=== PATIENT | female | born 1965 | race Caucasian/White ===

== ENCOUNTER 2016-08-24 12:12 | Inpatient (IN) | payer MEDICARE, OTHER ==
[2016-08-24] MEDS ORDERED: methylPREDNISolone SOD SUCCI 125 MG/2 ML VIAL IV STA (12:32)
[2016-08-24] MEDS ORDERED: LEVOFLOXACIN 750MG-D5W PMX 750 MG in DEXTROSE/WATER 1 150ML.BAG IVPB STA (12:32)
[2016-08-24] MEDS ORDERED: ASPIRIN 81 MG CHEW PO STA (12:34)
--- NOTE | 2016-08-24 12:43 | ED ---
SOB HPI - General Chief Complaint: Shortness of Breath Stated Complaint: SOILA Time Seen by Provider: 08/24/16 12:25 Source: patient Mode of arrival: wheelchair Limitations: no limitations - History of Present Illness Initial Comments: This 51-year-old white female presents with complaint of shortness of breath. She barely has chronic COPD and congestive heart failure. She is on oxygen 24 hours per day. Her physician apparently wanted her to have a trial of not being on oxygen to further assess for eligibility of continued oxygen through insurance. She stopped her oxygen last night. She states that she lasted approximately one and a half hours. Her pulse ox well on the 4 L was initially 96% and dropped down to 54% before she could no longer tolerate not being on the oxygen. She states that she's had increased shortness of breath ever since that time. She did take her breathing treatments this morning with minimal relief. She denies any fevers or chills. She has had a slight cough with yellowish production. She said some mild rhinorrhea. She describes a minimal dull uppers sternal chest pain. She states that she feels congested in her chest. No other complaints or modifying factors. - Related Data Home Medications Medication Instructions Recorded Confirmed Famotidine [Pepcid] 20 mg PO DAILY 08/19/14 08/24/16 Loratadine 10 mg PO DAILY PRN 08/19/14 08/24/16 Ferrous Sulfate [Iron (65 MG 325 mg PO DAILY 08/20/14 08/24/16 Elemental)] Nitroglycerin Sl Tabs [Nitrostat] 0.4 mg SUBLINGUAL Q5M PRN 08/20/14 08/24/16 metFORMIN HCL 1,000 mg PO AC-BID 08/20/14 08/24/16 Albuterol Nebulized [Ventolin 3 ml INHALATION RT-TID 03/13/15 08/24/16 Nebulized] Lisinopril [Zestril] 5 mg PO DAILY 03/13/15 08/24/16 Gabapentin [Neurontin] 300 mg PO BID 03/15/16 08/24/16 Simvastatin [Zocor] 40 mg PO HS 03/15/16 08/24/16 Febuxostat [Uloric] 80 mg PO DAILY 05/04/16 08/24/16 Umeclidinium Brm/Vilanterol Tr 1 puff INHALATION RT-DAILY 05/04/16 08/24/16 [Anoro Ellipta 62.5-25 Mcg INH] Furosemide [Lasix] 80 mg PO BID@0900,1600 06/08/16 08/24/16 Insulin Glargine [Lantus] 120 unit SQ DAILY@0900 06/08/16 08/24/16 Pregabalin [Lyrica] 100 mg PO BID 06/08/16 08/24/16 Metoprolol Tartrate [Lopressor] 12.5 mg PO DAILY 07/18/16 08/24/16 Montelukast [Singulair] 10 mg PO HS 07/18/16 08/24/16 Albuterol Inhaler [Ventolin Hfa 1 - 2 puff INHALATION RT-Q6H PRN 08/24/16 Inhaler] Previous Rx's Medication Instructions Recorded Ipratropium-Albuterol Nebulize 3 ml INHALATION RT-Q4H PRN #0 05/06/16 [Duoneb 0.5 mg-3 mg/3 ml Soln] ampul.neb traMADol HCl [Ultram] 50 mg PO QID PRN #0 tab 05/06/16 INSULIN LISPRO (humaLOG) [humaLOG 10 unit SQ AC-TID #1 vial 05/25/16 (formulary)] Potassium Chloride ER [K-Dur 20] 20 meq PO BID tab.er.prt 05/25/16 Allergies Allergy/AdvReac Type Severity Reaction Status Date / Time No Known Allergies Allergy Verified 08/24/16 13:12 Review of Systems ROS Statement: Those systems with pertinent positive or pertinent negative responses have been documented in the HPI. ROS Other: All systems not noted in ROS Statement are negative. Past Medical History Past Medical History: Asthma, Chest Pain / Angina, Heart Failure, COPD, Diabetes Mellitus, Hyperlipidemia, Hypertension, Neurologic Disorder, Osteoarthritis (OA), Pneumonia, Respiratory Disorder, Sleep Apnea/CPAP/BIPAP, Syncope, Thyroid Disorder Additional Past Medical History / Comment(s): GOUT, NEUROPATHY-FEET, sleep apnea but won't wear cpap, has home 02 4 liters n/c atc, past resp failure, History of Any Multi-Drug Resistant Organisms: None Reported Past Surgical History: Section Additional Past Surgical History / Comment(s): LT CARPAL TUNNEL Past Anesthesia/Blood Transfusion Reactions: No Reported Reaction Additional Past Anesthesia/Blood Transfusion Reaction / Comment(s): CLAUSTERPHOBIA Past Psychological History: No Psychological Hx Reported Additional Psychological History / Comment(s): PT LIVES AT HOME WITH A FRIEND, CURRENTLY RECIEVING HOME CARE SERVICES THRU [facility] NURSE AND PT WEEKLY. Smoking Status: Former smoker Past Alcohol Use History: None Reported Additional Past Alcohol Use History / Comment(s): STARTED SMOKING 1975-STOPPED 2007 Past Drug Use History: None Reported - Past Family History Father Family Medical History: COPD, Diabetes Mellitus Mother History Unknown: Yes Family Medical History: No Reported History Additional Family Medical History / Comment(s): AT AGE 43 FROM SUICIDE General Exam - General Exam Comments Initial Comments: GENERAL: The patient is well nourished and well hydrated. VITAL SIGNS: Heart rate, blood pressure, respiratory rate reviewed as recorded in nurse's notes. EYES: Pupils are round and reactive. Extraocular movements are intact. No conjunctival / lid redness or swelling. ENT: No external evidence of injury, swelling, or ecchymosis. Airway is patent. Throat is clear. NECK: Nontender. No swelling or evidence of injury. No subcutaneous emphysema. Trachea is midline. No thyroid mass. HEART: Regular rate and rhythm. Good peripheral pulses. LUNGS/CHEST: Decreased respirations noted bilaterally. No ecchymosis, subcutaneous emphysema, or tenderness. ABDOMEN: Abdomen soft without tenderness. No palpable masses or organomegaly. No peritoneal signs. No abdominal wall swelling or ecchymosis. Morbidly obese. EXTREMITIES: No extremity tenderness. Normal muscle tone and function. No thoracolumbar tenderness. NEUROLOGIC: Sensation is grossly intact. Cranial nerve exam reveals face is symmetrical, tongue is midline, speech is clear. SKIN: No abrasions or ecchymosis is noted. No induration or masses noted. PSYCHIATRIC: Alert and oriented. Appropriate behavior and judgment. Limitations: no limitations Course Vital Signs 08/24/16 08/24/16 08/24/16 12:17 13:34 13:46 Temperature 99.3 F Pulse Rate 99 74 76 Respiratory 24 Rate Blood Pressure 120/67 O2 Sat by Pulse 84 L Oximetry 08/24/16 14:08 Temperature Pulse Rate 88 Respiratory 22 Rate Blood Pressure 97/51 O2 Sat by Pulse 91 L Oximetry Medical Decision Making - Medical Decision Making The patient was seen and examined. All diagnostics were reviewed. The patient is placed on a registered nurse cardiac and no ectopy is identified. The EKG was done and shows a normal sinus rhythm at a rate of 87. There is some mild artifact noted. There is no acute ST-T wave changes identified. The VT interval is 208 , castration is 78, and the QTc interval is 438. This is consistent with previous EKG dated 07/18/2016. Old records were reviewed. Patient had a chest x-ray which did not show any acute process per radiology. The laboratories reviewed shows elevation of the CO2 at 44 consistent with her severe COPD. Her glucose is elevated at 192 and chloride is down at 93. Is felt that she likely does have an exacerbation of her COPD. The possibility of a bronchitis is certainly possible as well. Is felt as though she would require admission to the hospital she does have acute respiratory failure. The case will be discussed with internal medicine their future and patient admitted to the telemetry unit for further treatment. - Lab Data Result diagrams: 08/24/16 12:55 08/24/16 12:55 Lab Results 08/24/16 08/24/16 08/24/16 Range/Units 12:55 12:55 12:55 WBC 5.8 (3.8-10.6) k/uL RBC 4.43 (3.80-5.40) m/uL Hgb 12.9 (11.4-16.0) gm/dL Hct 42.1 (34.0-46.0) % MCV 95.0 (80.0-100.0) fL MCH 29.2 (25.0-35.0) pg MCHC 30.7 L (31.0-37.0) g/dL RDW 13.5 (11.5-15.5) % Plt Count 359 (150-450) k/uL Neutrophils % 73 % Lymphocytes % 16 % Monocytes % 8 % Eosinophils % 2 % Basophils % 1 % Neutrophils # 4.2 (1.3-7.7) k/uL Lymphocytes # 0.9 L (1.0-4.8) k/uL Monocytes # 0.5 (0-1.0) k/uL Eosinophils # 0.1 (0-0.7) k/uL Basophils # 0.0 (0-0.2) k/uL Hypochromasia Slight PT (9.0-12.0) sec INR (<1.1) APTT (22.0-30.0) sec Sodium 147 H (137-145) mmol/L Potassium 4.6 (3.5-5.1) mmol/L Chloride 93 L (98-107) mmol/L Carbon Dioxide 44 H* (22-30) mmol/L Anion Gap 10 mmol/L BUN 24 H (7-17) mg/dL Creatinine 0.93 (0.52-1.04) mg/dL Est GFR (MDRD) Af Amer >60 (>60 ml/min/1.73 sqM) Est GFR (MDRD) Non-Af >60 (>60 ml/min/1.73 sqM) Glucose 192 H (74-99) mg/dL Calcium 9.6 (8.4-10.2) mg/dL Total Bilirubin 0.4 (0.2-1.3) mg/dL AST 22 (14-36) U/L ALT 50 (9-52) U/L Alkaline Phosphatase 90 (38-126) U/L Total Creatine Kinase 28 L (30-135) U/L CK-MB (CK-2) 0.4 (0.0-2.4) ng/mL CK-MB (CK-2) Rel Index 1.4 Troponin I <0.012 (0.000-0.034) ng/mL NT-Pro-B Natriuret Pep pg/mL Total Protein 7.0 (6.3-8.2) g/dL Albumin 3.9 (3.5-5.0) g/dL 08/24/16 08/24/16 Range/Units 12:55 12:55 WBC (3.8-10.6) k/uL RBC (3.80-5.40) m/uL Hgb (11.4-16.0) gm/dL Hct (34.0-46.0) % MCV (80.0-100.0) fL MCH (25.0-35.0) pg MCHC (31.0-37.0) g/dL RDW (11.5-15.5) % Plt Count (150-450) k/uL Neutrophils % % Lymphocytes % % Monocytes % % Eosinophils % % Basophils % % Neutrophils # (1.3-7.7) k/uL Lymphocytes # (1.0-4.8) k/uL Monocytes # (0-1.0) k/uL Eosinophils # (0-0.7) k/uL Basophils # (0-0.2) k/uL Hypochromasia PT 10.3 (9.0-12.0) sec INR 1.0 (<1.1) APTT 23.1 (22.0-30.0) sec Sodium (137-145) mmol/L Potassium (3.5-5.1) mmol/L Chloride (98-107) mmol/L Carbon Dioxide (22-30) mmol/L Anion Gap mmol/L BUN (7-17) mg/dL Creatinine (0.52-1.04) mg/dL Est GFR (MDRD) Af Amer (>60 ml/min/1.73 sqM) Est GFR (MDRD) Non-Af (>60 ml/min/1.73 sqM) Glucose (74-99) mg/dL Calcium (8.4-10.2) mg/dL Total Bilirubin (0.2-1.3) mg/dL AST (14-36) U/L ALT (9-52) U/L Alkaline Phosphatase (38-126) U/L Total Creatine Kinase (30-135) U/L CK-MB (CK-2) (0.0-2.4) ng/mL CK-MB (CK-2) Rel Index Troponin I (0.000-0.034) ng/mL NT-Pro-B Natriuret Pep 32 pg/mL Total Protein (6.3-8.2) g/dL Albumin (3.5-5.0) g/dL Disposition Clinical Impression: Morbid obesity, Bronchitis, Diabetes, Acute respiratory failure with hypoxia, COPD exacerbation, Chest pain Disposition: ADMITTED IP TO THIS [facility] Condition: Fair Time of Disposition: 14:59 Decision Date: 08/24/16 Decision Time: 14:59
[2016-08-24] MEDS: IPRATROPIUM-ALBUTEROL 3 ML NEB INHALATION STA ×2 (13:32→13:33)
[2016-08-24 13:34] LABS: Basophils % (A) 1 %; CH 29.9; CHCM 31.6; Eosinophils # (A) 0.1 k/uL (0-0.7); Eosinophils % (A) 2 %; HCT 42.1 % (34.0-46.0); HDW 2.91; HGB 12.9 gm/dL (11.4-16.0); Hypochromasia Slight; Luc # (Auto) 0.09; Luc % (Auto) 2; Lymphocytes # (A) 0.9 k/uL (1.0-4.8); Lymphocytes % (A) 16 %; MCH 29.2 pg (25.0-35.0); MCHC 30.7 g/dL (31.0-37.0); Monocytes # (A) 0.5 k/uL (0-1.0); Monocytes % (A) 8 %; Neutrophils # (A) 4.2 k/uL (1.3-7.7); Neutrophils % (A) 73 %; RBC 4.43 m/uL (3.80-5.40); RDW 13.5 % (11.5-15.5); WBC 5.8 k/uL (3.8-10.6); WBC (Perox) 6.09
[2016-08-24 13:44] LABS: Partial Thromboplastin Time 23.1 sec (22.0-30.0); Prothrombin Time 10.3 sec (9.0-12.0)
[2016-08-24 13:58] LABS: Creatine Kinase 28 U/L (30-135)
[2016-08-24 13:59] LABS: ALT 50 U/L (9-52); AST 22 U/L (14-36); Alkaline Phosphatase 90 U/L (38-126); Blood Urea Nitrogen 24 mg/dL (7-17); Calcium 9.6 mg/dL (8.4-10.2); Chloride 93 mmol/L (98-107); Glucose 192 mg/dL (74-99); Non-African American GFR(MDRD) >60 (>60 ml/min/1.73 sqM); Potassium 4.6 mmol/L (3.5-5.1); Sodium 147 mmol/L (137-145); Total Bilirubin 0.4 mg/dL (0.2-1.3)
--- NOTE | 2016-08-24 14:04 | XR ---
EXAMINATION TYPE: XR chest 2V DATE OF EXAM: 08/24/2016 1:58 PM COMPARISON: Prior chest x-ray July 18, 2016. Prior CT chest August 10, 2016 HISTORY: History of COPD and CHF presents with shortness of breath TECHNIQUE: Frontal and lateral views of the chest are obtained. FINDINGS: Left mid lung linear scarring is redemonstrated. There is no suspicious new focal air spac e opacity, pleural effusion, or pneumothorax seen. The cardiac silhouette size is enlarged. The os seous structures are intact. IMPRESSION: Cardiomegaly with left mid lung scarring. No acute pulmonary process is identified. No s ignificant change from prior studies is seen.
[2016-08-24 14:06] LABS: Anion Gap 10 mmol/L
[2016-08-24 14:08] LABS: Carbon Dioxide 44 mmol/L (22-30)
[2016-08-24 14:11] LABS: Creatine Kinase MB 0.4 ng/mL (0.0-2.4); Troponin I <0.012 ng/mL (0.000-0.034)
[2016-08-24] MEDS ORDERED: NITROGLYCERIN SL TABS 0.4 MG TAB SUBLINGUAL PRN (15:02)
[2016-08-24] MEDS ORDERED: IPRATROPIUM-ALBUTEROL 3 ML NEB INHALATION PRN (15:02)
[2016-08-24] MEDS ORDERED: LORATADINE 10 MG TAB PO PRN (15:02)
[2016-08-24 17:50] LABS: Glucose,Whole Blood 270 mg/dL (75-99)
[2016-08-24] MEDS ORDERED: methylPREDNISolone SOD SUCCI 125 MG/2 ML VIAL IV SCH (18:00)
[2016-08-24] MEDS: INSULIN LISPRO (humaLOG) 300 UNIT/3 ML VIAL SQ SCH (18:08)
[2016-08-24] MEDS: FUROSEMIDE 80 MG TAB PO SCH (18:11)
[2016-08-24] MEDS: metFORMIN 500 MG TAB PO SCH (18:11)
--- NOTE | 2016-08-24 18:54 | HP ---
DATE OF ADMISSION: Patient is a 51-year-old female with a significant past medical history of morbid obesity, obstructive sleep apnea, restrictive lung disease, COPD, severe pulmonary hypertension. She came in with complaints of shortness of breath and ( ). Patient was told by her physician to cut stop the oxygen and see how she does, and patient stopped the oxygen; an hour later patient became more short of breath, found to have hypoxemia with saturations going ( ) 55%, because of which patient came to ER. Patient usually uses 4 L of oxygen. Patient is requiring 6 L at this point of time. Patient denied any nausea, vomiting. Patient was having some dry cough. Patient denied any sputum production. Patient denied any fever or chills. Chest x-ray did not show any significant pneumonic process. Patient denied any orthopnea or PND. Patient did not have any evidence of congestive heart failure but has right-sided heart failure and pedal edema, for which she takes Lasix. Patient was started on systemic steroids ( ) steroids may be minimally helpful because of mostly her restrictive lung disease ( ) Home medications include: 1. Famotidine. 2. Loratadine. 3. Ferrous sulfate. 4. Nitroglycerin. 5. Metformin. 6. Albuterol. 7. Lisinopril. 8. Gabapentin. 9. Simvastatin. 10. Uloric. 11. Lasix. 12. Lantus. 13. Pregabalin. 14. Metoprolol. 15. Montelukast (Singulair). 16. Insulin. 17. Potassium supplementation. ALLERGIES: NO KNOWN DRUG ALLERGIES. REVIEW OF SYSTEMS: CONSTITUTIONAL: No fever, no malaise, no fatigue. HEENT: No recent visual problems or hearing problems. Denied any sore throat. CARDIOVASCULAR: No chest pain, orthopnea, PND, no palpitations, no syncope. PULMONARY: As described in HPI. GASTROINTESTINAL: No diarrhea, no nausea, no vomiting, no abdominal pain. Normoactive bowel sounds. NEUROLOGICAL: No headaches, no weakness, no numbness. HEMATOLOGICAL: Denies any bleeding or petechiae. GENITOURINARY: Denies any burning micturition, frequency, or urgency. MUSCULOSKELETAL/RHEUMATOLOGICAL: Denies any joint pain, swelling, or any muscle pain. ENDOCRINE: Denies any polyuria or polydipsia. The rest of the 14 point review of systems is negative. Past medical history is significant for: 1. COPD. 2. Diabetes mellitus. 3. Hyperlipidemia. 4. Hypertension. 5. Osteoarthritis. 6. Sleep apnea; uses CPAP machine at home. 7. Hypothyroidism. 8. Carpal tunnel syndrome. 9. Claustrophobia. Social smoker; quit smoking in 2007. Denied any alcohol abuse or any drug abuse. FAMILY HISTORY: Father had COPD and diabetes mellitus. Mother had no significant reported history; at age 43 from suicide. PHYSICAL EXAMINATION: VITAL SIGNS: Temperature 99.3, pulse of 99. Pulse ox with 4 L was around 74%. Respiratory rate of 22. Saturating at 91% on 6 L of oxygen by nasal cannula. Patient's blood pressure is 97/51. GENERAL: Morbidly obese female. Alert and oriented x3. HEENT: Pupils are round and equally reacting to light. EOMI. No scleral icterus. No conjunctival pallor. Normocephalic, atraumatic. No pharyngeal erythema. No thyromegaly. CARDIOVASCULAR: S1 and S2 present. No murmurs, rubs, or gallops. PULMONARY: Decreased air entry to bilateral lung garibay. Minimal bilateral expiratory wheezing was appreciated. ABDOMEN: Soft, nontender, nondistended, normoactive bowel sounds. No palpable organomegaly. MUSCULOSKELETAL: No joint swelling or deformity. EXTREMITIES: Patient does have pedal edema. NEUROLOGICAL: Gross neurological examination did not reveal any focal deficits. SKIN: No rashes. LABORATORY DATA: CBC, CMP are abnormal for elevated bicarbonate of 44 secondary to chronic CO2 retention as well as probability of some contraction alkalosis. CBC did not show any leukocytosis. Chest x-ray as mentioned above ( ) within normal limits as well. ASSESSMENT AND PLAN: 1. Acute on chronic obstructive pulmonary disease exacerbation with the possibility of tracheobronchitis. Patient is on levofloxacin; I will just leave it alone for today; may not benefit much from the antibiotics. Patient has multiple pulmonary comorbidities which are affecting her respiratory status. Patient easily can get exacerbation from COPD because of the other multiple pulmonary comorbidities, including significant restrictive lung disease from morbid obesity, sleep apnea and pulmonary hypertension. Patient is on systemic steroids, inhalational treatment. Will continue with that. Her crusher and blender operator, Dr. Maciej Avila, was consulted. 2. Morbid obesity and sleep apnea syndrome. Counseling was provided. 3. Severe pulmonary hypertension. 4. Pedal edema secondary to right-sided heart failure. Continue with Lasix. Her kidney function is essentially within normal limits. 5. Elevated bicarbonate secondary to chronic carbon dioxide retention. 6. Diabetes mellitus. 7. Hyperlipidemia. 8. Hypertension. 9. Osteoarthritis. For above-mentioned chronic medical problems, will go ahead and continue her home medications. Will titrate insulin as needed. Because of the systemic steroids, patient will have elevated blood sugars, for which we will titrate the insulin as needed here. Patient primary care physician is Dr. Herrera Dimas.
[2016-08-24 20:08] LABS: Creatine Kinase 28 U/L (30-135)
[2016-08-24] MEDS: IPRATROPIUM-ALBUTEROL 3 ML NEB INHALATION PRN (20:10)
[2016-08-24] MEDS: BUDESONIDE 0.5 MG/2 ML NEBU INHALATION SCH (20:10)
[2016-08-24 20:13] LABS: Glucose,Whole Blood 343 mg/dL (75-99)
[2016-08-24 20:21] LABS: Creatine Kinase MB 0.3 ng/mL (0.0-2.4); Troponin I <0.012 ng/mL (0.000-0.034)
[2016-08-24] MEDS: PREGABALIN 100 MG CAP PO SCH (20:58)
[2016-08-24] MEDS: GABAPENTIN 300 MG CAP PO SCH (20:58)
[2016-08-24] MEDS: MONTELUKAST 10 MG TAB PO SCH (20:58)
[2016-08-24] MEDS: ATORVASTATIN 20 MG TAB PO SCH (20:58)
[2016-08-24] MEDS: POTASSIUM CHLORIDE ER 20 MEQ TAB.ER PO SCH (20:58)
[2016-08-24] MEDS: traMADol 50 MG TAB PO PRN (23:27)
[2016-08-24] MEDS: methylPREDNISolone SOD SUCCI 40 MG/ML 1 ML VIAL IV SCH (23:33)
[2016-08-25 02:14] LABS: Creatine Kinase 31 U/L (30-135)
[2016-08-25 02:27] LABS: Creatine Kinase MB 0.4 ng/mL (0.0-2.4); Troponin I <0.012 ng/mL (0.000-0.034)
[2016-08-25 05:38] LABS: Glucose,Whole Blood 356 mg/dL (75-99)
[2016-08-25 06:10] LABS: CH 29.5; HCT 38.9 % (34.0-46.0); HDW 2.82; Hypochromasia Slight; MCH 29.4 pg (25.0-35.0); MCHC 30.8 g/dL (31.0-37.0); MCV 95.4 fL (80.0-100.0); Mean Platelet Volume 7.2; RBC 4.08 m/uL (3.80-5.40); RDW 13.1 % (11.5-15.5); WBC 5.5 k/uL (3.8-10.6)
[2016-08-25 06:24] LABS: Anion Gap 15 mmol/L; Blood Urea Nitrogen 33 mg/dL (7-17); Calcium 9.7 mg/dL (8.4-10.2); Carbon Dioxide 37 mmol/L (22-30); Chloride 91 mmol/L (98-107); Cholesterol 168 mg/dL (<200); Glucose 383 mg/dL (74-99); HDL Cholesterol 37 mg/dL (40-60); Non-African American GFR(MDRD) >60 (>60 ml/min/1.73 sqM); Potassium 5.1 mmol/L (3.5-5.1); Sodium 143 mmol/L (137-145); Triglycerides 85 mg/dL (<150)
[2016-08-25] MEDS: metFORMIN 500 MG TAB PO SCH ×2 (07:19→17:55)
[2016-08-25] MEDS: INSULIN LISPRO (humaLOG) 300 UNIT/3 ML VIAL SQ SCH ×8 (07:20→19:51)
[2016-08-25] MEDS ORDERED: IPRATROPIUM-ALBUTEROL 3 ML NEB INHALATION SCH (08:00)
[2016-08-25] MEDS: BUDESONIDE 0.5 MG/2 ML NEBU INHALATION SCH ×2 (08:17→19:44)
[2016-08-25] MEDS: IPRATROPIUM-ALBUTEROL 3 ML NEB INHALATION PRN ×4 (08:17→19:44)
[2016-08-25] MEDS ORDERED: LEVOFLOXACIN 750MG-D5W PMX 750 MG in DEXTROSE/WATER 1 150ML.BAG IVPB SCH (09:00)
[2016-08-25] MEDS ORDERED: LISINOPRIL 5 MG TAB PO SCH (09:00)
--- NOTE | 2016-08-25 09:09 | CDI ---
In responding to this query, please exercise your independent professional judgment. The [facility] Coding Staff and Clinical Documentation Specialists appreciate your assistance in clarifying documentation, maintaining compliance with coding guidelines, accurately documenting patients condition and capturing severity of illness. The fact that a question is asked does not imply that any particular answer is desired or expected. Communication forms are a method of clarifying documentation and are not made part of the Legal Health Record. Thank you in advance for your clarification. Last Revision, October 2015 Cam Cho [address] [facility] [place] [address] Documentation Clarification Form Date: 08/25/2016 8:39:00 AM From: Bhumika Colon Admit Date: 08/24/2016 2:59:00 PM Patient Name: Vish Sam Visit Number: [id number] Dr. Colt Rudd History/Risk Factors: COPD CHF Morbid Obesity Diabetes Mellitus Exsmoker Home oxygen Clinical Indicators: Vital signs: RR 24, O2 sats 84% on 4L nasal cannula Found to have hypoxemia with sats down to 55% at home per H&P and ED report Treatment: Breathing tx IV Levaquin IV steroids O2 nasal cannula 4-6L In your professional opinion, can you please clarify if these findings signify one of the following conditions? Acuity: o Acute o Chronic o Acute on Chronic Respiratory Status: o Respiratory failure with hypercapnia o Respiratory failure with hypoxia o Other Diagnosis, please specify o Unable to determine Please document in your progress notes and discharge summary in order to capture severity of illness and risk of mortality. Include clinical findings that support your diagnosis. FYI: Press F11 to launch patient chart. Place X here if this finding has no clinical significance, is not applicable or if you are not able to provide any additional documentation. TOSIN
[2016-08-25] MEDS: methylPREDNISolone SOD SUCCI 40 MG/ML 1 ML VIAL IV SCH ×3 (09:22→22:48)
[2016-08-25] MEDS: ENOXAPARIN 40 MG/0.4 ML SYRINGE SQ SCH (09:23)
[2016-08-25] MEDS: GABAPENTIN 300 MG CAP PO SCH ×2 (09:23→17:58)
[2016-08-25] MEDS: ASPIRIN 325 MG TAB PO SCH (09:23)
[2016-08-25] MEDS: FAMOTIDINE 20 MG TAB PO SCH (09:24)
[2016-08-25] MEDS: FUROSEMIDE 80 MG TAB PO SCH ×2 (09:24→15:44)
[2016-08-25] MEDS: METOPROLOL TARTRATE 12.5 MG TAB PO SCH (09:24)
[2016-08-25] MEDS: ALLOPURINOL 100 MG TAB PO SCH ×2 (09:24→17:57)
[2016-08-25] MEDS: POTASSIUM CHLORIDE ER 20 MEQ TAB.ER PO SCH ×2 (09:25→17:58)
[2016-08-25] MEDS: FERROUS SULFATE 325 MG TAB PO SCH (09:25)
[2016-08-25] MEDS: PREGABALIN 100 MG CAP PO SCH ×3 (09:26→20:39)
[2016-08-25] MEDS: INSULIN GLARGINE 100 UNIT/ML 10 ML VIAL SQ SCH (09:27)
[2016-08-25] MEDS: traMADol 50 MG TAB PO PRN ×3 (09:40→22:48)
[2016-08-25 11:05] LABS: Hemoglobin A1C 8.4 % (4.2-6.1)
[2016-08-25 11:33] LABS: Glucose,Whole Blood 332 mg/dL (75-99)
--- NOTE | 2016-08-25 12:08 | P.PN ---
Subjective Principal diagnosis: Hypoxemia Patient seen and examined. Patient states her breathing is much better. She states she will never go without her oxygen again. She states she otherwise feels fine. Her breathing is at baseline. Objective - Vital Signs Vital signs: Vital Signs Temp 97.3 F L 08/25/16 03:41 Pulse 78 08/25/16 11:54 Resp 20 08/25/16 03:41 BP 123/58 08/25/16 03:41 Pulse Ox 91 L 08/25/16 03:41 Intake & Output 08/24/16 08/25/16 08/25/16 18:59 06:59 18:59 Intake Total 220 180 Output Total 2700 Balance 220 -2700 180 Weight 168.6 kg Intake: Oral 220 180 Output: Urine 2700 - Exam Gen.: Patient is alert and oriented 3, no acute distress, morbidly obese cardiovascular: Regular rate and rhythm, S1/S2 Lungs: Diminished breath sounds bilaterally otherwise clear Abdomen: Soft nontender nondistended positive bowel sounds Extremities: 2+ pitting edema - Labs CBC & Chem 7: 08/25/16 05:39 08/25/16 05:39 Labs: Abnormal Lab Results - Last 24 Hours (Table) 08/24/16 08/24/16 08/24/16 Range/Units 17:48 19:25 20:11 MCHC (31.0-37.0) g/dL Chloride (98-107) mmol/L Carbon Dioxide (22-30) mmol/L BUN (7-17) mg/dL Glucose (74-99) mg/dL POC Glucose (mg/dL) 270 H 343 H (75-99) mg/dL Hemoglobin A1c (4.2-6.1) % Total Creatine Kinase 28 L (30-135) U/L LDL Cholesterol, Calc (0-99) mg/dL HDL Cholesterol (40-60) mg/dL 08/25/16 08/25/16 08/25/16 Range/Units 05:33 05:39 05:39 MCHC 30.8 L (31.0-37.0) g/dL Chloride 91 L (98-107) mmol/L Carbon Dioxide 37 H (22-30) mmol/L BUN 33 H (7-17) mg/dL Glucose 383 H (74-99) mg/dL POC Glucose (mg/dL) 356 H (75-99) mg/dL Hemoglobin A1c (4.2-6.1) % Total Creatine Kinase (30-135) U/L LDL Cholesterol, Calc 114 H (0-99) mg/dL HDL Cholesterol 37 L (40-60) mg/dL 08/25/16 08/25/16 Range/Units 05:39 11:32 MCHC (31.0-37.0) g/dL Chloride (98-107) mmol/L Carbon Dioxide (22-30) mmol/L BUN (7-17) mg/dL Glucose (74-99) mg/dL POC Glucose (mg/dL) 332 H (75-99) mg/dL Hemoglobin A1c 8.4 H (4.2-6.1) % Total Creatine Kinase (30-135) U/L LDL Cholesterol, Calc (0-99) mg/dL HDL Cholesterol (40-60) mg/dL Assessment and Plan Plan: Acute on chronic hypoxic respiratory failure Acute exacerbation of COPD and asthma Hypercarbia Pulmonary hypertension with cor pulmonale Morbidly obesity, highly suspect obstructive sleep apnea/obesity hypoventilation syndrome Lung nodule which is PET positive consistent with cancer, patient undergoing radiation therapy diabetes mellitus type 2 uncontrolled Dyslipidemia Hypertension hypothyroidism Medical noncompliance O2 saturation greater than or equal to 88% Bronchodilators and Pulmicort Diuresis Singulair Recommend outpatient PSG Blood sugar control Steroid taper Incentive spirometry and pulmonary hygiene Pulmonary rehab was discussed on an outpatient basis patient has declined Okay to DC from pulmonary standpoint
[2016-08-25 17:04] LABS: Glucose,Whole Blood 335 mg/dL (75-99)
[2016-08-25] MEDS: MONTELUKAST 10 MG TAB PO SCH (17:58)
[2016-08-25] MEDS: ATORVASTATIN 20 MG TAB PO SCH (19:02)
[2016-08-25 19:24] LABS: Glucose,Whole Blood 324 mg/dL (75-99)
[2016-08-26] MEDS: traMADol 50 MG TAB PO PRN ×2 (04:35→22:56)
[2016-08-26 06:04] LABS: Glucose,Whole Blood 328 mg/dL (75-99)
[2016-08-26] MEDS: INSULIN LISPRO (humaLOG) 300 UNIT/3 ML VIAL SQ SCH ×7 (07:27→20:55)
[2016-08-26] MEDS: metFORMIN 500 MG TAB PO SCH ×2 (07:27→16:53)
[2016-08-26] MEDS: ENOXAPARIN 40 MG/0.4 ML SYRINGE SQ SCH (08:19)
[2016-08-26] MEDS: ALLOPURINOL 100 MG TAB PO SCH ×2 (08:20→20:30)
[2016-08-26] MEDS: METOPROLOL TARTRATE 12.5 MG TAB PO SCH (08:20)
[2016-08-26] MEDS: FUROSEMIDE 80 MG TAB PO SCH ×2 (08:20→16:53)
[2016-08-26] MEDS: PREGABALIN 100 MG CAP PO SCH ×2 (08:20→20:29)
[2016-08-26] MEDS: LEVOFLOXACIN 750 MG TAB PO SCH (08:20)
[2016-08-26] MEDS: POTASSIUM CHLORIDE ER 20 MEQ TAB.ER PO SCH ×2 (08:20→20:30)
[2016-08-26] MEDS: methylPREDNISolone SOD SUCCI 40 MG/ML 1 ML VIAL IV SCH (08:21)
[2016-08-26] MEDS: FAMOTIDINE 20 MG TAB PO SCH (08:21)
[2016-08-26] MEDS: GABAPENTIN 300 MG CAP PO SCH ×2 (08:21→20:29)
[2016-08-26] MEDS: ASPIRIN 325 MG TAB PO SCH (08:21)
[2016-08-26] MEDS: FERROUS SULFATE 325 MG TAB PO SCH (08:21)
[2016-08-26] MEDS: INSULIN GLARGINE 100 UNIT/ML 10 ML VIAL SQ SCH (08:29)
[2016-08-26] MEDS: BUDESONIDE 0.5 MG/2 ML NEBU INHALATION SCH ×2 (08:38→20:57)
[2016-08-26] MEDS: IPRATROPIUM-ALBUTEROL 3 ML NEB INHALATION PRN ×4 (08:38→20:57)
[2016-08-26 11:24] LABS: Glucose,Whole Blood 314 mg/dL (75-99)
[2016-08-26] MEDS ORDERED: BUTA/APAP/CAF/COD 50-325-40-30 CAP PO PRN (11:32)
[2016-08-26] MEDS: BENZOCAINE/MENTHOL LOZENG 1 EACH LOZENGE MUCOUS MEM PRN ×2 (11:56→20:33)
--- NOTE | 2016-08-26 14:42 | PN ---
Patient is admitted with acute hypercapnic respiratory failure. Patient has COPD as well as obstructive lung disease and patient has chronic hypercapnic respiratory failure as well and patient is otherwise clinically doing well with significant improvement but will keep her one more day, will switch her to oral Lasix and taper down oxygen to her home oxygen that is 4 L, patient is presently at 5 L. REVIEW OF SYSTEMS: RESPIRATORY: Improved shortness of breath, but she states she is not at her baseline yet. CARDIOVASCULAR: No chest pain, no orthopnea, no PND, no palpitations. GASTROINTESTINAL: No diarrhea, nausea or vomiting. No abdominal pain. Normoactive bowel sounds. NEUROLOGIC: No headaches, no weakness, no numbness. Medications were reviewed. PHYSICAL EXAMINATION: Temperature 97.6, pulse of 80, respiratory rate of 18, blood pressure 103/58, saturating at 93% on 5 L of O2 by nasal cannula. GENERAL EXAMINATION: Morbidly obese female, alert and oriented x3. LUNG EXAMINATION: Minimally decreased air entry into bilateral lung garibay. No wheezing was appreciated. No crackles are appreciated. HEENT: Pupils are round and equally reacting to light. EOMI. No scleral icterus. No conjunctival pallor. Normocephalic, atraumatic. No pharyngeal erythema. No thyromegaly. CARDIOVASCULAR: S1 and S2 present. No murmurs, rubs, or gallops. ABDOMEN: Soft, nontender, nondistended, normoactive bowel sounds. No palpable organomegaly. MUSCULOSKELETAL: No joint swelling or deformity. EXTREMITIES: No cyanosis, clubbing, or pedal edema. NEUROLOGICAL: Gross neurological examination did not reveal any focal deficits. SKIN: No rashes. ASSESSMENT AND PLAN: 1. Acute on chronic hypercapnic respiratory failure, secondary to chronic obstructive pulmonary disease exacerbation. 2. Restrictive lung disease. 3. Morbid obesity, sleep apnea. 4. Severe pulmonary hypertension. 5. Pedal edema secondary to right-sided heart failure. 6. Chronic CO2 retention resulting in metabolic alkalosis. 7. Diabetes mellitus. 8. Hyperlipidemia. 9. Hypertension. 10. Osteoarthritis. Continue with systemic steroids, switch over to oral, will taper off oxygen for the possibility of discharge tomorrow. Will titrate insulin for elevated blood sugars, secondary to systemic steroids and patient apparently has lung nodules consistent with carcinoma or cancerous lesions for which patient received treatment and patient received radiation therapy as well. It appears that those are being followed by Pulmonology as an outpatient.
--- NOTE | 2016-08-26 14:48 | PN ---
DATE OF SERVICE: 08/25/2016 Patient is admitted with acute hypoxic respiratory failure secondary to COPD exacerbation and patient does have multiple other pulmonary comorbidities including restrictive lung disease, morbid obesity, sleep apnea. REVIEW OF SYSTEMS: CARDIOVASCULAR: No chest pain, no orthopnea, no PND, no palpitations. PULMONARY: Denied any shortness of breath. No cough or hemoptysis. GASTROINTESTINAL: No diarrhea, nausea or vomiting. No abdominal pain. Normoactive bowel sounds. NEUROLOGIC: No headaches, no weakness, no numbness. Medications are reviewed. On physical examination, vital signs, temperature is 97.8, pulse of 78, respiratory rate of 16, blood pressure is 126/66, saturating at 98% on 5 L of O2 scan. GENERAL EXAMINATION: Morbidly obese. Alert and oriented x3. LUNG EXAMINATION: Significantly decreased air entry into bilateral lung garibay. No wheezing was appreciated. No crackles were appreciated. The patient does have bilateral pedal edema. Patient does have elevated JVD secondary to right-sided heart failure and pulmonary hypertension. HEENT: Pupils are round and equally reacting to light. EOMI. No scleral icterus. No conjunctival pallor. Normocephalic, atraumatic. No pharyngeal erythema. No thyromegaly. CARDIOVASCULAR: S1 and S2 present. No murmurs, rubs, or gallops. ABDOMEN: Soft, nontender, nondistended, normoactive bowel sounds. No palpable organomegaly. MUSCULOSKELETAL: No joint swelling or deformity. EXTREMITIES: No cyanosis, clubbing, or pedal edema. NEUROLOGICAL: Gross neurological examination did not reveal any focal deficits. SKIN: No rashes. Laboratory data was reviewed. ASSESSMENT AND PLAN: 1. Acute on chronic hypercapnic respiratory failure secondary to exacerbation, with contribution from restrictive lung disease and sleep apnea. 2. Morbid obesity. 3. Pedal edema secondary to right-sided heart failure and severe pulmonary hypertension. 4. Diabetes mellitus. 5. Hyperlipidemia. 6. Hypertension. 7. Osteoarthritis. Continue steroids and inhalational treatments. Continue to monitor I's and O's, elevated blood sugars are due to systemic steroids.
--- NOTE | 2016-08-26 14:52 | P.PN ---
Subjective Principal diagnosis: Hypoxia Patient seen and examined. Patient states that she was feeling fine yesterday however today she woke up with a cough and shortness of breath. She denies fevers and chills. Objective - Vital Signs Vital signs: Vital Signs Temp 97.6 F 08/26/16 08:00 Pulse 80 08/26/16 12:09 Resp 18 08/26/16 11:16 BP 103/58 08/26/16 11:16 Pulse Ox 93 L 08/26/16 11:16 Intake & Output 08/25/16 08/26/16 08/26/16 18:59 06:59 18:59 Intake Total 1602 2030 480 Balance 1602 2030 480 Weight 168.6 kg Intake: IV 30 0.9 NS 30 Intake, IV Titration 100 Amount Levofloxacin 750Mg-D5w 100 Pmx 750 mg In Dextrose/ Water 1 150ml.bag @ 100 mls/hr IVPB DAILY SARAH Rx# :[id number] Oral 1502 2000 480 Other: # Voids 3 1 2 # Bowel Movements 1 0 - Exam Gen.: Patient is alert and oriented 3, no acute distress, morbidly obese cardiovascular: Regular rate and rhythm, S1/S2 Lungs: Diminished breath sounds bilaterally otherwise clear Abdomen: Soft nontender nondistended positive bowel sounds Extremities: 2+ pitting edema - Labs CBC & Chem 7: 08/25/16 05:39 08/25/16 05:39 Labs: Abnormal Lab Results - Last 24 Hours (Table) 08/25/16 08/25/16 08/26/16 Range/Units 17:02 19:23 06:02 POC Glucose (mg/dL) 335 H 324 H 328 H (75-99) mg/dL 08/26/16 Range/Units 11:11 POC Glucose (mg/dL) 314 H (75-99) mg/dL Assessment and Plan Plan: Acute on chronic hypoxic respiratory failure Acute exacerbation of COPD and asthma Hypercarbia Tracheobronchitis Pulmonary hypertension with cor pulmonale Morbidly obesity, highly suspect obstructive sleep apnea/obesity hypoventilation syndrome Lung nodule which is PET positive consistent with cancer, patient undergoing radiation therapy diabetes mellitus type 2 uncontrolled Dyslipidemia Hypertension hypothyroidism Medical noncompliance O2 saturation greater than or equal to 88% Bronchodilators and Pulmicort Diuresis Singulair Antibiotics: Levaquin Recommend outpatient PSG Blood sugar control Steroid taper Incentive spirometry and pulmonary hygiene Pulmonary rehab was discussed on an outpatient basis patient has declined Okay to DC from pulmonary standpoint Patient has oxygen at home, continue upon discharge
[2016-08-26 17:07] LABS: Glucose,Whole Blood 263 mg/dL (75-99)
[2016-08-26] MEDS: MONTELUKAST 10 MG TAB PO SCH (20:29)
[2016-08-26] MEDS: ATORVASTATIN 20 MG TAB PO SCH (20:30)
[2016-08-26 20:36] LABS: Glucose,Whole Blood 150 mg/dL (75-99)
[2016-08-27 06:09] LABS: Glucose,Whole Blood 115 mg/dL (75-99)
[2016-08-27] MEDS: INSULIN LISPRO (humaLOG) 300 UNIT/3 ML VIAL SQ SCH ×6 (06:14→16:59)
[2016-08-27] MEDS: metFORMIN 500 MG TAB PO SCH (07:08)
[2016-08-27] MEDS: INSULIN GLARGINE 100 UNIT/ML 10 ML VIAL SQ SCH (07:46)
[2016-08-27] MEDS: LEVOFLOXACIN 750 MG TAB PO SCH (07:47)
[2016-08-27] MEDS: GABAPENTIN 300 MG CAP PO SCH (07:47)
[2016-08-27] MEDS: ASPIRIN 325 MG TAB PO SCH (07:47)
[2016-08-27] MEDS: FAMOTIDINE 20 MG TAB PO SCH (07:47)
[2016-08-27] MEDS: ALLOPURINOL 100 MG TAB PO SCH (07:48)
[2016-08-27] MEDS: FUROSEMIDE 80 MG TAB PO SCH ×2 (07:48→16:59)
[2016-08-27] MEDS: METOPROLOL TARTRATE 12.5 MG TAB PO SCH (07:48)
[2016-08-27] MEDS: POTASSIUM CHLORIDE ER 20 MEQ TAB.ER PO SCH (07:48)
[2016-08-27] MEDS: FERROUS SULFATE 325 MG TAB PO SCH (07:49)
[2016-08-27] MEDS: PREGABALIN 100 MG CAP PO SCH (07:49)
[2016-08-27] MEDS: ENOXAPARIN 40 MG/0.4 ML SYRINGE SQ SCH (08:05)
[2016-08-27] MEDS: BUDESONIDE 0.5 MG/2 ML NEBU INHALATION SCH (08:26)
[2016-08-27] MEDS: IPRATROPIUM-ALBUTEROL 3 ML NEB INHALATION PRN ×2 (08:26→11:31)
[2016-08-27] MEDS ORDERED: predniSONE 20 MG TAB PO SCH (09:00)
[2016-08-27 11:21] VITALS: RESP 20
--- NOTE | 2016-08-27 11:40 | P.PN ---
Subjective Principal diagnosis: Hypoxemia Patient seen and examined. Patient states her cough is a little bit better today. She states she is frustrated with her recurrent hospitalizations. She states she does not like wearing CPAP or BiPAP because she moves around a lot in her sleep at night. Patient is encouraged to follow up with PSG and if needed BiPAP/CPAP titration as this will help her breathing and recurrent hospitalizations. Objective - Vital Signs Vital signs: Vital Signs Temp 96.9 F L 08/27/16 08:00 Pulse 88 08/27/16 11:33 Resp 20 08/27/16 11:19 BP 121/64 08/27/16 11:19 Pulse Ox 91 L 08/27/16 11:19 Intake & Output 08/26/16 08/27/16 08/27/16 18:59 06:59 18:59 Intake Total 600 1600 240 Balance 600 1600 240 Weight 168.1 kg Intake: Oral 600 1600 240 Other: # Voids 1 3 1 # Bowel Movements 0 0 - Exam Gen.: Patient is alert and oriented 3, no acute distress, morbidly obese cardiovascular: Regular rate and rhythm, S1/S2 Lungs: Diminished breath sounds bilaterally otherwise clear Abdomen: Soft nontender nondistended positive bowel sounds Extremities: 2+ pitting edema - Labs CBC & Chem 7: 08/25/16 05:39 08/25/16 05:39 Labs: Abnormal Lab Results - Last 24 Hours (Table) 08/26/16 08/26/16 08/27/16 Range/Units 16:52 20:35 06:08 POC Glucose (mg/dL) 263 H 150 H 115 H (75-99) mg/dL Assessment and Plan Plan: Acute on chronic hypoxic respiratory failure Acute exacerbation of COPD and asthma Hypercarbia Tracheobronchitis Pulmonary hypertension with cor pulmonale Morbidly obesity, highly suspect obstructive sleep apnea/obesity hypoventilation syndrome Lung nodule which is PET positive consistent with cancer, patient undergoing radiation therapy diabetes mellitus type 2 uncontrolled Dyslipidemia Hypertension hypothyroidism Medical noncompliance O2 saturation greater than or equal to 88% Bronchodilators and Pulmicort Diuresis Singulair Antibiotics: Levaquin Recommend outpatient PSG Blood sugar control Steroid taper Incentive spirometry and pulmonary hygiene Pulmonary rehab was discussed on an outpatient basis patient has declined Okay to DC from pulmonary standpoint Patient has oxygen at home, continue upon discharge Outpatient PSG
[2016-08-27 11:43] LABS: Glucose,Whole Blood 171 mg/dL (75-99)
[2016-08-27 15:27] VITALS: BP 118/65; PULSE 82; TEMP 97
[2016-08-27 16:56] LABS: Glucose,Whole Blood 184 mg/dL (75-99)
--- NOTE | 2016-08-27 20:51 | DS ---
DATE OF ADMISSION: 08/24/2016 DATE OF DISCHARGE: 08/27/2016 Patient was admitted with acute hypoxic respiratory failure secondary to COPD exacerbation. Patient has multiple other comorbidities, including restrictive lung disease, morbid obesity and sleep apnea. Medications were reviewed. PHYSICAL EXAMINATION: VITAL SIGNS: Temperature 96.9, pulse of 88, respiratory rate of 20. Blood pressure is 121/64. Saturating at 91% on 4 L of oxygen by nasal cannula. Patient does use 4 L at home. GENERAL: Morbidly obese. Alert and oriented x3. Patient's respiratory status is at her baseline. HEENT: Pupils are round and equally reacting to light. EOMI. No scleral icterus. No conjunctival pallor. Normocephalic, atraumatic. No pharyngeal erythema. No thyromegaly. CARDIOVASCULAR: S1 and S2 present. No murmurs, rubs, or gallops. PULMONARY: Chest is clear to auscultation, no wheezing or crackles. ABDOMEN: Soft, nontender, nondistended, normoactive bowel sounds. No palpable organomegaly. MUSCULOSKELETAL: No joint swelling or deformity. EXTREMITIES: No cyanosis, clubbing, or pedal edema. NEUROLOGICAL: Gross neurological examination did not reveal any focal deficits. SKIN: No rashes. LABORATORY DATA: None available from today. ASSESSMENT AND PLAN: 1. Acute on chronic hypercapnic respiratory failure secondary to minimal chronic obstructive pulmonary disease exacerbation with contribution from restrictive lung disease, sleep apnea, morbid obesity. 2. Pedal edema secondary to right-sided heart failure and severe pulmonary hypertension. 3. Diabetes mellitus. 4. Hyperlipidemia. 5. Hypertension. 6. Osteoarthritis. Patient's respiratory status is at her baseline. I do not believe patient will benefit from antibiotics. Patient will be discharged home. Patient will follow up with Dr. Herrera Dimas on August 31, 2016. Patient will follow up with Dr. Maciej Avila on September 01 at 11:30. Please refer to my depart summary for further details of discharge medications. Activity as tolerated. Cardiac and diabetic 1800-calorie diet. Spent greater than 35 minutes in total discharge process.
== END 2016-08-27 17:58 | disposition home health service (06) | DRG 190 ==
LOC: EC 12:12 → 6SEL 14:59
PROVIDERS: ADMIT Internal Medicine; ATTEND Internal Medicine
DX: J44.1 Chronic obstructive pulmonary disease with (acute) exacerbation (principal); J96.21 Acute and chronic respiratory failure with hypoxia; E87.3 Alkalosis; I27.2 Other secondary pulmonary hypertension; Z68.43 Body mass index [BMI] 50.0-59.9, adult; I11.0 Hypertensive heart disease with heart failure; I50.9 Heart failure, unspecified; E11.65 Type 2 diabetes mellitus with hyperglycemia; E87.70 Fluid overload, unspecified; E66.01 Morbid (severe) obesity due to excess calories; J98.4 Other disorders of lung; C80.1 Malignant (primary) neoplasm, unspecified; E03.9 Hypothyroidism, unspecified; E78.5 Hyperlipidemia, unspecified; G47.33 Obstructive sleep apnea (adult) (pediatric); J45.909 Unspecified asthma, uncomplicated; M10.9 Gout, unspecified; F40.240 Claustrophobia; T38.0X5A Adverse effect of glucocorticoids and synthetic analogues, initial encounter; M19.90 Unspecified osteoarthritis, unspecified site; Z91.19 Patient's noncompliance with other medical treatment and regimen; Z71.3 Dietary counseling and surveillance; Z87.891 Personal history of nicotine dependence; Z82.5 Family history of asthma and other chronic lower respiratory diseases
CPT/HCPCS: 36415; 71020; 80048; 80053; 80061; 82550; 82553; 83036; 83880; 84484; 85025; 85027; 85610; 85730; 87040; 93005; 94640; 96361; 96374; 99285

== ENCOUNTER 2016-09-22 18:58 | Inpatient (IN) | payer MEDICARE, OTHER ==
[2016-09-22] MEDS ORDERED: NITROGLYCERIN OINT 1 INCH/GM PACKET TOPICAL STA (19:36)
[2016-09-22] MEDS ORDERED: IPRATROPIUM-ALBUTEROL 3 ML NEB INHALATION STA (19:36)
[2016-09-22] MEDS ORDERED: methylPREDNISolone SOD SUCCI 125 MG/2 ML VIAL IV STA (19:36)
[2016-09-22] MEDS ORDERED: FUROSEMIDE 10 MG/ML 4 ML VIAL IV STA (19:36)
[2016-09-22] MEDS ORDERED: ASPIRIN 81 MG CHEW PO STA (19:37)
[2016-09-22 19:49] LABS: Basophils % (A) 0 %; CH 29.8; CHCM 32.2; Eosinophils # (A) 0.1 k/uL (0-0.7); Eosinophils % (A) 2 %; HCT 40.4 % (34.0-46.0); HDW 2.58; HGB 12.6 gm/dL (11.4-16.0); Luc # (Auto) 0.09; Luc % (Auto) 1; Lymphocytes # (A) 0.8 k/uL (1.0-4.8); Lymphocytes % (A) 13 %; MCH 28.9 pg (25.0-35.0); MCHC 31.2 g/dL (31.0-37.0); MCV 92.7 fL (80.0-100.0); Mean Platelet Volume 8.1; Monocytes # (A) 0.4 k/uL (0-1.0); Monocytes % (A) 7 %; Neutrophils # (A) 4.8 k/uL (1.3-7.7); Neutrophils % (A) 77 %; RBC 4.36 m/uL (3.80-5.40); WBC 6.2 k/uL (3.8-10.6); WBC (Perox) 6.43
--- NOTE | 2016-09-22 19:52 | ED ---
General Adult HPI - General Chief complaint: Upper Respiratory Infection Stated complaint: congestion/SOB/heart concerns Time Seen by Provider: 09/22/16 19:30 Source: patient Mode of arrival: wheelchair Limitations: no limitations - History of Present Illness Initial comments: This 51-year-old white female presents complaining of some chest congestion and shortness of breath. She states that the shortness breath is worse with any exertion whatsoever. It is been present for the last 2 days. She does complain of a left-sided intermittent chest pain which seems worse with exertion and worse with lying. She apparently has gained 12 pounds recently. She has long history of congestive heart failure as well as COPD. She has had a cough without any production. She denies any known fever but has felt hot and cold flashes at times. She was last hospitalized in [place] approximately 3 weeks ago. No other complaints or modifying factors. - Related Data Home Medications Medication Instructions Recorded Confirmed Famotidine [Pepcid] 20 mg PO DAILY 08/19/14 09/22/16 Loratadine 10 mg PO DAILY PRN 08/19/14 09/22/16 Ferrous Sulfate [Iron (65 MG 325 mg PO DAILY 08/20/14 09/22/16 Elemental)] Nitroglycerin Sl Tabs [Nitrostat] 0.4 mg SUBLINGUAL Q5M PRN 08/20/14 09/22/16 metFORMIN HCL 1,000 mg PO AC-BID 08/20/14 09/22/16 Albuterol Nebulized [Ventolin 3 ml INHALATION RT-TID 03/13/15 09/22/16 Nebulized] Lisinopril [Zestril] 5 mg PO DAILY 03/13/15 09/22/16 Gabapentin [Neurontin] 300 mg PO BID 03/15/16 09/22/16 Simvastatin [Zocor] 40 mg PO HS 03/15/16 09/22/16 Febuxostat [Uloric] 80 mg PO DAILY 05/04/16 09/22/16 Umeclidinium Brm/Vilanterol Tr 1 puff INHALATION RT-DAILY 05/04/16 09/22/16 [Anoro Ellipta 62.5-25 Mcg INH] Furosemide [Lasix] 80 mg PO BID@0900,1600 06/08/16 09/22/16 Insulin Glargine [Lantus] 120 unit SQ DAILY@0900 06/08/16 09/22/16 Pregabalin [Lyrica] 100 mg PO BID 06/08/16 09/22/16 Metoprolol Tartrate [Lopressor] 12.5 mg PO DAILY 07/18/16 09/22/16 Montelukast [Singulair] 10 mg PO HS 07/18/16 09/22/16 Albuterol Inhaler [Ventolin Hfa 1 - 2 puff INHALATION RT-Q6H PRN 08/24/16 Inhaler] predniSONE 1 dose PO DIRECTED 09/22/16 09/22/16 Previous Rx's Medication Instructions Recorded Ipratropium-Albuterol Nebulize 3 ml INHALATION RT-Q4H PRN #0 05/06/16 [Duoneb 0.5 mg-3 mg/3 ml Soln] ampul.neb traMADol HCl [Ultram] 50 mg PO QID PRN #0 tab 05/06/16 INSULIN LISPRO (humaLOG) [humaLOG 10 unit SQ AC-TID #1 vial 05/25/16 (formulary)] Potassium Chloride ER [K-Dur 20] 20 meq PO BID tab.er.prt 05/25/16 Buta/APAP/Caf/Cod 18-331-44-30 1 - 2 cap PO Q4H PRN #30 capsule 08/27/16 [Fioricet w/Cod 12-930-72-30MG] Allergies Allergy/AdvReac Type Severity Reaction Status Date / Time No Known Allergies Allergy Verified 09/22/16 20:23 Review of Systems ROS Statement: Those systems with pertinent positive or pertinent negative responses have been documented in the HPI. ROS Other: All systems not noted in ROS Statement are negative. Past Medical History Past Medical History: Asthma, Chest Pain / Angina, Heart Failure, COPD, Diabetes Mellitus, Hyperlipidemia, Hypertension, Neurologic Disorder, Osteoarthritis (OA), Pneumonia, Respiratory Disorder, Sleep Apnea/CPAP/BIPAP, Syncope, Thyroid Disorder Additional Past Medical History / Comment(s): GOUT, NEUROPATHY-FEET, sleep apnea but won't wear cpap, has home 02 4 liters n/c atc, past resp failure, hypothyroid,,lt lower lobe nodule-radiation therapy(,unsuccesful bx) History of Any Multi-Drug Resistant Organisms: None Reported Past Surgical History: Section Additional Past Surgical History / Comment(s): LT CARPAL TUNNEL, 3 unsuccessful attempts at lt lobe bx Past Anesthesia/Blood Transfusion Reactions: No Reported Reaction Additional Past Anesthesia/Blood Transfusion Reaction / Comment(s): CLAUSTERPHOBIA Past Psychological History: No Psychological Hx Reported Additional Psychological History / Comment(s): PT LIVES AT HOME WITH A FRIEND, CURRENTLY RECIEVING HOME CARE SERVICES THRU [facility]SE AND PT WEEKLY. Smoking Status: Former smoker Past Alcohol Use History: None Reported Additional Past Alcohol Use History / Comment(s): STARTED SMOKING 1975-STOPPED 2007 Past Drug Use History: None Reported - Past Family History Father Family Medical History: COPD, Diabetes Mellitus Mother History Unknown: Yes Family Medical History: No Reported History Additional Family Medical History / Comment(s): AT AGE 43 FROM SUICIDE General Exam - General Exam Comments Initial Comments: GENERAL: The patient is well nourished and well hydrated. VITAL SIGNS: Heart rate, blood pressure, respiratory rate reviewed as recorded in nurse's notes. EYES: Pupils are round and reactive. Extraocular movements are intact. No conjunctival / lid redness or swelling. ENT: No external evidence of injury, swelling, or ecchymosis. Airway is patent. Throat is clear. NECK: Nontender. No swelling or evidence of injury. No subcutaneous emphysema. Trachea is midline. No thyroid mass. HEART: Regular rate and rhythm. Good peripheral pulses. LUNGS/CHEST: Rhonchi noted bilaterally. No ecchymosis, subcutaneous emphysema, or tenderness. ABDOMEN: Abdomen soft without tenderness. No palpable masses or organomegaly. No peritoneal signs. No abdominal wall swelling or ecchymosis. EXTREMITIES: No extremity tenderness. Normal muscle tone and function. No thoracolumbar tenderness. NEUROLOGIC: Sensation is grossly intact. Cranial nerve exam reveals face is symmetrical, tongue is midline, speech is clear. SKIN: No abrasions or ecchymosis is noted. No induration or masses noted. PSYCHIATRIC: Alert and oriented. Appropriate behavior and judgment. Limitations: no limitations Course Vital Signs 09/22/16 09/22/16 09/22/16 19:04 19:20 19:30 Temperature 98.7 F Pulse Rate 97 100 Respiratory 20 224 H 24 Rate Blood Pressure 120/71 154/75 O2 Sat by Pulse 89 L 96 Oximetry 02/03/3109/22/16 09/22/16 20:02 20:05 20:14 Temperature Pulse Rate 90 99 99 Respiratory 20 Rate Blood Pressure 102/65 O2 Sat by Pulse 95 Oximetry Medical Decision Making - Medical Decision Making The patient was seen and examined. All diagnostics were reviewed. The EKG shows a normal sinus rhythm at a rate of 92. There is no acute ST T-wave changes identified. The WA interval is 162, the QRS duration is 78, and the QTc interval is 430. An IV is started and she receives aspirin, Nitropaste, and Lasix intravenously. She receives a DuoNeb breathing treatment as well as Solu-Medrol. She is still hypoxic on recheck. It is felt that she likely has an exacerbation of COPD. She also is having a degree of chest pain. It is felt that she would require admission to the hospital. Case will be discussed with internal medicine in the near future and she will be admitted to the telemetry unit. - Lab Data Result diagrams: 09/22/16 19:20 09/22/16 19:20 Lab Results 09/22/16 09/22/16 09/22/16 Range/Units 19:20 19:20 19:20 WBC 6.2 (3.8-10.6) k/uL RBC 4.36 (3.80-5.40) m/uL Hgb 12.6 (11.4-16.0) gm/dL Hct 40.4 (34.0-46.0) % MCV 92.7 (80.0-100.0) fL MCH 28.9 (25.0-35.0) pg MCHC 31.2 (31.0-37.0) g/dL RDW 13.0 (11.5-15.5) % Plt Count 231 (150-450) k/uL Neutrophils % 77 % Lymphocytes % 13 % Monocytes % 7 % Eosinophils % 2 % Basophils % 0 % Neutrophils # 4.8 (1.3-7.7) k/uL Lymphocytes # 0.8 L (1.0-4.8) k/uL Monocytes # 0.4 (0-1.0) k/uL Eosinophils # 0.1 (0-0.7) k/uL Basophils # 0.0 (0-0.2) k/uL PT (9.0-12.0) sec INR (<1.1) APTT (22.0-30.0) sec Sodium 142 (137-145) mmol/L Potassium 3.8 (3.5-5.1) mmol/L Chloride 93 L (98-107) mmol/L Carbon Dioxide 38 H (22-30) mmol/L Anion Gap 11 mmol/L BUN 24 H (7-17) mg/dL Creatinine 0.79 (0.52-1.04) mg/dL Est GFR (MDRD) Af Amer >60 (>60 ml/min/1.73 sqM) Est GFR (MDRD) Non-Af >60 (>60 ml/min/1.73 sqM) Glucose 309 H (74-99) mg/dL Calcium 9.2 (8.4-10.2) mg/dL Total Bilirubin 0.4 (0.2-1.3) mg/dL AST 17 (14-36) U/L ALT 44 (9-52) U/L Alkaline Phosphatase 77 (38-126) U/L Total Creatine Kinase 56 (30-135) U/L CK-MB (CK-2) 0.7 (0.0-2.4) ng/mL CK-MB (CK-2) Rel Index 1.3 Troponin I <0.012 (0.000-0.034) ng/mL NT-Pro-B Natriuret Pep pg/mL Total Protein 6.3 (6.3-8.2) g/dL Albumin 3.7 (3.5-5.0) g/dL 09/22/16 09/22/16 Range/Units 19:20 19:20 WBC (3.8-10.6) k/uL RBC (3.80-5.40) m/uL Hgb (11.4-16.0) gm/dL Hct (34.0-46.0) % MCV (80.0-100.0) fL MCH (25.0-35.0) pg MCHC (31.0-37.0) g/dL RDW (11.5-15.5) % Plt Count (150-450) k/uL Neutrophils % % Lymphocytes % % Monocytes % % Eosinophils % % Basophils % % Neutrophils # (1.3-7.7) k/uL Lymphocytes # (1.0-4.8) k/uL Monocytes # (0-1.0) k/uL Eosinophils # (0-0.7) k/uL Basophils # (0-0.2) k/uL PT 9.5 (9.0-12.0) sec INR 0.9 (<1.1) APTT 21.0 L (22.0-30.0) sec Sodium (137-145) mmol/L Potassium (3.5-5.1) mmol/L Chloride (98-107) mmol/L Carbon Dioxide (22-30) mmol/L Anion Gap mmol/L BUN (7-17) mg/dL Creatinine (0.52-1.04) mg/dL Est GFR (MDRD) Af Amer (>60 ml/min/1.73 sqM) Est GFR (MDRD) Non-Af (>60 ml/min/1.73 sqM) Glucose (74-99) mg/dL Calcium (8.4-10.2) mg/dL Total Bilirubin (0.2-1.3) mg/dL AST (14-36) U/L ALT (9-52) U/L Alkaline Phosphatase (38-126) U/L Total Creatine Kinase (30-135) U/L CK-MB (CK-2) (0.0-2.4) ng/mL CK-MB (CK-2) Rel Index Troponin I (0.000-0.034) ng/mL NT-Pro-B Natriuret Pep 57 pg/mL Total Protein (6.3-8.2) g/dL Albumin (3.5-5.0) g/dL Disposition Clinical Impression: Chest pain, Acute exacerbation of chronic obstructive airways disease, Diabetes , Morbid obesity, Hypoxia, High risk for readmission, Hypochloremia, Dyspnea, Atelectasis Disposition: ADMITTED IP TO THIS HOSP Condition: Fair Referrals: Herrera Dimas DO [Primary Care Provider] - 1-2 days Time of Disposition: 21:15 Decision Date: 09/22/16 Decision Time: 21:15
--- NOTE | 2016-09-22 20:00 | XR ---
EXAMINATION TYPE: XR chest 2V DATE OF EXAM: 09/22/2016 7:55 PM COMPARISON: 08/24/2016 HISTORY: Congestion TECHNIQUE: Frontal and lateral views of the chest are obtained. FINDINGS: There is some patchy linear density at the lung bases consistent with subsegmental atelect asis. There is no heart failure. Heart size is normal. There are no hilar masses. There is no pleural effusion. IMPRESSION: Mild subsegmental atelectasis at the lung bases is the same or increased compared to las t exam. No heart failure.
[2016-09-22 20:01] LABS: ALT 44 U/L (9-52); AST 17 U/L (14-36); Alkaline Phosphatase 77 U/L (38-126); Anion Gap 11 mmol/L; Blood Urea Nitrogen 24 mg/dL (7-17); Calcium 9.2 mg/dL (8.4-10.2); Carbon Dioxide 38 mmol/L (22-30); Chloride 93 mmol/L (98-107); Glucose 309 mg/dL (74-99); Non-African American GFR(MDRD) >60 (>60 ml/min/1.73 sqM); Potassium 3.8 mmol/L (3.5-5.1); Sodium 142 mmol/L (137-145); Total Bilirubin 0.4 mg/dL (0.2-1.3); Total Protein 6.3 g/dL (6.3-8.2)
[2016-09-22 20:25] LABS: INR 0.9 (<1.1); Prothrombin Time 9.5 sec (9.0-12.0)
[2016-09-22 20:40] LABS: Creatine Kinase 56 U/L (30-135)
[2016-09-22 20:52] LABS: Creatine Kinase MB 0.7 ng/mL (0.0-2.4); Troponin I <0.012 ng/mL (0.000-0.034)
[2016-09-22] MEDS ORDERED: IPRATROPIUM-ALBUTEROL 3 ML NEB INHALATION PRN (21:16)
[2016-09-22] MEDS ORDERED: NITROGLYCERIN SL TABS 0.4 MG TAB SUBLINGUAL PRN (21:25)
[2016-09-22] MEDS ORDERED: LORATADINE 10 MG TAB PO PRN (21:27)
[2016-09-22 23:09] LABS: Glucose,Whole Blood 252 mg/dL (75-99)
[2016-09-22] MEDS: ENOXAPARIN 40 MG/0.4 ML SYRINGE SQ SCH (23:16)
[2016-09-22] MEDS: methylPREDNISolone SOD SUCCI 125 MG/2 ML VIAL IV SCH (23:17)
[2016-09-22] MEDS: DOXYCYCLINE 50 MG CAP PO SCH (23:17)
[2016-09-23] MEDS: traMADol 50 MG TAB PO PRN ×3 (00:35→22:49)
[2016-09-23 01:41] LABS: Creatine Kinase 66 U/L (30-135)
[2016-09-23 01:54] LABS: Troponin I <0.012 ng/mL (0.000-0.034)
[2016-09-23 02:00] LABS: Creatine Kinase MB 0.7 ng/mL (0.0-2.4)
[2016-09-23 06:48] LABS: Glucose,Whole Blood 392 mg/dL (75-99)
[2016-09-23] MEDS: INSULIN LISPRO (humaLOG) 300 UNIT/3 ML VIAL SQ SCH ×4 (06:48→21:58)
[2016-09-23] MEDS: metFORMIN 500 MG TAB PO SCH ×2 (06:48→17:16)
[2016-09-23 07:32] LABS: Cholesterol 200 mg/dL (<200); HDL Cholesterol 60 mg/dL (40-60); Triglycerides 178 mg/dL (<150)
[2016-09-23 07:38] LABS: Creatine Kinase 56 U/L (30-135)
[2016-09-23 07:50] LABS: Hemoglobin A1C 9.6 % (4.2-6.1)
[2016-09-23 07:52] LABS: Creatine Kinase MB 0.7 ng/mL (0.0-2.4); Troponin I <0.012 ng/mL (0.000-0.034)
[2016-09-23] MEDS: IPRATROPIUM-ALBUTEROL 3 ML NEB INHALATION SCH ×3 (08:52→20:28)
[2016-09-23] MEDS: BUDESONIDE 0.5 MG/2 ML NEBU INHALATION SCH ×2 (08:52→20:28)
--- NOTE | 2016-09-23 09:33 | CONS ---
DATE OF CONSULTATION: Vish is a 51-year-old lady with severe COPD, who comes to hospital primarily with symptoms of COPD exacerbation. She comes in complaining of chest congestion, shortness of breath. She has mild to moderate shortness of breath that is at rest, gets worse with activity. She also has cough and productive sputum. She complains of intermittent episodes of left-sided chest discomfort that gets worse with movements and deep breathing and cough. She has known history of COPD, [id number] diabetes, hypertension, and dyslipidemia. Patient states that she has been admitted to hospital in the past and was evaluated by Cardiology and was told that she does not have any cardiac problems. She was actually in the hospital back in July, then her LV function was normal. She had CT again back in July that was negative. Her EKGs have always showed early repolarization changes giving the impression of inferior wall CA, but EKG looks the same all along. She has had 3 sets of cardiac enzymes on this admission that are unremarkable. Past medical history is significant for COPD, diabetes, hypertension, dyslipidemia. ALLERGIES: No known drug allergies. Medications include prednisone, Pepcid, albuterol, simvastatin, Lyrica, potassium, Singulair, Lopressor, Zestril, DuoNeb, insulin, Neurontin, metformin, iron. Family history is negative for premature coronary artery disease. SOCIAL HISTORY: Negative for current smoking, EtOH abuse, or drug abuse. REVIEW OF SYSTEMS: HEENT is unremarkable. CARDIAC: As described above. RESPIRATORY: As described above. GI: Negative. GENITOURINARY: Negative. ALLERGY/IMMUNOLOGY: Negative. SKIN: Negative. MUSCULOSKELETAL: Significant for arthritis. PSYCHOSOCIAL: Negative. ENDOCRINE: Negative. DERM: Negative. CONSTITUTIONAL: Negative. The rest of the system review is not relevant. On exam, patient is comfortable at rest. Afebrile. Vital signs are stable. Chest exam reveals diminished air entry with bilateral rhonchi. Heart exam reveals first and second heart sounds. No gallop. No murmur. Abdomen IS soft, nontender. Exam of the extremities reveals 1+ edema. Peripheral pulses are felt. Labs show a hemoglobin of 12.6, platelet count is 230, 3 sets of cardiac enzymes are negative. Creatinine is 0.7. EKG is abnormal as described above and very similar to have a prior EKGs. Echocardiogram was done at last admission just less 2 months ago that was unremarkable. ASSESSMENT: 1. Chest pain, atypical, noncardiac, probably musculoskeletal. 2. Chronic obstructive pulmonary disease exacerbation. 3. Hypertension. 4. Insulin-requiring diabetes. 5. Morbid obesity. PLAN: Will let the patient continue with her current medical therapy for COPD exacerbation. When her lungs are stable, we may consider doing a stress test on her. This can be done as outpatient. She needs aggressive risk factor modification and particular to lose weight, watch her diet and exercise regularly.
[2016-09-23] MEDS: ENOXAPARIN 40 MG/0.4 ML SYRINGE SQ SCH (09:57)
[2016-09-23] MEDS: methylPREDNISolone SOD SUCCI 125 MG/2 ML VIAL IV SCH (09:57)
[2016-09-23] MEDS: FUROSEMIDE 40 MG TAB PO SCH (09:58)
[2016-09-23] MEDS: PREGABALIN 100 MG CAP PO SCH ×2 (09:58→22:50)
[2016-09-23] MEDS: DOXYCYCLINE 50 MG CAP PO SCH ×2 (09:58→21:22)
[2016-09-23] MEDS: POTASSIUM CHLORIDE ER 20 MEQ TAB.ER PO SCH ×2 (09:58→21:58)
[2016-09-23] MEDS: GABAPENTIN 300 MG CAP PO SCH ×2 (09:59→21:22)
[2016-09-23] MEDS: INSULIN GLARGINE 100 UNIT/ML 10 ML VIAL SQ SCH (10:13)
[2016-09-23] MEDS: ASPIRIN 325 MG TAB PO SCH (10:43)
[2016-09-23] MEDS: METOPROLOL TARTRATE 12.5 MG TAB PO SCH (10:43)
[2016-09-23] MEDS: FAMOTIDINE 20 MG TAB PO SCH (10:43)
[2016-09-23] MEDS: ALLOPURINOL 100 MG TAB PO SCH (10:44)
[2016-09-23] MEDS: FERROUS SULFATE 325 MG TAB PO SCH (10:44)
[2016-09-23] MEDS: LISINOPRIL 5 MG TAB PO SCH (10:44)
[2016-09-23 11:55] LABS: Glucose,Whole Blood 396 mg/dL (75-99)
[2016-09-23 11:55] LABS: Glucose,Whole Blood 427 mg/dL (75-99)
[2016-09-23 11:55] LABS: Glucose,Whole Blood 379 mg/dL (75-99)
[2016-09-23 11:58] VITALS: BMI 52.7
--- NOTE | 2016-09-23 14:36 | P.CNPUL ---
History of Present Illness Consult date: 09/23/16 Reason for consult: dyspnea, cough, chest pain Chief complaint: Chest pain and shortness of breath History of present illness: This is a 51-year-old female who is well known to our practice. She states that she came to emergency department for shortness of breath and chest pain. She states that normally she doesn't really have chest pain and this was new for her. She is complaining of cough productive of white phlegm. She denies fevers and chills. She has not followed up to get her outpatient sleep study. She states she is concerned that it is the home that she is living and that is causing her breathing issues. She states she was in a home with a friend and the friend smokes and has dogs. Review of Systems All systems: negative Past Medical History Past Medical History: Asthma, Chest Pain / Angina, Heart Failure, COPD, Diabetes Mellitus, Hyperlipidemia, Hypertension, Neurologic Disorder, Osteoarthritis (OA), Pneumonia, Respiratory Disorder, Sleep Apnea/CPAP/BIPAP, Syncope, Thyroid Disorder Additional Past Medical History / Comment(s): GOUT, NEUROPATHY-FEET, sleep apnea but won't wear cpap, has home 02 4 liters n/c atc, past resp failure, hypothyroid,,lt lower lobe nodule-radiation therapy(,unsuccesful bx) History of Any Multi-Drug Resistant Organisms: None Reported Past Surgical History: Section Additional Past Surgical History / Comment(s): LT CARPAL TUNNEL, 3 unsuccessful attempts at lt lobe bx Past Anesthesia/Blood Transfusion Reactions: No Reported Reaction Additional Past Anesthesia/Blood Transfusion Reaction / Comment(s): CLAUSTERPHOBIA Past Psychological History: No Psychological Hx Reported Additional Psychological History / Comment(s): PT LIVES AT HOME WITH A FRIEND, CURRENTLY RECIEVING HOME CARE SERVICES THRU [facility] NURSE AND PT WEEKLY. Smoking Status: Former smoker Past Alcohol Use History: None Reported Additional Past Alcohol Use History / Comment(s): STARTED SMOKING 1975-STOPPED 2007 Past Drug Use History: None Reported - Past Family History Father Family Medical History: COPD, Diabetes Mellitus Mother History Unknown: Yes Family Medical History: No Reported History Additional Family Medical History / Comment(s): AT AGE 43 FROM SUICIDE Medications and Allergies Home Medications Medication Instructions Recorded Confirmed Type Famotidine [Pepcid] 20 mg PO DAILY 08/19/14 09/22/16 History Loratadine 10 mg PO DAILY PRN 08/19/14 09/22/16 History Ferrous Sulfate [Iron (65 MG 325 mg PO DAILY 08/20/14 09/22/16 History Elemental)] Nitroglycerin Sl Tabs [Nitrostat] 0.4 mg SUBLINGUAL Q5M PRN 08/20/14 09/22/16 History metFORMIN HCL 1,000 mg PO AC-BID 08/20/14 09/22/16 History Albuterol Nebulized [Ventolin 3 ml INHALATION RT-TID 03/13/15 09/22/16 History Nebulized] Lisinopril [Zestril] 5 mg PO DAILY 03/13/15 09/22/16 History Gabapentin [Neurontin] 300 mg PO BID 03/15/16 09/22/16 History Simvastatin [Zocor] 40 mg PO HS 03/15/16 09/22/16 History Febuxostat [Uloric] 80 mg PO DAILY 05/04/16 09/22/16 History Umeclidinium Brm/Vilanterol Tr 1 puff INHALATION RT-DAILY 05/04/16 09/22/16 History [Anoro Ellipta 62.5-25 Mcg INH] Furosemide [Lasix] 80 mg PO BID@0900,1600 06/08/16 09/22/16 History Insulin Glargine [Lantus] 120 unit SQ DAILY@0900 06/08/16 09/22/16 History Pregabalin [Lyrica] 100 mg PO BID 06/08/16 09/22/16 History Metoprolol Tartrate [Lopressor] 12.5 mg PO DAILY 07/18/16 09/22/16 History Montelukast [Singulair] 10 mg PO HS 07/18/16 09/22/16 History Albuterol Inhaler [Ventolin Hfa 1 - 2 puff INHALATION RT-Q6H PRN 08/24/16 History Inhaler] predniSONE See Taper PO DAILY 09/22/16 09/23/16 History Allergies Allergy/AdvReac Type Severity Reaction Status Date / Time No Known Allergies Allergy Verified 09/22/16 20:23 Physical Exam Osteopathic Statement: *. No significant issues noted on an osteopathic structural exam other than those noted in the History and Physical/Consult. Vitals: Vital Signs Temp Pulse Pulse Resp BP BP Pulse Ox 09/23/16 13:54 102 H 09/23/16 13:43 104 H 09/23/16 11:06 97.3 F L 100 18 123/67 92 L 09/23/16 09:14 108 H 09/23/16 08:54 102 H 09/23/16 07:45 97.7 F 95 18 125/67 92 L 09/23/16 04:00 97.0 F L 95 18 125/68 92 L 09/23/16 00:00 97.3 F L 88 18 107/57 92 L 09/22/16 23:22 97.3 F L 88 18 107/57 92 L 09/22/16 22:36 98.1 F 91 20 103/59 91 L 09/22/16 21:51 80 20 103/55 92 L Intake and Output 09/22/16 09/23/16 09/23/16 22:59 06:59 14:59 Intake Total 10 40 Balance 10 40 Intake: IV 10 0.9 10 Oral 40 Other: # Voids 1 1 Weight 162.1 kg 162.1 kg Patient Weight 09/24/16 06:59 Weight 162.1 kg General: Alert and oriented 3, no acute distress, morbidly obese Cardiovascular: Regular rate and rhythm, S1/S2 Lungs: Diminished breath sounds bilaterally Abdomen: Soft nontender nondistended positive bowel sounds Extremities: 2+ pitting edema Results - Laboratory Findings CBC and BMP: 09/22/16 19:20 09/22/16 19:20 PT/INR, D-dimer PT 9.5 sec (9.0-12.0) 09/22/16 19:20 INR 0.9 (<1.1) 09/22/16 19:20 Abnormal lab findings: Abnormal Labs 09/22/16 09/23/16 09/23/16 23:07 06:45 06:54 POC Glucose (mg/dL) 252 H 392 H Triglycerides 178 H Cholesterol 200 H LDL Cholesterol, Calc 104 H 09/23/16 09/23/16 09/23/16 11:40 11:42 11:43 POC Glucose (mg/dL) 427 H 396 H 379 H Triglycerides Cholesterol LDL Cholesterol, Calc - Diagnostic Findings Chest x-ray: report reviewed, image reviewed Assessment and Plan Plan: Acute on chronic hypoxic respiratory failure Acute exacerbation of COPD and asthma Hypercarbia Tracheobronchitis Pulmonary hypertension with cor pulmonale Morbid obesity, highly suspect obstructive sleep apnea/obesity hypoventilation syndrome Mild to moderate pulmonary hypertension, RVSP 42 mmHg Lung nodule which is PET positive consistent with cancer, patient undergoing radiation therapy next line diabetes mellitus type 2 uncontrolled next line dyslipidemia Hypertension Hypothyroidism Medical noncompliance O2 to maintain saturation greater than equal to 88% Bronchodilators and Pulmicort Diuresis Singulair Check IgE/RAST/HP panel Sputum culture Antibiotics: Doxycycline Patient is highly encouraged to proceed with outpatient PSG and subsequent titration study Blood sugar control Steroid taper Incentive spirometry and pulmonary hygiene Recommend pulmonary rehab however the patient has declined in the past GI and DVT prophylaxis: Pepcid, Lovenox
--- NOTE | 2016-09-23 16:20 | HP ---
DATE OF ADMISSION: Patient is a 51-year-old who is known to me from her previous hospitalizations. Patient this time comes in with complaints of shortness of breath, congestion and cough with yellowish sputum production. Patient was also complaining of chest pain which appears to be musculoskeletal in nature without any diaphoresis, without any radiation of the pain, and patient's chest pain is mostly reproducible in nature. Patient was evaluated by Cardiology, and they believe it is musculoskeletal pain. Patient has extensive pulmonary history; uses 4 liters of oxygen at home. Patient is at present on 4 liters as well. Patient was started on systemic steroids, inhalational treatments. Patient was started on levofloxacin; I changed it to doxycycline, as I do not see any evidence of pneumonia at this point of time. Pulmonary was consulted. REVIEW OF SYSTEMS: CONSTITUTIONAL: No fever, no malaise, no fatigue. HEENT: No recent visual problems or hearing problems. Denied any sore throat. CARDIOVASCULAR: As described in HPI. PULMONARY: As described in HPI. GASTROINTESTINAL: No diarrhea, no nausea, no vomiting, no abdominal pain. Normoactive bowel sounds. NEUROLOGICAL: No headaches, no weakness, no numbness. HEMATOLOGICAL: Denies any bleeding or petechiae. GENITOURINARY: Denies any burning micturition, frequency, or urgency. MUSCULOSKELETAL/RHEUMATOLOGICAL: Denies any joint pain, swelling, or any muscle pain. ENDOCRINE: Denies any polyuria or polydipsia. The rest of the 14 point review of systems is negative. Home medications include: 1. Famotidine. 2. Loratadine. 3. Ferrous sulfate. 4. Nitroglycerin. 5. Metformin. 6. Albuterol. 7. Lisinopril. 8. Gabapentin. 9. Simvastatin. 10. Uloric. 11. Anoro Ellipta. 12. Lasix 80 mg p.o. b.i.d. 13. Glargine; Lantus 20 units subcutaneously daily. 14. Lyrica. 15. Metoprolol. 16. Montelukast. 17. Albuterol inhaler. 18. Prednisone. 19. Potassium supplementation. 20. Ipratropium albuterol. 21. Tramadol. ALLERGIES: NO KNOWN DRUG ALLERGIES. Past medical history is significant for: 1. Asthma. 2. COPD. 3. Congestive heart failure; chronic diastolic dysfunction. 4. Diabetes mellitus. 5. Restrictive lung disease. 6. Obstructive sleep apnea. 7. Moderate pulmonary hypertension. 8. Carpal tunnel syndrome. 9. Osteoarthritis. 10. Hypertension. 11. Claustrophobia. FAMILY HISTORY: Father had COPD. Mother has no significant reported history. SOCIAL HISTORY: Quit smoking in 2007. Denied any alcohol abuse or any drug abuse. PHYSICAL EXAMINATION: VITAL SIGNS: Temperature 97.3, pulse of 102, respiratory rate of 18. Blood pressure is 123/67. Saturating at 92% on 4 L of oxygen by nasal cannula. GENERAL: Morbidly obese female. Alert and oriented x3. HEENT: Patient appears to have nasal congestion. CARDIOVASCULAR: S1 and S2 present. No murmurs, rubs, or gallops. PULMONARY: I can barely hear any air entry into bilateral lung garibay. No wheezing was appreciated. No crackles were appreciated. ABDOMEN: Soft, nontender, nondistended, normoactive bowel sounds. No palpable organomegaly. MUSCULOSKELETAL: No joint swelling or deformity. EXTREMITIES: No cyanosis, clubbing, or pedal edema. NEUROLOGICAL: Gross neurological examination did not reveal any focal deficits. SKIN: No rashes. LABORATORY DATA: CBC, CMP are abnormal for elevated glucose of 309, hemoglobin A1c of 9.6. LDL is 109. ASSESSMENT AND PLAN: 1. Acute on chronic hypercapnic respiratory failure. Patient will be started on systemic steroids and inhalational treatments again. Patient is on doxycycline for tracheobronchitis. 2. Moderate pulmonary hypertension. 3. Right-sided heart failure. 4. Morbid obesity. 5. Sleep apnea. 6. Pedal edema secondary mostly to right-sided heart failure. I am not sure whether patient actually has diastolic dysfunction ( ). 7. Elevated bicarbonate due to carbon dioxide retention. 8. Diabetes mellitus. 9. Hyperlipidemia. 10. Hypertension. 11. Osteoarthritis. 12. Elevated blood sugars due to systemic steroids. 13. Obesity hypoventilation syndrome. PLAN: Continue with systemic treatments, inhalational treatments. Use sliding scale for insulin.
[2016-09-23 16:47] LABS: Glucose,Whole Blood 290 mg/dL (75-99)
[2016-09-23] MEDS: FUROSEMIDE 80 MG TAB PO SCH (16:50)
[2016-09-23] MEDS: BENZOCAINE/MENTHOL LOZENG 1 EACH LOZENGE MUCOUS MEM PRN (21:20)
[2016-09-23] MEDS: methylPREDNISolone SOD SUCCI 40 MG/ML 1 ML VIAL IV SCH (21:21)
[2016-09-23] MEDS: MONTELUKAST 10 MG TAB PO SCH (21:22)
[2016-09-23] MEDS: ATORVASTATIN 20 MG TAB PO SCH (21:22)
[2016-09-23 21:46] LABS: Glucose,Whole Blood 251 mg/dL (75-99)
[2016-09-24] MEDS: methylPREDNISolone SOD SUCCI 125 MG/2 ML VIAL IV SCH (00:12)
[2016-09-24] MEDS: FUROSEMIDE 40 MG TAB PO SCH (00:12)
[2016-09-24] MEDS: IPRATROPIUM-ALBUTEROL 3 ML NEB INHALATION SCH ×5 (05:11→20:49)
[2016-09-24 07:17] LABS: CH 29.6; CHCM 31.2; HCT 38.1 % (34.0-46.0); HDW 2.44; HGB 11.9 gm/dL (11.4-16.0); Hypochromasia Slight; MCH 29.8 pg (25.0-35.0); MCHC 31.3 g/dL (31.0-37.0); MCV 95.1 fL (80.0-100.0); Mean Platelet Volume 7.3; RBC 4.01 m/uL (3.80-5.40); RDW 12.8 % (11.5-15.5); WBC 6.4 k/uL (3.8-10.6)
[2016-09-24 07:19] LABS: Glucose,Whole Blood 339 mg/dL (75-99)
[2016-09-24 07:30] LABS: Anion Gap 9 mmol/L; Blood Urea Nitrogen 27 mg/dL (7-17); Calcium 9.2 mg/dL (8.4-10.2); Carbon Dioxide 36 mmol/L (22-30); Chloride 93 mmol/L (98-107); Glucose 364 mg/dL (74-99); Non-African American GFR(MDRD) >60 (>60 ml/min/1.73 sqM); Potassium 4.8 mmol/L (3.5-5.1); Sodium 138 mmol/L (137-145)
[2016-09-24] MEDS: BUDESONIDE 0.5 MG/2 ML NEBU INHALATION SCH ×2 (08:33→20:45)
[2016-09-24] MEDS: ASPIRIN 325 MG TAB PO SCH (09:09)
[2016-09-24] MEDS: METOPROLOL TARTRATE 12.5 MG TAB PO SCH (09:09)
[2016-09-24] MEDS: FAMOTIDINE 20 MG TAB PO SCH (09:09)
[2016-09-24] MEDS: FUROSEMIDE 80 MG TAB PO SCH ×2 (09:09→17:00)
[2016-09-24] MEDS: DOXYCYCLINE 50 MG CAP PO SCH ×2 (09:09→19:46)
[2016-09-24] MEDS: metFORMIN 500 MG TAB PO SCH ×2 (09:09→17:00)
[2016-09-24] MEDS: methylPREDNISolone SOD SUCCI 40 MG/ML 1 ML VIAL IV SCH ×2 (09:09→19:46)
[2016-09-24] MEDS: FERROUS SULFATE 325 MG TAB PO SCH (09:09)
[2016-09-24] MEDS: ALLOPURINOL 100 MG TAB PO SCH (09:09)
[2016-09-24] MEDS: GABAPENTIN 300 MG CAP PO SCH ×2 (09:10→19:46)
[2016-09-24] MEDS: POTASSIUM CHLORIDE ER 20 MEQ TAB.ER PO SCH ×2 (09:10→19:46)
[2016-09-24] MEDS: ENOXAPARIN 40 MG/0.4 ML SYRINGE SQ SCH (09:10)
[2016-09-24] MEDS: INSULIN LISPRO (humaLOG) 300 UNIT/3 ML VIAL SQ SCH ×5 (09:10→19:47)
[2016-09-24] MEDS: PREGABALIN 100 MG CAP PO SCH ×2 (09:10→19:46)
[2016-09-24] MEDS: LISINOPRIL 5 MG TAB PO SCH (09:11)
[2016-09-24] MEDS: INSULIN GLARGINE 100 UNIT/ML 10 ML VIAL SQ SCH (09:25)
[2016-09-24] MEDS: BUTA/APAP/CAF/COD 50-325-40-30 CAP PO PRN (09:31)
[2016-09-24 10:36] LABS: Alternaria alternata IgE <0.35 kU/L (<0.35); Cat Epith & Dander IgE <0.35 kU/L (<0.35); Cat Epith & Dander IgE Class CLASS 0; Common Ragweed IgE Class CLASS 0; Dermato. farinae IgE <0.35 kU/L (<0.35); Dermato. farinae IgE Class CLASS 0; English Plantain IgE Class CLASS 0; Meadow Grs (KY blue) IgE <0.35 kU/L (<0.35); Meadow Grs (KY blue) IgE Class CLASS 0; Oak IgE <0.35 kU/L (<0.35)
[2016-09-24 12:27] LABS: Glucose,Whole Blood 322 mg/dL (75-99)
--- NOTE | 2016-09-24 14:53 | P.PN ---
Subjective Principal diagnosis: AE Asthma/COPD Patient seen and examined. Patient states her breathing is slightly better today. She is still short of breath and coughing. Objective - Vital Signs Vital signs: Vital Signs Temp 97.7 F 09/24/16 07:00 Pulse 92 09/24/16 14:02 Resp 15 09/24/16 07:00 BP 136/73 09/24/16 07:00 Pulse Ox 95 09/24/16 07:00 Intake & Output 09/23/16 09/24/16 09/24/16 18:59 06:59 18:59 Intake Total 540 Balance 540 Weight 162.1 kg 162.5 kg Intake: Oral 540 Other: Voiding Method Toilet Toilet # Voids 1 1 - Exam General: Alert and oriented 3, no acute distress, morbidly obese Cardiovascular: Regular rate and rhythm, S1/S2 Lungs: Diminished breath sounds bilaterally Abdomen: Soft nontender nondistended positive bowel sounds Extremities: 2+ pitting edema - Labs CBC & Chem 7: 09/24/16 06:42 09/24/16 06:42 Labs: Abnormal Lab Results - Last 24 Hours (Table) 09/23/16 09/23/16 09/24/16 Range/Units 16:46 21:44 06:42 Chloride 93 L (98-107) mmol/L Carbon Dioxide 36 H (22-30) mmol/L BUN 27 H (7-17) mg/dL Glucose 364 H (74-99) mg/dL POC Glucose (mg/dL) 290 H 251 H (75-99) mg/dL 09/24/16 09/24/16 Range/Units 07:15 12:11 Chloride (98-107) mmol/L Carbon Dioxide (22-30) mmol/L BUN (7-17) mg/dL Glucose (74-99) mg/dL POC Glucose (mg/dL) 339 H 322 H (75-99) mg/dL Assessment and Plan Plan: Acute on chronic hypoxic respiratory failure Acute exacerbation of COPD and asthma Hypercarbia Tracheobronchitis Pulmonary hypertension with cor pulmonale Morbid obesity, highly suspect obstructive sleep apnea/obesity hypoventilation syndrome Mild to moderate pulmonary hypertension, RVSP 42 mmHg Lung nodule which is PET positive consistent with cancer, patient undergoing radiation therapy next line diabetes mellitus type 2 uncontrolled next line dyslipidemia Hypertension Hypothyroidism Medical noncompliance O2 to maintain saturation greater than equal to 88% Bronchodilators and Pulmicort Diuresis Singulair Check IgE/RAST/HP panel Sputum culture Antibiotics: Doxycycline Patient is highly encouraged to proceed with outpatient PSG and subsequent titration study Blood sugar control Steroid taper Incentive spirometry and pulmonary hygiene Recommend pulmonary rehab however the patient has declined in the past GI and DVT prophylaxis: Pepcid, Lovenox
[2016-09-24 18:05] LABS: Glucose,Whole Blood 348 mg/dL (75-99)
--- NOTE | 2016-09-24 19:23 | PN ---
Patient is a 51-year-old with multiple previous hospitalizations came in with complaints of shortness of breath, being treated for COPD at this point of time. Patient's respiratory status did improve. REVIEW OF SYSTEMS: CARDIOVASCULAR: No chest pain, no orthopnea, no PND, no palpitations. PULMONARY: As mentioned above. GASTROINTESTINAL: No diarrhea, nausea or vomiting. No abdominal pain. Normoactive bowel sounds. NEUROLOGIC: No headaches, no weakness, no numbness. Medications were reviewed. PHYSICAL EXAMINATION: VITAL SIGNS: Temperature 98, pulse 92, respiratory rate of 16, blood pressure is 114/71, saturating at 93% on 4-L of O2 nasal cannula. Patient does use 4 liters at home. PHYSICAL EXAMINATION: GENERAL: The patient is alert and oriented x3, not in any acute distress. Well developed, well nourished. HEENT: Pupils are round and equally reacting to light. EOMI. No scleral icterus. No conjunctival pallor. Normocephalic, atraumatic. No pharyngeal erythema. No thyromegaly. CARDIOVASCULAR: S1 and S2 present. No murmurs, rubs, or gallops. PULMONARY: Minimally improved air entry into bilateral lung garibay. No wheezing was appreciated. No crackles are appreciated. ABDOMEN: Soft, nontender, nondistended, normoactive bowel sounds. No palpable organomegaly. MUSCULOSKELETAL: No joint swelling or deformity. EXTREMITIES: No cyanosis, clubbing, or pedal edema. NEUROLOGICAL: Gross neurological examination did not reveal any focal deficits. SKIN: No rashes. LABORATORY DATA: No significant abnormality on CBC and basic metabolic profile. ASSESSMENT AND PLAN: 1. Acute on chronic hypercapnic respiratory failure secondary to chronic obstructive pulmonary disease exacerbation as well as restrictive lung disease. 2. Obstructive sleep apnea. 3. Tracheobronchitis. 4. Moderate pulmonary hypertension. 5. Right-sided heart failure. 6. Chronic venostasis. 7. Morbid obesity. 8. Obesity hypoventilation syndrome. 9. Type 2 diabetes mellitus. 10. Hyperlipidemia. 11. Hypertension. 12. Osteoarthritis. 13. Elevated blood sugars due to systemic steroids. I started her on premeal insulin at 18 units. PLAN: Continue with systemic steroids and inhalational treatments. Up-titrating insulin, change insulin regimen as mentioned above. Continue with diuretic therapy. Continue with respiratory support. Continue to follow.
[2016-09-24] MEDS: ATORVASTATIN 20 MG TAB PO SCH (19:46)
[2016-09-24] MEDS: MONTELUKAST 10 MG TAB PO SCH (19:46)
[2016-09-24 20:06] LABS: Glucose,Whole Blood 324 mg/dL (75-99)
[2016-09-24] MEDS: traMADol 50 MG TAB PO PRN (21:53)
[2016-09-25] MEDS: BENZOCAINE/MENTHOL LOZENG 1 EACH LOZENGE MUCOUS MEM PRN (00:10)
[2016-09-25 07:28] LABS: Glucose,Whole Blood 295 mg/dL (75-99)
[2016-09-25] MEDS: IPRATROPIUM-ALBUTEROL 3 ML NEB INHALATION SCH ×4 (07:50→22:02)
[2016-09-25] MEDS: BUDESONIDE 0.5 MG/2 ML NEBU INHALATION SCH ×2 (07:50→22:02)
[2016-09-25] MEDS: INSULIN LISPRO (humaLOG) 300 UNIT/3 ML VIAL SQ SCH ×7 (08:52→21:14)
[2016-09-25] MEDS: metFORMIN 500 MG TAB PO SCH ×2 (08:56→17:44)
[2016-09-25] MEDS: traMADol 50 MG TAB PO PRN ×2 (08:58→21:44)
[2016-09-25] MEDS: ALLOPURINOL 100 MG TAB PO SCH (10:13)
[2016-09-25] MEDS: DOXYCYCLINE 50 MG CAP PO SCH ×2 (10:15→21:17)
[2016-09-25] MEDS: ENOXAPARIN 40 MG/0.4 ML SYRINGE SQ SCH (10:15)
[2016-09-25] MEDS: FAMOTIDINE 20 MG TAB PO SCH (10:15)
[2016-09-25] MEDS: ASPIRIN 325 MG TAB PO SCH (10:15)
[2016-09-25] MEDS: FERROUS SULFATE 325 MG TAB PO SCH (10:16)
[2016-09-25] MEDS: FUROSEMIDE 80 MG TAB PO SCH ×2 (10:16→15:29)
[2016-09-25] MEDS: GABAPENTIN 300 MG CAP PO SCH ×2 (10:17→21:17)
[2016-09-25] MEDS: methylPREDNISolone SOD SUCCI 40 MG/ML 1 ML VIAL IV SCH (10:17)
[2016-09-25] MEDS: LISINOPRIL 5 MG TAB PO SCH (10:17)
[2016-09-25] MEDS: POTASSIUM CHLORIDE ER 20 MEQ TAB.ER PO SCH ×2 (10:18→21:17)
[2016-09-25] MEDS: METOPROLOL TARTRATE 12.5 MG TAB PO SCH (10:18)
[2016-09-25] MEDS: PREGABALIN 100 MG CAP PO SCH ×2 (10:18→21:16)
[2016-09-25] MEDS: INSULIN GLARGINE 100 UNIT/ML 10 ML VIAL SQ SCH (10:40)
[2016-09-25 12:05] LABS: Glucose,Whole Blood 247 mg/dL (75-99)
--- NOTE | 2016-09-25 13:07 | P.PN ---
Subjective Principal diagnosis: Acute exacerbation of COPD Patient seen and examined. Patient states she is still not feeling well. She gets short of breath with exertion. She is complaining of cough. She denies fevers and chills. Objective - Vital Signs Vital signs: Vital Signs Temp 98.3 F 09/25/16 07:00 Pulse 104 H 09/25/16 12:16 Resp 18 09/25/16 07:00 BP 117/67 09/25/16 07:00 Pulse Ox 95 09/25/16 07:00 Intake & Output 09/24/16 09/25/16 09/25/16 18:59 06:59 18:59 Intake Total 600 1100 Balance 600 1100 Weight 163 kg Intake: Oral 600 1100 Other: Voiding Method Toilet Toilet # Voids 1 2 - Exam General: Alert and oriented 3, no acute distress, morbidly obese Cardiovascular: Regular rate and rhythm, S1/S2 Lungs: Diminished breath sounds bilaterally Abdomen: Soft nontender nondistended positive bowel sounds Extremities: 2+ pitting edema - Labs CBC & Chem 7: 09/24/16 06:42 09/24/16 06:42 Labs: Abnormal Lab Results - Last 24 Hours (Table) 09/24/16 09/24/16 09/25/16 Range/Units 17:56 19:44 06:57 POC Glucose (mg/dL) 348 H 324 H 295 H (75-99) mg/dL 09/25/16 Range/Units 12:03 POC Glucose (mg/dL) 247 H (75-99) mg/dL Microbiology - Last 24 Hours (Table) 09/24/16 20:45 Gram Stain - Preliminary Sputum Sputum Culture - Preliminary Assessment and Plan Plan: Acute on chronic hypoxic respiratory failure Acute exacerbation of COPD and asthma Hypercarbia Tracheobronchitis Pulmonary hypertension with cor pulmonale Morbid obesity, highly suspect obstructive sleep apnea/obesity hypoventilation syndrome Mild to moderate pulmonary hypertension, RVSP 42 mmHg Lung nodule which is PET positive consistent with cancer, patient undergoing radiation therapy next line diabetes mellitus type 2 uncontrolled next line dyslipidemia Hypertension Hypothyroidism Medical noncompliance O2 to maintain saturation greater than equal to 88% Bronchodilators and Pulmicort Will add Perforomist Diuresis Singulair Check IgE/RAST/HP panel Sputum culture Antibiotics: Doxycycline Patient is highly encouraged to proceed with outpatient PSG and subsequent titration study Blood sugar control Repeat chest x-ray today Steroid taper Incentive spirometry and pulmonary hygiene Recommend pulmonary rehab however the patient has declined in the past GI and DVT prophylaxis: Pepcid, Lovenox
--- NOTE | 2016-09-25 15:48 | XR ---
EXAMINATION TYPE: XR chest 2V DATE OF EXAM: 09/25/2016 3:41 PM COMPARISON: 09/22/2016 HISTORY: COPD and short of breath TECHNIQUE: Frontal and lateral views of the chest are obtained. FINDINGS: There is coarsening of interstitial markings in the mid and lower lung garibay. Heart size is normal. There are chest leads. There are no hilar masses. There is a poor inspiration. There is no gross heart failure. IMPRESSION: Coarse interstitial infiltrates in the lower lung garibay consistent with combined pulmon rafy fibrosis and atelectasis that is worse than last exam 3 days ago. No gross heart failure.
[2016-09-25 17:07] LABS: Glucose,Whole Blood 278 mg/dL (75-99)
[2016-09-25] MEDS: KETOTIFEN 0.025% OPHTH DROPS 5 ML BTL BOTH EYES SCH (17:45)
--- NOTE | 2016-09-25 20:50 | PN ---
The patient was admitted with shortness of breath and patient does have chronic obstructive pulmonary disease exacerbation. REVIEW OF SYSTEMS: CARDIOVASCULAR: No chest pain, no orthopnea, no PND, no palpitations. PULMONARY: As mentioned above. GASTROINTESTINAL: No diarrhea, nausea or vomiting. No abdominal pain. Normoactive bowel sounds. NEUROLOGIC: No headaches, no weakness, no numbness. Medications were reviewed. PHYSICAL EXAMINATION: VITAL SIGNS: Temperature 97.9, pulse 104, respiratory rate of 16, blood pressure is 101/52, saturating at 93% on 4-L of O2 nasal cannula. Patient does use 4 liters at home. PHYSICAL EXAMINATION: GENERAL: The patient is alert and oriented x3, not in any acute distress. Well developed, well nourished. HEENT: Pupils are round and equally reacting to light. EOMI. No scleral icterus. No conjunctival pallor. Normocephalic, atraumatic. No pharyngeal erythema. No thyromegaly. CARDIOVASCULAR: S1 and S2 present. No murmurs, rubs, or gallops. PULMONARY: Minimally improved air entry into bilateral lung garibay. No wheezing was appreciated. No crackles are appreciated. ABDOMEN: Soft, nontender, nondistended, normoactive bowel sounds. No palpable organomegaly. MUSCULOSKELETAL: No joint swelling or deformity. EXTREMITIES: No cyanosis, clubbing, or pedal edema. NEUROLOGICAL: Gross neurological examination did not reveal any focal deficits. SKIN: No rashes. LABORATORY DATA: Not available. ASSESSMENT AND PLAN: 1. Acute on chronic hypercapnic respiratory failure secondary to chronic obstructive pulmonary disease exacerbation as well as restrictive lung disease. 2. Obstructive sleep apnea. 3. Tracheobronchitis. 4. Moderate pulmonary hypertension. 5. Right-sided heart failure. 6. Chronic venostasis. 7. Morbid obesity. 8. Obesity hypoventilation syndrome. 9. Type 2 diabetes mellitus. 10. Hyperlipidemia. 11. Hypertension. 12. Osteoarthritis. 13. Elevated blood sugars due to systemic steroids. I started her on premeal insulin at 18 units. PLAN: Continue with systemic steroids and inhalational treatments. Up-titrating insulin, change insulin regimen as mentioned above. Continue with diuretic therapy. Continue with respiratory support. Continue to follow.
[2016-09-25 21:14] LABS: Glucose,Whole Blood 299 mg/dL (75-99)
[2016-09-25] MEDS: ATORVASTATIN 20 MG TAB PO SCH (21:16)
[2016-09-25] MEDS: TETRAHYDROZOLINE 0.05% OPHTH DROPS 15 ML BTL BOTH EYES SCH ×2 (21:16→21:18)
[2016-09-25] MEDS: MONTELUKAST 10 MG TAB PO SCH (21:17)
[2016-09-25] MEDS: FORMOTEROL FUMARATE 20 MCG/2 ML NEBU INHALATION SCH (22:02)
[2016-09-26 07:10] LABS: Glucose,Whole Blood 113 mg/dL (75-99)
[2016-09-26] MEDS: INSULIN LISPRO (humaLOG) 300 UNIT/3 ML VIAL SQ SCH ×7 (07:15→20:57)
[2016-09-26] MEDS: BUTA/APAP/CAF/COD 50-325-40-30 CAP PO PRN (07:19)
[2016-09-26] MEDS: ALLOPURINOL 100 MG TAB PO SCH (07:29)
[2016-09-26] MEDS: ASPIRIN 325 MG TAB PO SCH (07:30)
[2016-09-26] MEDS: metFORMIN 500 MG TAB PO SCH ×2 (07:30→17:28)
[2016-09-26] MEDS: DOXYCYCLINE 50 MG CAP PO SCH ×2 (07:30→21:01)
[2016-09-26] MEDS: ENOXAPARIN 40 MG/0.4 ML SYRINGE SQ SCH (07:31)
[2016-09-26] MEDS: TETRAHYDROZOLINE 0.05% OPHTH DROPS 15 ML BTL BOTH EYES SCH ×4 (07:32→21:00)
[2016-09-26] MEDS: PREGABALIN 100 MG CAP PO SCH ×2 (07:32→21:01)
[2016-09-26] MEDS: FUROSEMIDE 80 MG TAB PO SCH ×2 (07:33→15:09)
[2016-09-26] MEDS: FERROUS SULFATE 325 MG TAB PO SCH (07:33)
[2016-09-26] MEDS: GABAPENTIN 300 MG CAP PO SCH ×2 (07:33→21:01)
[2016-09-26] MEDS: POTASSIUM CHLORIDE ER 20 MEQ TAB.ER PO SCH ×2 (07:33→21:01)
[2016-09-26] MEDS: predniSONE 20 MG TAB PO SCH (07:34)
[2016-09-26] MEDS: LISINOPRIL 5 MG TAB PO SCH (07:34)
[2016-09-26] MEDS: METOPROLOL TARTRATE 12.5 MG TAB PO SCH (07:34)
[2016-09-26] MEDS: FAMOTIDINE 20 MG TAB PO SCH (07:40)
[2016-09-26] MEDS: KETOTIFEN 0.025% OPHTH DROPS 5 ML BTL BOTH EYES SCH ×2 (07:40→21:00)
[2016-09-26] MEDS: INSULIN GLARGINE 100 UNIT/ML 10 ML VIAL SQ SCH (07:41)
[2016-09-26] MEDS: BUDESONIDE 0.5 MG/2 ML NEBU INHALATION SCH ×2 (08:10→19:31)
[2016-09-26] MEDS: IPRATROPIUM-ALBUTEROL 3 ML NEB INHALATION SCH ×4 (08:10→19:31)
[2016-09-26] MEDS: FORMOTEROL FUMARATE 20 MCG/2 ML NEBU INHALATION SCH ×2 (08:10→19:31)
--- NOTE | 2016-09-26 11:58 | P.PN ---
Subjective Principal diagnosis: Acute exacerbation of COPD Patient seen and examined. Patient is planning to take shower today. Patient states her breathing is about the same. She does not feel like she is getting any better. She has had no fevers or chills. Objective - Vital Signs Vital signs: Vital Signs Temp 97 F L 09/26/16 07:00 Pulse 84 09/26/16 08:33 Resp 14 09/26/16 07:55 BP 119/65 09/26/16 07:00 Pulse Ox 93 L 09/26/16 07:00 Intake & Output 09/25/16 09/26/16 09/26/16 18:59 06:59 18:59 Intake Total 480 360 Balance 480 360 Weight 163 kg Intake: Oral 480 360 Other: Voiding Method Toilet Toilet # Voids 3 - Exam General: Alert and oriented 3, no acute distress, morbidly obese Cardiovascular: Regular rate and rhythm, S1/S2 Lungs: Diminished breath sounds bilaterally Abdomen: Soft nontender nondistended positive bowel sounds Extremities: 2+ pitting edema - Labs CBC & Chem 7: 09/24/16 06:42 09/24/16 06:42 Labs: Abnormal Lab Results - Last 24 Hours (Table) 09/25/16 09/25/16 09/25/16 Range/Units 12:03 17:01 21:12 POC Glucose (mg/dL) 247 H 278 H 299 H (75-99) mg/dL 09/26/16 Range/Units 07:06 POC Glucose (mg/dL) 113 H (75-99) mg/dL Microbiology - Last 24 Hours (Table) 09/24/16 20:45 Gram Stain - Preliminary Sputum Sputum Culture - Preliminary Assessment and Plan Plan: Acute on chronic hypoxic respiratory failure Acute exacerbation of COPD and asthma Hypercarbia Tracheobronchitis Pulmonary hypertension with cor pulmonale Morbid obesity, highly suspect obstructive sleep apnea/obesity hypoventilation syndrome Mild to moderate pulmonary hypertension, RVSP 42 mmHg Lung nodule which is PET positive consistent with cancer, patient undergoing radiation therapy next line diabetes mellitus type 2 uncontrolled next line dyslipidemia Hypertension Hypothyroidism Medical noncompliance O2 to maintain saturation greater than equal to 88% Bronchodilators and Pulmicort Continue Perforomist Diuresis Singulair Antibiotics: Doxycycline Patient is highly encouraged to proceed with outpatient PSG and subsequent titration study Blood sugar control Repeat chest x-ray today Steroid taper Incentive spirometry and pulmonary hygiene Recommend pulmonary rehab however the patient has declined in the past GI and DVT prophylaxis: Pepcid, Lovenox Continue PT and OT
[2016-09-26 12:17] LABS: Glucose,Whole Blood 166 mg/dL (75-99)
[2016-09-26 17:24] LABS: Glucose,Whole Blood 317 mg/dL (75-99)
--- NOTE | 2016-09-26 18:40 | PN ---
The patient was admitted with shortness of breath and patient does have chronic obstructive pulmonary disease exacerbation. REVIEW OF SYSTEMS: CARDIOVASCULAR: No chest pain, no orthopnea, no PND, no palpitations. PULMONARY: As mentioned above. GASTROINTESTINAL: No diarrhea, nausea or vomiting. No abdominal pain. Normoactive bowel sounds. NEUROLOGIC: No headaches, no weakness, no numbness. Medications were reviewed. PHYSICAL EXAMINATION: VITAL SIGNS: Temperature 98.4, pulse of 80, respiratory rate of 16, blood pressure is 101/66, saturating at 93% on room air. GENERAL: The patient is alert and oriented x3, not in any acute distress. Well developed, well nourished. HEENT: Pupils are round and equally reacting to light. EOMI. No scleral icterus. No conjunctival pallor. Normocephalic, atraumatic. No pharyngeal erythema. No thyromegaly. CARDIOVASCULAR: S1 and S2 present. No murmurs, rubs, or gallops. PULMONARY: Minimally improved air entry into bilateral lung garibay. No wheezing was appreciated. No crackles are appreciated. ABDOMEN: Soft, nontender, nondistended, normoactive bowel sounds. No palpable organomegaly. MUSCULOSKELETAL: No joint swelling or deformity. EXTREMITIES: No cyanosis, clubbing, or pedal edema. NEUROLOGICAL: Gross neurological examination did not reveal any focal deficits. SKIN: No rashes. LABORATORY DATA: None available. ASSESSMENT AND PLAN: 1. Acute on chronic hypercapnic respiratory failure secondary to chronic obstructive pulmonary disease exacerbation as well as restrictive lung disease. 2. Obstructive sleep apnea. 3. Tracheobronchitis. 4. Moderate pulmonary hypertension. 5. Right-sided heart failure. 6. Chronic venostasis. 7. Morbid obesity. 8. Obesity hypoventilation syndrome. 9. Type 2 diabetes mellitus. 10. Hyperlipidemia. 11. Hypertension. 12. Osteoarthritis. 13. Elevated blood sugars due to systemic steroids. I started her on premeal insulin at 18 units. PLAN: Continue with systemic steroids and inhalational treatments. Up-titrating insulin, change insulin regimen as mentioned above. Continue with diuretic therapy. Continue with respiratory support. Continue to follow. Patient probably will be discharged tomorrow.
[2016-09-26 20:16] LABS: Glucose,Whole Blood 360 mg/dL (75-99)
[2016-09-26] MEDS: ATORVASTATIN 20 MG TAB PO SCH (21:00)
[2016-09-26] MEDS: MONTELUKAST 10 MG TAB PO SCH (21:01)
[2016-09-26] MEDS: traMADol 50 MG TAB PO PRN (22:49)
[2016-09-27 07:06] LABS: Glucose,Whole Blood 109 mg/dL (75-99)
[2016-09-27 07:24] LABS: Glucose,Whole Blood 105 mg/dL (75-99)
[2016-09-27] MEDS: IPRATROPIUM-ALBUTEROL 3 ML NEB INHALATION SCH ×3 (07:39→15:17)
[2016-09-27] MEDS: BUDESONIDE 0.5 MG/2 ML NEBU INHALATION SCH (07:39)
[2016-09-27] MEDS: FORMOTEROL FUMARATE 20 MCG/2 ML NEBU INHALATION SCH (07:39)
[2016-09-27 07:51] LABS: CHCM 32.7; HCT 38.7 % (34.0-46.0); HDW 2.46; HGB 12.7 gm/dL (11.4-16.0); MCH 30.3 pg (25.0-35.0); MCHC 32.9 g/dL (31.0-37.0); MCV 92.2 fL (80.0-100.0); Mean Platelet Volume 8.2; RDW 13.4 % (11.5-15.5); WBC 7.5 k/uL (3.8-10.6)
[2016-09-27 08:22] LABS: Anion Gap 12 mmol/L; Blood Urea Nitrogen 35 mg/dL (7-17); Calcium 9.7 mg/dL (8.4-10.2); Carbon Dioxide 34 mmol/L (22-30); Chloride 96 mmol/L (98-107); Glucose 110 mg/dL (74-99); Non-African American GFR(MDRD) >60 (>60 ml/min/1.73 sqM); Potassium 4.3 mmol/L (3.5-5.1); Sodium 142 mmol/L (137-145)
[2016-09-27] MEDS: INSULIN GLARGINE 100 UNIT/ML 10 ML VIAL SQ SCH (08:27)
[2016-09-27] MEDS: INSULIN LISPRO (humaLOG) 300 UNIT/3 ML VIAL SQ SCH ×4 (08:28→12:45)
[2016-09-27] MEDS: ALLOPURINOL 100 MG TAB PO SCH (08:29)
[2016-09-27] MEDS: GABAPENTIN 300 MG CAP PO SCH (08:29)
[2016-09-27] MEDS: FAMOTIDINE 20 MG TAB PO SCH (08:29)
[2016-09-27] MEDS: PREGABALIN 100 MG CAP PO SCH (08:30)
[2016-09-27] MEDS: FUROSEMIDE 80 MG TAB PO SCH (08:30)
[2016-09-27] MEDS: DOXYCYCLINE 50 MG CAP PO SCH (08:30)
[2016-09-27] MEDS: metFORMIN 500 MG TAB PO SCH (08:30)
[2016-09-27] MEDS: METOPROLOL TARTRATE 12.5 MG TAB PO SCH (08:30)
[2016-09-27] MEDS: predniSONE 20 MG TAB PO SCH (08:30)
[2016-09-27] MEDS: LISINOPRIL 5 MG TAB PO SCH (08:30)
[2016-09-27] MEDS: TETRAHYDROZOLINE 0.05% OPHTH DROPS 15 ML BTL BOTH EYES SCH ×2 (08:31→12:28)
[2016-09-27] MEDS: FERROUS SULFATE 325 MG TAB PO SCH (08:31)
[2016-09-27] MEDS: ASPIRIN 325 MG TAB PO SCH (08:31)
[2016-09-27] MEDS: ENOXAPARIN 40 MG/0.4 ML SYRINGE SQ SCH (08:31)
[2016-09-27] MEDS: POTASSIUM CHLORIDE ER 20 MEQ TAB.ER PO SCH (08:31)
[2016-09-27] MEDS: BUTA/APAP/CAF/COD 50-325-40-30 CAP PO PRN (08:32)
[2016-09-27] MEDS: KETOTIFEN 0.025% OPHTH DROPS 5 ML BTL BOTH EYES SCH (08:32)
[2016-09-27 09:15] VITALS: BP 112/65; RESP 15; TEMP 98
[2016-09-27 11:47] LABS: Glucose,Whole Blood 153 mg/dL (75-99)
--- NOTE | 2016-09-27 12:27 | P.PN ---
Subjective Principal diagnosis: AECOPD Patient seen and examined. She states her breathing is a little better today. She is still coughing. NO fevers or chills. She feels a little light headed today, her BS this morning was 109. She states she is eating well and her appetite is good. Objective - Vital Signs Vital signs: Vital Signs Temp 98.0 F 09/27/16 07:00 Pulse 88 09/27/16 12:11 Resp 15 09/27/16 07:00 BP 112/65 09/27/16 07:00 Pulse Ox 94 L 09/27/16 07:00 Intake & Output 09/26/16 09/27/16 09/27/16 18:59 06:59 18:59 Intake Total 1000 590 240 Balance 1000 590 240 Weight 163 kg Intake: Oral 1000 590 240 Other: Voiding Method Toilet Toilet Toilet # Voids 2 1 - Exam General: Alert and oriented 3, no acute distress, morbidly obese Cardiovascular: Regular rate and rhythm, S1/S2 Lungs: Diminished breath sounds bilaterally Abdomen: Soft nontender nondistended positive bowel sounds Extremities: 2+ pitting edema - Labs CBC & Chem 7: 09/27/16 06:40 09/27/16 06:40 Labs: Abnormal Lab Results - Last 24 Hours (Table) 09/26/16 09/26/16 09/27/16 Range/Units 17:15 20:16 06:40 Chloride 96 L (98-107) mmol/L Carbon Dioxide 34 H (22-30) mmol/L BUN 35 H (7-17) mg/dL Glucose 110 H (74-99) mg/dL POC Glucose (mg/dL) 317 H 360 H (75-99) mg/dL 09/27/16 09/27/16 09/27/16 Range/Units 07:04 07:22 11:45 Chloride (98-107) mmol/L Carbon Dioxide (22-30) mmol/L BUN (7-17) mg/dL Glucose (74-99) mg/dL POC Glucose (mg/dL) 109 H 105 H 153 H (75-99) mg/dL Assessment and Plan Plan: Acute on chronic hypoxic respiratory failure Acute exacerbation of COPD and asthma Hypercarbia Tracheobronchitis Pulmonary hypertension with cor pulmonale Morbid obesity, highly suspect obstructive sleep apnea/obesity hypoventilation syndrome Mild to moderate pulmonary hypertension, RVSP 42 mmHg Lung nodule which is PET positive consistent with cancer, patient undergoing radiation therapy next line diabetes mellitus type 2 uncontrolled next line dyslipidemia Hypertension Hypothyroidism Medical noncompliance O2 to maintain saturation greater than equal to 88% Bronchodilators and Pulmicort Continue Perforomist Diuresis Singulair Antibiotics: Doxycycline Patient is highly encouraged to proceed with outpatient PSG and subsequent titration study Blood sugar control Steroid taper Incentive spirometry and pulmonary hygiene Recommend pulmonary rehab however the patient has declined in the past GI and DVT prophylaxis: Pepcid, Lovenox Continue PT and OT OK to DC from pulmonary standpoint
[2016-09-27 15:19] VITALS: PULSE 92
--- NOTE | 2016-09-27 17:32 | P.DS ---
Providers Date of admission: 09/22/16 20:55 Expected date of discharge: 09/27/16 Attending physician: MD Dr. Blaire Seaman Consults: 09/22/16 21:16 Consult Physician Routine Consulting Provider: Danielito Arellano Consult Reason/Comments: cp Do you want consulting provider notified?: Yes Consult Physician Routine Consulting Provider: Zeyad Avila Consult Reason/Comments: sob, copd Do you want consulting provider notified?: Yes Dr. Staton, Pulmonary Dr. Flor, Cardiology Primary care physician: [facility] Course: Final Diagnoses: 1. Acute on chronic hypercapnic, hypoxic respiratory failure secondary to acute COPD exacerbation, restrictive lung disease. 2 obstructive sleep apnea 3. tracheobronchitis 4. Moderate pulmonary hypertension . 5. Chronic right-sided heart failure 6. Chronic venostasis 7. Morbid obesity, BMI 53.1 8. Obesity hypoventilation syndrome 9. Diabetes mellitus type 2 10. Hyperlipidemia 11. Hypertension 12. Osteoarthritis 13. Hyperglycemia, steroid-induced. 14. History of nicotine abuse . 15. Lung nodule, Undergoing radiation therapy Hospital course: This a 51-year-old female admitted with shortness of breath, acute on chronic hypercapnic, hypoxic respiratory failure secondary to acute COPD exacerbation. Maintained on nebulized bronchodilators, systemic IV steroids, antibiotics with significant clinical improvement. Patient is now maintaining O2 sats of 94% on 4 L nasal cannula which is patient's baseline. Evaluated by cardiology, classifying chest pain atypical, muscle skeletal; troponin series negative, EKG unchanged from previous. Further outpatient cardiology follow-up pending improvement in pulmonary status, recommended. Evaluated and cleared by pulmonary for discharge. Patient is being discharged home in a stable condition with guarded prognosis. The impression and plan of care has been dictated as directed. : I performed a H&P examination of this patient and discussed the same with the dictator. I agree with the dictator's note. Any additional findings/opinions/ etc. will be noted. Patient Condition at Discharge: Stable Plan - Discharge Summary New Discharge Prescriptions: Doxycycline [Vibramycin] 100 mg PO BID #10 cap predniSONE 10 mg PO DIRECTED #30 tab Discharge Medication List Famotidine [Pepcid] 20 mg PO DAILY 08/19/14 [History] Loratadine 10 mg PO DAILY PRN 08/19/14 [History] Ferrous Sulfate [Iron (65 MG Elemental)] 325 mg PO DAILY 08/20/14 [History] Nitroglycerin Sl Tabs [Nitrostat] 0.4 mg SUBLINGUAL Q5M PRN 08/20/14 [History] metFORMIN HCL 1,000 mg PO AC-BID 08/20/14 [History] Albuterol Nebulized [Ventolin Nebulized] 3 ml INHALATION RT-TID 03/13/15 [ History] Lisinopril [Zestril] 5 mg PO DAILY 03/13/15 [History] Gabapentin [Neurontin] 300 mg PO BID 03/15/16 [History] Simvastatin [Zocor] 40 mg PO HS 03/15/16 [History] Febuxostat [Uloric] 80 mg PO DAILY 05/04/16 [History] Umeclidinium Brm/Vilanterol Tr [Anoro Ellipta 62.5-25 Mcg INH] 1 puff INHALATION RT-DAILY 05/04/16 [History] Ipratropium-Albuterol Nebulize [Duoneb 0.5 mg-3 mg/3 ml Soln] 3 ml INHALATION RT -Q4H PRN #0 ampul.neb 05/06/16 [Rx] traMADol HCl [Ultram] 50 mg PO QID PRN #0 tab 05/06/16 [Rx] INSULIN LISPRO (humaLOG) [humaLOG (formulary)] 10 unit SQ AC-TID #1 vial [Rx] Potassium Chloride ER [K-Dur 20] 20 meq PO BID tab.er.prt 05/25/16 [Rx] Furosemide [Lasix] 80 mg PO BID@0900,1600 06/08/16 [History] Insulin Glargine [Lantus] 120 unit SQ DAILY@0900 06/08/16 [History] Pregabalin [Lyrica] 100 mg PO BID 06/08/16 [History] Metoprolol Tartrate [Lopressor] 12.5 mg PO DAILY 07/18/16 [History] Montelukast [Singulair] 10 mg PO HS 07/18/16 [History] Albuterol Inhaler [Ventolin Hfa Inhaler] 1 - 2 puff INHALATION RT-Q6H PRN [History] Buta/APAP/Caf/Cod 77-770-55-30 [Fioricet w/Cod 99-092-01-30MG] 1 - 2 cap PO Q4H PRN #30 capsule 08/27/16 [Rx] Doxycycline [Vibramycin] 100 mg PO BID #10 cap 09/27/16 [Rx] Ketotifen 0.025% Ophth Soln [Zaditor] 1 drops BOTH EYES BID ml 09/27/16 [Rx] Tetrahydrozoline 0.05% Ophth [Visine Eye Drops] 1 drops BOTH EYES QID ml [Rx] predniSONE 10 mg PO DIRECTED #30 tab 09/27/16 [Rx] Follow up Appointment(s)/Referral(s): Marcus Owen MD [STAFF PHYSICIAN] - 1 Week Mary Staton DO [Doctor of Osteopathic Medicine] - 2 Weeks [facility], [NON-STAFF] - 1 Week Herrera Dimas DO [Primary Care Provider] - 3 Days Ambulatory/Diagnostic Orders: Complete Blood Count w/diff [LAB.AMB] Time Frame: 3 Days, Location: Determined By Patient Activity/Diet/Wound Care/Special Instructions: Diet: Consistent carb Activity: Limited to follow up. Accu-Cheks before meals and at bedtime
[2016-10-01 11:48] LABS: Mis test requested (Blood) Hypersen.Pneum.Eval
== END 2016-09-27 18:02 | disposition home health service (06) | DRG 190 ==
LOC: EC 18:58 → 6SEL 20:55 → 3SUR 09-24 00:13
PROVIDERS: ADMIT Internal Medicine; ATTEND Internal Medicine
DX: J44.0 Chronic obstructive pulmonary disease with (acute) lower respiratory infection (principal); J96.22 Acute and chronic respiratory failure with hypercapnia; J96.21 Acute and chronic respiratory failure with hypoxia; I27.2 Other secondary pulmonary hypertension; E87.2 Acidosis; E66.2 Morbid (severe) obesity with alveolar hypoventilation; Z68.43 Body mass index [BMI] 50.0-59.9, adult; I11.0 Hypertensive heart disease with heart failure; I50.9 Heart failure, unspecified; E11.40 Type 2 diabetes mellitus with diabetic neuropathy, unspecified; C34.90 Malignant neoplasm of unspecified part of unspecified bronchus or lung; J98.4 Other disorders of lung; J44.1 Chronic obstructive pulmonary disease with (acute) exacerbation; E11.65 Type 2 diabetes mellitus with hyperglycemia; J20.9 Acute bronchitis, unspecified; J45.909 Unspecified asthma, uncomplicated; E78.5 Hyperlipidemia, unspecified; E03.9 Hypothyroidism, unspecified; M19.90 Unspecified osteoarthritis, unspecified site; T38.0X5A Adverse effect of glucocorticoids and synthetic analogues, initial encounter; M10.9 Gout, unspecified; G47.33 Obstructive sleep apnea (adult) (pediatric); M79.1 Myalgia; Z99.81 Dependence on supplemental oxygen; Z87.891 Personal history of nicotine dependence; Z79.84 Long term (current) use of oral hypoglycemic drugs; Z79.4 Long term (current) use of insulin; Z79.52 Long term (current) use of systemic steroids; Z79.899 Other long term (current) drug therapy; Z82.5 Family history of asthma and other chronic lower respiratory diseases; Z83.3 Family history of diabetes mellitus; Z91.19 Patient's noncompliance with other medical treatment and regimen
CPT/HCPCS: 36415; 71020; 80048; 80053; 80061; 82550; 82553; 82785; 83036; 83880; 84484; 85025; 85027; 85610; 85730; 86001; 86003; 86606; 86609; 87070; 87205; 93005; 94640; 96374; 96375; 99284

== ENCOUNTER 2016-10-04 14:17 | Inpatient (IN) | payer MEDICARE, OTHER ==
[2016-10-04] MEDS ORDERED: methylPREDNISolone SOD SUCCI 125 MG/2 ML VIAL IV STA (14:37)
[2016-10-04] MEDS ORDERED: IPRATROPIUM 0.5 MG/2.5 ML NEBU INHALATION STA (14:37)
[2016-10-04] MEDS ORDERED: SODIUM CHLORIDE 0.9% 1,000 ML IV STA ×2 (14:37)
[2016-10-04] MEDS ORDERED: KETOROLAC 30 MG/ML 1 ML VIAL IVP STA (14:37)
[2016-10-04] MEDS ORDERED: ALBUTEROL NEBULIZED 2.5 MG/3 ML INHALATION STA (14:37)
[2016-10-04] MEDS ORDERED: ACETAMINOPHEN IV (For NPO) 1,000 MG in EMPTY BAG 1 BAG IVPB STA (14:37)
--- NOTE | 2016-10-04 14:38 | ED ---
General Adult HPI - General Chief complaint: Shortness of Breath Stated complaint: SOB/Congestion/Cough/Blurred vision Time Seen by Provider: 10/04/16 14:36 Source: patient, RN notes reviewed, old records reviewed Mode of arrival: wheelchair Limitations: physical limitation - History of Present Illness Initial comments: This is a 51-year-old female ER for evaluation of severe shortness of breath and cough or congestion. Patient is Given medical history of COPD with multiple hospital admissions, recent hospital discharge. Patient states she does not smoke her roommate does smoke but every time and the change in weather and related messing up her breathing. No chest pain no fevers does have increased cough or congestion. She is doing breathing treatments at home without improvement - Related Data Home Medications Medication Instructions Recorded Confirmed Famotidine [Pepcid] 20 mg PO DAILY 08/19/14 10/04/16 Loratadine 10 mg PO DAILY PRN 08/19/14 10/04/16 Ferrous Sulfate [Iron (65 MG 325 mg PO DAILY 08/20/14 10/04/16 Elemental)] Nitroglycerin Sl Tabs [Nitrostat] 0.4 mg SUBLINGUAL Q5M PRN 08/20/14 10/04/16 metFORMIN HCL 1,000 mg PO AC-BID 08/20/14 10/04/16 Albuterol Nebulized [Ventolin 3 ml INHALATION RT-TID 03/13/15 10/04/16 Nebulized] Lisinopril [Zestril] 5 mg PO DAILY 03/13/15 10/04/16 Gabapentin [Neurontin] 300 mg PO BID 03/15/16 10/04/16 Simvastatin [Zocor] 40 mg PO HS 03/15/16 10/04/16 Febuxostat [Uloric] 80 mg PO DAILY 05/04/16 10/04/16 Umeclidinium Brm/Vilanterol Tr 1 puff INHALATION RT-DAILY 05/04/16 10/04/16 [Anoro Ellipta 62.5-25 Mcg INH] Furosemide [Lasix] 80 mg PO BID@0900,1600 06/08/16 10/04/16 Insulin Glargine [Lantus] 120 unit SQ DAILY@0900 06/08/16 10/04/16 Pregabalin [Lyrica] 100 mg PO BID 06/08/16 10/04/16 Metoprolol Tartrate [Lopressor] 12.5 mg PO DAILY 07/18/16 10/04/16 Montelukast [Singulair] 10 mg PO HS 07/18/16 10/04/16 Albuterol Inhaler [Ventolin Hfa 1 - 2 puff INHALATION RT-Q6H PRN 08/24/16 Inhaler] Previous Rx's Medication Instructions Recorded Ipratropium-Albuterol Nebulize 3 ml INHALATION RT-Q4H PRN #0 05/06/16 [Duoneb 0.5 mg-3 mg/3 ml Soln] ampul.neb traMADol HCl [Ultram] 50 mg PO QID PRN #0 tab 05/06/16 INSULIN LISPRO (humaLOG) [humaLOG 10 unit SQ AC-TID #1 vial 05/25/16 (formulary)] Potassium Chloride ER [K-Dur 20] 20 meq PO BID tab.er.prt 05/25/16 Buta/APAP/Caf/Cod 17-808-97-30 1 - 2 cap PO Q4H PRN #30 capsule 08/27/16 [Fioricet w/Cod 11-427-24-30MG] Ketotifen 0.025% Ophth Soln 1 drops BOTH EYES BID ml 09/27/16 [Zaditor] Tetrahydrozoline 0.05% Ophth 1 drops BOTH EYES QID ml 09/27/16 [Visine Eye Drops] predniSONE 10 mg PO DIRECTED #30 tab 09/27/16 Allergies Allergy/AdvReac Type Severity Reaction Status Date / Time No Known Allergies Allergy Verified 10/04/16 14:49 Review of Systems ROS Statement: Those systems with pertinent positive or pertinent negative responses have been documented in the HPI. ROS Other: All systems not noted in ROS Statement are negative. Past Medical History Past Medical History: Asthma, Chest Pain / Angina, Heart Failure, COPD, Diabetes Mellitus, Hyperlipidemia, Hypertension, Neurologic Disorder, Osteoarthritis (OA), Pneumonia, Respiratory Disorder, Sleep Apnea/CPAP/BIPAP, Syncope, Thyroid Disorder Additional Past Medical History / Comment(s): GOUT, NEUROPATHY-FEET, sleep apnea but won't wear cpap, has home 02 4 liters n/c atc, past resp failure, hypothyroid,,lt lower lobe nodule-radiation therapy(,unsuccesful bx) History of Any Multi-Drug Resistant Organisms: None Reported Past Surgical History: Section Additional Past Surgical History / Comment(s): LT CARPAL TUNNEL, 3 unsuccessful attempts at lt lobe bx Past Anesthesia/Blood Transfusion Reactions: No Reported Reaction Additional Past Anesthesia/Blood Transfusion Reaction / Comment(s): CLAUSTERPHOBIA Past Psychological History: No Psychological Hx Reported Additional Psychological History / Comment(s): PT LIVES AT HOME WITH A FRIEND, CURRENTLY RECIEVING HOME CARE SERVICES THRU [facility] NURSE AND PT WEEKLY. Smoking Status: Former smoker Past Alcohol Use History: None Reported Additional Past Alcohol Use History / Comment(s): STARTED SMOKING 1975-STOPPED 2007 Past Drug Use History: None Reported - Past Family History Father Family Medical History: COPD, Diabetes Mellitus Mother History Unknown: Yes Family Medical History: No Reported History Additional Family Medical History / Comment(s): AT AGE 43 FROM SUICIDE General Exam Limitations: physical limitation General appearance: alert, in distress, obese Head exam: Present: atraumatic, normocephalic, normal inspection Eye exam: Present: normal appearance, PERRL, EOMI. Absent: scleral icterus, conjunctival injection, periorbital swelling ENT exam: Present: normal exam, mucous membranes moist Neck exam: Present: normal inspection. Absent: tenderness, meningismus, lymphadenopathy Respiratory exam: Present: respiratory distress, wheezes, decreased breath sounds, prolonged expiratory. Absent: rales, rhonchi, stridor Cardiovascular Exam: Present: normal rhythm, tachycardia, normal heart sounds. Absent: systolic murmur, diastolic murmur, rubs, gallop, clicks GI/Abdominal exam: Present: soft, normal bowel sounds. Absent: distended, tenderness, guarding, rebound, rigid Extremities exam: Present: normal inspection, full ROM, normal capillary refill. Absent: tenderness, pedal edema, joint swelling, calf tenderness Back exam: Present: normal inspection Neurological exam: Present: alert, oriented X3, CN II-XII intact Psychiatric exam: Present: normal affect, normal mood Skin exam: Present: warm, dry, intact, normal color. Absent: rash Course Vital Signs 10/04/16 10/04/16 10/04/16 14:27 14:48 15:17 Temperature 99.9 F H Pulse Rate 104 H 93 Respiratory 20 24 Rate Blood Pressure 122/70 O2 Sat by Pulse 90 L Oximetry 10/04/16 10/04/16 10/04/16 15:18 15:30 15:48 Temperature 99.5 F Pulse Rate 91 91 100 Respiratory 22 Rate Blood Pressure 102/55 O2 Sat by Pulse 100 Oximetry 10/04/16 16:13 Temperature Pulse Rate 120 H Respiratory Rate Blood Pressure O2 Sat by Pulse Oximetry - Reevaluation(s) Reevaluation #1: 10/04/16 16:20 Patient with no improvement or prolonged breathing treatment, feels like she needs to stay in the hospital Reevaluation #2: 10/04/16 16:21 Patient denies smoking Medical Decision Making - Medical Decision Making Female ER Shorts with Cough Congestion Increasing, Recent Hospital Admission and Discharge. No Pneumonia on X-Ray Patient Will Be Admitted for Continued Steroids and Breathing Treatments for Severe COPD. - Lab Data Result diagrams: 10/04/16 14:47 10/04/16 14:47 Lab Results 10/04/16 10/04/16 10/04/16 Range/Units 14:47 14:47 14:47 WBC 9.7 (3.8-10.6) k/uL RBC 4.19 (3.80-5.40) m/uL Hgb 12.6 (11.4-16.0) gm/dL Hct 39.4 (34.0-46.0) % MCV 94.0 (80.0-100.0) fL MCH 30.0 (25.0-35.0) pg MCHC 31.9 (31.0-37.0) g/dL RDW 13.1 (11.5-15.5) % Plt Count 213 (150-450) k/uL Neutrophils % 92 % Lymphocytes % 3 % Monocytes % 4 % Eosinophils % 0 % Basophils % 0 % Neutrophils # 8.9 H (1.3-7.7) k/uL Lymphocytes # 0.3 L (1.0-4.8) k/uL Monocytes # 0.4 (0-1.0) k/uL Eosinophils # 0.0 (0-0.7) k/uL Basophils # 0.0 (0-0.2) k/uL PT (9.0-12.0) sec INR (<1.1) APTT (22.0-30.0) sec D-Dimer (<0.60) mg/L FEU Sodium 140 (137-145) mmol/L Potassium 4.8 (3.5-5.1) mmol/L Chloride 97 L (98-107) mmol/L Carbon Dioxide 34 H (22-30) mmol/L Anion Gap 9 mmol/L BUN 24 H (7-17) mg/dL Creatinine 0.71 (0.52-1.04) mg/dL Est GFR (MDRD) Af Amer >60 (>60 ml/min/1.73 sqM) Est GFR (MDRD) Non-Af >60 (>60 ml/min/1.73 sqM) Glucose 271 H (74-99) mg/dL Calcium 9.1 (8.4-10.2) mg/dL Magnesium 1.5 L (1.6-2.3) mg/dL Total Bilirubin 0.4 (0.2-1.3) mg/dL AST 16 (14-36) U/L ALT 42 (9-52) U/L Alkaline Phosphatase 70 (38-126) U/L Total Creatine Kinase 34 (30-135) U/L CK-MB (CK-2) 0.8 (0.0-2.4) ng/mL CK-MB (CK-2) Rel Index 2.4 Troponin I <0.012 (0.000-0.034) ng/mL NT-Pro-B Natriuret Pep pg/mL Total Protein 6.3 (6.3-8.2) g/dL Albumin 3.7 (3.5-5.0) g/dL 10/04/16 10/04/16 Range/Units 14:47 14:47 WBC (3.8-10.6) k/uL RBC (3.80-5.40) m/uL Hgb (11.4-16.0) gm/dL Hct (34.0-46.0) % MCV (80.0-100.0) fL MCH (25.0-35.0) pg MCHC (31.0-37.0) g/dL RDW (11.5-15.5) % Plt Count (150-450) k/uL Neutrophils % % Lymphocytes % % Monocytes % % Eosinophils % % Basophils % % Neutrophils # (1.3-7.7) k/uL Lymphocytes # (1.0-4.8) k/uL Monocytes # (0-1.0) k/uL Eosinophils # (0-0.7) k/uL Basophils # (0-0.2) k/uL PT 10.0 (9.0-12.0) sec INR 1.0 (<1.1) APTT 21.6 L (22.0-30.0) sec D-Dimer 0.26 (<0.60) mg/L FEU Sodium (137-145) mmol/L Potassium (3.5-5.1) mmol/L Chloride (98-107) mmol/L Carbon Dioxide (22-30) mmol/L Anion Gap mmol/L BUN (7-17) mg/dL Creatinine (0.52-1.04) mg/dL Est GFR (MDRD) Af Amer (>60 ml/min/1.73 sqM) Est GFR (MDRD) Non-Af (>60 ml/min/1.73 sqM) Glucose (74-99) mg/dL Calcium (8.4-10.2) mg/dL Magnesium (1.6-2.3) mg/dL Total Bilirubin (0.2-1.3) mg/dL AST (14-36) U/L ALT (9-52) U/L Alkaline Phosphatase (38-126) U/L Total Creatine Kinase (30-135) U/L CK-MB (CK-2) (0.0-2.4) ng/mL CK-MB (CK-2) Rel Index Troponin I (0.000-0.034) ng/mL NT-Pro-B Natriuret Pep 114 pg/mL Total Protein (6.3-8.2) g/dL Albumin (3.5-5.0) g/dL - Radiology Data Radiology results: report reviewed (Chest x-ray negative for acute disease), image reviewed Disposition Clinical Impression: Acute respiratory failure with hypoxia, COPD exacerbation, Obstructive sleep apnea, Acute exacerbation of chronic obstructive airways disease, Hypomagnesemia Disposition: ADMITTED IP TO THIS [facility] Condition: Fair Referrals: Herrera Dimas DO [Primary Care Provider] - 1-2 days
[2016-10-04] MEDS ORDERED: AZITHROMYCIN 500 MG in SODIUM CHLORIDE 0.9% 250 ML IVPB STA (14:39)
--- NOTE | 2016-10-04 15:05 | XR ---
EXAMINATION TYPE: XR chest 1V portable DATE OF EXAM: 10/04/2016 3:01 PM Comparison: 09/25/2016 Clinical History: 51-year-old female with shortness of breath Findings: Exam limited by large body habitus and portable technique. Heart appears upper limits of normal in si ze. Difficult to exclude increased interstitial densities. Lung bases are underpenetrated and not opt imally assessed. Impression: Suboptimal exam. Correlate to exclude mild CHF. Consider repeating dedicated PA and lateral views whe n the patient is able.
[2016-10-04 15:12] LABS: Basophils % (A) 0 %; CH 29.6; CHCM 31.6; Eosinophils % (A) 0 %; HCT 39.4 % (34.0-46.0); HDW 2.44; HGB 12.6 gm/dL (11.4-16.0); Luc % (Auto) 1; Lymphocytes # (A) 0.3 k/uL (1.0-4.8); Lymphocytes % (A) 3 %; MCHC 31.9 g/dL (31.0-37.0); Mean Platelet Volume 7.6; Monocytes # (A) 0.4 k/uL (0-1.0); Monocytes % (A) 4 %; Neutrophils # (A) 8.9 k/uL (1.3-7.7); Neutrophils % (A) 92 %; RBC 4.19 m/uL (3.80-5.40); RDW 13.1 % (11.5-15.5); WBC 9.7 k/uL (3.8-10.6); WBC (Perox) 9.78
[2016-10-04 15:25] LABS: Glucose 271 mg/dL (74-99); Total Protein 6.3 g/dL (6.3-8.2)
[2016-10-04 15:26] LABS: ALT 42 U/L (9-52); AST 16 U/L (14-36); Alkaline Phosphatase 70 U/L (38-126); Anion Gap 9 mmol/L; Blood Urea Nitrogen 24 mg/dL (7-17); Calcium 9.1 mg/dL (8.4-10.2); Carbon Dioxide 34 mmol/L (22-30); Chloride 97 mmol/L (98-107); Magnesium 1.5 mg/dL (1.6-2.3); Non-African American GFR(MDRD) >60 (>60 ml/min/1.73 sqM); Potassium 4.8 mmol/L (3.5-5.1); Sodium 140 mmol/L (137-145); Total Bilirubin 0.4 mg/dL (0.2-1.3)
[2016-10-04] MEDS ORDERED: MAGNESIUM OXIDE 400 MG TAB PO STA (15:30)
[2016-10-04 15:37] LABS: Creatine Kinase 34 U/L (30-135)
[2016-10-04 15:51] LABS: Creatine Kinase MB 0.8 ng/mL (0.0-2.4); Troponin I <0.012 ng/mL (0.000-0.034)
[2016-10-04 15:54] LABS: Partial Thromboplastin Time 21.6 sec (22.0-30.0)
[2016-10-04] MEDS ORDERED: SODIUM CHLORIDE 0.9% 1,000 ML IV SCH (16:30)
[2016-10-04] MEDS: methylPREDNISolone SOD SUCCI 125 MG/2 ML VIAL IV SCH ×2 (18:18→23:37)
[2016-10-04] MEDS ORDERED: LORATADINE 10 MG TAB PO PRN (19:05)
[2016-10-04] MEDS ORDERED: IPRATROPIUM-ALBUTEROL 3 ML NEB INHALATION PRN (19:05)
[2016-10-04] MEDS ORDERED: NITROGLYCERIN SL TABS 0.4 MG TAB SUBLINGUAL PRN (19:05)
[2016-10-04] MEDS ORDERED: HYDROmorphone 1 MG/ML 1 ML SYRINGE IVP PRN (19:09)
[2016-10-04 19:54] LABS: Appearance,Urine Clear (Clear); Bilirubin,Urine Negative (Negative); Glucose,Urine (UA) 4+ (Negative); Ketones,Urine Negative (Negative); Leukocyte Esterase,Urine Negative (Negative); Nitrite,Urine Negative (Negative); Protein,Urine Negative (Negative); Specific Gravity,Urine 1.005 (1.001-1.035); UA Billing (MACRO vs. MICRO) CHEM; Urobilinogen,Urine <2.0 mg/dL (<2.0)
[2016-10-04 20:46] LABS: Glucose,Whole Blood 408 mg/dL (75-99)
[2016-10-04] MEDS: BUDESONIDE 1 MG/2 ML NEBU INHALATION SCH (20:49)
[2016-10-04] MEDS: IPRATROPIUM-ALBUTEROL 3 ML NEB INHALATION SCH (20:50)
[2016-10-04] MEDS: FORMOTEROL FUMARATE 20 MCG/2 ML NEBU INHALATION SCH (20:57)
[2016-10-04] MEDS: KETOTIFEN 0.025% OPHTH DROPS 5 ML BTL BOTH EYES SCH (21:52)
[2016-10-04] MEDS: TETRAHYDROZOLINE 0.05% OPHTH DROPS 15 ML BTL BOTH EYES SCH (21:53)
[2016-10-04] MEDS: MONTELUKAST 10 MG TAB PO SCH (21:54)
[2016-10-04] MEDS: ATORVASTATIN 20 MG TAB PO SCH (21:54)
[2016-10-04] MEDS: POTASSIUM CHLORIDE ER 20 MEQ TAB.ER PO SCH (21:54)
[2016-10-04] MEDS: PREGABALIN 100 MG CAP PO SCH (21:54)
[2016-10-04] MEDS: MELATONIN 3 MG TABLET PO SCH (21:54)
[2016-10-04] MEDS: GABAPENTIN 300 MG CAP PO SCH (21:54)
[2016-10-04] MEDS: FUROSEMIDE 10 MG/ML 10 ML VIAL IV SCH (21:55)
[2016-10-04] MEDS: INSULIN REGULAR 100 UNIT in SODIUM CHLORIDE 0.9% 100 ML IV SCH (22:14)
[2016-10-04 22:29] LABS: Glucose,Whole Blood 394 mg/dL (75-99)
[2016-10-04 23:10] LABS: Glucose,Whole Blood 437 mg/dL (75-99)
[2016-10-04 23:15] LABS: Glucose,Whole Blood 416 mg/dL (75-99)
[2016-10-04] MEDS: HEPARIN SODIUM,PORCINE 5,000 UNIT/ML 1 ML VIAL SQ SCH (23:37)
[2016-10-04 23:45] LABS: Glucose,Whole Blood 429 mg/dL (75-99)
[2016-10-05 00:05] LABS: Hemoglobin A1C 10.1 % (4.2-6.1)
[2016-10-05 00:07] LABS: Glucose,Whole Blood 440 mg/dL (75-99)
[2016-10-05] MEDS: INSULIN REGULAR 100 UNIT in SODIUM CHLORIDE 0.9% 100 ML IV SCH ×3 (00:31→16:24)
[2016-10-05 00:37] LABS: Glucose,Whole Blood 445 mg/dL (75-99)
[2016-10-05 01:14] LABS: Glucose,Whole Blood 420 mg/dL (75-99)
[2016-10-05 01:44] LABS: Glucose,Whole Blood 379 mg/dL (75-99)
[2016-10-05 02:21] LABS: Glucose,Whole Blood 343 mg/dL (75-99)
[2016-10-05 02:50] LABS: Glucose,Whole Blood 339 mg/dL (75-99)
[2016-10-05 03:17] LABS: Glucose,Whole Blood 296 mg/dL (75-99)
[2016-10-05 03:50] LABS: Glucose,Whole Blood 279 mg/dL (75-99)
[2016-10-05 04:20] LABS: Glucose,Whole Blood 309 mg/dL (75-99)
[2016-10-05 04:42] LABS: Glucose,Whole Blood 236 mg/dL (75-99)
[2016-10-05] MEDS: methylPREDNISolone SOD SUCCI 125 MG/2 ML VIAL IV SCH ×4 (05:21→23:05)
[2016-10-05 06:50] LABS: Glucose,Whole Blood 183 mg/dL (75-99)
[2016-10-05] MEDS: IPRATROPIUM-ALBUTEROL 3 ML NEB INHALATION SCH ×4 (07:08→21:07)
[2016-10-05] MEDS: BUDESONIDE 1 MG/2 ML NEBU INHALATION SCH ×2 (07:08→21:07)
[2016-10-05] MEDS: FORMOTEROL FUMARATE 20 MCG/2 ML NEBU INHALATION SCH ×2 (07:08→21:07)
[2016-10-05 08:06] LABS: Glucose,Whole Blood 236 mg/dL (75-99)
[2016-10-05] MEDS: INSULIN LISPRO (humaLOG) 300 UNIT/3 ML VIAL SQ SCH ×3 (08:12→18:02)
[2016-10-05] MEDS: INSULIN GLARGINE 100 UNIT/ML 10 ML VIAL SQ SCH (08:12)
[2016-10-05] MEDS: metFORMIN 500 MG TAB PO SCH ×2 (08:12→16:23)
[2016-10-05] MEDS: POTASSIUM CHLORIDE ER 20 MEQ TAB.ER PO SCH ×2 (08:14→20:11)
[2016-10-05] MEDS: KETOTIFEN 0.025% OPHTH DROPS 5 ML BTL BOTH EYES SCH ×2 (08:14→20:11)
[2016-10-05] MEDS: GABAPENTIN 300 MG CAP PO SCH ×2 (08:14→20:11)
[2016-10-05] MEDS: FUROSEMIDE 10 MG/ML 10 ML VIAL IV SCH ×2 (08:14→21:17)
[2016-10-05] MEDS: LISINOPRIL 5 MG TAB PO SCH (08:14)
[2016-10-05] MEDS: METOPROLOL TARTRATE 12.5 MG TAB PO SCH (08:14)
[2016-10-05] MEDS: HEPARIN SODIUM,PORCINE 5,000 UNIT/ML 1 ML VIAL SQ SCH ×3 (08:14→23:05)
[2016-10-05] MEDS: ALLOPURINOL 100 MG TAB PO SCH (08:14)
[2016-10-05] MEDS: FAMOTIDINE 20 MG TAB PO SCH (08:14)
[2016-10-05] MEDS: FERROUS SULFATE 325 MG TAB PO SCH (08:14)
[2016-10-05] MEDS: PREGABALIN 100 MG CAP PO SCH ×2 (08:15→20:11)
[2016-10-05] MEDS: TETRAHYDROZOLINE 0.05% OPHTH DROPS 15 ML BTL BOTH EYES SCH ×4 (08:15→20:14)
--- NOTE | 2016-10-05 08:36 | HP ---
DATE OF ADMISSION: 10/04/2016 DATE OF SERVICE: 10/04/2016 CHIEF COMPLAINT: Shortness of breath and cough. HISTORY OF PRESENT ILLNESS: This is a 51-year-old woman with a past medical history of history of COPD, history of asthma, CHF, history of diabetes, hypertension, hyperlipidemia, history of degenerative joint disease, history of gout, history of neuropathy, history of sleep apnea being followed by Dr. Dimas and Dr. Abby Avila in the outpatient setting was recently admitted with COPD acute exacerbation. The patient was treated with bronchodilators and steroids. The patient improved significantly. Patient went home. Subsequently, patient had increasing shortness of breath and cough and sputum for the last several days and pat went to Dr. Abby Avila's office and direct to [facility] ER for admission and the patient admitted for further evaluation and treatment. Chest x-ray was done, which showed mild possibly to mild congestive heart failure. There is no history of fever, rigors. No history of headache, loss of consciousness or seizures at this time. PAST MEDICAL HISTORY: History of asthma, chronic obstructive pulmonary disease, history of congestive heart failure, history of diabetes, hypertension, history of neuralgia, history of degenerative joint disease, history of pneumonia, history of gout, history of sleep apnea. Medications prior to admission include: 1. Ultram 50 mg q.i.d. p.r.n. 2. Zocor 40 mg q.h.s. 3. Nitrostat 0.4 sublingual p.r.n. 4. Singulair 10 mg q.h.s. 5. Loratadine 10 mg daily p.r.n. 6. DuoNeb q.i.d. and p.r.n. 7. Fioricet with codeine 1 to 2 capsules q.4 p.r.n. 8. Ventolin HFA 1 to 2 puffs q.6 p.r.n. 9. Prednisone 10 mg p.r.n. 10. Metformin 1000 mg b.i.d. 11. Anoro Ellipta 62.5/25 1 puff daily. 12. Visine eyedrops q.i.d. 13. Lyrica 100 mg b.i.d. 14. K-Dur 10 mEq p.o. b.i.d. 15. Lopressor 12.5 mg. 16. Zestril 5 mg p.o. daily. 17. Zaditor 1 drop both eyes b.i.d. 18. Lantus 120 subcu daily. 19. Humalog 10 units subcu a.c. t.i.d. 20. Neurontin 300 mg p.o. b.i.d. 21. Lasix 80 mg p.o. b.i.d. 22. Iron 325 mg daily. 23. Uloric 80 mg p.o. daily. 24. Pepcid 20 mg daily. 25. Ventolin HFA t.i.d. ALLERGIES: None. FAMILY HISTORY: History of COPD, diabetes mellitus in the family. SOCIAL HISTORY: Previous history of smoking. No history of alcohol intake. REVIEW OF SYSTEMS: ENT: Diminished vision, diminished hearing. CARDIOVASCULAR: As mentioned earlier. RESPIRATORY: As mentioned earlier. GI: No nausea. : No dysuria. NERVOUS SYSTEM: As mentioned earlier. ALLERGY/IMMUNOLOGY: No asthma or hayfever. MUSCULOSKELETAL: As mentioned earlier. HEMATOLOGY: No history of anemia. ENDOCRINE: As mentioned earlier. CONSTITUTIONAL: As mentioned earlier. DERMATOLOGY: Negative. RHEUMATOLOGY: Negative. PSYCHIATRY: As mentioned earlier. PHYSICAL EXAMINATION: Patient is alert and oriented x3. Pulse is 116 irregular, blood pressure 130/81, respirations 20, temperature 97 degrees, pulse ox 91% on 4 L. HEENT: Conjunctivae normal. Oral mucosa moist. NECK: No jugular venous distention. No carotid bruit. No lymph node enlargement. CARDIOVASCULAR: S1 and S2, muffled. No S3, no S4. RESPIRATORY: Breath sounds diminished at the bases. Bilateral scattered rhonchi and crackles. ABDOMEN: Soft, obese, nontender. No mass palpable. LEGS: Bilateral leg edema. NERVOUS SYSTEM: Higher function as mentioned. Moves all four limbs. No focal motor deficits. LYMPHATIC: No lymphadenopathy in the neck, axillae or groin. SKIN: No ulcer, rash or bleeding. LABS: CBC within normal limits. Otherwise, NT-proBNP is only 114. Magnesium 1.5. ASSESSMENT: 1. Shortness of breath, possibly multifactorial with chronic obstructive pulmonary disease acute exacerbation with acute hypoxic hypercarbic respiratory failure. 2. Rule out congestive heart failure acute exacerbation. 3. History of asthma, chronic obstructive pulmonary disease. 4. History of chest pain. 5. Diabetes mellitus type 2. 6. Super morbid obesity with BMI 54.9. 7. Hypertension. 8. Hyperlipidemia. 9. History of degenerative joint disease. 10. History of pneumonia. 11. History of sleep apnea. 12. History of syncope. 13. History of gout. 14. History of peripheral neuropathy. 15. History of chronic hypoxic respiratory failure with home oxygen 2 to 4 liters. 16. History of claustrophobia. 17. Remote history nicotine dependence. 18. History of lung nodule. 19. FULL CODE. RECOMMENDATIONS AND DISCUSSION: In this 51-year-old woman who presented with multiple complex medical issues, we will monitor the patient closely. Continue the current medications. Continue symptomatic treatment. Otherwise at this time I would recommend optimize bronchodilator treatment. Cardiology and Pulmonology evaluations. A 2-D echo was done in July, which showed ejection fraction of 50 to 60% indicating chronic diastolic dysfunction. Will continue to monitor. Further recommendations to follow. Copy of dictation forwarded to Dr. Dimas who is the primary physician. TOSIN
[2016-10-05 09:01] LABS: Basophils % (A) 0 %; CH 29.6; CHCM 31.1; Eosinophils % (A) 0 %; HCT 40.3 % (34.0-46.0); HDW 2.38; HGB 12.6 gm/dL (11.4-16.0); Hypochromasia Slight; Luc # (Auto) 0.03; Luc % (Auto) 0; Lymphocytes # (A) 0.2 k/uL (1.0-4.8); Lymphocytes % (A) 3 %; MCH 29.9 pg (25.0-35.0); MCHC 31.3 g/dL (31.0-37.0); MCV 95.6 fL (80.0-100.0); Mean Platelet Volume 7.5; Monocytes # (A) 0.2 k/uL (0-1.0); Monocytes % (A) 2 %; Neutrophils # (A) 8.4 k/uL (1.3-7.7); Neutrophils % (A) 95 %; RBC 4.21 m/uL (3.80-5.40); WBC 8.9 k/uL (3.8-10.6); WBC (Perox) 9.52
[2016-10-05 09:41] LABS: Anion Gap 9 mmol/L; Blood Urea Nitrogen 27 mg/dL (7-17); Calcium 9.5 mg/dL (8.4-10.2); Carbon Dioxide 36 mmol/L (22-30); Chloride 98 mmol/L (98-107); Glucose 270 mg/dL (74-99); Magnesium 1.9 mg/dL (1.6-2.3); Non-African American GFR(MDRD) >60 (>60 ml/min/1.73 sqM); Potassium 4.6 mmol/L (3.5-5.1); Sodium 143 mmol/L (137-145)
[2016-10-05] MEDS: HYDROcodone/APAP 5-325MG 1 EACH TAB PO PRN (10:30)
[2016-10-05 10:34] LABS: Glucose,Whole Blood 264 mg/dL (75-99)
[2016-10-05 12:23] LABS: Glucose,Whole Blood 166 mg/dL (75-99)
[2016-10-05 14:23] LABS: Glucose,Whole Blood 215 mg/dL (75-99)
[2016-10-05 16:22] LABS: Glucose,Whole Blood 172 mg/dL (75-99)
--- NOTE | 2016-10-05 17:15 | P.CNPUL ---
History of Present Illness Consult date: 10/05/16 Reason for consult: dyspnea Chief complaint: Shortness of breath History of present illness: This is a 51-year-old female who presented to the emergency department complaining of shortness of breath, cough, congestion. She states this has been only going on for a day or 2. She saw Dr. Briseno's office and was told to come in the emergency room however she didn't come right away she went home and went to bed. The patient states that she woke up feeling short of breath and decided come to the ER. The patient is complaining about her fluid restriction and states that she can't understand why she has a fluid restricted. The patient does take Lasix twice a day at home. However it appears she is noncompliant with her fluid restriction. She states her lower extremity edema is about the same as before. She does have worsening shortness of breath when she lays flat. She has not yet followed up in the pulmonary office. Review of Systems All systems: negative Past Medical History Past Medical History: Asthma, Chest Pain / Angina, Heart Failure, COPD, Diabetes Mellitus, Hyperlipidemia, Hypertension, Neurologic Disorder, Osteoarthritis (OA), Pneumonia, Respiratory Disorder, Sleep Apnea/CPAP/BIPAP, Syncope, Thyroid Disorder Additional Past Medical History / Comment(s): GOUT, NEUROPATHY-FEET, sleep apnea but won't wear cpap, has home 02 4 liters n/c atc, past resp failure, hypothyroid,,lt lower lobe nodule-radiation therapy(,unsuccesful bx) History of Any Multi-Drug Resistant Organisms: None Reported Past Surgical History: Section Additional Past Surgical History / Comment(s): LT CARPAL TUNNEL, 3 unsuccessful attempts at lt lobe bx Past Anesthesia/Blood Transfusion Reactions: No Reported Reaction Additional Past Anesthesia/Blood Transfusion Reaction / Comment(s): CLAUSTERPHOBIA Past Psychological History: No Psychological Hx Reported Additional Psychological History / Comment(s): PT LIVES AT HOME WITH A FRIEND, CURRENTLY RECIEVING HOME CARE SERVICES THRU [facility] Smoking Status: Former smoker Past Alcohol Use History: None Reported Additional Past Alcohol Use History / Comment(s): STARTED SMOKING 1975-STOPPED 2007 Past Drug Use History: None Reported - Past Family History Father Family Medical History: COPD, Diabetes Mellitus Mother History Unknown: Yes Family Medical History: No Reported History Additional Family Medical History / Comment(s): AT AGE 43 FROM SUICIDE Medications and Allergies Home Medications Medication Instructions Recorded Confirmed Type Famotidine [Pepcid] 20 mg PO DAILY 08/19/14 10/04/16 History Loratadine 10 mg PO DAILY PRN 08/19/14 10/04/16 History Ferrous Sulfate [Iron (65 MG 325 mg PO DAILY 08/20/14 10/04/16 History Elemental)] Nitroglycerin Sl Tabs [Nitrostat] 0.4 mg SUBLINGUAL Q5M PRN 08/20/14 10/04/16 History metFORMIN HCL 1,000 mg PO AC-BID 08/20/14 10/04/16 History Albuterol Nebulized [Ventolin 3 ml INHALATION RT-TID 03/13/15 10/04/16 History Nebulized] Lisinopril [Zestril] 5 mg PO DAILY 03/13/15 10/04/16 History Gabapentin [Neurontin] 300 mg PO BID 03/15/16 10/04/16 History Simvastatin [Zocor] 40 mg PO HS 03/15/16 10/04/16 History Febuxostat [Uloric] 80 mg PO DAILY 05/04/16 10/04/16 History Umeclidinium Brm/Vilanterol Tr 1 puff INHALATION RT-DAILY 05/04/16 10/04/16 History [Anoro Ellipta 62.5-25 Mcg INH] Furosemide [Lasix] 80 mg PO BID@0900,1600 06/08/16 10/04/16 History Insulin Glargine [Lantus] 120 unit SQ DAILY@0900 06/08/16 10/04/16 History Pregabalin [Lyrica] 100 mg PO BID 06/08/16 10/04/16 History Metoprolol Tartrate [Lopressor] 12.5 mg PO DAILY 07/18/16 10/04/16 History Montelukast [Singulair] 10 mg PO HS 07/18/16 10/04/16 History Albuterol Inhaler [Ventolin Hfa 1 - 2 puff INHALATION RT-Q6H PRN 08/24/16 History Inhaler] Allergies Allergy/AdvReac Type Severity Reaction Status Date / Time No Known Allergies Allergy Verified 10/04/16 14:49 Physical Exam Osteopathic Statement: *. No significant issues noted on an osteopathic structural exam other than those noted in the History and Physical/Consult. Vitals: Vital Signs Temp Pulse Pulse Resp BP BP Pulse Ox 10/05/16 16:44 92 10/05/16 16:32 92 10/05/16 11:15 92 10/05/16 11:04 92 10/05/16 07:38 96 10/05/16 07:22 100 10/05/16 07:19 100 10/05/16 07:08 100 10/05/16 07:00 97.9 F 95 16 114/68 99 10/05/16 00:00 116 H 10/04/16 21:07 104 H 10/04/16 21:00 108 H 10/04/16 20:59 108 H 10/04/16 20:50 108 H 10/04/16 17:50 97.0 F L 116 H 20 133/81 91 L Intake and Output 10/05/16 10/05/16 10/05/16 06:59 14:59 22:59 Intake Total 171.668 69.199 17.134 Balance 171.668 69.199 17.134 Intake: Intake, IV Titration 171.668 69.199 17.134 Amount Insulin Regular 100 unit 171.668 69.199 17.134 In Sodium Chloride 0.9% 100 ml @ Titrate IV .Q0M [facility] Rx#:[id number] Oral 0 Other: Voiding Method Toilet Toilet Toilet # Voids 1 2 Weight 174 kg 174 kg Patient Weight 10/06/16 06:59 Weight 174 kg Gen.: Patient is alert and oriented 3, no acute distress, morbidly obese Cardiovascular: Regular rate and rhythm, S1/S2 Lungs: Diminished breath sounds bilaterally with scattered crackles Abdomen: Soft nontender nondistended positive bowel sounds Extremities: 2-3+ pitting edema Results - Laboratory Findings CBC and BMP: 10/05/16 08:33 10/05/16 08:33 PT/INR, D-dimer PT 10.0 sec (9.0-12.0) 10/04/16 14:47 INR 1.0 (<1.1) 10/04/16 14:47 D-Dimer 0.26 mg/L FEU (<0.60) 10/04/16 14:47 Abnormal lab findings: Abnormal Labs 10/04/16 10/04/16 10/04/16 19:00 20:35 22:19 Neutrophils # Lymphocytes # Carbon Dioxide BUN Glucose POC Glucose (mg/dL) 408 H 394 H Urine Glucose (UA) 4+ H 10/04/16 10/04/16 10/04/16 23:00 23:13 23:36 Neutrophils # Lymphocytes # Carbon Dioxide BUN Glucose POC Glucose (mg/dL) 437 H 416 H 429 H Urine Glucose (UA) 10/04/16 10/05/16 10/05/16 23:57 00:27 01:04 Neutrophils # Lymphocytes # Carbon Dioxide BUN Glucose POC Glucose (mg/dL) 440 H 445 H 420 H Urine Glucose (UA) 10/05/16 10/05/16 10/05/16 01:35 02:03 02:41 Neutrophils # Lymphocytes # Carbon Dioxide BUN Glucose POC Glucose (mg/dL) 379 H 343 H 339 H Urine Glucose (UA) 10/05/16 10/05/16 10/05/16 03:08 03:41 04:11 Neutrophils # Lymphocytes # Carbon Dioxide BUN Glucose POC Glucose (mg/dL) 296 H 279 H 309 H Urine Glucose (UA) 10/05/16 10/05/16 10/05/16 04:39 06:41 08:02 Neutrophils # Lymphocytes # Carbon Dioxide BUN Glucose POC Glucose (mg/dL) 236 H 183 H 236 H Urine Glucose (UA) 10/05/16 10/05/16 10/05/16 08:33 08:33 10:31 Neutrophils # 8.4 H Lymphocytes # 0.2 L Carbon Dioxide 36 H BUN 27 H Glucose 270 H POC Glucose (mg/dL) 264 H Urine Glucose (UA) 10/05/16 10/05/16 10/05/16 12:05 14:00 16:04 Neutrophils # Lymphocytes # Carbon Dioxide BUN Glucose POC Glucose (mg/dL) 166 H 215 H 172 H Urine Glucose (UA) - Diagnostic Findings Chest x-ray: report reviewed, image reviewed Assessment and Plan Plan: Acute on chronic hypoxic respiratory failure Acute exacerbation of COPD and asthma, severe persistent Hypercarbia and neck signed tracheobronchitis Pulmonary vascular congestion Pulmonary hypertension with cor pulmonale Morbid obesity highly suspect obstructive sleep apnea/obesity hypoventilation syndrome Mild to moderate pulmonary hypertension with an RVSP of 42 mmHg Lung nodule which is PET positive consistent with cancer, patient undergoing radiation therapy Diabetes mellitus type 2 uncontrolled Dyslipidemia Hypertension Hypothyroidism Medical noncompliance Noncompliance with home fluid restriction O2 to maintain saturation greater than or equal to 88% Bronchodilators and Pulmicort Diuresis Singulair I's and O's and daily weights Fluid restriction, patient is encouraged to be compliant Blood sugar control Steroid taper Outpatient discussion regarding pulmonary rehabilitation GI and DVT prophylaxis Patient is encouraged to proceed with outpatient PSG and subsequent titration study, her recurrent heart failure is directly related to her underlying uncontrolled sleep apnea Patient has missed multiple office appointments. Her next appointment was scheduled for 10/06/16. This will be rescheduled prior to discharge.
[2016-10-05 18:05] LABS: Glucose,Whole Blood 173 mg/dL (75-99)
--- NOTE | 2016-10-05 18:51 | PN ---
DATE OF SERVICE: 10/05/2016 This 51-year-old woman was admitted with shortness of breath and possible chronic obstructive pulmonary disease, and as well as congestive heart failure acute exacerbation has been closely monitored at this time. The patient had a 2-D echocardiogram last year which showed ejection fraction about 50 to 60%. The patient has been closely monitored. No chest pain, no palpitations. No fever. On exam, alert and oriented x3. Pulse is 100, blood pressure is 114/56, respirations 16, temperature 97.9, pulse ox 99% on 4 liters. HEENT: Conjunctivae normal. NECK: No jugular venous distention. CARDIOVASCULAR: S1 and S2, muffled. RESPIRATORY: Breath sounds diminished at the bases. A few scattered rhonchi and crackles. ABDOMEN: Soft, obese, nontender. LEGS: Bilateral leg edema. NERVOUS SYSTEM: No focal deficits. LABS: Accu-Cheks 270, 264, 160. CBC within normal limits. The BNP is 114. ASSESSMENT: 1. Shortness of breath multifactorial with chronic obstructive pulmonary disease acute exacerbation with acute purulent tracheobronchitis, as well as congestive heart failure acute exacerbation with acute on chronic diastolic dysfunction with ejection fraction 50 to 60% with acute hypoxic hypercarbic respiratory failure. 2. History of asthma, chronic obstructive pulmonary disease. 3. History of chest pain, musculoskeletal. 4. History of diabetes type 2. 5. Super morbid obesity with body mass index of 54.9. 6. Hypertension. 7. Hyperlipidemia. 8. History of degenerative joint disease. 9. History of pneumonia. 10. History of sleep apnea. 11. History of syncope. 12. History of gout. 13. History of peripheral neuropathy. 14. History of chronic hypoxic respiratory failure, on home oxygen 2 liters nasal cannula. 15. History of claustrophobia. 16. Remote history of nicotine dependence. 17. History of lung nodules. 18. FULL CODE. RECOMMENDATIONS AND DISCUSSION: I recommend to continue the current medications, continue monitoring and symptomatic treatment. Otherwise at this time I recommend to continue the bronchodilators, diuretics, fluid restriction, IV steroids. Closely follow with Pulmonary. Guarded prognosis. Further recommendations to follow.
[2016-10-05 20:04] LABS: Glucose,Whole Blood 238 mg/dL (75-99)
[2016-10-05] MEDS: MONTELUKAST 10 MG TAB PO SCH (20:11)
[2016-10-05] MEDS: MELATONIN 3 MG TABLET PO SCH (20:11)
[2016-10-05] MEDS: ATORVASTATIN 20 MG TAB PO SCH (20:11)
[2016-10-05] MEDS: guaiFENesin SYRUP 100MG/5ML 200 MG/10 ML CUP PO PRN (20:11)
[2016-10-05 22:11] LABS: Glucose,Whole Blood 163 mg/dL (75-99)
[2016-10-06 00:06] LABS: Glucose,Whole Blood 136 mg/dL (75-99)
[2016-10-06] MEDS: HYDROcodone/APAP 5-325MG 1 EACH TAB PO PRN (02:16)
[2016-10-06 02:20] LABS: Glucose,Whole Blood 166 mg/dL (75-99)
[2016-10-06 04:04] LABS: Glucose,Whole Blood 214 mg/dL (75-99)
[2016-10-06] MEDS: methylPREDNISolone SOD SUCCI 125 MG/2 ML VIAL IV SCH (05:06)
[2016-10-06] MEDS: INSULIN REGULAR 100 UNIT in SODIUM CHLORIDE 0.9% 100 ML IV SCH ×2 (05:22→23:31)
[2016-10-06 05:56] LABS: Glucose,Whole Blood 194 mg/dL (75-99)
[2016-10-06] MEDS: BUDESONIDE 1 MG/2 ML NEBU INHALATION SCH ×2 (07:06→20:50)
[2016-10-06] MEDS: FORMOTEROL FUMARATE 20 MCG/2 ML NEBU INHALATION SCH ×2 (07:06→20:50)
[2016-10-06] MEDS: IPRATROPIUM-ALBUTEROL 3 ML NEB INHALATION SCH ×4 (07:06→20:49)
[2016-10-06 08:01] LABS: Glucose,Whole Blood 181 mg/dL (75-99)
[2016-10-06 08:14] LABS: Basophils % (A) 0 %; CH 30.1; Eosinophils % (A) 0 %; HCT 42.1 % (34.0-46.0); HDW 2.27; HGB 13.1 gm/dL (11.4-16.0); Luc # (Auto) 0.06; Luc % (Auto) 1; Lymphocytes # (A) 0.5 k/uL (1.0-4.8); Lymphocytes % (A) 5 %; MCH 30.4 pg (25.0-35.0); MCHC 31.2 g/dL (31.0-37.0); MCV 97.4 fL (80.0-100.0); Mean Platelet Volume 8.4; Monocytes # (A) 0.3 k/uL (0-1.0); Monocytes % (A) 3 %; Neutrophils # (A) 9.2 k/uL (1.3-7.7); Neutrophils % (A) 92 %; RBC 4.32 m/uL (3.80-5.40); RDW 13.3 % (11.5-15.5); WBC (Perox) 10.42
[2016-10-06] MEDS: INSULIN LISPRO (humaLOG) 300 UNIT/3 ML VIAL SQ SCH ×3 (08:18→17:39)
[2016-10-06] MEDS: FUROSEMIDE 10 MG/ML 10 ML VIAL IV SCH ×2 (08:19→20:00)
[2016-10-06] MEDS: ALLOPURINOL 100 MG TAB PO SCH (08:20)
[2016-10-06] MEDS: PREGABALIN 100 MG CAP PO SCH ×2 (08:20→20:01)
[2016-10-06] MEDS: FERROUS SULFATE 325 MG TAB PO SCH (08:20)
[2016-10-06] MEDS: metFORMIN 500 MG TAB PO SCH ×2 (08:20→17:39)
[2016-10-06] MEDS: LISINOPRIL 5 MG TAB PO SCH (08:20)
[2016-10-06] MEDS: METOPROLOL TARTRATE 12.5 MG TAB PO SCH (08:20)
[2016-10-06] MEDS: POTASSIUM CHLORIDE ER 20 MEQ TAB.ER PO SCH ×2 (08:20→20:01)
[2016-10-06] MEDS: GABAPENTIN 300 MG CAP PO SCH ×2 (08:20→20:01)
[2016-10-06] MEDS: FAMOTIDINE 20 MG TAB PO SCH (08:20)
[2016-10-06] MEDS: HEPARIN SODIUM,PORCINE 5,000 UNIT/ML 1 ML VIAL SQ SCH ×2 (08:21→17:39)
[2016-10-06] MEDS: KETOTIFEN 0.025% OPHTH DROPS 5 ML BTL BOTH EYES SCH ×2 (08:22→20:01)
[2016-10-06] MEDS: TETRAHYDROZOLINE 0.05% OPHTH DROPS 15 ML BTL BOTH EYES SCH ×4 (08:25→20:01)
[2016-10-06 08:28] LABS: Anion Gap 7 mmol/L; Blood Urea Nitrogen 31 mg/dL (7-17); Calcium 9.6 mg/dL (8.4-10.2); Carbon Dioxide 38 mmol/L (22-30); Chloride 99 mmol/L (98-107); Glucose 202 mg/dL (74-99); Non-African American GFR(MDRD) >60 (>60 ml/min/1.73 sqM); Potassium 4.7 mmol/L (3.5-5.1); Sodium 144 mmol/L (137-145)
[2016-10-06 10:07] LABS: Glucose,Whole Blood 269 mg/dL (75-99)
--- NOTE | 2016-10-06 10:50 | P.PN ---
Subjective Principal diagnosis: Shortness of breath Patient seen and examined. Patient states that her breathing is still difficult. She is still short of breath especially with exertion. She states that the Lasix drip is making her urinate frequently. Her lower extremity swelling is improved slightly. Objective - Vital Signs Vital signs: Vital Signs Temp 97.0 F L 10/06/16 07:00 Pulse 92 10/06/16 07:29 Resp 22 10/06/16 07:00 BP 140/57 10/06/16 07:00 Pulse Ox 93 L 10/06/16 07:00 Intake & Output 10/05/16 10/06/16 10/06/16 18:59 06:59 18:59 Intake Total 94.500 71.518 16.567 Balance 94.500 71.518 16.567 Weight 170 kg 172 kg Intake: Intake, IV Titration 94.500 71.518 16.567 Amount Insulin Regular 100 unit 94.500 71.518 16.567 In Sodium Chloride 0.9% 100 ml @ Titrate IV .Q0M [facility] Rx#:[id number] Other: Voiding Method Toilet Toilet # Voids 2 - Exam Gen.: Patient is alert and oriented 3, no acute distress, morbidly obese Cardiovascular: Regular rate and rhythm, S1/S2 Lungs: Diminished breath sounds bilaterally with scattered crackles Abdomen: Soft nontender nondistended positive bowel sounds Extremities: 2-3+ pitting edema - Labs CBC & Chem 7: 10/06/16 07:47 10/06/16 07:47 Labs: Abnormal Lab Results - Last 24 Hours (Table) 10/05/16 10/05/16 10/05/16 Range/Units 12:05 14:00 16:04 Neutrophils # (1.3-7.7) k/uL Lymphocytes # (1.0-4.8) k/uL Carbon Dioxide (22-30) mmol/L BUN (7-17) mg/dL Glucose (74-99) mg/dL POC Glucose (mg/dL) 166 H 215 H 172 H (75-99) mg/dL 10/05/16 10/05/16 10/05/16 Range/Units 18:02 20:00 22:09 Neutrophils # (1.3-7.7) k/uL Lymphocytes # (1.0-4.8) k/uL Carbon Dioxide (22-30) mmol/L BUN (7-17) mg/dL Glucose (74-99) mg/dL POC Glucose (mg/dL) 173 H 238 H 163 H (75-99) mg/dL 10/06/16 10/06/16 10/06/16 Range/Units 00:04 02:17 04:03 Neutrophils # (1.3-7.7) k/uL Lymphocytes # (1.0-4.8) k/uL Carbon Dioxide (22-30) mmol/L BUN (7-17) mg/dL Glucose (74-99) mg/dL POC Glucose (mg/dL) 136 H 166 H 214 H (75-99) mg/dL 10/06/16 10/06/16 10/06/16 Range/Units 05:55 07:47 07:47 Neutrophils # 9.2 H (1.3-7.7) k/uL Lymphocytes # 0.5 L (1.0-4.8) k/uL Carbon Dioxide 38 H (22-30) mmol/L BUN 31 H (7-17) mg/dL Glucose 202 H (74-99) mg/dL POC Glucose (mg/dL) 194 H (75-99) mg/dL 10/06/16 10/06/16 Range/Units 07:56 10:05 Neutrophils # (1.3-7.7) k/uL Lymphocytes # (1.0-4.8) k/uL Carbon Dioxide (22-30) mmol/L BUN (7-17) mg/dL Glucose (74-99) mg/dL POC Glucose (mg/dL) 181 H 269 H (75-99) mg/dL Microbiology - Last 24 Hours (Table) 10/05/16 07:45 Gram Stain - Preliminary Sputum Assessment and Plan Plan: Acute on chronic hypoxic respiratory failure Acute exacerbation of COPD and asthma, severe persistent Hypercarbia and neck signed tracheobronchitis Pulmonary vascular congestion Pulmonary hypertension with cor pulmonale Morbid obesity highly suspect obstructive sleep apnea/obesity hypoventilation syndrome Mild to moderate pulmonary hypertension with an RVSP of 42 mmHg Lung nodule which is PET positive consistent with cancer, patient undergoing radiation therapy Diabetes mellitus type 2 uncontrolled Dyslipidemia Hypertension Hypothyroidism Medical noncompliance Noncompliance with home fluid restriction O2 to maintain saturation greater than or equal to 88% Bronchodilators and Pulmicort Diuresis Singulair I's and O's and daily weights Fluid restriction, patient is encouraged to be compliant Blood sugar control Steroid taper Outpatient discussion regarding pulmonary rehabilitation GI and DVT prophylaxis Patient is encouraged to proceed with outpatient PSG and subsequent titration study, her recurrent heart failure is directly related to her underlying uncontrolled sleep apnea Patient has missed multiple office appointments. Her next appointment was scheduled for 10/06/16. This will be rescheduled prior to discharge. Will order repeat CT chest today
--- NOTE | 2016-10-06 11:58 | CT ---
EXAMINATION TYPE: CT chest wo con DATE OF EXAM: 10/06/2016 11:28 AM COMPARISON: Previous study dated 08/10/2016. TECHNIQUE: Helical acquisition through the chest and upper abdomen was obtained without intravenous c ontrast. The data was reformatted in axial, coronal and sagittal projections. HISTORY: SOB. CHF. History of lung cancer. CT DLP: 2324.40 mGycm Automated exposure control for dose reduction was used. FINDINGS: There is minimal scarring in the right middle lobe. There is a stable, 3.7 mm nodule within the right middle lobe, best seen on image 36. There is atelectatic change present at the right lung base. Ther e is some atelectatic change present in the left lingula as well as in the dependent portions of the left lung base. There is no significant axillary adenopathy. There is shotty adenopathy within the mediastinum. There is no pleural fluid. There is a small amount of fluid or thickening in the anterior pericardium measuring 6.2 mm. There is evidence of old granulomatous disease in the liver and spleen. Visualized upper abdominal st ructures are otherwise unremarkable. No osseous lesion is seen. IMPRESSION: 1. SOLITARY PULMONARY NODULE WITHIN THE RIGHT MIDDLE LOBE DESCRIBED. THIS IS STABLE AND MAY REPRES ENT AN UNCALCIFIED GRANULOMA IN LIGHT OF THE CHANGES IN THE LIVER AND SPLEEN. 2. ATELECTATIC CHANGES DESCRIBED. 3. NONSPECIFIC MEDIASTINAL ADENOPATHY. 4. FLUID VERSUS THICKENING IN THE ANTERIOR PERICARDIUM.
[2016-10-06 12:08] LABS: Glucose,Whole Blood 213 mg/dL (75-99)
[2016-10-06] MEDS: INSULIN GLARGINE 100 UNIT/ML 10 ML VIAL SQ SCH (14:10)
[2016-10-06 14:14] LABS: Glucose,Whole Blood 146 mg/dL (75-99)
--- NOTE | 2016-10-06 14:29 | CONS ---
DATE OF CONSULTATION: Mrs. Sam is a 51-year-old female who is seen for cardiac evaluation. This patient came with the complaint of exertional shortness of breath and cough and congestion. This has been happening for the last couple of days. Patient has a history of COPD. She has a history of exertional shortness of breath and she has a chronic leg edema. Patient denies any definite prior history of myocardial infarction. She has a history of hypertension, hyperlipidemia. Past medical history includes history of hypertension, diabetes, history of respiratory disorder, and history suggestive of sleep apnea as well as thyroid disorder. Patient's home medications included Pepcid 20 mg daily, ferrous sulfate once a day, metformin 1000 mg b.i.d., albuterol, lisinopril 5 mg daily, Zocor once a day, Lasix 80 mg b.i.d., Singulair and Lopressor 12.5 mg daily. Physical examination at present reveals a 51-year-old female who is a morbidly obese, does not appear to be in any acute distress at present. Patient is afebrile. Heart rate is 105 per minute. Blood pressure is 140/57 mmHg. HEENT examination is negative. Neck is supple. Jugular venous pressure is not elevated. Both the carotid pulses are felt. There is no bruit. Chest is symmetrical. HEART: The PMI is not felt. First and second heart sounds are normal. Lung examination reveals a few scattered wheezes. Abdomen is soft. EXTREMITIES: There is a trace pedal edema. Chest x-ray does not show any questionable pulmonary venous congestion. This patient's proBNP level is only 114. Electrolytes are normal, creatinine is 0.76. Patient had an echocardiogram done in July which revealed normal left ventricular systolic function. Pulmonary artery systolic pressure is 40 mmHg which is only borderline elevated. There was no evidence of any significant left atrial enlargement to suggest chronic diastolic dysfunction. FINAL IMPRESSION: 1. This patient's symptoms of shortness of breath, most likely appear to be acute exacerbation of underlying COPD and sleep apnea. Patient's pedal edema probably secondary to venous insufficiency. 2. Patient's BNP level is 114 and it is not suggestive of any left ventricular failure or significant right-sided heart failure. Patient's echocardiogram done in July revealed normal left ventricular systolic function. There was no evidence of any significant left atrial enlargement to suggest chronic diastolic dysfunction. I would recommend to continue the patient on current medications.
[2016-10-06 16:34] LABS: Glucose,Whole Blood 182 mg/dL (75-99)
[2016-10-06] MEDS: methylPREDNISolone SOD SUCCI 40 MG/ML 1 ML VIAL IV SCH (17:38)
[2016-10-06 18:19] LABS: Glucose,Whole Blood 184 mg/dL (75-99)
[2016-10-06] MEDS: BUTA/APAP/CAF/COD 50-325-40-30 CAP PO PRN (19:56)
[2016-10-06] MEDS: ATORVASTATIN 20 MG TAB PO SCH (20:00)
[2016-10-06] MEDS: MONTELUKAST 10 MG TAB PO SCH (20:01)
[2016-10-06] MEDS: MELATONIN 3 MG TABLET PO SCH (20:01)
[2016-10-06 21:00] LABS: Glucose,Whole Blood 102 mg/dL (75-99)
[2016-10-06 21:41] LABS: Glucose,Whole Blood 124 mg/dL (75-99)
--- NOTE | 2016-10-06 21:46 | PN ---
DATE OF SERVICE: 10/06/2016 This 51-year-old woman who was admitted with shortness of breath, multifactorial is being closely monitored at this time. The CT was done today which showed . The patient also seen by cardiology as well and has no evidence of CHF per cardiology. No fever. Occasional cough is reported. On exam alert and oriented x3. Pulse is 105, blood pressure 140/52. Respiratory rate 22, temperature 97 degrees, pulse ox 93% on 4 L. HEENT: Conjunctivae normal. NECK: No jugular venous distention. CARDIOVASCULAR: S1, S2 muffled. RESPIRATORY: Breath sounds diminished at the bases, a few scattered rhonchi and crackles. ABDOMEN: Soft. Nontender. LEGS: No edema. No swelling. No focal deficits. Labs are CBC within normal limits. Accu-Cheks are noted. ASSESSMENT: 1. Shortness of breath, possible chronic obstructive pulmonary disease, acute exacerbation, with acute purulent tracheobronchitis with acute hypoxic hypercarbic respiratory failure. 2. No evidence of congestive heart failure per cardiology. 3. History of asthma, chronic obstructive pulmonary disease. 4. History of chest pain, musculoskeletal. 5. History of diabetes type 2. 6. Super morbid obesity with body mass index of 54.9. 7. Hypertension. 8. Hyperlipidemia. 9. History of degenerative joint disease. 10. History of pneumonia. 11. History of sleep apnea. 12. History of syncope. 13. History of gout. 14. History of peripheral neuropathy. 15. History of chronic hypoxic respiratory failure, on home oxygen 2 liters nasal cannula. 16. History of claustrophobia. 17. Remote history nicotine dependence. 18. History of lung nodules. 19. FULL CODE. RECOMMENDATIONS AND DISCUSSION: I recommend to continue current medications, continue with monitoring, symptomatic treatment. Otherwise, at this time, we will monitor the patient closely. Continue the current medications. Continue with symptomatic treatment. Continue with bronchodilators. Closely follow with pulmonary. Continue with the monitoring, symptomatic treatment with bronchodilators. Closely follow. Further recommendations to follow. MTDD
[2016-10-06] MEDS: guaiFENesin SYRUP 100MG/5ML 200 MG/10 ML CUP PO PRN (21:59)
[2016-10-06] MEDS: ALPRAZolam 0.25 MG TAB PO PRN (21:59)
[2016-10-06 22:29] LABS: Glucose,Whole Blood 235 mg/dL (75-99)
[2016-10-07 00:30] LABS: Glucose,Whole Blood 268 mg/dL (75-99)
[2016-10-07] MEDS: HEPARIN SODIUM,PORCINE 5,000 UNIT/ML 1 ML VIAL SQ SCH ×3 (00:35→15:41)
[2016-10-07] MEDS: methylPREDNISolone SOD SUCCI 40 MG/ML 1 ML VIAL IV SCH ×4 (00:35→23:08)
[2016-10-07 02:11] LABS: Glucose,Whole Blood 171 mg/dL (75-99)
[2016-10-07 04:15] LABS: Glucose,Whole Blood 122 mg/dL (75-99)
[2016-10-07 05:51] LABS: Glucose,Whole Blood 150 mg/dL (75-99)
[2016-10-07] MEDS: BUTA/APAP/CAF/COD 50-325-40-30 CAP PO PRN (05:51)
[2016-10-07 07:40] LABS: Glucose,Whole Blood 151 mg/dL (75-99)
[2016-10-07] MEDS: FORMOTEROL FUMARATE 20 MCG/2 ML NEBU INHALATION SCH ×2 (07:49→19:56)
[2016-10-07] MEDS: BUDESONIDE 1 MG/2 ML NEBU INHALATION SCH ×2 (07:49→19:56)
[2016-10-07] MEDS: IPRATROPIUM-ALBUTEROL 3 ML NEB INHALATION SCH ×4 (07:49→19:56)
[2016-10-07 08:52] LABS: Basophils % (A) 0 %; CH 29.3; Eosinophils % (A) 0 %; HDW 2.31; HGB 13.1 gm/dL (11.4-16.0); Hypochromasia Slight; Luc # (Auto) 0.08; Luc % (Auto) 1; Lymphocytes # (A) 0.8 k/uL (1.0-4.8); Lymphocytes % (A) 11 %; MCH 29.6 pg (25.0-35.0); MCHC 31.2 g/dL (31.0-37.0); MCV 95.1 fL (80.0-100.0); Mean Platelet Volume 7.7; Monocytes # (A) 0.3 k/uL (0-1.0); Monocytes % (A) 4 %; Neutrophils % (A) 83 %; RBC 4.42 m/uL (3.80-5.40); RDW 13.2 % (11.5-15.5); WBC 7.3 k/uL (3.8-10.6); WBC (Perox) 7.37
[2016-10-07 08:56] LABS: Anion Gap 9 mmol/L; Calcium 9.4 mg/dL (8.4-10.2); Carbon Dioxide 37 mmol/L (22-30); Chloride 97 mmol/L (98-107); Glucose 170 mg/dL (74-99); Non-African American GFR(MDRD) >60 (>60 ml/min/1.73 sqM); Sodium 143 mmol/L (137-145)
[2016-10-07 09:06] LABS: Blood Urea Nitrogen 34 mg/dL (7-17); Potassium 5.1 mmol/L (3.5-5.1)
[2016-10-07] MEDS: LISINOPRIL 5 MG TAB PO SCH (09:46)
[2016-10-07] MEDS: GABAPENTIN 300 MG CAP PO SCH ×2 (09:46→20:08)
[2016-10-07] MEDS: PREGABALIN 100 MG CAP PO SCH ×2 (09:46→20:08)
[2016-10-07] MEDS: FUROSEMIDE 10 MG/ML 10 ML VIAL IV SCH (09:46)
[2016-10-07] MEDS: ALLOPURINOL 100 MG TAB PO SCH (09:46)
[2016-10-07] MEDS: FAMOTIDINE 20 MG TAB PO SCH (09:46)
[2016-10-07] MEDS: METOPROLOL TARTRATE 12.5 MG TAB PO SCH (09:46)
[2016-10-07] MEDS: INSULIN LISPRO (humaLOG) 300 UNIT/3 ML VIAL SQ SCH ×3 (09:47→18:12)
[2016-10-07] MEDS: metFORMIN 500 MG TAB PO SCH ×2 (09:47→18:13)
[2016-10-07 09:49] LABS: Glucose,Whole Blood 258 mg/dL (75-99)
[2016-10-07] MEDS: POTASSIUM CHLORIDE ER 20 MEQ TAB.ER PO SCH (10:53)
[2016-10-07] MEDS: TETRAHYDROZOLINE 0.05% OPHTH DROPS 15 ML BTL BOTH EYES SCH ×4 (10:53→21:24)
[2016-10-07] MEDS: BENZOCAINE/MENTHOL LOZENG 1 EACH LOZENGE MUCOUS MEM PRN (11:02)
[2016-10-07] MEDS: FERROUS SULFATE 325 MG TAB PO SCH (11:03)
[2016-10-07] MEDS: INSULIN GLARGINE 100 UNIT/ML 10 ML VIAL SQ SCH (11:03)
[2016-10-07] MEDS: KETOTIFEN 0.025% OPHTH DROPS 5 ML BTL BOTH EYES SCH ×2 (11:05→21:24)
[2016-10-07 12:32] LABS: Glucose,Whole Blood 92 mg/dL (75-99)
[2016-10-07] MEDS: LEVOFLOXACIN 750MG-D5W PMX 750 MG in DEXTROSE/WATER 1 150ML.BAG IVPB SCH (12:52)
[2016-10-07 13:48] LABS: Glucose,Whole Blood 161 mg/dL (75-99)
--- NOTE | 2016-10-07 14:55 | PN ---
Patient is a very pleasant 51-year-old female who came in with complaints of respiratory failure, shortness of breath and patient has multiple admissions in the past. Patient's respiratory issue is multifactorial. Patient is morbidly obese disease with restrictive lung disease, severe obstructive sleep apnea and obesity hypoventilation syndrome, because of which simple bronchitis can make her really sick. The patient does have bronchitis with Serratia for which I am starting her on levofloxacin as beta-lactams are not really great medications for Serratia marcescens because of inducible beta-lactamase property of Serratia and again the Serratia is resistant to a lot of beta lactams anyways. Patient will be on 750 mg daily of levofloxacin and patient's blood pressure is on the low side and patient is on fluid restriction. Patient does not have any significant systolic dysfunction. I will let her drink anomaly and Lasix will be switched to oral Lasix. There is no evidence of pneumonia or CHF on the CT. Patient is having severe cough and rhonchus breath sounds. REVIEW OF SYSTEMS: RESPIRATORY: No significant improvement compared to admission. CARDIOVASCULAR: No chest pain, no orthopnea, no PND, no palpitations. GASTROINTESTINAL: No diarrhea, nausea or vomiting. No abdominal pain. Normoactive bowel sounds. NEUROLOGIC: No headaches, no weakness, no numbness. Medications were reviewed. PHYSICAL EXAMINATION: VITAL SIGNS: Temperature 97.8, pulse of 71, respiratory rate of 22, blood pressure 123/59. Saturating at 95% on 4 L of O2 by nasal cannula. RESPIRATORY EXAMINATION: Rhonchus breath sounds. No wheezing was appreciated. GENERAL: The patient is alert and oriented x3, not in any acute distress. Well developed, well nourished. HEENT: Pupils are round and equally reacting to light. EOMI. No scleral icterus. No conjunctival pallor. Normocephalic, atraumatic. No pharyngeal erythema. No thyromegaly. CARDIOVASCULAR: S1 and S2 present. No murmurs, rubs, or gallops. ABDOMEN: Soft, nontender, nondistended, normoactive bowel sounds. No palpable organomegaly. MUSCULOSKELETAL: No joint swelling or deformity. EXTREMITIES: No cyanosis, clubbing, or pedal edema. NEUROLOGICAL: Gross neurological examination did not reveal any focal deficits. SKIN: No rashes. ASSESSMENT AND PLAN: 1. Shortness of breath secondary to severe bronchitis. Patient has chronic obstructive pulmonary disease with acute exacerbation. Patient has acute on chronic hypercapnic respiratory failure secondary to chronic obstructive pulmonary disease. 2. Restrictive lung disease. 3. Obstructive sleep apnea. 4. Type 2 diabetes mellitus. 5. Morbid obesity. 6. Obesity hypoventilation syndrome. 7. Hypertension. 8. Hyperlipidemia. 9. Possible chronic diastolic dysfunction, mostly right-sided heart failure from possibility of pulmonary hypertension. 10. Degenerative disc disease. 11. History of lung nodules which is being managed by Pulmonary as an outpatient. Patient received radiation therapy in the past. Plan is to initiate on antibiotics. Continue with systemic steroids, inhalational treatments. My suspicion is low that CHF is contributing to her symptoms.
[2016-10-07] MEDS: FUROSEMIDE 80 MG TAB PO SCH (15:40)
--- NOTE | 2016-10-07 15:53 | P.PN ---
Subjective Principal diagnosis: Acute exacerbation of CHF Patient seen and examined. Patient states her breathing is a little bit better. She states that she is feeling a little bit better overall. Discussion is had regarding the patient's medical noncompliance and possibility of depression. The patient states that she might be depressed. She states she does not like being in the hospital but is noncompliant with her diet and medications and CPAP when she goes home. Objective - Vital Signs Vital signs: Vital Signs Temp 97.8 F 10/07/16 07:00 Pulse 92 10/07/16 12:26 Resp 22 10/07/16 07:00 BP 123/59 10/07/16 07:00 Pulse Ox 95 10/07/16 07:00 Intake & Output 10/06/16 10/07/16 10/07/16 18:59 06:59 18:59 Intake Total 561.317 56.000 51.200 Balance 561.317 56.000 51.200 Weight 171 kg Intake: Intake, IV Titration 81.317 56.000 51.200 Amount Insulin Regular 100 unit 81.317 56.000 51.200 In Sodium Chloride 0.9% 100 ml @ Titrate IV .Q0M [facility] Rx#:[id number] Oral 480 Other: Voiding Method Toilet # Voids 2 - Exam Gen.: Patient is alert and oriented 3, no acute distress, morbidly obese Cardiovascular: Regular rate and rhythm, S1/S2 Lungs: Diminished breath sounds bilaterally with scattered crackles Abdomen: Soft nontender nondistended positive bowel sounds Extremities: 2-3+ pitting edema - Labs CBC & Chem 7: 10/07/16 08:28 10/07/16 08:28 Labs: Abnormal Lab Results - Last 24 Hours (Table) 10/06/16 10/06/16 10/06/16 Range/Units 16:18 18:16 20:18 Lymphocytes # (1.0-4.8) k/uL Chloride (98-107) mmol/L Carbon Dioxide (22-30) mmol/L BUN (7-17) mg/dL Glucose (74-99) mg/dL POC Glucose (mg/dL) 182 H 184 H 102 H (75-99) mg/dL 10/06/16 10/06/16 10/07/16 Range/Units 21:31 22:25 00:21 Lymphocytes # (1.0-4.8) k/uL Chloride (98-107) mmol/L Carbon Dioxide (22-30) mmol/L BUN (7-17) mg/dL Glucose (74-99) mg/dL POC Glucose (mg/dL) 124 H 235 H 268 H (75-99) mg/dL 10/07/16 10/07/16 10/07/16 Range/Units 02:02 04:02 05:45 Lymphocytes # (1.0-4.8) k/uL Chloride (98-107) mmol/L Carbon Dioxide (22-30) mmol/L BUN (7-17) mg/dL Glucose (74-99) mg/dL POC Glucose (mg/dL) 171 H 122 H 150 H (75-99) mg/dL 10/07/16 10/07/16 10/07/16 Range/Units 07:32 08:28 08:28 Lymphocytes # 0.8 L (1.0-4.8) k/uL Chloride 97 L (98-107) mmol/L Carbon Dioxide 37 H (22-30) mmol/L BUN 34 H (7-17) mg/dL Glucose 170 H (74-99) mg/dL POC Glucose (mg/dL) 151 H (75-99) mg/dL 10/07/16 10/07/16 Range/Units 09:44 13:45 Lymphocytes # (1.0-4.8) k/uL Chloride (98-107) mmol/L Carbon Dioxide (22-30) mmol/L BUN (7-17) mg/dL Glucose (74-99) mg/dL POC Glucose (mg/dL) 258 H 161 H (75-99) mg/dL Microbiology - Last 24 Hours (Table) 10/05/16 07:45 Gram Stain - Final Sputum Sputum Culture - Final Serratia marcescens Assessment and Plan Plan: Acute on chronic hypoxic respiratory failure Acute exacerbation of COPD and asthma, severe persistent Hypercarbia and neck signed tracheobronchitis Pulmonary vascular congestion Pulmonary hypertension with cor pulmonale Morbid obesity highly suspect obstructive sleep apnea/obesity hypoventilation syndrome Mild to moderate pulmonary hypertension with an RVSP of 42 mmHg Lung nodule which is PET positive consistent with cancer, patient undergoing radiation therapy Diabetes mellitus type 2 uncontrolled Dyslipidemia Hypertension Hypothyroidism Medical noncompliance Noncompliance with home fluid restriction Clinical depression O2 to maintain saturation greater than or equal to 88% Bronchodilators and Pulmicort Diuresis Singulair I's and O's and daily weights Fluid restriction, patient is encouraged to be compliant Blood sugar control Steroid taper Outpatient discussion regarding pulmonary rehabilitation GI and DVT prophylaxis Patient is encouraged to proceed with outpatient PSG and subsequent titration study, her recurrent heart failure is directly related to her underlying uncontrolled sleep apnea Patient has missed multiple office appointments. Her next appointment was scheduled for 10/06/16. This will be rescheduled prior to discharge. CT chest shows chronic changes, no acute pneumonia Consult psych for depression and concern for self-harm by means of medical noncompliance Will try patient on CPAP tonight, will still need outpatient testing
[2016-10-07 16:15] LABS: Glucose,Whole Blood 122 mg/dL (75-99)
[2016-10-07 17:31] LABS: Glucose,Whole Blood 110 mg/dL (75-99)
[2016-10-07 18:11] LABS: Glucose,Whole Blood 125 mg/dL (75-99)
[2016-10-07] MEDS: traMADol 50 MG TAB PO PRN (18:13)
[2016-10-07] MEDS: INSULIN REGULAR 100 UNIT in SODIUM CHLORIDE 0.9% 100 ML IV SCH (19:02)
[2016-10-07 19:11] LABS: Glucose,Whole Blood 267 mg/dL (75-99)
[2016-10-07] MEDS: ATORVASTATIN 20 MG TAB PO SCH (20:07)
[2016-10-07] MEDS: MELATONIN 3 MG TABLET PO SCH (20:08)
[2016-10-07] MEDS: MONTELUKAST 10 MG TAB PO SCH (20:08)
[2016-10-07 21:19] LABS: Glucose,Whole Blood 160 mg/dL (75-99)
[2016-10-07] MEDS: guaiFENesin 600 MG TABLET.ER PO SCH (21:24)
[2016-10-07] MEDS: guaiFENesin SYRUP 100MG/5ML 200 MG/10 ML CUP PO PRN (23:06)
[2016-10-07 23:07] LABS: Glucose,Whole Blood 222 mg/dL (75-99)
[2016-10-08] MEDS: HEPARIN SODIUM,PORCINE 5,000 UNIT/ML 1 ML VIAL SQ SCH ×4 (00:15→23:09)
[2016-10-08 01:02] LABS: Glucose,Whole Blood 131 mg/dL (75-99)
[2016-10-08] MEDS: BUTA/APAP/CAF/COD 50-325-40-30 CAP PO PRN ×3 (02:25→15:57)
[2016-10-08 03:19] LABS: Glucose,Whole Blood 125 mg/dL (75-99)
[2016-10-08 04:16] LABS: Glucose,Whole Blood 165 mg/dL (75-99)
[2016-10-08 06:13] LABS: Glucose,Whole Blood 179 mg/dL (75-99)
[2016-10-08 08:00] LABS: Glucose,Whole Blood 97 mg/dL (75-99)
[2016-10-08] MEDS: GABAPENTIN 300 MG CAP PO SCH ×2 (08:25→20:22)
[2016-10-08] MEDS: FAMOTIDINE 20 MG TAB PO SCH (08:25)
[2016-10-08] MEDS: PREGABALIN 100 MG CAP PO SCH ×2 (08:25→20:22)
[2016-10-08] MEDS: METOPROLOL TARTRATE 12.5 MG TAB PO SCH (08:25)
[2016-10-08] MEDS: FUROSEMIDE 80 MG TAB PO SCH ×2 (08:25→16:46)
[2016-10-08] MEDS: ALLOPURINOL 100 MG TAB PO SCH (08:25)
[2016-10-08] MEDS: guaiFENesin 600 MG TABLET.ER PO SCH ×2 (08:25→20:22)
[2016-10-08] MEDS: metFORMIN 500 MG TAB PO SCH ×2 (08:25→16:46)
[2016-10-08] MEDS: methylPREDNISolone SOD SUCCI 40 MG/ML 1 ML VIAL IV SCH ×3 (08:26→23:09)
[2016-10-08] MEDS: INSULIN LISPRO (humaLOG) 300 UNIT/3 ML VIAL SQ SCH ×3 (08:26→18:34)
[2016-10-08] MEDS: KETOTIFEN 0.025% OPHTH DROPS 5 ML BTL BOTH EYES SCH ×2 (08:26→20:22)
[2016-10-08] MEDS: INSULIN GLARGINE 100 UNIT/ML 10 ML VIAL SQ SCH (08:26)
[2016-10-08] MEDS: TETRAHYDROZOLINE 0.05% OPHTH DROPS 15 ML BTL BOTH EYES SCH ×4 (08:26→20:22)
[2016-10-08] MEDS: FERROUS SULFATE 325 MG TAB PO SCH (08:27)
[2016-10-08] MEDS: ALPRAZolam 0.25 MG TAB PO PRN (08:27)
[2016-10-08] MEDS: FORMOTEROL FUMARATE 20 MCG/2 ML NEBU INHALATION SCH ×2 (08:43→19:55)
[2016-10-08] MEDS: IPRATROPIUM-ALBUTEROL 3 ML NEB INHALATION SCH ×4 (08:43→19:55)
[2016-10-08] MEDS: BUDESONIDE 1 MG/2 ML NEBU INHALATION SCH ×2 (08:43→19:55)
[2016-10-08 09:11] LABS: Glucose,Whole Blood 190 mg/dL (75-99)
[2016-10-08 09:46] LABS: Basophils % (A) 0 %; CH 29.4; CHCM 30.9; Eosinophils % (A) 0 %; HDW 2.36; Hypochromasia Slight; Luc # (Auto) 0.12; Luc % (Auto) 2; Lymphocytes # (A) 0.9 k/uL (1.0-4.8); Lymphocytes % (A) 15 %; MCH 29.4 pg (25.0-35.0); MCHC 30.8 g/dL (31.0-37.0); MCV 95.4 fL (80.0-100.0); Mean Platelet Volume 7.5; Monocytes # (A) 0.4 k/uL (0-1.0); Monocytes % (A) 6 %; Neutrophils # (A) 4.5 k/uL (1.3-7.7); Neutrophils % (A) 77 %; RBC 4.41 m/uL (3.80-5.40); WBC 5.8 k/uL (3.8-10.6); WBC (Perox) 5.73
[2016-10-08 10:05] LABS: Blood Urea Nitrogen 31 mg/dL (7-17); Calcium 9.5 mg/dL (8.4-10.2); Chloride 93 mmol/L (98-107); Glucose 187 mg/dL (74-99); Non-African American GFR(MDRD) >60 (>60 ml/min/1.73 sqM); Potassium 4.5 mmol/L (3.5-5.1); Sodium 142 mmol/L (137-145)
[2016-10-08 10:12] LABS: Anion Gap 10 mmol/L
[2016-10-08 10:15] LABS: Carbon Dioxide 39 mmol/L (22-30)
[2016-10-08 11:14] LABS: Glucose,Whole Blood 90 mg/dL (75-99)
--- NOTE | 2016-10-08 11:22 | PN ---
DATE OF SERVICE: 10/08/2016 The patient is a 51-year-old morbidly obese female who is sitting up at the bedside, just finishing up a respiratory treatment. Is awake and alert, does not feel any less short of breath today. Continues to be very short of breath with any exertion. Vital signs are stable. The patient is in no acute distress. ON PHYSICAL EXAM: VITAL SIGNS: Temp is 99.0, heart rate 76, respiratory rate 22, blood pressure is 123/70, O2 sats 93% on 4 L O2 via nasal cannula. HEENT: Head is normocephalic, atraumatic. NECK: Supple. Trachea is midline. LUNGS: With decreased breath sounds and an end expiratory wheeze. HEART: S1 and S2 are heard. Not tachycardic. ABDOMEN: Soft. Bowel sounds are heard. EXTREMITIES: With 2+ edema bilaterally. NEUROLOGIC: The patient is awake, alert. LABS: No new labs to review. No new imaging to review. IMPRESSION: 1. Acute on chronic hypoxic respiratory failure. 2. Acute exacerbation of chronic obstructive pulmonary disease and asthma, severe persistent. 3. Tracheobronchitis. 4. Pulmonary vascular congestion. 5. Pulmonary hypertension with cor pulmonale. 6. Morbid obesity highly suspect obstructive sleep apnea, obesity hypoventilation syndrome. 7. [id number] pulmonary hypertension. 8. Lung nodule which is PET positive consistent with cancer currently undergoing radiation. 9. Diabetes mellitus type 2, uncontrolled. 10. Dyslipidemia. 11. Hypertension. 12. Hypothyroidism. 13. Medical noncompliance. 14. Clinical depression. PLAN: Continue current medications, which have been reviewed. Continue oxygen to maintain saturations greater than or equal to 88%. Continue bronchodilators and aerosolized steroids. Continue with diuresis and leukotriene inhibitors. Continue fluid restriction. Blood sugar control, steroid taper. Continue GI and DVT prophylaxis. Will follow up on any recommendations per psych to evaluate for depression. Continue CPAP at night if patient tolerates. Will follow the patient closely with you, making further changes as necessary.
[2016-10-08 12:28] LABS: Glucose,Whole Blood 72 mg/dL (75-99)
[2016-10-08 13:07] LABS: Glucose,Whole Blood 93 mg/dL (75-99)
[2016-10-08] MEDS: LEVOFLOXACIN 750MG-D5W PMX 750 MG in DEXTROSE/WATER 1 150ML.BAG IVPB SCH (13:09)
[2016-10-08 13:57] LABS: Glucose,Whole Blood 188 mg/dL (75-99)
--- NOTE | 2016-10-08 15:01 | PN ---
Patient is a 51-year-old female admitted with severe bronchitis and patient came in with ( ). Patient has acute on chronic respiratory failure secondary to chronic obstructive pulmonary disease exacerbation. Patient has severe ( ) with bronchitis with Serratia for which patient is on Levofloxacin 750 mg daily. Psychiatry was consulted by pulmonary as they have concern about severe depression, although patient denied any suicidal ideations to me. REVIEW OF SYSTEMS: CARDIOVASCULAR: No chest pain, no orthopnea, no PND, no palpitations. PULMONARY: no significant improvement compared to yesterday. GASTROINTESTINAL: No diarrhea, nausea or vomiting. No abdominal pain. Normoactive bowel sounds. NEUROLOGIC: No headaches, no weakness, no numbness. Medications were reviewed. PHYSICAL EXAMINATION: VITAL SIGNS: Temperature 99.0, pulse of 76, respiratory of 22, blood pressure is 133/70. Saturating at 93% on 4 L O2 by nasal cannula oxygen. RESPIRATORY EXAMINATION: Rhonchus breath sounds. No wheezing was appreciated. GENERAL: The patient is alert and oriented x3, not in any acute distress. Well developed, well nourished. HEENT: Pupils are round and equally reacting to light. EOMI. No scleral icterus. No conjunctival pallor. Normocephalic, atraumatic. No pharyngeal erythema. No thyromegaly. CARDIOVASCULAR: S1 and S2 present. No murmurs, rubs, or gallops. ABDOMEN: Soft, nontender, nondistended, normoactive bowel sounds. No palpable organomegaly. MUSCULOSKELETAL: No joint swelling or deformity. EXTREMITIES: No cyanosis, clubbing, or pedal edema. NEUROLOGICAL: Gross neurological examination did not reveal any focal deficits. SKIN: No rashes. LABORATORY DATA: no significant change compared to yesterday. ASSESSMENT AND PLAN: 1. Shortness of breath and acute on chronic hypercapnic respiratory failure secondary to chronic obstructive pulmonary disease exacerbation. Patient does have some restrictive lung disease as well. 2. Obstructive sleep apnea. 3. Noncompliance with medication recommendations. 4. Depression. 5. Morbid obesity. 6. Type 2 diabetes mellitus. 7. Obesity hypoventilation syndrome. 8. Hyperlipidemia. 9. Severe tracheobronchitis with Serratia Marcescens and possible chronic diastolic dysfunction and right-sided heart failure. Patient is not hypovolemic at this point of time. Patient will be switched to her home dose of Lasix. 10. History of lung nodules for which pulmonary is treating her as an outpatient. PLAN: Continue with antibiotics. Continue systemic steroids. Continue with supportive therapy.
--- NOTE | 2016-10-08 16:17 | CONS ---
DATE OF CONSULTATION: REASON FOR CONSULTATION: Depression. HISTORY OF PRESENT ILLNESS: The patient is a 51-year-old female who presented to the emergency room with complaint of shortness of breath. Patient seems noncompliant with medication as prescribed. Also she has been noncompliant with her fluid restriction and the attending wants the patient to be evaluated for possible depression. Patient stated that she has been stressed out for the last 6 months since she moved in with her friend to live with her. Her friend has 5 children, all of them under age 12, and patient said, "She doesn't take any money from me, but I need to help her raise the children, especially since she is working full-time." Also she stated that she used to live with one of her children and raising the grandchildren, but now she is not able to see the grandchildren as often as she wants. She denied any sleeping or appetite problem. She stated that sometimes she gets so overwhelmed with the children's noise, but she denied feeling hopeless, helpless or a failure, or any crying episodes. Even she said, "I'm not sure why I need to talk with a psychiatrist." Patient stated that recently she has been on Xanax as needed for stress, but she denied that she has been using it. PAST PSYCHIATRIC HISTORY: There is no previous psychiatric history. MEDICAL HISTORY: 1. Asthma. 2. Chronic artery disease. 3. COPD. 4. Diabetes. 5. Hyperlipidemia. 6. Hypertension. 7. Neurogenic disorder. 8. Sleep apnea. 9. Arthritis. 10. Thyroid disorder. ALLERGIES: NO DRUG ALLERGIES. HER HOME MEDICATIONS: 1. Pepcid. 2. Loratadine. 3. Ferrous sulfate. 4. Metformin. 5. Ventolin inhaler. 6. Neurontin 300 twice a day. 7. Zocor 40 mg at bedtime. 8. Lasix. 9. Lyrica. 10. Insulin. 11. Lopressor. 12. Singulair. FAMILY HISTORY OF PSYCHIATRIC ILLNESS: Patient is not aware of any mental illness in the family. HISTORY OF SUBSTANCE ABUSE: She stated that she used to drink in her early 20s. BRIEF SOCIAL HISTORY: Patient has been on Social Security Disability since 2009. She was for 15 years; ended by divorce in 2003; and she has 4 grownup children and 7 grandchildren. She was living with the youngest son and helping him to raise his grandchildren, but she decided to move in with a friend 6 months ago. She denied any legal program. MENTAL STATUS EXAMINATION: Morbidly obese white female who is sitting eating her lunch. Grooming is marginal. She gave good eye contact. Speech is spontaneous, coherent. Thought process is linear. She denied any suicidal or homicidal ideation. She denied any psychotic feature. She did rate her anxiety and depression both 5/10, 10 being the worst. Her cognitive function is grossly intact. Insight and judgment are fair. DIAGNOSIS: Adjustment disorder with mixed emotion. PLAN: Patient did agree to start low dose of SSRI. As the patient is not suicidal or homicidal, she does not require any inpatient psychiatric hospitalization. If she is medically cleared, please refer her to outpatient counseling. Thank you for this consult.
[2016-10-08 16:18] LABS: Glucose,Whole Blood 197 mg/dL (75-99)
[2016-10-08 18:26] LABS: Glucose,Whole Blood 142 mg/dL (75-99)
[2016-10-08 20:05] LABS: Glucose,Whole Blood 180 mg/dL (75-99)
[2016-10-08] MEDS: INSULIN REGULAR 100 UNIT in SODIUM CHLORIDE 0.9% 100 ML IV SCH (20:19)
[2016-10-08] MEDS: MONTELUKAST 10 MG TAB PO SCH (20:22)
[2016-10-08] MEDS: ATORVASTATIN 20 MG TAB PO SCH (20:22)
[2016-10-08] MEDS: MELATONIN 3 MG TABLET PO SCH (20:22)
[2016-10-08 22:24] LABS: Glucose,Whole Blood 123 mg/dL (75-99)
[2016-10-08] MEDS: guaiFENesin SYRUP 100MG/5ML 200 MG/10 ML CUP PO PRN (22:39)
[2016-10-08 23:20] LABS: Glucose,Whole Blood 167 mg/dL (75-99)
[2016-10-09 01:39] LABS: Glucose,Whole Blood 185 mg/dL (75-99)
[2016-10-09 03:38] LABS: Glucose,Whole Blood 134 mg/dL (75-99)
[2016-10-09 04:31] LABS: Glucose,Whole Blood 122 mg/dL (75-99)
[2016-10-09 05:37] LABS: Glucose,Whole Blood 125 mg/dL (75-99)
[2016-10-09 06:31] LABS: Glucose,Whole Blood 132 mg/dL (75-99)
[2016-10-09] MEDS: BUTA/APAP/CAF/COD 50-325-40-30 CAP PO PRN (06:52)
[2016-10-09 07:49] LABS: Glucose,Whole Blood 153 mg/dL (75-99)
[2016-10-09] MEDS: FORMOTEROL FUMARATE 20 MCG/2 ML NEBU INHALATION SCH ×2 (07:56→19:21)
[2016-10-09] MEDS: IPRATROPIUM-ALBUTEROL 3 ML NEB INHALATION SCH ×4 (07:56→19:21)
[2016-10-09] MEDS: BUDESONIDE 1 MG/2 ML NEBU INHALATION SCH ×2 (07:56→19:21)
[2016-10-09 07:58] LABS: Basophils % (A) 0 %; CH 29.7; CHCM 31.7; Eosinophils % (A) 0 %; HCT 43.4 % (34.0-46.0); HDW 2.42; HGB 13.6 gm/dL (11.4-16.0); Luc % (Auto) 2; Lymphocytes # (A) 0.5 k/uL (1.0-4.8); Lymphocytes % (A) 9 %; MCH 29.5 pg (25.0-35.0); MCHC 31.3 g/dL (31.0-37.0); MCV 94.2 fL (80.0-100.0); Mean Platelet Volume 7.7; Monocytes # (A) 0.3 k/uL (0-1.0); Monocytes % (A) 6 %; Neutrophils # (A) 4.8 k/uL (1.3-7.7); Neutrophils % (A) 84 %; RDW 13.1 % (11.5-15.5); WBC 5.7 k/uL (3.8-10.6); WBC (Perox) 6.19
[2016-10-09] MEDS: INSULIN LISPRO (humaLOG) 300 UNIT/3 ML VIAL SQ SCH ×6 (08:07→20:36)
[2016-10-09] MEDS: METOPROLOL TARTRATE 12.5 MG TAB PO SCH (08:09)
[2016-10-09] MEDS: ALLOPURINOL 100 MG TAB PO SCH (08:09)
[2016-10-09] MEDS: PREGABALIN 100 MG CAP PO SCH ×2 (08:09→20:34)
[2016-10-09] MEDS: ESCITALOPRAM 10 MG TAB PO SCH (08:10)
[2016-10-09] MEDS: metFORMIN 500 MG TAB PO SCH ×2 (08:10→17:55)
[2016-10-09] MEDS: guaiFENesin 600 MG TABLET.ER PO SCH ×2 (08:10→20:34)
[2016-10-09] MEDS: FUROSEMIDE 80 MG TAB PO SCH ×2 (08:10→15:21)
[2016-10-09] MEDS: methylPREDNISolone SOD SUCCI 40 MG/ML 1 ML VIAL IV SCH (08:10)
[2016-10-09] MEDS: GABAPENTIN 300 MG CAP PO SCH ×2 (08:11→20:34)
[2016-10-09] MEDS: FERROUS SULFATE 325 MG TAB PO SCH (08:11)
[2016-10-09] MEDS: TETRAHYDROZOLINE 0.05% OPHTH DROPS 15 ML BTL BOTH EYES SCH ×4 (08:11→20:35)
[2016-10-09] MEDS: HEPARIN SODIUM,PORCINE 5,000 UNIT/ML 1 ML VIAL SQ SCH ×3 (08:11→23:03)
[2016-10-09] MEDS: FAMOTIDINE 20 MG TAB PO SCH (08:11)
[2016-10-09] MEDS: KETOTIFEN 0.025% OPHTH DROPS 5 ML BTL BOTH EYES SCH ×2 (08:12→20:34)
[2016-10-09 08:23] LABS: Blood Urea Nitrogen 34 mg/dL (7-17); Calcium 9.5 mg/dL (8.4-10.2); Chloride 93 mmol/L (98-107); Glucose 154 mg/dL (74-99); Non-African American GFR(MDRD) >60 (>60 ml/min/1.73 sqM); Potassium 4.9 mmol/L (3.5-5.1); Sodium 142 mmol/L (137-145)
[2016-10-09 08:30] LABS: Anion Gap 8 mmol/L
[2016-10-09 08:36] LABS: Carbon Dioxide 41 mmol/L (22-30)
[2016-10-09 10:05] LABS: Glucose,Whole Blood 289 mg/dL (75-99)
[2016-10-09] MEDS: INSULIN GLARGINE 100 UNIT/ML 10 ML VIAL SQ SCH ×2 (10:59→11:12)
[2016-10-09 12:15] LABS: Glucose,Whole Blood 185 mg/dL (75-99)
[2016-10-09 12:39] LABS: Hemoglobin A1C 9.9 % (4.2-6.1)
--- NOTE | 2016-10-09 12:39 | PN ---
( ) Patient is a 51-year-old female admitted with severe bronchitis and patient came in with ( ). Patient has acute on chronic respiratory failure secondary to chronic obstructive pulmonary disease exacerbation. Patient has severe ( ) with bronchitis with Serratia for which patient is on Levofloxacin 750 mg daily. Psychiatry was consulted by pulmonary as they have concern about severe depression, although patient denied any suicidal ideations to me. REVIEW OF SYSTEMS: CARDIOVASCULAR: No chest pain, no orthopnea, no PND, no palpitations. PULMONARY: no significant improvement compared to yesterday. GASTROINTESTINAL: No diarrhea, nausea or vomiting. No abdominal pain. Normoactive bowel sounds. NEUROLOGIC: No headaches, no weakness, no numbness. Medications were reviewed. PHYSICAL EXAMINATION: Temperature 98.0, pulse of 88, respiratory rate of 19, blood pressure is 141/45, saturating at 91% on 4 L of O2 by nasal cannula. RESPIRATORY EXAMINATION: Rhonchus breath sounds. No wheezing was appreciated. GENERAL: The patient is alert and oriented x3, not in any acute distress. Well developed, well nourished. HEENT: Pupils are round and equally reacting to light. EOMI. No scleral icterus. No conjunctival pallor. Normocephalic, atraumatic. No pharyngeal erythema. No thyromegaly. CARDIOVASCULAR: S1 and S2 present. No murmurs, rubs, or gallops. ABDOMEN: Soft, nontender, nondistended, normoactive bowel sounds. No palpable organomegaly. MUSCULOSKELETAL: No joint swelling or deformity. EXTREMITIES: No cyanosis, clubbing, or pedal edema. NEUROLOGICAL: Gross neurological examination did not reveal any focal deficits. SKIN: No rashes. LABORATORY DATA: no significant change compared to yesterday. ASSESSMENT AND PLAN: 1. Shortness of breath and acute on chronic hypercapnic respiratory failure secondary to chronic obstructive pulmonary disease exacerbation. Patient does have some restrictive lung disease as well. 2. Obstructive sleep apnea. 3. Noncompliance with medication recommendations. 4. Depression. 5. Morbid obesity. 6. Type 2 diabetes mellitus. 7. Obesity hypoventilation syndrome. 8. Hyperlipidemia. 9. Severe tracheobronchitis with Serratia Marcescens and possible chronic diastolic dysfunction and right-sided heart failure. Patient is not hypovolemic at this point of time. Patient will be switched to her home dose of Lasix. 10. History of lung nodules for which pulmonary is treating her as an outpatient. PLAN: Continue with antibiotics. Continue systemic steroids. Continue with supportive therapy. ( ) Laboratory data significant for worsening serum bicarbonate of 41 secondary to compensation from her COPD. ASSESSMENT AND PLAN: ( ) Additionally in the plan, continue with antibiotics, continue with systemic steroids and continue supportive therapy and continue with inhalational treatments and appreciate recommendation from Psychiatry. TOSIN
[2016-10-09] MEDS: LEVOFLOXACIN 750MG-D5W PMX 750 MG in DEXTROSE/WATER 1 150ML.BAG IVPB SCH (12:59)
[2016-10-09] MEDS: predniSONE 20 MG TAB PO SCH (15:21)
--- NOTE | 2016-10-09 16:33 | PN ---
She was seen on 10/09/2016. She has been hemodynamically stable. She continues to have shortness of breath, has not been wearing her CPAP or BiPAP, in the hospital. On physical examination, blood pressure 141/65, respiratory rate 19, pulse rate 85, temperature 98, O2 sat on 4 L by nasal cannula is 91%. HEENT is unremarkable except for redundant tissue in the posterior pharynx with a short, thick neck. Chest reveals expiratory wheeze on forced expiration. Cardiovascular system reveals S1 and S2. Abdomen is soft. There is 1+ to 2+ pedal edema. Labs reveal a sodium 142, potassium 4.9, chloride 93, bicarb 41, BUN 34, creatinine of 0.77. IMPRESSION AT THIS TIME: 1. Asthma with obstructive sleep apnea and obesity hypoventilation syndrome with acute respiratory failure. 2. Chronic obstructive pulmonary disease. 3. Pulmonary hypertension with cor pulmonale. 4. Acute on chronic hypoxic respiratory failure with evidence of hypercarbia as well is likely. At this point in time, would switch her to oral steroids, see if we can get BiPAP arranged for her while she is in the hospital. Increase her activity level. Continue her on the rest of her medications, which were reviewed.
[2016-10-09 17:27] LABS: Glucose,Whole Blood 102 mg/dL (75-99)
[2016-10-09] MEDS: BENZOCAINE/MENTHOL LOZENG 1 EACH LOZENGE MUCOUS MEM PRN (20:33)
[2016-10-09] MEDS: MELATONIN 3 MG TABLET PO SCH (20:34)
[2016-10-09] MEDS: ATORVASTATIN 20 MG TAB PO SCH (20:34)
[2016-10-09] MEDS: MONTELUKAST 10 MG TAB PO SCH (20:34)
[2016-10-09 20:52] LABS: Glucose,Whole Blood 249 mg/dL (75-99)
[2016-10-10 07:22] LABS: Glucose,Whole Blood 71 mg/dL (75-99)
[2016-10-10] MEDS: BUTA/APAP/CAF/COD 50-325-40-30 CAP PO PRN (07:22)
[2016-10-10] MEDS: BUDESONIDE 1 MG/2 ML NEBU INHALATION SCH ×2 (07:36→19:39)
[2016-10-10] MEDS: IPRATROPIUM-ALBUTEROL 3 ML NEB INHALATION SCH ×4 (07:36→19:39)
[2016-10-10] MEDS: FORMOTEROL FUMARATE 20 MCG/2 ML NEBU INHALATION SCH ×2 (07:36→19:39)
[2016-10-10] MEDS: INSULIN LISPRO (humaLOG) 300 UNIT/3 ML VIAL SQ SCH ×7 (07:57→22:07)
[2016-10-10] MEDS: metFORMIN 500 MG TAB PO SCH ×2 (07:58→18:16)
[2016-10-10] MEDS: FUROSEMIDE 80 MG TAB PO SCH ×2 (07:58→17:21)
[2016-10-10] MEDS: ALLOPURINOL 100 MG TAB PO SCH (07:58)
[2016-10-10] MEDS: guaiFENesin 600 MG TABLET.ER PO SCH ×2 (07:58→21:57)
[2016-10-10] MEDS: KETOTIFEN 0.025% OPHTH DROPS 5 ML BTL BOTH EYES SCH ×2 (07:59→21:58)
[2016-10-10] MEDS: predniSONE 20 MG TAB PO SCH (07:59)
[2016-10-10] MEDS: FAMOTIDINE 20 MG TAB PO SCH (07:59)
[2016-10-10] MEDS: PREGABALIN 100 MG CAP PO SCH ×2 (07:59→21:57)
[2016-10-10] MEDS: TETRAHYDROZOLINE 0.05% OPHTH DROPS 15 ML BTL BOTH EYES SCH ×4 (07:59→21:58)
[2016-10-10] MEDS: ESCITALOPRAM 10 MG TAB PO SCH (07:59)
[2016-10-10] MEDS: FERROUS SULFATE 325 MG TAB PO SCH (07:59)
[2016-10-10] MEDS: HEPARIN SODIUM,PORCINE 5,000 UNIT/ML 1 ML VIAL SQ SCH ×3 (07:59→23:48)
[2016-10-10] MEDS: GABAPENTIN 300 MG CAP PO SCH ×2 (08:00→21:57)
[2016-10-10] MEDS: METOPROLOL TARTRATE 12.5 MG TAB PO SCH (08:00)
[2016-10-10] MEDS: INSULIN GLARGINE 100 UNIT/ML 10 ML VIAL SQ SCH (08:00)
[2016-10-10 08:44] LABS: Glucose,Whole Blood 177 mg/dL (75-99)
[2016-10-10 12:27] LABS: Glucose,Whole Blood 203 mg/dL (75-99)
--- NOTE | 2016-10-10 12:27 | PN ---
Patient is a 51-year-old female admitted secondary to hypercapnic respiratory failure. Patient has multifactorial respiratory failure. Patient is fairly stable at this point of time and patient was complaining of some lightheadedness yesterday morning. I believe this is secondary to ( ) of CPAP after using CPAP machine. The same thing will be informed to Pulmonary. Patient is on levofloxacin 750 mg per day. Psychiatry evaluated the patient yesterday. REVIEW OF SYSTEMS: CARDIOVASCULAR: No chest pain, no orthopnea, no PND, no palpitations. PULMONARY: Denied any shortness of breath. No cough or hemoptysis. GASTROINTESTINAL: No diarrhea, nausea or vomiting. No abdominal pain. Normoactive bowel sounds. NEUROLOGIC: No headaches, no weakness, no numbness. GENERALIZED: As described in HPI. Medications were reviewed. PHYSICAL EXAMINATION: VITAL SIGNS: Temperature 96.4, pulse of 77, respiratory rate 20, blood pressure 145/63, saturating at 94% on 4 liters O2 by nasal cannula. GENERAL: Morbidly obese, alert and oriented x3. HEENT: Pupils are round and equally reacting to light. EOMI. No scleral icterus. No conjunctival pallor. Normocephalic, atraumatic. No pharyngeal erythema. No thyromegaly. CARDIOVASCULAR: S1 and S2 present. No murmurs, rubs, or gallops. PULMONARY: Decrease air entry into bilateral lung garibay. Minimal rhonchorous breath sounds, which improved compared to yesterday. No wheezing was appreciated. ABDOMEN: Soft, nontender, nondistended, normoactive bowel sounds. No palpable organomegaly. MUSCULOSKELETAL: No joint swelling or deformity. EXTREMITIES: No cyanosis, clubbing, or pedal edema. NEUROLOGICAL: Gross neurological examination did not reveal any focal deficits. SKIN: No rashes. LABORATORY DATA: Patient has elevated bicarbonate of 41. ASSESSMENT AND PLAN: 1. Shortness of breath, acute on chronic, hypercapnic respiratory failure secondary to chronic obstructive pulmonary disease exacerbation. 2. Obstructive sleep apnea. 3. Depression. 4. Morbid obesity. 5. Type 2 diabetes mellitus. 6. Obesity hypoventilation syndrome. 7. Hyperlipidemia. 8. Severe tracheobronchitis with Serratia marcescens. 9. History of lung nodule. Plan is to continue systemic steroids, inhalational treatments. Respiratory support. CPAP at night.
[2016-10-10] MEDS: LEVOFLOXACIN 750 MG TAB PO SCH (12:51)
--- NOTE | 2016-10-10 13:29 | PN ---
DATE OF SERVICE: 10/10/2016 She seems less short of breath, but continues to complain of shortness of breath. She did wear her BiPAP yesterday and slept all night. On physical examination, respiratory rate is 20, pulse is 84, temperature 96.4, blood pressure 145/63, O2 sat on 4 liters by nasal cannula is 94%. HEENT reveals no new changes. Chest reveals decreased breath sounds, mild prolonged expiration, no clear wheeze. Cardiovascular system reveals an S1, S2. ABDOMEN: Soft. There is 1+ pedal edema. Labs reveal a blood sugar this morning of 71. IMPRESSION: 1. Asthma with obstructive sleep apnea and obesity hypoventilation syndrome. 2. Acute on chronic respiratory failure. 3. Pulmonary hypertension with cor pulmonale. 4. Chronic obstructive pulmonary disease. Continue oral steroids, BiPAP. Increase her activity level. Discharge planning the next 24 to 48 hours would be appropriate from a pulmonary standpoint. She was counseled regarding her condition and this approach.
[2016-10-10 17:23] LABS: Glucose,Whole Blood 211 mg/dL (75-99)
[2016-10-10] MEDS: ATORVASTATIN 20 MG TAB PO SCH (21:57)
[2016-10-10] MEDS: MONTELUKAST 10 MG TAB PO SCH (21:57)
[2016-10-10] MEDS: MELATONIN 3 MG TABLET PO SCH (21:58)
[2016-10-10] MEDS: traMADol 50 MG TAB PO PRN (22:04)
[2016-10-10 22:21] LABS: Glucose,Whole Blood 153 mg/dL (75-99)
[2016-10-10] MEDS: BENZOCAINE/MENTHOL LOZENG 1 EACH LOZENGE MUCOUS MEM PRN (23:47)
[2016-10-11] MEDS: traMADol 50 MG TAB PO PRN (06:25)
[2016-10-11 07:03] LABS: Glucose,Whole Blood 79 mg/dL (75-99)
[2016-10-11] MEDS: INSULIN LISPRO (humaLOG) 300 UNIT/3 ML VIAL SQ SCH ×7 (07:48→21:52)
[2016-10-11] MEDS: BUDESONIDE 1 MG/2 ML NEBU INHALATION SCH ×2 (07:53→20:11)
[2016-10-11] MEDS: FORMOTEROL FUMARATE 20 MCG/2 ML NEBU INHALATION SCH ×2 (07:53→20:11)
[2016-10-11] MEDS: IPRATROPIUM-ALBUTEROL 3 ML NEB INHALATION SCH ×4 (07:53→20:11)
[2016-10-11] MEDS: KETOTIFEN 0.025% OPHTH DROPS 5 ML BTL BOTH EYES SCH ×2 (08:21→21:53)
[2016-10-11] MEDS: TETRAHYDROZOLINE 0.05% OPHTH DROPS 15 ML BTL BOTH EYES SCH ×4 (08:21→21:53)
[2016-10-11] MEDS: INSULIN GLARGINE 100 UNIT/ML 10 ML VIAL SQ SCH (08:28)
[2016-10-11] MEDS: HEPARIN SODIUM,PORCINE 5,000 UNIT/ML 1 ML VIAL SQ SCH ×3 (08:30→23:13)
[2016-10-11] MEDS: predniSONE 20 MG TAB PO SCH (08:32)
[2016-10-11] MEDS: GABAPENTIN 300 MG CAP PO SCH ×2 (08:32→21:52)
[2016-10-11] MEDS: METOPROLOL TARTRATE 12.5 MG TAB PO SCH (08:32)
[2016-10-11] MEDS: metFORMIN 500 MG TAB PO SCH ×2 (08:32→18:01)
[2016-10-11] MEDS: guaiFENesin 600 MG TABLET.ER PO SCH ×2 (08:33→21:52)
[2016-10-11] MEDS: ESCITALOPRAM 10 MG TAB PO SCH (08:33)
[2016-10-11] MEDS: FERROUS SULFATE 325 MG TAB PO SCH (08:33)
[2016-10-11] MEDS: PREGABALIN 100 MG CAP PO SCH ×2 (08:33→21:52)
[2016-10-11] MEDS: ALLOPURINOL 100 MG TAB PO SCH (08:33)
[2016-10-11] MEDS: FAMOTIDINE 20 MG TAB PO SCH (08:33)
[2016-10-11] MEDS: FUROSEMIDE 80 MG TAB PO SCH ×2 (08:33→16:27)
[2016-10-11 09:24] LABS: Anion Gap 8 mmol/L; Blood Urea Nitrogen 30 mg/dL (7-17); Calcium 9.2 mg/dL (8.4-10.2); Chloride 92 mmol/L (98-107); Glucose 66 mg/dL (74-99); Non-African American GFR(MDRD) >60 (>60 ml/min/1.73 sqM); Potassium 3.7 mmol/L (3.5-5.1); Sodium 140 mmol/L (137-145)
[2016-10-11 09:27] LABS: Carbon Dioxide 40 mmol/L (22-30)
[2016-10-11 12:19] LABS: Glucose,Whole Blood 122 mg/dL (75-99)
[2016-10-11] MEDS: LEVOFLOXACIN 750 MG TAB PO SCH (13:12)
--- NOTE | 2016-10-11 13:35 | P.PN ---
Subjective Principal diagnosis: Acute exacerbation of CHF Patient seen and examined. Patient states she does not feel much better. She still coughing up yellow phlegm. She does not feel ready to go home. She denies fevers and chills. She still has shortness of breath with exertion. She states the CPAP made her feel lightheaded and dizzy this morning. However she also notes that her blood sugar was in the 70s. Objective - Vital Signs Vital signs: Vital Signs Temp 97.1 F L 10/11/16 07:00 Pulse 76 10/11/16 11:53 Resp 16 10/11/16 11:53 BP 117/55 10/11/16 07:00 Pulse Ox 94 L 10/11/16 07:56 Intake & Output 10/10/16 10/11/16 10/11/16 18:59 06:59 18:59 Intake Total 400 Balance 400 Weight 167.5 kg Intake: Oral 400 Other: Voiding Method Toilet Toilet Toilet # Voids 1 2 - Exam Gen.: Patient is alert and oriented 3, no acute distress, morbidly obese Cardiovascular: Regular rate and rhythm, S1/S2 Lungs: Diminished breath sounds bilaterally with scattered crackles Abdomen: Soft nontender nondistended positive bowel sounds Extremities: 2-3+ pitting edema - Labs CBC & Chem 7: 10/09/16 07:32 10/11/16 08:05 Labs: Abnormal Lab Results - Last 24 Hours (Table) 10/10/16 10/10/16 10/11/16 Range/Units 17:18 22:06 08:05 Chloride 92 L (98-107) mmol/L Carbon Dioxide 40 H* (22-30) mmol/L BUN 30 H (7-17) mg/dL Glucose 66 L (74-99) mg/dL POC Glucose (mg/dL) 211 H 153 H (75-99) mg/dL 10/11/16 Range/Units 12:17 Chloride (98-107) mmol/L Carbon Dioxide (22-30) mmol/L BUN (7-17) mg/dL Glucose (74-99) mg/dL POC Glucose (mg/dL) 122 H (75-99) mg/dL Assessment and Plan Plan: Acute on chronic hypoxic respiratory failure Acute exacerbation of COPD and asthma, severe persistent Hypercarbia Tracheobronchitis Pulmonary vascular congestion Pulmonary hypertension with cor pulmonale Morbid obesity highly suspect obstructive sleep apnea/obesity hypoventilation syndrome Mild to moderate pulmonary hypertension with an RVSP of 42 mmHg Lung nodule which is PET positive consistent with cancer, patient undergoing radiation therapy Diabetes mellitus type 2 uncontrolled Dyslipidemia Hypertension Hypothyroidism Medical noncompliance Noncompliance with home fluid restriction Clinical depression O2 to maintain saturation greater than or equal to 88% Bronchodilators and Pulmicort Diuresis Singulair I's and O's and daily weights Fluid restriction, patient is encouraged to be compliant Blood sugar control Steroid taper Outpatient discussion regarding pulmonary rehabilitation GI and DVT prophylaxis Patient is encouraged to proceed with outpatient PSG and subsequent titration study, her recurrent heart failure is directly related to her underlying uncontrolled sleep apnea Patient has missed multiple office appointments. Her next appointment was scheduled for 10/06/16. This will be rescheduled prior to discharge. CT chest shows chronic changes, no acute pneumonia Continue CPAP nightly and with naps DC planning
[2016-10-11] MEDS: HYDROcodone/APAP 5-325MG 1 EACH TAB PO PRN (14:28)
--- NOTE | 2016-10-11 16:08 | P.PN ---
Subjective Date of service 10/11/16 Progress note being dictated for Dr. Rudd Interval history: This a 51-year-old female admitted with hypercapnic respiratory failure, asthma and multiple other medical issues. Maintained on Levaquin, nebulized bronchodilators and steroids with significant clinical improvement. CPAP at bedside. Evaluated by psych with recommendations noted. Breathing improving ,States not at baseline yet. Complains of exertional shortness of breath. Sputum culture positive for Serratia marcescens. Continues on Levaquin. States had dizziness this morning, Accu-Chek of 79. Denies chest pain, or palpitations. Objective - Vital Signs Vital signs: Vital Signs Temp 97.1 F L 10/11/16 07:00 Pulse 80 10/11/16 15:39 Resp 16 10/11/16 11:53 BP 117/55 10/11/16 07:00 Pulse Ox 94 L 10/11/16 07:56 Intake & Output 10/10/16 10/11/16 10/11/16 18:59 06:59 18:59 Intake Total 400 80 Balance 400 80 Weight 167.5 kg Intake: IV 80 IV at KVO 80 Oral 400 Other: Voiding Method Toilet Toilet Toilet # Voids 1 2 - Exam PHYSICAL EXAM: VITAL SIGNS: As above GENERAL: [Lying in bed, no acute distress] HEENT: [Pupils equal conjunctiva normal.] NECK: [Supple, no JVD] RESPIRATORY EFFORT:[Mildly increased] LUNGS: [Diminished, no rhonchi, no wheezing occasional scattered crackles] CARDIOVASCULAR[regular S1 and S2, positive edema] GI: [Abdomen soft, obese, nontender, positive bowel sounds.] PSYCH: [Alert and oriented -3, mood and affect normal.] NEURO: [No focal deficits, moves all 4 extremities, strength and sensation grossly intact.] Microbiology 10/04/16 14:47 Blood Blood Culture - Final No Growth after 144 hours 10/05/16 07:45 Sputum Gram Stain - Final 10/05/16 07:45 Sputum Sputum Culture - Final Serratia marcescens - Labs CBC & Chem 7: 10/09/16 07:32 10/11/16 08:05 Labs: Abnormal Lab Results - Last 24 Hours (Table) 10/10/16 10/10/16 10/11/16 Range/Units 17:18 22:06 08:05 Chloride 92 L (98-107) mmol/L Carbon Dioxide 40 H* (22-30) mmol/L BUN 30 H (7-17) mg/dL Glucose 66 L (74-99) mg/dL POC Glucose (mg/dL) 211 H 153 H (75-99) mg/dL 10/11/16 Range/Units 12:17 Chloride (98-107) mmol/L Carbon Dioxide (22-30) mmol/L BUN (7-17) mg/dL Glucose (74-99) mg/dL POC Glucose (mg/dL) 122 H (75-99) mg/dL Assessment and Plan Plan: 1. [Acute on chronic hypercapnic respiratory failure secondary to acute COPD exacerbation, severe persistent]. 2. [Obstructive sleep apnea]. 3. [Depression]. 4. [Morbid obesity, BMI 54.5]. 5. [Diabetes mellitus type 2]. 6. [Obesity hypoventilation syndrome]. 7. [Hyperlipidemia]. 8. Severe tracheobronchitis with Serratia marcescens 9. History of lung nodule, 10. Moderate Pulmonary hypertension with chronic right-sided heart failure on fluid restrictions 11. History of noncompliance. 12. Chronic venostasis 13. History of nicotine abuse Plan: Continue on current medication regime, nebulized bronchodilators, systemic steroids, Levaquin, Lexapro, monitoring and symptomatic treatment. CPAP during sleep, steroid taper. Lantus dose decreased given hypoglycemic this morning. Close monitoring of Accu-Cheks. Discharge planning in progress. Follow closely with pulmonary. The impression and plan of care has been dictated as directed. : I performed a H&P examination of this patient and discussed the same with the dictator. I agree with the dictator's note. Any additional findings/opinions/ etc. will be noted.
[2016-10-11 17:13] LABS: Glucose,Whole Blood 267 mg/dL (75-99)
[2016-10-11 21:04] LABS: Glucose,Whole Blood 232 mg/dL (75-99)
[2016-10-11] MEDS: acetaZOLAMIDE 250 MG TAB PO SCH (21:52)
[2016-10-11] MEDS: MONTELUKAST 10 MG TAB PO SCH (21:52)
[2016-10-11] MEDS: MELATONIN 3 MG TABLET PO SCH (21:52)
[2016-10-11] MEDS: ATORVASTATIN 20 MG TAB PO SCH (22:23)
[2016-10-11] MEDS: guaiFENesin SYRUP 100MG/5ML 200 MG/10 ML CUP PO PRN (23:11)
[2016-10-12] MEDS: SODIUM CHLORIDE 0.65% NASAL SPRAY 44 ML BTL NASAL PRN (06:24)
[2016-10-12] MEDS: FORMOTEROL FUMARATE 20 MCG/2 ML NEBU INHALATION SCH ×2 (07:27→20:35)
[2016-10-12] MEDS: BUDESONIDE 1 MG/2 ML NEBU INHALATION SCH ×2 (07:27→20:35)
[2016-10-12] MEDS: IPRATROPIUM-ALBUTEROL 3 ML NEB INHALATION SCH ×4 (07:27→20:35)
[2016-10-12 07:29] LABS: Glucose,Whole Blood 84 mg/dL (75-99)
[2016-10-12] MEDS: INSULIN LISPRO (humaLOG) 300 UNIT/3 ML VIAL SQ SCH ×7 (07:37→22:33)
[2016-10-12] MEDS: TETRAHYDROZOLINE 0.05% OPHTH DROPS 15 ML BTL BOTH EYES SCH ×4 (08:03→22:34)
[2016-10-12] MEDS: HEPARIN SODIUM,PORCINE 5,000 UNIT/ML 1 ML VIAL SQ SCH ×2 (08:03→16:30)
[2016-10-12] MEDS: KETOTIFEN 0.025% OPHTH DROPS 5 ML BTL BOTH EYES SCH ×2 (08:03→22:33)
[2016-10-12] MEDS: GABAPENTIN 300 MG CAP PO SCH ×2 (08:04→20:44)
[2016-10-12] MEDS: metFORMIN 500 MG TAB PO SCH ×2 (08:04→17:19)
[2016-10-12] MEDS: ESCITALOPRAM 10 MG TAB PO SCH (08:04)
[2016-10-12] MEDS: guaiFENesin 600 MG TABLET.ER PO SCH ×2 (08:04→20:44)
[2016-10-12] MEDS: acetaZOLAMIDE 250 MG TAB PO SCH (08:04)
[2016-10-12] MEDS: FAMOTIDINE 20 MG TAB PO SCH (08:04)
[2016-10-12] MEDS: FUROSEMIDE 80 MG TAB PO SCH ×2 (08:05→16:30)
[2016-10-12] MEDS: FERROUS SULFATE 325 MG TAB PO SCH (08:05)
[2016-10-12] MEDS: BENZOCAINE/MENTHOL LOZENG 1 EACH LOZENGE MUCOUS MEM PRN (08:05)
[2016-10-12] MEDS: ALLOPURINOL 100 MG TAB PO SCH (08:05)
[2016-10-12] MEDS: PREGABALIN 100 MG CAP PO SCH ×2 (08:05→20:44)
[2016-10-12] MEDS: predniSONE 50 MG TAB PO SCH (08:05)
[2016-10-12] MEDS: METOPROLOL TARTRATE 12.5 MG TAB PO SCH (08:06)
[2016-10-12] MEDS: INSULIN GLARGINE 100 UNIT/ML 10 ML VIAL SQ SCH (08:06)
--- NOTE | 2016-10-12 08:46 | PN ---
DATE OF SERVICE: 10/12/2016 She has remained hemodynamically stable. She did not wear her BiPAP today. She is doing slightly better overall. On physical examination, her blood pressure is 100/52, respiratory rate of 20, pulse rate of 82, temperature 97.1, O2 sat on 4 L by nasal cannula is 97%. HEENT reveals pupils that are equal. Chest reveals occasional wheeze. Cardiovascular system reveals an S1, S2. Abdomen is soft. There is 2+ pedal edema. IMPRESSION: 1. Acute on chronic respiratory failure. 2. Chronic obstructive pulmonary disease with asthma with acute exacerbation. 3. Pulmonary hypertension with cor pulmonale. 4. LINDA with obesity hypoventilation syndrome. 5. Previous history consistent with lung cancer for which she has received radiation treatment. At this point in time, encourage the use of BiPAP, continue steroids, bronchodilators, Singulair, optimize her fluid status. Increase her activity level. Her labs are reviewed. Her elevated bicarb is most likely secondary to her pCO2 being high.
[2016-10-12 10:27] VITALS: BMI 21.3
--- NOTE | 2016-10-12 11:04 | P.PN ---
Progress Note - Text Interval history: The patient was seen for psychiatric follow-up. She reports that her mood is improving. She states that she has anticipatory anxiety regarding going back to previous living placement "It is very stressful and not helping my breathing problem ",she reports being hospitalized twice this month for "Same problem ,I want SW to help me to find apartment "I discussed with patient option staying with daughter till she will be able to find placement , she replied "I would rather have my own place" Mental status exam: The patient is alert , speech is non spontaneous but fluent non pressured. . She reports that her mood is improving she is reporting no suicidal ideation intent or plan She is endorsing no specific delusion she is endorsing no auditory or visual hallucinations. Insight and judgment limited. Plan: The patient will continue on Lexapro ,refer to outpatient [facility] to help patient regarding post discharge living arrangement to prevent re-hospitalization
[2016-10-12 11:45] LABS: Glucose,Whole Blood 146 mg/dL (75-99)
[2016-10-12] MEDS: LEVOFLOXACIN 750 MG TAB PO SCH (13:03)
[2016-10-12 16:55] LABS: Glucose,Whole Blood 233 mg/dL (75-99)
--- NOTE | 2016-10-12 17:24 | P.PN ---
Subjective Date of service 10/12/16 Progress note being dictated for Dr. Rudd Interval history: This a 51-year-old female admitted with hypercapnic respiratory failure, asthma and multiple other medical issues. Maintained on Levaquin, nebulized bronchodilators and steroids with significant clinical improvement. Did not wear CPAP last night. Breathing improving , without audible wheezing. Complains of mild headache this morning with no focal deficits. Denies dizziness lightheadedness. Denies chest pain, or palpitations. Objective - Vital Signs Vital signs: Vital Signs Temp 98.2 F 10/12/16 15:00 Pulse 80 10/12/16 15:21 Resp 18 10/12/16 15:00 BP 103/55 10/12/16 15:00 Pulse Ox 93 L 10/12/16 15:00 Intake & Output 10/11/16 10/12/16 10/12/16 18:59 06:59 18:59 Intake Total 80 Balance 80 Weight 65.5 kg 65.5 kg Intake: IV 80 IV at KVO 80 Other: Voiding Method Toilet Toilet # Voids 2 - Exam PHYSICAL EXAM: VITAL SIGNS: As above GENERAL: [Sitting up at bedside, no acute distress] HEENT: [Pupils equal conjunctiva normal.] NECK: [Supple, no JVD] RESPIRATORY EFFORT:[Mildly increased] LUNGS: [Diminished, no rhonchi, no wheezing occasional scattered crackles] CARDIOVASCULAR[regular S1 and S2, positive edema] GI: [Abdomen soft, obese, nontender, positive bowel sounds.] PSYCH: [Alert and oriented -3, mood and affect normal.] NEURO: [No focal deficits, moves all 4 extremities, strength and sensation grossly intact. - Labs CBC & Chem 7: 10/09/16 07:32 10/11/16 08:05 Labs: Abnormal Lab Results - Last 24 Hours (Table) 10/11/16 10/11/16 10/12/16 Range/Units 17:11 21:00 11:42 POC Glucose (mg/dL) 267 H 232 H 146 H (75-99) mg/dL 10/12/16 Range/Units 16:53 POC Glucose (mg/dL) 233 H (75-99) mg/dL Assessment and Plan Plan: 1. [Acute on chronic hypercapnic respiratory failure secondary to acute COPD exacerbation, severe persistent]. 2. [Obstructive sleep apnea]. 3. [Depression]. 4. [Morbid obesity, BMI 54.5]. 5. [Diabetes mellitus type 2]. 6. [Obesity hypoventilation syndrome]. 7. [Hyperlipidemia]. 8. Severe tracheobronchitis with Serratia marcescens 9. History of lung nodule, 10. Moderate Pulmonary hypertension with chronic right-sided heart failure on fluid restrictions 11. History of noncompliance. 12. Chronic venostasis 13. History of nicotine abuse Plan: Continue on current medication regime, nebulized bronchodilators, systemic steroids, Levaquin, Lexapro, monitoring and symptomatic treatment. CPAP during sleep, steroid taper. Close monitoring of Accu-Cheks. Discharge planning in progress pending pulmonary clearance. The impression and plan of care has been dictated as directed. : I performed a H&P examination of this patient and discussed the same with the dictator. I agree with the dictator's note. Any additional findings/opinions/ etc. will be noted.
[2016-10-12] MEDS: POTASSIUM CHLORIDE ER 20 MEQ TAB.ER PO SCH (20:44)
[2016-10-12] MEDS: MONTELUKAST 10 MG TAB PO SCH (20:44)
[2016-10-12] MEDS: HYDROcodone/APAP 5-325MG 1 EACH TAB PO PRN (20:44)
[2016-10-12] MEDS: ATORVASTATIN 20 MG TAB PO SCH (20:44)
[2016-10-12] MEDS: guaiFENesin SYRUP 100MG/5ML 200 MG/10 ML CUP PO PRN (20:44)
[2016-10-12 21:32] LABS: Glucose,Whole Blood 159 mg/dL (75-99)
[2016-10-12] MEDS: MELATONIN 3 MG TABLET PO SCH (22:33)
[2016-10-13] MEDS: HEPARIN SODIUM,PORCINE 5,000 UNIT/ML 1 ML VIAL SQ SCH ×2 (00:46→08:11)
[2016-10-13 07:40] LABS: Glucose,Whole Blood 110 mg/dL (75-99)
[2016-10-13] MEDS: INSULIN LISPRO (humaLOG) 300 UNIT/3 ML VIAL SQ SCH ×4 (07:49→12:53)
[2016-10-13] MEDS: BENZOCAINE/MENTHOL LOZENG 1 EACH LOZENGE MUCOUS MEM PRN (08:08)
[2016-10-13] MEDS: FUROSEMIDE 80 MG TAB PO SCH (08:10)
[2016-10-13] MEDS: SODIUM CHLORIDE 0.65% NASAL SPRAY 44 ML BTL NASAL PRN (08:10)
[2016-10-13] MEDS: METOPROLOL TARTRATE 12.5 MG TAB PO SCH (08:10)
[2016-10-13] MEDS: ESCITALOPRAM 10 MG TAB PO SCH (08:10)
[2016-10-13] MEDS: FAMOTIDINE 20 MG TAB PO SCH (08:11)
[2016-10-13] MEDS: PREGABALIN 100 MG CAP PO SCH (08:11)
[2016-10-13] MEDS: KETOTIFEN 0.025% OPHTH DROPS 5 ML BTL BOTH EYES SCH (08:11)
[2016-10-13] MEDS: guaiFENesin 600 MG TABLET.ER PO SCH (08:11)
[2016-10-13] MEDS: POTASSIUM CHLORIDE ER 20 MEQ TAB.ER PO SCH (08:12)
[2016-10-13] MEDS: ALLOPURINOL 100 MG TAB PO SCH (08:12)
[2016-10-13] MEDS: BUDESONIDE 1 MG/2 ML NEBU INHALATION SCH (08:12)
[2016-10-13] MEDS: IPRATROPIUM-ALBUTEROL 3 ML NEB INHALATION SCH ×2 (08:12→14:05)
[2016-10-13] MEDS: metFORMIN 500 MG TAB PO SCH (08:12)
[2016-10-13] MEDS: predniSONE 50 MG TAB PO SCH (08:13)
[2016-10-13] MEDS: FORMOTEROL FUMARATE 20 MCG/2 ML NEBU INHALATION SCH (08:13)
[2016-10-13] MEDS: GABAPENTIN 300 MG CAP PO SCH (08:13)
[2016-10-13] MEDS: TETRAHYDROZOLINE 0.05% OPHTH DROPS 15 ML BTL BOTH EYES SCH ×2 (08:13→12:57)
[2016-10-13 08:21] VITALS: BP 100/60; RESP 18; TEMP 96.7
[2016-10-13 08:37] VITALS: PULSE 88
[2016-10-13] MEDS: INSULIN GLARGINE 100 UNIT/ML 10 ML VIAL SQ SCH (09:47)
[2016-10-13] MEDS: FERROUS SULFATE 325 MG TAB PO SCH (09:47)
--- NOTE | 2016-10-13 11:34 | P.PN ---
Subjective Principal diagnosis: Acute exacerbation of CHF Patient seen and examined. Patient states she is still coughing. She is complaining of sinus congestion. She denies fevers and chills. She states she did not wear the CPAP last night because it gave her headache. Objective - Vital Signs Vital signs: Vital Signs Temp 96.7 F L 10/13/16 07:00 Pulse 88 10/13/16 08:37 Resp 18 10/13/16 07:00 BP 100/60 10/13/16 07:00 Pulse Ox 94 L 10/13/16 07:00 Intake & Output 10/12/16 10/13/16 10/13/16 18:59 06:59 18:59 Weight 65.5 kg 164 kg Other: # Bowel Movements 1 - Exam Gen.: Patient is alert and oriented 3, no acute distress, morbidly obese Cardiovascular: Regular rate and rhythm, S1/S2 Lungs: Diminished breath sounds bilaterally with scattered crackles Abdomen: Soft nontender nondistended positive bowel sounds Extremities: 2-3+ pitting edema - Labs CBC & Chem 7: 10/09/16 07:32 10/11/16 08:05 Labs: Abnormal Lab Results - Last 24 Hours (Table) 10/12/16 10/12/16 10/12/16 Range/Units 11:42 16:53 21:30 POC Glucose (mg/dL) 146 H 233 H 159 H (75-99) mg/dL 10/13/16 Range/Units 07:38 POC Glucose (mg/dL) 110 H (75-99) mg/dL Assessment and Plan Plan: Acute on chronic hypoxic respiratory failure, improving, back to baseline Acute exacerbation of COPD and asthma, severe persistent Hypercarbia Tracheobronchitis Pulmonary vascular congestion Pulmonary hypertension with cor pulmonale Morbid obesity highly suspect obstructive sleep apnea/obesity hypoventilation syndrome Mild to moderate pulmonary hypertension with an RVSP of 42 mmHg Lung nodule which is PET positive consistent with cancer, patient undergoing radiation therapy Diabetes mellitus type 2 uncontrolled Dyslipidemia Hypertension Hypothyroidism Medical noncompliance Noncompliance with home fluid restriction Clinical depression O2 to maintain saturation greater than or equal to 88% Bronchodilators and Pulmicort Diuresis Singulair I's and O's and daily weights Fluid restriction, patient is encouraged to be compliant Blood sugar control Steroid taper Outpatient discussion regarding pulmonary rehabilitation, patient has refused in the past GI and DVT prophylaxis Patient is encouraged to proceed with outpatient PSG and subsequent titration study, her recurrent heart failure is directly related to her underlying uncontrolled sleep apnea Patient has missed multiple office appointments. Her next appointment was scheduled for 10/06/16. This will be rescheduled prior to discharge. CT chest shows chronic changes, no acute pneumonia Continue CPAP nightly and with naps Okay to DC from pulmonary standpoint
[2016-10-13 11:35] LABS: Anion Gap 10 mmol/L; Blood Urea Nitrogen 29 mg/dL (7-17); Calcium 9.9 mg/dL (8.4-10.2); Carbon Dioxide 33 mmol/L (22-30); Chloride 98 mmol/L (98-107); Glucose 160 mg/dL (74-99); Non-African American GFR(MDRD) >60 (>60 ml/min/1.73 sqM); Potassium 4.1 mmol/L (3.5-5.1); Sodium 141 mmol/L (137-145)
[2016-10-13 12:30] LABS: Glucose,Whole Blood 204 mg/dL (75-99)
[2016-10-13] MEDS: LEVOFLOXACIN 750 MG TAB PO SCH (12:54)
--- NOTE | 2016-10-13 14:12 | P.DS ---
Providers Date of admission: 10/04/16 16:22 Expected date of discharge: 10/13/16 Attending physician: Ugo Rudd Consults: 10/04/16 19:07 Consult Physician Routine Consulting Provider: Zeyad Avila Consult Reason/Comments: copd Do you want consulting provider notified?: Yes 10/07/16 15:47 Consult Physician Routine Consulting Provider: Mihaela Duran Consult Reason/Comments: Depression, medical noncompliance Do you want consulting provider notified?: Yes Dr. Mary Campos, pulmonary Primary care physician: [facility] Course: Final Diagnoses: 1. Acute on chronic hypercapnic respiratory failure secondary to acute COPD exacerbation, back at baseline per patient and pulmonary 2. [Obstructive sleep apnea, declining CPAP]. 3. [Depression]. 4. [Morbid obesity, BMI 54.5]. 5. [Diabetes mellitus type 2]. 6. [Obesity hypoventilation syndrome]. 7. [Hyperlipidemia]. 8. Severe tracheobronchitis with Serratia marcescens 9. History of lung nodule, undergoing outpatient radiation therapy 10. Moderate Pulmonary hypertension with chronic right-sided heart failure on fluid restrictions 11. History of noncompliance. 12. Chronic venostasis 13. History of nicotine abuse Hospital course:This is a 51-year-old female admitted with hypercapnic respiratory failure, asthma and multiple other medical issues. Sputum culture positive for Serratia marcescens. Maintained on Levaquin, nebulized bronchodilators and steroids with significant clinical improvement. CPAP recommended during sleep and with naps, patient not wearing, states it gives her a headache. Evaluated by psych regarding depression and placed on Lexapro. No suicidal idealization. Cleared by pulmonary for discharge. Patient is being discharged home in a stable condition with guarded prognosis. Patient Condition at Discharge: Stable Plan - Discharge Summary New Discharge Prescriptions: Escitalopram [Lexapro] 10 mg PO DAILY #30 tab Levofloxacin [Levaquin] 750 mg PO DAILY@1300 #5 tab predniSONE 10 mg PO DIRECTED #30 tab Discharge Medication List Famotidine [Pepcid] 20 mg PO DAILY 08/19/14 [History] Loratadine 10 mg PO DAILY PRN 08/19/14 [History] Ferrous Sulfate [Iron (65 MG Elemental)] 325 mg PO DAILY 08/20/14 [History] Nitroglycerin Sl Tabs [Nitrostat] 0.4 mg SUBLINGUAL Q5M PRN 08/20/14 [History] metFORMIN HCL 1,000 mg PO AC-BID 08/20/14 [History] Lisinopril [Zestril] 5 mg PO DAILY 03/13/15 [History] Gabapentin [Neurontin] 300 mg PO BID 03/15/16 [History] Simvastatin [Zocor] 40 mg PO HS 03/15/16 [History] Febuxostat [Uloric] 80 mg PO DAILY 05/04/16 [History] Umeclidinium Brm/Vilanterol Tr [Anoro Ellipta 62.5-25 Mcg INH] 1 puff INHALATION RT-DAILY 05/04/16 [History] traMADol HCl [Ultram] 50 mg PO QID PRN #0 tab 05/06/16 [Rx] INSULIN LISPRO (humaLOG) [humaLOG (formulary)] 10 unit SQ AC-TID #1 vial [Rx] Potassium Chloride ER [K-Dur 20] 20 meq PO BID tab.er.prt 05/25/16 [Rx] Furosemide [Lasix] 80 mg PO BID@0900,1600 06/08/16 [History] Insulin Glargine [Lantus] 120 unit SQ DAILY@0900 06/08/16 [History] Pregabalin [Lyrica] 100 mg PO BID 06/08/16 [History] Metoprolol Tartrate [Lopressor] 12.5 mg PO DAILY 07/18/16 [History] Montelukast [Singulair] 10 mg PO HS 07/18/16 [History] Albuterol Inhaler [Ventolin Hfa Inhaler] 1 - 2 puff INHALATION RT-Q6H PRN [History] Buta/APAP/Caf/Cod [id number] [Fioricet w/Cod [id number]] 1 - 2 cap PO Q4H PRN #30 capsule 08/27/16 [Rx] Ketotifen 0.025% Ophth Soln [Zaditor] 1 drops BOTH EYES BID ml 09/27/16 [Rx] Tetrahydrozoline 0.05% Ophth [Visine Eye Drops] 1 drops BOTH EYES QID ml [Rx] Escitalopram [Lexapro] 10 mg PO DAILY #30 tab 10/13/16 [Rx] Ipratropium-Albuterol Nebulize [Duoneb 0.5 mg-3 mg/3 ml Soln] 3 ml INHALATION QID #0 ampul.neb 10/13/16 [Rx] Levofloxacin [Levaquin] 750 mg PO DAILY@1300 #5 tab 10/13/16 [Rx] Sodium Chloride 0.65% Nasal [Deep Sea] 2 spray NASAL QID PRN #0 spray 10/13/16 [ Rx] guaiFENesin SYRUP 100MG/5ML [Robitussin] 200 mg PO Q6H PRN #0 cup 10/13/16 [Rx] guaiFENesin [Mucinex] 1,200 mg PO Q12HR tablet.er 10/13/16 [Rx] predniSONE 10 mg PO DIRECTED #30 tab 10/13/16 [Rx] Follow up Appointment(s)/Referral(s): Dr. JARON Psychiatry [Other] - 1 Week Mary Campos DO [Doctor of Osteopathic Medicine] - 2 Weeks [facility], [NON-STAFF] - 1 Week Herrera Dimas DO [Primary Care Provider] - 3 Days Ambulatory/Diagnostic Orders: Complete Blood Count w/diff [LAB.AMB] Time Frame: 3 Days, Location: Determined By Patient Patient Instructions/Handouts: Breathing Techniques (DC) Activity/Diet/Wound Care/Special Instructions: BiPAP and continuous nasal cannula FiO2 as per pulmonary Diet: Consistent carb, 1200 mL fluid restrictions/24 hrs. Accu-Cheks before meals and at bedtime Activity: Limited until follow up
== END 2016-10-13 15:11 | disposition home health service (06) | DRG 189 ==
LOC: EC 14:17 → 4MS4W 16:22
PROVIDERS: ADMIT Hospitalist; ATTEND Hospitalist
DX: J96.21 Acute and chronic respiratory failure with hypoxia (principal); E11.40 Type 2 diabetes mellitus with diabetic neuropathy, unspecified; J44.0 Chronic obstructive pulmonary disease with (acute) lower respiratory infection; J45.51 Severe persistent asthma with (acute) exacerbation; C34.90 Malignant neoplasm of unspecified part of unspecified bronchus or lung; I50.32 Chronic diastolic (congestive) heart failure; I11.0 Hypertensive heart disease with heart failure; J44.1 Chronic obstructive pulmonary disease with (acute) exacerbation; E66.2 Morbid (severe) obesity with alveolar hypoventilation; Z68.43 Body mass index [BMI] 50.0-59.9, adult; I27.2 Other secondary pulmonary hypertension; E11.65 Type 2 diabetes mellitus with hyperglycemia; J20.9 Acute bronchitis, unspecified; E83.42 Hypomagnesemia; I27.81 Cor pulmonale (chronic); F43.20 Adjustment disorder, unspecified; G47.33 Obstructive sleep apnea (adult) (pediatric); M10.9 Gout, unspecified; E03.9 Hypothyroidism, unspecified; E78.5 Hyperlipidemia, unspecified; F40.240 Claustrophobia; J96.22 Acute and chronic respiratory failure with hypercapnia; J98.4 Other disorders of lung; F32.9 Major depressive disorder, single episode, unspecified; I87.2 Venous insufficiency (chronic) (peripheral); M19.90 Unspecified osteoarthritis, unspecified site; Z99.81 Dependence on supplemental oxygen; Z92.3 Personal history of irradiation; Z71.3 Dietary counseling and surveillance; Z87.01 Personal history of pneumonia (recurrent); Z87.891 Personal history of nicotine dependence; Z91.14 Patient's other noncompliance with medication regimen; Z91.11 Patient's noncompliance with dietary regimen; Z79.84 Long term (current) use of oral hypoglycemic drugs; Z79.4 Long term (current) use of insulin; Z79.52 Long term (current) use of systemic steroids; Z79.899 Other long term (current) drug therapy; Z82.5 Family history of asthma and other chronic lower respiratory diseases
CPT/HCPCS: 36415; 71010; 71250; 80048; 80053; 81003; 82550; 82553; 83036; 83735; 83880; 84484; 85025; 85379; 85610; 85730; 87040; 87070; 87077; 87186; 87205; 94640; 94644; 94660; 94760; 96365; 96368; 96375; 99285

== ENCOUNTER 2016-10-29 18:59 | Inpatient (IN) | payer MEDICARE, OTHER ==
[2016-10-29] MEDS ORDERED: methylPREDNISolone SOD SUCCI 125 MG/2 ML VIAL IV STA (19:15)
[2016-10-29] MEDS ORDERED: ALBUTEROL NEBULIZED 2.5 MG/3 ML INHALATION STA (19:15)
[2016-10-29] MEDS ORDERED: IPRATROPIUM 0.5 MG/2.5 ML NEBU INHALATION STA (19:15)
--- NOTE | 2016-10-29 19:22 | ED ---
General Adult HPI - General Chief complaint: Shortness of Breath Stated complaint: SOILA Time Seen by Provider: 10/29/16 19:00 Source: patient, RN notes reviewed Mode of arrival: wheelchair Limitations: no limitations - History of Present Illness Initial comments: This is a 51-year-old female with past medical history significant for diabetes COPD and congestive heart failure. Patient states for the last 3 or 4 days she' s had difficulty breathing. Patient states she went to another ER syndromes and nothing was wrong. Patient states since then her breathing is gotten worse per patient on oxygen at 4 L at home and she states she can hardly breathe in any kind of movement makes it worse per patient denies any chest pain. Patient denies any fever or chills per patient states she has a cough but no sputum production. Patient denies any abdominal pain. Patient denies any nausea vomiting diarrhea. Patient denies any palpitations. Patient denies headache patient denies numbness weakness. Patient denies any recent injury or trauma. - Related Data Home Medications Medication Instructions Recorded Confirmed Famotidine [Pepcid] 20 mg PO DAILY 08/19/14 10/29/16 Loratadine 10 mg PO DAILY PRN 08/19/14 10/29/16 Ferrous Sulfate [Iron (65 MG 325 mg PO DAILY 08/20/14 10/29/16 Elemental)] Nitroglycerin Sl Tabs [Nitrostat] 0.4 mg SUBLINGUAL Q5M PRN 08/20/14 10/29/16 metFORMIN HCL 1,000 mg PO AC-BID 08/20/14 10/29/16 Lisinopril [Zestril] 5 mg PO DAILY 03/13/15 10/29/16 Gabapentin [Neurontin] 300 mg PO BID 03/15/16 10/29/16 Simvastatin [Zocor] 40 mg PO HS 03/15/16 10/29/16 Febuxostat [Uloric] 80 mg PO DAILY 05/04/16 10/29/16 Umeclidinium Brm/Vilanterol Tr 1 puff INHALATION RT-DAILY 05/04/16 10/29/16 [Anoro Ellipta 62.5-25 Mcg INH] Furosemide [Lasix] 80 mg PO BID@0900,1600 06/08/16 10/29/16 Insulin Glargine [Lantus] 120 unit SQ DAILY@0900 06/08/16 10/29/16 Pregabalin [Lyrica] 100 mg PO BID 06/08/16 10/29/16 Metoprolol Tartrate [Lopressor] 12.5 mg PO DAILY 07/18/16 10/29/16 Montelukast [Singulair] 10 mg PO HS 07/18/16 10/29/16 Albuterol Inhaler [Ventolin Hfa 1 - 2 puff INHALATION RT-Q6H PRN 08/24/16 Inhaler] Azithromycin [Zithromax Z-pack] See Taper PO DIRECTED 10/29/16 10/29/16 Ipratropium-Albuterol Nebulize 3 ml INHALATION RT-QID 10/29/16 10/29/16 [Duoneb 0.5 mg-3 mg/3 ml Soln] Ipratropium-Albuterol Nebulize 3 ml INHALATION RT-QID 10/29/16 10/29/16 [Duoneb 0.5 mg-3 mg/3 ml Soln] Previous Rx's Medication Instructions Recorded traMADol HCl [Ultram] 50 mg PO QID PRN #0 tab 05/06/16 INSULIN LISPRO (humaLOG) [humaLOG 10 unit SQ AC-TID #1 vial 05/25/16 (formulary)] Potassium Chloride ER [K-Dur 20] 20 meq PO BID tab.er.prt 05/25/16 Buta/APAP/Caf/Cod [id number] 1 - 2 cap PO Q4H PRN #30 capsule 08/27/16 [Fioricet w/Cod [id number]] Ketotifen 0.025% Ophth Soln 1 drops BOTH EYES BID ml 09/27/16 [Zaditor] Tetrahydrozoline 0.05% Ophth 1 drops BOTH EYES QID ml 09/27/16 [Visine Eye Drops] Escitalopram [Lexapro] 10 mg PO DAILY #30 tab 10/13/16 Sodium Chloride 0.65% Nasal [Deep 2 spray NASAL QID PRN #0 spray 10/13/16 Sea] guaiFENesin SYRUP 100MG/5ML 200 mg PO Q6H PRN #0 cup 10/13/16 [Robitussin] guaiFENesin [Mucinex] 1,200 mg PO Q12HR tablet.er 10/13/16 Allergies Allergy/AdvReac Type Severity Reaction Status Date / Time No Known Allergies Allergy Verified 10/29/16 20:04 Review of Systems ROS Statement: Those systems with pertinent positive or pertinent negative responses have been documented in the HPI. ROS Other: All systems not noted in ROS Statement are negative. Past Medical History Past Medical History: Asthma, Chest Pain / Angina, Heart Failure, COPD, Diabetes Mellitus, Hyperlipidemia, Hypertension, Neurologic Disorder, Osteoarthritis (OA), Pneumonia, Respiratory Disorder, Sleep Apnea/CPAP/BIPAP, Syncope, Thyroid Disorder Additional Past Medical History / Comment(s): GOUT, NEUROPATHY-FEET, sleep apnea but won't wear cpap, has home 02 4 liters n/c atc, past resp failure, hypothyroid,,lt lower lobe nodule-radiation therapy(,unsuccesful bx) History of Any Multi-Drug Resistant Organisms: None Reported Past Surgical History: Section Additional Past Surgical History / Comment(s): LT CARPAL TUNNEL, 3 unsuccessful attempts at lt lobe bx Past Anesthesia/Blood Transfusion Reactions: No Reported Reaction Additional Past Anesthesia/Blood Transfusion Reaction / Comment(s): CLAUSTERPHOBIA Past Psychological History: No Psychological Hx Reported Additional Psychological History / Comment(s): PT LIVES AT HOME WITH A FRIEND, CURRENTLY RECIEVING HOME CARE SERVICES THRU [facility] Smoking Status: Former smoker Past Alcohol Use History: None Reported Additional Past Alcohol Use History / Comment(s): STARTED SMOKING 1975-STOPPED 2007 Past Drug Use History: None Reported - Past Family History Father Family Medical History: COPD, Diabetes Mellitus Mother History Unknown: Yes Family Medical History: No Reported History Additional Family Medical History / Comment(s): AT AGE 43 FROM SUICIDE General Exam - General Exam Comments Initial Comments: GENERAL: Patient is well-developed and well-nourished. Patient is nontoxic and well- hydrated and is in mild distress. ENT: Neck is soft and supple. No significant lymphadenopathy is noted. Oropharynx is clear. Moist mucous membranes. Neck has full range of motion without eliciting any pain. EYES: The sclera were anicteric and conjunctiva were pink and moist. Extraocular movements were intact and pupils were equal round and reactive to light. Eyelids were unremarkable. PULMONARY: Patient has labored respirations and significantly decreased breath sounds. CARDIOVASCULAR: There is a regular rate and rhythm without any murmurs gallops or rubs. ABDOMEN: Soft and nontender with normal bowel sounds. No palpable organomegaly was noted. There is no palpable pulsatile mass. SKIN: Skin is clear with no lesions or rashes and otherwise unremarkable. NEUROLOGIC: Patient is alert and oriented x3. Cranial nerves II through XII are grossly intact. Motor and sensory are also intact. Normal speech, volume and content. Symmetrical smile. MUSCULOSKELETAL: Normal extremities with adequate strength and full range of motion. 1+ edema bilaterally. No calf tenderness. LYMPHATICS: No significant lymphadenopathy is noted PSYCHIATRIC: Normal psychiatric evaluation. Limitations: no limitations Course Vital Signs 10/29/16 10/29/16 10/29/16 19:02 19:31 19:33 Temperature 98 F Pulse Rate 103 H 97 Respiratory 18 18 Rate Blood Pressure 139/78 O2 Sat by Pulse 84 L Oximetry 10/29/16 10/29/16 19:41 20:04 Temperature Pulse Rate 99 97 Respiratory 18 Rate Blood Pressure O2 Sat by Pulse 92 L Oximetry Medical Decision Making - Medical Decision Making EKG shows normal sinus rhythm at 85 bpm AR interval is 164 QRS is 76 QT interval 354 QTC is 421. EKG shows no ST segment elevation or depression or T- wave abnormalities noted. Chest x-ray shows right middle lobe pneumonia. I started the patient on Levaquin. I spoke with [facility] hospitalists and they agreed to admit the patient I admitted the patient and I wrote admitting orders. I gave the patient 3 consecutive breathing treatments as well as Solu-Medrol she was feeling better and sounding better and her pulse ox now was 92% on 4 L. - Lab Data Result diagrams: 10/29/16 19:25 10/29/16 19:25 Lab Results 10/29/16 10/29/16 10/29/16 Range/Units 19:25 19:25 19:25 WBC 5.2 (3.8-10.6) k/uL RBC 3.87 (3.80-5.40) m/uL Hgb 11.8 (11.4-16.0) gm/dL Hct 36.9 (34.0-46.0) % MCV 95.3 (80.0-100.0) fL MCH 30.5 (25.0-35.0) pg MCHC 32.0 (31.0-37.0) g/dL RDW 14.0 (11.5-15.5) % Plt Count 201 (150-450) k/uL Neutrophils % 73 % Lymphocytes % 16 % Monocytes % 6 % Eosinophils % 1 % Basophils % 1 % Neutrophils # 3.8 (1.3-7.7) k/uL Lymphocytes # 0.8 L (1.0-4.8) k/uL Monocytes # 0.3 (0-1.0) k/uL Eosinophils # 0.0 (0-0.7) k/uL Basophils # 0.1 (0-0.2) k/uL PT (9.0-12.0) sec INR (<1.1) APTT (22.0-30.0) sec Sodium 143 (137-145) mmol/L Potassium 4.4 (3.5-5.1) mmol/L Chloride 94 L (98-107) mmol/L Carbon Dioxide 39 H (22-30) mmol/L Anion Gap 10 mmol/L BUN 32 H (7-17) mg/dL Creatinine 0.99 (0.52-1.04) mg/dL Est GFR (MDRD) Af Amer >60 (>60 ml/min/1.73 sqM) Est GFR (MDRD) Non-Af 59 (>60 ml/min/1.73 sqM) Glucose 380 H (74-99) mg/dL Calcium 9.0 (8.4-10.2) mg/dL Magnesium 1.3 L (1.6-2.3) mg/dL Total Bilirubin 0.4 (0.2-1.3) mg/dL AST 17 (14-36) U/L ALT 36 (9-52) U/L Alkaline Phosphatase 64 (38-126) U/L Total Creatine Kinase 73 (30-135) U/L CK-MB (CK-2) 0.6 (0.0-2.4) ng/mL CK-MB (CK-2) Rel Index 0.8 Troponin I <0.012 (0.000-0.034) ng/mL NT-Pro-B Natriuret Pep pg/mL Total Protein 6.0 L (6.3-8.2) g/dL Albumin 3.6 (3.5-5.0) g/dL 10/29/16 10/29/16 Range/Units 19:25 19:25 WBC (3.8-10.6) k/uL RBC (3.80-5.40) m/uL Hgb (11.4-16.0) gm/dL Hct (34.0-46.0) % MCV (80.0-100.0) fL MCH (25.0-35.0) pg MCHC (31.0-37.0) g/dL RDW (11.5-15.5) % Plt Count (150-450) k/uL Neutrophils % % Lymphocytes % % Monocytes % % Eosinophils % % Basophils % % Neutrophils # (1.3-7.7) k/uL Lymphocytes # (1.0-4.8) k/uL Monocytes # (0-1.0) k/uL Eosinophils # (0-0.7) k/uL Basophils # (0-0.2) k/uL PT 9.8 (9.0-12.0) sec INR 1.0 (<1.1) APTT 22.2 (22.0-30.0) sec Sodium (137-145) mmol/L Potassium (3.5-5.1) mmol/L Chloride (98-107) mmol/L Carbon Dioxide (22-30) mmol/L Anion Gap mmol/L BUN (7-17) mg/dL Creatinine (0.52-1.04) mg/dL Est GFR (MDRD) Af Amer (>60 ml/min/1.73 sqM) Est GFR (MDRD) Non-Af (>60 ml/min/1.73 sqM) Glucose (74-99) mg/dL Calcium (8.4-10.2) mg/dL Magnesium (1.6-2.3) mg/dL Total Bilirubin (0.2-1.3) mg/dL AST (14-36) U/L ALT (9-52) U/L Alkaline Phosphatase (38-126) U/L Total Creatine Kinase (30-135) U/L CK-MB (CK-2) (0.0-2.4) ng/mL CK-MB (CK-2) Rel Index Troponin I (0.000-0.034) ng/mL NT-Pro-B Natriuret Pep 83 pg/mL Total Protein (6.3-8.2) g/dL Albumin (3.5-5.0) g/dL Critical Care Time Critical Care Time: Yes Total Critical Care Time: 35 Disposition Clinical Impression: Pneumonia, Acute exacerbation of chronic obstructive airways disease Disposition: ADMITTED IP TO THIS HOSP Time of Disposition: 20:54
[2016-10-29 19:39] LABS: Basophils # (A) 0.1 k/uL (0-0.2); Basophils % (A) 1 %; CH 30.6; CHCM 32.3; Eosinophils % (A) 1 %; HCT 36.9 % (34.0-46.0); HDW 2.74; HGB 11.8 gm/dL (11.4-16.0); Luc # (Auto) 0.18; Luc % (Auto) 3; Lymphocytes # (A) 0.8 k/uL (1.0-4.8); Lymphocytes % (A) 16 %; MCH 30.5 pg (25.0-35.0); MCV 95.3 fL (80.0-100.0); Mean Platelet Volume 8.6; Monocytes # (A) 0.3 k/uL (0-1.0); Monocytes % (A) 6 %; Neutrophils # (A) 3.8 k/uL (1.3-7.7); Neutrophils % (A) 73 %; RBC 3.87 m/uL (3.80-5.40); WBC 5.2 k/uL (3.8-10.6)
[2016-10-29 19:50] LABS: ALT 36 U/L (9-52); AST 17 U/L (14-36); Alkaline Phosphatase 64 U/L (38-126); Anion Gap 10 mmol/L; Blood Urea Nitrogen 32 mg/dL (7-17); Carbon Dioxide 39 mmol/L (22-30); Chloride 94 mmol/L (98-107); Glucose 380 mg/dL (74-99); Magnesium 1.3 mg/dL (1.6-2.3); Non-African American GFR(MDRD) 59 (>60 ml/min/1.73 sqM); Potassium 4.4 mmol/L (3.5-5.1); Sodium 143 mmol/L (137-145); Total Bilirubin 0.4 mg/dL (0.2-1.3)
[2016-10-29 19:59] LABS: Creatine Kinase 73 U/L (30-135)
[2016-10-29 20:11] LABS: Creatine Kinase MB 0.6 ng/mL (0.0-2.4); Troponin I <0.012 ng/mL (0.000-0.034)
[2016-10-29 20:17] LABS: Partial Thromboplastin Time 22.2 sec (22.0-30.0); Prothrombin Time 9.8 sec (9.0-12.0)
--- NOTE | 2016-10-29 20:24 | XR ---
EXAMINATION TYPE: XR chest 2V DATE OF EXAM: 10/29/2016 8:17 PM COMPARISON: 10/04/2016 HISTORY: Difficulty breathing TECHNIQUE: Frontal and lateral views of the chest are obtained. FINDINGS: There is infiltrate at the right cardiac border. There is no definite heart failure. There is coarsening of interstitial pulmonary markings. There are no hilar masses. Thoracic aorta shows mi ld atheromatous change. There are chest leads. IMPRESSION: There is new right middle lobe pneumonia compared to old exam. Pulmonate fibrotic change s.
[2016-10-29] MEDS ORDERED: LEVOFLOXACIN 750MG-D5W PMX 750 MG in DEXTROSE/WATER 1 150ML.BAG IVPB STA (20:51)
[2016-10-29 21:43] LABS: Glucose,Whole Blood 348 mg/dL (75-99)
[2016-10-29] MEDS ORDERED: NITROGLYCERIN SL TABS 0.4 MG TAB SUBLINGUAL PRN (23:41)
[2016-10-30] MEDS: metFORMIN 500 MG TAB PO SCH ×3 (00:59→17:52)
[2016-10-30] MEDS: ATORVASTATIN 20 MG TAB PO SCH ×2 (00:59→22:04)
[2016-10-30] MEDS: PREGABALIN 100 MG CAP PO SCH ×3 (00:59→22:04)
[2016-10-30] MEDS: GABAPENTIN 300 MG CAP PO SCH ×3 (00:59→22:04)
[2016-10-30] MEDS: POTASSIUM CHLORIDE ER 20 MEQ TAB.ER PO SCH ×3 (00:59→22:04)
[2016-10-30] MEDS: MONTELUKAST 10 MG TAB PO SCH ×2 (00:59→22:04)
[2016-10-30] MEDS: traMADol 50 MG TAB PO PRN ×3 (01:10→22:10)
[2016-10-30] MEDS: INSULIN LISPRO (humaLOG) 300 UNIT/3 ML VIAL SQ SCH ×8 (01:11→17:50)
[2016-10-30] MEDS: methylPREDNISolone SOD SUCCI 125 MG/2 ML VIAL IV SCH ×3 (06:41→17:52)
[2016-10-30 07:34] LABS: Glucose,Whole Blood 372 mg/dL (75-99)
[2016-10-30] MEDS ORDERED: INSULIN GLARGINE 100 UNIT/ML 10 ML VIAL SQ SCH (09:00)
[2016-10-30] MEDS: BUTA/APAP/CAF/COD 50-325-40-30 CAP PO PRN (09:22)
[2016-10-30] MEDS: IPRATROPIUM-ALBUTEROL 3 ML NEB INHALATION PRN ×3 (11:36→18:56)
[2016-10-30 11:49] LABS: Glucose,Whole Blood 299 mg/dL (75-99)
[2016-10-30 13:54] LABS: Hemoglobin A1C 9.2 % (4.2-6.1)
[2016-10-30] MEDS ORDERED: Magnesium Replacement Protocol 1 EACH MISC MISCELLANE PRN (14:58)
[2016-10-30] MEDS: MAGNESIUM SULFATE-D5W PMX 1 GM in DEXTROSE/WATER 1 100ML.BAG IVPB SCH ×3 (15:42→18:35)
[2016-10-30] MEDS: FUROSEMIDE 80 MG TAB PO SCH (15:44)
[2016-10-30] MEDS: SODIUM CHLORIDE 0.9% 1,000 ML IV SCH (15:45)
[2016-10-30 17:08] LABS: Glucose,Whole Blood 374 mg/dL (75-99)
[2016-10-30] MEDS ORDERED: INSULIN REGULAR BOLUS (FROM DRIP BAG) IV ONE (17:17)
[2016-10-30] MEDS: INSULIN REGULAR 100 UNIT in SODIUM CHLORIDE 0.9% 100 ML IV SCH (18:28)
[2016-10-30 19:03] LABS: Glucose,Whole Blood 406 mg/dL (75-99)
[2016-10-30 20:01] LABS: Glucose,Whole Blood 429 mg/dL (75-99)
[2016-10-30 20:25] LABS: Glucose,Whole Blood 323 mg/dL (75-99)
[2016-10-30 21:12] LABS: Glucose,Whole Blood 304 mg/dL (75-99)
[2016-10-30 21:50] LABS: Glucose,Whole Blood 270 mg/dL (75-99)
--- NOTE | 2016-10-30 21:53 | HP ---
DATE OF SERVICE: 10/30/2016 CHIEF COMPLAINT: Difficulty in breathing. HISTORY OF PRESENT ILLNESS: Ms. Sam is a 51-year-old female with a past medical history of COPD, diabetes mellitus, morbid obesity, heart failure, sleep apnea, thyroid disorder, coming to the hospital with a chief complaint of difficulty in breathing for the past 3 to 4 days. Patient states that she started to have cough and that difficulty in breathing has been worsened. Patient also complains of some chills, but no recorded temperatures at home. Patient is on 4L of oxygen at home and even with that, she was having difficulty in breathing and her difficulty in breathing would worsen with any kind of physical activity. Patient denies having any other complaints of nausea, vomiting, diarrhea. Patient denies having any chest pains or palpitations. The patient denies having any loss of consciousness or tingling or numbness in her extremities or weakness of her extremities. Patient denies having any sick contacts. Patient states that she has been compliant with her medications. The patient is on CPAP at night and has been using it during her sleep at night. Patient was also told that she has obesity hypoventilation syndrome and she follows with pulmonary, Dr. Maciej Avila. REVIEW OF SYSTEMS: All 13 review of systems are done and negative except for the ones mentioned in the HPI. PAST MEDICAL HISTORY: Significant for COPD, diabetes mellitus, hypertension, hyperlipidemia, morbid obesity, gout, thyroid disorder. ALLERGIES: No known drug allergies. Patient's home medications: 1. Fioricet 1 to 2 capsules p.o. q.4.h. p.r.n. for headaches. 2. Z-Riki. 3. Uloric 80 mg p.o. daily. 4. Pepcid 20 mg p.o. daily. 5. Lexapro 10 mg p.o. daily. 6. Sliding scale of insulin. 7. Neurontin 300 mg p.o. b.i.d. 8. Lasix 80 mg p.o. b.i.d. 9. Ferrous sulfate 325 mg p.o. daily. 10. Albuterol inhalation solution. 11. Lantus 120 units subcu daily. 12. Lopressor 12.5 mg p.o. daily. 13. Loratadine 10 mg p.o. daily. 14. Zestril 5 mg p.o. daily. 15. Zocor 40 mg p.o. q.h.s. 16. Lyrica 100 mg p.o. b.i.d. 17. Potassium chloride 20 mEq b.i.d. 18. Singulair 10 mg p.o. q.h.s. 19. Metformin 1000 mg p.o. b.i.d. 20. Tramadol 50 mg p.o. 4 times a day p.r.n. for pain. 21. Breo Ellipta 1 puff inhalation b.i.d. 22. Nitrostat 0.4 mg sublingual q.5 minutes p.r.n. for chest pain. PAST SURGICAL HISTORY: and left carpal tunnel surgery. SOCIAL HISTORY: Former smoker, quit in 2007; former alcoholic, quit in 2007. Family history of diabetes mellitus, COPD. On examination, patient's vitals: Temperature 96.6, heart rate 89, respiratory rate 18, blood pressure 160/83, saturating at 95% on 4L of nasal cannula. GENERAL: Patient is morbidly obese, has ( ) facies, appears to be in no acute respiratory distress. Head is atraumatic, but has a pinkish discoloration. EYES: No pallor. Red conjunctivae. Neck is short. RESPIRATORY: Distant bilateral breath sounds. A few coarse breath sounds. No wheeze appreciated. CARDIOVASCULAR: Distant heart sounds. S1, S2 heard. ABDOMEN: The patient has huge abdomen, but nontender to palpation. Bowel sounds are positive. Organomegaly difficult to appreciate. EXTREMITIES: Chronic venous stasis changes. Mild pink in color. No signs of infection. Mild pitting edema. GLASS CRUSHER: Awake, alert, oriented x3. No focal deficits. MUSCULOSKELETAL: Morbidly obese. PSYCHIATRIC: Appropriate mood and affect. Patient's labs: White count of 5.2, hemoglobin is 11.8, platelets of 201. Sodium 143, potassium 4.4, chloride 94, bicarb 39, BUN 32, creatinine 0.99. Blood sugars have been in 300 to 400 range. Hemoglobin A1c 9.2. Magnesium 1.3. Albumin 3.6. Troponin less than 0.012. Patient has had a chest x-ray in the ED showing right middle lobe pneumonia. ASSESSMENT: 1. Community-acquired pneumonia, right middle lobe. 2. Acute exacerbation of chronic obstructive pulmonary disease. 3. Chronic hypercapnic respiratory failure. 4. Obesity hypoventilation syndrome. 5. Morbid obesity with body mass index of 57.5. 6. Type 2 diabetes mellitus, poorly controlled, insulin-dependent, A1c of 9.2. 7. Hypertension. 8. Hyperlipidemia. 9. History of gout. 10. Chronic venous stasis. 11. Hypomagnesemia. PLAN: The patient has been started on levofloxacin. Will continue with that. Continue with breathing treatments and IV steroids. Will resume her home medications. Patient will be on CPAP at night. Patient is currently on an insulin drip due to hyperglycemia and will continue with the current medication regimen. Overall prognosis is guarded. I discussed with the patient about her morbid obesity. She said she follows with her PCP and is being considered for gastric sleeve surgery and further recommendations to follow depending on the progress of the patient. TOSIN
[2016-10-30] MEDS: LEVOFLOXACIN 750MG-D5W PMX 750 MG in DEXTROSE/WATER 1 150ML.BAG IVPB SCH (22:02)
[2016-10-30 22:37] LABS: Glucose,Whole Blood 301 mg/dL (75-99)
[2016-10-30 23:09] LABS: Glucose,Whole Blood 322 mg/dL (75-99)
[2016-10-31] MEDS: INSULIN REGULAR 100 UNIT in SODIUM CHLORIDE 0.9% 100 ML IV SCH ×3 (00:10→19:04)
[2016-10-31 00:11] LABS: Glucose,Whole Blood 323 mg/dL (75-99)
[2016-10-31] MEDS: methylPREDNISolone SOD SUCCI 125 MG/2 ML VIAL IV SCH ×4 (00:11→17:26)
[2016-10-31 00:31] LABS: Glucose,Whole Blood 318 mg/dL (75-99)
[2016-10-31 01:18] LABS: Glucose,Whole Blood 294 mg/dL (75-99)
[2016-10-31 01:56] LABS: Glucose,Whole Blood 281 mg/dL (75-99)
[2016-10-31 02:46] LABS: Glucose,Whole Blood 286 mg/dL (75-99)
[2016-10-31 03:15] LABS: Glucose,Whole Blood 254 mg/dL (75-99)
[2016-10-31 03:48] LABS: Glucose,Whole Blood 234 mg/dL (75-99)
[2016-10-31 05:33] LABS: Glucose,Whole Blood 192 mg/dL (75-99)
[2016-10-31 07:43] LABS: Glucose,Whole Blood 196 mg/dL (75-99)
[2016-10-31] MEDS: metFORMIN 500 MG TAB PO SCH ×2 (08:06→17:25)
[2016-10-31] MEDS: FUROSEMIDE 80 MG TAB PO SCH ×2 (08:06→17:25)
[2016-10-31] MEDS: ALLOPURINOL 100 MG TAB PO SCH ×2 (08:06→20:00)
[2016-10-31] MEDS: METOPROLOL TARTRATE 12.5 MG TAB PO SCH (08:06)
[2016-10-31] MEDS: GABAPENTIN 300 MG CAP PO SCH ×2 (08:06→20:01)
[2016-10-31] MEDS: LISINOPRIL 5 MG TAB PO SCH (08:06)
[2016-10-31] MEDS: POTASSIUM CHLORIDE ER 20 MEQ TAB.ER PO SCH ×2 (08:06→20:01)
[2016-10-31] MEDS: FERROUS SULFATE 325 MG TAB PO SCH (08:06)
[2016-10-31] MEDS: INSULIN LISPRO (humaLOG) 300 UNIT/3 ML VIAL SQ SCH ×3 (08:06→19:02)
[2016-10-31] MEDS: FAMOTIDINE 20 MG TAB PO SCH (08:06)
[2016-10-31] MEDS: PREGABALIN 100 MG CAP PO SCH ×2 (08:06→20:01)
[2016-10-31] MEDS: IPRATROPIUM-ALBUTEROL 3 ML NEB INHALATION PRN ×4 (08:49→19:54)
[2016-10-31] MEDS: BUTA/APAP/CAF/COD 50-325-40-30 CAP PO PRN ×2 (09:14→17:26)
[2016-10-31 10:05] LABS: Glucose,Whole Blood 233 mg/dL (75-99)
[2016-10-31 10:07] LABS: Anion Gap 11 mmol/L; Blood Urea Nitrogen 34 mg/dL (7-17); Calcium 9.8 mg/dL (8.4-10.2); Carbon Dioxide 32 mmol/L (22-30); Chloride 95 mmol/L (98-107); Glucose 247 mg/dL (74-99); Non-African American GFR(MDRD) >60 (>60 ml/min/1.73 sqM); Potassium 4.9 mmol/L (3.5-5.1); Sodium 138 mmol/L (137-145)
[2016-10-31 13:10] LABS: Glucose,Whole Blood 108 mg/dL (75-99)
[2016-10-31 14:18] LABS: Glucose,Whole Blood 251 mg/dL (75-99)
[2016-10-31 15:52] LABS: Glucose,Whole Blood 199 mg/dL (75-99)
[2016-10-31] MEDS: SODIUM CHLORIDE 0.9% 1,000 ML IV SCH (16:22)
[2016-10-31 18:07] LABS: Glucose,Whole Blood 186 mg/dL (75-99)
[2016-10-31] MEDS: BENZOCAINE/MENTHOL LOZENG 1 EACH LOZENGE MUCOUS MEM PRN (19:02)
[2016-10-31] MEDS: LEVOFLOXACIN 750MG-D5W PMX 750 MG in DEXTROSE/WATER 1 150ML.BAG IVPB SCH (20:00)
[2016-10-31] MEDS: MONTELUKAST 10 MG TAB PO SCH (20:01)
[2016-10-31] MEDS: ATORVASTATIN 20 MG TAB PO SCH (20:01)
[2016-10-31 20:15] LABS: Glucose,Whole Blood 311 mg/dL (75-99)
[2016-10-31 22:15] LABS: Glucose,Whole Blood 240 mg/dL (75-99)
[2016-11-01] MEDS: methylPREDNISolone SOD SUCCI 125 MG/2 ML VIAL IV SCH ×5 (00:10→23:10)
[2016-11-01] MEDS: traMADol 50 MG TAB PO PRN (00:21)
[2016-11-01 00:24] LABS: Glucose,Whole Blood 241 mg/dL (75-99)
[2016-11-01 02:18] LABS: Glucose,Whole Blood 217 mg/dL (75-99)
[2016-11-01 04:20] LABS: Glucose,Whole Blood 191 mg/dL (75-99)
[2016-11-01] MEDS: INSULIN REGULAR 100 UNIT in SODIUM CHLORIDE 0.9% 100 ML IV SCH ×2 (04:28→18:04)
[2016-11-01 06:09] LABS: Glucose,Whole Blood 160 mg/dL (75-99)
[2016-11-01 07:34] VITALS: RESP 20
[2016-11-01 08:00] LABS: Glucose,Whole Blood 185 mg/dL (75-99)
--- NOTE | 2016-11-01 08:09 | PN ---
DATE OF SERVICE: 10/31/2016 CHIEF COMPLAINT: Difficulty in breathing. INTERVAL HISTORY: Ms. Sam is a 51-year-old female with a past medical history of COPD, type 2 mellitus, morbid obesity, heart failure, sleep apnea, thyroid disorder, admitted to the hospital with the chief complaint of difficulty in breathing that has been going on for the past 3 to 4 days. Patient was having cough with productive sputum and patient did have a chest x-ray showing right lower lobe pneumonia and so she is currently being treated with antibiotics, breathing treatments and IV steroids. Today, the patient is lying in bed. She states that her breathing is still the same. She does not see much improvement in her symptoms, but she states that she is able to walk back to the bathroom without getting more short of breath. REVIEW OF SYSTEMS: CONSTITUTIONAL: Denies having any fevers, chills, or rigors. RESPIRATORY: Complains of difficulty in breathing, cough, a little better but still productive. CARDIAC: No chest pain or palpitations. GI: No abdominal pain, nausea, vomiting, or diarrhea. : No dysuria or hematuria. Patient's medications have been reviewed. She is on Fioricet, albuterol, DuoNeb breathing treatments, allopurinol, Lipitor, Pepcid, ferrous sulfate, Lasix, gabapentin, on an insulin drip, levofloxacin, lisinopril, metformin, Solu-Medrol, metoprolol, Singulair, potassium supplements, pregabalin, Tramadol. On examination, patient's vital signs, temperature is 96.7, heart rate 85, respiratory rate 18, blood pressure 117/79, saturating at 96% on 4 L of nasal cannula. On general examination, patient is morbidly obese. She looks much better and compared to plethoric face that she had yesterday. Head is atraumatic, normocephalic. EYES: Pupils, round, and reactive to light. No pallor. Neck is short, difficulty appreciating any masses. RESPIRATORY: Distant bilateral breath sounds positive. A few coarse breath sounds. No wheezes appreciated. CARDIOVASCULAR: Distant heart sounds, S1, S2 heard. ABDOMEN: Patient has huge abdomen, difficult for palpation, but nontender. Bowel sounds positive. EXTREMITIES: Chronic venous stasis, mild pinkish discoloration of bilateral lower extremities. No signs of infection, mild pitting edema. CHIEF SERVICE DISPATCHER: Alert, awake, oriented x3. No focal neurological deficits. MUSCULOSKELETAL: Morbid obesity. PSYCHIATRIC: Appropriate mood and affect. PATIENT'S LABS: White count of 5.2, hemoglobin is 11.8. Sodium 138, potassium 4.9, chloride 95, bicarb 32, BUN 34, creatinine is 0.80. ASSESSMENT AND PLAN: 1. Community-acquired pneumonia, right middle lobe. 2. Acute exacerbation of chronic obstructive pulmonary disease secondary to #1. 3. Chronic hypercapnic respiratory failure. 4. Obesity, hypoventilation syndrome. 5. Morbid obesity with body mass index of 57.5. 6. Type 2 diabetes mellitus, poorly controlled insulin-dependent with A1c of 9.2. 7. Hypertension. 8. Hyperlipidemia. 9. History of gout. 10. Chronic venous stasis. 11. Hypomagnesemia. PLAN: The plan is to continue the patient on IV antibiotics, IV steroids and breathing treatments. Patient to be continued on IV insulin drip due to hyperglycemia. Overall prognosis is guarded and we will also consult Pulmonary, Dr. Alisson Avila who is her dimension mill worker. Further recommendations to follow depending on the progress of the patient. EMILD
[2016-11-01] MEDS: INSULIN LISPRO (humaLOG) 300 UNIT/3 ML VIAL SQ SCH ×3 (08:16→18:01)
[2016-11-01] MEDS: ALLOPURINOL 100 MG TAB PO SCH ×2 (08:17→20:11)
[2016-11-01] MEDS: POTASSIUM CHLORIDE ER 20 MEQ TAB.ER PO SCH ×2 (08:17→20:11)
[2016-11-01] MEDS: FAMOTIDINE 20 MG TAB PO SCH (08:17)
[2016-11-01] MEDS: FUROSEMIDE 80 MG TAB PO SCH ×2 (08:17→16:04)
[2016-11-01] MEDS: LISINOPRIL 5 MG TAB PO SCH (08:17)
[2016-11-01] MEDS: metFORMIN 500 MG TAB PO SCH ×2 (08:17→18:01)
[2016-11-01] MEDS: FERROUS SULFATE 325 MG TAB PO SCH (08:17)
[2016-11-01] MEDS: GABAPENTIN 300 MG CAP PO SCH ×2 (08:17→20:11)
[2016-11-01] MEDS: METOPROLOL TARTRATE 12.5 MG TAB PO SCH (08:17)
[2016-11-01] MEDS: PREGABALIN 100 MG CAP PO SCH ×2 (08:18→20:11)
[2016-11-01] MEDS: IPRATROPIUM-ALBUTEROL 3 ML NEB INHALATION PRN ×2 (09:07→12:55)
[2016-11-01 10:14] LABS: Glucose,Whole Blood 246 mg/dL (75-99)
[2016-11-01] MEDS: BUTA/APAP/CAF/COD 50-325-40-30 CAP PO PRN (10:29)
[2016-11-01] MEDS: BENZOCAINE/MENTHOL LOZENG 1 EACH LOZENGE MUCOUS MEM PRN (10:29)
[2016-11-01 11:03] LABS: Anion Gap 13 mmol/L; Blood Urea Nitrogen 37 mg/dL (7-17); Calcium 9.9 mg/dL (8.4-10.2); Carbon Dioxide 32 mmol/L (22-30); Chloride 95 mmol/L (98-107); Glucose 260 mg/dL (74-99); Non-African American GFR(MDRD) >60 (>60 ml/min/1.73 sqM); Potassium 5.1 mmol/L (3.5-5.1); Sodium 140 mmol/L (137-145)
[2016-11-01 11:54] LABS: Glucose,Whole Blood 228 mg/dL (75-99)
--- NOTE | 2016-11-01 13:25 | P.CNPUL ---
History of Present Illness Consult date: 11/01/16 Reason for consult: dyspnea, cough, COPD Chief complaint: Cough, SOB History of present illness: 51 year old female presented to the ED c/o Shortness of breath and cough for over a week. SHe states she saw her PCP and was told everything was ok. She says at the time she was more SOB than usual. She denies fevers and chills. She does now have a CPAP and states she has been wearing it for about 8 hours a night at home. She doesn't get as good of sleep in the hospital. She states she is feeling better overall with it. She is able to take deeper breaths. She did step on a piece of glass at home and has a right foot wound as well. She states she is interested in gastric bypass and losing weight. Past Medical History Past Medical History: Asthma, Chest Pain / Angina, Heart Failure, COPD, Diabetes Mellitus, Hyperlipidemia, Hypertension, Neurologic Disorder, Osteoarthritis (OA), Pneumonia, Respiratory Disorder, Sleep Apnea/CPAP/BIPAP, Syncope, Thyroid Disorder Additional Past Medical History / Comment(s): GOUT, NEUROPATHY-FEET, sleep apnea but won't wear cpap, has home 02 4 liters n/c atc, past resp failure, hypothyroid,,lt lower lobe nodule-radiation therapy(,unsuccesful bx) History of Any Multi-Drug Resistant Organisms: None Reported Past Surgical History: Section Additional Past Surgical History / Comment(s): LT CARPAL TUNNEL, 3 unsuccessful attempts at lt lobe bx Past Anesthesia/Blood Transfusion Reactions: No Reported Reaction Additional Past Anesthesia/Blood Transfusion Reaction / Comment(s): CLAUSTERPHOBIA Past Psychological History: No Psychological Hx Reported Additional Psychological History / Comment(s): PT LIVES AT HOME WITH A FRIEND, CURRENTLY RECIEVING HOME CARE SERVICES THRU [facility] Smoking Status: Former smoker Past Alcohol Use History: None Reported Additional Past Alcohol Use History / Comment(s): STARTED SMOKING 1975-STOPPED 2007 Past Drug Use History: None Reported - Past Family History Father Family Medical History: COPD, Diabetes Mellitus Mother History Unknown: Yes Family Medical History: No Reported History Additional Family Medical History / Comment(s): AT AGE 43 FROM SUICIDE Medications and Allergies Home Medications Medication Instructions Recorded Confirmed Type Famotidine [Pepcid] 20 mg PO DAILY 08/19/14 10/29/16 History Loratadine 10 mg PO DAILY PRN 08/19/14 10/29/16 History Ferrous Sulfate [Iron (65 MG 325 mg PO DAILY 08/20/14 10/29/16 History Elemental)] Nitroglycerin Sl Tabs [Nitrostat] 0.4 mg SUBLINGUAL Q5M PRN 08/20/14 10/29/16 History metFORMIN HCL 1,000 mg PO AC-BID 08/20/14 10/29/16 History Lisinopril [Zestril] 5 mg PO DAILY 03/13/15 10/29/16 History Gabapentin [Neurontin] 300 mg PO BID 03/15/16 10/29/16 History Simvastatin [Zocor] 40 mg PO HS 03/15/16 10/29/16 History Febuxostat [Uloric] 80 mg PO DAILY 05/04/16 10/29/16 History Umeclidinium Brm/Vilanterol Tr 1 puff INHALATION RT-DAILY 05/04/16 10/29/16 History [Anoro Ellipta 62.5-25 Mcg INH] Furosemide [Lasix] 80 mg PO BID@0900,1600 06/08/16 10/29/16 History Insulin Glargine [Lantus] 120 unit SQ DAILY@0900 06/08/16 10/29/16 History Pregabalin [Lyrica] 100 mg PO BID 06/08/16 10/29/16 History Metoprolol Tartrate [Lopressor] 12.5 mg PO DAILY 07/18/16 10/29/16 History Montelukast [Singulair] 10 mg PO HS 07/18/16 10/29/16 History Albuterol Inhaler [Ventolin Hfa 1 - 2 puff INHALATION RT-Q6H PRN 08/24/16 History Inhaler] Azithromycin [Zithromax Z-pack] See Taper PO DIRECTED 10/29/16 10/29/16 History Ipratropium-Albuterol Nebulize 3 ml INHALATION RT-QID 10/29/16 10/29/16 History [Duoneb 0.5 mg-3 mg/3 ml Soln] Ipratropium-Albuterol Nebulize 3 ml INHALATION RT-QID 10/29/16 10/29/16 History [Duoneb 0.5 mg-3 mg/3 ml Soln] Allergies Allergy/AdvReac Type Severity Reaction Status Date / Time No Known Allergies Allergy Verified 10/29/16 20:04 Physical Exam Osteopathic Statement: *. No significant issues noted on an osteopathic structural exam other than those noted in the History and Physical/Consult. Vitals: Vital Signs Temp Pulse Pulse Resp BP BP Pulse Ox 11/01/16 13:06 82 11/01/16 12:55 86 11/01/16 09:22 84 11/01/16 09:08 84 11/01/16 07:00 97.5 F L 71 20 127/81 94 L 11/01/16 02:18 124/71 10/31/16 23:00 97.0 F L 84 18 96/46 95 10/31/16 20:10 88 10/31/16 19:54 84 10/31/16 16:30 86 10/31/16 16:20 88 Intake and Output 10/31/16 11/01/16 11/01/16 22:59 06:59 14:59 Intake Total 1601.717 819.683 48.183 Balance 1601.717 819.683 48.183 Intake: Intake, IV Titration 61.717 69.683 48.183 Amount Insulin Regular 100 unit 61.717 69.683 48.183 In Sodium Chloride 0.9% 100 ml @ Titrate IV .Q0M [facility] Rx#:[id number] Oral 1540 750 Other: Voiding Method Toilet # Voids 3 1 Gen.: Alert and oriented x 3, NAD, morbidly obese Cardiovascular: Regular rate and rhythm, S1/S2 Lungs: Diminished breath sounds bilaterally Abdomen: Soft nontender nondistended positive bowel sounds Extremities: + edema, RLE foot wound, dressing C/D/I Results - Laboratory Findings CBC and BMP: 10/29/16 19:25 11/01/16 09:25 PT/INR, D-dimer PT 9.8 sec (9.0-12.0) 10/29/16 19:25 INR 1.0 (<1.1) 10/29/16 19:25 Abnormal lab findings: Abnormal Labs 10/29/16 10/30/16 10/30/16 21:40 07:32 11:47 Chloride Carbon Dioxide BUN Glucose POC Glucose (mg/dL) 348 H 372 H 299 H 10/30/16 10/30/16 10/30/16 17:05 19:01 19:41 Chloride Carbon Dioxide BUN Glucose POC Glucose (mg/dL) 374 H 406 H 429 H 10/30/16 10/30/16 10/30/16 20:23 21:01 21:47 Chloride Carbon Dioxide BUN Glucose POC Glucose (mg/dL) 323 H 304 H 270 H 10/30/16 10/30/16 10/30/16 22:35 23:07 23:51 Chloride Carbon Dioxide BUN Glucose POC Glucose (mg/dL) 301 H 322 H 323 H 10/31/16 10/31/16 10/31/16 00:28 01:16 01:54 Chloride Carbon Dioxide BUN Glucose POC Glucose (mg/dL) 318 H 294 H 281 H 10/31/16 10/31/16 10/31/16 02:44 03:13 03:46 Chloride Carbon Dioxide BUN Glucose POC Glucose (mg/dL) 286 H 254 H 234 H 10/31/16 10/31/16 10/31/16 05:31 07:39 09:38 Chloride 95 L Carbon Dioxide 32 H BUN 34 H Glucose 247 H POC Glucose (mg/dL) 192 H 196 H 10/31/16 10/31/16 10/31/16 10:00 13:05 14:14 Chloride Carbon Dioxide BUN Glucose POC Glucose (mg/dL) 233 H 108 H 251 H 10/31/16 10/31/16 10/31/16 15:50 18:05 20:05 Chloride Carbon Dioxide BUN Glucose POC Glucose (mg/dL) 199 H 186 H 311 H 10/31/16 11/01/16 11/01/16 22:12 00:19 02:08 Chloride Carbon Dioxide BUN Glucose POC Glucose (mg/dL) 240 H 241 H 217 H 11/01/16 11/01/16 11/01/16 04:06 06:07 07:58 Chloride Carbon Dioxide BUN Glucose POC Glucose (mg/dL) 191 H 160 H 185 H 11/01/16 11/01/16 11/01/16 09:25 10:07 11:50 Chloride 95 L Carbon Dioxide 32 H BUN 37 H Glucose 260 H POC Glucose (mg/dL) 246 H 228 H - Diagnostic Findings Chest x-ray: report reviewed, image reviewed Assessment and Plan Plan: Acute on chronic hypoxic and hypercapnic respiratory failure RML pneumonia AECOPD and Asthma, severe persistent Pulmonary hypertension and cor pulmonale Morbid obesity LINDA/OHS, now on CPAP Mild to moderate pulmonary hypertension Left lung nodule, treated with radiation, PET positive DM2, uncontrolled, with diabetic neuropathy Dyslipidemia Hypertension Hypothryoidism Medical noncompliace O2 to maintain sat > or = 88% Pulmicort and Duonebs Singulair ABX: will consult ID for foot wound and pna Patient to wear CPAP nightly, she has been recently compliant Fluid restriction, I/O, daily weight Diuresis as able Outpatient evaluation for possible gastric bypass surgery Consult PT and OT, case management for possible rehab placement Outpatient recommendation for pulmonary rehab GI and DVT prophylaxis: Pepcid and Heparin IS and pulmonary hygiene Thank you for this consultation. We will continue to follow along.
[2016-11-01 14:03] VITALS: BMI 57.8
[2016-11-01 14:20] LABS: Glucose,Whole Blood 272 mg/dL (75-99)
[2016-11-01] MEDS: SODIUM CHLORIDE 0.9% 1,000 ML IV SCH (15:10)
[2016-11-01] MEDS: HEPARIN SODIUM,PORCINE 5,000 UNIT/ML 1 ML VIAL SQ SCH ×2 (16:04→23:09)
[2016-11-01 16:06] LABS: Glucose,Whole Blood 136 mg/dL (75-99)
[2016-11-01] MEDS: IPRATROPIUM-ALBUTEROL 3 ML NEB INHALATION SCH ×2 (16:08→20:04)
[2016-11-01 18:01] LABS: Glucose,Whole Blood 187 mg/dL (75-99)
[2016-11-01] MEDS: BUDESONIDE 0.5 MG/2 ML NEBU INHALATION SCH (20:04)
[2016-11-01] MEDS: MONTELUKAST 10 MG TAB PO SCH (20:11)
[2016-11-01] MEDS: ATORVASTATIN 20 MG TAB PO SCH (20:11)
[2016-11-01] MEDS: LEVOFLOXACIN 750MG-D5W PMX 750 MG in DEXTROSE/WATER 1 150ML.BAG IVPB SCH (20:12)
[2016-11-01 20:29] LABS: Glucose,Whole Blood 258 mg/dL (75-99)
[2016-11-01 22:14] LABS: Glucose,Whole Blood 196 mg/dL (75-99)
[2016-11-01] MEDS: BACITRACIN 500 UNIT/GM OINT 28.4 GM TUBE TOPICAL SCH (23:09)
[2016-11-02 00:20] LABS: Glucose,Whole Blood 206 mg/dL (75-99)
[2016-11-02] MEDS: IPRATROPIUM-ALBUTEROL 3 ML NEB INHALATION SCH ×4 (00:21→10:56)
[2016-11-02 02:19] LABS: Glucose,Whole Blood 176 mg/dL (75-99)
[2016-11-02 04:11] LABS: Glucose,Whole Blood 191 mg/dL (75-99)
[2016-11-02] MEDS: INSULIN REGULAR 100 UNIT in SODIUM CHLORIDE 0.9% 100 ML IV SCH (05:06)
[2016-11-02 06:28] LABS: Glucose,Whole Blood 172 mg/dL (75-99)
[2016-11-02] MEDS: methylPREDNISolone SOD SUCCI 125 MG/2 ML VIAL IV SCH ×2 (06:40→12:34)
--- NOTE | 2016-11-02 06:45 | PN ---
DATE OF SERVICE: 11/01/2016 INTERVAL HISTORY: Ms. Sam is a 51-year-old morbidly obese female with COPD, type 2 diabetes mellitus, heart failure, sleep apnea, thyroid disorder admitted to the hospital with a chief complaint of difficulty in breathing. Patient had a chest x-ray showing right lower lobe pneumonia and is currently being treated with antibiotics, breathing treatments and IV steroids. Today, the patient is sitting up in the bed. She states her breathing is still the same. Did not see much improvement in her symptoms, but states that she is able to walk back to the bathroom without getting short of breath. REVIEW OF SYSTEMS: CONSTITUTIONAL: Denies having any fever, chills or rigors. RESPIRATORY: Complaining of some cough. Difficulty in breathing getting better. CARDIAC: No chest pain or palpitations. GI: No abdominal pain, nausea, vomiting or diarrhea. : No dysuria or hematuria. Patient's medications have been reviewed. On examination, patient's vital signs: Temperature is 97, heart rate 79, respiratory rate 20, blood pressure 131/75, saturating at 95% on 5 L of nasal cannula. GENERAL EXAMINATION: Patient is morbidly obese, appears to be in no acute distress. HEAD: Atraumatic, normocephalic. EYES: Pupils round and reactive to light. No pallor. Neck is short, difficult to appreciate any masses. RESPIRATORY; Distant bilateral breath sounds are positive. A few coarse breath sounds heard in all lung garibay. No wheezes. CARDIOVASCULAR: Distant heart sounds. S1, S2 heard. ABDOMEN: The patient has a huge abdomen, difficulty for palpation, but nontender. Bowel sounds are positive. EXTREMITIES: Chronic venous stasis ulcer, mild pinkish discoloration of the bilateral lower extremities with mild pitting edema. ASSISTANT MANAGER: Alert, awake, oriented x3. No focal deficits. MUSCULOSKELETAL: Morbid obesity. PSYCHIATRIC: Appropriate mood and affect. PATIENT'S LABS: White count of 5.2, hemoglobin 11.8. Sodium 140, potassium 5.1, chloride 95, bicarb 32, BUN 37, creatinine 0.89. ASSESSMENT AND PLAN: 1. Community-acquired pneumonia right middle lobe. 2. Acute exacerbation of chronic obstructive pulmonary disease secondary to #1. 3. Chronic hypercapnic respiratory failure. 4. Obesity hypoventilation syndrome. 5. Morbid obesity with body mass index of 57.5. 6. Type 2 diabetes mellitus, poorly controlled, insulin dependent with an A1c of 9.2. 7. Hypertension. 8. Hyperlipidemia. 9. History of gout. 10. Chronic venous stasis. 11. Hypomagnesemia. 12. Foot ulcer, right lower extremity foot ulcer. PLAN: The plan is to continue the patient on IV antibiotics and breathing treatments and IV steroids. Patient has persistent hyperglycemia for which she is on an insulin drip. Infectious disease, Dr. Manzano, has been consulted for her left lower extremity ulcer. Pulmonary, Dr. Maciej Avila whom she follows as outpatient has been consulted. Further recommendations to follow depending on the progress of the patient. TOSIN
[2016-11-02] MEDS: BUDESONIDE 0.5 MG/2 ML NEBU INHALATION SCH (07:40)
[2016-11-02 07:43] VITALS: BP 141/85; TEMP 97
[2016-11-02] MEDS: ALLOPURINOL 100 MG TAB PO SCH (08:04)
[2016-11-02] MEDS: INSULIN LISPRO (humaLOG) 300 UNIT/3 ML VIAL SQ SCH ×2 (08:04→12:34)
[2016-11-02] MEDS: HEPARIN SODIUM,PORCINE 5,000 UNIT/ML 1 ML VIAL SQ SCH (08:04)
[2016-11-02] MEDS: metFORMIN 500 MG TAB PO SCH (08:04)
[2016-11-02] MEDS: FUROSEMIDE 80 MG TAB PO SCH (08:05)
[2016-11-02] MEDS: FERROUS SULFATE 325 MG TAB PO SCH (08:05)
[2016-11-02] MEDS: FAMOTIDINE 20 MG TAB PO SCH (08:05)
[2016-11-02] MEDS: BACITRACIN 500 UNIT/GM OINT 28.4 GM TUBE TOPICAL SCH (08:05)
[2016-11-02 08:06] LABS: Glucose,Whole Blood 199 mg/dL (75-99)
[2016-11-02] MEDS: LISINOPRIL 5 MG TAB PO SCH (08:06)
[2016-11-02] MEDS: POTASSIUM CHLORIDE ER 20 MEQ TAB.ER PO SCH (08:06)
[2016-11-02] MEDS: PREGABALIN 100 MG CAP PO SCH (08:06)
[2016-11-02] MEDS: GABAPENTIN 300 MG CAP PO SCH (08:06)
[2016-11-02] MEDS: METOPROLOL TARTRATE 12.5 MG TAB PO SCH (08:06)
[2016-11-02] MEDS: BENZOCAINE/MENTHOL LOZENG 1 EACH LOZENGE MUCOUS MEM PRN (09:26)
[2016-11-02 09:55] LABS: Glucose,Whole Blood 327 mg/dL (75-99)
[2016-11-02 11:08] VITALS: PULSE 76
--- NOTE | 2016-11-02 12:02 | CONS ---
DATE OF CONSULTATION: 11/01/2016. REASON FOR CONSULTATION: 1. Pneumonia. 2. Right foot laceration and diabetic foot ulcer. HISTORY OF PRESENT ILLNESS: The patient is a 51-year-old female who presented to [facility] on the 10/29/2016 with increasing shortness of breath. Her symptoms have been going on for about 3 to 4 days prior to presentation to the hospital. She did have difficulty breathing especially with minimal exertion. The patient also had a cough productive of some greenish sputum. The patient denies having hemoptysis and no significant pleuritic chest pain. The patient denies any high-grade fever, but did have some chills. The patient did have a chest x-ray done, which did show right middle lung pneumonia. Patient has been admitted to the hospital and was started on Levaquin. The patient also had sustained laceration to the right foot medial border at the base of the first toe and the patient said she did drop a sharp object on it about 10 days ago. The patient has been doing some local care to it and no significant swelling, redness or any drainage. The patient denies having any abdominal pain and no diarrhea. I was asked to see the patient today for management of her likely pneumonia and as well as her diabetic foot ulcer. REVIEW OF SYSTEMS: CONSTITUTIONAL: Positive for weakness and chills. EYES: No complaint. ENT: No complaint. RESPIRATORY: As per HPI. CARDIOVASCULAR: No complaint. GENITOURINARY: No complaint. GASTROINTESTINAL: No complaint. MUSCULOSKELETAL: No complaint. INTEGUMENTARY: As per HPI. PSYCHOLOGIC: No complaint. ENDOCRINE: No complaint. NEUROLOGIC: No complaint. PAST MEDICAL HISTORY: Significant for asthma, COPD, diabetes mellitus, hypertension, hyperlipidemia, osteoarthritis, pneumonia, respiratory disorder, sleep apnea, hypothyroidism and syncope. PAST SURGICAL HISTORY: , left carpal tunnel. SOCIAL HISTORY: Former smoker, quit back in 2007, smoked from 1975, almost until 2007. Denies any drinking or drug use. FAMILY HISTORY: Father with history of COPD and diabetes. Mother at the age of 43 from suicide. ALLERGIES: No known drug allergies. MEDICATIONS: Currently include the patient is Fioricet, DuoNeb, Zyloprim, Lipitor, Cepacol lozenges, Pulmicort, Pepcid, iron sulfate, Lasix, Neurontin, heparin, Humalog, levofloxacin, Zestril, Glucophage, Solu-Medrol, Lopressor, Singulair, Nitrostat, K-Dur, Lyrica and Ultram. On examination, blood pressure is 113/79 with a pulse of 85, temperature 96.7. She is 96% on 4 liters nasal cannula. General description is a middle-age female up in the bed in no distress. No tachypnea or accessory muscle of respiration use. HEENT examination shows no pedal scleral icterus. Oral mucous membrane dry. NECK: Trachea central. There is no thyromegaly. LUNGS: Unlabored breathing. Some coarse breath sounds, no wheeze. HEART: S1, S2. Regular rate and rhythm. ABDOMEN: Soft, no tenderness. EXTREMITIES: No edema of feet. Examination of right foot on the medial aspect, there is a small laceration with no significant surrounding erythema. No drainage. NEUROLOGICAL: The patient is awake, alert, oriented x3. Mood and affect normal. LABS: Hemoglobin 11.8, white count 5.2, BUN of 34, creatinine 0.8. Blood culture obtained, currently pending. No sputum was collected. Chest x-ray with right lung pneumonia. DIAGNOSTIC IMPRESSION AND PLAN: 1. Patient with right middle lobe pneumonia, likely community acquired. The patient has underlying chronic obstructive pulmonary disease. Likely will need to cover for the usual respiratory pathogens such as strep, Haemophilus influenzae. 2. Patient had diabetic foot ulcer with no evidence of any active cellulitis. PLAN: 1. Will obtain sputum for gram stain cultures and sensitivity. 2. We will apply bacitracin to the right diabetic foot ulcer followed by the bandaged to be changed twice a day. 3. Will continue the patient Levaquin; however, will add Rocephin 1 gram daily. 4. Will follow up on clinical condition and cultures to further adjust the medications as needed. Thank you for this consultation. Will follow this patient along with you. TOSIN
[2016-11-02 12:07] LABS: Glucose,Whole Blood 201 mg/dL (75-99)
--- NOTE | 2016-11-02 13:39 | P.PN ---
Subjective Principal diagnosis: AECOPD Patient seen and examined. Patient states she is feeling a little bit better today. She states she needs a new mask for her CPAP. She was able to wear for 6 Hours last night. She states she is still coughing and having congestion. She has multiple inhalers and nebulizer treatments at home. She is confused about which when she supposed to be using. She currently has Symbicort, Anoro, Pulmicort, DuoNeb nebs, Ventolin. Objective - Vital Signs Vital signs: Vital Signs Temp 97 F L 11/02/16 07:00 Pulse 76 11/02/16 11:07 Resp 20 11/02/16 07:00 BP 141/85 11/02/16 07:00 Pulse Ox 97 11/02/16 07:40 Intake & Output 11/01/16 11/02/16 11/02/16 18:59 06:59 18:59 Intake Total 88.867 2800.116 64.883 Balance 88.867 2800.116 64.883 Weight 177.581 kg Intake: Intake, IV Titration 88.867 100.116 64.883 Amount Insulin Regular 100 unit 88.867 100.116 64.883 In Sodium Chloride 0.9% 100 ml @ Titrate IV .Q0M [facility] Rx#:[id number] Oral 2700 Other: Voiding Method Toilet # Voids 4 2 - Exam Gen.: Alert and oriented x 3, NAD, morbidly obese Cardiovascular: Regular rate and rhythm, S1/S2 Lungs: Diminished breath sounds bilaterally Abdomen: Soft nontender nondistended positive bowel sounds Extremities: + edema, RLE foot wound, dressing C/D/I - Labs CBC & Chem 7: 10/29/16 19:25 11/01/16 09:25 Labs: Abnormal Lab Results - Last 24 Hours (Table) 11/01/16 11/01/16 11/01/16 Range/Units 14:10 16:03 17:59 POC Glucose (mg/dL) 272 H 136 H 187 H (75-99) mg/dL 11/01/16 11/01/16 11/02/16 Range/Units 20:05 22:04 00:17 POC Glucose (mg/dL) 258 H 196 H 206 H (75-99) mg/dL 11/02/16 11/02/16 11/02/16 Range/Units 02:09 04:02 06:08 POC Glucose (mg/dL) 176 H 191 H 172 H (75-99) mg/dL 11/02/16 11/02/16 11/02/16 Range/Units 08:03 09:51 12:00 POC Glucose (mg/dL) 199 H 327 H 201 H (75-99) mg/dL Assessment and Plan Plan: Acute on chronic hypoxic and hypercapnic respiratory failure RML pneumonia AECOPD and Asthma, severe persistent Pulmonary hypertension and cor pulmonale Morbid obesity LINDA/OHS, now on CPAP Mild to moderate pulmonary hypertension Left lung nodule, treated with radiation, PET positive DM2, uncontrolled, with diabetic neuropathy Dyslipidemia Hypertension Hypothryoidism Medical noncompliace O2 to maintain sat > or = 88% Pulmicort and Duonebs Singulair ABX: will consult ID for foot wound and pna Patient to wear CPAP nightly, she has been recently compliant Fluid restriction, I/O, daily weight Diuresis as able Outpatient evaluation for possible gastric bypass surgery Consult PT and OT, case management for possible rehab placement Outpatient recommendation for pulmonary rehab GI and DVT prophylaxis: Pepcid and Heparin IS and pulmonary hygiene Patient advised to simplify her home inhaler/nebulizer regimen. She should only be on Pulmicort BID and Duonebs QID with Albuterol HFA PRN.
--- NOTE | 2016-11-02 16:03 | DS ---
DATE OF ADMISSION: 10/29/2016 DATE OF DISCHARGE: 11/02/2016 CONSULTATION: Pulmonary consultation. Infectious disease consultation. DISCHARGE DIAGNOSES: 1. Community acquired pneumonia right middle lobe. 2. Acute exacerbation of chronic obstructive pulmonary disease secondary to pneumonia. 3. Chronic hypercapnic respiratory failure. 4. Obesity hypoventilation syndrome. 5. Morbid obesity with body mass index of 57.5. 6. Type 2 diabetes mellitus, poorly controlled insulin-dependent HbA1c of 9.2. 7. Hypertension. 8. Hyperlipidemia. 9. History of gout. 10. Chronic venostasis. 11. Diabetic foot ulcer not infected. 12. Hypomagnesium, replaced. HOSPITAL COURSE: Ms. Sam is a 51-year-old female with a known history of multiple medical problems and comorbid conditions as discussed above, admitted to hospital with complaints of difficulty breathing. Patient had a chest x-ray showed right lower lobe pneumonia and was being treated with antibiotics in the form of Levaquin. Patient also had COPD exacerbation and was treated for IV steroids and breathing treatments and patient did improve clinically. Patient also has right lower extremity diabetic foot ulcer without any infection. The patient was seen by ID and recommend to add ceftriaxone. The patient was continued on antibiotics and did improve clinically. The patient will be continued on levofloxacin alone to complete the antibiotic course. Patient will be discharged on tapering dose of steroids as well. Otherwise, the patient is cleared by pulmonary and is stable for discharge now to extended care facility. DISCHARGE PHYSICAL EXAMINATION: A 51-year-old female sitting on the bed comfortably. Awake, alert, oriented, x3. Appears to be in no apparent distress. VITALS: Blood pressure is 141/85. Pulse is 79, respiratory rate 20, temperature afebrile, pulse ox 95% on 5 L nasal cannula. HEENT: Atraumatic, normocephalic. Neck is supple. No JVD. CVS: S1, S2 heard. No murmurs, no gallop. LUNGS: Bilateral decreased air entry. No wheezing. No crackles. Nonlabored breathing. ABDOMEN: Soft, obese. Bowel sounds are present. GREY ROLL MAN: Awake, alert, oriented, x3. No focal deficit. EXTREMITIES: Bilateral lower extremities, trace edema. Right lower extremity slightly red with no warmth or increased swelling. PSYCHIATRIC: Cooperative. Laboratory data reviewed. Discharge physical examination done. Discharge medications include: 1. Famotidine 20 mg p.o. daily. 2. Loratadine 10 mg p.o. daily p.r.n. 3. Ferrous sulfate 325 mg p.o. daily. 4. Nitroglycerin sublingual tablets q.5 minutes 0.4 mg prn for chest pain. 5. Metformin 1000 mg p.o. b.i.d. 6. Lisinopril 5 mg p.o. daily. 7. Gabapentin 300 mg p.o. b.i.d. 8. Simvastatin 5 mg p.o. at bedtime. 9. Uloric 80 mg p.o. daily. 10. Breo Ellipta 1 puff inhalation daily. 11. Tramadol 50 mg p.o. q.i.d. p.r.n. for pain. 12. Insulin Lispro, 10 units subcu a.c. t.i.d. 13. Potassium chloride 20 mEq p.o. b.i.d. 14. Lasix 80 mg p.o. b.i.d. 15. Insulin Lantus 120 units subcu daily. 16. Lyrica 100 mg p.o. b.i.d. 17. Metoprolol 12.5 mg p.o. daily. 18. Singulair 10 mg p.o. at bedtime. 19. Albuterol Inhaler 1 to 2 puffs q.6 hourly p.r.n. for short of breath. 20. Fioricet 1 to 2 capsules p.o. q.4 hours p.r.n. for pain, headache. 21. Lexapro 10 mg p.o. daily. 22. ( ) nasal spray 2 sprays both nostrils q.i.d. p.r.n. for dry nose. 23. DuoNeb 3 mL ingestion q.i.d. 24. Levofloxacin 500 mg p.o. daily for 10 days. 25. Prednisone tapering dose. Patient will be discharged to extended care facility in stable condition. Activity as tolerated. Heart healthy diet and diabetic diet. Follow-up with Dr. Dimas as an outpatient. Follow-up with Mary Campos in one week. Time taken more than 35 minutes including 18 minutes counseling the patient and coordinating care. TOSIN
--- NOTE | 2016-11-02 19:58 | PN ---
DATE OF SERVICE: 11/02/2016 REASON FOR FOLLOWUP: 1. Pneumonia. 2. Right foot wound. INTERVAL HISTORY: The patient is afebrile and overall clinically has improved. The cough is decreased. There is significant pain or dependent drainage. No chest pain or abdominal pain. Denies any pain in the right foot wound with no drainage. On examination, blood pressure is 141/85 with a pulse of 79, temperature of 95% on 5L nasal cannula. General description is a middle-aged female, up in the bed in no distress. RESPIRATORY SYSTEM: Unlabored breathing with decreased intensity of breath sounds. No wheeze. HEART: S1, S2. Regular rate and rhythm. ABDOMEN: Soft. No tenderness. The right foot medial border wound is currently dressed. No drainage. LABS: Blood pressure has been negative. Patient was unable to provide any sputum. DIAGNOSTIC IMPRESSION AND PLAN: 1. Patient with right middle lobe pneumonia, likely community-acquired. Patient showing overall clinical improvement. Patient insisting on going home. She can be switched over to Levaquin 500 daily for another 7 to 10 days to finish a course of therapy. 2. Patient with ulceration to the right foot. Continue bacitracin cream. MTDD
[2016-11-02] MEDS ORDERED: LEVOFLOXACIN 750 MG TAB PO SCH (21:00)
== END 2016-11-02 15:34 | DRG 190 ==
LOC: EC 18:59 → 4MS4W 20:54
PROVIDERS: ADMIT Hospitalist; ATTEND Hospitalist
DX: J44.0 Chronic obstructive pulmonary disease with (acute) lower respiratory infection (principal); J18.9 Pneumonia, unspecified organism; J96.11 Chronic respiratory failure with hypoxia; J96.12 Chronic respiratory failure with hypercapnia; E66.2 Morbid (severe) obesity with alveolar hypoventilation; I27.2 Other secondary pulmonary hypertension; I11.0 Hypertensive heart disease with heart failure; I50.9 Heart failure, unspecified; E11.40 Type 2 diabetes mellitus with diabetic neuropathy, unspecified; E11.621 Type 2 diabetes mellitus with foot ulcer; E11.65 Type 2 diabetes mellitus with hyperglycemia; J44.1 Chronic obstructive pulmonary disease with (acute) exacerbation; E03.9 Hypothyroidism, unspecified; E78.5 Hyperlipidemia, unspecified; E83.42 Hypomagnesemia; J45.50 Severe persistent asthma, uncomplicated; R91.1 Solitary pulmonary nodule; M19.90 Unspecified osteoarthritis, unspecified site; I87.8 Other specified disorders of veins; L97.519 Non-pressure chronic ulcer of other part of right foot with unspecified severity; M10.9 Gout, unspecified; S91.311A Laceration without foreign body, right foot, initial encounter; F40.240 Claustrophobia; I27.81 Cor pulmonale (chronic); Z68.43 Body mass index [BMI] 50.0-59.9, adult; Z79.4 Long term (current) use of insulin; Z79.899 Other long term (current) drug therapy; Z87.891 Personal history of nicotine dependence; Z99.81 Dependence on supplemental oxygen; Z91.19 Patient's noncompliance with other medical treatment and regimen
CPT/HCPCS: 36415; 71020; 80048; 80053; 82550; 82553; 83036; 83735; 83880; 84484; 85025; 85610; 85730; 87040; 93005; 94640; 94760; 96374; 99291

== ENCOUNTER 2016-11-16 20:31 | Inpatient (IN) | payer MEDICARE, OTHER ==
[2016-11-16] MEDS ORDERED: FUROSEMIDE 10 MG/ML 4 ML VIAL IV STA (21:22)
[2016-11-16] MEDS ORDERED: methylPREDNISolone SOD SUCCI 125 MG/2 ML VIAL IV STA (21:22)
[2016-11-16] MEDS ORDERED: SODIUM CHLORIDE 0.9% 1,000 ML IV STA (21:22)
[2016-11-16] MEDS ORDERED: ALBUTEROL NEBULIZED 2.5 MG/3 ML INHALATION STA (21:22)
[2016-11-16] MEDS ORDERED: IPRATROPIUM-ALBUTEROL 3 ML NEB INHALATION STA (21:22)
[2016-11-16 22:11] LABS: ABG Base Excess 7.8 mmol/L; ABG HCO3 32 mmol/L (21-25); ABG PCO2 34 mmHg (35-45); ABG PH 7.42 (7.35-7.45); ABG PO2 90 mmHg (83-108); ABG TCO2 34 mmol/L (19-24)
[2016-11-16 22:17] LABS: ALT 42 U/L (9-52); AST 13 U/L (14-36); Alkaline Phosphatase 65 U/L (38-126); Anion Gap 10 mmol/L; Blood Urea Nitrogen 18 mg/dL (7-17); Calcium 9.1 mg/dL (8.4-10.2); Carbon Dioxide 35 mmol/L (22-30); Chloride 95 mmol/L (98-107); Glucose 265 mg/dL (74-99); Non-African American GFR(MDRD) >60 (>60 ml/min/1.73 sqM); Potassium 3.7 mmol/L (3.5-5.1); Sodium 140 mmol/L (137-145); Total Bilirubin 0.5 mg/dL (0.2-1.3)
[2016-11-16 22:25] LABS: INR 0.9 (<1.1); Partial Thromboplastin Time 24.5 sec (22.0-30.0); Prothrombin Time 9.6 sec (9.0-12.0)
[2016-11-16 22:26] LABS: Basophils % (A) 0 %; CH 29.5; CHCM 32.7; Eosinophils % (A) 1 %; HCT 34.2 % (34.0-46.0); HDW 3.15; HGB 11.4 gm/dL (11.4-16.0); Luc # (Auto) 0.27; Luc % (Auto) 3; Lymphocytes # (A) 0.8 k/uL (1.0-4.8); Lymphocytes % (A) 9 %; MCH 30.2 pg (25.0-35.0); MCHC 33.2 g/dL (31.0-37.0); MCV 90.8 fL (80.0-100.0); Mean Platelet Volume 7.5; Monocytes # (A) 0.6 k/uL (0-1.0); Monocytes % (A) 7 %; Neutrophils # (A) 6.7 k/uL (1.3-7.7); Neutrophils % (A) 80 %; RBC 3.77 m/uL (3.80-5.40); RDW 13.6 % (11.5-15.5); WBC 8.3 k/uL (3.8-10.6); WBC (Perox) 8.28
[2016-11-16 22:27] LABS: Creatine Kinase 25 U/L (30-135)
[2016-11-16 22:40] LABS: Creatine Kinase MB 0.4 ng/mL (0.0-2.4); Troponin I <0.012 ng/mL (0.000-0.034)
[2016-11-16] MEDS ORDERED: RX INFO: IV CONTRAST WAS GIVEN 1 EACH MISC MISCELLANE PRN (22:52)
--- NOTE | 2016-11-16 22:53 | XR ---
EXAMINATION TYPE: XR chest 2V DATE OF EXAM: 11/16/2016 10:42 PM COMPARISON: 10/29/2016 HISTORY: Difficulty breathing TECHNIQUE: Frontal and lateral views of the chest are obtained. FINDINGS: There is some patchy consolidation in the periphery of the right midlung. There is mild li near density in periphery of left midlung. There is no heart failure. There are no hilar masses. Ther e is probably some infiltrate in the medial posterior right lower lobe. There are chest leads. IMPRESSION: There are new right upper lobe pulmonary infiltrates compared to last exam. There is ying e chronic infiltrate at the right lung base with some improvement since last exam. Patchy atelectasis in the left lower lobe. No heart failure.
--- NOTE | 2016-11-16 23:00 | ED ---
SOB HPI - General Chief Complaint: Shortness of Breath Stated Complaint: SOB Time Seen by Provider: 11/16/16 21:17 Source: patient Mode of arrival: wheelchair Limitations: no limitations - History of Present Illness Initial Comments: She has ongoing shortness of breath and she been in and out of hospitals for that, shortness of breath got worse in last 24 hours she been coughing she been bringing up some phlegm she had a mild fever recently she was discharged from the hospital and she was a rehab facility to get his strength back draining about the mild chest pain and pain does get worse with a deep breaths and numb she been running a mild fever as well complaining about swelling around the legs is worse - Related Data Home Medications Medication Instructions Recorded Confirmed Famotidine [Pepcid] 20 mg PO DAILY 08/19/14 11/16/16 Loratadine 10 mg PO DAILY PRN 08/19/14 11/16/16 Ferrous Sulfate [Iron (65 MG 325 mg PO DAILY 08/20/14 11/16/16 Elemental)] Nitroglycerin Sl Tabs [Nitrostat] 0.4 mg SUBLINGUAL Q5M PRN 08/20/14 11/16/16 metFORMIN HCL 1,000 mg PO BID 08/20/14 11/16/16 Lisinopril [Zestril] 5 mg PO DAILY 03/13/15 11/16/16 Gabapentin [Neurontin] 300 mg PO BID 03/15/16 11/16/16 Simvastatin [Zocor] 40 mg PO HS 03/15/16 11/16/16 Febuxostat [Uloric] 80 mg PO DAILY 05/04/16 11/16/16 Insulin Glargine [Lantus] 120 unit SQ DAILY@0900 06/08/16 11/16/16 Pregabalin [Lyrica] 100 mg PO BID 06/08/16 11/16/16 Metoprolol Tartrate [Lopressor] 12.5 mg PO DAILY 07/18/16 11/16/16 Montelukast [Singulair] 10 mg PO HS 07/18/16 11/16/16 Albuterol Inhaler [Ventolin Hfa 1 - 2 puff INHALATION RT-Q6H PRN 08/24/16 Inhaler] Ipratropium-Albuterol Nebulize 3 ml INHALATION RT-QID 10/29/16 11/16/16 [Duoneb 0.5 mg-3 mg/3 ml Soln] Fluticasone/Vilanterol [Breo 1 puff INHALATION RT-DAILY 11/16/16 11/16/16 Ellipta 100-25 Mcg Inhaler] Furosemide [Lasix] 80 mg PO BID 11/16/16 11/16/16 INSULIN LISPRO (humaLOG) [humaLOG 10 unit SQ AC-TID 11/16/16 11/16/16 (formulary)] Previous Rx's Medication Instructions Recorded Potassium Chloride ER [K-Dur 20] 20 meq PO BID tab.er.prt 05/25/16 Escitalopram [Lexapro] 10 mg PO DAILY #30 tab 10/13/16 Sodium Chloride 0.65% Nasal [Deep 2 spray NASAL QID PRN #0 spray 10/13/16 Sea (Saline)] Budesonide [Pulmicort] 0.5 mg INHALATION RT-BID #1 nebu 11/23/16 Buta/APAP/Caf/Cod 32-626-63-30 1 cap PO Q4H PRN #20 cap 11/23/16 [Fioricet w/Cod 51-477-51-30MG] Doxycycline Hyclate [Vibramycin] 100 mg PO BID #14 cap 11/23/16 Gabapentin [Neurontin] 300 mg PO BID #30 cap 11/23/16 Pregabalin [Lyrica] 100 mg PO BID #30 cap 11/23/16 amLODIPine [Norvasc] 2.5 mg PO DAILY #30 tablet 11/23/16 predniSONE 60 mg PO DAILY #7 tab 11/23/16 traMADol HCl [Ultram] 50 mg PO QID PRN #60 tab 11/23/16 Allergies Allergy/AdvReac Type Severity Reaction Status Date / Time No Known Allergies Allergy Verified 11/16/16 21:48 Review of Systems ROS Statement: Those systems with pertinent positive or pertinent negative responses have been documented in the HPI. ROS Other: All systems not noted in ROS Statement are negative. Past Medical History Past Medical History: Asthma, Chest Pain / Angina, Heart Failure, COPD, Diabetes Mellitus, Hyperlipidemia, Hypertension, Neurologic Disorder, Osteoarthritis (OA), Pneumonia, Respiratory Disorder, Sleep Apnea/CPAP/BIPAP, Syncope, Thyroid Disorder Additional Past Medical History / Comment(s): GOUT, NEUROPATHY-FEET, sleep apnea but won't wear cpap, has home 02 4 liters n/c atc, past resp failure, hypothyroid,,lt lower lobe nodule-radiation therapy(,unsuccesful bx) History of Any Multi-Drug Resistant Organisms: None Reported Past Surgical History: Section Additional Past Surgical History / Comment(s): LT CARPAL TUNNEL, 3 unsuccessful attempts at lt lobe bx Past Anesthesia/Blood Transfusion Reactions: No Reported Reaction Additional Past Anesthesia/Blood Transfusion Reaction / Comment(s): CLAUSTERPHOBIA Past Psychological History: No Psychological Hx Reported Additional Psychological History / Comment(s): PT LIVES AT HOME WITH A FRIEND, CURRENTLY RECIEVING HOME CARE SERVICES THRU [facility] Smoking Status: Former smoker Past Alcohol Use History: None Reported Additional Past Alcohol Use History / Comment(s): STARTED SMOKING 1975-STOPPED 2007 Past Drug Use History: None Reported - Past Family History Father Family Medical History: COPD, Diabetes Mellitus Mother History Unknown: Yes Family Medical History: No Reported History Additional Family Medical History / Comment(s): AT AGE 43 FROM SUICIDE General Exam - General Exam Comments Initial Comments: General: The patient is awake and alert, in moderate distress Skin: Skin is warm and dry and no rashes or lesions are noted. Eye: Pupils are equal, round and reactive to light, extra-ocular movements are intact; there is normal conjunctiva bilaterally. Ears, nose, mouth and throat: There are moist mucous membranes and no oral lesions. Neck: The neck is supple, there is no tenderness signs of meningeal irritation or meningitis Cardiovascular: There is a regular rate and rhythm. No murmur, rub or gallop is appreciated. Respiratory: To auscultation bilateral, poor air exchange at the bases Gastrointestinal: Soft, non-distended, non-tender abdomen without masses or organomegaly noted. There is no rebound or guarding present. Bowel sounds are unremarkable. Back: There is no tenderness to palpation in the midline. There is no obvious deformity. Musculoskeletal: Normal ROM, noticed some +3 edema bilaterally noticed some mild cellulitis as well. Neurological: CN II-XII intact, Cranial nerves III through XII are intact. There are no obvious motor or sensory deficits. Coordination appears grossly intact. Speech is normal. Psychiatric: Cooperative, appropriate mood & affect, normal judgment. Limitations: no limitations Course Vital Signs 11/16/16 11/16/16 11/16/16 20:48 22:03 22:25 Temperature 99.1 F Pulse Rate 109 H 114 H 119 H Respiratory 20 Rate Blood Pressure 96/51 O2 Sat by Pulse 88 L Oximetry 11/17/16 11/17/16 00:09 00:52 Temperature Pulse Rate 111 H 112 H Respiratory 20 20 Rate Blood Pressure 135/69 113/56 O2 Sat by Pulse 93 L 93 L Oximetry EKG was reviewed, is sinus tachycardia ventricular rate is 106 OK interval is 172 QRS duration is 74 QT/QTc is 324/4:30 noticed some mom and low voltage devious this EKG reveals some artifacts do not see any clear ST elevation or ST depression in this EKG Medical Decision Making - Lab Data Result diagrams: 11/22/16 08:27 11/22/16 08:27 Lab Results 11/16/16 11/16/16 11/16/16 Range/Units 21:58 21:58 21:58 WBC 8.3 (3.8-10.6) k/uL RBC 3.77 L (3.80-5.40) m/uL Hgb 11.4 (11.4-16.0) gm/dL Hct 34.2 (34.0-46.0) % MCV 90.8 (80.0-100.0) fL MCH 30.2 (25.0-35.0) pg MCHC 33.2 (31.0-37.0) g/dL RDW 13.6 (11.5-15.5) % Plt Count 199 (150-450) k/uL Neutrophils % 80 % Lymphocytes % 9 % Monocytes % 7 % Eosinophils % 1 % Basophils % 0 % Neutrophils # 6.7 (1.3-7.7) k/uL Lymphocytes # 0.8 L (1.0-4.8) k/uL Monocytes # 0.6 (0-1.0) k/uL Eosinophils # 0.0 (0-0.7) k/uL Basophils # 0.0 (0-0.2) k/uL PT (9.0-12.0) sec INR (<1.1) APTT (22.0-30.0) sec D-Dimer (<0.60) mg/L FEU Sample Site ABG pH (7.35-7.45) ABG pCO2 (35-45) mmHg ABG pO2 (83-108) mmHg ABG HCO3 (21-25) mmol/L ABG Total CO2 (19-24) mmol/L ABG O2 Saturation (94-97) % ABG Base Excess mmol/L FiO2 % Sodium 140 (137-145) mmol/L Potassium 3.7 (3.5-5.1) mmol/L Chloride 95 L (98-107) mmol/L Carbon Dioxide 35 H (22-30) mmol/L Anion Gap 10 mmol/L BUN 18 H (7-17) mg/dL Creatinine 0.82 (0.52-1.04) mg/dL Est GFR (MDRD) Af Amer >60 (>60 ml/min/1.73 sqM) Est GFR (MDRD) Non-Af >60 (>60 ml/min/1.73 sqM) Glucose 265 H (74-99) mg/dL Estimated Ave Glu mg/dL mg/dL Hemoglobin A1c (4.2-6.1) % Calcium 9.1 (8.4-10.2) mg/dL Total Bilirubin 0.5 (0.2-1.3) mg/dL AST 13 L (14-36) U/L ALT 42 (9-52) U/L Alkaline Phosphatase 65 (38-126) U/L Total Creatine Kinase 25 L (30-135) U/L CK-MB (CK-2) 0.4 (0.0-2.4) ng/mL CK-MB (CK-2) Rel Index 1.6 Troponin I <0.012 (0.000-0.034) ng/mL NT-Pro-B Natriuret Pep pg/mL Total Protein 6.0 L (6.3-8.2) g/dL Albumin 3.3 L (3.5-5.0) g/dL 11/16/16 11/16/16 11/16/16 Range/Units 21:58 21:58 21:58 WBC (3.8-10.6) k/uL RBC (3.80-5.40) m/uL Hgb (11.4-16.0) gm/dL Hct (34.0-46.0) % MCV (80.0-100.0) fL MCH (25.0-35.0) pg MCHC (31.0-37.0) g/dL RDW (11.5-15.5) % Plt Count (150-450) k/uL Neutrophils % % Lymphocytes % % Monocytes % % Eosinophils % % Basophils % % Neutrophils # (1.3-7.7) k/uL Lymphocytes # (1.0-4.8) k/uL Monocytes # (0-1.0) k/uL Eosinophils # (0-0.7) k/uL Basophils # (0-0.2) k/uL PT 9.6 (9.0-12.0) sec INR 0.9 (<1.1) APTT 24.5 (22.0-30.0) sec D-Dimer 0.70 H (<0.60) mg/L FEU Sample Site ABG pH (7.35-7.45) ABG pCO2 (35-45) mmHg ABG pO2 (83-108) mmHg ABG HCO3 (21-25) mmol/L ABG Total CO2 (19-24) mmol/L ABG O2 Saturation (94-97) % ABG Base Excess mmol/L FiO2 % Sodium (137-145) mmol/L Potassium (3.5-5.1) mmol/L Chloride (98-107) mmol/L Carbon Dioxide (22-30) mmol/L Anion Gap mmol/L BUN (7-17) mg/dL Creatinine (0.52-1.04) mg/dL Est GFR (MDRD) Af Amer (>60 ml/min/1.73 sqM) Est GFR (MDRD) Non-Af (>60 ml/min/1.73 sqM) Glucose (74-99) mg/dL Estimated Ave Glu mg/dL 223 mg/dL Hemoglobin A1c 9.4 H (4.2-6.1) % Calcium (8.4-10.2) mg/dL Total Bilirubin (0.2-1.3) mg/dL AST (14-36) U/L ALT (9-52) U/L Alkaline Phosphatase (38-126) U/L Total Creatine Kinase (30-135) U/L CK-MB (CK-2) (0.0-2.4) ng/mL CK-MB (CK-2) Rel Index Troponin I (0.000-0.034) ng/mL NT-Pro-B Natriuret Pep 85 pg/mL Total Protein (6.3-8.2) g/dL Albumin (3.5-5.0) g/dL 11/16/16 Range/Units 22:04 WBC (3.8-10.6) k/uL RBC (3.80-5.40) m/uL Hgb (11.4-16.0) gm/dL Hct (34.0-46.0) % MCV (80.0-100.0) fL MCH (25.0-35.0) pg MCHC (31.0-37.0) g/dL RDW (11.5-15.5) % Plt Count (150-450) k/uL Neutrophils % % Lymphocytes % % Monocytes % % Eosinophils % % Basophils % % Neutrophils # (1.3-7.7) k/uL Lymphocytes # (1.0-4.8) k/uL Monocytes # (0-1.0) k/uL Eosinophils # (0-0.7) k/uL Basophils # (0-0.2) k/uL PT (9.0-12.0) sec INR (<1.1) APTT (22.0-30.0) sec D-Dimer (<0.60) mg/L FEU Sample Site [facility] ABG pH 7.42 (7.35-7.45) ABG pCO2 34 L (35-45) mmHg ABG pO2 90 (83-108) mmHg ABG HCO3 32 H (21-25) mmol/L ABG Total CO2 34 H (19-24) mmol/L ABG O2 Saturation 97.0 (94-97) % ABG Base Excess 7.8 mmol/L FiO2 36 % Sodium (137-145) mmol/L Potassium (3.5-5.1) mmol/L Chloride (98-107) mmol/L Carbon Dioxide (22-30) mmol/L Anion Gap mmol/L BUN (7-17) mg/dL Creatinine (0.52-1.04) mg/dL Est GFR (MDRD) Af Amer (>60 ml/min/1.73 sqM) Est GFR (MDRD) Non-Af (>60 ml/min/1.73 sqM) Glucose (74-99) mg/dL Estimated Ave Glu mg/dL mg/dL Hemoglobin A1c (4.2-6.1) % Calcium (8.4-10.2) mg/dL Total Bilirubin (0.2-1.3) mg/dL AST (14-36) U/L ALT (9-52) U/L Alkaline Phosphatase (38-126) U/L Total Creatine Kinase (30-135) U/L CK-MB (CK-2) (0.0-2.4) ng/mL CK-MB (CK-2) Rel Index Troponin I (0.000-0.034) ng/mL NT-Pro-B Natriuret Pep pg/mL Total Protein (6.3-8.2) g/dL Albumin (3.5-5.0) g/dL Critical Care Time Total Critical Care Time: 45 Critical Care Time: She was tachycardic into On arrival she was giving gallop neck treatments with the IV Solu-Medrol ABGs were done and reviewed chest x-ray were done. Elevated to d-dimer would follow-up with that with the CT angiogram rule out PE in the meantime patient has some antibiotics as well patient has a +3 edema bilaterally with a cellulitis of the legs Disposition Clinical Impression: Pneumonia Disposition: ADMITTED IP TO THIS HOSP
[2016-11-16] MEDS ORDERED: LEVOFLOXACIN 500 MG TAB PO STA (23:30)
--- NOTE | 2016-11-16 23:53 | CT ---
EXAMINATION TYPE: CT angio chest DATE OF EXAM: 11/16/2016 11:36 PM COMPARISON: 06/08/2016 HISTORY: SOB, elevated d-dimer, history of left lung nodule, history of asthma,COPD,diabetes, and hea rt disease, R/O PE CT DLP: 1366.90 mGycm Automated exposure control for dose reduction was used. CONTRAST: CTA scan of the thorax is performed with IV Contrast, patient injected with 65ml mL of Omnipaque 350, pulmonary embolism protocol. There are 3-D post processed images.. FINDINGS: There is a patchy 8 cm area of pneumonic consolidation in the periphery of the right upper lobe. Ther e is no evidence of a discrete mass. There is a patchy lingula infiltrate and atelectasis. There is m ild right middle lobe subsegmental atelectasis. There is no pleural effusion. There is suboptimal contrast opacification of the pulmonary arteries. I see no filling defects. There are no hilar masses. There is no mediastinal adenopathy. There is no evidence of aortic aneurysm or dissection. IMPRESSION: NO EVIDENCE OF PULMONARY EMBOLISM. THERE IS NEW PATCHY RIGHT UPPER LOBE PNEUMONIC CONSOLIDATION COMPARED TO CHEST CT SCAN OF 10/06/2016 A ND CONSISTENT WITH PNEUMONIA. PATCHY MINIMAL INFILTRATE OR ATELECTASIS IN THE RIGHT MIDDLE LOBE AND L INGULA LEFT UPPER LOBE. THERE IS SOME CLEARING OF RIGHT LOWER LOBE ATELECTASIS SINCE LAST EXAM. SOME OPTIMAL CONTRAST EXAM.
[2016-11-17] MEDS ORDERED: ALBUTEROL INHALER 60 PUFF/8 GM INHALER INHALATION PRN (00:29)
[2016-11-17] MEDS ORDERED: LORATADINE 10 MG TAB PO PRN (00:29)
[2016-11-17] MEDS ORDERED: SODIUM CHLORIDE 0.65% NASAL SPRAY 44 ML BTL NASAL PRN (00:29)
[2016-11-17] MEDS ORDERED: NITROGLYCERIN SL TABS 0.4 MG TAB SUBLINGUAL PRN (00:29)
[2016-11-17] MEDS ORDERED: IPRATROPIUM-ALBUTEROL 3 ML NEB INHALATION PRN (01:37)
[2016-11-17 02:23] LABS: Glucose,Whole Blood 436 mg/dL (75-99)
[2016-11-17] MEDS: INSULIN LISPRO (humaLOG) 300 UNIT/3 ML VIAL SQ SCH ×4 (03:45→17:04)
[2016-11-17] MEDS: traMADol 50 MG TAB PO PRN ×2 (03:45→12:15)
[2016-11-17] MEDS: methylPREDNISolone SOD SUCCI 125 MG/2 ML VIAL IV SCH ×2 (06:39→13:03)
[2016-11-17 07:17] LABS: Glucose,Whole Blood 420 mg/dL (75-99)
[2016-11-17] MEDS: IPRATROPIUM-ALBUTEROL 3 ML NEB INHALATION SCH ×4 (07:33→19:10)
[2016-11-17] MEDS: metFORMIN 500 MG TAB PO SCH (07:39)
[2016-11-17] MEDS: LISINOPRIL 5 MG TAB PO SCH (07:42)
[2016-11-17] MEDS: FAMOTIDINE 20 MG TAB PO SCH (07:42)
[2016-11-17] MEDS: ESCITALOPRAM 10 MG TAB PO SCH (07:42)
[2016-11-17] MEDS: FUROSEMIDE 80 MG TAB PO SCH ×2 (07:42→22:04)
[2016-11-17] MEDS: GABAPENTIN 300 MG CAP PO SCH ×2 (07:42→22:04)
[2016-11-17] MEDS: ALLOPURINOL 100 MG TAB PO SCH ×2 (07:42→22:03)
[2016-11-17] MEDS: POTASSIUM CHLORIDE ER 20 MEQ TAB.ER PO SCH ×2 (07:43→22:05)
[2016-11-17] MEDS: FERROUS SULFATE 325 MG TAB PO SCH (07:43)
[2016-11-17] MEDS: METOPROLOL TARTRATE 12.5 MG TAB PO SCH (07:43)
[2016-11-17] MEDS ORDERED: SYMBICORT 80-4.5 MCG INHALER INHALATION SCH (08:00)
[2016-11-17] MEDS ORDERED: INSULIN GLARGINE 100 UNIT/ML 10 ML VIAL SQ SCH (09:00)
[2016-11-17] MEDS: PREGABALIN 100 MG CAP PO SCH ×2 (09:47→22:05)
[2016-11-17 11:49] LABS: Glucose,Whole Blood 510 mg/dL (75-99)
[2016-11-17 11:49] LABS: Glucose,Whole Blood 538 mg/dL (75-99)
[2016-11-17] MEDS ORDERED: INSULIN REGULAR BOLUS (FROM DRIP BAG) IV ONE (12:07)
[2016-11-17] MEDS ORDERED: INSULIN LISPRO (humaLOG) 300 UNIT/3 ML VIAL SQ SCH (12:30)
[2016-11-17 12:59] LABS: Glucose,Whole Blood 555 mg/dL (75-99)
[2016-11-17] MEDS: INSULIN REGULAR 100 UNIT in SODIUM CHLORIDE 0.9% 100 ML IV SCH ×3 (13:00→22:42)
[2016-11-17 13:04] LABS: Hemoglobin A1C 9.4 % (4.2-6.1)
--- NOTE | 2016-11-17 13:18 | P.CNPUL ---
History of Present Illness Consult date: 11/17/16 Reason for consult: dyspnea, asthma, obstructive sleep apnea Chief complaint: weakness and shortness of breath History of present illness: This is a 51-year-old female who presented emergency department complaining of elevated blood sugars. The patient has been in and out of the hospital quite frequently recently. She states that she was at a rehab facility and her blood sugars were over 500. She called her primary care physician who told her to come to the emergency department. The patient states that she feels like the rehab facility was not giving her breathing treatments for her medications correctly. She also states that she felt like she wasn't doing enough physical therapy there. She does state that she woke up about 24 hours ago with cough and shortness of breath. She says prior to that she was doing very well with her breathing. She is also complaining of worsening lower extremity edema and blisters which have now ruptured. She denies fevers and chills. Review of Systems All systems: negative Past Medical History Past Medical History: Asthma, Chest Pain / Angina, Heart Failure, COPD, Diabetes Mellitus, Hyperlipidemia, Hypertension, Neurologic Disorder, Osteoarthritis (OA), Pneumonia, Respiratory Disorder, Sleep Apnea/CPAP/BIPAP, Syncope, Thyroid Disorder Additional Past Medical History / Comment(s): GOUT, NEUROPATHY-FEET, sleep apnea but won't wear cpap, has home 02 4 liters n/c atc, past resp failure, hypothyroid,,lt lower lobe nodule-radiation therapy(,unsuccesful bx) History of Any Multi-Drug Resistant Organisms: None Reported Past Surgical History: Section Additional Past Surgical History / Comment(s): LT CARPAL TUNNEL, 3 unsuccessful attempts at lt lobe bx Past Anesthesia/Blood Transfusion Reactions: No Reported Reaction Additional Past Anesthesia/Blood Transfusion Reaction / Comment(s): CLAUSTERPHOBIA Past Psychological History: No Psychological Hx Reported Additional Psychological History / Comment(s): PT LIVES AT HOME WITH A FRIEND, CURRENTLY RECIEVING HOME CARE SERVICES THRU [facility] Smoking Status: Former smoker Past Alcohol Use History: None Reported Additional Past Alcohol Use History / Comment(s): STARTED SMOKING 1975-STOPPED 2007 Past Drug Use History: None Reported - Past Family History Father Family Medical History: COPD, Diabetes Mellitus Mother History Unknown: Yes Family Medical History: No Reported History Additional Family Medical History / Comment(s): AT AGE 43 FROM SUICIDE Medications and Allergies Home Medications Medication Instructions Recorded Confirmed Type Famotidine [Pepcid] 20 mg PO DAILY 08/19/14 11/16/16 History Loratadine 10 mg PO DAILY PRN 08/19/14 11/16/16 History Ferrous Sulfate [Iron (65 MG 325 mg PO DAILY 08/20/14 11/16/16 History Elemental)] Nitroglycerin Sl Tabs [Nitrostat] 0.4 mg SUBLINGUAL Q5M PRN 08/20/14 11/16/16 History metFORMIN HCL 1,000 mg PO BID 08/20/14 11/16/16 History Lisinopril [Zestril] 5 mg PO DAILY 03/13/15 11/16/16 History Gabapentin [Neurontin] 300 mg PO BID 03/15/16 11/16/16 History Simvastatin [Zocor] 40 mg PO HS 03/15/16 11/16/16 History Febuxostat [Uloric] 80 mg PO DAILY 05/04/16 11/16/16 History Insulin Glargine [Lantus] 120 unit SQ DAILY@0900 06/08/16 11/16/16 History Pregabalin [Lyrica] 100 mg PO BID 06/08/16 11/16/16 History Metoprolol Tartrate [Lopressor] 12.5 mg PO DAILY 07/18/16 11/16/16 History Montelukast [Singulair] 10 mg PO HS 07/18/16 11/16/16 History Albuterol Inhaler [Ventolin Hfa 1 - 2 puff INHALATION RT-Q6H PRN 08/24/16 History Inhaler] Ipratropium-Albuterol Nebulize 3 ml INHALATION RT-QID 10/29/16 11/16/16 History [Duoneb 0.5 mg-3 mg/3 ml Soln] Amoxic-Pot Clav 500-125 mg 1 tab PO BID 11/16/16 11/16/16 History [Augmentin 500-125 mg] Buta/APAP/Caf/Cod 79-744-68-30 1 cap PO Q4H PRN 11/16/16 11/16/16 History [Fioricet w/Cod 90-696-57-30MG] Fluticasone/Vilanterol [Breo 1 puff INHALATION RT-DAILY 11/16/16 11/16/16 History Ellipta 100-25 Mcg Inhaler] Furosemide [Lasix] 80 mg PO BID 11/16/16 11/16/16 History INSULIN LISPRO (humaLOG) [humaLOG 10 unit SQ AC-TID 11/16/16 11/16/16 History (formulary)] Allergies Allergy/AdvReac Type Severity Reaction Status Date / Time No Known Allergies Allergy Verified 11/16/16 21:48 Physical Exam Osteopathic Statement: *. No significant issues noted on an osteopathic structural exam other than those noted in the History and Physical/Consult. Vitals: Vital Signs Temp Pulse Pulse Resp BP BP Pulse Ox 11/17/16 11:10 92 11/17/16 11:00 90 11/17/16 08:00 110 H 18 11/17/16 07:43 104 H 11/17/16 07:35 104 H 11/17/16 07:00 97.0 F L 110 H 18 117/62 92 L 11/17/16 02:38 97.2 F L 106 H 24 131/76 89 L 11/17/16 00:52 112 H 20 113/56 93 L Intake and Output 11/16/16 11/17/16 11/17/16 22:59 06:59 14:59 Intake Total 300 Balance 300 Intake: Amount of Fluid Infused ( 100 ml) Oral 200 Other: # Voids 1 Weight 172.365 kg Patient Weight 11/18/16 06:59 Weight 172.365 kg Gen.: Patient is alert and oriented 3, no acute distress, morbidly obese neck sign cardiovascular: Regular rate and rhythm, S1/S2 Lungs: Diminished breath sounds bilaterally Abdomen: Soft nontender nondistended positive bowel sounds Extremities: 3+ pitting edema with open wounds on her right lower extremity Results - Laboratory Findings CBC and BMP: 11/16/16 21:58 11/16/16 21:58 ABG ABG pH 7.42 (7.35-7.45) 11/16/16 22:04 ABG pCO2 34 mmHg (35-45) L 11/16/16 22:04 ABG pO2 90 mmHg (83-108) 11/16/16 22:04 ABG O2 Saturation 97.0 % (94-97) 11/16/16 22:04 PT/INR, D-dimer PT 9.6 sec (9.0-12.0) 11/16/16 21:58 INR 0.9 (<1.1) 11/16/16 21:58 D-Dimer 0.70 mg/L FEU (<0.60) H 11/16/16 21:58 Abnormal lab findings: Abnormal Labs 11/17/16 11/17/16 11/17/16 02:19 07:16 11:46 POC Glucose (mg/dL) 436 H 420 H 510 H 11/17/16 11/17/16 11:48 12:58 POC Glucose (mg/dL) 538 H 555 H - Diagnostic Findings Chest x-ray: report reviewed, image reviewed CT scan - chest: report reviewed, image reviewed Assessment and Plan Plan: Chronic hypoxic and hypercapnic respiratory failure Right upper lobe pneumonia Acute exacerbation of COPD and asthma, severe persistent Pulmonary hypertension and cor pulmonale Morbid obesity LINDA/OHS, now on CPAP Left lung nodule treated with radiation, PET positive Diabetes mellitus type 2 uncontrolled with diabetic neuropathy Dyslipidemia Hypertension Hypothyroidism Right lower extremity diabetic wounds O2 to maintain saturation greater than equal to 88% Pulmicmichael and iztel Powell Consult ID for diabetic wounds and pneumonia Patient encouraged to wear CPAP nightly Fluid restrictions, I/O, daily weight Diuresis as able PT and OT GI and DVT prophylaxis Incentive spirometry and pulmonary hygiene Thank you for this consultation. We will continue to follow along.
[2016-11-17 13:30] LABS: Glucose,Whole Blood 523 mg/dL (75-99)
[2016-11-17 14:00] LABS: Glucose,Whole Blood 492 mg/dL (75-99)
[2016-11-17 14:28] LABS: Glucose,Whole Blood 451 mg/dL (75-99)
[2016-11-17 15:00] LABS: Glucose,Whole Blood 450 mg/dL (75-99)
[2016-11-17 15:43] LABS: Glucose,Whole Blood 405 mg/dL (75-99)
[2016-11-17 16:01] LABS: Glucose,Whole Blood 394 mg/dL (75-99)
[2016-11-17 16:29] LABS: Glucose,Whole Blood 337 mg/dL (75-99)
[2016-11-17 17:01] LABS: Glucose,Whole Blood 326 mg/dL (75-99)
[2016-11-17] MEDS: methylPREDNISolone SOD SUCCI 40 MG/ML 1 ML VIAL IV SCH (17:05)
[2016-11-17 17:40] LABS: Glucose,Whole Blood 307 mg/dL (75-99)
[2016-11-17 18:01] LABS: Glucose,Whole Blood 281 mg/dL (75-99)
[2016-11-17 18:32] LABS: Glucose,Whole Blood 325 mg/dL (75-99)
[2016-11-17 19:04] LABS: Glucose,Whole Blood 313 mg/dL (75-99)
[2016-11-17 19:33] LABS: Glucose,Whole Blood 384 mg/dL (75-99)
[2016-11-17 20:10] LABS: Glucose,Whole Blood 294 mg/dL (75-99)
[2016-11-17 21:07] LABS: Glucose,Whole Blood 298 mg/dL (75-99)
[2016-11-17 21:45] LABS: Glucose,Whole Blood 300 mg/dL (75-99)
[2016-11-17] MEDS: LEVOFLOXACIN 500 MG TAB PO SCH (22:04)
[2016-11-17] MEDS: ATORVASTATIN 20 MG TAB PO SCH (22:04)
[2016-11-17] MEDS: MONTELUKAST 10 MG TAB PO SCH (22:04)
[2016-11-17 22:19] LABS: Glucose,Whole Blood 319 mg/dL (75-99)
[2016-11-17 22:44] LABS: Glucose,Whole Blood 313 mg/dL (75-99)
--- NOTE | 2016-11-17 23:05 | HP ---
DATE OF ADMISSION: 11/17/2016 Patient is a 51-year-old came in with complaints of elevated blood sugar and patient having increased shortness of breath and patient has multiple other medical problems. Patient has a known history of sleep apnea, obesity, obesity hypoventilation syndrome, pulmonary hypertension. Patient comes in and patient is admitted. Patient has a possibility of pneumonia on the chest. Patient does have pneumonia in the right lower lobes with some air bronchogram. Patient was started on steroids and levofloxacin. The patient's sputum cultures are being obtained. The patient was subsequently admitted. Patient is on IV insulin, because of uncontrolled blood sugars, the patient is being initiated on her home dose of insulin to taper down her IV insulin. Patient is also complaining of worsening lower extremity edema and blisters. Patient has a right leg blister with a possibility of cellulitis for which infectious disease is evaluating the patient. REVIEW OF SYSTEMS: CONSTITUTIONAL: No fever, no malaise, no fatigue. HEENT: No recent visual problems or hearing problems. Denied any sore throat. CARDIOVASCULAR: No chest pain, orthopnea, PND, no palpitations, no syncope. PULMONARY: As described in HPI. GASTROINTESTINAL: No diarrhea, no nausea, no vomiting, no abdominal pain. Normoactive bowel sounds. NEUROLOGICAL: No headaches, no weakness, no numbness. HEMATOLOGICAL: Denies any bleeding or petechiae. GENITOURINARY: Denies any burning micturition, frequency, or urgency. MUSCULOSKELETAL/RHEUMATOLOGICAL: Denies any joint pain, swelling, or any muscle pain. ENDOCRINE: Denies any polyuria or polydipsia. DERMATOLOGICAL: As described in HPI. The rest of the 14 point review of systems is negative. Past medical history is significant for chronic obstructive pulmonary disease and diabetes mellitus, hyperlipidemia, hypertension, osteoarthritis, sleep apnea, morbid obesity, obesity hypoventilation syndrome, hypothyroidism, gout, neuropathy. PAST SURGICAL HISTORY: section, carpal tunnel surgery. SOCIAL HISTORY: Former smoker. Quit smoking in 2007. Denied any alcohol abuse or any drug abuse. FAMILY HISTORY: Father had chronic obstructive pulmonary disease and diabetes mellitus and mother at age 43 from suicide. Home medications: 1. Famotidine. 2. Loratadine. 3. Ferrous sulfate. 4. Nitroglycerin. 5. Metformin. 6. Lisinopril. 7. Gabapentin. 8. Simvastatin. 9. Uloric. 10. Lantus. 11. ( ). 12. Metoprolol. 13. Montelukast. 14. Albuterol. 15. Ipratropium. 16. Augmentin. 17. Fluticasone. 18. Lasix. 19. Insulin. ALLERGIES: No known drug allergies. PHYSICAL EXAMINATION: VITAL SIGNS: Temperature 97.0, pulse of 92, respiratory rate of 18, blood pressure is 113/56, saturating at 92% on 4 liters of O2 nasal cannula. GENERAL: Morbidly obese female. Alert and oriented x3. HEENT: Pupils are round and equally reacting to light. EOMI. No scleral icterus. No conjunctival pallor. Normocephalic, atraumatic. No pharyngeal erythema. No thyromegaly. CARDIOVASCULAR: S1 and S2 present. No murmurs, rubs, or gallops. PULMONARY: Chest is clear to auscultation, no wheezing or crackles. ABDOMEN: Soft, nontender, nondistended, normoactive bowel sounds. No palpable organomegaly. MUSCULOSKELETAL: No joint swelling or deformity. EXTREMITIES: Patient does have pedal edema with skin breakdown on the right leg with some possible cellulitis. Patient has bilateral lower limb redness, more so on the right side. NEUROLOGICAL: Gross neurological examination did not reveal any focal deficits. SKIN: No rashes. LABORATORY DATA: CBC and BMP are abnormal for elevated blood glucose. Chest x-ray, CT was reviewed, which did not show any pulmonary embolism. ASSESSMENT AND PLAN: 1. Chronic hypercapnic and chronic hypoxic respiratory failure with acute exacerbation. Patient has acute hypoxic respiratory failure, the patient will be treated for chronic obstructive pulmonary disease exacerbation, although her lungs do not appear bad. 2. Right upper lobe pneumonia. 3. Pulmonary hypertension with cor pulmonale, morbid obesity, obstructive sleep apnea on CPAP machine. Left lung nodule with radiation and PET scan positive. 4. Type 2 diabetes mellitus. 5. Hyperlipidemia. 6. Hypertension. 7. Hypothyroidism. 8. Right lower extremity diabetic wounds with possible cellulitis. PLAN: Continue with systemic steroids, inhalation treatments. Continue with Lisinopril. ID was consulted regarding antibiotics recommendations for right lower limb cellulitis. Regarding right upper lobe pneumonia, patient is on Levofloxacin. Continue CPAP. PT and OT. Patient is feeling better today.
[2016-11-17 23:06] LABS: Glucose,Whole Blood 319 mg/dL (75-99)
[2016-11-17 23:38] LABS: Glucose,Whole Blood 320 mg/dL (75-99)
[2016-11-18] MEDS: methylPREDNISolone SOD SUCCI 40 MG/ML 1 ML VIAL IV SCH ×2 (00:09→08:18)
[2016-11-18 00:18] LABS: Glucose,Whole Blood 333 mg/dL (75-99)
[2016-11-18 00:56] LABS: Glucose,Whole Blood 283 mg/dL (75-99)
[2016-11-18 01:00] LABS: Glucose,Whole Blood 280 mg/dL (75-99)
[2016-11-18 01:50] LABS: Glucose,Whole Blood 285 mg/dL (75-99)
[2016-11-18 02:22] LABS: Glucose,Whole Blood 298 mg/dL (75-99)
[2016-11-18 02:31] LABS: Glucose,Whole Blood 292 mg/dL (75-99)
[2016-11-18 03:22] LABS: Glucose,Whole Blood 284 mg/dL (75-99)
[2016-11-18 03:51] LABS: Glucose,Whole Blood 276 mg/dL (75-99)
[2016-11-18] MEDS: INSULIN REGULAR 100 UNIT in SODIUM CHLORIDE 0.9% 100 ML IV SCH ×3 (04:09→21:19)
[2016-11-18 04:20] LABS: Glucose,Whole Blood 257 mg/dL (75-99)
[2016-11-18 04:41] LABS: Glucose,Whole Blood 249 mg/dL (75-99)
--- NOTE | 2016-11-18 06:10 | CONS ---
DATE OF CONSULTATION: DATE OF SERVICE: 11/17/2016 REASON FOR CONSULTATION: 1. Pneumonia. 2. Bilateral lower extremity wound with question of cellulitis. HISTORY OF PRESENT ILLNESS: The patient is a 51-year-old morbidly obese female who has been in the hospital recently for underlying respiratory status. The patient was currently at rehab and noticed to have elevated blood sugar in addition to increasing shortness of breath. Her breathing has been getting worse for the last few days. Patient did have a cough bringing up minimal sputum. No hemoptysis. No chest pain. Denies any high grade fever. No abdominal pain. The patient also has more swelling in her legs and did have feet and superficial laceration and drainage of some clear fluid. No purulence. Patient subsequently has been evaluated by the ER physician The patient have CT angiogram that was negative for pulmonary embolism, however, did show some pneumonic consolidation right upper lobe. The patient had been started on antibiotic and admitted to the hospital. I was asked to see the patient for recommendation especially for her leg wound. REVIEW OF SYSTEMS: CONSTITUTIONAL: Positive for weakness. EYES: No complaint. ENT: No complaint. RESPIRATORY: As per HPI. CARDIOVASCULAR: As per HPI. GENITOURINARY: No complaint. GASTROINTESTINAL: No complaint. MUSCULOSKELETAL: No complaint. INTEGUMENTARY: As per HPI. PSYCHOLOGIC: No complaint. ENDOCRINE: No complaint. NEUROLOGIC: No complaint. PAST MEDICAL HISTORY: Significant for COPD, diabetes mellitus, congestive heart failure, asthma, hypertension, hyperlipidemia, osteoarthritis, pneumonia, gout and neuropathy. PAST SURGICAL HISTORY: , left carpal tunnel. SOCIAL HISTORY: The patient smoked between 1975 and 2007. She denies any drinking or drug use. FAMILY HISTORY: Father had history of COPD and diabetes. ALLERGIES: No known drug allergies. Medications include the patient is currently in Fioricet, DuoNeb, Zyloprim, Lipitor, Lexapro, Pepcid, iron sulfate, Lasix, Neurontin, Humalog, levofloxacin, Zestril, Claritin and Glucophage, Solu-Medrol, Lopressor, Singulair, Nitrostat, K-Dur, Lyrica, Ultram. On examination, blood pressure is 124/57 with a pulse of 70, temperature 97.3. She is 92% on 4 L nasal cannula. General description is a middle-age female up in the bed in no distress. No tachypnea or accessory muscle of respiration use. HEENT examination shows no pallor or scleral icterus. Oral mucous membranes dry. NECK: Trachea central. There is no thyromegaly. LUNGS: Unlabored breathing with decreased breath sounds at the bases. No wheeze. HEART: S1, S2 regular rate and rhythm. ABDOMEN: Soft, no tenderness. LOWER EXTREMITIES: 2+ edema of feet. Patient did have a superficial laceration on the right lower leg with no purulence. NEUROLOGICAL: The patient is awake, alert, oriented x3. Mood and affect normal. LABS: Hemoglobin 11.1, white count 8.3. BUN of 18, creatinine 0.82. Electrolytes have been normal. Liver enzymes are normal. Chest xray as mentioned above. DIAGNOSTIC IMPRESSION AND PLAN: 1. Patient admitted to the hospital with difficulty breathing, which is more likely multifactorial in a patient who did have significant swelling in legs, underlying fluid overload needs to be considered first though the CT angiogram was suggestive of pneumonia, the patient not behaving as such as she did not have significant cough or sputum production. No elevated white count or any fever, though cannot be entirely excluded either. 2. Patient with right lower extremity wound, superficial, likely from rupture blister with no evidence of any cellulitis. PLAN: 1. Will try to obtain sputum cultures. 2. Will apply Aquacel silver dressing to the right lower leg wound followed by an Jez wrap . 3. Continue the patient on Levaquin for possible underlying pneumonia. 4. Will follow up on the clinical condition and cultures to further adjust the medication if needed. Thank you for this consultation. We will follow this patient along with you. TOSIN
[2016-11-18 06:55] LABS: Glucose,Whole Blood 261 mg/dL (75-99)
[2016-11-18] MEDS: IPRATROPIUM-ALBUTEROL 3 ML NEB INHALATION SCH ×4 (07:05→20:22)
[2016-11-18 07:37] LABS: Glucose,Whole Blood 237 mg/dL (75-99)
[2016-11-18] MEDS: BUTA/APAP/CAF/COD 50-325-40-30 CAP PO PRN (08:16)
[2016-11-18] MEDS: PREGABALIN 100 MG CAP PO SCH ×2 (08:18→21:05)
[2016-11-18] MEDS: LISINOPRIL 5 MG TAB PO SCH (08:18)
[2016-11-18] MEDS: FUROSEMIDE 80 MG TAB PO SCH ×2 (08:18→21:04)
[2016-11-18] MEDS: FAMOTIDINE 20 MG TAB PO SCH (08:18)
[2016-11-18] MEDS: METOPROLOL TARTRATE 12.5 MG TAB PO SCH (08:18)
[2016-11-18] MEDS: FERROUS SULFATE 325 MG TAB PO SCH (08:18)
[2016-11-18] MEDS: POTASSIUM CHLORIDE ER 20 MEQ TAB.ER PO SCH ×2 (08:18→21:05)
[2016-11-18] MEDS: INSULIN LISPRO (humaLOG) 300 UNIT/3 ML VIAL SQ SCH ×3 (08:18→17:45)
[2016-11-18] MEDS: ALLOPURINOL 100 MG TAB PO SCH ×2 (08:18→21:04)
[2016-11-18] MEDS: ESCITALOPRAM 10 MG TAB PO SCH (08:18)
[2016-11-18] MEDS: GABAPENTIN 300 MG CAP PO SCH ×2 (08:19→21:05)
[2016-11-18 09:26] LABS: Glucose,Whole Blood 443 mg/dL (75-99)
[2016-11-18 11:27] LABS: Glucose,Whole Blood 326 mg/dL (75-99)
[2016-11-18] MEDS ORDERED: INSULIN LISPRO (humaLOG) 300 UNIT/3 ML VIAL SQ SCH (11:35)
[2016-11-18] MEDS ORDERED: INSULIN GLARGINE 100 UNIT/ML 10 ML VIAL SQ ONE (12:00)
[2016-11-18] MEDS: traMADol 50 MG TAB PO PRN (12:18)
[2016-11-18 13:47] LABS: Glucose,Whole Blood 300 mg/dL (75-99)
--- NOTE | 2016-11-18 14:24 | CDI ---
In responding to this query, please exercise your independent professional judgment. The [facility] Coding Staff and Clinical Documentation Specialists appreciate your assistance in clarifying documentation, maintaining compliance with coding guidelines, accurately documenting patients condition and capturing severity of illness. The fact that a question is asked does not imply that any particular answer is desired or expected. Communication forms are a method of clarifying documentation and are not made part of the Legal Health Record. Thank you in advance for your clarification. Last Revision, June 2015 Camemilie Cho [address] [facility] [place] [address] Documentation Clarification Form Date: 11/18/2016 2:18:00 PM From: Bhumika Colon Admit Date: 11/17/2016 12:19:00 AM Patient Name: Vish Sam Visit Number: [id number] Dr. Mary Campos Progress note on 11/17 states 'diabetes mellitus type 2 uncontrolled'. Clinical Indicators : Glucose on admission 265 Hgb A1c 9.4 Treatment: Insulin drip Accu-checks In order to capture the severity of Illness and necessary documentation specificity, please clarify: X DM Type 2 with Hyperglycemia DM Type 2 with Hypoglycemia Unable to Determine Other Condition Please document in your progress notes and discharge summary in order to capture severity of illness and risk of mortality. Include clinical findings that support your diagnosis. FYI: Press F11 to launch patient chart. Place X here if this finding has no clinical significance, is not applicable or if you are not able to provide any additional documentation. MTDD
[2016-11-18 15:19] LABS: Glucose,Whole Blood 263 mg/dL (75-99)
--- NOTE | 2016-11-18 15:45 | PN ---
Patient is a 51-year-old admitted with elevated blood sugars and hypoxemia. Patient has multiple medical problems. Patient continues to complain of shortness of breath. Patient continues to be on IV insulin. We will check with pulmonary and if we can switch the steroids to oral steroids, then we can probably control the blood sugars better. Until then we will go ahead and continue the IV insulin. REVIEW OF SYSTEMS: CARDIOVASCULAR: No chest pain, no orthopnea, no PND, no palpitations. PULMONARY: As described in HPI. GASTROINTESTINAL: No diarrhea, nausea or vomiting. No abdominal pain. Normoactive bowel sounds. NEUROLOGIC: No headaches, no weakness, no numbness. Medications were reviewed. PHYSICAL EXAMINATION: VITAL SIGNS: Temperature 97.7, pulse of 82, respiratory rate of 18, blood pressure 130/69, saturating at 93% on 4 liters of O2 nasal cannula. GENERAL: Morbidly obese, alert and oriented x3. HEENT: Pupils are round and equally reacting to light. EOMI. No scleral icterus. No conjunctival pallor. Normocephalic, atraumatic. No pharyngeal erythema. No thyromegaly. CARDIOVASCULAR: S1 and S2 present. No murmurs, rubs, or gallops. PULMONARY: Chest is clear to auscultation, no wheezing or crackles. ABDOMEN: Soft, nontender, nondistended, normoactive bowel sounds. No palpable organomegaly. MUSCULOSKELETAL: No joint swelling or deformity. EXTREMITIES: No significant change in the extremity exam compared to yesterday. NEUROLOGICAL: Gross neurological examination did not reveal any focal deficits. SKIN: No rashes. ASSESSMENT AND PLAN: 1. Chronic hypercapnic respiratory failure and chronic hypoxic respiratory failure with acute exacerbation of hypercapnic respiratory failure. 2. Possibility of right lower lobe pneumonia. 3. Pulmonary hypertension, cor pulmonale. 4. A left-sided pulmonary nodule. 5. Type 2 diabetes mellitus. 6. Hyperlipidemia. 7. Hypertension. 8. Hypothyroidism. 9. Right lower extremity diabetic wounds, which are improving, which will need local wound care. No antibiotics for cellulitis. Plan is to continue with levofloxacin for pneumonia, possibility of pneumonia, right upper lobe pneumonia. We will continue with systemic steroids, inhalation treatments, IV insulin. The rest of the management as mentioned in the interval history.
--- NOTE | 2016-11-18 16:44 | PN ---
DATE OF SERVICE: 11/18/2016 The patient is a 51-year-old morbidly obese female who is seen sitting up at the bedside, playing a game on her iPad. Is awake, alert. Complains of still feeling a little short of breath. Is afebrile. Hemodynamically stable, in no acute distress. On physical exam, vital signs, temp is 97.7, heart rate is 82, respiratory rate 18, blood pressure is 113/69, O2 sats 93% on 4 liters O2 via nasal cannula. HEENT: Head is normocephalic, atraumatic. NECK: Supple. Trachea is midline. LUNGS: With decreased breath sounds. No clear rales or wheezes. HEART: S1 and S2 are heard. Not tachycardic. ABDOMEN: Soft. Bowel sounds are positive. EXTREMITIES: Chronic edema. Patient with Jez wraps at this time. NEUROLOGIC: The patient is awake and alert. LABS: No new labs to review. IMAGING: No new imaging to review. IMPRESSION: 1. Chronic hypoxic and hypercapnic respiratory failure. 2. Right upper lobe pneumonia. 3. Acute exacerbation of chronic obstructive pulmonary disease and asthma, severe persistent. 4. Pulmonary hypertension and cor pulmonale. 5. Morbid obesity. 6. Obstructive sleep apnea/obesity hypoventilation syndrome, now on CPAP. 7. Left lung nodule treated with radiation positive. 8. Diabetes mellitus type 2 uncontrolled with diabetic neuropathy. 9. Dyslipidemia. 10. Hypertension. 11. Hypothyroidism. 12. Right lower extremity diabetic wound. PLAN: Continue current medications which have been reviewed, with oxygen to maintain saturations greater than or equal to 88%. Continue bronchodilators. We will add aerosolized steroids. Continue IV Solu-Medrol and leukotriene inhibitor. Continue to wear CPAP nightly during sleep. Maintain fluid restriction and try to maintain negative fluid balance with diuresis as needed. Continue PT and OT. Continue GI and DVT prophylaxis. Continue incentive spirometry and pulmonary hygiene and will follow the patient closely with you, making further changes as necessary.
[2016-11-18 17:17] LABS: Glucose,Whole Blood 269 mg/dL (75-99)
[2016-11-18] MEDS: guaiFENesin-Coden 100-10MG/5ML 10 ML CUP PO PRN (18:00)
[2016-11-18 19:56] LABS: Glucose,Whole Blood 241 mg/dL (75-99)
[2016-11-18] MEDS: BUDESONIDE 0.5 MG/2 ML NEBU INHALATION SCH (20:22)
[2016-11-18] MEDS: ATORVASTATIN 20 MG TAB PO SCH (21:04)
[2016-11-18] MEDS: LEVOFLOXACIN 500 MG TAB PO SCH (21:05)
[2016-11-18] MEDS: MONTELUKAST 10 MG TAB PO SCH (21:05)
[2016-11-18 21:17] LABS: Glucose,Whole Blood 224 mg/dL (75-99)
[2016-11-18 23:27] LABS: Glucose,Whole Blood 230 mg/dL (75-99)
[2016-11-19 01:28] LABS: Glucose,Whole Blood 187 mg/dL (75-99)
[2016-11-19 03:39] LABS: Glucose,Whole Blood 247 mg/dL (75-99)
[2016-11-19 05:48] LABS: Glucose,Whole Blood 114 mg/dL (75-99)
[2016-11-19 06:55] LABS: Glucose,Whole Blood 104 mg/dL (75-99)
[2016-11-19] MEDS: FAMOTIDINE 20 MG TAB PO SCH (07:47)
[2016-11-19] MEDS: LISINOPRIL 5 MG TAB PO SCH (07:47)
[2016-11-19] MEDS: METOPROLOL TARTRATE 12.5 MG TAB PO SCH (07:47)
[2016-11-19] MEDS: FERROUS SULFATE 325 MG TAB PO SCH (07:48)
[2016-11-19] MEDS: FUROSEMIDE 80 MG TAB PO SCH ×2 (07:48→20:10)
[2016-11-19] MEDS: ALLOPURINOL 100 MG TAB PO SCH ×2 (07:48→20:10)
[2016-11-19] MEDS: ESCITALOPRAM 10 MG TAB PO SCH (07:48)
[2016-11-19] MEDS: GABAPENTIN 300 MG CAP PO SCH ×2 (07:48→20:10)
[2016-11-19] MEDS: predniSONE 20 MG TAB PO SCH (07:48)
[2016-11-19] MEDS: POTASSIUM CHLORIDE ER 20 MEQ TAB.ER PO SCH ×2 (07:48→20:10)
[2016-11-19] MEDS: INSULIN LISPRO (humaLOG) 300 UNIT/3 ML VIAL SQ SCH ×3 (07:49→18:00)
[2016-11-19] MEDS: INSULIN GLARGINE 100 UNIT/ML 10 ML VIAL SQ SCH (07:49)
[2016-11-19 07:52] LABS: Glucose,Whole Blood 110 mg/dL (75-99)
[2016-11-19] MEDS: PREGABALIN 100 MG CAP PO SCH ×2 (07:53→20:09)
[2016-11-19] MEDS: guaiFENesin-Coden 100-10MG/5ML 10 ML CUP PO PRN (07:54)
[2016-11-19] MEDS: BUDESONIDE 0.5 MG/2 ML NEBU INHALATION SCH ×2 (08:16→19:57)
[2016-11-19] MEDS: IPRATROPIUM-ALBUTEROL 3 ML NEB INHALATION SCH ×5 (08:16→20:03)
[2016-11-19 08:44] LABS: Glucose,Whole Blood 198 mg/dL (75-99)
[2016-11-19 09:37] LABS: Anion Gap 11 mmol/L; Blood Urea Nitrogen 32 mg/dL (7-17); Calcium 9.2 mg/dL (8.4-10.2); Carbon Dioxide 35 mmol/L (22-30); Chloride 98 mmol/L (98-107); Glucose 150 mg/dL (74-99); Non-African American GFR(MDRD) >60 (>60 ml/min/1.73 sqM); Potassium 4.2 mmol/L (3.5-5.1); Sodium 144 mmol/L (137-145)
[2016-11-19 09:54] LABS: CH 29.5; CHCM 31.4; HCT 36.6 % (34.0-46.0); HDW 3.01; HGB 12.1 gm/dL (11.4-16.0); Hypochromasia Slight; MCH 31.1 pg (25.0-35.0); MCV 94.5 fL (80.0-100.0); Mean Platelet Volume 7.5; RBC 3.88 m/uL (3.80-5.40); RDW 13.9 % (11.5-15.5); WBC 10.4 k/uL (3.8-10.6)
--- NOTE | 2016-11-19 10:54 | PN ---
DATE OF SERVICE: 11/18/2016 REASON FOR FOLLOWUP: 1. Pneumonia. 2. Right leg wound. INTERVAL HISTORY: The patient is afebrile. Her breathing has slightly improved. Patient denies any significant chest pain. Occasional cough. No abdominal pain. Right leg overall swelling has improved. On examination, blood pressure 115/42 with a pulse of 80, temperature 97.7. She is 95% on 4 L nasal cannula. General description is a middle-age female up in the bed in no distress. RESPIRATORY SYSTEM: Unlabored breathing with decreased breath sounds at the bases. No wheeze. HEART: S1, S2. Regular rate and rhythm. ABDOMEN: Soft, no tenderness. Right leg overall swelling has improved. LABS: Hemoglobin is 11.4, white count 8.3. DIAGNOSTIC IMPRESSION AND PLAN: 1. Patient with right lower extremity wound in a patient who did have diffuse swelling and redness and likely from underlying congestive heart failure. Continue with local wound care with Aquacel Silver along with Jez wrap. 2. The patient with pneumonia. Currently being covered with Levaquin. Will try to obtain sputum. Continue supportive care TOSIN
[2016-11-19 11:26] LABS: Glucose,Whole Blood 170 mg/dL (75-99)
--- NOTE | 2016-11-19 13:07 | P.PN ---
Subjective Principal diagnosis: Right upper lobe pneumonia Patient seen and examined. Patient states her breathing is better today. She is hoping to go to rehab soon. She admits that while she was at rehab she was not wearing her CPAP. She is advised to wear the CPAP nightly no matter where she is. Objective - Vital Signs Vital signs: Vital Signs Temp 97.7 F 11/19/16 07:00 Pulse 88 11/19/16 11:36 Resp 20 11/19/16 08:00 BP 116/65 11/19/16 07:00 Pulse Ox 93 L 11/19/16 08:17 Intake & Output 11/18/16 11/19/16 11/19/16 18:59 06:59 18:59 Intake Total 2085.101 1290.966 15.4 Balance 2085.101 1290.966 15.4 Intake: Intake, IV Titration 165.101 90.966 15.4 Amount Insulin Regular 100 unit 165.101 90.966 15.4 In Sodium Chloride 0.9% 100 ml @ Titrate IV .Q0M [facility] Rx#:[id number] Oral 1920 1200 Other: # Voids 2 1 - Exam Gen.: Patient is alert and oriented 3, no acute distress, morbidly obese Cardiovascular: Regular rate and rhythm, S1/S2 Lungs: Diminished breath sounds bilaterally Abdomen: Soft nontender nondistended positive bowel sounds Extremities: 3+ pitting edema with open wounds on her right lower extremity - Labs CBC & Chem 7: 11/19/16 08:15 11/19/16 08:15 Labs: Abnormal Lab Results - Last 24 Hours (Table) 11/18/16 11/18/16 11/18/16 Range/Units 13:34 15:16 17:15 Carbon Dioxide (22-30) mmol/L BUN (7-17) mg/dL Glucose (74-99) mg/dL POC Glucose (mg/dL) 300 H 263 H 269 H (75-99) mg/dL 11/18/16 11/18/16 11/18/16 Range/Units 19:53 21:15 23:25 Carbon Dioxide (22-30) mmol/L BUN (7-17) mg/dL Glucose (74-99) mg/dL POC Glucose (mg/dL) 241 H 224 H 230 H (75-99) mg/dL 11/19/16 11/19/16 11/19/16 Range/Units 01:24 03:20 05:45 Carbon Dioxide (22-30) mmol/L BUN (7-17) mg/dL Glucose (74-99) mg/dL POC Glucose (mg/dL) 187 H 247 H 114 H (75-99) mg/dL 11/19/16 11/19/16 11/19/16 Range/Units 06:52 07:38 08:15 Carbon Dioxide 35 H (22-30) mmol/L BUN 32 H (7-17) mg/dL Glucose 150 H (74-99) mg/dL POC Glucose (mg/dL) 104 H 110 H (75-99) mg/dL 11/19/16 11/19/16 Range/Units 08:41 11:23 Carbon Dioxide (22-30) mmol/L BUN (7-17) mg/dL Glucose (74-99) mg/dL POC Glucose (mg/dL) 198 H 170 H (75-99) mg/dL Assessment and Plan Plan: Chronic hypoxic and hypercapnic respiratory failure Right upper lobe pneumonia Acute exacerbation of COPD and asthma, severe persistent Pulmonary hypertension and cor pulmonale Morbid obesity LINDA/OHS, now on CPAP Left lung nodule treated with radiation, PET positive Diabetes mellitus type 2 uncontrolled with diabetic neuropathy, with hyperglycemia Dyslipidemia Hypertension Hypothyroidism Right lower extremity diabetic wounds O2 to maintain saturation greater than equal to 88% Pulmicort and duo nebs Singulair Antibiotics per ID Patient encouraged to wear CPAP nightly Fluid restrictions, I/O, daily weight Diuresis as able PT and OT GI and DVT prophylaxis Incentive spirometry and pulmonary hygiene Plan for possible discharge to rehab soon
[2016-11-19 13:35] LABS: Glucose,Whole Blood 200 mg/dL (75-99)
[2016-11-19] MEDS: INSULIN REGULAR 100 UNIT in SODIUM CHLORIDE 0.9% 100 ML IV SCH ×2 (13:38→19:27)
[2016-11-19 15:24] LABS: Glucose,Whole Blood 266 mg/dL (75-99)
--- NOTE | 2016-11-19 16:08 | PN ---
DATE OF SERVICE: 11/19/2016 REASON FOR FOLLOWUP: Right leg wound and pneumonia. INTERVAL HISTORY: The patient is afebrile. Her breathing has improved. The patient denies significant chest pain. Occasional cough. Denies any pain in her leg area. No diarrhea. On examination, blood pressure is 116/65 with a pulse of 96, temperature 97.7. She is 92% on 4 L nasal cannula. General description is a middle-aged female up in the bed in no distress. RESPIRATORY SYSTEM: Unlabored breathing. Clear to auscultation anteriorly. HEART: S1, S2. Regular rate and rhythm. ABDOMEN: Soft. No tenderness. Right leg is currently dressed up. No obvious drainage on the dressing. LABS: BUN of 32 with a creatinine 0.88. Hemoglobin is 12.1, white count 10.4. DIAGNOSTIC IMPRESSION AND PLAN: 1. Patient with pneumonia; seems to be showing overall clinical improvement. Currently on oral Levaquin. Sputum negative for any resistant pathogen. 2. Patient with right leg wound. Continue Aquacel Silver dressing and Jez wrap to keep the swelling down.
[2016-11-19 17:23] LABS: Glucose,Whole Blood 237 mg/dL (75-99)
[2016-11-19] MEDS: metFORMIN 500 MG TAB PO SCH (18:01)
[2016-11-19] MEDS: traMADol 50 MG TAB PO PRN (18:01)
--- NOTE | 2016-11-19 18:36 | P.PN ---
Subjective Date of service 11/19/2016. Progress note being dictated for Dr. Rudd. Interval history: Is a 51-year-old female admitted with chronic hypercapnic, hypoxic respiratory failure, possible right lower lobe pneumonia, diabetes mellitus uncontrolled and multiple other medical issues. Patient has not been compliant with her CPAP. Maintained on nebulized bronchodilators, Levaquin, systemic steroids, insulin drip. Breathing improving. Evaluated by both infectious disease and pulmonary with recommendations noted. Afebrile. Objective - Vital Signs Vital signs: Vital Signs Temp 97.6 F 11/19/16 15:00 Pulse 80 11/19/16 15:00 Resp 20 11/19/16 15:32 BP 119/63 11/19/16 15:00 Pulse Ox 95 11/19/16 15:00 Intake & Output 11/18/16 11/19/16 11/19/16 18:59 06:59 18:59 Intake Total 2085.101 1290.966 604.117 Balance 2085.101 1290.966 604.117 Intake: Intake, IV Titration 165.101 90.966 64.117 Amount Insulin Regular 100 unit 165.101 90.966 64.117 In Sodium Chloride 0.9% 100 ml @ Titrate IV .Q0M [facility] Rx#:[id number] Oral 1920 1200 540 Other: # Voids 2 1 2 - Exam PHYSICAL EXAM: VITAL SIGNS: As above GENERAL: [Sitting up at side of bed, no acute distress HEENT: [Pupils equal conjunctiva normal.] NECK: [Supple, no JVD] RESPIRATORY EFFORT:[Mildly Increased] LUNGS: [Diminished throughout, no wheezes crackles or rhonchi] CARDIOVASCULAR[regular S1 and S2, no murmurs rubs or gallops, positive edema] GI: [Abdomen soft, nondistended, nontender, positive bowel sounds. No organomegaly] PSYCH: [Alert and oriented -3, mood and affect normal.] EXTREMITIES: Bilateral lower extremities Jez wrapped, clean dry and intact, positive edema NEURO: No focal deficits, was all 4 extremities well, strength and sensation grossly intact Microbiology 11/19/16 11:25 Sputum Sputum Culture - Preliminary - Labs CBC & Chem 7: 11/19/16 08:15 11/19/16 08:15 Labs: Abnormal Lab Results - Last 24 Hours (Table) 11/18/16 11/18/1611/18/17 Range/Units 19:53 21:15 23:25 Carbon Dioxide (22-30) mmol/L BUN (7-17) mg/dL Glucose (74-99) mg/dL POC Glucose (mg/dL) 241 H 224 H 230 H (75-99) mg/dL 11/19/16 11/19/16 11/19/16 Range/Units 01:24 03:20 05:45 Carbon Dioxide (22-30) mmol/L BUN (7-17) mg/dL Glucose (74-99) mg/dL POC Glucose (mg/dL) 187 H 247 H 114 H (75-99) mg/dL 11/19/16 11/19/16 11/19/16 Range/Units 06:52 07:38 08:15 Carbon Dioxide 35 H (22-30) mmol/L BUN 32 H (7-17) mg/dL Glucose 150 H (74-99) mg/dL POC Glucose (mg/dL) 104 H 110 H (75-99) mg/dL 11/19/16 11/19/16 11/19/16 Range/Units 08:41 11:23 13:22 Carbon Dioxide (22-30) mmol/L BUN (7-17) mg/dL Glucose (74-99) mg/dL POC Glucose (mg/dL) 198 H 170 H 200 H (75-99) mg/dL 11/19/16 11/19/16 Range/Units 15:22 17:21 Carbon Dioxide (22-30) mmol/L BUN (7-17) mg/dL Glucose (74-99) mg/dL POC Glucose (mg/dL) 266 H 237 H (75-99) mg/dL Microbiology - Last 24 Hours (Table) 11/19/16 11:25 Sputum Culture - Preliminary Sputum Assessment and Plan Plan: 1. [Acute on Chronic hypoxic, hypercapnic respiratory failure,]. 2. [Possible acute right lower lobe pneumonia]. 3. [Pulmonary hypertension, cor pulmonale]. 4. [Left sided pulmonary nodule]. 5. [Diabetes mellitus type 2, uncontrolled, on insulin drip]. 6. [Hyperlipidemia]. 7. [Hypertension]. 8. Hypothyroidism 9. Right lower extremity diabetic wounds, improving requiring local wound care. No antibiotics for cellulitis. 10. Morbid obesity, BMI 56.1 Plan: Continue on current medication regime, nebulized dilators, systemic steroids, antibiotics, monitoring and symptomatic treatment. Maintain insulin drip while on steroids. CPAP at night. PT/OT .Follow closely with infectious disease and pulmonary. Further recommendations to follow. The impression and plan of care has been dictated as directed. : I performed a H&P examination of this patient and discussed the same with the dictator. I agree with the dictator's note. Any additional findings/opinions/ etc. will be noted.
[2016-11-19 19:55] LABS: Glucose,Whole Blood 171 mg/dL (75-99)
[2016-11-19] MEDS: LEVOFLOXACIN 500 MG TAB PO SCH (20:09)
[2016-11-19] MEDS: MONTELUKAST 10 MG TAB PO SCH (20:10)
[2016-11-19] MEDS: ATORVASTATIN 20 MG TAB PO SCH (20:10)
[2016-11-19 21:49] LABS: Glucose,Whole Blood 146 mg/dL (75-99)
[2016-11-19 23:51] LABS: Glucose,Whole Blood 134 mg/dL (75-99)
[2016-11-20 01:55] LABS: Glucose,Whole Blood 148 mg/dL (75-99)
[2016-11-20 04:05] LABS: Glucose,Whole Blood 111 mg/dL (75-99)
[2016-11-20 04:52] LABS: Glucose,Whole Blood 116 mg/dL (75-99)
[2016-11-20 05:56] LABS: Glucose,Whole Blood 101 mg/dL (75-99)
[2016-11-20] MEDS: traMADol 50 MG TAB PO PRN (06:24)
[2016-11-20 06:54] LABS: Glucose,Whole Blood 107 mg/dL (75-99)
[2016-11-20] MEDS: INSULIN LISPRO (humaLOG) 300 UNIT/3 ML VIAL SQ SCH ×3 (07:37→17:44)
[2016-11-20] MEDS: metFORMIN 500 MG TAB PO SCH ×2 (07:37→17:44)
[2016-11-20 08:03] LABS: Glucose,Whole Blood 128 mg/dL (75-99)
[2016-11-20] MEDS: IPRATROPIUM-ALBUTEROL 3 ML NEB INHALATION SCH ×4 (08:29→20:34)
[2016-11-20] MEDS: BUDESONIDE 0.5 MG/2 ML NEBU INHALATION SCH ×2 (08:29→20:34)
[2016-11-20] MEDS: LISINOPRIL 5 MG TAB PO SCH (08:34)
[2016-11-20] MEDS: FUROSEMIDE 80 MG TAB PO SCH ×2 (08:34→20:09)
[2016-11-20] MEDS: GABAPENTIN 300 MG CAP PO SCH ×2 (08:34→20:09)
[2016-11-20] MEDS: FAMOTIDINE 20 MG TAB PO SCH (08:34)
[2016-11-20] MEDS: FERROUS SULFATE 325 MG TAB PO SCH (08:34)
[2016-11-20] MEDS: POTASSIUM CHLORIDE ER 20 MEQ TAB.ER PO SCH ×2 (08:34→20:10)
[2016-11-20] MEDS: ESCITALOPRAM 10 MG TAB PO SCH (08:34)
[2016-11-20] MEDS: ALLOPURINOL 100 MG TAB PO SCH ×2 (08:35→20:09)
[2016-11-20] MEDS: predniSONE 20 MG TAB PO SCH (08:35)
[2016-11-20] MEDS: METOPROLOL TARTRATE 12.5 MG TAB PO SCH (08:37)
[2016-11-20] MEDS: INSULIN GLARGINE 100 UNIT/ML 10 ML VIAL SQ SCH (09:04)
[2016-11-20] MEDS: PREGABALIN 100 MG CAP PO SCH ×2 (09:04→20:10)
[2016-11-20 09:09] LABS: Glucose,Whole Blood 168 mg/dL (75-99)
[2016-11-20 11:19] LABS: Glucose,Whole Blood 104 mg/dL (75-99)
[2016-11-20 12:01] LABS: Glucose,Whole Blood 97 mg/dL (75-99)
[2016-11-20 13:14] LABS: Glucose,Whole Blood 164 mg/dL (75-99)
[2016-11-20 15:03] LABS: Glucose,Whole Blood 173 mg/dL (75-99)
[2016-11-20 17:26] LABS: Glucose,Whole Blood 216 mg/dL (75-99)
--- NOTE | 2016-11-20 18:54 | PN ---
DATE OF SERVICE: 11/20/2016. She continues to have shortness of breath, but is almost back to baseline. On physical examination, her respiratory rate is 19, pulse rate of 82, temperature 97.1, blood pressure 119/62, O2 sat on room air was 97%. HEENT reveals pupils that are equal. No jugular venous distention. Chest reveals decreased breath sounds, prolonged expiration. Cardiovascular system reveals an S1 and S2. ABDOMEN: Soft. There is 1+ to 2+ pedal edema. IMPRESSION: 1. Acute on chronic hypercapnic respiratory failure. 2. Right upper lobe pneumonia. 3. Left lung nodule PET scan positive which has been treated with radiation, 4. Severe obstructive sleep apnea and obesity hypoventilation syndrome for which he is on CPAP. 5. Medical debility. 6. Diabetic wound right lower extremity. Continue bronchodilators, aerosolized steroids, Singulair and encouraged to where CPAP. Increase her activity level. Have her seen by physical medicine and rehab to see if she is a candidate for inpatient rehab.
[2016-11-20 19:03] LABS: Glucose,Whole Blood 271 mg/dL (75-99)
[2016-11-20] MEDS: INSULIN REGULAR 100 UNIT in SODIUM CHLORIDE 0.9% 100 ML IV SCH (19:47)
[2016-11-20] MEDS: ATORVASTATIN 20 MG TAB PO SCH (20:09)
[2016-11-20] MEDS: MONTELUKAST 10 MG TAB PO SCH (20:09)
[2016-11-20] MEDS: LEVOFLOXACIN 500 MG TAB PO SCH (20:10)
[2016-11-20 21:00] LABS: Glucose,Whole Blood 160 mg/dL (75-99)
--- NOTE | 2016-11-20 21:50 | PN ---
DATE OF SERVICE: 11/20/2016 INTERVAL HISTORY: Ms. Sam is a 51-year-old female with a past medical history of morbid obesity, pulmonary hypertension, type 2 diabetes mellitus, hyperlipidemia, hypertension, hypothyroidism, admitted to the hospital with a chief complaint of shortness of breath. She has right lower lobe pneumonia and poorly controlled diabetes that are currently active medical issues. Patient is noncompliant with her diet. She is noncompliant with her CPAP. Patient has been started on steroids, insulin drip and has been getting Levaquin for her pneumonia and right lower extremity diabetic ulcer. The patient is currently sitting up in her bed, having her dinner, appears to be in no acute distress. She does not have any active complaints. She states her breathing is getting better, but still she is not able to get up from the bed and go to the bathroom without getting short of breath. She denies having any fevers, chills, or rigors. No abdominal pain, nausea or vomiting. Patient is still on the insulin drip. REVIEW OF SYSTEMS: As above. Patient's medications pain today reviewed. On examination, patient's vital signs: Temperature is 97.8, heart rate 82, respiratory rate 21, blood pressure 130/68, saturating at 95% on 4L of oxygen via nasal cannula. Patient is morbidly obese, sitting up in the bed, appears to be no acute distress. HEAD: Atraumatic, normocephalic. EYES: Pupils round and reactive. No pallor. No icterus. Neck is short. CARDIOVASCULAR: Distant heart sounds heard. RESPIRATORY: Distant breath sounds heard. GI: Abdomen is soft, nontender. Bowel sounds are positive. Organomegaly difficult to appreciate due to huge body habitus. Right leg is currently in wrapped in an Jez bandage. No drainage or bleeding seen on the dressing. I did not open the dressing today. Patient's labs: White count of 10.4, hemoglobin is 12.1. Sodium 144, potassium 4.2, chloride 98, bicarb 35, BUN 32, creatinine 0.88. These are from yesterday. ASSESSMENT: 1. Acute right upper lobe pneumonia. 2. Acute on chronic hypoxic hypercapnic respiratory failure. 3. Pulmonary hypertension, cor pulmonale. 4. Left-sided pulmonary nodule. 5. Type 2 diabetes mellitus, poorly controlled, on insulin drip. 6. Hyperlipidemia. 7. Hypertension. 8. Hypothyroidism. 9. Right lower extremity diabetic ulcers currently getting local wound care with Aquacel Silver dressing and Jez wrap. Morbid obesity with body mass index of 56.1. PLAN: The plan is to continue the patient on systemic steroids, antibiotics and breathing treatments, continue the patient on insulin drip while she is on steroids and blood sugars are high. Continue with CPAP at night. Pulmonary and ID on board following the patient and further recommendations to follow, depending on the progress of the patient. TOSIN
[2016-11-20 23:11] LABS: Glucose,Whole Blood 138 mg/dL (75-99)
[2016-11-21 01:01] LABS: Glucose,Whole Blood 153 mg/dL (75-99)
[2016-11-21 03:11] LABS: Glucose,Whole Blood 130 mg/dL (75-99)
[2016-11-21 05:12] LABS: Glucose,Whole Blood 100 mg/dL (75-99)
[2016-11-21 06:24] LABS: Glucose,Whole Blood 132 mg/dL (75-99)
[2016-11-21 08:07] LABS: Glucose,Whole Blood 93 mg/dL (75-99)
[2016-11-21] MEDS: PREGABALIN 100 MG CAP PO SCH ×2 (08:12→21:11)
[2016-11-21] MEDS: ESCITALOPRAM 10 MG TAB PO SCH (08:13)
[2016-11-21] MEDS: ALLOPURINOL 100 MG TAB PO SCH ×2 (08:13→21:05)
[2016-11-21] MEDS: metFORMIN 500 MG TAB PO SCH ×2 (08:13→17:59)
[2016-11-21] MEDS: predniSONE 20 MG TAB PO SCH (08:13)
[2016-11-21] MEDS: POTASSIUM CHLORIDE ER 20 MEQ TAB.ER PO SCH ×2 (08:13→21:06)
[2016-11-21] MEDS: FERROUS SULFATE 325 MG TAB PO SCH (08:13)
[2016-11-21] MEDS: INSULIN LISPRO (humaLOG) 300 UNIT/3 ML VIAL SQ SCH ×4 (08:14→21:05)
[2016-11-21] MEDS: GABAPENTIN 300 MG CAP PO SCH ×2 (08:14→21:05)
[2016-11-21] MEDS: LISINOPRIL 5 MG TAB PO SCH (08:14)
[2016-11-21] MEDS: METOPROLOL TARTRATE 12.5 MG TAB PO SCH (08:14)
[2016-11-21] MEDS: FAMOTIDINE 20 MG TAB PO SCH (08:14)
[2016-11-21] MEDS: FUROSEMIDE 80 MG TAB PO SCH ×2 (08:14→16:40)
[2016-11-21] MEDS: INSULIN GLARGINE 100 UNIT/ML 10 ML VIAL SQ SCH (08:15)
[2016-11-21] MEDS: BUDESONIDE 0.5 MG/2 ML NEBU INHALATION SCH ×2 (08:38→21:15)
[2016-11-21] MEDS: IPRATROPIUM-ALBUTEROL 3 ML NEB INHALATION SCH ×4 (08:39→21:15)
[2016-11-21 09:18] LABS: Glucose,Whole Blood 212 mg/dL (75-99)
[2016-11-21 10:34] LABS: Glucose,Whole Blood 99 mg/dL (75-99)
[2016-11-21 11:40] LABS: Glucose,Whole Blood 100 mg/dL (75-99)
[2016-11-21 11:40] LABS: Glucose,Whole Blood 67 mg/dL (75-99)
[2016-11-21 12:41] LABS: Glucose,Whole Blood 99 mg/dL (75-99)
[2016-11-21 14:11] LABS: Glucose,Whole Blood 253 mg/dL (75-99)
[2016-11-21 14:58] LABS: Glucose,Whole Blood 245 mg/dL (75-99)
[2016-11-21 16:06] LABS: Glucose,Whole Blood 211 mg/dL (75-99)
[2016-11-21 17:25] LABS: Glucose,Whole Blood 189 mg/dL (75-99)
[2016-11-21] MEDS: BUTA/APAP/CAF/COD 50-325-40-30 CAP PO PRN (18:23)
[2016-11-21 21:05] LABS: Glucose,Whole Blood 177 mg/dL (75-99)
[2016-11-21] MEDS: ATORVASTATIN 20 MG TAB PO SCH (21:05)
[2016-11-21] MEDS: LEVOFLOXACIN 500 MG TAB PO SCH (21:06)
[2016-11-21] MEDS: traMADol 50 MG TAB PO PRN (21:11)
[2016-11-21] MEDS: MONTELUKAST 10 MG TAB PO SCH (21:37)
[2016-11-22] MEDS: BUTA/APAP/CAF/COD 50-325-40-30 CAP PO PRN (01:48)
--- NOTE | 2016-11-22 06:33 | P.CONS ---
History of Present Illness - Chief Complaint Medical debility. - History of Present Illness I had the op to see patient for inpatient rehab consultation with regard to medical debility. She was admitted to [facility] November 17 with shortness of breath. Seen by pulmonary who notes hypercapnic respiratory failure with COPD exacerbation and obstructive sleep apnea. Chest x-ray with him infiltrate right upper lobe. CTA negative for PE. PT and OT prescribed. Previous functional sick, as elicited patient: 51-year-old right-handed white female is and lives in one floor home with friend. History smoking but doesn't smoke currently. Denies cough. Is on disability. Noted friend and /or daughter do the advanced homemaking task. Patient describes independent with sitdown shower and gait without device. Regular doctor is Dr. Dimas. Family medical history of diabetes and hypertension in father. Review of Systems Review of systems: ENT: Denies sneezes or discharge. Eyes: Denies discharge or photophobia. Cardiac: Denies chest pain or palpitation. Pulmonary: Mild shortness of breath. Breast: Denies discharge or lumps. Gastrointestinal: Denies nausea, emesis, constipation, diarrhea. Genitourinary: Denies discharge or frequency. Musculoskeletal: Denies muscle or bone aches. Neurologic: Denies motor or sensory change. Endocrine: Denies shakes or sweats. Oncology: Denies cancers. Dermatologic: Denies rash, itching, pruritus. ALLERGY/immunology: Denies sneezes, rashes. Past Medical History Past Medical History: Asthma, Chest Pain / Angina, Heart Failure, COPD, Diabetes Mellitus, Hyperlipidemia, Hypertension, Neurologic Disorder, Osteoarthritis (OA), Pneumonia, Respiratory Disorder, Sleep Apnea/CPAP/BIPAP, Syncope, Thyroid Disorder Additional Past Medical History / Comment(s): GOUT, NEUROPATHY-FEET, sleep apnea but won't wear cpap, has home 02 4 liters n/c atc, past resp failure, hypothyroid,,lt lower lobe nodule-radiation therapy(,unsuccesful bx) History of Any Multi-Drug Resistant Organisms: None Reported Past Surgical History: Section Additional Past Surgical History / Comment(s): LT CARPAL TUNNEL, 3 unsuccessful attempts at lt lobe bx Past Anesthesia/Blood Transfusion Reactions: No Reported Reaction Additional Past Anesthesia/Blood Transfusion Reaction / Comm: CLAUSTERPHOBIA Past Psychological History: No Psychological Hx Reported Additional Psychological History / Comment(s): PT LIVES AT HOME WITH A FRIEND, CURRENTLY RECIEVING HOME CARE SERVICES THRU [facility] Smoking Status: Former smoker Past Alcohol Use History: None Reported Additional Past Alcohol Use History / Comment(s): STARTED SMOKING 1975-STOPPED 2007 Past Drug Use History: None Reported - Past Family History Father Family Medical History: COPD, Diabetes Mellitus Mother History Unknown: Yes Family Medical History: No Reported History Additional Family Medical History / Comment(s): AT AGE 43 FROM SUICIDE Medications and Allergies Home Medications Medication Instructions Recorded Confirmed Type Famotidine [Pepcid] 20 mg PO DAILY 08/19/14 11/16/16 History Loratadine 10 mg PO DAILY PRN 08/19/14 11/16/16 History Ferrous Sulfate [Iron (65 MG 325 mg PO DAILY 08/20/14 11/16/16 History Elemental)] Nitroglycerin Sl Tabs [Nitrostat] 0.4 mg SUBLINGUAL Q5M PRN 08/20/14 11/16/16 History metFORMIN HCL 1,000 mg PO BID 08/20/14 11/16/16 History Lisinopril [Zestril] 5 mg PO DAILY 03/13/15 11/16/16 History Gabapentin [Neurontin] 300 mg PO BID 03/15/16 11/16/16 History Simvastatin [Zocor] 40 mg PO HS 03/15/16 11/16/16 History Febuxostat [Uloric] 80 mg PO DAILY 05/04/16 11/16/16 History Insulin Glargine [Lantus] 120 unit SQ DAILY@0900 06/08/16 11/16/16 History Pregabalin [Lyrica] 100 mg PO BID 06/08/16 11/16/16 History Metoprolol Tartrate [Lopressor] 12.5 mg PO DAILY 07/18/16 11/16/16 History Montelukast [Singulair] 10 mg PO HS 07/18/16 11/16/16 History Albuterol Inhaler [Ventolin Hfa 1 - 2 puff INHALATION RT-Q6H PRN 08/24/16 History Inhaler] Ipratropium-Albuterol Nebulize 3 ml INHALATION RT-QID 10/29/16 11/16/16 History [Duoneb 0.5 mg-3 mg/3 ml Soln] Amoxic-Pot Clav 500-125 mg 1 tab PO BID 11/16/16 11/16/16 History [Augmentin 500-125 mg] Buta/APAP/Caf/Cod 41-695-85-30 1 cap PO Q4H PRN 11/16/16 11/16/16 History [Fioricet w/Cod 65-948-83-30MG] Fluticasone/Vilanterol [Breo 1 puff INHALATION RT-DAILY 11/16/16 11/16/16 History Ellipta 100-25 Mcg Inhaler] Furosemide [Lasix] 80 mg PO BID 11/16/16 11/16/16 History INSULIN LISPRO (humaLOG) [humaLOG 10 unit SQ AC-TID 11/16/16 11/16/16 History (formulary)] Allergies Allergy/AdvReac Type Severity Reaction Status Date / Time No Known Allergies Allergy Verified 11/16/16 21:48 Physical Exam Vitals: Vital Signs Temp Pulse Pulse Resp BP Pulse Ox 11/21/16 23:00 97.0 F L 84 18 101/65 93 L 11/21/16 21:29 84 11/21/16 21:15 84 11/21/16 16:55 84 11/21/16 16:41 84 11/21/16 15:00 97.8 F 88 21 102/54 93 L 11/21/16 12:40 82 11/21/16 12:23 80 22 11/21/16 08:50 80 11/21/16 08:40 80 11/21/16 07:00 97.8 F 111 H 22 106/41 95 Intake and Output 11/21/16 11/21/16 11/22/16 14:59 22:59 06:59 Intake Total 12.708 19.6 Balance 12.708 19.6 Intake: Intake, IV Titration 12.708 19.6 Amount Insulin Regular 100 unit 12.708 19.6 In Sodium Chloride 0.9% 100 ml @ Titrate IV .Q0M [facility] Rx#:[id number] Other: # Voids 1 2 Weight 174 kg Patient Weight 11/22/16 06:59 Weight 174 kg Skin: Good color, texture, turgor. General: Morbidly obese and comfortable appearance. Head: Normocephalic, atraumatic. Eyes: Symmetric. Pupils equal round. Ears: Symmetric. Hearing within normal limits. Mouth: Clear. Neck: Supple. Carotid without bruit. Cardiac: Regular rate and rhythm. Lungs: Clear anteriorly and posteriorly. Abdomen: Soft active nontender. Extremities: Normal tone. Neurological: Mental status: Alert, cooperative, pleasant. Cranial nerves: Symmetric facial tone and trapezius. Motor: Good active movement all 4 limbs. Sensation: Intact throughout. DTRs: Symmetric and equal throughout. Mobility: Reports independent in room and bathroom. Results CBC & Chem 7: 11/19/16 08:15 11/19/16 08:15 Labs: Abnormal Lab Results - Last 24 Hours (Table) 11/21/16 11/21/16 11/21/16 Range/Units 09:00 11:12 11:30 POC Glucose (mg/dL) 212 H 67 L 100 H (75-99) mg/dL 11/21/16 11/21/16 11/21/16 Range/Units 14:08 14:56 15:57 POC Glucose (mg/dL) 253 H 245 H 211 H (75-99) mg/dL 11/21/16 11/21/16 Range/Units 17:23 21:04 POC Glucose (mg/dL) 189 H 177 H (75-99) mg/dL Chest x-ray: report reviewed (COPD.) Assessment and Plan (1) COPD (chronic obstructive pulmonary disease) Status: Acute (2) Acute exacerbation of chronic obstructive airways disease Status: Acute Plan: Impression: 1. Medical debility. 2. Acute respiratory failure. 3. COPD exacerbation. 4. Asthma. 5. Morbidly obese. Comments and plan: At this time PT and OT as prescribed. Unsure patient's endurance or willingness pursed therapy. We'll follow with yourself. At this time, anticipate need of 24/7 or subacute rehab.
[2016-11-22 07:32] LABS: Glucose,Whole Blood 118 mg/dL (75-99)
[2016-11-22] MEDS: BUDESONIDE 0.5 MG/2 ML NEBU INHALATION SCH ×2 (08:01→21:24)
[2016-11-22] MEDS: IPRATROPIUM-ALBUTEROL 3 ML NEB INHALATION SCH ×4 (08:02→21:24)
[2016-11-22] MEDS: PREGABALIN 100 MG CAP PO SCH ×2 (08:07→21:03)
[2016-11-22] MEDS: POTASSIUM CHLORIDE ER 20 MEQ TAB.ER PO SCH ×2 (08:07→21:03)
[2016-11-22] MEDS: ESCITALOPRAM 10 MG TAB PO SCH (08:07)
[2016-11-22] MEDS: GABAPENTIN 300 MG CAP PO SCH ×2 (08:08→21:03)
[2016-11-22] MEDS: ALLOPURINOL 100 MG TAB PO SCH ×2 (08:08→21:02)
[2016-11-22] MEDS: LISINOPRIL 5 MG TAB PO SCH (08:08)
[2016-11-22] MEDS: INSULIN GLARGINE 100 UNIT/ML 10 ML VIAL SQ SCH (08:08)
[2016-11-22] MEDS: FUROSEMIDE 80 MG TAB PO SCH ×2 (08:08→16:14)
[2016-11-22] MEDS: FAMOTIDINE 20 MG TAB PO SCH (08:08)
[2016-11-22] MEDS: FERROUS SULFATE 325 MG TAB PO SCH (08:08)
[2016-11-22] MEDS: predniSONE 20 MG TAB PO SCH (08:08)
[2016-11-22] MEDS: metFORMIN 500 MG TAB PO SCH ×2 (08:08→16:14)
[2016-11-22] MEDS: METOPROLOL TARTRATE 12.5 MG TAB PO SCH (08:08)
[2016-11-22] MEDS: INSULIN LISPRO (humaLOG) 300 UNIT/3 ML VIAL SQ SCH ×7 (08:09→21:03)
[2016-11-22 08:55] LABS: Basophils % (A) 0 %; CH 29.4; CHCM 31.7; Eosinophils # (A) 0.1 k/uL (0-0.7); Eosinophils % (A) 1 %; HCT 38.7 % (34.0-46.0); HDW 3.02; HGB 12.5 gm/dL (11.4-16.0); Hypochromasia Slight; Luc # (Auto) 0.15; Luc % (Auto) 2; Lymphocytes # (A) 1.4 k/uL (1.0-4.8); Lymphocytes % (A) 20 %; MCHC 32.2 g/dL (31.0-37.0); MCV 93.2 fL (80.0-100.0); Mean Platelet Volume 7.3; Monocytes # (A) 0.5 k/uL (0-1.0); Monocytes % (A) 7 %; Neutrophils # (A) 4.7 k/uL (1.3-7.7); Neutrophils % (A) 69 %; RBC 4.16 m/uL (3.80-5.40); RDW 13.5 % (11.5-15.5); WBC 6.8 k/uL (3.8-10.6); WBC (Perox) 6.98
[2016-11-22 09:11] LABS: Anion Gap 10 mmol/L; Blood Urea Nitrogen 28 mg/dL (7-17); Calcium 9.4 mg/dL (8.4-10.2); Carbon Dioxide 38 mmol/L (22-30); Chloride 94 mmol/L (98-107); Glucose 161 mg/dL (74-99); Non-African American GFR(MDRD) >60 (>60 ml/min/1.73 sqM); Potassium 3.9 mmol/L (3.5-5.1); Sodium 142 mmol/L (137-145)
--- NOTE | 2016-11-22 10:30 | PN ---
DATE OF SERVICE: 11/21/2016 INTERVAL HISTORY: Ms. Sam is a 51-year-old female with a past medical history of morbid obesity, pulmonary hypertension, type 2 diabetes mellitus, hyperlipidemia, hypertension, hypothyroidism, admitted to the hospital with a chief complaint of shortness of breath. The patient has right lower lobe pneumonia and also has poorly controlled diabetes and she is on an insulin drip. Patient also has chronic lower extremity diabetic ulcers. Patient is currently lying in her bed, appears to be no acute distress. She does not have any active complaints. She states that she is too weak to go home and requesting that she wants to go to rehab. REVIEW OF SYSTEMS: CONSTITUTIONAL: Denies any fevers, chills, or rigors. RESPIRATORY: Difficulty in breathing is better. CARDIAC: No chest pain or palpitations. GI: No abdominal pain, nausea, vomiting, or diarrhea. Patient's medications have reviewed. On examination, patient's vital signs temperature 97.8, heart rate 88, respiratory rate 21, blood pressure 102/54, saturating at 93% on 4 L of oxygen via nasal cannula. GENERAL EXAMINATION: Patient is morbidly obese, lying in bed, appears to be in no acute distress. HEAD: Atraumatic, normocephalic, and reactive. No pallor. No icterus. Neck is short. CARDIOVASCULAR: Distant heart sounds heard. RESPIRATORY: Distant breath sounds heard. GI: Abdomen is soft, nontender. Bowel sounds are positive. Organomegaly difficult to appreciate due to huge body habitus. EXTREMITIES: The lower extremities are wrapped in an Jez bandage. I did not open the dressings today. Patient's labs: No new labs from today. ASSESSMENT AND PLAN: 1. Acute right upper lobe pneumonia. 2. Acute on chronic hypoxic and hypercapnic respiratory failure. 3. Pulmonary hypertension, cor pulmonale. 4. Left-sided pulmonary nodules. 5. Type 2 diabetes mellitus, poorly controlled on insulin drip. 6. Hyperlipidemia. 7. Hypertension. 8. Hypothyroidism. 9. Right lower lobe diabetic foot ulcers, currently getting wound care. 10. Morbid obesity with body mass index of 56.1. PLAN: The plan is to continue the patient on systemic steroids, antibiotics and breathing treatments. Will try to wean the patient off insulin drip. Continue with CPAP at night-time. Pulmonary and ID on board and following the patient and further recommendations to follow depending on the progress of the patient. barn worker to discuss the possibility of placing the patient in a rehab center. TOSIN
--- NOTE | 2016-11-22 11:29 | PN ---
DATE OF SERVICE: 11/21/2016. She has been hemodynamically stable. She is less short of breath and is almost back to baseline. On physical examination, her blood pressure 102/54, respiratory rate 21, pulse of 88, temperature 97.8, O2 sat on 4 liters by nasal cannula is 93%. HEENT is unremarkable. Chest reveals decreased breath sounds at the bases. No clear wheeze today. Cardiovascular S1 and S2. ABDOMEN: Soft. There is no edema. IMPRESSION: 1. Asthma with chronic obstructive pulmonary disease with acute exacerbation. 2. Obesity with sleep apnea. 3. Recent lung cancer that was treated with radiation. 4. Diabetic foot ulcers. Increase her activity level. Continue on her current medications, which were reviewed. Her prognosis fair.
[2016-11-22] MEDS ORDERED: predniSONE 20 MG TAB PO SCH (11:33)
--- NOTE | 2016-11-22 11:34 | P.PN ---
Subjective Principal diagnosis: AECOPD Patient seen and examined. Patient states her breathing is better. She states her lower extremity wound is improving as well. She states that she is hoping to go to rehab soon. Objective - Vital Signs Vital signs: Vital Signs Temp 96.7 F L 11/22/16 07:00 Pulse 88 11/22/16 08:20 Resp 18 11/22/16 07:00 BP 111/65 11/22/16 07:00 Pulse Ox 94 L 11/22/16 07:00 Intake & Output 11/21/16 11/22/16 11/22/16 18:59 06:59 18:59 Intake Total 32.308 Balance 32.308 Weight 174 kg Intake: Intake, IV Titration 32.308 Amount Insulin Regular 100 unit 32.308 In Sodium Chloride 0.9% 100 ml @ Titrate IV .Q0M [facility] Rx#:[id number] Other: # Voids 3 2 - Exam Gen.: Patient is alert and oriented 3, no acute distress, morbidly obese Cardiovascular: Regular rate and rhythm, S1/S2 Lungs: Diminished breath sounds bilaterally Abdomen: Soft nontender nondistended positive bowel sounds Extremities: 3+ pitting edema with open wounds on her right lower extremity - Labs CBC & Chem 7: 11/22/16 08:27 11/22/16 08:27 Labs: Abnormal Lab Results - Last 24 Hours (Table) 11/21/16 11/21/16 11/21/16 Range/Units 11:12 11:30 14:08 Chloride (98-107) mmol/L Carbon Dioxide (22-30) mmol/L BUN (7-17) mg/dL Glucose (74-99) mg/dL POC Glucose (mg/dL) 67 L 100 H 253 H (75-99) mg/dL 11/21/16 11/21/16 11/21/16 Range/Units 14:56 15:57 17:23 Chloride (98-107) mmol/L Carbon Dioxide (22-30) mmol/L BUN (7-17) mg/dL Glucose (74-99) mg/dL POC Glucose (mg/dL) 245 H 211 H 189 H (75-99) mg/dL 11/21/16 11/22/16 11/22/16 Range/Units 21:04 07:29 08:27 Chloride 94 L (98-107) mmol/L Carbon Dioxide 38 H (22-30) mmol/L BUN 28 H (7-17) mg/dL Glucose 161 H (74-99) mg/dL POC Glucose (mg/dL) 177 H 118 H (75-99) mg/dL Assessment and Plan Plan: Chronic hypoxic and hypercapnic respiratory failure Right upper lobe pneumonia Acute exacerbation of COPD and asthma, severe persistent Pulmonary hypertension and cor pulmonale Morbid obesity LINDA/OHS, now on CPAP Left lung nodule treated with radiation, PET positive Diabetes mellitus type 2 uncontrolled with diabetic neuropathy, with hyperglycemia Dyslipidemia Hypertension Hypothyroidism Right lower extremity diabetic wounds O2 to maintain saturation greater than equal to 88% Pulmicort and duo nebs Singulair Antibiotics per ID Steroid taper Patient encouraged to wear CPAP nightly Fluid restrictions, I/O, daily weight Diuresis as able PT and OT GI and DVT prophylaxis Incentive spirometry and pulmonary hygiene Plan for possible discharge to rehab soon
[2016-11-22 11:35] LABS: Glucose,Whole Blood 57 mg/dL (75-99)
[2016-11-22 12:07] LABS: Glucose,Whole Blood 80 mg/dL (75-99)
[2016-11-22 12:24] LABS: Hemoglobin A1C 9.5 % (4.2-6.1)
[2016-11-22 12:58] VITALS: BMI 56.6
[2016-11-22 13:52] LABS: Glucose,Whole Blood 197 mg/dL (75-99)
[2016-11-22 16:57] LABS: Glucose,Whole Blood 241 mg/dL (75-99)
--- NOTE | 2016-11-22 19:36 | PN ---
DATE OF SERVICE: 11/22/2016. INTERVAL HISTORY: Ms. Sam is a 51-year-old morbidly obese female with past medical history of pulmonary hypertension, Type 2 diabetes mellitus, hypertension, hyperlipidemia, hypothyroidism, admitted to the hospital with a chief complaint of difficulty in breathing. The patient has right lower lobe pneumonia and also has poorly controlled diabetes mellitus and she was on an insulin drip. Patient also has chronic lower extremity diverticulosis. She is getting wound care for her ulcer. The patient is lying in bed, appears to be no acute distress. She does not have any active complaints. Dr. Mcnally from Rehab has evaluated the patient and recommended subacute rehab, so the addiction social worker and gearcase assembler are aware of the situation and trying to find a place for her to go. REVIEW OF SYSTEMS: CONSTITUTIONAL: Denies having fevers, chills or rigors. RESPIRATORY: Difficulty in breathing is better. CARDIAC: No chest pain or palpitations. GI: No abdominal pain, nausea, vomiting, or diarrhea. Patient's medications have been reviewed. On examination, patient's vital signs, temperature is 96.7, heart rate 80, respiratory rate 18, blood pressure 111/65, saturating at 94% on 4 liters of nasal cannula. GENERAL EXAMINATION: Patient is morbidly obese, lying in bed, appears to be in no acute distress. HEAD: Atraumatic, normocephalic. EYES: Pupils round and reactive to alert. Neck is short. CARDIOVASCULAR: Distant heart sounds heard. RESPIRATORY: Distant breath sounds heard. GI: Abdomen is soft, nontender. Bowel sounds positive. EXTREMITIES: The patient's lower extremities shows chronic venous changes. Right lower extremity is wrapped in an Jez bandage. I did not open the dressing today. Patient's labs: No new labs from this morning. ASSESSMENT AND PLAN: 1. Right upper lobe pneumonia. 2. Acute on chronic hypoxic and hypercapnic respiratory failure. 3. Pulmonary hypertension cor pulmonale. 4. Left-sided pulmonary nodule. 5. Type 2 diabetes mellitus, poorly controlled. 6. Hypertension. 7. Hyperlipidemia. 8. Hypothyroidism. 9. Right lower extremity diabetic foot ulcer. 10. Morbid obesity with body mass index of 56.1. PLAN: The plan is to continue the patient on systemic steroids, antibiotics, breathing treatments. The patient has been off insulin drip since yesterday. Currently he has been getting 120 units of Lantus q.h.s. with 30 units of Lispro 3 times a day with moderate sliding scale of insulin. She is on Levaquin for her pneumonia. Continue with CPAP at night. sawmill worker and gearcase assembler are aware of the situation that the patient needs to go to a Rehab Center. Further recommendations to follow depending on the progress of the patient.
[2016-11-22 20:56] LABS: Glucose,Whole Blood 157 mg/dL (75-99)
[2016-11-22] MEDS: ATORVASTATIN 20 MG TAB PO SCH (21:02)
[2016-11-22] MEDS: LEVOFLOXACIN 500 MG TAB PO SCH (21:03)
[2016-11-22] MEDS: MONTELUKAST 10 MG TAB PO SCH (21:03)
--- NOTE | 2016-11-22 21:57 | PN ---
DATE OF SERVICE: 11/22/2016 REASON FOR FOLLOWUP: Right lower extremity wound and question of pneumonia. INTERVAL HISTORY: The patient is afebrile. Her breathing has slightly improved. The patient denies significant chest pain. Occasional cough. No abdominal pain or any pain in her leg area. On examination, blood pressure is 119/56, pulse of 79, temperature 97. General description is a middle-aged female up in the bed in no distress. RESPIRATORY SYSTEM: Unlabored breathing. Clear to auscultation anteriorly. HEART: S1, S2. Regular rate and rhythm. ABDOMEN: Soft. No tenderness. Right leg swelling persists. The overall redness has improved. The wound has decreased in size. No slough tissue. LABS: Hemoglobin is 12.5, white count 6.8 with a BUN of 28, creatinine 0.91. DIAGNOSTIC IMPRESSION AND PLAN: 1. Patient with right lower extremity wound, likely from a ruptured blister. Advise Aquacel Silver and Jez wrap to keep the swelling down. 2. Patient with shortness of breath more likely secondary to underlying COPD exacerbation . Clinically doubt significant pneumonia. Antibiotic may be safely discontinued. MTDD
[2016-11-22 23:25] VITALS: RESP 20
[2016-11-23 07:35] LABS: Glucose,Whole Blood 95 mg/dL (75-99)
[2016-11-23] MEDS: METOPROLOL TARTRATE 12.5 MG TAB PO SCH (08:17)
[2016-11-23] MEDS: POTASSIUM CHLORIDE ER 20 MEQ TAB.ER PO SCH (08:18)
[2016-11-23] MEDS: metFORMIN 500 MG TAB PO SCH (08:18)
[2016-11-23] MEDS: IPRATROPIUM-ALBUTEROL 3 ML NEB INHALATION SCH ×3 (08:18→16:31)
[2016-11-23] MEDS: ALLOPURINOL 100 MG TAB PO SCH (08:18)
[2016-11-23] MEDS: ESCITALOPRAM 10 MG TAB PO SCH (08:18)
[2016-11-23] MEDS: FAMOTIDINE 20 MG TAB PO SCH (08:18)
[2016-11-23] MEDS: INSULIN GLARGINE 100 UNIT/ML 10 ML VIAL SQ SCH (08:18)
[2016-11-23] MEDS: BUDESONIDE 0.5 MG/2 ML NEBU INHALATION SCH (08:18)
[2016-11-23] MEDS: FERROUS SULFATE 325 MG TAB PO SCH (08:18)
[2016-11-23] MEDS: GABAPENTIN 300 MG CAP PO SCH (08:18)
[2016-11-23] MEDS: PREGABALIN 100 MG CAP PO SCH (08:18)
[2016-11-23] MEDS: FUROSEMIDE 80 MG TAB PO SCH ×2 (08:18→16:32)
[2016-11-23] MEDS: LISINOPRIL 5 MG TAB PO SCH (08:19)
[2016-11-23] MEDS: INSULIN LISPRO (humaLOG) 300 UNIT/3 ML VIAL SQ SCH ×4 (08:19→13:06)
[2016-11-23] MEDS: guaiFENesin-Coden 100-10MG/5ML 10 ML CUP PO PRN (08:30)
[2016-11-23 11:11] LABS: Glucose,Whole Blood 83 mg/dL (75-99)
--- NOTE | 2016-11-23 14:07 | P.DS ---
Providers Date of admission: 11/17/16 00:19 Attending physician: Colt Rudd Consults: 11/17/16 13:16 Consult Physician Routine Consulting Provider: Anibal Manzano Consult Reason/Comments: diabetic ulcers, pneumonia Do you want consulting provider notified?: Yes 11/20/16 15:11 Consult Physician Routine Consulting Provider: Manny Mcnally Consult Reason/Comments: medical debility Do you want consulting provider notified?: Yes [facility] care physician[facility] [place] Course: This is a 51-year-old female with morbid obesity, chronic hypoxic respiratory failure, COPD comes in the hospital with complaints of difficulty breathing. Patient apparently was admitted to the hospital with a COPD exacerbation. Patient was noted to be on prednisone and her glucose levels were not well- controlled. On the chest x-ray there is some concern for right lower lobe pneumonia. Patient was treated with Levaquin and Augmentin prior to admission. Patient has been admitted to the hospital multiple times secondary to COPD exacerbations. Patient was living with her roommate states that she has a lot of allergens that does make her symptoms worse. Due to inability to complete her own ADLs consult for Dr. Foss was placed recommended a subacute rehab on discharge. On the day of discharge her physical exam Lungs air movement is noted no rhonchi wheezing or crackles appreciated Abdomen is soft nontender organomegaly Lower extremities are currently wrapped appears to have had a previous blister, no concern for cellulitis Discharge diagnosis Acute on chronic hypoxic hypercapnic respiratory failure secondary to an acute exacerbation of COPD Severe pulmonary hypertension secondary to morbid obesity and COPD Type 2 diabetes Large left-sided pulmonary nodule which needs to be followed up Morbid obesity Objective sleep apnea Right ext diabetic foot ulcer Hypothyroidism Hypertension Patient will be discharged on 60 mg of by mouth prednisone to continue for 5 days. Patient is to follow-up with Dr. Abbe Avila in 3 days and do recommend the patient to follow-up in order for her to get a taper at that time Plan - Discharge Summary New Discharge Prescriptions: Budesonide [Pulmicort] 0.5 mg INHALATION RT-BID #1 nebu predniSONE 60 mg PO DAILY #7 tab Discharge Medication List Famotidine [Pepcid] 20 mg PO DAILY 08/19/14 [History] Loratadine 10 mg PO DAILY PRN 08/19/14 [History] Ferrous Sulfate [Iron (65 MG Elemental)] 325 mg PO DAILY 08/20/14 [History] Nitroglycerin Sl Tabs [Nitrostat] 0.4 mg SUBLINGUAL Q5M PRN 08/20/14 [History] metFORMIN HCL 1,000 mg PO BID 08/20/14 [History] Lisinopril [Zestril] 5 mg PO DAILY 03/13/15 [History] Gabapentin [Neurontin] 300 mg PO BID 03/15/16 [History] Simvastatin [Zocor] 40 mg PO HS 03/15/16 [History] Febuxostat [Uloric] 80 mg PO DAILY 05/04/16 [History] traMADol HCl [Ultram] 50 mg PO QID PRN #0 tab 05/06/16 [Rx] Potassium Chloride ER [K-Dur 20] 20 meq PO BID tab.er.prt 05/25/16 [Rx] Insulin Glargine [Lantus] 120 unit SQ DAILY@0900 06/08/16 [History] Pregabalin [Lyrica] 100 mg PO BID 06/08/16 [History] Metoprolol Tartrate [Lopressor] 12.5 mg PO DAILY 07/18/16 [History] Montelukast [Singulair] 10 mg PO HS 07/18/16 [History] Albuterol Inhaler [Ventolin Hfa Inhaler] 1 - 2 puff INHALATION RT-Q6H PRN [History] Escitalopram [Lexapro] 10 mg PO DAILY #30 tab 10/13/16 [Rx] Sodium Chloride 0.65% Nasal [Deep Sea (Saline)] 2 spray NASAL QID PRN #0 spray 10/13/16 [Rx] Ipratropium-Albuterol Nebulize [Duoneb 0.5 mg-3 mg/3 ml Soln] 3 ml INHALATION RT -QID 10/29/16 [History] Buta/APAP/Caf/Cod [id number] [Fioricet w/Cod [id number]] 1 cap PO Q4H PRN 11/16/16 [History] Fluticasone/Vilanterol [Breo Ellipta 100-25 Mcg Inhaler] 1 puff INHALATION RT- DAILY 11/16/16 [History] Furosemide [Lasix] 80 mg PO BID 11/16/16 [History] INSULIN LISPRO (humaLOG) [humaLOG (formulary)] 10 unit SQ AC-TID 11/16/16 [ History] Budesonide [Pulmicort] 0.5 mg INHALATION RT-BID #1 nebu 11/23/16 [Rx] predniSONE 60 mg PO DAILY #7 tab 11/23/16 [Rx] Follow up Appointment(s)/Referral(s): Herrera Dimas DO [Primary Care Provider] - 1 Week Zeyad Avila MD [STAFF PHYSICIAN] - 3 Days Patient Instructions/Handouts: Heart Failure (DC), Type 2 Diabetes in Adults ( DC) Activity/Diet/Wound Care/Special Instructions: And wrap the lower extremities. And dressing with Aquasol prior to wrapping. Discharge Disposition: TRANSFER TO SNF/ECF
[2016-11-23 16:59] VITALS: BP 109/58; PULSE 94; TEMP 97.3
--- NOTE | 2016-11-23 17:19 | PN ---
DATE OF SERVICE: 11/23/2016 This patient is hemodynamically stable. She is at her baseline as far as shortness of breath goes. On physical examination, respiratory rate is 20, pulse rate of 89, temperature 96.6, blood pressure 18/63. Oxygen saturation on 4 L by nasal cannula is 93%. HEENT is unremarkable. Chest is clear. Cardiovascular system reveals an S1, S2. Abdomen is soft. There is 1+ edema. IMPRESSION AT THIS TIME: 1. Severe chronic obstructive pulmonary disease and asthma with acute exacerbation. 2. Obstructive sleep apnea. 3. Cor pulmonale. 4. Congestive heart failure. Increase her activity level. Agree with possible discharge planning. Continue on her current medications, which were reviewed.
--- NOTE | 2016-11-23 19:54 | PN ---
DATE OF SERVICE: 11/23/2016 REASON FOR FOLLOWUP: 1. Pneumonia. 2. Right leg wound. INTERVAL HISTORY: The patient is afebrile. Her breathing has improved. The patient denies any significant chest pain. Occasional cough. No abdominal pain. Denies any worsening pain in the right leg area. The dressing was changed this morning. Overall wound looks healthy. On examination, blood pressure is 108/63 with a pulse of 89, temperature 96.6. She is 93% on 4 L nasal cannula. General description is a middle-aged female up in the bed in no distress. RESPIRATORY SYSTEM: Unlabored breathing. Clear to auscultation anteriorly. HEART: S1, S2. Regular rate and rhythm. ABDOMEN: Soft. No tenderness. RIGHT LEG: Currently dressed up. No obvious drainage on the dressing. LABS: No new labs have been obtained today. Sputum is so far pending. DIAGNOSTIC IMPRESSION AND PLAN: 1. Patient with right lower extremity wound with no evidence of any cellulitis, likely from fluid overload and blister rupture. Continue Aquacel Silver dressing and Jez wrap to keep the swelling down. 2. Patient with possible chronic obstructive pulmonary disease exacerbation triggered by bronchitis, question of pneumonia. Currently on Levaquin. Waiting for the sputum culture to finalize. Continue supportive care.
== END 2016-11-23 17:20 | DRG 189 ==
LOC: EC 20:31 → 4MS4W 11-17 00:19
PROVIDERS: ADMIT Internal Medicine; ATTEND Internal Medicine
DX: J96.21 Acute and chronic respiratory failure with hypoxia (principal); J18.9 Pneumonia, unspecified organism; J44.0 Chronic obstructive pulmonary disease with (acute) lower respiratory infection; J45.51 Severe persistent asthma with (acute) exacerbation; E66.2 Morbid (severe) obesity with alveolar hypoventilation; L97.819 Non-pressure chronic ulcer of other part of right lower leg with unspecified severity; J44.1 Chronic obstructive pulmonary disease with (acute) exacerbation; I11.0 Hypertensive heart disease with heart failure; E11.40 Type 2 diabetes mellitus with diabetic neuropathy, unspecified; E11.622 Type 2 diabetes mellitus with other skin ulcer; I50.9 Heart failure, unspecified; J96.22 Acute and chronic respiratory failure with hypercapnia; I27.2 Other secondary pulmonary hypertension; E03.9 Hypothyroidism, unspecified; E11.65 Type 2 diabetes mellitus with hyperglycemia; E78.5 Hyperlipidemia, unspecified; I27.81 Cor pulmonale (chronic); M10.9 Gout, unspecified; M19.90 Unspecified osteoarthritis, unspecified site; R91.1 Solitary pulmonary nodule; F40.240 Claustrophobia; Z68.43 Body mass index [BMI] 50.0-59.9, adult; Z79.4 Long term (current) use of insulin; Z79.899 Other long term (current) drug therapy; Z87.891 Personal history of nicotine dependence; Z91.19 Patient's noncompliance with other medical treatment and regimen; Z91.11 Patient's noncompliance with dietary regimen; Z99.81 Dependence on supplemental oxygen; Z82.49 Family history of ischemic heart disease and other diseases of the circulatory system
CPT/HCPCS: 36415; 36600; 71020; 71275; 80048; 80053; 82550; 82553; 82805; 83036; 83880; 84484; 85025; 85027; 85379; 85610; 85730; 87070; 87205; 93005; 94640; 94760; 96365; 96366; 96375; 99291

== ENCOUNTER 2017-09-30 23:42 | Inpatient (IN) | payer MEDICARE ==
[2017-10-01 00:13] LABS: Glucose,Whole Blood 362 mg/dL (75-99)
[2017-10-01 00:26] LABS: ALT 48 U/L (9-52); AST 18 U/L (14-36); Albumin 3.4 g/dL (3.5-5.0); Alkaline Phosphatase 62 U/L (38-126); Blood Urea Nitrogen 31 mg/dL (7-17); Calcium 9.1 mg/dL (8.4-10.2); Chloride 91 mmol/L (98-107); Glucose 374 mg/dL (74-99); Magnesium 1.7 mg/dL (1.6-2.3); Potassium 4.6 mmol/L (3.5-5.1); Sodium 140 mmol/L (137-145); Total Bilirubin 0.4 mg/dL (0.2-1.3)
[2017-10-01 00:32] LABS: Anion Gap 7 mmol/L
[2017-10-01 00:37] LABS: Carbon Dioxide 42 mmol/L (22-30)
--- NOTE | 2017-10-01 00:45 | ED ---
SOB HPI - General Chief Complaint: Shortness of Breath Stated Complaint: SOB/Hypoglycemia Time Seen by Provider: 09/30/17 23:42 Source: patient, EMS, RN notes reviewed, old records reviewed Mode of arrival: EMS Limitations: no limitations - History of Present Illness Initial Comments: This is a 52-year-old female who was transferred from [facility] after presenting there with shortness of breath. She has recently been in the hospital for dyspnea she was recently discharged from this hospital. She was found to be dyspneic requiring respiratory assistance updraft treatments and BiPAP. She was transferred here for further evaluation. He denies any chest pain she states she is feeling somewhat better but she is still dyspneic MD Complaint: shortness of breath - Related Data Home Medications Medication Instructions Recorded Confirmed Loratadine 10 mg PO DAILY PRN 08/19/14 07/17/17 Nitroglycerin Sl Tabs [Nitrostat] 0.4 mg SUBLINGUAL Q5M PRN 08/20/14 07/17/17 Simvastatin [Zocor] 40 mg PO HS 03/15/16 07/17/17 Febuxostat [Uloric] 80 mg PO DAILY 05/04/16 07/17/17 Montelukast [Singulair] 10 mg PO HS 07/18/16 07/17/17 Acetaminophen Tab [Tylenol] 650 mg PO Q6H PRN 07/09/17 07/17/17 Magnesium Oxide 400 mg PO TID 07/09/17 07/17/17 Orphenadrine Citrate 100 mg PO BID 07/09/17 07/17/17 guaiFENesin [Mucinex] 600 mg PO Q12H 07/09/17 07/17/17 Previous Rx's Medication Instructions Recorded Escitalopram [Lexapro] 10 mg PO DAILY #30 tab 10/13/16 Budesonide [Pulmicort] 0.5 mg INHALATION RT-BID #1 nebu 11/23/16 Gabapentin [Neurontin] 300 mg PO BID #30 cap 11/23/16 Ferrous Sulfate [Iron (65 MG 325 mg PO DAILY #30 tab 07/12/17 Elemental)] Metoprolol Tartrate [Lopressor] 12.5 mg PO DAILY #0 07/12/17 SILVER sulfADIAZINE Cream 1 applic TOPICAL DAILY #50 gram 07/12/17 [Silvadene 1% Cream] Furosemide [Lasix] 80 mg PO BID@0700,1300 #0 07/22/17 INSULIN LISPRO (HumaLOG) [humaLOG] 0 unit SQ ACHS #1 vial 07/22/17 Insulin Aspart [NovoLOG 25 unit SQ AC-TID vial 07/22/17 (formulary)] Insulin Glargine [Lantus] 130 unit SQ HS #0 07/22/17 Ipratropium-Albuterol Nebulize 3 ml INHALATION Q4H PRN ampul.neb 07/22/17 [Duoneb 0.5 mg-3 mg/3 ml Soln] Ipratropium-Albuterol Nebulize 3 ml INHALATION RT-QID ampul.neb 07/22/17 [Duoneb 0.5 mg-3 mg/3 ml Soln] Metolazone [Zaroxolyn] 5 mg PO DAILY #0 07/22/17 Pantoprazole [Protonix] 40 mg PO DAILY tablet. 07/22/17 Potassium Chloride [K-Tab ER] 20 meq PO DAILY #30 tablet.er 07/22/17 Pregabalin [Lyrica] 150 mg PO BID@0800,2000 #10 capsule 07/22/17 acetaZOLAMIDE [Diamox] 250 mg PO BID #1 tab 07/22/17 medroxyPROGESTERone [Provera] 20 mg PO TID tab 07/22/17 predniSONE 10 mg PO DIRECTED #12 tab 07/22/17 predniSONE 10 mg PO TID #0 07/22/17 traMADol HCl [Ultram] 50 mg PO Q12H PRN #10 tab 07/22/17 Allergies Allergy/AdvReac Type Severity Reaction Status Date / Time No Known Allergies Allergy Verified 09/30/17 23:52 Review of Systems ROS Statement: Those systems with pertinent positive or pertinent negative responses have been documented in the HPI. ROS Other: All systems not noted in ROS Statement are negative. Past Medical History Past Medical History: Asthma, Chest Pain / Angina, Heart Failure, COPD, Diabetes Mellitus, Hyperlipidemia, Hypertension, Neurologic Disorder, Osteoarthritis (OA), Pneumonia, Respiratory Disorder, Sleep Apnea/CPAP/BIPAP, Syncope, Thyroid Disorder Additional Past Medical History / Comment(s): GOUT, NEUROPATHY-FEET, sleep apnea but won't wear cpap, has home 02 4 liters n/c atc, past resp failure, hypothyroid,,lt lower lobe nodule-radiation therapy(,unsuccesful bx) History of Any Multi-Drug Resistant Organisms: None Reported Past Surgical History: Section Additional Past Surgical History / Comment(s): LT CARPAL TUNNEL, 3 unsuccessful attempts at lt lobe bx Past Anesthesia/Blood Transfusion Reactions: No Reported Reaction Additional Past Anesthesia/Blood Transfusion Reaction / Comment(s): CLAUSTERPHOBIA Past Psychological History: No Psychological Hx Reported Smoking Status: Former smoker Past Alcohol Use History: None Reported Past Drug Use History: None Reported - Past Family History Father Family Medical History: COPD, Diabetes Mellitus Mother History Unknown: Yes Family Medical History: No Reported History Additional Family Medical History / Comment(s): AT AGE 43 FROM SUICIDE General Exam - General Exam Comments Initial Comments: Is a well-developed morbidly obese female who does appear somewhat dyspneic with exertion. Limitations: no limitations General appearance: alert, anxious Head exam: Present: atraumatic, normocephalic, normal inspection Eye exam: Present: normal appearance, PERRL, EOMI. Absent: scleral icterus, conjunctival injection, periorbital swelling ENT exam: Present: normal exam, mucous membranes moist Neck exam: Present: normal inspection. Absent: tenderness, meningismus, lymphadenopathy Respiratory exam: Present: wheezes, decreased breath sounds Cardiovascular Exam: Present: regular rate, normal rhythm, normal heart sounds. Absent: systolic murmur, diastolic murmur, rubs, gallop, clicks GI/Abdominal exam: Present: soft, normal bowel sounds, other (Obese abdomen). Absent: distended, tenderness, guarding, rebound, rigid Extremities exam: Present: full ROM, normal capillary refill, other (Evidence of erythema seen anterior legs bilaterally stasis changes are noted. No increased localized temperature.). Absent: tenderness, pedal edema, joint swelling, calf tenderness Back exam: Present: normal inspection Neurological exam: Present: alert, oriented X3, CN II-XII intact Psychiatric exam: Present: anxious Skin exam: Present: warm, dry, intact, normal color. Absent: rash Course Vital Signs 09/30/17 23:45 Temperature 99 F Pulse Rate 89 Respiratory 20 Rate Blood Pressure 112/58 O2 Sat by Pulse 90 L Oximetry - Reevaluation(s) Reevaluation #1: 10/01/17 00:43 I did review the charting from the sending facility. Medical Decision Making - Medical Decision Making I did review the imaging presented from the other facility no definite evidence of infiltrate. Patient will be admitted with consultation by pulmonary medicine. - Lab Data Result diagrams: 10/01/17 00:03 Lab Results 09/30/17 10/01/17 Range/Units 23:59 00:03 Sodium 140 (137-145) mmol/L Potassium 4.6 (3.5-5.1) mmol/L Chloride 91 L (98-107) mmol/L Carbon Dioxide 42 H* (22-30) mmol/L Anion Gap 7 mmol/L BUN 31 H (7-17) mg/dL Creatinine 0.80 (0.52-1.04) mg/dL Est GFR (MDRD) Af Amer >60 (>60 ml/min/1.73 sqM) Est GFR (MDRD) Non-Af >60 (>60 ml/min/1.73 sqM) Glucose 374 H (74-99) mg/dL POC Glucose (mg/dL) 362 H (75-99) mg/dL POC Glu Certified [employer] Inspector ID [place] Raza Calcium 9.1 (8.4-10.2) mg/dL Magnesium 1.7 (1.6-2.3) mg/dL Total Bilirubin 0.4 (0.2-1.3) mg/dL AST 18 (14-36) U/L ALT 48 (9-52) U/L Alkaline Phosphatase 62 (38-126) U/L Total Protein 6.0 L (6.3-8.2) g/dL Albumin 3.4 L (3.5-5.0) g/dL Acetone, Qual Negative (Negative) Disposition Clinical Impression: Acute exacerbation of chronic obstructive airways disease, Acute hyperglycemia , Failure of outpatient treatment Disposition: ADMITTED IP TO THIS [facility] Condition: Stable Referrals: Nonstaff,Physician [Primary Care Provider] - 1-2 days
[2017-10-01] MEDS ORDERED: ACETAMINOPHEN TAB 325 MG TAB PO PRN (00:48)
[2017-10-01] MEDS ORDERED: NITROGLYCERIN SL TABS 0.4 MG TAB SUBLINGUAL PRN (00:48)
[2017-10-01] MEDS: SODIUM CHLORIDE 0.9% 1,000 ML IV SCH ×2 (03:14→14:52)
[2017-10-01] MEDS ORDERED: IPRATROPIUM-ALBUTEROL 3 ML NEB INHALATION SCH (04:00)
[2017-10-01] MEDS: BENZOCAINE/MENTHOL LOZENG 1 EACH LOZENGE MUCOUS MEM PRN ×3 (04:05→22:36)
[2017-10-01 07:30] VITALS: BMI 54.6
[2017-10-01 07:58] LABS: Glucose,Whole Blood 346 mg/dL (75-99)
[2017-10-01] MEDS: IPRATROPIUM-ALBUTEROL 3 ML NEB INHALATION SCH ×5 (08:12→19:54)
[2017-10-01] MEDS: INSULIN ASPART 100 UNIT/ML 1 ML 10 ML VIAL SQ SCH ×3 (08:29→17:29)
[2017-10-01] MEDS: methylPREDNISolone SOD SUCCI 125 MG/2 ML VIAL IV SCH ×2 (08:30→12:48)
[2017-10-01] MEDS: acetaZOLAMIDE 250 MG TAB PO SCH ×2 (08:31→22:37)
[2017-10-01] MEDS: METOLAZONE 5 MG TAB PO SCH (08:31)
[2017-10-01] MEDS: GABAPENTIN 300 MG CAP PO SCH ×2 (08:31→22:37)
[2017-10-01] MEDS: FUROSEMIDE 80 MG TAB PO SCH ×2 (08:32→15:09)
[2017-10-01 11:47] LABS: Glucose,Whole Blood 388 mg/dL (75-99)
[2017-10-01] MEDS: HEPARIN SODIUM,PORCINE 5,000 UNIT/ML 1 ML VIAL SQ SCH ×2 (12:00→17:29)
[2017-10-01] MEDS: METOPROLOL TARTRATE 12.5 MG TAB PO SCH (12:48)
--- NOTE | 2017-10-01 14:32 | P.CNPUL ---
History of Present Illness Consult date: 10/01/17 Requesting physician: Zhen Apple Reason for consult: dyspnea Chief complaint: Tightness in the throat, shortness of breath History of present illness: This is a very pleasant 52-year-old female patient who follows with Dr. Dimas as her primary care physician. She has history of diabetes mellitus, neuropathy, hyperlipidemia, hypertension, osteoarthritis, hypothyroidism, morbid obesity. She also has a history of hypoxic and hypercapnic respiratory failure, chronic obstructive pulmonary disease, remote smoking history, obstructive sleep apnea and follows with Dr. Christianson in our office for the same. She has a CPAP as well as a BiPAP now at home. She has supplemental oxygen. She has nebulized treatments and she utilizes Breo and Singulair. She has had multiple admissions for COPD exacerbations most recently discharged from [facility]. She presented here again yesterday from [facility] with complaints of tightness in the throat and shortness of breath. Chest x-ray from there did not reveal any acute pulmonary process. She was admitted for another COPD exacerbation. She is seen today in consultation on the regular medical floor. She is awake and alert in no acute distress she is resting quite comfortably in bed. She is laying flat. She is maintaining good O2 saturations in the mid 90s on 4 L/m per nasal cannula. She' s afebrile. Hemodynamically stable. Bicarb 42. Creatinine 0.80. Blood glucose readings have been in the 300s. Acetone is negative. Review of Systems Constitutional: Reports daytime sleepiness, Reports malaise, Reports weight gain Eyes: denies blurred vision, denies decreased vision Ears: deny: decreased hearing Ears, nose, mouth and throat: Reports sore throat Cardiovascular: Denies chest pain, Denies shortness of breath Respiratory: Reports cough, Reports dyspnea, Reports home oxygen, Reports sleep apnea Gastrointestinal: Denies abdominal pain, Denies diarrhea, Denies nausea, Denies vomiting Genitourinary: Denies dysuria, Denies hematuria Musculoskeletal: Reports limitation of motion, Reports muscle weakness Integumentary: Denies pruritus, Denies rash Neurological: Denies numbness, Denies weakness Psychiatric: Denies anxiety, Denies depression Endocrine: Reports high blood sugars Hematologic/Lymphatic: Reports as per HPI Allergic/Immunologic: Reports as per HPI Past Medical History Past Medical History: Asthma, Chest Pain / Angina, Heart Failure, COPD, Diabetes Mellitus, Hyperlipidemia, Hypertension, Neurologic Disorder, Osteoarthritis (OA), Pneumonia, Respiratory Disorder, Sleep Apnea/CPAP/BIPAP, Syncope, Thyroid Disorder Additional Past Medical History / Comment(s): GOUT, NEUROPATHY-FEET, sleep apnea but cpap not working, has home 02 4 liters n/c atc, past resp failure, hypothyroid,,lt lower lobe nodule-radiation therapy(,unsuccesful bx) History of Any Multi-Drug Resistant Organisms: None Reported Past Surgical History: Section Additional Past Surgical History / Comment(s): LT CARPAL TUNNEL, 3 unsuccessful attempts at lt lobe bx Past Anesthesia/Blood Transfusion Reactions: No Reported Reaction Additional Past Anesthesia/Blood Transfusion Reaction / Comment(s): CLAUSTERPHOBIA Past Psychological History: No Psychological Hx Reported Additional Psychological History / Comment(s): Receiving home care services Smoking Status: Former smoker Past Alcohol Use History: None Reported Additional Past Alcohol Use History / Comment(s): STARTED SMOKING 1975-STOPPED 2007 Past Drug Use History: None Reported - Past Family History Father Family Medical History: COPD, Diabetes Mellitus Mother History Unknown: Yes Family Medical History: No Reported History Additional Family Medical History / Comment(s): AT AGE 43 FROM SUICIDE Medications and Allergies Home Medications Medication Instructions Recorded Confirmed Type Nitroglycerin Sl Tabs [Nitrostat] 0.4 mg SUBLINGUAL Q5M PRN 08/20/14 10/01/17 History Febuxostat [Uloric] 80 mg PO DAILY 05/04/16 10/01/17 History Montelukast [Singulair] 10 mg PO HS 07/18/16 10/01/17 History Budesonide [Pulmicort] 0.5 mg INHALATION RT-BID #1 nebu 11/23/16 10/01/17 Rx Gabapentin [Neurontin] 300 mg PO BID #30 cap 11/23/16 10/01/17 Rx Orphenadrine Citrate 100 mg PO BID 07/09/17 10/01/17 History Ferrous Sulfate [Iron (65 MG 325 mg PO DAILY #30 tab 07/12/17 10/01/17 Rx Elemental)] Metolazone [Zaroxolyn] 5 mg PO DAILY #0 07/22/17 10/01/17 Rx traMADol HCl [Ultram] 50 mg PO Q12H PRN #10 tab 07/22/17 10/01/17 Rx Aspirin 81 mg PO DAILY 10/01/17 10/01/17 History Escitalopram [Lexapro] 10 mg PO HS 10/01/17 10/01/17 History Famotidine [Pepcid] 20 mg PO DAILY 10/01/17 10/01/17 History Furosemide [Lasix] 40 mg PO TID@0700,1300,1700 10/01/17 10/01/17 History Insulin Glargine [Lantus] 120 unit SQ DAILY 10/01/17 10/01/17 History Insulin Lispro [humaLOG Kwikpen] See Protocol SQ AC-TID 10/01/17 10/01/17 History Ipratropium-Albuterol Nebulize 3 ml INHALATION RT-TID 10/01/17 10/01/17 History [Duoneb 0.5 mg-3 mg/3 ml Soln] Lisinopril [Zestril] 5 mg PO DAILY 10/01/17 10/01/17 History Loratadine-Pseudoeph 10-240 mg 1 tab PO DAILY 10/01/17 10/01/17 History [Claritin-D 24 Hr] Meloxicam [Mobic] 15 mg PO DAILY 10/01/17 10/01/17 History Metoprolol Succinate [Toprol XL] 25 mg PO DAILY 10/01/17 10/01/17 History Potassium Chloride [K-Tab ER] 20 meq PO TID 10/01/17 10/01/17 History Pregabalin [Lyrica] 150 mg PO BID 10/01/17 10/01/17 History Ranitidine HCl [Zantac] 150 mg PO BID 10/01/17 10/01/17 History Simvastatin [Zocor] 80 mg PO HS 10/01/17 10/01/17 History metFORMIN HCL [Glucophage] 1,000 mg PO BID 10/01/17 10/01/17 History predniSONE See Taper PO DIRECTED 10/01/17 10/01/17 History Allergies Allergy/AdvReac Type Severity Reaction Status Date / Time No Known Allergies Allergy Verified 10/01/17 11:44 Physical Exam Vitals: Vital Signs Temp Pulse Pulse Resp BP BP Pulse Ox 10/01/17 12:23 90 10/01/17 12:13 91 10/01/17 08:28 87 10/01/17 08:15 86 96 10/01/17 07:20 98.5 F 77 16 135/69 96 10/01/17 06:43 78 16 133/75 92 L 10/01/17 02:23 83 16 124/68 96 09/30/17 23:45 99 F 89 20 112/58 90 L Intake and Output 09/30/17 10/01/17 10/01/17 22:59 06:59 14:59 Other: Weight 167.829 kg GENERAL EXAM: Morbidly obese. Alert, comfortable in no apparent distress. HEAD: Normocephalic. EYES: Normal reaction of pupils, equal size. NOSE: Clear with pink turbinates. THROAT: There is crowding the posterior pharynx. No erythema or exudates. NECK: Short. No masses, no JVD. CHEST: No chest wall deformity. LUNGS: Equal air entry with no crackles, wheeze, rhonchi or dullness. CVS: S1 and S2 normal with no audible murmur, regular rhythm. ABDOMEN: Obese, normal bowel sounds, no guarding or rigidity. SPINE: No scoliosis or deformity SKIN: No rashes CENTRAL NERVOUS SYSTEM: No focal deficits, tone is normal in all 4 extremities. EXTREMITIES: There is no peripheral edema. No clubbing, no cyanosis. Peripheral pulses are intact. Results - Laboratory Findings CBC and BMP: 10/01/17 00:03 Abnormal lab findings: Abnormal Labs 09/30/17 10/01/17 10/01/17 23:59 00:03 07:53 Chloride 91 L Carbon Dioxide 42 H* BUN 31 H Glucose 374 H POC Glucose (mg/dL) 362 H 346 H Total Protein 6.0 L Albumin 3.4 L 10/01/17 11:42 Chloride Carbon Dioxide BUN Glucose POC Glucose (mg/dL) 388 H Total Protein Albumin - Diagnostic Findings Chest x-ray: image reviewed Assessment and Plan Assessment: Impression: #1 Acute exacerbation of chronic obstructive pulmonary disease. #2 Acute on chronic hypoxic respiratory failure secondary to above. #3 Acute on chronic hypercapnic respiratory failure secondary to above. #4 Morbid obesity with obesity/hypoventilation pickwickian syndrome. #5 Obstructive sleep apnea utilizing BiPAP in the outpatient setting. #6 Diabetes mellitus with steroid-induced hyperglycemia. #7 Diabetic neuropathy. #8 Acute renal failure secondary to diabetes mellitus and diuretics. #9 Hypertension. #10 Hyperlipidemia. #11 Osteoarthritis. #12 History of gout. #13 Hypothyroidism. Plan: The patient was seen and evaluated by Dr. Nava. Her chest x-ray and labs were reviewed. The patient will be treated for her COPD exacerbation. No clear evidence clinically or radiographically of pneumonia. Continue with her current medications including bronchodilators, add Pulmicort inhalations. We' ll back off on the IV Solu-Medrol due hyperglycemia. No significant wheezing detected. She is on empiric antibiotics in the form of Levaquin. Diuretics. Decrease IV fluids. Heparin for DVT prophylaxis. Continue Diamox. Repeat labs in the a.m. We will continue to follow and make further recommendations based on her clinical status. I, the cosigning physician, performed a history & physical examination of the patient. Lungs sounds are clear. Diminished. Maintaining good O2 saturations in the 90s on 4 L/m per nasal cannula. I discussed the assessment and plan of care with my nurse practitioner, Allison Cast. I attest to the above note as dictated by her. Time with Patient: Greater than 30
[2017-10-01] MEDS: LEVOFLOXACIN 500 MG TAB PO SCH (15:08)
[2017-10-01 17:05] LABS: Glucose,Whole Blood 427 mg/dL (75-99)
[2017-10-01] MEDS: methylPREDNISolone SOD SUCCI 40 MG/ML 1 ML VIAL IV SCH (17:29)
[2017-10-01] MEDS ORDERED: INSULIN REGULAR BOLUS (FROM DRIP BAG) IV ONE (18:01)
[2017-10-01] MEDS: BUDESONIDE 1 MG/2 ML NEBU INHALATION SCH (19:30)
[2017-10-01] MEDS: INSULIN REGULAR 100 UNIT in SODIUM CHLORIDE 0.9% 100 ML IV SCH ×2 (19:35→23:19)
[2017-10-01 19:36] LABS: Glucose,Whole Blood 510 mg/dL (75-99)
[2017-10-01] MEDS ORDERED: IPRATROPIUM-ALBUTEROL 3 ML NEB INHALATION PRN (19:52)
[2017-10-01 20:25] LABS: Glucose,Whole Blood 423 mg/dL (75-99)
[2017-10-01 21:12] LABS: Glucose,Whole Blood 371 mg/dL (75-99)
[2017-10-01 21:36] LABS: Glucose,Whole Blood 330 mg/dL (75-99)
[2017-10-01 22:04] LABS: Glucose,Whole Blood 336 mg/dL (75-99)
[2017-10-01 22:34] LABS: Glucose,Whole Blood 275 mg/dL (75-99)
[2017-10-01] MEDS: traMADol 50 MG TAB PO PRN (22:37)
[2017-10-01 22:59] LABS: Glucose,Whole Blood 332 mg/dL (75-99)
--- NOTE | 2017-10-01 23:38 | P.HPIM ---
History of Present Illness H&P Date: 10/01/17 Chief Complaint: Shortness of breath Patient is a 52-year-old female with a known history of diabetes mellitus, neuropathy, hyperlipidemia, hypertension, osteoarthritis, hypothyroidism, morbid obesity, hypoxic and hypercapnic respiratory failure, chronic obstructive pulmonary disease, remote smoking history, obstructive sleep apnea and follows with Dr. Christianson in our office for the same. She has a CPAP as well as a BiPAP now at home. She has supplemental oxygen. She has nebulized treatments and she utilizes Breo and Singulair. She has had multiple admissions for COPD exacerbations most recently discharged from [facility]. She presented here again yesterday from [facility] with complaints of tightness in the throat and shortness of breath. Chest x- ray from there did not reveal any acute pulmonary process. She was admitted for another COPD exacerbation. She is seen today in consultation on the regular medical floor. She is awake and alert in no acute distress she is resting quite comfortably in bed. She is laying flat. She is maintaining good O2 saturations in the mid 90s on 4 L/m per nasal cannula. She's afebrile. Hemodynamically stable. Bicarb 42. Creatinine 0.80. Blood glucose readings have been in the 300s. Acetone is negative. Review of Systems Constitutional: Patient denies any fever or chills . No generalized weakness or weight loss. Abdomen: Patient denied nausea vomiting and diarrhea and abdominal pain. Cardiovascular: Patient denies any chest pain or short of breath no palpitations. Respiratory: Cough with sputum production yellowish. Positive shortness of breath Neurologic: Patient denied any numbness or tingling headache. Musculoskeletal: Patient denies any complaints of joint swelling or deformity. Skin: Negative Psychiatric: Negative Endocrine: No heat or cold intolerance. No recent weight gain. Genitourinary: No dysuria or hematuria. All other 14 point ROS negative except the above Past Medical History Past Medical History: Asthma, Chest Pain / Angina, Heart Failure, COPD, Diabetes Mellitus, Hyperlipidemia, Hypertension, Neurologic Disorder, Osteoarthritis (OA), Pneumonia, Respiratory Disorder, Sleep Apnea/CPAP/BIPAP, Syncope, Thyroid Disorder Additional Past Medical History / Comment(s): GOUT, NEUROPATHY-FEET, sleep apnea but cpap not working, has home 02 4 liters n/c atc, past resp failure, hypothyroid,,lt lower lobe nodule-radiation therapy(,unsuccesful bx) History of Any Multi-Drug Resistant Organisms: None Reported Past Surgical History: Section Additional Past Surgical History / Comment(s): LT CARPAL TUNNEL, 3 unsuccessful attempts at lt lobe bx Past Anesthesia/Blood Transfusion Reactions: No Reported Reaction Additional Past Anesthesia/Blood Transfusion Reaction / Comment(s): CLAUSTERPHOBIA Past Psychological History: No Psychological Hx Reported Additional Psychological History / Comment(s): Receiving home care services Smoking Status: Former smoker Past Alcohol Use History: None Reported Additional Past Alcohol Use History / Comment(s): STARTED SMOKING 1975-STOPPED 2007 Past Drug Use History: None Reported - Past Family History Father Family Medical History: COPD, Diabetes Mellitus Mother History Unknown: Yes Family Medical History: No Reported History Additional Family Medical History / Comment(s): AT AGE 43 FROM SUICIDE Medications and Allergies Home Medications Medication Instructions Recorded Confirmed Type Nitroglycerin Sl Tabs [Nitrostat] 0.4 mg SUBLINGUAL Q5M PRN 08/20/14 10/01/17 History Febuxostat [Uloric] 80 mg PO DAILY 05/04/16 10/01/17 History Montelukast [Singulair] 10 mg PO HS 07/18/16 10/01/17 History Budesonide [Pulmicort] 0.5 mg INHALATION RT-BID #1 nebu 11/23/16 10/01/17 Rx Gabapentin [Neurontin] 300 mg PO BID #30 cap 11/23/16 10/01/17 Rx Orphenadrine Citrate 100 mg PO BID 07/09/17 10/01/17 History Ferrous Sulfate [Iron (65 MG 325 mg PO DAILY #30 tab 07/12/17 10/01/17 Rx Elemental)] Metolazone [Zaroxolyn] 5 mg PO DAILY #0 07/22/17 10/01/17 Rx traMADol HCl [Ultram] 50 mg PO Q12H PRN #10 tab 07/22/17 10/01/17 Rx Aspirin 81 mg PO DAILY 10/01/17 10/01/17 History Escitalopram [Lexapro] 10 mg PO HS 10/01/17 10/01/17 History Famotidine [Pepcid] 20 mg PO DAILY 10/01/17 10/01/17 History Furosemide [Lasix] 40 mg PO TID@0700,1300,1700 10/01/17 10/01/17 History Insulin Glargine [Lantus] 120 unit SQ DAILY 10/01/17 10/01/17 History Insulin Lispro [humaLOG Kwikpen] See Protocol SQ AC-TID 10/01/17 10/01/17 History Ipratropium-Albuterol Nebulize 3 ml INHALATION RT-TID 10/01/17 10/01/17 History [Duoneb 0.5 mg-3 mg/3 ml Soln] Lisinopril [Zestril] 5 mg PO DAILY 10/01/17 10/01/17 History Loratadine-Pseudoeph 10-240 mg 1 tab PO DAILY 10/01/17 10/01/17 History [Claritin-D 24 Hr] Meloxicam [Mobic] 15 mg PO DAILY 10/01/17 10/01/17 History Metoprolol Succinate [Toprol XL] 25 mg PO DAILY 10/01/17 10/01/17 History Potassium Chloride [K-Tab ER] 20 meq PO TID 10/01/17 10/01/17 History Pregabalin [Lyrica] 150 mg PO BID 10/01/17 10/01/17 History Ranitidine HCl [Zantac] 150 mg PO BID 10/01/17 10/01/17 History Simvastatin [Zocor] 80 mg PO HS 10/01/17 10/01/17 History metFORMIN HCL [Glucophage] 1,000 mg PO BID 10/01/17 10/01/17 History predniSONE See Taper PO DIRECTED 10/01/17 10/01/17 History Allergies Allergy/AdvReac Type Severity Reaction Status Date / Time No Known Allergies Allergy Verified 10/01/17 11:44 Physical Exam Vitals: Vital Signs Temp Pulse Pulse Resp BP BP Pulse Ox 10/01/17 12:23 90 10/01/17 12:13 91 10/01/17 08:28 87 10/01/17 08:15 86 96 10/01/17 07:20 98.5 F 77 16 135/69 96 10/01/17 06:43 78 16 133/75 92 L 10/01/17 02:23 83 16 124/68 96 09/30/17 23:45 99 F 89 20 112/58 90 L Intake and Output 09/30/17 10/01/17 10/01/17 22:59 06:59 14:59 Other: Weight 167.829 kg PHYSICAL EXAMINATION: Patient is lying in the bed comfortably, no acute distress, awake alert and oriented.. Morbidly obesity HEENT: Normocephalic. Neck is supple. Pupils reactive. Nostrils clear. Oral cavity is moist. Ears reveal no drainage. Neck reveals no JVD, carotid bruits, or thyromegaly. CHEST EXAMINATION: Trachea is central. Symmetrical expansion. Bilateral diminished air entry especially basally. CARDIAC: Normal S1, S2 with no gallops. No murmurs ABDOMEN: Soft. Bowel sounds normal. No organomegaly. No abdominal bruits. Extremities: reveal no edema. No clubbing or cyanosis Neurologically awake, alert, oriented x3 with well-coordinated movements. No focal deficits noted Skin: No rash or skin lesions. Psychiatric: Cooperative. Nonsuicidal Musculoskeletal: No joint swelling or deformity. Normal range of motion. Results CBC & Chem 7: 10/01/17 00:03 Labs: Abnormal Lab Results - Last 24 Hours (Table) 09/30/17 10/01/17 10/01/17 Range/Units 23:59 00:03 07:53 Chloride 91 L (98-107) mmol/L Carbon Dioxide 42 H* (22-30) mmol/L BUN 31 H (7-17) mg/dL Glucose 374 H (74-99) mg/dL POC Glucose (mg/dL) 362 H 346 H (75-99) mg/dL Total Protein 6.0 L (6.3-8.2) g/dL Albumin 3.4 L (3.5-5.0) g/dL 10/01/17 Range/Units 11:42 Chloride (98-107) mmol/L Carbon Dioxide (22-30) mmol/L BUN (7-17) mg/dL Glucose (74-99) mg/dL POC Glucose (mg/dL) 388 H (75-99) mg/dL Total Protein (6.3-8.2) g/dL Albumin (3.5-5.0) g/dL Thrombosis Risk Factor Assmnt - DVT/VTE Prophylaxis DVT/VTE Prophylaxis: Pharmacologic Prophylaxis ordered - Choose All That Apply Any of the Below Risk Factors Present?: Yes Each Factor Represents 1 point: Abnormal pulmonary function (COPD), Age 41-60 years, Obesity (BMI >25) Other Risk Factors: No Other congenital or acquired thrombophilia - If yes, enter type in comment: No Thrombosis Risk Factor Assessment Total Risk Factor Score: 3 Thrombosis Risk Factor Assessment Level: Moderate Risk Assessment and Plan Assessment: Acute on chronic hypoxic and hypercapnic respiratory failure secondary to COPD exacerbation Acute COPD exacerbation Tracheobronchitis with no evidence of pneumonia Morbid obesity/obesity hypoventilation syndrome Obstructive sleep apnea on BiPAP at home Moderate pulmonary hypertension Diabetes type 2 Hyperglycemia due to steroid use Hypertension Hyperlipidemia Morbid obesity Osteo-arthritis Hypothyroidism History of gout DVT prophylaxis Plan: Patient will be continued on IV steroids at 40 mg every 6 hourly. Continue the breathing treatments and patient will be started on insulin drip due to hyperglycemia. We will continue the home medications and follow closely. Further recommendations based on the clinical course. Prognosis is guarded with multiple medical problems and comorbid conditions. Time with Patient: Greater than 30
[2017-10-02 00:04] LABS: Glucose,Whole Blood 265 mg/dL (75-99)
[2017-10-02 00:04] LABS: Glucose,Whole Blood 263 mg/dL (75-99)
[2017-10-02] MEDS: HEPARIN SODIUM,PORCINE 5,000 UNIT/ML 1 ML VIAL SQ SCH ×4 (00:30→23:17)
[2017-10-02] MEDS: methylPREDNISolone SOD SUCCI 40 MG/ML 1 ML VIAL IV SCH ×4 (00:30→23:17)
[2017-10-02 00:40] LABS: Glucose,Whole Blood 254 mg/dL (75-99)
[2017-10-02 01:29] LABS: Glucose,Whole Blood 216 mg/dL (75-99)
[2017-10-02 04:07] LABS: Glucose,Whole Blood 176 mg/dL (75-99)
[2017-10-02 06:24] LABS: Glucose,Whole Blood 230 mg/dL (75-99)
[2017-10-02 07:03] LABS: Glucose,Whole Blood 194 mg/dL (75-99)
[2017-10-02] MEDS: IPRATROPIUM-ALBUTEROL 3 ML NEB INHALATION SCH ×4 (08:42→20:17)
[2017-10-02] MEDS: BUDESONIDE 1 MG/2 ML NEBU INHALATION SCH ×2 (08:42→20:17)
[2017-10-02 10:01] LABS: Glucose,Whole Blood 216 mg/dL (75-99)
[2017-10-02] MEDS: INSULIN ASPART 100 UNIT/ML 1 ML 10 ML VIAL SQ SCH ×3 (10:11→18:34)
[2017-10-02] MEDS: GABAPENTIN 300 MG CAP PO SCH ×2 (10:19→20:38)
[2017-10-02] MEDS: acetaZOLAMIDE 250 MG TAB PO SCH ×2 (10:19→20:38)
[2017-10-02] MEDS: METOLAZONE 5 MG TAB PO SCH (10:19)
[2017-10-02] MEDS: METOPROLOL TARTRATE 12.5 MG TAB PO SCH (10:19)
[2017-10-02] MEDS: FUROSEMIDE 80 MG TAB PO SCH ×2 (10:20→13:57)
[2017-10-02] MEDS: LEVOFLOXACIN 500 MG TAB PO SCH (10:20)
[2017-10-02 11:43] LABS: Glucose,Whole Blood 266 mg/dL (75-99)
[2017-10-02] MEDS: INSULIN REGULAR 100 UNIT in SODIUM CHLORIDE 0.9% 100 ML IV SCH ×2 (11:46→20:56)
[2017-10-02 14:00] LABS: Glucose,Whole Blood 315 mg/dL (75-99)
[2017-10-02 16:10] LABS: Glucose,Whole Blood 216 mg/dL (75-99)
--- NOTE | 2017-10-02 16:33 | P.PN ---
Subjective Progress Note Date: 10/02/17 Principal diagnosis: Acute on chronic hypoxic respiratory failure secondary to COPD and obesity/ hypoventilation syndrome. Also secondary to obstructive sleep apnea syndrome. This is a very pleasant 52-year-old female patient who follows with Dr. Dimas as her primary care physician. She has history of diabetes mellitus, neuropathy, hyperlipidemia, hypertension, osteoarthritis, hypothyroidism, morbid obesity. She also has a history of hypoxic and hypercapnic respiratory failure, chronic obstructive pulmonary disease, remote smoking history, obstructive sleep apnea and follows with Dr. Christianson in our office for the same. She has a CPAP as well as a BiPAP now at home. She has supplemental oxygen. She has nebulized treatments and she utilizes Breo and Singulair. She has had multiple admissions for COPD exacerbations most recently discharged from [facility]. She presented here again yesterday from [facility] with complaints of tightness in the throat and shortness of breath. Chest x-ray from there did not reveal any acute pulmonary process. She was admitted for another COPD exacerbation. She is seen today in consultation on the regular medical floor. She is awake and alert in no acute distress she is resting quite comfortably in bed. She is laying flat. She is maintaining good O2 saturations in the mid 90s on 4 L/m per nasal cannula. She' s afebrile. Hemodynamically stable. Bicarb 42. Creatinine 0.80. Blood glucose readings have been in the 300s. Acetone is negative. Patient was reevaluated today on 10/02/2017, doing well, much improved, hardly any cough no wheezing, and less shortness of breath. Presently on nasal cannula , and uses BiPAP intermittently. Apparently at home she is not very compliant with it because apparently had some technical issues in the BiPAP device itself. And she is waiting for someone to come and empiric. Objective - Vital Signs Vital signs: Vital Signs Temp 98.0 F 10/02/17 15:00 Pulse 69 10/02/17 15:00 Resp 15 10/02/17 15:00 BP 106/70 10/02/17 15:00 Pulse Ox 96 10/02/17 15:00 Intake & Output 10/01/17 10/02/17 10/02/17 18:59 06:59 18:59 Intake Total 141.416 116.063 Balance 141.416 116.063 Intake: Intake, IV Titration 141.416 116.063 Amount Insulin Regular 100 unit 141.416 116.063 In Sodium Chloride 0.9% 100 ml @ Titrate IV .Q0M [facility] Rx#:[id number] Other: Voiding Method Toilet # Voids 3 2 3 - Exam GENERAL EXAM: Morbidly obese. Alert, comfortable in no apparent distress. HEAD: Normocephalic. EYES: Normal reaction of pupils, equal size. NOSE: Clear with pink turbinates. THROAT: There is crowding the posterior pharynx. No erythema or exudates. NECK: Short. No masses, no JVD. CHEST: No chest wall deformity. LUNGS: Equal air entry with no crackles, wheeze, rhonchi or dullness. CVS: S1 and S2 normal with no audible murmur, regular rhythm. ABDOMEN: Obese, normal bowel sounds, no guarding or rigidity. SPINE: No scoliosis or deformity SKIN: No rashes CENTRAL NERVOUS SYSTEM: No focal deficits, tone is normal in all 4 extremities. EXTREMITIES: There is no peripheral edema. No clubbing, no cyanosis. Peripheral pulses are intact. - Labs CBC & Chem 7: 10/01/17 00:03 Labs: Abnormal Lab Results - Last 24 Hours (Table) 10/01/17 10/01/17 10/01/17 Range/Units 16:58 19:31 20:21 POC Glucose (mg/dL) 427 H 510 H 423 H (75-99) mg/dL 10/01/17 10/01/17 10/01/17 Range/Units 20:55 21:22 21:50 POC Glucose (mg/dL) 371 H 330 H 336 H (75-99) mg/dL 10/01/17 10/01/17 10/01/17 Range/Units 22:20 22:50 23:20 POC Glucose (mg/dL) 275 H 332 H 265 H (75-99) mg/dL 10/01/17 10/02/17 10/02/17 Range/Units 23:51 00:26 00:52 POC Glucose (mg/dL) 263 H 254 H 216 H (75-99) mg/dL 10/02/17 10/02/17 10/02/17 Range/Units 03:02 05:01 06:51 POC Glucose (mg/dL) 176 H 230 H 194 H (75-99) mg/dL 10/02/17 10/02/17 10/02/17 Range/Units 09:35 11:21 13:54 POC Glucose (mg/dL) 216 H 266 H 315 H (75-99) mg/dL 10/02/17 Range/Units 15:59 POC Glucose (mg/dL) 216 H (75-99) mg/dL Assessment and Plan Assessment: #1 Acute exacerbation of chronic obstructive pulmonary disease. #2 Acute on chronic hypoxic respiratory failure secondary to above. #3 Acute on chronic hypercapnic respiratory failure secondary to above. #4 Morbid obesity with obesity/hypoventilation pickwickian syndrome. #5 Obstructive sleep apnea utilizing BiPAP in the outpatient setting. #6 Diabetes mellitus with steroid-induced hyperglycemia. #7 Diabetic neuropathy. #8 Acute renal failure secondary to diabetes mellitus and diuretics. #9 Hypertension. #10 Hyperlipidemia. #11 Osteoarthritis. #12 History of gout. #13 Hypothyroidism. Patient is doing well today, I believe the patient could be discharged home tomorrow, however, it would be a little the patient could have a temporary BiPAP device until her on BiPAP is fixed and repair. Otherwise she is going to have frequent readmissions with acute hypoxic/hypercapnic and recurrent respiratory failure. Time with Patient: Less than 30
[2017-10-02 18:35] LABS: Glucose,Whole Blood 173 mg/dL (75-99)
[2017-10-02 20:08] LABS: Hemoglobin A1C 11.2 % (4.0-6.0)
[2017-10-02] MEDS: traMADol 50 MG TAB PO PRN (20:43)
[2017-10-02 20:47] LABS: Glucose,Whole Blood 309 mg/dL (75-99)
[2017-10-02 23:29] LABS: Glucose,Whole Blood 224 mg/dL (75-99)
--- NOTE | 2017-10-03 00:15 | P.PN ---
Subjective Progress Note Date: 10/02/17 Principal diagnosis: Acute COPD exacerbation Patient is a 52-year-old female with a known history of diabetes mellitus, neuropathy, hyperlipidemia, hypertension, osteoarthritis, hypothyroidism, morbid obesity, hypoxic and hypercapnic respiratory failure, chronic obstructive pulmonary disease, remote smoking history, obstructive sleep apnea and follows with Dr. Christianson in our office for the same. She has a CPAP as well as a BiPAP now at home. She has supplemental oxygen. She has nebulized treatments and she utilizes Breo and Singulair. She has had multiple admissions for COPD exacerbations most recently discharged from [facility]. She presented here again yesterday from [facility] with complaints of tightness in the throat and shortness of breath. Chest x- ray from there did not reveal any acute pulmonary process. She was admitted for another COPD exacerbation. She is seen today in consultation on the regular medical floor. She is awake and alert in no acute distress she is resting quite comfortably in bed. She is laying flat. She is maintaining good O2 saturations in the mid 90s on 4 L/m per nasal cannula. She's afebrile. Hemodynamically stable. Bicarb 42. Creatinine 0.80. Blood glucose readings have been in the 300s. Acetone is negative. 10/02/2017 Patient's breathing status did improve slightly. Otherwise denied any chest pain or short of breath. No nausea vomiting or abdominal pain. Patient is on insulin drip for blood sugar management. Otherwise no acute overnight issues. No fever no chills. Still having cough with greenish to yellow sputum production. Sputum sample will be obtained. Otherwise patient needs temporary BiPAP to be arranged. Her BiPAP machine is not functioning well as per patient. All other review of systems negative except the above Current medications reviewed Active Medications Acetaminophen (Tylenol Tab) 650 mg PO Q6H PRN PRN Reason: Pain or Fever > 100.5 Last Admin: 10/01/17 06:09 Dose: 650 mg Acetazolamide (Diamox) 250 mg PO BID [facility] Last Admin: 10/02/17 20:38 Dose: 250 mg Albuterol/Ipratropium (Duoneb 0.5 Mg-3 Mg/3 Ml Soln) 3 ml INHALATION QID [facility] Last Admin: 10/02/17 20:17 Dose: 3 ml Albuterol/Ipratropium (Duoneb 0.5 Mg-3 Mg/3 Ml Soln) 3 ml INHALATION RT-Q2H PRN PRN Reason: Shortness Of Breath Or Wheezing Benzocaine/Menthol (Cepacol Lozenge) 1 each MUCOUS MEM Q4HR PRN PRN Reason: Cold Symptoms Last Admin: 10/01/17 22:36 Dose: 1 each Budesonide (Pulmicort) 1 mg INHALATION RT-BID [facility] Last Admin: 10/02/17 20:17 Dose: 1 mg Furosemide (Lasix) 80 mg PO BID@0700,1300 [facility] Last Admin: 10/02/17 13:57 Dose: 80 mg Gabapentin (Neurontin) 300 mg PO BID [facility] Last Admin: 10/02/17 20:38 Dose: 300 mg Heparin Sodium (Porcine) (Heparin) 5,000 unit SQ Q8HR [facility] Last Admin: 10/02/17 23:17 Dose: 5,000 unit Insulin Human Regular 100 unit (/ Sodium Chloride) 101 mls @ 0 mls/hr IV .Q0M [facility]; Titrate PRN Reason: Protocol Last Titration: 10/02/17 23:26 Dose: 8.91 units/hr, 9 mls/hr Insulin Aspart (Novolog) 22 unit 0.13 unit/kg (22 unit) SQ AC-TID [facility] Last Admin: 10/02/17 18:34 Dose: Not Given Levofloxacin (Levaquin) 500 mg PO DAILY [facility] Stop: 10/08/17 09:01 Last Admin: 10/02/17 10:20 Dose: 500 mg Methylprednisolone Sodium Succinate (Solu-Medrol) 40 mg IV Q8HR [facility] Last Admin: 10/02/17 23:17 Dose: 40 mg Metolazone (Zaroxolyn) 5 mg PO DAILY [facility] Last Admin: 10/02/17 10:19 Dose: 5 mg Metoprolol Tartrate (Lopressor) 12.5 mg PO DAILY [facility] Last Admin: 10/02/17 10:19 Dose: 12.5 mg Nitroglycerin (Nitrostat) 0.4 mg SUBLINGUAL Q5M PRN PRN Reason: Chest Pain Tramadol HCl (Ultram) 50 mg PO Q12H PRN PRN Reason: Moderate Pain Last Admin: 10/02/17 20:43 Dose: 50 mg . Objective - Vital Signs Vital signs: Vital Signs Temp 98.0 F 10/02/17 15:00 Pulse 88 10/02/17 20:17 Resp 15 10/02/17 15:00 BP 106/70 10/02/17 15:00 Pulse Ox 96 10/02/17 15:00 Intake & Output 10/02/17 10/02/17 10/03/17 06:59 18:59 06:59 Intake Total 141.416 136.516 53.861 Balance 141.416 136.516 53.861 Intake: Intake, IV Titration 141.416 136.516 53.861 Amount Insulin Regular 100 unit 141.416 136.516 53.861 In Sodium Chloride 0.9% 100 ml @ Titrate IV .Q0M [facility] Rx#:[id number] Other: Voiding Method Toilet # Voids 2 3 - Exam Patient is lying in the bed comfortably, no acute distress, awake alert and oriented.. Morbidly obesity HEENT: Normocephalic. Neck is supple. Pupils reactive. Nostrils clear. Oral cavity is moist. Ears reveal no drainage. Neck reveals no JVD, carotid bruits, or thyromegaly. CHEST EXAMINATION: Trachea is central. Symmetrical expansion. air entry especially basally-improved from yesterday. CARDIAC: Normal S1, S2 with no gallops. No murmurs ABDOMEN: Soft. Bowel sounds normal. No organomegaly. No abdominal bruits. Extremities: reveal no edema. No clubbing or cyanosis Neurologically awake, alert, oriented x3 with well-coordinated movements. No focal deficits noted Skin: No rash or skin lesions. Psychiatric: Cooperative. Nonsuicidal Musculoskeletal: No joint swelling or deformity. Normal range of motion. - Labs CBC & Chem 7: 10/01/17 00:03 Labs: Abnormal Lab Results - Last 24 Hours (Table) 10/02/17 10/02/17 10/02/17 Range/Units 00:26 00:52 03:02 POC Glucose (mg/dL) 254 H 216 H 176 H (75-99) mg/dL 10/02/17 10/02/17 10/02/17 Range/Units 05:01 06:51 09:35 POC Glucose (mg/dL) 230 H 194 H 216 H (75-99) mg/dL 10/02/17 10/02/17 10/02/17 Range/Units 11:21 13:54 15:59 POC Glucose (mg/dL) 266 H 315 H 216 H (75-99) mg/dL 10/02/17 10/02/17 10/02/17 Range/Units 18:32 20:45 23:27 POC Glucose (mg/dL) 173 H 309 H 224 H (75-99) mg/dL Assessment and Plan Assessment: Acute on chronic hypoxic and hypercapnic respiratory failure secondary to COPD exacerbation Acute COPD exacerbation Tracheobronchitis with no evidence of pneumonia Morbid obesity/obesity hypoventilation syndrome Noncompliance with BiPAP machine due to technical issues Obstructive sleep apnea on BiPAP at home Moderate pulmonary hypertension Diabetes type 2 Hyperglycemia due to steroid use Hypertension Hyperlipidemia Morbid obesity Osteo-arthritis Hypothyroidism History of gout DVT prophylaxis Plan: Patient will be continued on IV steroids at 40 mg every 6 hourly. Continue the breathing treatments and patient is on insulin drip due to hyperglycemia. We will continue the home medications and follow closely. Further recommendations based on the clinical course. Prognosis is guarded with multiple medical problems and comorbid conditions. Time with Patient: Greater than 30
[2017-10-03 01:37] LABS: Glucose,Whole Blood 227 mg/dL (75-99)
[2017-10-03 03:45] LABS: Glucose,Whole Blood 241 mg/dL (75-99)
[2017-10-03] MEDS: INSULIN REGULAR 100 UNIT in SODIUM CHLORIDE 0.9% 100 ML IV SCH (05:18)
[2017-10-03 05:21] LABS: Glucose,Whole Blood 197 mg/dL (75-99)
[2017-10-03 07:11] LABS: Glucose,Whole Blood 178 mg/dL (75-99)
[2017-10-03] MEDS: LEVOFLOXACIN 500 MG TAB PO SCH (08:30)
[2017-10-03] MEDS: INSULIN ASPART 100 UNIT/ML 1 ML 10 ML VIAL SQ SCH ×2 (08:30→12:45)
[2017-10-03] MEDS: FUROSEMIDE 80 MG TAB PO SCH ×2 (08:30→13:45)
[2017-10-03] MEDS: HEPARIN SODIUM,PORCINE 5,000 UNIT/ML 1 ML VIAL SQ SCH (08:30)
[2017-10-03] MEDS: methylPREDNISolone SOD SUCCI 40 MG/ML 1 ML VIAL IV SCH (08:30)
[2017-10-03] MEDS: acetaZOLAMIDE 250 MG TAB PO SCH (08:30)
[2017-10-03] MEDS: GABAPENTIN 300 MG CAP PO SCH (08:31)
[2017-10-03] MEDS: METOLAZONE 5 MG TAB PO SCH (08:31)
[2017-10-03] MEDS: traMADol 50 MG TAB PO PRN (08:31)
[2017-10-03] MEDS: BUDESONIDE 1 MG/2 ML NEBU INHALATION SCH (09:13)
[2017-10-03] MEDS: IPRATROPIUM-ALBUTEROL 3 ML NEB INHALATION SCH ×3 (09:13→16:08)
[2017-10-03 09:14] LABS: Glucose,Whole Blood 289 mg/dL (75-99)
[2017-10-03] MEDS: METOPROLOL TARTRATE 12.5 MG TAB PO SCH (09:22)
--- NOTE | 2017-10-03 09:52 | P.PN ---
Subjective Progress Note Date: 10/03/17 Principal diagnosis: Acute on chronic hypoxic respiratory failure secondary to COPD and obesity/ hypoventilation syndrome. This is a very pleasant 52-year-old female patient who follows with Dr. Dimas as her primary care physician. She has history of diabetes mellitus, neuropathy, hyperlipidemia, hypertension, osteoarthritis, hypothyroidism, morbid obesity. She also has a history of hypoxic and hypercapnic respiratory failure, chronic obstructive pulmonary disease, remote smoking history, obstructive sleep apnea and follows with Dr. Christianson in our office for the same. She has a CPAP as well as a BiPAP now at home. She has supplemental oxygen. She has nebulized treatments and she utilizes Breo and Singulair. She has had multiple admissions for COPD exacerbations most recently discharged from [facility]. She presented here again yesterday from [facility] with complaints of tightness in the throat and shortness of breath. Chest x-ray from there did not reveal any acute pulmonary process. She was admitted for another COPD exacerbation. She is seen today in consultation on the regular medical floor. She is awake and alert in no acute distress she is resting quite comfortably in bed. She is laying flat. She is maintaining good O2 saturations in the mid 90s on 4 L/m per nasal cannula. She' s afebrile. Hemodynamically stable. Bicarb 42. Creatinine 0.80. Blood glucose readings have been in the 300s. Acetone is negative. Patient was reevaluated today on 10/02/2017, doing well, much improved, hardly any cough no wheezing, and less shortness of breath. Presently on nasal cannula , and uses BiPAP intermittently. Apparently at home she is not very compliant with it because apparently had some technical issues in the BiPAP device itself. And she is waiting for someone to come and empiric. On 10/03/2017 patient is seen again in follow-up. She is sitting up on the edge of the bed, eating breakfast. She stated she had some difficulty breathing last night, a breathing treatment was given with not much improvement , however it did subside on its own. And this morning she is feeling better, she denies any acute distress. Remains on 4 L per nasal cannula with O2 sat 93% . She is afebrile, vital signs are stable. She has a dry nonproductive cough. She continues on IV Solu-Medrol and Levaquin. We will speak to the service planner regarding the status of her BiPAP unit repair. Patient will also need portable oxygen for transport home today in the event of discharge. She states she has been ambulating and tolerating activity well. Lung sounds are diminished, no wheezing noted. Objective - Vital Signs Vital signs: Vital Signs Temp 97.5 F L 10/03/17 07:00 Pulse 92 10/03/17 09:33 Resp 14 10/03/17 07:00 BP 110/78 10/03/17 07:00 Pulse Ox 93 L 10/03/17 07:00 Intake & Output 10/02/17 10/03/17 10/03/17 18:59 06:59 18:59 Intake Total 136.516 413.611 28.117 Balance 136.516 413.611 28.117 Intake: Intake, IV Titration 136.516 113.611 28.117 Amount Insulin Regular 100 unit 136.516 113.611 28.117 In Sodium Chloride 0.9% 100 ml @ Titrate IV .Q0M [facility] Rx#:[id number] Oral 300 Other: Voiding Method Toilet # Voids 3 - Exam GENERAL EXAM: Morbidly obese. Alert, comfortable in no apparent distress. HEAD: Normocephalic. EYES: Normal reaction of pupils, equal size. NOSE: Clear with pink turbinates. THROAT: There is crowding the posterior pharynx. No erythema or exudates. NECK: Short. No masses, no JVD. CHEST: No chest wall deformity. LUNGS: Equal air entry with no crackles, wheeze, rhonchi or dullness. CVS: S1 and S2 normal with no audible murmur, regular rhythm. ABDOMEN: Obese, normal bowel sounds, no guarding or rigidity. SPINE: No scoliosis or deformity SKIN: No rashes CENTRAL NERVOUS SYSTEM: No focal deficits, tone is normal in all 4 extremities. EXTREMITIES: There is no peripheral edema. No clubbing, no cyanosis. Peripheral pulses are intact. - Labs CBC & Chem 7: 10/01/17 00:03 Labs: Abnormal Lab Results - Last 24 Hours (Table) 10/02/17 10/02/17 10/02/17 Range/Units 09:35 11:21 12:12 POC Glucose (mg/dL) 216 H 266 H (75-99) mg/dL Hemoglobin A1c 11.2 H (4.0-6.0) % 10/02/17 10/02/17 10/02/17 Range/Units 13:54 15:59 18:32 POC Glucose (mg/dL) 315 H 216 H 173 H (75-99) mg/dL Hemoglobin A1c (4.0-6.0) % 10/02/17 10/02/17 10/03/17 Range/Units 20:45 23:27 01:13 POC Glucose (mg/dL) 309 H 224 H 227 H (75-99) mg/dL Hemoglobin A1c (4.0-6.0) % 10/03/17 10/03/17 10/03/17 Range/Units 03:33 05:19 06:56 POC Glucose (mg/dL) 241 H 197 H 178 H (75-99) mg/dL Hemoglobin A1c (4.0-6.0) % 10/03/17 Range/Units 09:09 POC Glucose (mg/dL) 289 H (75-99) mg/dL Hemoglobin A1c (4.0-6.0) % Assessment and Plan Plan: Assessment: #1 Acute exacerbation of chronic obstructive pulmonary disease. #2 Acute on chronic hypoxic respiratory failure secondary to above. #3 Acute on chronic hypercapnic respiratory failure secondary to above. #4 Morbid obesity with obesity/hypoventilation pickwickian syndrome. #5 Obstructive sleep apnea utilizing BiPAP in the outpatient setting. #6 Diabetes mellitus with steroid-induced hyperglycemia. #7 Diabetic neuropathy. #8 Acute renal failure secondary to diabetes mellitus and diuretics. #9 Hypertension. #10 Hyperlipidemia. #11 Osteoarthritis. #12 History of gout. #13 Hypothyroidism. Plan: Patient continues to improve, denies any acute distress. Lung sounds are diminished, but no rales or wheezes appreciated. She is on her home dose oxygen at 4 L per nasal cannula. No acute events overnight, no specific complaints. She's been able to tolerate activity well. Anticipate discharge home today, pending arrangement of her portable oxygen and repair of her home BiPAP unit. We will speak to service planner. She will need follow-up appointment with Dr. Christianson in one week. I performed a history & physical examination of the patient and discussed their management with my nurse practitioner, Tiffany Wang. I reviewed the nurse practitioner's note and agree with the documented findings and plan of care. Lung sounds are diminished. The findings and the impression was discussed with the patient. I attest to the documentation by the nurse practitioner. Time with Patient: Less than 30
[2017-10-03 11:06] LABS: Glucose,Whole Blood 228 mg/dL (75-99)
[2017-10-03 13:17] LABS: Glucose,Whole Blood 104 mg/dL (75-99)
[2017-10-03 13:33] LABS: Glucose,Whole Blood 175 mg/dL (75-99)
--- NOTE | 2017-10-03 14:45 | P.DS ---
Providers Date of admission: 10/01/17 00:50 Attending physician: Zhen Apple Consults: 10/01/17 00:45 Consult Physician Routine Consulting Provider: Ish Nava Consult Reason/Comments: COPD with exacerbation, failed outpatient treatment Do you want consulting provider notified?: Yes, Notify in am Primary care physician: Physician Nonstaff Hospital Course: 52-year-old female with a known history of diabetes mellitus, neuropathy, hyperlipidemia, hypertension, osteoarthritis, hypothyroidism, morbid obesity, hypoxic and hypercapnic respiratory failure, chronic obstructive pulmonary disease, remote smoking history, obstructive sleep apnea and follows with Dr. Christianson in our office for the same. She has a CPAP as well as a BiPAP now at home. She has supplemental oxygen. She has nebulized treatments and she utilizes Breo and Singulair. She has had multiple admissions for COPD exacerbations most recently discharged from [facility]. She presented here again yesterday from [facility] with complaints of tightness in the throat and shortness of breath. Chest x-ray from there did not reveal any acute pulmonary process. She was admitted for another COPD exacerbation. She is seen today in consultation on the regular medical floor. She is awake and alert in no acute distress she is resting quite comfortably in bed. She is laying flat. She is maintaining good O2 saturations in the mid 90s on 4 L/m per nasal cannula. She's afebrile. Hemodynamically stable. Bicarb 42. Creatinine 0.80. Blood glucose readings have been in the 300s. Acetone is negative. 10/02/2017 Patient's breathing status did improve slightly. Otherwise denied any chest pain or short of breath. No nausea vomiting or abdominal pain. Patient is on insulin drip for blood sugar management. Otherwise no acute overnight issues. No fever no chills. Still having cough with greenish to yellow sputum production. Sputum sample will be obtained. 10/03/2017 patient needs temporary BiPAP to be arranged. Her BiPAP machine is not functioning well as per patient. strategic accounts manager is working on getting it fixed before she is discharged. Is is pretty status is at her baseline GENERAL EXAM: Morbidly obese. Alert, comfortable in no apparent distress. HEAD: Normocephalic. EYES: Normal reaction of pupils, equal size. NOSE: Clear with pink turbinates. THROAT: There is crowding the posterior pharynx. No erythema or exudates. NECK: Short. No masses, no JVD. CHEST: No chest wall deformity. LUNGS: Equal air entry with no crackles, wheeze, rhonchi or dullness. CVS: S1 and S2 normal with no audible murmur, regular rhythm. ABDOMEN: Obese, normal bowel sounds, no guarding or rigidity. SPINE: No scoliosis or deformity SKIN: No rashes CENTRAL NERVOUS SYSTEM: No focal deficits, tone is normal in all 4 extremities. EXTREMITIES: There is no peripheral edema. No clubbing, no cyanosis. Peripheral pulses are intact. Assessment and Plan Plan: Assessment: #1 Acute exacerbation of chronic obstructive pulmonary disease. #2 Acute on chronic hypoxic respiratory failure secondary to above. #3 Acute on chronic hypercapnic respiratory failure secondary to above. #4 Morbid obesity with obesity/hypoventilation pickwickian syndrome. #5 Obstructive sleep apnea utilizing BiPAP in the outpatient setting. #6 Diabetes mellitus with steroid-induced hyperglycemia. #7 Diabetic neuropathy. #8 Acute renal failure secondary to diabetes mellitus and diuretics. #9 Hypertension. #10 Hyperlipidemia. #11 Osteoarthritis. #12 History of gout. #13 Hypothyroidism. Patient Condition at Discharge: Stable Plan - Discharge Summary Discharge Rx Participant: Yes New Discharge Prescriptions: New Levofloxacin [Levaquin] 500 mg PO DAILY 5 Days #5 tab predniSONE 10 mg PO DAILY 16 Days #40 tab No Action Nitroglycerin Sl Tabs [Nitrostat] 0.4 mg SUBLINGUAL Q5M PRN PRN Reason: Chest Pain Febuxostat [Uloric] 80 mg PO DAILY Montelukast [Singulair] 10 mg PO HS Budesonide [Pulmicort] 0.5 mg INHALATION RT-BID #1 nebu Gabapentin [Neurontin] 300 mg PO BID #30 cap Orphenadrine Citrate 100 mg PO BID Ferrous Sulfate [Iron (65 MG Elemental)] 325 mg PO DAILY #30 tab traMADol HCl [Ultram] 50 mg PO Q12H PRN #10 tab PRN Reason: Moderate Pain Metolazone [Zaroxolyn] 5 mg PO DAILY #0 Aspirin 81 mg PO DAILY Escitalopram [Lexapro] 10 mg PO HS Famotidine [Pepcid] 20 mg PO DAILY Furosemide [Lasix] 40 mg PO TID@0700,1300,1700 Insulin Glargine [Lantus] 120 unit SQ DAILY Insulin Lispro [humaLOG Kwikpen] See Protocol SQ AC-TID Ipratropium-Albuterol Nebulize [Duoneb 0.5 mg-3 mg/3 ml Soln] 3 ml INHALATION RT-TID Lisinopril [Zestril] 5 mg PO DAILY Loratadine-Pseudoeph 10-240 mg [Claritin-D 24 Hr] 1 tab PO DAILY Meloxicam [Mobic] 15 mg PO DAILY metFORMIN HCL [Glucophage] 1,000 mg PO BID Metoprolol Succinate [Toprol XL] 25 mg PO DAILY Potassium Chloride [K-Tab ER] 20 meq PO TID predniSONE See Taper PO DIRECTED Pregabalin [Lyrica] 150 mg PO BID Ranitidine HCl [Zantac] 150 mg PO BID Simvastatin [Zocor] 80 mg PO HS Discharge Medication List Nitroglycerin Sl Tabs [Nitrostat] 0.4 mg SUBLINGUAL Q5M PRN 08/20/14 [History] Febuxostat [Uloric] 80 mg PO DAILY 05/04/16 [History] Montelukast [Singulair] 10 mg PO HS 07/18/16 [History] Budesonide [Pulmicort] 0.5 mg INHALATION RT-BID #1 nebu 11/23/16 [Rx] Gabapentin [Neurontin] 300 mg PO BID #30 cap 11/23/16 [Rx] Orphenadrine Citrate 100 mg PO BID 07/09/17 [History] Ferrous Sulfate [Iron (65 MG Elemental)] 325 mg PO DAILY #30 tab 07/12/17 [Rx] Metolazone [Zaroxolyn] 5 mg PO DAILY #0 07/22/17 [Rx] traMADol HCl [Ultram] 50 mg PO Q12H PRN #10 tab 07/22/17 [Rx] Aspirin 81 mg PO DAILY 10/01/17 [History] Escitalopram [Lexapro] 10 mg PO HS 10/01/17 [History] Famotidine [Pepcid] 20 mg PO DAILY 10/01/17 [History] Furosemide [Lasix] 40 mg PO TID@0700,1300,1700 10/01/17 [History] Insulin Glargine [Lantus] 120 unit SQ DAILY 10/01/17 [History] Insulin Lispro [humaLOG Kwikpen] See Protocol SQ AC-TID 10/01/17 [History] Ipratropium-Albuterol Nebulize [Duoneb 0.5 mg-3 mg/3 ml Soln] 3 ml INHALATION RT -TID 10/01/17 [History] Lisinopril [Zestril] 5 mg PO DAILY 10/01/17 [History] Loratadine-Pseudoeph 10-240 mg [Claritin-D 24 Hr] 1 tab PO DAILY 10/01/17 [ History] Meloxicam [Mobic] 15 mg PO DAILY 10/01/17 [History] Metoprolol Succinate [Toprol XL] 25 mg PO DAILY 10/01/17 [History] Potassium Chloride [K-Tab ER] 20 meq PO TID 10/01/17 [History] Pregabalin [Lyrica] 150 mg PO BID 10/01/17 [History] Ranitidine HCl [Zantac] 150 mg PO BID 10/01/17 [History] Simvastatin [Zocor] 80 mg PO HS 10/01/17 [History] metFORMIN HCL [Glucophage] 1,000 mg PO BID 10/01/17 [History] predniSONE See Taper PO DIRECTED 10/01/17 [History] Levofloxacin [Levaquin] 500 mg PO DAILY 5 Days #5 tab 10/03/17 [Rx] predniSONE 10 mg PO DAILY 16 Days #40 tab 10/03/17 [Rx] Follow up Appointment(s)/Referral(s): Nonstaff,Physician [Primary Care Provider] - 1-2 days Aracelis Christianson MD [STAFF PHYSICIAN] - 1 Week Activity/Diet/Wound Care/Special Instructions: [facility] - [employer] to deliver portable Oxygen Tank today. [employer] will pick pulling machine tender tank later this week from patient's home.
[2017-10-03 16:11] LABS: Glucose,Whole Blood 187 mg/dL (75-99)
[2017-10-03 16:14] VITALS: BP 124/74; PULSE 87; RESP 19; TEMP 99
[2017-10-04] MEDS ORDERED: predniSONE 20 MG TAB PO SCH (09:00)
== END 2017-10-03 16:20 | disposition home health service (06) | DRG 190 ==
LOC: EC 23:42 → 5MS5E 10-01 00:50 → 3SUR 10-01 04:31
PROVIDERS: ADMIT Internal Medicine; ATTEND Internal Medicine
DX: J44.1 Chronic obstructive pulmonary disease with (acute) exacerbation (principal); J96.22 Acute and chronic respiratory failure with hypercapnia; J96.21 Acute and chronic respiratory failure with hypoxia; N17.9 Acute kidney failure, unspecified; E66.2 Morbid (severe) obesity with alveolar hypoventilation; E11.40 Type 2 diabetes mellitus with diabetic neuropathy, unspecified; I27.20 Pulmonary hypertension, unspecified; E11.65 Type 2 diabetes mellitus with hyperglycemia; T38.0X5A Adverse effect of glucocorticoids and synthetic analogues, initial encounter; I50.9 Heart failure, unspecified; E78.5 Hyperlipidemia, unspecified; I11.0 Hypertensive heart disease with heart failure; M19.90 Unspecified osteoarthritis, unspecified site; E03.9 Hypothyroidism, unspecified; M10.9 Gout, unspecified; Z87.891 Personal history of nicotine dependence; Z87.01 Personal history of pneumonia (recurrent); Z79.1 Long term (current) use of non-steroidal anti-inflammatories (NSAID); Z79.82 Long term (current) use of aspirin; Z79.899 Other long term (current) drug therapy; Z83.3 Family history of diabetes mellitus; Z79.4 Long term (current) use of insulin; Z82.5 Family history of asthma and other chronic lower respiratory diseases; Z79.52 Long term (current) use of systemic steroids; Z99.81 Dependence on supplemental oxygen; Z91.19 Patient's noncompliance with other medical treatment and regimen
CPT/HCPCS: 36415; 80053; 82009; 83036; 83735; 94640; 99285

== ENCOUNTER 2017-10-07 20:17 | Inpatient (IN) | payer MEDICARE ==
[2017-10-07] MEDS ORDERED: ACETAMINOPHEN TAB 325 MG TAB PO PRN (20:35)
[2017-10-07] MEDS ORDERED: NALOXONE 0.4 MG/ML 1 ML VIAL IV PRN (20:35)
[2017-10-07] MEDS ORDERED: HYDROmorphone 0.5 MG/0.5 ML SYRINGE IVP PRN (20:35)
--- NOTE | 2017-10-07 20:42 | ED ---
General Adult HPI - General Chief complaint: Recheck/Abnormal Lab/Rx Stated complaint: Renal Failure Time Seen by Provider: 10/07/17 20:19 Source: patient, EMS, RN notes reviewed, old records reviewed Mode of arrival: EMS Limitations: no limitations - History of Present Illness Initial comments: 52-year-old female presenting as a transfer from outside hospital with acute renal failure. Patient was noted to have serum creatinine 5.6 from baseline of 1 and a BUN of 117. She was transferred for evaluation and treatment. Patient has no known history of kidney disease. She does have history of COPD, and chronic hypoxic hypercapnic respiratory failure. She is on home oxygen. She has history of obesity and obesity associated hypoventilation syndrome. She is on several medications that may contribute to renal failure including NSAIDs, 40 mg Lasix 3 times a day. Chief complaint was worsening generalized weakness and near syncope. Patient has had decreased urine output over the past several days. She did receive IV hydration prior to transport. Patient has no new complaints the time my evaluation. - Related Data Home Medications Medication Instructions Recorded Confirmed Nitroglycerin Sl Tabs [Nitrostat] 0.4 mg SUBLINGUAL Q5M PRN 08/20/14 10/01/17 Febuxostat [Uloric] 80 mg PO DAILY 05/04/16 10/01/17 Montelukast [Singulair] 10 mg PO HS 07/18/16 10/01/17 Orphenadrine Citrate 100 mg PO BID 07/09/17 10/01/17 Aspirin 81 mg PO DAILY 10/01/17 10/01/17 Escitalopram [Lexapro] 10 mg PO HS 10/01/17 10/01/17 Famotidine [Pepcid] 20 mg PO DAILY 10/01/17 10/01/17 Furosemide [Lasix] 40 mg PO TID@0700,1300,1700 10/01/17 10/01/17 Insulin Glargine [Lantus] 120 unit SQ DAILY 10/01/17 10/01/17 Insulin Lispro [humaLOG Kwikpen] See Protocol SQ AC-TID 10/01/17 10/01/17 Ipratropium-Albuterol Nebulize 3 ml INHALATION RT-TID 10/01/17 10/01/17 [Duoneb 0.5 mg-3 mg/3 ml Soln] Lisinopril [Zestril] 5 mg PO DAILY 10/01/17 10/01/17 Loratadine-Pseudoeph 10-240 mg 1 tab PO DAILY 10/01/17 10/01/17 [Claritin-D 24 Hr] Meloxicam [Mobic] 15 mg PO DAILY 10/01/17 10/01/17 Metoprolol Succinate [Toprol XL] 25 mg PO DAILY 10/01/17 10/01/17 Potassium Chloride [K-Tab ER] 20 meq PO TID 10/01/17 10/01/17 Pregabalin [Lyrica] 150 mg PO BID 10/01/17 10/01/17 Ranitidine HCl [Zantac] 150 mg PO BID 10/01/17 10/01/17 Simvastatin [Zocor] 80 mg PO HS 10/01/17 10/01/17 metFORMIN HCL [Glucophage] 1,000 mg PO BID 10/01/17 10/01/17 predniSONE See Taper PO DIRECTED 10/01/17 10/01/17 Previous Rx's Medication Instructions Recorded Budesonide [Pulmicort] 0.5 mg INHALATION RT-BID #1 nebu 11/23/16 Gabapentin [Neurontin] 300 mg PO BID #30 cap 11/23/16 Ferrous Sulfate [Iron (65 MG 325 mg PO DAILY #30 tab 07/12/17 Elemental)] Metolazone [Zaroxolyn] 5 mg PO DAILY #0 07/22/17 traMADol HCl [Ultram] 50 mg PO Q12H PRN #10 tab 07/22/17 Levofloxacin [Levaquin] 500 mg PO DAILY 5 Days #5 tab 10/03/17 predniSONE 10 mg PO DAILY 16 Days #40 tab 10/03/17 Allergies Allergy/AdvReac Type Severity Reaction Status Date / Time No Known Allergies Allergy Verified 10/07/17 20:29 Review of Systems ROS Statement: Those systems with pertinent positive or pertinent negative responses have been documented in the HPI. ROS Other: All systems not noted in ROS Statement are negative. Past Medical History Past Medical History: Asthma, Chest Pain / Angina, Heart Failure, COPD, Diabetes Mellitus, Hyperlipidemia, Hypertension, Neurologic Disorder, Osteoarthritis (OA), Pneumonia, Respiratory Disorder, Sleep Apnea/CPAP/BIPAP, Syncope, Thyroid Disorder Additional Past Medical History / Comment(s): GOUT, NEUROPATHY-FEET, sleep apnea but cpap not working, has home 02 4 liters n/c atc, past resp failure, hypothyroid,,lt lower lobe nodule-radiation therapy(,unsuccesful bx) History of Any Multi-Drug Resistant Organisms: None Reported Past Surgical History: Section Additional Past Surgical History / Comment(s): LT CARPAL TUNNEL, 3 unsuccessful attempts at lt lobe bx Past Anesthesia/Blood Transfusion Reactions: No Reported Reaction Additional Past Anesthesia/Blood Transfusion Reaction / Comment(s): CLAUSTERPHOBIA Past Psychological History: No Psychological Hx Reported Smoking Status: Former smoker Past Alcohol Use History: None Reported Past Drug Use History: None Reported - Past Family History Father Family Medical History: COPD, Diabetes Mellitus Mother History Unknown: Yes Family Medical History: No Reported History Additional Family Medical History / Comment(s): AT AGE 43 FROM SUICIDE General Exam Limitations: no limitations General appearance: alert, in no apparent distress, obese Head exam: Present: atraumatic, normocephalic Eye exam: Present: normal appearance, PERRL ENT exam: Present: normal exam Neck exam: Present: normal inspection. Absent: tenderness, meningismus Respiratory exam: Present: wheezes, decreased breath sounds, prolonged expiratory. Absent: respiratory distress Cardiovascular Exam: Present: regular rate, normal rhythm GI/Abdominal exam: Present: soft. Absent: distended, tenderness Extremities exam: Present: normal capillary refill. Absent: tenderness, joint swelling Neurological exam: Present: alert, oriented X3, CN II-XII intact. Absent: motor sensory deficit Psychiatric exam: Present: normal affect, normal mood Skin exam: Present: warm, dry, intact. Absent: cyanosis, diaphoretic Course Vital Signs 10/07/17 20:25 Temperature 98.2 F Pulse Rate 81 Respiratory 20 Rate Blood Pressure 98/55 O2 Sat by Pulse 93 L Oximetry Medical Decision Making - Medical Decision Making 52-year-old female presented as a transfer from outside hospital with Q renal failure. Laboratory studies were reviewed, and goes to 99, BUN 117, creatinine 5.6 calcium 8.6, sodium 132, potassium is normal for 0.4, there is mild anion gap acidosis at 18 likely secondary to uremia. Troponin is negative, hemoglobin is 11. Urinalysis obtained prior to transport is negative for signs of infection. Patient is able to urinate in the emergency department approximately 150 mL. She will be continued on IV hydration after receiving 1.5 L normal saline bolus. Nephrology will be placed on consult. Disposition Clinical Impression: Acute renal failure Disposition: ADMITTED IP TO THIS HOSP Condition: Stable Referrals: None,Stated [Primary Care Provider] - 1-2 days Decision to Admit Reason: Admit from EC Decision Date: 10/07/17 Decision Time: 20:42
[2017-10-07] MEDS ORDERED: metFORMIN 500 MG TAB PO SCH (21:00)
[2017-10-07] MEDS: SODIUM CHLORIDE 0.9% 1,000 ML IV SCH (21:02)
[2017-10-08 04:08] LABS: Glucose,Whole Blood 382 mg/dL (75-99)
[2017-10-08] MEDS: SODIUM CHLORIDE 0.9% 1,000 ML IV SCH ×7 (05:54→23:00)
[2017-10-08 06:08] LABS: Basophils % (A) 0 %; Eosinophils % (A) 0 %; HCT 33.3 % (34.0-46.0); HGB 9.8 gm/dL (11.4-16.0); Hypochromasia Marked; Lymphocytes # (A) 0.6 k/uL (1.0-4.8); Lymphocytes % (A) 6 %; MCH 26.5 pg (25.0-35.0); MCHC 29.4 g/dL (31.0-37.0); MCV 90.4 fL (80.0-100.0); Mean Platelet Volume 8.1; Monocytes # (A) 0.4 k/uL (0-1.0); Monocytes % (A) 4 %; Neutrophils # (A) 8.3 k/uL (1.3-7.7); Neutrophils % (A) 88 %; Platelet Count 216 k/uL (150-450); RBC 3.68 m/uL (3.80-5.40); RDW 15.2 % (11.5-15.5); WBC 9.5 k/uL (3.8-10.6)
[2017-10-08 06:09] LABS: Glucose,Whole Blood 295 mg/dL (75-99)
[2017-10-08 06:28] LABS: Albumin 2.8 g/dL (3.5-5.0); Calcium 8.3 mg/dL (8.4-10.2); Potassium 4.7 mmol/L (3.5-5.1); Total Bilirubin 0.1 mg/dL (0.2-1.3); Total Protein 4.9 g/dL (6.3-8.2)
[2017-10-08] MEDS: INSULIN ASPART 100 UNIT/ML 1 ML 10 ML VIAL SQ SCH ×4 (06:35→20:40)
[2017-10-08 06:44] LABS: Phosphorus 8.3 mg/dL (2.5-4.5)
[2017-10-08] MEDS: BUDESONIDE 0.5 MG/2 ML NEBU INHALATION SCH ×2 (08:49→21:09)
[2017-10-08] MEDS: IPRATROPIUM-ALBUTEROL 3 ML NEB INHALATION SCH ×3 (08:49→21:09)
[2017-10-08] MEDS ORDERED: METOPROLOL SUCCINATE (ER) 25 MG TAB.ER.24H PO SCH (09:00)
[2017-10-08] MEDS ORDERED: FAMOTIDINE 20 MG TAB PO SCH (09:00)
[2017-10-08] MEDS ORDERED: INSULIN DETEMIR 100 UNIT/ML 10 ML VIAL SQ SCH (09:00)
--- NOTE | 2017-10-08 10:40 | P.NPCON ---
History of Present Illness - Reason for Consult acute renal failure - History of Present Illness Reason for consultation: Acute kidney injury History of present illness: Patient is a 52-year-old female seen in renal consultation for acute kidney injury. Her baseline creatinine is 1 and was elevated at 5.6 at an outside facility. She did receive IV fluids and was subsequently sent to [facility] for further care. She is currently maintained on normal saline at 100 mL an hour. Patient is quite lethargic and does have underlying history of oxygen dependent COPD. Patient does admit to taking Mobic as needed and states she last took it yesterday. Additionally she was on lisinopril as well as Lasix 40 mg 3 times daily along with metolazone. Her creatinine this morning is 5.1. Her urinalysis from July 2017 was benign. She denies any prior history of kidney disease. Her oral intake the last few days has been quite poor. She denies any chest pain. She denies any hematuria or dysuria. States her urine output has been quite decreased but she did wake this morning. Denies any vomiting or diarrhea. Her blood pressure has also been on the lower side ranging in systolic 90s to 120s. No edema. Vital signs are stable. General: The patient appeared well nourished and normally developed. HEENT: Head exam is unremarkable. Neck is without jugular venous distension. LUNGS: Lungs are clear to auscultation and percussion. Breath sounds decreased. HEART: Rate and Rhythm are regular. First and second heart sounds normal. No murmurs, rubs or gallops. ABDOMEN: Abdominal exam reveals normal bowel sounds. Non-tender and non- distended. No evidence of peritonitis. EXTREMITITES: No clubbing, cyanosis, or edema. Past Medical History Past Medical History: Asthma, Chest Pain / Angina, Heart Failure, COPD, Diabetes Mellitus, Hyperlipidemia, Hypertension, Neurologic Disorder, Osteoarthritis (OA), Pneumonia, Respiratory Disorder, Sleep Apnea/CPAP/BIPAP, Syncope, Thyroid Disorder Additional Past Medical History / Comment(s): GOUT, NEUROPATHY-FEET, sleep apnea bi pap at home, has home 02 4 liters n/c atc, past resp failure, hypothyroid,,lt lower lobe nodule-radiation therapy(,unsuccesful bx) History of Any Multi-Drug Resistant Organisms: None Reported Past Surgical History: Section Additional Past Surgical History / Comment(s): LT CARPAL TUNNEL, 3 unsuccessful attempts at lt lobe bx Past Anesthesia/Blood Transfusion Reactions: No Reported Reaction Additional Past Anesthesia/Blood Transfusion Reaction / Comment(s): CLAUSTERPHOBIA Past Psychological History: No Psychological Hx Reported Smoking Status: Former smoker Past Alcohol Use History: None Reported Additional Past Alcohol Use History / Comment(s): STARTED SMOKING 1975-STOPPED 2007 Past Drug Use History: None Reported - Past Family History Father Family Medical History: COPD, Diabetes Mellitus Mother History Unknown: Yes Family Medical History: No Reported History Additional Family Medical History / Comment(s): AT AGE 43 FROM SUICIDE Medications and Allergies Home Medications Medication Instructions Recorded Confirmed Type Nitroglycerin Sl Tabs [Nitrostat] 0.4 mg SUBLINGUAL Q5M PRN 08/20/14 10/07/17 History Febuxostat [Uloric] 80 mg PO DAILY 05/04/16 10/07/17 History Montelukast [Singulair] 10 mg PO HS 07/18/16 10/07/17 History Budesonide [Pulmicort] 0.5 mg INHALATION RT-BID #1 nebu 11/23/16 10/07/17 Rx Gabapentin [Neurontin] 300 mg PO BID #30 cap 11/23/16 10/07/17 Rx Orphenadrine Citrate 100 mg PO BID 07/09/17 10/07/17 History Ferrous Sulfate [Iron (65 MG 325 mg PO DAILY #30 tab 07/12/17 10/07/17 Rx Elemental)] Metolazone [Zaroxolyn] 5 mg PO DAILY #0 07/22/17 10/07/17 Rx traMADol HCl [Ultram] 50 mg PO Q12H PRN #10 tab 07/22/17 10/07/17 Rx Aspirin 81 mg PO DAILY 10/01/17 10/07/17 History Escitalopram [Lexapro] 10 mg PO HS 10/01/17 10/07/17 History Famotidine [Pepcid] 20 mg PO DAILY 10/01/17 10/07/17 History Furosemide [Lasix] 40 mg PO TID@0700,1300,1700 10/01/17 10/07/17 History Insulin Glargine [Lantus] 120 unit SQ DAILY 10/01/17 10/07/17 History Insulin Lispro [humaLOG Kwikpen] See Protocol SQ AC-TID 10/01/17 10/07/17 History Ipratropium-Albuterol Nebulize 3 ml INHALATION RT-TID 10/01/17 10/07/17 History [Duoneb 0.5 mg-3 mg/3 ml Soln] Lisinopril [Zestril] 5 mg PO DAILY 10/01/17 10/07/17 History Loratadine-Pseudoeph 10-240 mg 1 tab PO DAILY 10/01/17 10/07/17 History [Claritin-D 24 Hr] Meloxicam [Mobic] 15 mg PO DAILY 10/01/17 10/07/17 History Metoprolol Succinate [Toprol XL] 25 mg PO DAILY 10/01/17 10/07/17 History Potassium Chloride [K-Tab ER] 20 meq PO TID 10/01/17 10/07/17 History Pregabalin [Lyrica] 150 mg PO BID 10/01/17 10/07/17 History Ranitidine HCl [Zantac] 150 mg PO BID 10/01/17 10/07/17 History Simvastatin [Zocor] 80 mg PO HS 10/01/17 10/07/17 History metFORMIN HCL [Glucophage] 1,000 mg PO BID 10/01/17 10/07/17 History predniSONE See Taper PO DIRECTED 10/01/17 10/07/17 History Levofloxacin [Levaquin] 500 mg PO DAILY 5 Days #5 tab 10/03/17 10/07/17 Rx Allergies Allergy/AdvReac Type Severity Reaction Status Date / Time No Known Allergies Allergy Verified 10/07/17 20:55 Physical Exam Vitals: Vital Signs Temp Pulse Pulse Resp BP BP Pulse Ox 10/08/17 08:59 90 10/08/17 08:49 90 18 10/08/17 04:00 98.8 F 76 21 105/53 90 L 10/08/17 00:00 98.0 F 95 21 111/64 91 L 10/07/17 21:19 97.4 F L 89 22 124/58 96 10/07/17 21:03 98.0 F 90 20 111/64 91 L 10/07/17 20:38 20 10/07/17 20:25 98.2 F 81 20 98/55 93 L Intake and Output 10/07/17 10/08/17 10/08/17 22:59 06:59 14:59 Intake Total 200 Output Total 300 Balance 200 -300 Intake: Oral 200 Output: Urine 300 Other: Weight 167 kg 168.9 kg Results - Lab Results Most recent lab results Calcium 8.3 mg/dL (8.4-10.2) L 10/08/17 05:24 Phosphorus 8.3 mg/dL (2.5-4.5) H* 10/08/17 05:24 Magnesium 2.2 mg/dL (1.6-2.3) 10/08/17 05:24 10/08/17 05:24 10/08/17 05:24 Assessment and Plan Plan: Assessment: #1. Acute kidney injury secondary to ischemic ATN secondary to hypotension, nonsteroidals and diuresis. Creatinine was 5.6 at an outside facility and is 5.1 today. Urinalysis from July 2017 was benign. Baseline creatinine is near 1. #2. Hyponatremia secondary to acute kidney injury. #3. Home oxygen dependent COPD. #4. Insulin-dependent diabetes mellitus. #5. Hypotension due to diuresis. #6. Hyperphosphatemia secondary to acute kidney injury. Plan: Continue normal saline at 100 mL an hour. Check urinalysis. Check renal ultrasound. Check postvoid residual to make sure no underlying urinary retention. Avoid nephrotoxic agents and hypotensive episodes. Continue to monitor renal function and urine output closely. Repeat electrolytes in the morning. Her current blood pressure is 78/40. I will give her 2 L IV fluid bolus 0.9 saline. Check cortisol level. Thank you for the consultation. I will continue to follow the patient with you during her hospital stay.
[2017-10-08] MEDS: ASPIRIN 81 MG PO SCH (12:17)
[2017-10-08 12:28] LABS: Glucose,Whole Blood 182 mg/dL (75-99)
--- NOTE | 2017-10-08 12:36 | US ---
EXAMINATION TYPE: US kidneys/renal and bladder DATE OF EXAM: 10/08/2017 COMPARISON: NONE CLINICAL HISTORY: amparo; left lung nodule; patient sleeping at bedside US EXAM MEASUREMENTS: Right Kidney: 12.3 x 6.7 x 5.6 cm Left Kidney: 12.0 x 5.3 x 6.3 cm Post Void Residual Volume: not assessed on inpatient Right Kidney: No hydronephrosis or masses seen Left Kidney: No hydronephrosis or masses seen; lobular mid cortex Bladder: partially distended Bilateral Jets seen: not seen on partially distended bladder on inpatient IMPRESSION: NORMAL RENAL ULTRASOUND.
[2017-10-08 13:36] LABS: Glucose,Whole Blood 211 mg/dL (75-99)
[2017-10-08 14:19] LABS: Amorphous Sediment,Urine Occasional /hpf; Appearance,Urine Cloudy (Clear); Bacteria,Urine Rare /hpf; Bilirubin,Urine Negative (Negative); Blood,Urine Negative (Negative); Color,Urine Yellow; Glucose,Urine (UA) Negative (Negative); Hyaline Casts,Urine 3 /lpf (0-2); Ketones,Urine Negative (Negative); Leukocyte Esterase,Urine Negative (Negative); Mucus,Urine Rare /hpf; Protein,Urine Trace (Negative); RBC,Urine 1 /hpf (0-5); Specific Gravity,Urine 1.012 (1.001-1.035); Squamous Epithelial Cell,Urine <1 /hpf (0-4); Urobilinogen,Urine <2.0 mg/dL (<2.0); WBC,Urine 1 /hpf (0-5)
[2017-10-08] MEDS ORDERED: NOREPINEPHRIN 4 MG-0.9% NS PMX 4 MG/250 ML ML IV ONE (14:21)
[2017-10-08 15:10] LABS: ABG Base Excess -2.1 mmol/L; ABG HCO3 25 mmol/L (21-25); ABG Oxygen Saturation 88.9 % (94-97); ABG PCO2 60 mmHg (35-45); ABG PH 7.23 (7.35-7.45); ABG PO2 60 mmHg (83-108); ABG TCO2 27 mmol/L (19-24)
--- NOTE | 2017-10-08 15:27 | P.CNPUL ---
History of Present Illness Consult date: 10/08/17 Reason for consult: other (Hypovolemic shock and acute kidney injury) Chief complaint: Renal failure History of present illness: This is a 52-year-old female quite familiar to my service, patient is known to have history of chronic hypercapnic respiratory failure secondary to COPD, obesity hypoventilation syndrome, obstructive sleep apnea syndrome, and morbid obesity. Patient was recently admitted to the hospital with acute on chronic hypercapnic respiratory failure eventually discharged on BiPAP, bronchodilators , diuretics. Patient was seen at [facility] last night with generalized weakness, near syncope, and extremely poor urine output for the last several days. Patient has been on an extensive dose of diuretics, she takes Lasix 40 mg 3 times a day, she is also on lisinopril, and she takes Mobic on a daily basis. Upon evaluation in the ER at [place], patient was noted to be hypotensive, there was significant renal failure with creatinine of 5.6, and her baseline creatinine on the last admission was 1. Patient was given fluid boluses, placed on IV fluid at 100 mL/h, transferred to [facility], and arrangements were made for her to be admitted last night to a monitor bed on . However in spite of fluids given, patient remains hypotensive, transferred to the ICU and I was asked to see her on consultation. Upon evaluating the patient she had no venous access, hence I had to place a right femoral triple-lumen catheter and a right radial arterial line. Patient was placed on fluid boluses again and started on norepinephrine. Clinically the patient seems to have sustained a significant hypovolemic shock and acute renal failure with profound dehydration, worsened by the fact that she takes Mobic and she is also on lisinopril. Patient is lethargic, denies any shortness of breath, no cough no wheezing no chest pain no headache no blurred vision no dizziness no nausea no vomiting no abdominal pain no melena no hematemesis is no dysuria and no frequency no urgency as a matter of fact she states that her urine output has been very minimal for the last couple of days. Review of Systems 14 point review of systems were obtained, please refer to pertinent positives and negatives as per HPI. [place]on remaining systems are negative Past Medical History Past Medical History: Asthma, Chest Pain / Angina, Heart Failure, COPD, Diabetes Mellitus, Hyperlipidemia, Hypertension, Neurologic Disorder, Osteoarthritis (OA), Pneumonia, Respiratory Disorder, Sleep Apnea/CPAP/BIPAP, Syncope, Thyroid Disorder Additional Past Medical History / Comment(s): GOUT, NEUROPATHY-FEET, sleep apnea bi pap at home, has home 02 4 liters n/c atc, past resp failure, hypothyroid,,lt lower lobe nodule-radiation therapy(,unsuccesful bx) History of Any Multi-Drug Resistant Organisms: None Reported Past Surgical History: Section Additional Past Surgical History / Comment(s): LT CARPAL TUNNEL, 3 unsuccessful attempts at lt lobe bx Past Anesthesia/Blood Transfusion Reactions: No Reported Reaction Additional Past Anesthesia/Blood Transfusion Reaction / Comment(s): CLAUSTERPHOBIA Past Psychological History: No Psychological Hx Reported Smoking Status: Former smoker Past Alcohol Use History: None Reported Additional Past Alcohol Use History / Comment(s): STARTED SMOKING 1975-STOPPED 2007 Past Drug Use History: None Reported - Past Family History Father Family Medical History: COPD, Diabetes Mellitus Mother History Unknown: Yes Family Medical History: No Reported History Additional Family Medical History / Comment(s): AT AGE 43 FROM SUICIDE Medications and Allergies Home Medications Medication Instructions Recorded Confirmed Type Nitroglycerin Sl Tabs [Nitrostat] 0.4 mg SUBLINGUAL Q5M PRN 08/20/14 10/07/17 History Febuxostat [Uloric] 80 mg PO DAILY 05/04/16 10/07/17 History Montelukast [Singulair] 10 mg PO HS 07/18/16 10/07/17 History Budesonide [Pulmicort] 0.5 mg INHALATION RT-BID #1 nebu 11/23/16 10/07/17 Rx Gabapentin [Neurontin] 300 mg PO BID #30 cap 11/23/16 10/07/17 Rx Orphenadrine Citrate 100 mg PO BID 07/09/17 10/07/17 History Ferrous Sulfate [Iron (65 MG 325 mg PO DAILY #30 tab 07/12/17 10/07/17 Rx Elemental)] Metolazone [Zaroxolyn] 5 mg PO DAILY #0 07/22/17 10/07/17 Rx traMADol HCl [Ultram] 50 mg PO Q12H PRN #10 tab 07/22/17 10/07/17 Rx Aspirin 81 mg PO DAILY 10/01/17 10/07/17 History Escitalopram [Lexapro] 10 mg PO HS 10/01/17 10/07/17 History Famotidine [Pepcid] 20 mg PO DAILY 10/01/17 10/07/17 History Furosemide [Lasix] 40 mg PO TID@0700,1300,1700 10/01/17 10/07/17 History Insulin Glargine [Lantus] 120 unit SQ DAILY 10/01/17 10/07/17 History Insulin Lispro [humaLOG Kwikpen] See Protocol SQ AC-TID 10/01/17 10/07/17 History Ipratropium-Albuterol Nebulize 3 ml INHALATION RT-TID 10/01/17 10/07/17 History [Duoneb 0.5 mg-3 mg/3 ml Soln] Lisinopril [Zestril] 5 mg PO DAILY 10/01/17 10/07/17 History Loratadine-Pseudoeph 10-240 mg 1 tab PO DAILY 10/01/17 10/07/17 History [Claritin-D 24 Hr] Meloxicam [Mobic] 15 mg PO DAILY 10/01/17 10/07/17 History Metoprolol Succinate [Toprol XL] 25 mg PO DAILY 10/01/17 10/07/17 History Potassium Chloride [K-Tab ER] 20 meq PO TID 10/01/17 10/07/17 History Pregabalin [Lyrica] 150 mg PO BID 10/01/17 10/07/17 History Ranitidine HCl [Zantac] 150 mg PO BID 10/01/17 10/07/17 History Simvastatin [Zocor] 80 mg PO HS 10/01/17 10/07/17 History metFORMIN HCL [Glucophage] 1,000 mg PO BID 10/01/17 10/07/17 History predniSONE See Taper PO DIRECTED 10/01/17 10/07/17 History Levofloxacin [Levaquin] 500 mg PO DAILY 5 Days #5 tab 10/03/17 10/07/17 Rx Allergies Allergy/AdvReac Type Severity Reaction Status Date / Time No Known Allergies Allergy Verified 10/07/17 20:55 Physical Exam Vitals: Vital Signs Temp Pulse Pulse Resp BP BP Pulse Ox 10/08/17 13:02 82 10/08/17 12:52 82 18 10/08/17 12:00 98 F 92 22 73/33 95 10/08/17 10:30 98.1 F 94 22 78/40 92 L 10/08/17 08:59 90 10/08/17 08:49 90 18 10/08/17 08:00 94 20 10/08/17 04:00 98.8 F 76 21 105/53 90 L 10/08/17 00:00 98.0 F 95 21 111/64 91 L 10/07/17 21:19 97.4 F L 89 22 124/58 96 10/07/17 21:03 98.0 F 90 20 111/64 91 L 10/07/17 20:38 20 10/07/17 20:25 98.2 F 81 20 98/55 93 L Intake and Output 10/08/17 10/08/17 10/08/17 06:59 14:59 22:59 Intake Total 2000 Output Total 300 Balance -300 2000 Intake: Intake, IV Titration 2000 Amount Sodium Chloride 0.9% 1, 1000 000 ml @ 100 mls/hr IV . Q10H SARAH Rx#:[id number] Sodium Chloride 0.9% 1, 1000 000 ml @ 999 mls/hr IV . Q1H1M SARAH Rx#:[id number] Output: Urine 300 Other: Weight 168.9 kg GENERAL EXAM: Morbidly obese. Slightly lethargic, in no form of respiratory distress. HEAD: Normocephalic. EYES: Normal reaction of pupils, equal size. NOSE: Clear with pink turbinates. THROAT: There is crowding the posterior pharynx. No erythema or exudates. Dry mucous membranes were noted. NECK: Short. No masses, no JVD. CHEST: No chest wall deformity. LUNGS: Equal air entry with no crackles, wheeze, rhonchi or dullness. CVS: S1 and S2 normal with no audible murmur, regular rhythm. ABDOMEN: Obese, normal bowel sounds, no guarding or rigidity. Areas of ecchymosis noted in the abdominal wall related to heparin subcu given on her last hospitalization SPINE: No scoliosis or deformity SKIN: No rashes CENTRAL NERVOUS SYSTEM: No focal deficits, tone is normal in all 4 extremities. Patient is slightly lethargic but arousable, and follows simple instructions. EXTREMITIES: There is no peripheral edema. No clubbing, no cyanosis. Peripheral pulses are intact. Results - Laboratory Findings CBC and BMP: 10/08/17 05:24 10/08/17 05:24 ABG ABG pH 7.23 (7.35-7.45) L 10/08/17 15:04 ABG pCO2 60 mmHg (35-45) H 10/08/17 15:04 ABG pO2 60 mmHg (83-108) L 10/08/17 15:04 ABG O2 Saturation 88.9 % (94-97) L 10/08/17 15:04 Abnormal lab findings: Abnormal Labs 10/08/17 10/08/17 10/08/17 03:55 05:24 05:24 RBC 3.68 L Hgb 9.8 L Hct 33.3 L MCHC 29.4 L Neutrophils # 8.3 H Lymphocytes # 0.6 L ABG pH ABG pCO2 ABG pO2 ABG Total CO2 ABG O2 Saturation Sodium 132 L Chloride 89 L Carbon Dioxide 31 H BUN 123 H* Creatinine 5.10 H* Glucose 303 H POC Glucose (mg/dL) 382 H Calcium 8.3 L Phosphorus 8.3 H* Total Bilirubin 0.1 L AST 10 L Total Protein 4.9 L Albumin 2.8 L Urine Appearance Urine Protein Amorphous Sediment Urine Bacteria Hyaline Casts Urine Mucus 10/08/17 10/08/17 10/08/17 06:07 12:01 13:33 RBC Hgb Hct MCHC Neutrophils # Lymphocytes # ABG pH ABG pCO2 ABG pO2 ABG Total CO2 ABG O2 Saturation Sodium Chloride Carbon Dioxide BUN Creatinine Glucose POC Glucose (mg/dL) 295 H 182 H 211 H Calcium Phosphorus Total Bilirubin AST Total Protein Albumin Urine Appearance Urine Protein Amorphous Sediment Urine Bacteria Hyaline Casts Urine Mucus 10/08/17 10/08/17 13:41 15:04 RBC Hgb Hct MCHC Neutrophils # Lymphocytes # ABG pH 7.23 L ABG pCO2 60 H ABG pO2 60 L ABG Total CO2 27 H ABG O2 Saturation 88.9 L Sodium Chloride Carbon Dioxide BUN Creatinine Glucose POC Glucose (mg/dL) Calcium Phosphorus Total Bilirubin AST Total Protein Albumin Urine Appearance Cloudy H Urine Protein Trace H Amorphous Sediment Occasional H Urine Bacteria Rare H Hyaline Casts 3 H Urine Mucus Rare H Assessment and Plan Assessment: Impression: 1 acute hypovolemic shock with hypotension secondary to diuretics and poor oral intake. 2 acute kidney injury secondary to ischemic tubular necrosis and hypotension as well as nonsteroidal anti-inflammatory drugs and diuretics. 3 hyponatremia secondary to acute kidney injury 4 hypotension secondary to hypovolemia and diuresis 5 history of insulin-dependent diabetes 6 multiple comorbidities including underlying COPD, chronic hypoxic and hypercapnic respiratory failure, morbid obesity, obesity hypoventilation syndrome, obstructive sleep apnea syndrome, diabetic neuropathy, hypertension, hyperlipidemia, osteoarthritis, history of gout and history of hypothyroidism. Recommendation: Patient will be given more fluid boluses, IV fluid will be increased, for low blood pressure will start on norepinephrine for now, and we' ll continue to closely monitor. Patient is being followed by nephrology, will place on GI and DVT prophylaxis, continue on DuoNeb, and monitor blood pressure closely. Prognosis is definitely guarded at this point. Lines including a triple-lumen catheter and arterial line were placed. Time with Patient: Greater than 30
--- NOTE | 2017-10-08 17:00 | PCN ---
PROCEDURE NOTE OPERATIVE REPORT: Placement of a right femoral triple-lumen catheter. PREOPERATIVE DIAGNOSIS: Hypotension secondary to profound hypovolemic shock. POSTOPERATIVE DIAGNOSIS: Hypotension secondary to profound hypovolemic shock. ANESTHESIA USED: 2 mL of 1% lidocaine. PROCEDURE: The patient was placed in a supine position. The area of the right groin was prepared in a sterile fashion and drapes were applied. The right femoral vein was cannulated easily after locally anesthetizing the area and I was able to place a guidewire easily. Dilator was placed over the guidewire and the area was dilated. Then the dilator was removed and a triple-lumen catheter was inserted over the guidewire and the guidewire of the guidewire was removed. Good blood flow was noted in the 3 different ports of the triple-lumen catheter. No evidence of any immediate complications. The triple- lumen catheter was connected to IV fluid and a norepinephrine drip. MMODL / IJN: [id number] /
[2017-10-08 18:22] LABS: Glucose,Whole Blood 285 mg/dL (75-99)
[2017-10-08] MEDS ORDERED: traMADol 50 MG TAB PO PRN (18:47)
[2017-10-08] MEDS ORDERED: NITROGLYCERIN SL TABS 0.4 MG TAB SUBLINGUAL PRN (18:47)
[2017-10-08 20:08] LABS: Glucose,Whole Blood 330 mg/dL (75-99)
[2017-10-08] MEDS: GABAPENTIN 300 MG CAP PO SCH (20:32)
[2017-10-08] MEDS: ESCITALOPRAM 10 MG TAB PO SCH (20:32)
[2017-10-08] MEDS: CYCLOBENZAPRINE 10 MG TAB PO SCH (20:43)
[2017-10-08] MEDS: MONTELUKAST 10 MG TAB PO SCH (20:43)
[2017-10-08 21:06] LABS: ABG Base Excess -2.5 mmol/L; ABG HCO3 25 mmol/L (21-25); ABG Oxygen Saturation 98.4 % (94-97); ABG PCO2 63 mmHg (35-45); ABG PH 7.21 (7.35-7.45); ABG PO2 110 mmHg (83-108); ABG TCO2 27 mmol/L (19-24)
--- NOTE | 2017-10-08 21:06 | HP ---
HISTORY AND PHYSICAL CHIEF COMPLAINT: Renal failure. HISTORY OF PRESENT ILLNESS: This 52-year-old woman with a past medical history of multiple medical problems, including history of asthma, COPD, CHF, diabetes, hypertension, hyperlipidemia, apparently followed by Dr. Dimas in the outpatient setting, was previously admitted for COPD acute exacerbation. Apparently patient is using Mobic for pain relief, probably more significantly. The baseline creatinine is stable at 1.7. The patient presented elsewhere with renal failure and creatinine was found to be 5.6. The patient is transferred to [facility]. The patient also has chronic hypoxic hypercapnic respiratory failure. The possibility of obesity hypoventilation syndrome is considered. Patient is currently on BiPAP. The BiPAP settings are 12/14 and 50% FiO2. The patient is saturating at 91% at this time. The patient also received Lasix 40 mg twice daily. The patient is being closely monitored at this time. IV fluids initiated. Nephrology consultation under way, too. There is no history of any fever, rigors. No history of headache, loss of consciousness, seizures. PAST MEDICAL HISTORY: Asthma, COPD, CHF, diabetes mellitus, hypertension, hyperlipidemia, history of DJD, history pneumonia, history of gout, history of neuropathy. HOME MEDICATIONS: 1. Zocor 80 mg q.h.s. 2. Nitrostat 0.4 sublingual . 3. Singular 10 mg. 4. Lexapro 10 mg. 5. Ultram 50 mg b.i.d. 6. Prednisone taper. 7. Glucophage 1000 mg b.i.d. 8. Zantac 150 mg b.i.d. 9. Lyrica 150 mg b.i.d. 11.Orphenadrine 100 mg p.o. b.i.d. 12.Toprol-XL 25 mg p.o. daily. 13.Zaroxolyn 5 mg p.o. daily. 14.Mobic 15 mg p.o. daily. 15.Sudafed 10/240, 1 p.o. daily. 16.Zestril 5 mg p.o. daily. 17.Levaquin 500 mg p.o. daily .. 18.DuoNeb t.i.d. 19.Insulin lispro a.c. t.i.d. 20.Lantus 120 units subcu daily. 21.Neurontin 300 mg p.o. b.i.d. 22.Lasix 40 mg t.i.d. 07:00, 13:00 and 17:00. 23.Iron sulfate 325 mg p.o. daily. 24.Uloric 80 mg p.o. daily. 25.Pepcid 20 mg p.o. daily. 26.Pulmicort 0.5 b.i.d. 27.Aspirin 81 mg p.o. daily. ALLERGIES: None. FAMILY HISTORY: History of COPD, diabetes mellitus and suicide in the family. SOCIAL HISTORY: Previous history of smoking. No history of current smoking alcohol intake. REVIEW OF SYSTEMS: Unable to be taken. The patient is on BiPAP at this time. PHYSICAL EXAM: Pulse is 96, blood pressure 88/43, respirations 24, temperature normal, pulse ox 97% on BiPAP. BiPAP settings are noted. HEENT: Conjunctivae normal. Oral mucosa moist. NECK: Obese. CARDIOVASCULAR: S1, S2 muffled. RESPIRATORY: Breath sounds diminished in the bases. A few scattered rhonchi and crackles. ABDOMEN: Soft, obese, nontender. No mass palpable. LEGS: Mild leg edema. NERVOUS SYSTEM: Higher functions as mentioned earlier. Moves all 4 limbs. No focal motor or sensory deficits. LYMPHATIC: No lymphadenopathy in neck or axillae. SKIN: No ulcer, rash or bleeding. LABS: At this time shows ABGs: pH is 7.23, pCO2 is 60 and PO2 is 60. Otherwise, hemoglobin 9.8 and creatinine is 5.10, BUN is 123 and potassium is 4.7. ASSESSMENT: 1. Acute renal failure possibly, prerenal renal failure and acute tubular necrosis, multifactorial. 2. Chronic obstructive pulmonary disease acute exacerbation with acute on chronic hypoxic hypercarbic respiratory failure. 3. Acute respiratory acidosis. 4. Hyponatremia. 5. Super morbid obesity with BMI of 56.6. 6. Obesity hypoventilation syndrome. 7. Asthma, chronic obstructive pulmonary disease/. 8. History of congestive heart failure. 9. Diabetes mellitus type 2. 10.Hypertension. 11.Hyperlipidemia. 12.Degenerative joint disease. 13.History of pneumonia. 14.Sleep apnea. 15.History of gout. 16.History of peripheral neuropathy. 17.History of chronic hypoxic respiratory failure. 18.Claustrophobia. 19.Remote history of nicotine dependence. 20.FULL CODE. RECOMMENDATIONS AND DISCUSSION: In this 52-year-old woman who presented with multiple complex medical issues, we will monitor the patient closely, continue with the current medical management and symptomatic treatment. Continue the bronchodilators. Continue the BiPAP. Will also initiate empiric antibiotics. Will hold the diuretics and continue with IV fluids. Nephrology and Pulmonology have consulted. Also recommend Cardiology consultation and further evaluation as well. Repeat labs have been initiated. I have also done the medication reconciliation. As mentioned earlier, will hold some of the medications. I would also hold Mobic and diuretics as well as [place] inhibitors. Use pain medications sparingly. Accu-Cheks a.c. and at bedtime, scale also. DVT prophylaxis. Proton pump inhibitors. Prognosis guarded because of multiple complex medical issues. Further recommendations to follow. MMODL / IJN: [id number] / TOSIN
[2017-10-08] MEDS: NOREPINEPHRIN 16 MG-0.9%NS PMX 16 MG/250 ML ML IV SCH (21:19)
[2017-10-08] MEDS: PREGABALIN 75 MG CAP PO SCH (21:24)
[2017-10-08 22:31] LABS: ABG Base Excess -1.3 mmol/L; ABG HCO3 27 mmol/L (21-25); ABG Oxygen Saturation 95.5 % (94-97); ABG PCO2 65 mmHg (35-45); ABG PH 7.22 (7.35-7.45); ABG PO2 80 mmHg (83-108); ABG TCO2 29 mmol/L (19-24)
[2017-10-08] MEDS ORDERED: SODIUM BICARB 8.4% 50 ML SYR (1 MEQ/ML) IV ONE (22:52)
[2017-10-08] MEDS ORDERED: INSULIN REGULAR 100 UNIT/ML VIAL IV ONE (22:53)
[2017-10-08] MEDS ORDERED: HYDROCORTISONE SUCCINATE 100 MG/2 ML VIAL IV STA (22:54)
[2017-10-08] MEDS ORDERED: LACTATED RINGERS 1,000 ML IV SCH (23:00)
[2017-10-08] MEDS ORDERED: INSULIN REGULAR BOLUS (FROM DRIP BAG) IV PRN (23:10)
[2017-10-08 23:27] LABS: ABG Base Excess -0.1 mmol/L; ABG HCO3 28 mmol/L (21-25); ABG PCO2 68 mmHg (35-45); ABG PH 7.22 (7.35-7.45); ABG PO2 70 mmHg (83-108); ABG TCO2 30 mmol/L (19-24)
--- NOTE | 2017-10-08 23:27 | XR ---
EXAMINATION TYPE: XR chest 1V portable DATE OF EXAM: 10/08/2017 COMPARISON: Yesterday HISTORY: Hypertension. Chest pain TECHNIQUE: Single frontal view of the chest is obtained. FINDINGS: This coarsening of interstitial markings. There are large central pulmonary arteries. Thor acic aorta is atheromatous. There are chest leads. Bony thorax appears intact. IMPRESSION: Prominent pulmonary arteries could relate to pulmonary hypertension. Atheromatous aorta. No gross heart failure. Increased lung markings at the lung bases is the same or slightly increased compared to exam yesterday and could relate to mild pneumonia and pulmonary fibrosis.
--- NOTE | 2017-10-08 23:31 | PCN ---
PROCEDURE NOTE OPERATIVE REPORT: Placement of the right radial arterial line. PREOPERATIVE DIAGNOSIS: Hypotension and hypovolemic shock. POSTOPERATIVE DIAGNOSIS: Hypotension and hypovolemic shock. ANESTHESIA USED: None deployed. PROCEDURE: The right wrist was prepared in a sterile fashion and drapes were applied. The right radial artery was palpated, easily cannulated, and a guidewire was placed. A Cook catheter was inserted over the guidewire, and the guidewire was removed. Good blood flow, good waveform were noted. No evidence of any immediate complications. Line was secured using 3.0 silk sutures. MMODL / IJN: [id number] /
[2017-10-08] MEDS ORDERED: PROPOFOL 100 ML IV ONE (23:35)
--- NOTE | 2017-10-09 00:10 | XR ---
EXAMINATION TYPE: XR chest 1V portable DATE OF EXAM: 10/09/2017 COMPARISON: Today HISTORY: Intubation TECHNIQUE: Single frontal view of the chest is obtained. FINDINGS: Endotracheal tube appears in good position and is 5 cm from the sherwin. Nasogastric tube a ppears in good position. There is no heart failure. There is some coarsening of the lung markings at the lung bases. There are chest leads. IMPRESSION: Tubing appears in good position.
[2017-10-09 00:16] LABS: Glucose,Whole Blood 239 mg/dL (75-99)
[2017-10-09] MEDS: INSULIN REGULAR 100 UNIT in SODIUM CHLORIDE 0.9% 100 ML IV SCH ×2 (00:19→21:37)
[2017-10-09 00:51] LABS: Glucose,Whole Blood 252 mg/dL (75-99)
[2017-10-09] MEDS: cefTRIAXone IN SWFI 1,000 MG/10 ML SYRINGE IVP SCH ×2 (00:52→21:35)
[2017-10-09] MEDS: HEPARIN SODIUM,PORCINE 5,000 UNIT/ML 1 ML VIAL SQ SCH ×4 (00:52→23:55)
[2017-10-09] MEDS: SODIUM CHLORIDE 0.9% 1,000 ML IV SCH ×5 (00:52→21:52)
[2017-10-09] MEDS ORDERED: PROPOFOL 100 ML IV ONE (01:14)
[2017-10-09 01:19] LABS: Glucose,Whole Blood 250 mg/dL (75-99)
[2017-10-09 02:10] LABS: Glucose,Whole Blood 226 mg/dL (75-99)
[2017-10-09] MEDS: PROPOFOL 1,000 MG in EMPTY BAG 1 BAG IV SCH ×10 (03:05→23:14)
[2017-10-09 03:09] LABS: Glucose,Whole Blood 224 mg/dL (75-99)
[2017-10-09 04:05] LABS: Glucose,Whole Blood 197 mg/dL (75-99)
[2017-10-09 05:09] LABS: Glucose,Whole Blood 186 mg/dL (75-99)
[2017-10-09 06:10] LABS: Glucose,Whole Blood 183 mg/dL (75-99)
[2017-10-09 06:42] LABS: Basophils % (A) 0 %; Eosinophils # (A) 0.1 k/uL (0-0.7); Eosinophils % (A) 1 %; HCT 36.2 % (34.0-46.0); HGB 10.9 gm/dL (11.4-16.0); Hypochromasia Marked; Lymphocytes # (A) 0.8 k/uL (1.0-4.8); Lymphocytes % (A) 8 %; MCH 27.2 pg (25.0-35.0); MCHC 30.2 g/dL (31.0-37.0); MCV 89.9 fL (80.0-100.0); Mean Platelet Volume 8.3; Monocytes # (A) 0.5 k/uL (0-1.0); Monocytes % (A) 4 %; Neutrophils # (A) 8.7 k/uL (1.3-7.7); Neutrophils % (A) 86 %; Platelet Count 285 k/uL (150-450); RBC 4.02 m/uL (3.80-5.40); RDW 15.6 % (11.5-15.5); WBC 10.2 k/uL (3.8-10.6)
[2017-10-09 06:57] LABS: Calcium 8.7 mg/dL (8.4-10.2); Phosphorus 4.3 mg/dL (2.5-4.5)
--- NOTE | 2017-10-09 06:58 | XR ---
EXAMINATION TYPE: XR chest 1V portable DATE OF EXAM: 10/09/2017 HISTORY: Tube placement. REFERENCE: Previous study dated 10/08/2017. FINDINGS: The patient is ET tube and NG tube remain in place, unchanged in appearance. There is stable widening of the mediastinum. The heart is enlarged. There is mild vascular congestion . I could not exclude some degree of edema. No definite pleural fluid is seen. IMPRESSION: FINDINGS CONSISTENT WITH MILD PULMONARY EDEMA.
[2017-10-09] MEDS: BUDESONIDE 0.5 MG/2 ML NEBU INHALATION SCH ×2 (07:06→19:14)
[2017-10-09] MEDS: IPRATROPIUM-ALBUTEROL 3 ML NEB INHALATION SCH ×3 (07:06→19:14)
[2017-10-09 07:09] LABS: Glucose,Whole Blood 164 mg/dL (75-99)
[2017-10-09 07:14] LABS: Potassium 4.4 mmol/L (3.5-5.1)
[2017-10-09 08:03] LABS: Glucose,Whole Blood 158 mg/dL (75-99)
[2017-10-09] MEDS: PANTOPRAZOLE 40 MG/10 ML VIAL IV SCH (08:05)
[2017-10-09] MEDS: GABAPENTIN 300 MG CAP PO SCH ×2 (08:06→21:36)
[2017-10-09] MEDS: ALLOPURINOL 100 MG TAB PO SCH (08:06)
[2017-10-09] MEDS: CYCLOBENZAPRINE 10 MG TAB PO SCH ×2 (08:06→21:36)
[2017-10-09] MEDS: FERROUS SULFATE 325 MG TAB PO SCH (08:06)
[2017-10-09] MEDS: ASPIRIN 81 MG PO SCH (08:06)
[2017-10-09] MEDS: CHLORHEXIDINE GLUCONATE 15 ML CUP MUCOUS MEM SCH ×2 (08:06→21:35)
[2017-10-09] MEDS: PREGABALIN 75 MG CAP PO SCH ×2 (08:07→23:14)
[2017-10-09] MEDS: LORATADINE-PSEUDOEPH 5-120 MG 1 EACH TAB.ER.12H PO SCH ×2 (08:07→21:36)
[2017-10-09] MEDS: NOREPINEPHRIN 16 MG-0.9%NS PMX 16 MG/250 ML ML IV SCH (08:07)
[2017-10-09 08:28] LABS: ABG Base Excess 2.4 mmol/L; ABG HCO3 29 mmol/L (21-25); ABG Oxygen Saturation 94.8 % (94-97); ABG PCO2 61 mmHg (35-45); ABG PH 7.29 (7.35-7.45); ABG PO2 76 mmHg (83-108); ABG TCO2 31 mmol/L (19-24)
[2017-10-09] MEDS ORDERED: SODIUM CHLORIDE 0.9% 1,000 ML IV ONE (09:19)
[2017-10-09 09:27] LABS: Glucose,Whole Blood 143 mg/dL (75-99)
[2017-10-09 10:07] LABS: Glucose,Whole Blood 131 mg/dL (75-99)
--- NOTE | 2017-10-09 10:56 | P.PN ---
Subjective Patient is seen in follow-up for acute kidney injury. Her creatinine was greater than 5 on admission and is down to 2.2 today. She is nonoliguric. She was transferred to the intensive care unit yesterday due to respiratory distress and is currently intubated and sedated. She is on 25 mics of levofed. She's currently receiving normal saline at 200 mL an hour. She did receive 3 L of IV fluid bolus yesterday. Vital signs are stable. General: The patient appeared well nourished and normally developed. Currently intubated. HEENT: Head exam is unremarkable. Neck is without jugular venous distension. LUNGS: Lungs are clear to auscultation and percussion. Breath sounds decreased. HEART: Rate and Rhythm are regular. First and second heart sounds normal. No murmurs, rubs or gallops. ABDOMEN: Abdominal exam reveals normal bowel sounds. Non-tender and non- distended. No evidence of peritonitis. EXTREMITITES: No clubbing, cyanosis, or edema. Objective - Vital Signs Vital signs: Vital Signs Temp 98.9 F 10/09/17 08:00 Pulse 80 10/09/17 10:00 Resp 17 10/09/17 10:00 BP 64/48 10/08/17 15:15 Pulse Ox 95 10/09/17 10:00 Intake & Output 10/08/17 10/09/17 10/09/17 18:59 06:59 18:59 Intake Total 3500 2990.081 1698.457 Output Total 1050 3600 1610 Balance 2450 -609.919 88.457 Weight 180.3 kg Intake: IV 1500 2600 1509 0.9 6508 874 3321 Lactated Ringers 1,000 ml 1000 @ 999 mls/hr IV .Q1H1M SARAH Rx#:[id number] Sodium Chloride 0.9% 1, 1400 500 000 ml @ 200 mls/hr IV . Q5H SARAH Rx#:[id number] pressure bag 9 Intake, IV Titration 1999 390.081 189.457 Amount Insulin Regular 100 unit 40.148 16.123 In Sodium Chloride 0.9% 100 ml @ Per Protocol IV .Q0M SARAH Rx#:[id number] Norepinephrin 16 mg-0.9% 250.000 Ns Pmx 16 mg In 250 ml @ Titrate IV .Q0M SARAH Rx#: [id number] Propofol 1,000 mg In 99.933 173.334 Empty Bag 1 bag @ Titrate IV .Q0M SARAH Rx#: [id number] Sodium Chloride 0.9% 1, 1000 000 ml @ 200 mls/hr IV . Q5H SARAH Rx#:[id number] Sodium Chloride 0.9% 1, 1000 000 ml @ 999 mls/hr IV . Q1H1M SARAH Rx#:[id number] Output: Urine 1050 3600 1610 Other: Voiding Method Indwelling Catheter Indwelling Catheter Indwelling Catheter ABP, PAP, CO, CI - Last Documented Arterial Blood Pressure 110/50 - Labs CBC & Chem 7: 10/09/17 06:30 10/09/17 06:30 Labs: Abnormal Lab Results - Last 24 Hours (Table) 10/08/17 10/08/17 10/08/17 Range/Units 12:01 13:33 13:41 Hgb (11.4-16.0) gm/dL MCHC (31.0-37.0) g/dL RDW (11.5-15.5) % Neutrophils # (1.3-7.7) k/uL Lymphocytes # (1.0-4.8) k/uL ABG pH (7.35-7.45) ABG pCO2 (35-45) mmHg ABG pO2 (83-108) mmHg ABG HCO3 (21-25) mmol/L ABG Total CO2 (19-24) mmol/L ABG O2 Saturation (94-97) % Carbon Dioxide (22-30) mmol/L BUN (7-17) mg/dL Creatinine (0.52-1.04) mg/dL Glucose (74-99) mg/dL POC Glucose (mg/dL) 182 H 211 H (75-99) mg/dL Urine Appearance Cloudy H (Clear) Urine Protein Trace H (Negative) Amorphous Sediment Occasional H (None) /hpf Urine Bacteria Rare H (None) /hpf Hyaline Casts 3 H (0-2) /lpf Urine Mucus Rare H (None) /hpf 10/08/17 10/08/17 10/08/17 Range/Units 15:04 18:21 20:06 Hgb (11.4-16.0) gm/dL MCHC (31.0-37.0) g/dL RDW (11.5-15.5) % Neutrophils # (1.3-7.7) k/uL Lymphocytes # (1.0-4.8) k/uL ABG pH 7.23 L (7.35-7.45) ABG pCO2 60 H (35-45) mmHg ABG pO2 60 L (83-108) mmHg ABG HCO3 (21-25) mmol/L ABG Total CO2 27 H (19-24) mmol/L ABG O2 Saturation 88.9 L (94-97) % Carbon Dioxide (22-30) mmol/L BUN (7-17) mg/dL Creatinine (0.52-1.04) mg/dL Glucose (74-99) mg/dL POC Glucose (mg/dL) 285 H 330 H (75-99) mg/dL Urine Appearance (Clear) Urine Protein (Negative) Amorphous Sediment (None) /hpf Urine Bacteria (None) /hpf Hyaline Casts (0-2) /lpf Urine Mucus (None) /hpf 10/08/17 10/08/17 10/08/17 Range/Units 21:04 22:29 23:25 Hgb (11.4-16.0) gm/dL MCHC (31.0-37.0) g/dL RDW (11.5-15.5) % Neutrophils # (1.3-7.7) k/uL Lymphocytes # (1.0-4.8) k/uL ABG pH 7.21 L 7.22 L 7.22 L (7.35-7.45) ABG pCO2 63 H 65 H 68 H (35-45) mmHg ABG pO2 110 H 80 L 70 L (83-108) mmHg ABG HCO3 27 H 28 H (21-25) mmol/L ABG Total CO2 27 H 29 H 30 H (19-24) mmol/L ABG O2 Saturation 98.4 H 93.0 L (94-97) % Carbon Dioxide (22-30) mmol/L BUN (7-17) mg/dL Creatinine (0.52-1.04) mg/dL Glucose (74-99) mg/dL POC Glucose (mg/dL) (75-99) mg/dL Urine Appearance (Clear) Urine Protein (Negative) Amorphous Sediment (None) /hpf Urine Bacteria (None) /hpf Hyaline Casts (0-2) /lpf Urine Mucus (None) /hpf 10/09/17 10/09/17 10/09/17 Range/Units 00:14 00:48 01:17 Hgb (11.4-16.0) gm/dL MCHC (31.0-37.0) g/dL RDW (11.5-15.5) % Neutrophils # (1.3-7.7) k/uL Lymphocytes # (1.0-4.8) k/uL ABG pH (7.35-7.45) ABG pCO2 (35-45) mmHg ABG pO2 (83-108) mmHg ABG HCO3 (21-25) mmol/L ABG Total CO2 (19-24) mmol/L ABG O2 Saturation (94-97) % Carbon Dioxide (22-30) mmol/L BUN (7-17) mg/dL Creatinine (0.52-1.04) mg/dL Glucose (74-99) mg/dL POC Glucose (mg/dL) 239 H 252 H 250 H (75-99) mg/dL Urine Appearance (Clear) Urine Protein (Negative) Amorphous Sediment (None) /hpf Urine Bacteria (None) /hpf Hyaline Casts (0-2) /lpf Urine Mucus (None) /hpf 10/09/17 10/09/17 10/09/17 Range/Units 02:07 03:08 04:03 Hgb (11.4-16.0) gm/dL MCHC (31.0-37.0) g/dL RDW (11.5-15.5) % Neutrophils # (1.3-7.7) k/uL Lymphocytes # (1.0-4.8) k/uL ABG pH (7.35-7.45) ABG pCO2 (35-45) mmHg ABG pO2 (83-108) mmHg ABG HCO3 (21-25) mmol/L ABG Total CO2 (19-24) mmol/L ABG O2 Saturation (94-97) % Carbon Dioxide (22-30) mmol/L BUN (7-17) mg/dL Creatinine (0.52-1.04) mg/dL Glucose (74-99) mg/dL POC Glucose (mg/dL) 226 H 224 H 197 H (75-99) mg/dL Urine Appearance (Clear) Urine Protein (Negative) Amorphous Sediment (None) /hpf Urine Bacteria (None) /hpf Hyaline Casts (0-2) /lpf Urine Mucus (None) /hpf 10/09/17 10/09/17 10/09/17 Range/Units 05:06 06:08 06:30 Hgb 10.9 L (11.4-16.0) gm/dL MCHC 30.2 L (31.0-37.0) g/dL RDW 15.6 H (11.5-15.5) % Neutrophils # 8.7 H (1.3-7.7) k/uL Lymphocytes # 0.8 L (1.0-4.8) k/uL ABG pH (7.35-7.45) ABG pCO2 (35-45) mmHg ABG pO2 (83-108) mmHg ABG HCO3 (21-25) mmol/L ABG Total CO2 (19-24) mmol/L ABG O2 Saturation (94-97) % Carbon Dioxide (22-30) mmol/L BUN (7-17) mg/dL Creatinine (0.52-1.04) mg/dL Glucose (74-99) mg/dL POC Glucose (mg/dL) 186 H 183 H (75-99) mg/dL Urine Appearance (Clear) Urine Protein (Negative) Amorphous Sediment (None) /hpf Urine Bacteria (None) /hpf Hyaline Casts (0-2) /lpf Urine Mucus (None) /hpf 10/09/17 10/09/17 10/09/17 Range/Units 06:30 07:08 08:01 Hgb (11.4-16.0) gm/dL MCHC (31.0-37.0) g/dL RDW (11.5-15.5) % Neutrophils # (1.3-7.7) k/uL Lymphocytes # (1.0-4.8) k/uL ABG pH (7.35-7.45) ABG pCO2 (35-45) mmHg ABG pO2 (83-108) mmHg ABG HCO3 (21-25) mmol/L ABG Total CO2 (19-24) mmol/L ABG O2 Saturation (94-97) % Carbon Dioxide 31 H (22-30) mmol/L BUN 90 H* (7-17) mg/dL Creatinine 2.20 H (0.52-1.04) mg/dL Glucose 177 H (74-99) mg/dL POC Glucose (mg/dL) 164 H 158 H (75-99) mg/dL Urine Appearance (Clear) Urine Protein (Negative) Amorphous Sediment (None) /hpf Urine Bacteria (None) /hpf Hyaline Casts (0-2) /lpf Urine Mucus (None) /hpf 10/09/17 10/09/17 10/09/17 Range/Units 08:25 09:24 10:04 Hgb (11.4-16.0) gm/dL MCHC (31.0-37.0) g/dL RDW (11.5-15.5) % Neutrophils # (1.3-7.7) k/uL Lymphocytes # (1.0-4.8) k/uL ABG pH 7.29 L (7.35-7.45) ABG pCO2 61 H (35-45) mmHg ABG pO2 76 L (83-108) mmHg ABG HCO3 29 H (21-25) mmol/L ABG Total CO2 31 H (19-24) mmol/L ABG O2 Saturation (94-97) % Carbon Dioxide (22-30) mmol/L BUN (7-17) mg/dL Creatinine (0.52-1.04) mg/dL Glucose (74-99) mg/dL POC Glucose (mg/dL) 143 H 131 H (75-99) mg/dL Urine Appearance (Clear) Urine Protein (Negative) Amorphous Sediment (None) /hpf Urine Bacteria (None) /hpf Hyaline Casts (0-2) /lpf Urine Mucus (None) /hpf Microbiology - Last 24 Hours (Table) 10/08/17 13:41 Urine Culture - Preliminary Urine,Catheterized Assessment and Plan Plan: Assessment: #1. Acute kidney injury secondary to ischemic ATN secondary to hypotension, nonsteroidals and diuresis. Creatinine was 5.6 at an outside facility prior to transfer here and is down to 2.2 today. Urinalysis is quite benign. No evidence of hydronephrosis noted on renal ultrasound. Baseline creatinine is near 1. #2. Hypovolemic hyponatremia. Resolved. #3. Hypovolemic shock from overdiuresis. Currently on 25 mics of levofed. #4. Insulin-dependent diabetes mellitus. #5. Hypotension due to diuresis. Cortisol level was noted to be low at 5. She did receive a dose of hydrocortisone yesterday. #6. Hyperphosphatemia secondary to acute kidney injury. Improved with diuresis. #7. Polyuria due to recovering renal function. Plan: I will decrease the rate of normal saline to 150 mL an hour. Avoid nephrotoxic agents and hypotensive episodes. Continue to monitor renal function and urine output closely. Repeat electrolytes in the morning. Start hydrocortisone 50 mg IV every 8 hours. Will wean over the next few days. Wean levo fed and FiO2. Monitor sodium levels - likely to rise if remains polyuric.
[2017-10-09 10:58] LABS: Glucose,Whole Blood 132 mg/dL (75-99)
[2017-10-09 11:55] LABS: Glucose,Whole Blood 150 mg/dL (75-99)
[2017-10-09] MEDS: HYDROCORTISONE SUCCINATE 100 MG/2 ML VIAL IV SCH ×3 (12:38→23:55)
[2017-10-09 12:50] LABS: Glucose,Whole Blood 142 mg/dL (75-99)
--- NOTE | 2017-10-09 12:51 | P.PN ---
Subjective Progress Note Date: 10/09/17 Principal diagnosis: Acute hypovolemic shock and acute hypercapnic respiratory failure. This is a 52-year-old female quite familiar to my service, patient is known to have history of chronic hypercapnic respiratory failure secondary to COPD, obesity hypoventilation syndrome, obstructive sleep apnea syndrome, and morbid obesity. Patient was recently admitted to the hospital with acute on chronic hypercapnic respiratory failure eventually discharged on BiPAP, bronchodilators , diuretics. Patient was seen at [facility] last night with generalized weakness, near syncope, and extremely poor urine output for the last several days. Patient has been on an extensive dose of diuretics, she takes Lasix 40 mg 3 times a day, she is also on lisinopril, and she takes Mobic on a daily basis. Upon evaluation in the ER at [facility], patient was noted to be hypotensive, there was significant renal failure with creatinine of 5.6, and her baseline creatinine on the last admission was 1. Patient was given fluid boluses, placed on IV fluid at 100 mL/h, transferred to [facility], and arrangements were made for her to be admitted last night to a monitor bed on selective. However in spite of fluids given, patient remains hypotensive, transferred to the ICU and I was asked to see her on consultation. Upon evaluating the patient she had no venous access, hence I had to place a right femoral triple-lumen catheter and a right radial arterial line. Patient was placed on fluid boluses again and started on norepinephrine. Clinically the patient seems to have sustained a significant hypovolemic shock and acute renal failure with profound dehydration, worsened by the fact that she takes Mobic and she is also on lisinopril. Patient is lethargic, denies any shortness of breath, no cough no wheezing no chest pain no headache no blurred vision no dizziness no nausea no vomiting no abdominal pain no melena no hematemesis is no dysuria and no frequency no urgency as a matter of fact she states that her urine output has been very minimal for the last couple of days. Patient was reevaluated today on 10/09/2017, apparently patient took a downhill course last night, her respiratory status deteriorated, patient was getting more and more lethargic. Tried on BiPAP with higher pressures, however her ABGs were not improving, and the patient was getting more and more obtunded, and developed worsening hypercapnic respiratory failure. Tried on higher pressures on BiPAP, but did not improve, hence I recommended intubation and mechanical ventilation. Today the patient is on mechanical ventilation, and her vent settings are tidal volume of 500, assist control rate of 18, FiO2 is 50 % and PEEP is 5. Her static compliance is in the range of 37 based on my calculation. I doubt that the patient truly has stiff lungs, but I believe her obesity and her chest wall most likely contributing to the low compliance. At any rate her ABG showed a pO2 of 76 pCO2 of 61 pH of 7.29. Since then her vent settings were adjusted to correct for the hypercapnia. Earlier ABG showed a pO2 of 68 and pH of 7.22. Her renal functioning seems to be improving, BUN is down to 90 creatinine is down to 2.20 that is a significant improvement overnight. Patient seems to have a picture of polyuric phase of renal failure, and significant amount of urine is noted. Hence her main IV fluid was increased , and she received fluid boluses. CBC is normal. Microbiology from the urine and sputum is negative so far. Patient is empirically on Rocephin although no clear-cut evidence of infectious process noted so far. Chest x-ray is suggestive of mild interstitial prominence, strongly doubt pulmonary edema. Nutrition-tovar, the patient is being fed via orogastric tube. Hemodynamics-tovar , patient remains on norepinephrine at 20 mics, but I believe we will be able to cut it down further with fluids. It was at 40 g last night. This morning more fluid boluses were given. Patient is still on hydrocortisone at 50 mg IV push every 8 hours. Patient has been on prednisone in the past for her underlying COPD. Objective - Vital Signs Vital signs: Vital Signs Temp 98.9 F 10/09/17 08:00 Pulse 82 10/09/17 11:00 Resp 18 10/09/17 11:00 BP 64/48 10/08/17 15:15 Pulse Ox 95 10/09/17 11:00 Intake & Output 10/08/17 10/09/17 10/09/17 18:59 06:59 18:59 Intake Total 3500 2990.081 1851.457 Output Total 1050 3600 2009 Balance 2450 -609.919 -158.543 Weight 180.3 kg Intake: IV 1500 2600 1662 0.9 3195 151 6154 Lactated Ringers 1,000 ml 1000 @ 999 mls/hr IV .Q1H1M SARAH Rx#:[id number] Sodium Chloride 0.9% 1, 1400 650 000 ml @ 150 mls/hr IV . Q6H40M SARAH Rx#:[id number] pressure bag 12 Intake, IV Titration 1999 390.081 189.457 Amount Insulin Regular 100 unit 40.148 16.123 In Sodium Chloride 0.9% 100 ml @ Per Protocol IV .Q0M SARAH Rx#:[id number] Norepinephrin 16 mg-0.9% 250.000 Ns Pmx 16 mg In 250 ml @ Titrate IV .Q0M SARAH Rx#: [id number] Propofol 1,000 mg In 99.933 173.334 Empty Bag 1 bag @ Titrate IV .Q0M SARAH Rx#: [id number] Sodium Chloride 0.9% 1, 1000 000 ml @ 150 mls/hr IV . Q6H40M SARAH Rx#:[id number] Sodium Chloride 0.9% 1, 1000 000 ml @ 999 mls/hr IV . Q1H1M SAARH Rx#:[id number] Output: Urine 1050 3600 2009 Other: Voiding Method Indwelling Catheter Indwelling Catheter Indwelling Catheter ABP, PAP, CO, CI - Last Documented Arterial Blood Pressure 106/52 - Exam GENERAL EXAM: Morbidly obese. Sedated, on mechanical ventilation. On propofol. HEAD: Normocephalic. EYES: Normal reaction of pupils, equal size. NOSE: Clear with pink turbinates. THROAT: Unremarkable. NECK: Obese, supple Short. No masses, no JVD. No thyromegaly, no stridor. CHEST: No chest wall deformity. LUNGS: Equal air entry with no crackles, wheeze, rhonchi or dullness. CVS: S1 and S2 normal with no audible murmur, regular rhythm. ABDOMEN: Obese, normal bowel sounds, no guarding or rigidity. Areas of ecchymosis noted in the abdominal wall related to heparin subcu given on her last hospitalization SPINE: No scoliosis or deformity SKIN: No rashes CENTRAL NERVOUS SYSTEM: Cannot be assessed today, patient is sedated on propofol , but her mental status and her neurological exam yesterday before intubation was fully intact. Except for some lethargy when she was transferred to the ICU. EXTREMITIES: There is no peripheral edema. No clubbing, no cyanosis. Peripheral pulses are intact. - Labs CBC & Chem 7: 10/09/17 06:30 10/09/17 06:30 Labs: Abnormal Lab Results - Last 24 Hours (Table) 10/08/17 10/08/17 10/08/17 Range/Units 13:33 13:41 15:04 Hgb (11.4-16.0) gm/dL MCHC (31.0-37.0) g/dL RDW (11.5-15.5) % Neutrophils # (1.3-7.7) k/uL Lymphocytes # (1.0-4.8) k/uL ABG pH 7.23 L (7.35-7.45) ABG pCO2 60 H (35-45) mmHg ABG pO2 60 L (83-108) mmHg ABG HCO3 (21-25) mmol/L ABG Total CO2 27 H (19-24) mmol/L ABG O2 Saturation 88.9 L (94-97) % Carbon Dioxide (22-30) mmol/L BUN (7-17) mg/dL Creatinine (0.52-1.04) mg/dL Glucose (74-99) mg/dL POC Glucose (mg/dL) 211 H (75-99) mg/dL Urine Appearance Cloudy H (Clear) Urine Protein Trace H (Negative) Amorphous Sediment Occasional H (None) /hpf Urine Bacteria Rare H (None) /hpf Hyaline Casts 3 H (0-2) /lpf Urine Mucus Rare H (None) /hpf 10/08/17 10/08/17 10/08/17 Range/Units 18:21 20:06 21:04 Hgb (11.4-16.0) gm/dL MCHC (31.0-37.0) g/dL RDW (11.5-15.5) % Neutrophils # (1.3-7.7) k/uL Lymphocytes # (1.0-4.8) k/uL ABG pH 7.21 L (7.35-7.45) ABG pCO2 63 H (35-45) mmHg ABG pO2 110 H (83-108) mmHg ABG HCO3 (21-25) mmol/L ABG Total CO2 27 H (19-24) mmol/L ABG O2 Saturation 98.4 H (94-97) % Carbon Dioxide (22-30) mmol/L BUN (7-17) mg/dL Creatinine (0.52-1.04) mg/dL Glucose (74-99) mg/dL POC Glucose (mg/dL) 285 H 330 H (75-99) mg/dL Urine Appearance (Clear) Urine Protein (Negative) Amorphous Sediment (None) /hpf Urine Bacteria (None) /hpf Hyaline Casts (0-2) /lpf Urine Mucus (None) /hpf 10/08/17 10/08/17 10/09/17 Range/Units 22:29 23:25 00:14 Hgb (11.4-16.0) gm/dL MCHC (31.0-37.0) g/dL RDW (11.5-15.5) % Neutrophils # (1.3-7.7) k/uL Lymphocytes # (1.0-4.8) k/uL ABG pH 7.22 L 7.22 L (7.35-7.45) ABG pCO2 65 H 68 H (35-45) mmHg ABG pO2 80 L 70 L (83-108) mmHg ABG HCO3 27 H 28 H (21-25) mmol/L ABG Total CO2 29 H 30 H (19-24) mmol/L ABG O2 Saturation 93.0 L (94-97) % Carbon Dioxide (22-30) mmol/L BUN (7-17) mg/dL Creatinine (0.52-1.04) mg/dL Glucose (74-99) mg/dL POC Glucose (mg/dL) 239 H (75-99) mg/dL Urine Appearance (Clear) Urine Protein (Negative) Amorphous Sediment (None) /hpf Urine Bacteria (None) /hpf Hyaline Casts (0-2) /lpf Urine Mucus (None) /hpf 10/09/17 10/09/17 10/09/17 Range/Units 00:48 01:17 02:07 Hgb (11.4-16.0) gm/dL MCHC (31.0-37.0) g/dL RDW (11.5-15.5) % Neutrophils # (1.3-7.7) k/uL Lymphocytes # (1.0-4.8) k/uL ABG pH (7.35-7.45) ABG pCO2 (35-45) mmHg ABG pO2 (83-108) mmHg ABG HCO3 (21-25) mmol/L ABG Total CO2 (19-24) mmol/L ABG O2 Saturation (94-97) % Carbon Dioxide (22-30) mmol/L BUN (7-17) mg/dL Creatinine (0.52-1.04) mg/dL Glucose (74-99) mg/dL POC Glucose (mg/dL) 252 H 250 H 226 H (75-99) mg/dL Urine Appearance (Clear) Urine Protein (Negative) Amorphous Sediment (None) /hpf Urine Bacteria (None) /hpf Hyaline Casts (0-2) /lpf Urine Mucus (None) /hpf 10/09/17 10/09/17 10/09/17 Range/Units 03:08 04:03 05:06 Hgb (11.4-16.0) gm/dL MCHC (31.0-37.0) g/dL RDW (11.5-15.5) % Neutrophils # (1.3-7.7) k/uL Lymphocytes # (1.0-4.8) k/uL ABG pH (7.35-7.45) ABG pCO2 (35-45) mmHg ABG pO2 (83-108) mmHg ABG HCO3 (21-25) mmol/L ABG Total CO2 (19-24) mmol/L ABG O2 Saturation (94-97) % Carbon Dioxide (22-30) mmol/L BUN (7-17) mg/dL Creatinine (0.52-1.04) mg/dL Glucose (74-99) mg/dL POC Glucose (mg/dL) 224 H 197 H 186 H (75-99) mg/dL Urine Appearance (Clear) Urine Protein (Negative) Amorphous Sediment (None) /hpf Urine Bacteria (None) /hpf Hyaline Casts (0-2) /lpf Urine Mucus (None) /hpf 10/09/17 10/09/17 10/09/17 Range/Units 06:08 06:30 06:30 Hgb 10.9 L (11.4-16.0) gm/dL MCHC 30.2 L (31.0-37.0) g/dL RDW 15.6 H (11.5-15.5) % Neutrophils # 8.7 H (1.3-7.7) k/uL Lymphocytes # 0.8 L (1.0-4.8) k/uL ABG pH (7.35-7.45) ABG pCO2 (35-45) mmHg ABG pO2 (83-108) mmHg ABG HCO3 (21-25) mmol/L ABG Total CO2 (19-24) mmol/L ABG O2 Saturation (94-97) % Carbon Dioxide 31 H (22-30) mmol/L BUN 90 H* (7-17) mg/dL Creatinine 2.20 H (0.52-1.04) mg/dL Glucose 177 H (74-99) mg/dL POC Glucose (mg/dL) 183 H (75-99) mg/dL Urine Appearance (Clear) Urine Protein (Negative) Amorphous Sediment (None) /hpf Urine Bacteria (None) /hpf Hyaline Casts (0-2) /lpf Urine Mucus (None) /hpf 10/09/17 10/09/17 10/09/17 Range/Units 07:08 08:01 08:25 Hgb (11.4-16.0) gm/dL MCHC (31.0-37.0) g/dL RDW (11.5-15.5) % Neutrophils # (1.3-7.7) k/uL Lymphocytes # (1.0-4.8) k/uL ABG pH 7.29 L (7.35-7.45) ABG pCO2 61 H (35-45) mmHg ABG pO2 76 L (83-108) mmHg ABG HCO3 29 H (21-25) mmol/L ABG Total CO2 31 H (19-24) mmol/L ABG O2 Saturation (94-97) % Carbon Dioxide (22-30) mmol/L BUN (7-17) mg/dL Creatinine (0.52-1.04) mg/dL Glucose (74-99) mg/dL POC Glucose (mg/dL) 164 H 158 H (75-99) mg/dL Urine Appearance (Clear) Urine Protein (Negative) Amorphous Sediment (None) /hpf Urine Bacteria (None) /hpf Hyaline Casts (0-2) /lpf Urine Mucus (None) /hpf 10/09/17 10/09/17 10/09/17 Range/Units 09:24 10:04 10:56 Hgb (11.4-16.0) gm/dL MCHC (31.0-37.0) g/dL RDW (11.5-15.5) % Neutrophils # (1.3-7.7) k/uL Lymphocytes # (1.0-4.8) k/uL ABG pH (7.35-7.45) ABG pCO2 (35-45) mmHg ABG pO2 (83-108) mmHg ABG HCO3 (21-25) mmol/L ABG Total CO2 (19-24) mmol/L ABG O2 Saturation (94-97) % Carbon Dioxide (22-30) mmol/L BUN (7-17) mg/dL Creatinine (0.52-1.04) mg/dL Glucose (74-99) mg/dL POC Glucose (mg/dL) 143 H 131 H 132 H (75-99) mg/dL Urine Appearance (Clear) Urine Protein (Negative) Amorphous Sediment (None) /hpf Urine Bacteria (None) /hpf Hyaline Casts (0-2) /lpf Urine Mucus (None) /hpf 10/09/17 Range/Units 11:53 Hgb (11.4-16.0) gm/dL MCHC (31.0-37.0) g/dL RDW (11.5-15.5) % Neutrophils # (1.3-7.7) k/uL Lymphocytes # (1.0-4.8) k/uL ABG pH (7.35-7.45) ABG pCO2 (35-45) mmHg ABG pO2 (83-108) mmHg ABG HCO3 (21-25) mmol/L ABG Total CO2 (19-24) mmol/L ABG O2 Saturation (94-97) % Carbon Dioxide (22-30) mmol/L BUN (7-17) mg/dL Creatinine (0.52-1.04) mg/dL Glucose (74-99) mg/dL POC Glucose (mg/dL) 150 H (75-99) mg/dL Urine Appearance (Clear) Urine Protein (Negative) Amorphous Sediment (None) /hpf Urine Bacteria (None) /hpf Hyaline Casts (0-2) /lpf Urine Mucus (None) /hpf Microbiology - Last 24 Hours (Table) 10/09/17 00:18 Sputum Culture - Preliminary Sputum 10/08/17 13:41 Urine Culture - Preliminary Urine,Catheterized Assessment and Plan Assessment: Impression: Acute on chronic hypercapnic respiratory failure secondary to obesity/hypoventilation syndrome, COPD, obstructive sleep apnea syndrome, and morbid obesity. 1 acute hypovolemic shock with hypotension secondary to diuretics and poor oral intake. 2 acute kidney injury secondary to acute tubular necrosis and hypotension as well as nonsteroidal anti-inflammatory drugs and diuretics. 3 hyponatremia secondary to acute kidney injury 4 hypotension secondary to hypovolemia and diuresis 5 history of insulin-dependent diabetes 6 multiple comorbidities including underlying COPD, chronic hypoxic and hypercapnic respiratory failure, morbid obesity, obesity hypoventilation syndrome, obstructive sleep apnea syndrome, diabetic neuropathy, hypertension, hyperlipidemia, osteoarthritis, history of gout and history of hypothyroidism. Recommendation: Continue ventilatory support, hemodynamic support, nutritional support, GI and DVT prophylaxis, close monitoring of the renal status, try to match up fluids with her extensive urine output, titrate levo fed to a mean arterial pressure of 65, continue empiric antibiotics for now, continue hydrocortisone at 50 mg IV push every 8 hours. Prognosis is relatively guarded , we'll continue to follow, critical care time is 40 minutes. Time with Patient: Greater than 30
[2017-10-09 14:16] LABS: Glucose,Whole Blood 149 mg/dL (75-99)
--- NOTE | 2017-10-09 15:27 | CONS ---
CONSULTATION This is a 52-year-old morbidly obese lady who has a history of obesity, obstructive sleep apnea syndrome, COPD. She came into the hospital mainly with what seems to be a hypercapnic respiratory failure, placed on the ventilator and I was asked to see her for any congestive heart failure type picture. The patient apparently was evaluated [facility], noted to be hypotensive with a significant elevation of creatinine of 5.6, which suggests acute renal injury since her last creatinine was close to normal about 10 days ago. She was given IV fluid bolus and transferred to [facility]. Apparently patient has been taking Mobic and lisinopril and also Lasix. The doses of these medications are unclear. After she came here, she was quite lethargic and subsequently has been intubated. On looking at her previous chart, it appears that she does not have any systolic heart failure. She probably has some diastolic heart failure and some underlying pulmonary hypertension type picture. Echocardiogram from July 09, 2017 revealed a normal systolic function with a moderate concentric LVH, ejection fraction in the 60% range with pulmonary hypertension with a 45-48 mmHg. At this time, clinically, patient is probably not in any heart failure. She seems to be pretty much in a respiratory failure type picture. She is being hydrated cautiously and the creatinine has already come down from 5.1 to 2.2. There is no evidence to suggest any active ongoing heart failure, but given her history of diastolic failure, she should be hydrated very cautiously. PAST MEDICAL HISTORY: 1. Obesity. 2. History of chronic hypercapnic respiratory issues. 3. Obstructive sleep apnea syndrome and patient apparently was tried on a BiPAP before. 4. She also has some gout. 5. Some neuropathy. 6. Hypertension. 7. Hyperlipidemia. 8. It is unclear if she has any documented CAD. MEDICATIONS: Include Singulair, metolazone, aspirin, Mobic, and she also takes iron supplements. She has been taking Zestril 5 mg daily, simvastatin 80 mg daily metformin and prednisone taper. ALLERGIES: None. The patient is on Levophed, which is being weaned slowly. She is making quite a bit of urine fortunately. EXAMINATION: Blood pressure is 120/60, pulse rate is about 90, sinus. HEENT: Unremarkable. Fundus was not examined. Neck is short and thick. Cannot appreciate JVD. Heart exam reveals S1, S2 with distant heart sounds. No significant murmur. Some respiratory noise is audible. Lungs reveal bilateral scattered rhonchi. Abdomen is distended. Lower extremities reveal diminished pulses. Rest of physical examination unchanged. IMPRESSION: 1. Acute hypercapnic respiratory failure. 2. Hypotension secondary to acidosis. 3. Acute renal injury. 4. History of diastolic heart failure. RECOMMENDATIONS: I would recommend cautious hydration. Monitor BUN and creatinine. There is no myocardial injury. I would not recommend any other intervention from a cardiac standpoint and we will continue to see her as needed. Thank you very much for the consult. MMODL / IJN: [id number] /
[2017-10-09] MEDS: HYDROmorphone 0.5 MG/0.5 ML SYRINGE IVP PRN ×2 (16:00→21:29)
[2017-10-09 16:51] LABS: Glucose,Whole Blood 165 mg/dL (75-99)
--- NOTE | 2017-10-09 17:42 | PN ---
PROGRESS NOTE DATE OF SERVICE: 10/09/2017 This 52-year-old woman who was admitted with acute renal failure, also had COPD exacerbation last night. The patient also took a turn for the worse. The patient in acute respiratory failure. Patient mechanically intubated and sedated at this time. The patient also had significant urine output at this time. About 400-500 mL. Otherwise, patient chest x-ray ordered also showed some features of CHF and the patient was seen by Cardiology and pulmonology also. The patient being closely monitored in ICU at this time. PAST MEDICAL HISTORY: Reviewed. REVIEW OF SYSTEMS: Review of systems could not be taken. The patient is mechanically ventilated and sedated. CURRENT MEDICATIONS ARE: Reviewed and include: 1. Tylenol 650 q.6h p.r.n. 2. DuoNeb q.i.d. and p.r.n. 3. Zyloprim 200. 4. Aspirin 81 mg. 5. Pulmicort 0.5 mg b.i.d. 6. Rocephin 1 g q.h.s. 7. Peridex 15 mL. 8. Flexeril 10 mg p.o. b.i.d. 9. Lexapro 10 mg q.h.s. 10.Iron sulfate 325 mg. 11.Neurontin 300 mg p.o. b.i.d. 12.Heparin subcu 5000 units subcu b.i.d. 13.Solu-Cortef 50 mg IV q.8h. 14.Dilaudid 0.5 mg b.i.d. q.2. 15.Claritin-D. 16.Insulin. 17.Singular. 18.Narcan 0.2 p.r.n. 19.Nitrostat. 20.Levophed drip. 21.Protonix. 22.Lyrica. 23.Ultram. PHYSICAL EXAM: Patient is mechanically ventilated and sedated. Vent settings are noted. Patient tidal volume, 40% FiO2 with 5 of PEEP. Physical exam: Pulse is 95, blood pressure is 120/50, respiratory 24, temperature is normal. Pulse ox 94% on 50% FiO2. HEENT: Conjunctivae normal. Oral mucosa is moist. Neck is no jugular venous distention. No carotid bruit. No lymph node enlargement. Cardiovascular system : S1, S2 muffled. No S3. No S4. Respiratory: Breath sounds diminished in the bases. Bilateral scattered rhonchi and crackles. Expiratory wheezing also present. ABDOMEN: Soft, obese, nontender. Legs: Minimal bilateral leg edema. Nervous system: Patient is mechanically sedated. Skin: No ulcer, rash or bleeding. Lymphatics : No lymph nodes palpable in the neck, axillae or groin. LAB STUDIES: WBC 11.1, hemoglobin 10.9, ABGs noted. Creatinine is 2.20 and BUN is 90. Potassium is 4.4. Other labs are noted. ASSESSMENT: 1. Acute renal failure possibly prerenal renal failure with acute tubular necrosis, multifactorial. 2. Chronic obstructive pulmonary disease, acute exacerbation with acute on chronic hypoxic hypercarbic respiratory failure as well as congestive heart failure acute exacerbation with acute diastolic congestive heart failure. 3. Acute respiratory acidosis on mechanical ventilation. 4. Hyponatremia. 5. Morbid obesity with BMI of 56.6. 6. Obesity hypoventilation syndrome. 7. Asthma, chronic obstructive pulmonary disease. 8. History of congestive heart failure. 9. Diabetes type 2. 10.Hypertension. 11.Hyperlipidemia. 12.History of degenerative joint disease. 13.History of pneumonia. 14.History of sleep apnea. 15.History of gout. 16.History of peripheral neuropathy. 17.History of chronic hypoxic respiratory failure. 18.Claustrophobia. 19.History of remote history of nicotine dependence. 20.FULL CODE. RECOMMENDATIONS AND DISCUSSION: In this 52-year-old woman who presented with multiple complex medical issues, we will monitor the patient closely. Continue the current medications, management and symptomatic treatment. Continue with mechanical ventilation. Continue with bronchodilators. The patient is on Levophed support at this time. The patient is started on antibiotics as well empirically. Otherwise, hydrocortisone. DVT prophylaxis. Proton pump inhibitors. Nephrology and cardiology has been consulted guarded. Guarded prognosis because of multiple complex medical issues. See orders for details. Further recommendations to follow. MMODL / IJN: [id number] / [email or web address]
[2017-10-09 17:54] LABS: Hemoglobin A1C 11.3 % (4.0-6.0)
[2017-10-09 18:34] LABS: Glucose,Whole Blood 143 mg/dL (75-99)
[2017-10-09 20:17] LABS: Glucose,Whole Blood 137 mg/dL (75-99)
[2017-10-09 21:29] LABS: Glucose,Whole Blood 152 mg/dL (75-99)
[2017-10-09] MEDS: ESCITALOPRAM 10 MG TAB PO SCH (21:36)
[2017-10-09] MEDS: MONTELUKAST 10 MG TAB PO SCH (21:36)
[2017-10-09 23:23] LABS: Glucose,Whole Blood 155 mg/dL (75-99)
[2017-10-10 00:06] LABS: Glucose,Whole Blood 171 mg/dL (75-99)
[2017-10-10] MEDS: PROPOFOL 1,000 MG in EMPTY BAG 1 BAG IV SCH ×15 (01:15→23:42)
[2017-10-10 02:15] LABS: Glucose,Whole Blood 176 mg/dL (75-99)
[2017-10-10] MEDS: NOREPINEPHRIN 16 MG-0.9%NS PMX 16 MG/250 ML ML IV SCH (03:07)
[2017-10-10 03:12] LABS: Glucose,Whole Blood 169 mg/dL (75-99)
[2017-10-10 04:12] LABS: Glucose,Whole Blood 178 mg/dL (75-99)
[2017-10-10] MEDS: HYDROmorphone 0.5 MG/0.5 ML SYRINGE IVP PRN ×2 (04:51→11:18)
[2017-10-10 04:55] LABS: Creatine Kinase MB 0.5 ng/mL (0.0-2.4); Troponin I <0.012 ng/mL (0.000-0.034)
[2017-10-10 05:09] LABS: Basophils % (A) 0 %; Eosinophils % (A) 1 %; HCT 31.6 % (34.0-46.0); Hypochromasia Marked; Lymphocytes # (A) 0.5 k/uL (1.0-4.8); Lymphocytes % (A) 10 %; MCH 26.9 pg (25.0-35.0); MCHC 29.7 g/dL (31.0-37.0); MCV 90.5 fL (80.0-100.0); Mean Platelet Volume 8.7; Monocytes # (A) 0.3 k/uL (0-1.0); Monocytes % (A) 6 %; Neutrophils # (A) 3.8 k/uL (1.3-7.7); Neutrophils % (A) 82 %; Platelet Count 185 k/uL (150-450); RBC 3.49 m/uL (3.80-5.40); RDW 15.6 % (11.5-15.5); WBC 4.7 k/uL (3.8-10.6)
[2017-10-10 05:22] LABS: Anion Gap 5 mmol/L; Blood Urea Nitrogen 50 mg/dL (7-17); Calcium 8.9 mg/dL (8.4-10.2); Carbon Dioxide 35 mmol/L (22-30); Chloride 111 mmol/L (98-107); Glucose 183 mg/dL (74-99); Phosphorus 2.8 mg/dL (2.5-4.5); Potassium 3.9 mmol/L (3.5-5.1); Sodium 151 mmol/L (137-145)
[2017-10-10 05:33] LABS: HGB 9.4 gm/dL (11.4-16.0)
[2017-10-10 06:13] LABS: Glucose,Whole Blood 158 mg/dL (75-99)
--- NOTE | 2017-10-10 07:12 | XR ---
EXAMINATION TYPE: XR chest 1V portable DATE OF EXAM: 10/10/2017 COMPARISON: 10/09/2017 HISTORY: Ventilatory dependent respiratory failure. TECHNIQUE: Single frontal view of the chest is obtained. FINDINGS: The previously seen pulmonary edema has resolved in the interim. Completely left midlung s ubsegmental atelectasis is noted. Cardiomediastinal silhouette is again enlarged. Endotracheal and en teric tubes are unchanged in position. No pneumothorax or pleural effusion. Osseous structures are in tact. IMPRESSION: Resolved pulmonary vascular congestion, stable tubes, and new left midlung subsegmental atelectasis.
[2017-10-10] MEDS: INSULIN REGULAR 100 UNIT in SODIUM CHLORIDE 0.9% 100 ML IV SCH ×2 (07:16→23:19)
[2017-10-10 07:17] LABS: Glucose,Whole Blood 167 mg/dL (75-99)
[2017-10-10 08:09] LABS: Glucose,Whole Blood 161 mg/dL (75-99)
[2017-10-10 08:15] LABS: ABG Base Excess 8.8 mmol/L; ABG HCO3 34 mmol/L (21-25); ABG Oxygen Saturation 97.9 % (94-97); ABG PCO2 59 mmHg (35-45); ABG PH 7.37 (7.35-7.45); ABG PO2 96 mmHg (83-108); ABG TCO2 36 mmol/L (19-24)
[2017-10-10] MEDS: IPRATROPIUM-ALBUTEROL 3 ML NEB INHALATION SCH ×3 (08:41→19:07)
[2017-10-10] MEDS: BUDESONIDE 0.5 MG/2 ML NEBU INHALATION SCH ×2 (08:41→19:07)
--- NOTE | 2017-10-10 08:55 | P.PN ---
Subjective Progress Note Date: 10/10/17 Principal diagnosis: Respiratory failure, acute kidney injury, pickwickian syndrome Progress note dated 10/10/2017 This is a 52-year-old obese female was admitted with a diagnosis of respiratory failure and acute kidney injury. She was admitted on October 07 and was intubated on the . She remains on the ventilator. The patient is initially on BiPAP, but developed tere respiratory failure or car intubation. I think this patient is a patient who would best be suited for early tracheostomy given her multiple episodes of acute respiratory failure her severe COPD her pickwickian syndrome and her sleep apnea syndrome. Currently the patient herself cannot give any additional history as she is now on the ventilator. Vent settings include the assist control mode, rate is 18 tidal volume was 500 FiO2 50% to be dropped down to 40%, PEEP of 5. Blood gases show a PaO2 of 96 a PaCO2 of 59 and a pH of 7.37. She is receiving a saline IV at 1 50 mL an hour norepinephrine at 1 [place] per gram per minute propofol at 50 mics per kilogram per minute insulin drip at 3 units an hour and vital AF with a rate of 45 and a goal of 45. Because of that because of hypernatremia, have to add some free water flushes. Her other medical history includes chronic hypoxemic and hypercapnic respiratory failure secondary to pickwickian syndrome , sleep apnea syndrome, and COPD. In addition, the patient has hypovolemic shock, acute kidney injury secondary to ATN, hypernatremia hypotension insulin- dependent diabetes mellitus COPD morbid obesity sleep apnea syndrome diabetic neuropathy hypertension hyperlipidemia DJD and gout and hypothyroidism. Objective - Vital Signs Vital signs: Vital Signs Temp 99.3 F 10/10/17 08:00 Pulse 104 H 10/10/17 08:41 Resp 18 10/10/17 08:00 BP 64/48 10/08/17 15:15 Pulse Ox 100 10/10/17 08:00 Intake & Output 10/09/17 10/10/17 10/10/17 18:59 06:59 18:59 Intake Total 3477.297 3307.433 502.969 Output Total 4660 1915 310 Balance -7956.607 3137.433 192.969 Weight 180.3 kg 232.9 kg Intake: IV 2886 1683 306 0.9 1000 Sodium Chloride 0.9% 1, 1850 1650 300 000 ml @ 150 mls/hr IV . Q6H40M SARAH Rx#:[id number] pressure bag 36 33 6 Intake, IV Titration 591.297 844.433 1.969 Amount Insulin Regular 100 unit 49.963 33.686 In Sodium Chloride 0.9% 100 ml @ Per Protocol IV .Q0M SARAH Rx#:[id number] Norepinephrin 16 mg-0.9% 259.547 1.969 Ns Pmx 16 mg In 250 ml @ Titrate IV .Q0M SARAH Rx#: [id number] Propofol 1,000 mg In 541.334 551.20 Empty Bag 1 bag @ Titrate IV .Q0M SARAH Rx#: [id number] Tube Feeding 480 105 Other 300 90 Output: Urine 4660 1915 310 Other: Voiding Method Indwelling Catheter Indwelling Catheter ABP, PAP, CO, CI - Last Documented Arterial Blood Pressure 102/46 - Exam No acute distress, oral endotracheal tube and NG tube noted. The patient is sedated. HEENT examination is grossly unremarkable. Mucous membranes are moist. No oral lesions. Neck supple. Full range of motion. No adenopathy thyromegaly or neck vein distention. Cardiovascular examination reveals regular rhythm rate. S1-S2 normal. No S3 or S4. No discernible murmur noted. Lungs reveal coarse bilateral breath sounds. Breath sounds are diminished. No wheezes or rhonchi. Abdomen obese, and bowel sounds are noted. No masses or tenderness appreciated.. Extremities are intact. Slight edema noted. Skin is without rash or lesion. Neurologic examination could not be adequately assessed as patient is sedated. - Labs CBC & Chem 7: 10/10/17 04:55 10/10/17 04:55 Labs: Abnormal Lab Results - Last 24 Hours (Table) 10/09/17 10/09/17 10/09/17 Range/Units 06:30 09:24 10:04 RBC (3.80-5.40) m/uL Hgb (11.4-16.0) gm/dL Hct (34.0-46.0) % MCHC (31.0-37.0) g/dL RDW (11.5-15.5) % Lymphocytes # (1.0-4.8) k/uL ABG pCO2 (35-45) mmHg ABG HCO3 (21-25) mmol/L ABG Total CO2 (19-24) mmol/L ABG O2 Saturation (94-97) % Sodium (137-145) mmol/L Chloride (98-107) mmol/L Carbon Dioxide (22-30) mmol/L BUN (7-17) mg/dL Glucose (74-99) mg/dL POC Glucose (mg/dL) 143 H 131 H (75-99) mg/dL Hemoglobin A1c 11.3 H (4.0-6.0) % 10/09/17 10/09/17 10/09/17 Range/Units 10:56 11:53 12:49 RBC (3.80-5.40) m/uL Hgb (11.4-16.0) gm/dL Hct (34.0-46.0) % MCHC (31.0-37.0) g/dL RDW (11.5-15.5) % Lymphocytes # (1.0-4.8) k/uL ABG pCO2 (35-45) mmHg ABG HCO3 (21-25) mmol/L ABG Total CO2 (19-24) mmol/L ABG O2 Saturation (94-97) % Sodium (137-145) mmol/L Chloride (98-107) mmol/L Carbon Dioxide (22-30) mmol/L BUN (7-17) mg/dL Glucose (74-99) mg/dL POC Glucose (mg/dL) 132 H 150 H 142 H (75-99) mg/dL Hemoglobin A1c (4.0-6.0) % 10/09/17 10/09/17 10/09/17 Range/Units 14:14 16:49 18:31 RBC (3.80-5.40) m/uL Hgb (11.4-16.0) gm/dL Hct (34.0-46.0) % MCHC (31.0-37.0) g/dL RDW (11.5-15.5) % Lymphocytes # (1.0-4.8) k/uL ABG pCO2 (35-45) mmHg ABG HCO3 (21-25) mmol/L ABG Total CO2 (19-24) mmol/L ABG O2 Saturation (94-97) % Sodium (137-145) mmol/L Chloride (98-107) mmol/L Carbon Dioxide (22-30) mmol/L BUN (7-17) mg/dL Glucose (74-99) mg/dL POC Glucose (mg/dL) 149 H 165 H 143 H (75-99) mg/dL Hemoglobin A1c (4.0-6.0) % 10/09/17 10/09/17 10/09/17 Range/Units 20:15 21:27 23:21 RBC (3.80-5.40) m/uL Hgb (11.4-16.0) gm/dL Hct (34.0-46.0) % MCHC (31.0-37.0) g/dL RDW (11.5-15.5) % Lymphocytes # (1.0-4.8) k/uL ABG pCO2 (35-45) mmHg ABG HCO3 (21-25) mmol/L ABG Total CO2 (19-24) mmol/L ABG O2 Saturation (94-97) % Sodium (137-145) mmol/L Chloride (98-107) mmol/L Carbon Dioxide (22-30) mmol/L BUN (7-17) mg/dL Glucose (74-99) mg/dL POC Glucose (mg/dL) 137 H 152 H 155 H (75-99) mg/dL Hemoglobin A1c (4.0-6.0) % 10/10/17 10/10/17 10/10/17 Range/Units 00:04 02:13 03:11 RBC (3.80-5.40) m/uL Hgb (11.4-16.0) gm/dL Hct (34.0-46.0) % MCHC (31.0-37.0) g/dL RDW (11.5-15.5) % Lymphocytes # (1.0-4.8) k/uL ABG pCO2 (35-45) mmHg ABG HCO3 (21-25) mmol/L ABG Total CO2 (19-24) mmol/L ABG O2 Saturation (94-97) % Sodium (137-145) mmol/L Chloride (98-107) mmol/L Carbon Dioxide (22-30) mmol/L BUN (7-17) mg/dL Glucose (74-99) mg/dL POC Glucose (mg/dL) 171 H 176 H 169 H (75-99) mg/dL Hemoglobin A1c (4.0-6.0) % 10/10/17 10/10/17 10/10/17 Range/Units 04:09 04:55 04:55 RBC 3.49 L (3.80-5.40) m/uL Hgb 9.4 L D (11.4-16.0) gm/dL Hct 31.6 L (34.0-46.0) % MCHC 29.7 L (31.0-37.0) g/dL RDW 15.6 H (11.5-15.5) % Lymphocytes # 0.5 L (1.0-4.8) k/uL ABG pCO2 (35-45) mmHg ABG HCO3 (21-25) mmol/L ABG Total CO2 (19-24) mmol/L ABG O2 Saturation (94-97) % Sodium 151 H (137-145) mmol/L Chloride 111 H (98-107) mmol/L Carbon Dioxide 35 H (22-30) mmol/L BUN 50 H (7-17) mg/dL Glucose 183 H (74-99) mg/dL POC Glucose (mg/dL) 178 H (75-99) mg/dL Hemoglobin A1c (4.0-6.0) % 10/10/17 10/10/17 10/10/17 Range/Units 06:11 07:15 08:04 RBC (3.80-5.40) m/uL Hgb (11.4-16.0) gm/dL Hct (34.0-46.0) % MCHC (31.0-37.0) g/dL RDW (11.5-15.5) % Lymphocytes # (1.0-4.8) k/uL ABG pCO2 59 H (35-45) mmHg ABG HCO3 34 H (21-25) mmol/L ABG Total CO2 36 H (19-24) mmol/L ABG O2 Saturation 97.9 H (94-97) % Sodium (137-145) mmol/L Chloride (98-107) mmol/L Carbon Dioxide (22-30) mmol/L BUN (7-17) mg/dL Glucose (74-99) mg/dL POC Glucose (mg/dL) 158 H 167 H (75-99) mg/dL Hemoglobin A1c (4.0-6.0) % 10/10/17 Range/Units 08:07 RBC (3.80-5.40) m/uL Hgb (11.4-16.0) gm/dL Hct (34.0-46.0) % MCHC (31.0-37.0) g/dL RDW (11.5-15.5) % Lymphocytes # (1.0-4.8) k/uL ABG pCO2 (35-45) mmHg ABG HCO3 (21-25) mmol/L ABG Total CO2 (19-24) mmol/L ABG O2 Saturation (94-97) % Sodium (137-145) mmol/L Chloride (98-107) mmol/L Carbon Dioxide (22-30) mmol/L BUN (7-17) mg/dL Glucose (74-99) mg/dL POC Glucose (mg/dL) 161 H (75-99) mg/dL Hemoglobin A1c (4.0-6.0) % Microbiology - Last 24 Hours (Table) 10/09/17 02:35 Blood Culture - Preliminary Blood No Growth after 24 hours 10/09/17 02:15 Blood Culture - Preliminary Blood No Growth after 24 hours 10/08/17 13:41 Urine Culture - Final Urine,Catheterized 10/09/17 00:18 Gram Stain - Preliminary Sputum Sputum Culture - Preliminary Assessment and Plan Assessment: Assessment Acute on chronic hypoxemic and hypercapnic respiratory failure secondary to COPD morbid obesity sleep apnea syndrome and pickwickian syndrome Hypovolemic shock Acute kidney injury, secondary to acute tubular necrosis Hypernatremia Hypotension Diabetes mellitus COPD Sleep apnea syndrome Pickwickian syndrome Diabetic neuropathy Hypertension Hyperlipidemia DJD Gout Hypothyroidism Plan: Plan dated 10/10/2017 The patient's overall prognosis is poor. The patient's FiO2 will be dropped from 50-40%. The patient's norepinephrine will be weaned off. The patient will continue with tube feeds. The patient will have free water added to the regimen at 200 mL every 4 hours. We'll talk to the family about CODE STATUS. In addition, the patient should have an early tracheostomy and PEG tube even her multiple episodes of respiratory failure. Additional recommendations and suggestions are forthcoming. Prognosis is poor meds labs and x-rays are all reviewed. Time with Patient: Greater than 30
[2017-10-10] MEDS: HYDROCORTISONE SUCCINATE 100 MG/2 ML VIAL IV SCH ×2 (09:10→20:11)
[2017-10-10] MEDS: HEPARIN SODIUM,PORCINE 5,000 UNIT/ML 1 ML VIAL SQ SCH ×3 (09:10→23:15)
[2017-10-10] MEDS: ALLOPURINOL 100 MG TAB PO SCH (09:11)
[2017-10-10] MEDS: CHLORHEXIDINE GLUCONATE 15 ML CUP MUCOUS MEM SCH ×2 (09:11→20:10)
[2017-10-10] MEDS: ASPIRIN 81 MG PO SCH (09:12)
[2017-10-10] MEDS: FERROUS SULFATE 325 MG TAB PO SCH (09:12)
[2017-10-10] MEDS: CYCLOBENZAPRINE 10 MG TAB PO SCH ×2 (09:12→20:11)
[2017-10-10] MEDS: GABAPENTIN 300 MG CAP PO SCH ×2 (09:12→20:11)
[2017-10-10] MEDS: LORATADINE-PSEUDOEPH 5-120 MG 1 EACH TAB.ER.12H PO SCH ×2 (09:12→20:13)
[2017-10-10] MEDS: PANTOPRAZOLE 40 MG/10 ML VIAL IV SCH (09:13)
[2017-10-10 09:19] LABS: Glucose,Whole Blood 154 mg/dL (75-99)
[2017-10-10 10:07] LABS: Glucose,Whole Blood 160 mg/dL (75-99)
--- NOTE | 2017-10-10 10:50 | P.PN ---
Subjective Patient is seen in follow-up for acute kidney injury. Her creatinine was greater than 5 on admission and is down to 1 today. She is nonoliguric. She was transferred to the intensive care unit on October 08 due to respiratory distress and is currently intubated and sedated. Levophed was discontinued this morning. She's currently receiving normal saline at 100 mL an hour. Sodium level is up to 151 this morning. She is also receiving tube feeds. Vital signs are stable. General: The patient appeared well nourished and normally developed. Currently intubated. HEENT: Head exam is unremarkable. Neck is without jugular venous distension. LUNGS: Lungs are clear to auscultation and percussion. Breath sounds decreased. HEART: Rate and Rhythm are regular. First and second heart sounds normal. No murmurs, rubs or gallops. ABDOMEN: Abdominal exam reveals normal bowel sounds. Non-tender and non- distended. No evidence of peritonitis. EXTREMITITES: No clubbing, cyanosis, or edema. Objective - Vital Signs Vital signs: Vital Signs Temp 99.3 F 10/10/17 08:00 Pulse 116 H 10/10/17 10:00 Resp 18 10/10/17 10:00 BP 64/48 10/08/17 15:15 Pulse Ox 96 10/10/17 10:00 Intake & Output 10/09/17 10/10/17 10/10/17 18:59 06:59 18:59 Intake Total 3477.297 3307.433 1141.996 Output Total 4660 1915 660 Balance -6800.105 7568.433 481.996 Weight 180.3 kg 232.9 kg Intake: IV 2886 1683 562 0.9 1000 Sodium Chloride 0.9% 1, 1850 1650 550 000 ml @ 100 mls/hr IV . Q10H SARAH Rx#:[id number] pressure bag 36 33 12 Intake, IV Titration 591.297 844.433 164.996 Amount Insulin Regular 100 unit 49.963 33.686 In Sodium Chloride 0.9% 100 ml @ Per Protocol IV .Q0M SARAH Rx#:[id number] Insulin Regular 100 unit 7.9 In Sodium Chloride 0.9% 100 ml @ Per Protocol IV .Q0M SARAH Rx#:[id number] Norepinephrin 16 mg-0.9% 259.547 3.736 Ns Pmx 16 mg In 250 ml @ Titrate IV .Q0M SARAH Rx#: [id number] Propofol 1,000 mg In 541.334 551.20 153.36 Empty Bag 1 bag @ Titrate IV .Q0M SARAH Rx#: [id number] Tube Feeding 480 325 Other 300 90 Output: Urine 4660 1915 660 Other: Voiding Method Indwelling Catheter Indwelling Catheter Indwelling Catheter ABP, PAP, CO, CI - Last Documented Arterial Blood Pressure 115/48 - Labs CBC & Chem 7: 10/10/17 04:55 10/10/17 04:55 Labs: Abnormal Lab Results - Last 24 Hours (Table) 10/09/17 10/09/17 10/09/17 Range/Units 06:30 10:56 11:53 RBC (3.80-5.40) m/uL Hgb (11.4-16.0) gm/dL Hct (34.0-46.0) % MCHC (31.0-37.0) g/dL RDW (11.5-15.5) % Lymphocytes # (1.0-4.8) k/uL ABG pCO2 (35-45) mmHg ABG HCO3 (21-25) mmol/L ABG Total CO2 (19-24) mmol/L ABG O2 Saturation (94-97) % Sodium (137-145) mmol/L Chloride (98-107) mmol/L Carbon Dioxide (22-30) mmol/L BUN (7-17) mg/dL Glucose (74-99) mg/dL POC Glucose (mg/dL) 132 H 150 H (75-99) mg/dL Hemoglobin A1c 11.3 H (4.0-6.0) % 10/09/17 10/09/17 10/09/17 Range/Units 12:49 14:14 16:49 RBC (3.80-5.40) m/uL Hgb (11.4-16.0) gm/dL Hct (34.0-46.0) % MCHC (31.0-37.0) g/dL RDW (11.5-15.5) % Lymphocytes # (1.0-4.8) k/uL ABG pCO2 (35-45) mmHg ABG HCO3 (21-25) mmol/L ABG Total CO2 (19-24) mmol/L ABG O2 Saturation (94-97) % Sodium (137-145) mmol/L Chloride (98-107) mmol/L Carbon Dioxide (22-30) mmol/L BUN (7-17) mg/dL Glucose (74-99) mg/dL POC Glucose (mg/dL) 142 H 149 H 165 H (75-99) mg/dL Hemoglobin A1c (4.0-6.0) % 10/09/17 10/09/17 10/09/17 Range/Units 18:31 20:15 21:27 RBC (3.80-5.40) m/uL Hgb (11.4-16.0) gm/dL Hct (34.0-46.0) % MCHC (31.0-37.0) g/dL RDW (11.5-15.5) % Lymphocytes # (1.0-4.8) k/uL ABG pCO2 (35-45) mmHg ABG HCO3 (21-25) mmol/L ABG Total CO2 (19-24) mmol/L ABG O2 Saturation (94-97) % Sodium (137-145) mmol/L Chloride (98-107) mmol/L Carbon Dioxide (22-30) mmol/L BUN (7-17) mg/dL Glucose (74-99) mg/dL POC Glucose (mg/dL) 143 H 137 H 152 H (75-99) mg/dL Hemoglobin A1c (4.0-6.0) % 10/09/17 10/10/17 10/10/17 Range/Units 23:21 00:04 02:13 RBC (3.80-5.40) m/uL Hgb (11.4-16.0) gm/dL Hct (34.0-46.0) % MCHC (31.0-37.0) g/dL RDW (11.5-15.5) % Lymphocytes # (1.0-4.8) k/uL ABG pCO2 (35-45) mmHg ABG HCO3 (21-25) mmol/L ABG Total CO2 (19-24) mmol/L ABG O2 Saturation (94-97) % Sodium (137-145) mmol/L Chloride (98-107) mmol/L Carbon Dioxide (22-30) mmol/L BUN (7-17) mg/dL Glucose (74-99) mg/dL POC Glucose (mg/dL) 155 H 171 H 176 H (75-99) mg/dL Hemoglobin A1c (4.0-6.0) % 10/10/17 10/10/17 10/10/17 Range/Units 03:11 04:09 04:55 RBC 3.49 L (3.80-5.40) m/uL Hgb 9.4 L D (11.4-16.0) gm/dL Hct 31.6 L (34.0-46.0) % MCHC 29.7 L (31.0-37.0) g/dL RDW 15.6 H (11.5-15.5) % Lymphocytes # 0.5 L (1.0-4.8) k/uL ABG pCO2 (35-45) mmHg ABG HCO3 (21-25) mmol/L ABG Total CO2 (19-24) mmol/L ABG O2 Saturation (94-97) % Sodium (137-145) mmol/L Chloride (98-107) mmol/L Carbon Dioxide (22-30) mmol/L BUN (7-17) mg/dL Glucose (74-99) mg/dL POC Glucose (mg/dL) 169 H 178 H (75-99) mg/dL Hemoglobin A1c (4.0-6.0) % 10/10/17 10/10/17 10/10/17 Range/Units 04:55 06:11 07:15 RBC (3.80-5.40) m/uL Hgb (11.4-16.0) gm/dL Hct (34.0-46.0) % MCHC (31.0-37.0) g/dL RDW (11.5-15.5) % Lymphocytes # (1.0-4.8) k/uL ABG pCO2 (35-45) mmHg ABG HCO3 (21-25) mmol/L ABG Total CO2 (19-24) mmol/L ABG O2 Saturation (94-97) % Sodium 151 H (137-145) mmol/L Chloride 111 H (98-107) mmol/L Carbon Dioxide 35 H (22-30) mmol/L BUN 50 H (7-17) mg/dL Glucose 183 H (74-99) mg/dL POC Glucose (mg/dL) 158 H 167 H (75-99) mg/dL Hemoglobin A1c (4.0-6.0) % 10/10/17 10/10/17 10/10/17 Range/Units 08:04 08:07 09:17 RBC (3.80-5.40) m/uL Hgb (11.4-16.0) gm/dL Hct (34.0-46.0) % MCHC (31.0-37.0) g/dL RDW (11.5-15.5) % Lymphocytes # (1.0-4.8) k/uL ABG pCO2 59 H (35-45) mmHg ABG HCO3 34 H (21-25) mmol/L ABG Total CO2 36 H (19-24) mmol/L ABG O2 Saturation 97.9 H (94-97) % Sodium (137-145) mmol/L Chloride (98-107) mmol/L Carbon Dioxide (22-30) mmol/L BUN (7-17) mg/dL Glucose (74-99) mg/dL POC Glucose (mg/dL) 161 H 154 H (75-99) mg/dL Hemoglobin A1c (4.0-6.0) % 10/10/17 Range/Units 10:06 RBC (3.80-5.40) m/uL Hgb (11.4-16.0) gm/dL Hct (34.0-46.0) % MCHC (31.0-37.0) g/dL RDW (11.5-15.5) % Lymphocytes # (1.0-4.8) k/uL ABG pCO2 (35-45) mmHg ABG HCO3 (21-25) mmol/L ABG Total CO2 (19-24) mmol/L ABG O2 Saturation (94-97) % Sodium (137-145) mmol/L Chloride (98-107) mmol/L Carbon Dioxide (22-30) mmol/L BUN (7-17) mg/dL Glucose (74-99) mg/dL POC Glucose (mg/dL) 160 H (75-99) mg/dL Hemoglobin A1c (4.0-6.0) % Microbiology - Last 24 Hours (Table) 10/09/17 02:35 Blood Culture - Preliminary Blood No Growth after 24 hours 10/09/17 02:15 Blood Culture - Preliminary Blood No Growth after 24 hours 10/08/17 13:41 Urine Culture - Final Urine,Catheterized 10/09/17 00:18 Gram Stain - Preliminary Sputum Sputum Culture - Preliminary Assessment and Plan Plan: Assessment: #1. Acute kidney injury secondary to ischemic ATN secondary to hypotension, nonsteroidals and diuresis. Creatinine was 5.6 at an outside facility prior to transfer here and is down to 1 today. Urinalysis is quite benign. No evidence of hydronephrosis noted on renal ultrasound. Baseline creatinine is near 1. #2. Hypovolemic hyponatremia. Resolved. #3. Hypovolemic shock from overdiuresis. Levo fed discontinued this morning. #4. Insulin-dependent diabetes mellitus. #5. Hypotension due to diuresis. Cortisol level was noted to be low at 5. Maintained on hydrocortisone. #6. Hyperphosphatemia secondary to acute kidney injury. Improved with diuresis. #7. Polyuria due to recovering renal function. Plan: I will decrease the rate of normal saline to 100 mL an hour. Add free water flushes 300 mL every 4 hours with tube feeds. Avoid nephrotoxic agents and hypotensive episodes. Continue to monitor renal function and urine output closely. Repeat electrolytes in the morning. Decrease hydrocortisone to 50 mg IV twice daily. Wean FiO2.
[2017-10-10 11:19] LABS: Glucose,Whole Blood 147 mg/dL (75-99)
[2017-10-10] MEDS: PREGABALIN 75 MG CAP PO SCH ×2 (11:19→20:28)
[2017-10-10] MEDS: SODIUM CHLORIDE 0.9% 1,000 ML IV SCH ×3 (11:19→19:12)
[2017-10-10 12:12] LABS: Glucose,Whole Blood 165 mg/dL (75-99)
[2017-10-10 13:07] LABS: Glucose,Whole Blood 170 mg/dL (75-99)
[2017-10-10 14:11] LABS: Glucose,Whole Blood 177 mg/dL (75-99)
[2017-10-10] MEDS ORDERED: LABETALOL 5 MG/ML VIAL MDV IVP STA (14:19)
[2017-10-10 15:12] LABS: Glucose,Whole Blood 191 mg/dL (75-99)
[2017-10-10 16:10] LABS: Glucose,Whole Blood 188 mg/dL (75-99)
[2017-10-10 17:05] LABS: Glucose,Whole Blood 182 mg/dL (75-99)
--- NOTE | 2017-10-10 17:46 | PN ---
PROGRESS NOTE DATE OF SERVICE: 10/10/2017 This 52-year-old woman who was admitted with acute renal failure, possibly prerenal renal failure, acute tubular necrosis, also has COPD, respiratory difficulties and also pulmonary edema. The patient had acute respiratory failure. Patient is mechanically ventilated and sedated at this time. Otherwise Pulmonary is following the patient closely. The chest x-ray showed significant improvement of vascular congestion. Dr. Laurent is following the patient closely; recommended early tracheostomy and PEG tube because of the multiple complex medical issues. The patient will be closely monitored in the ICU at this time. The vent settings are tidal volume 500 and FIO2 of 40 , PEEP of 5. Patient's saturation is around 96 and the tube feeds are at 55 mL/hour. Past medical history reviewed. Review of systems could not be taken; the patient is mechanically ventilated and sedated. CURRENT MEDICATIONS: Current medications are reviewed and include: 1. Tylenol 650 q.6 p.r.n. 2. DuoNeb q.i.d. and p.r.n. 3. Zyloprim 200 mg daily. 4. Aspirin 81 mg p.o. daily. 5. Pulmicort 0.5 b.i.d. 6. Rocephin 1 gram IV at bedtime. 7. Peridex 8. Flexeril 10 mg b.i.d. 9. Lexapro 10 mg at bedtime. 10.Iron sulfate 325 mg daily. 11.Neurontin. 12.Heparin 5000 units subcutaneously b.i.d. 13.Solu-Cortef 50 mg b.i.d. 14.Dilaudid 2 mg q.2 p.r.n. 15.Narcan p.r.n. 16.Lyrica. 17.Protonix. PHYSICAL EXAMINATION: Patient is mechanically ventilated and sedated. Pulse is 121, irregular. The blood pressure is 145/65, respiration 18, temperature normal, pulse ox 93% on 40% FiO2. HEENT: Conjunctivae normal. Oral mucosa moist. NECK: No jugular venous distention. No carotid bruit. No lymph node enlargement. CARDIOVASCULAR SYSTEM: S1, S2 muffled. RESPIRATORY SYSTEM: Breath sounds diminished at the bases. Bilateral scattered rhonchi and crackles ABDOMEN: Soft, obese, nontender. LEGS: No edema. No swelling. NERVOUS SYSTEM: No focal deficit. LABS: Accu-Cheks 191, 188. WBC 9.4. Other labs are noted. Creatinine is much improved to 1. ASSESSMENT: 1. Acute renal failure, possibly prerenal renal failure with acute tubular necrosis, multifactorial, present on admission. 2. Shortness of breath with chronic obstructive pulmonary disease, acute exacerbation, with both hypercarbic respiratory failure as well as congestive heart failure, acute exacerbation, with acute diastolic congestive heart failure. 3. Acute respiratory acidosis, on mechanical ventilation. 4. Hyponatremia. 5. Morbid obesity with body mass index of 56.6 and obesity hypoventilation syndrome. 6. Asthma, chronic obstructive pulmonary disease. 7. History of congestive heart failure. 8. Diabetes mellitus, type 2. 9. Hypertension. 10.Hyperlipidemia. 11.History of degenerative joint disease. 12.History of pneumonia. 13.History of sleep apnea. 14.History of gout. 15.History of peripheral neuropathy. 16.Chronic hypoxic respiratory failure. 17.Claustrophobia. 18.Remote history of nicotine dependence. 19.FULL CODE. RECOMMENDATIONS AND DISCUSSION: In this 52-year-old woman who presented with multiple complex medical issues, we will monitor the patient closely, continue the current medications, continue with symptomatic treatment, continue with the bronchodilators, continue with the diuretics. Monitor fluid/electrolyte balance closely. Monitor renal functions closely. Otherwise closely follow with Dr. Laurent. The creatinine has improved significantly. Prognosis is guarded because of multiple complex medical issues. Further recommendations to follow. MMODL / IJN: [id number] / TOSIN
[2017-10-10 18:06] LABS: Glucose,Whole Blood 157 mg/dL (75-99)
[2017-10-10 19:09] LABS: Glucose,Whole Blood 152 mg/dL (75-99)
[2017-10-10 20:08] LABS: Glucose,Whole Blood 136 mg/dL (75-99)
[2017-10-10] MEDS: ESCITALOPRAM 10 MG TAB PO SCH (20:11)
[2017-10-10] MEDS: MONTELUKAST 10 MG TAB PO SCH (20:13)
--- NOTE | 2017-10-10 20:24 | PN ---
PROGRESS NOTE This lady came in with hypercapnic respiratory failure. She is doing better today clinically. She also had a significant elevation of her creatinine. There was some acute kidney injury type picture. This has improved remarkably. Her creatinine, which was as high as 5.1, is down to 1. BUN also has improved. The patient, however, appears to be still ventilated. Weaning efforts have not yet been initiated. She remains in sinus rhythm. She has hypercapnic respiratory failure, and this is being addressed by Pulmonology. Her troponin levels were unremarkable. She has history of some diastolic failure, but the last echo revealed preserved systolic function; this was in June of 2017. Physical exam revealed heart rate of about 104, sinus tachycardia. Blood pressure is 140/70. HEENT: Unremarkable. Fundus was not examined. S1, S2 heard normally but distantly. Lungs reveal bilateral air entry with respirator-delivered breaths. Lower extremities reveal bilateral edema, decreased pulses. From a cardiac standpoint, I have no new suggestions. I will recommend a small dose of a beta juan ramon to be given if there is no contraindication. I will recommend a small dose of 12.5 mg of metoprolol tartrate 3 times a day through the NG tube. I will continue to see her as needed. No other suggestions from a cardiac standpoint. MMODL / IJN: [id number] /
[2017-10-10] MEDS: cefTRIAXone IN SWFI 1,000 MG/10 ML SYRINGE IVP SCH (20:27)
[2017-10-10] MEDS: HYDROmorphone 2 MG TAB PO PRN (20:27)
[2017-10-10 21:03] LABS: Glucose,Whole Blood 163 mg/dL (75-99)
[2017-10-10 21:37] LABS: Glucose,Whole Blood 168 mg/dL (75-99)
[2017-10-10 22:10] LABS: Glucose,Whole Blood 172 mg/dL (75-99)
[2017-10-10 23:15] LABS: Glucose,Whole Blood 174 mg/dL (75-99)
[2017-10-11 00:02] LABS: Glucose,Whole Blood 199 mg/dL (75-99)
[2017-10-11] MEDS: PROPOFOL 1,000 MG in EMPTY BAG 1 BAG IV SCH ×13 (01:01→23:05)
[2017-10-11 01:07] LABS: Glucose,Whole Blood 202 mg/dL (75-99)
[2017-10-11 02:19] LABS: Glucose,Whole Blood 192 mg/dL (75-99)
[2017-10-11 03:26] LABS: Glucose,Whole Blood 187 mg/dL (75-99)
[2017-10-11 04:29] LABS: Glucose,Whole Blood 161 mg/dL (75-99)
[2017-10-11] MEDS: SODIUM CHLORIDE 0.9% 1,000 ML IV SCH (04:39)
[2017-10-11 04:52] LABS: Basophils % (A) 0 %; Eosinophils # (A) 0.1 k/uL (0-0.7); Eosinophils % (A) 2 %; Hypochromasia Marked; Lymphocytes # (A) 0.4 k/uL (1.0-4.8); Lymphocytes % (A) 17 %; MCH 26.1 pg (25.0-35.0); MCHC 28.5 g/dL (31.0-37.0); MCV 91.6 fL (80.0-100.0); Mean Platelet Volume 8.6; Monocytes # (A) 0.2 k/uL (0-1.0); Monocytes % (A) 8 %; Neutrophils # (A) 1.7 k/uL (1.3-7.7); Neutrophils % (A) 71 %; Platelet Count 117 k/uL (150-450); RBC 2.34 m/uL (3.80-5.40); RDW 15.9 % (11.5-15.5); WBC 2.4 k/uL (3.8-10.6)
[2017-10-11 04:59] LABS: ABG Base Excess 10.6 mmol/L; ABG HCO3 36 mmol/L (21-25); ABG Oxygen Saturation 93.2 % (94-97); ABG PCO2 58 mmHg (35-45); ABG PH 7.39 (7.35-7.45); ABG PO2 68 mmHg (83-108); ABG TCO2 37 mmol/L (19-24)
[2017-10-11 05:00] LABS: HGB 6.1 gm/dL (11.4-16.0)
[2017-10-11 05:01] LABS: HCT 21.4 % (34.0-46.0)
[2017-10-11 05:02] LABS: Anion Gap 4 mmol/L; Blood Urea Nitrogen 28 mg/dL (7-17); Calcium 8.6 mg/dL (8.4-10.2); Carbon Dioxide 36 mmol/L (22-30); Chloride 111 mmol/L (98-107); Glucose 153 mg/dL (74-99); Phosphorus 2.6 mg/dL (2.5-4.5); Potassium 3.9 mmol/L (3.5-5.1); Sodium 151 mmol/L (137-145)
[2017-10-11 05:17] LABS: Glucose,Whole Blood 152 mg/dL (75-99)
[2017-10-11 05:33] LABS: Hypochromasia Marked; MCH 28.1 pg (25.0-35.0); MCHC 31.4 g/dL (31.0-37.0); MCV 89.3 fL (80.0-100.0); Mean Platelet Volume 7.9; Platelet Count 174 k/uL (150-450); RBC 3.24 m/uL (3.80-5.40); RDW 15.8 % (11.5-15.5); WBC 3.9 k/uL (3.8-10.6)
[2017-10-11 05:45] LABS: HGB 9.1 gm/dL (11.4-16.0)
[2017-10-11 06:08] LABS: Glucose,Whole Blood 160 mg/dL (75-99)
[2017-10-11] MEDS ORDERED: POTASSIUM CHLORIDE 20 MEQ in WATER FOR INJECTION 1 100ML.BAG IVPB ONE (06:30)
[2017-10-11] MEDS: MAGNESIUM SULFATE-D5W PMX 1 GM in DEXTROSE/WATER 1 100ML.BAG IVPB SCH ×2 (06:48→07:58)
[2017-10-11] MEDS: BUDESONIDE 0.5 MG/2 ML NEBU INHALATION SCH ×2 (07:16→19:18)
[2017-10-11] MEDS: IPRATROPIUM-ALBUTEROL 3 ML NEB INHALATION SCH ×3 (07:16→19:18)
[2017-10-11 07:17] LABS: Glucose,Whole Blood 149 mg/dL (75-99)
[2017-10-11] MEDS: HEPARIN SODIUM,PORCINE 5,000 UNIT/ML 1 ML VIAL SQ SCH ×2 (07:58→15:09)
[2017-10-11] MEDS: LORATADINE-PSEUDOEPH 5-120 MG 1 EACH TAB.ER.12H PO SCH ×2 (08:05→20:55)
[2017-10-11] MEDS: ALLOPURINOL 100 MG TAB PO SCH (08:05)
[2017-10-11] MEDS: CYCLOBENZAPRINE 10 MG TAB PO SCH ×2 (08:05→20:55)
[2017-10-11] MEDS: ASPIRIN 81 MG PO SCH (08:05)
[2017-10-11] MEDS: PREGABALIN 75 MG CAP PO SCH ×2 (08:07→21:19)
[2017-10-11] MEDS: CHLORHEXIDINE GLUCONATE 15 ML CUP MUCOUS MEM SCH ×2 (08:09→20:55)
[2017-10-11] MEDS: FERROUS SULFATE 325 MG TAB PO SCH (08:09)
[2017-10-11] MEDS: GABAPENTIN 300 MG CAP PO SCH ×2 (08:09→20:55)
[2017-10-11] MEDS: PANTOPRAZOLE 40 MG/10 ML VIAL IV SCH (08:09)
[2017-10-11] MEDS: HYDROCORTISONE SUCCINATE 100 MG/2 ML VIAL IV SCH (08:09)
[2017-10-11] MEDS: HYDROmorphone 2 MG TAB PO PRN ×2 (08:12→12:14)
[2017-10-11 08:19] LABS: Glucose,Whole Blood 145 mg/dL (75-99)
--- NOTE | 2017-10-11 08:58 | P.PN ---
Subjective Progress Note Date: 10/11/17 Principal diagnosis: Respiratory failure, acute kidney injury, pickwickian syndrome Progress note dated 10/10/2017 This is a 52-year-old obese female was admitted with a diagnosis of respiratory failure and acute kidney injury. She was admitted on October 07 and was intubated on the . She remains on the ventilator. The patient is initially on BiPAP, but developed tere respiratory failure or car intubation. I think this patient is a patient who would best be suited for early tracheostomy given her multiple episodes of acute respiratory failure her severe COPD her pickwickian syndrome and her sleep apnea syndrome. Currently the patient herself cannot give any additional history as she is now on the ventilator. Vent settings include the assist control mode, rate is 18 tidal volume was 500 FiO2 50% to be dropped down to 40%, PEEP of 5. Blood gases show a PaO2 of 96 a PaCO2 of 59 and a pH of 7.37. She is receiving a saline IV at 1 50 mL an hour norepinephrine at 1 [place] per gram per minute propofol at 50 mics per kilogram per minute insulin drip at 3 units an hour and vital AF with a rate of 45 and a goal of 45. Because of that because of hypernatremia, have to add some free water flushes. Her other medical history includes chronic hypoxemic and hypercapnic respiratory failure secondary to pickwickian syndrome , sleep apnea syndrome, and COPD. In addition, the patient has hypovolemic shock, acute kidney injury secondary to ATN, hypernatremia hypotension insulin- dependent diabetes mellitus COPD morbid obesity sleep apnea syndrome diabetic neuropathy hypertension hyperlipidemia DJD and gout and hypothyroidism. Progress note dated 10/11/2017 This is a 52-year-old obese female who was admitted with a diagnosis of respiratory failure and acute kidney injury. She was admitted on the . She was intubated today later on the . She remains on the ventilator. She' s not made much or any progress. The patient was initially on BiPAP but failed BiPAP. The patient will be evaluated by cardiothoracic surgery for early tracheostomy and PEG tube placement given her many episodes of respiratory failure. In addition to morbid obesity and severe COPD, she has history of pickwickian syndrome and sleep apnea syndrome. Most of the time she is BiPAP dependent. We will do a daily interruption of sedation today and evaluate her for a spontaneous breathing trial. Currently, the patient's on the assist control mode rate of 18, tidal volume 500, FiO2 40%, PEEP of 5. Arterial blood gases show a PaO2 of 68 PaCO2 of 58 and pH 7.39. She's currently on an insulin drip at 4 units an hour saline IV at 100 mL an hour propofol at 50 mics because kilogram per minute and tube feeds with vital AF at 55 with a goal of 55 mL an hour. Objective - Vital Signs Vital signs: Vital Signs Temp 98.7 F 10/11/17 08:00 Pulse 110 H 10/11/17 08:00 Resp 20 10/11/17 08:00 BP 64/48 10/08/17 15:15 Pulse Ox 95 10/11/17 08:00 Intake & Output 10/10/17 10/11/17 10/11/17 18:59 06:59 18:59 Intake Total 3408.656 4002.106 721.833 Output Total 1715 1680 400 Balance 6959.974 9935.106 321.833 Weight 242.6 kg Intake: IV 1386 1236 206 Sodium Chloride 0.9% 1, 1350 1200 200 000 ml @ 100 mls/hr IV . Q10H SARAH Rx#:[id number] pressure bag 36 36 6 Intake, IV Titration 672.656 956.106 5.833 Amount Insulin Regular 100 unit 41.800 57.749 5.833 In Sodium Chloride 0.9% 100 ml @ Per Protocol IV .Q0M SARAH Rx#:[id number] Norepinephrin 16 mg-0.9% 3.736 Ns Pmx 16 mg In 250 ml @ Titrate IV .Q0M SARAH Rx#: [id number] Propofol 1,000 mg In 627.12 898.357 Empty Bag 1 bag @ Titrate IV .Q0M SARAH Rx#: [id number] Tube Feeding 930 880 110 Other 420 930 400 Output: Urine 1715 1680 400 Other: Voiding Method Indwelling Catheter Indwelling Catheter ABP, PAP, CO, CI - Last Documented Arterial Blood Pressure 172/73 - Exam No acute distress, oral endotracheal tube and NG tube noted. The patient is sedated. HEENT examination is grossly unremarkable. Mucous membranes are moist. No oral lesions. Neck supple. Full range of motion. No adenopathy thyromegaly or neck vein distention. Cardiovascular examination reveals regular rhythm rate. S1-S2 normal. No S3 or S4. No discernible murmur noted. Heart sounds are distant. Lungs reveal coarse bilateral breath sounds. Breath sounds are diminished. No wheezes or rhonchi. Abdomen obese, and bowel sounds are noted. No masses or tenderness appreciated.. Extremities are intact. Slight edema noted. Skin is without rash or lesion. Neurologic examination could not be adequately assessed as patient is sedated. - Labs CBC & Chem 7: 10/11/17 05:18 10/11/17 04:31 Labs: Abnormal Lab Results - Last 24 Hours (Table) 10/10/17 10/10/17 10/10/17 Range/Units 09:17 10:06 11:14 WBC (3.8-10.6) k/uL RBC (3.80-5.40) m/uL Hgb (11.4-16.0) gm/dL Hct (34.0-46.0) % MCHC (31.0-37.0) g/dL RDW (11.5-15.5) % Plt Count (150-450) k/uL Lymphocytes # (1.0-4.8) k/uL ABG pCO2 (35-45) mmHg ABG pO2 (83-108) mmHg ABG HCO3 (21-25) mmol/L ABG Total CO2 (19-24) mmol/L ABG O2 Saturation (94-97) % Sodium (137-145) mmol/L Chloride (98-107) mmol/L Carbon Dioxide (22-30) mmol/L BUN (7-17) mg/dL Glucose (74-99) mg/dL POC Glucose (mg/dL) 154 H 160 H 147 H (75-99) mg/dL 10/10/17 10/10/17 10/10/17 Range/Units 12:10 13:04 14:10 WBC (3.8-10.6) k/uL RBC (3.80-5.40) m/uL Hgb (11.4-16.0) gm/dL Hct (34.0-46.0) % MCHC (31.0-37.0) g/dL RDW (11.5-15.5) % Plt Count (150-450) k/uL Lymphocytes # (1.0-4.8) k/uL ABG pCO2 (35-45) mmHg ABG pO2 (83-108) mmHg ABG HCO3 (21-25) mmol/L ABG Total CO2 (19-24) mmol/L ABG O2 Saturation (94-97) % Sodium (137-145) mmol/L Chloride (98-107) mmol/L Carbon Dioxide (22-30) mmol/L BUN (7-17) mg/dL Glucose (74-99) mg/dL POC Glucose (mg/dL) 165 H 170 H 177 H (75-99) mg/dL 10/10/17 10/10/17 10/10/17 Range/Units 15:10 16:07 17:04 WBC (3.8-10.6) k/uL RBC (3.80-5.40) m/uL Hgb (11.4-16.0) gm/dL Hct (34.0-46.0) % MCHC (31.0-37.0) g/dL RDW (11.5-15.5) % Plt Count (150-450) k/uL Lymphocytes # (1.0-4.8) k/uL ABG pCO2 (35-45) mmHg ABG pO2 (83-108) mmHg ABG HCO3 (21-25) mmol/L ABG Total CO2 (19-24) mmol/L ABG O2 Saturation (94-97) % Sodium (137-145) mmol/L Chloride (98-107) mmol/L Carbon Dioxide (22-30) mmol/L BUN (7-17) mg/dL Glucose (74-99) mg/dL POC Glucose (mg/dL) 191 H 188 H 182 H (75-99) mg/dL 10/10/17 10/10/17 10/10/17 Range/Units 18:05 19:08 20:07 WBC (3.8-10.6) k/uL RBC (3.80-5.40) m/uL Hgb (11.4-16.0) gm/dL Hct (34.0-46.0) % MCHC (31.0-37.0) g/dL RDW (11.5-15.5) % Plt Count (150-450) k/uL Lymphocytes # (1.0-4.8) k/uL ABG pCO2 (35-45) mmHg ABG pO2 (83-108) mmHg ABG HCO3 (21-25) mmol/L ABG Total CO2 (19-24) mmol/L ABG O2 Saturation (94-97) % Sodium (137-145) mmol/L Chloride (98-107) mmol/L Carbon Dioxide (22-30) mmol/L BUN (7-17) mg/dL Glucose (74-99) mg/dL POC Glucose (mg/dL) 157 H 152 H 136 H (75-99) mg/dL 10/10/17 10/10/17 10/10/17 Range/Units 21:02 21:36 22:08 WBC (3.8-10.6) k/uL RBC (3.80-5.40) m/uL Hgb (11.4-16.0) gm/dL Hct (34.0-46.0) % MCHC (31.0-37.0) g/dL RDW (11.5-15.5) % Plt Count (150-450) k/uL Lymphocytes # (1.0-4.8) k/uL ABG pCO2 (35-45) mmHg ABG pO2 (83-108) mmHg ABG HCO3 (21-25) mmol/L ABG Total CO2 (19-24) mmol/L ABG O2 Saturation (94-97) % Sodium (137-145) mmol/L Chloride (98-107) mmol/L Carbon Dioxide (22-30) mmol/L BUN (7-17) mg/dL Glucose (74-99) mg/dL POC Glucose (mg/dL) 163 H 168 H 172 H (75-99) mg/dL 10/10/17 10/10/17 10/11/17 Range/Units 23:13 23:59 01:03 WBC (3.8-10.6) k/uL RBC (3.80-5.40) m/uL Hgb (11.4-16.0) gm/dL Hct (34.0-46.0) % MCHC (31.0-37.0) g/dL RDW (11.5-15.5) % Plt Count (150-450) k/uL Lymphocytes # (1.0-4.8) k/uL ABG pCO2 (35-45) mmHg ABG pO2 (83-108) mmHg ABG HCO3 (21-25) mmol/L ABG Total CO2 (19-24) mmol/L ABG O2 Saturation (94-97) % Sodium (137-145) mmol/L Chloride (98-107) mmol/L Carbon Dioxide (22-30) mmol/L BUN (7-17) mg/dL Glucose (74-99) mg/dL POC Glucose (mg/dL) 174 H 199 H 202 H (75-99) mg/dL 10/11/17 10/11/17 10/11/17 Range/Units 02:17 03:25 04:27 WBC (3.8-10.6) k/uL RBC (3.80-5.40) m/uL Hgb (11.4-16.0) gm/dL Hct (34.0-46.0) % MCHC (31.0-37.0) g/dL RDW (11.5-15.5) % Plt Count (150-450) k/uL Lymphocytes # (1.0-4.8) k/uL ABG pCO2 (35-45) mmHg ABG pO2 (83-108) mmHg ABG HCO3 (21-25) mmol/L ABG Total CO2 (19-24) mmol/L ABG O2 Saturation (94-97) % Sodium (137-145) mmol/L Chloride (98-107) mmol/L Carbon Dioxide (22-30) mmol/L BUN (7-17) mg/dL Glucose (74-99) mg/dL POC Glucose (mg/dL) 192 H 187 H 161 H (75-99) mg/dL 10/11/17 10/11/17 10/11/17 Range/Units 04:31 04:31 04:55 WBC 2.4 L (3.8-10.6) k/uL RBC 2.34 L (3.80-5.40) m/uL Hgb 6.1 L* D (11.4-16.0) gm/dL Hct 21.4 L (34.0-46.0) % MCHC 28.5 L (31.0-37.0) g/dL RDW 15.9 H (11.5-15.5) % Plt Count 117 L (150-450) k/uL Lymphocytes # 0.4 L (1.0-4.8) k/uL ABG pCO2 58 H (35-45) mmHg ABG pO2 68 L (83-108) mmHg ABG HCO3 36 H (21-25) mmol/L ABG Total CO2 37 H (19-24) mmol/L ABG O2 Saturation 93.2 L (94-97) % Sodium 151 H (137-145) mmol/L Chloride 111 H (98-107) mmol/L Carbon Dioxide 36 H (22-30) mmol/L BUN 28 H (7-17) mg/dL Glucose 153 H (74-99) mg/dL POC Glucose (mg/dL) (75-99) mg/dL 10/11/17 10/11/17 10/11/17 Range/Units 05:16 05:18 06:06 WBC (3.8-10.6) k/uL RBC 3.24 L (3.80-5.40) m/uL Hgb 9.1 L D (11.4-16.0) gm/dL Hct 29.0 L (34.0-46.0) % MCHC (31.0-37.0) g/dL RDW 15.8 H (11.5-15.5) % Plt Count (150-450) k/uL Lymphocytes # (1.0-4.8) k/uL ABG pCO2 (35-45) mmHg ABG pO2 (83-108) mmHg ABG HCO3 (21-25) mmol/L ABG Total CO2 (19-24) mmol/L ABG O2 Saturation (94-97) % Sodium (137-145) mmol/L Chloride (98-107) mmol/L Carbon Dioxide (22-30) mmol/L BUN (7-17) mg/dL Glucose (74-99) mg/dL POC Glucose (mg/dL) 152 H 160 H (75-99) mg/dL 10/11/17 10/11/17 Range/Units 07:15 08:17 WBC (3.8-10.6) k/uL RBC (3.80-5.40) m/uL Hgb (11.4-16.0) gm/dL Hct (34.0-46.0) % MCHC (31.0-37.0) g/dL RDW (11.5-15.5) % Plt Count (150-450) k/uL Lymphocytes # (1.0-4.8) k/uL ABG pCO2 (35-45) mmHg ABG pO2 (83-108) mmHg ABG HCO3 (21-25) mmol/L ABG Total CO2 (19-24) mmol/L ABG O2 Saturation (94-97) % Sodium (137-145) mmol/L Chloride (98-107) mmol/L Carbon Dioxide (22-30) mmol/L BUN (7-17) mg/dL Glucose (74-99) mg/dL POC Glucose (mg/dL) 149 H 145 H (75-99) mg/dL Microbiology - Last 24 Hours (Table) 10/09/17 00:18 Gram Stain - Final Sputum Sputum Culture - Final 10/09/17 02:35 Blood Culture - Preliminary Blood No Growth after 48 hours 10/09/17 02:15 Blood Culture - Preliminary Blood No Growth after 48 hours Assessment and Plan Assessment: Assessment Acute on chronic hypoxemic and hypercapnic respiratory failure secondary to COPD morbid obesity sleep apnea syndrome and pickwickian syndrome Hypovolemic shock Acute kidney injury, secondary to acute tubular necrosis Hypernatremia Hypotension Diabetes mellitus COPD Sleep apnea syndrome Pickwickian syndrome, secondary to morbid obesity. Diabetic neuropathy Hypertension Hyperlipidemia DJD Gout Hypothyroidism Plan: Plan dated 10/10/2017 The patient's overall prognosis is poor. The patient's FiO2 will be dropped from 50-40%. The patient's norepinephrine will be weaned off. The patient will continue with tube feeds. The patient will have free water added to the regimen at 200 mL every 4 hours. We'll talk to the family about CODE STATUS. In addition, the patient should have an early tracheostomy and PEG tube even her multiple episodes of respiratory failure. Additional recommendations and suggestions are forthcoming. Prognosis is poor meds labs and x-rays are all reviewed. Plan dated 10/11/2017 Overall, patient's doing about the same. The patient's of sedation will be held and will do a daily eruption of sedation With the potential for a spontaneous breathing trial. The patient's vent settings were adjusted accordingly yesterday. Her gas exchange is reasonable. She's pretty much at baseline. She is a PaCO2 retainer. Last cardiothoracic surgeons to see her for possible tracheostomy and PEG tube placement. Her family has been notified. They're in agreement with this. Additional recommendations and suggestions are forthcoming. Overall prognosis is poor. Labs x-rays a medications are all reviewed. Critical care time 33 minutes Time with Patient: Greater than 30
[2017-10-11 09:05] LABS: Glucose,Whole Blood 145 mg/dL (75-99)
[2017-10-11 09:11] LABS: ABG Base Excess 9.6 mmol/L; ABG HCO3 35 mmol/L (21-25); ABG Oxygen Saturation 89.6 % (94-97); ABG PCO2 62 mmHg (35-45); ABG PH 7.36 (7.35-7.45); ABG PO2 60 mmHg (83-108); ABG TCO2 37 mmol/L (19-24)
[2017-10-11] MEDS: DEXTROSE 5% IN WATER 1,000 ML IV SCH (09:57)
[2017-10-11 10:06] LABS: Glucose,Whole Blood 149 mg/dL (75-99)
[2017-10-11] MEDS: METOPROLOL TARTRATE 12.5 MG TAB PO SCH ×3 (10:13→20:57)
--- NOTE | 2017-10-11 10:16 | XR ---
EXAMINATION TYPE: XR chest 1V portable DATE OF EXAM: 10/11/2017 COMPARISON: 10/10/2016 HISTORY: Endotracheal tube placement TECHNIQUE: Single frontal view of the chest is obtained. FINDINGS: There is persistent bibasilar airspace disease and platelike left subsegmental atelectasis within the midlung. Remainder the lungs are clear. Endotracheal tube and enteric tube are satisfacto ry in position and appear unchanged from the prior. Cardiac silhouette is enlarged. Osseous structure s appear intact. IMPRESSION: Bibasilar airspace disease that may represent atelectasis or pneumonia and left midlung subsegmental atelectasis.
--- NOTE | 2017-10-11 10:45 | P.PN ---
Subjective Patient is seen in follow-up for acute kidney injury. Her creatinine was greater than 5 on admission and is down to 0.8 today. She is nonoliguric. She was transferred to the intensive care unit on October 08 due to respiratory distress and is currently intubated and sedated. Levophed has been discontinued. Fluids were changed to D5W at 100 mL an hour. Sodium level is stable at 151 this morning. She is also receiving tube feeds. Vital signs are stable. General: The patient appeared well nourished and normally developed. Currently intubated. HEENT: Head exam is unremarkable. Neck is without jugular venous distension. LUNGS: Lungs are clear to auscultation and percussion. Breath sounds decreased. HEART: Rate and Rhythm are regular. First and second heart sounds normal. No murmurs, rubs or gallops. ABDOMEN: Abdominal exam reveals normal bowel sounds. Non-tender and non- distended. No evidence of peritonitis. EXTREMITITES: No clubbing, cyanosis, or edema. Objective - Vital Signs Vital signs: Vital Signs Temp 98.7 F 10/11/17 08:00 Pulse 110 H 10/11/17 10:00 Resp 18 10/11/17 10:00 BP 64/48 10/08/17 15:15 Pulse Ox 91 L 10/11/17 10:00 Intake & Output 10/10/17 10/11/17 10/11/17 18:59 06:59 18:59 Intake Total 3408.656 4002.106 1247.833 Output Total 1715 1680 615 Balance 7244.892 9958.106 632.833 Weight 242.6 kg 242.6 kg Intake: IV 1386 1236 412 Dextrose 5% in Water 1, 100 000 ml @ 100 mls/hr IV . Q10H SARAH Rx#:[id number] Sodium Chloride 0.9% 1, 1350 1200 300 000 ml @ 100 mls/hr IV . Q10H SARAH Rx#:[id number] pressure bag 36 36 12 Intake, IV Titration 672.656 956.106 105.833 Amount Insulin Regular 100 unit 41.800 57.749 5.833 In Sodium Chloride 0.9% 100 ml @ Per Protocol IV .Q0M SARAH Rx#:[id number] Norepinephrin 16 mg-0.9% 3.736 Ns Pmx 16 mg In 250 ml @ Titrate IV .Q0M SARAH Rx#: [id number] Propofol 1,000 mg In 627.12 898.357 100 Empty Bag 1 bag @ Titrate IV .Q0M SARAH Rx#: [id number] Tube Feeding 930 880 330 Other 420 930 400 Output: Urine 1715 1680 615 Other: Voiding Method Indwelling Catheter Indwelling Catheter Indwelling Catheter ABP, PAP, CO, CI - Last Documented Arterial Blood Pressure 137/70 - Labs CBC & Chem 7: 10/11/17 05:18 10/11/17 04:31 Labs: Abnormal Lab Results - Last 24 Hours (Table) 10/10/17 10/10/17 10/10/17 Range/Units 11:14 12:10 13:04 WBC (3.8-10.6) k/uL RBC (3.80-5.40) m/uL Hgb (11.4-16.0) gm/dL Hct (34.0-46.0) % MCHC (31.0-37.0) g/dL RDW (11.5-15.5) % Plt Count (150-450) k/uL Lymphocytes # (1.0-4.8) k/uL ABG pCO2 (35-45) mmHg ABG pO2 (83-108) mmHg ABG HCO3 (21-25) mmol/L ABG Total CO2 (19-24) mmol/L ABG O2 Saturation (94-97) % Sodium (137-145) mmol/L Chloride (98-107) mmol/L Carbon Dioxide (22-30) mmol/L BUN (7-17) mg/dL Glucose (74-99) mg/dL POC Glucose (mg/dL) 147 H 165 H 170 H (75-99) mg/dL 10/10/17 10/10/17 10/10/17 Range/Units 14:10 15:10 16:07 WBC (3.8-10.6) k/uL RBC (3.80-5.40) m/uL Hgb (11.4-16.0) gm/dL Hct (34.0-46.0) % MCHC (31.0-37.0) g/dL RDW (11.5-15.5) % Plt Count (150-450) k/uL Lymphocytes # (1.0-4.8) k/uL ABG pCO2 (35-45) mmHg ABG pO2 (83-108) mmHg ABG HCO3 (21-25) mmol/L ABG Total CO2 (19-24) mmol/L ABG O2 Saturation (94-97) % Sodium (137-145) mmol/L Chloride (98-107) mmol/L Carbon Dioxide (22-30) mmol/L BUN (7-17) mg/dL Glucose (74-99) mg/dL POC Glucose (mg/dL) 177 H 191 H 188 H (75-99) mg/dL 10/10/17 10/10/17 10/10/17 Range/Units 17:04 18:05 19:08 WBC (3.8-10.6) k/uL RBC (3.80-5.40) m/uL Hgb (11.4-16.0) gm/dL Hct (34.0-46.0) % MCHC (31.0-37.0) g/dL RDW (11.5-15.5) % Plt Count (150-450) k/uL Lymphocytes # (1.0-4.8) k/uL ABG pCO2 (35-45) mmHg ABG pO2 (83-108) mmHg ABG HCO3 (21-25) mmol/L ABG Total CO2 (19-24) mmol/L ABG O2 Saturation (94-97) % Sodium (137-145) mmol/L Chloride (98-107) mmol/L Carbon Dioxide (22-30) mmol/L BUN (7-17) mg/dL Glucose (74-99) mg/dL POC Glucose (mg/dL) 182 H 157 H 152 H (75-99) mg/dL 10/10/17 10/10/17 10/10/17 Range/Units 20:07 21:02 21:36 WBC (3.8-10.6) k/uL RBC (3.80-5.40) m/uL Hgb (11.4-16.0) gm/dL Hct (34.0-46.0) % MCHC (31.0-37.0) g/dL RDW (11.5-15.5) % Plt Count (150-450) k/uL Lymphocytes # (1.0-4.8) k/uL ABG pCO2 (35-45) mmHg ABG pO2 (83-108) mmHg ABG HCO3 (21-25) mmol/L ABG Total CO2 (19-24) mmol/L ABG O2 Saturation (94-97) % Sodium (137-145) mmol/L Chloride (98-107) mmol/L Carbon Dioxide (22-30) mmol/L BUN (7-17) mg/dL Glucose (74-99) mg/dL POC Glucose (mg/dL) 136 H 163 H 168 H (75-99) mg/dL 10/10/17 10/10/17 10/10/17 Range/Units 22:08 23:13 23:59 WBC (3.8-10.6) k/uL RBC (3.80-5.40) m/uL Hgb (11.4-16.0) gm/dL Hct (34.0-46.0) % MCHC (31.0-37.0) g/dL RDW (11.5-15.5) % Plt Count (150-450) k/uL Lymphocytes # (1.0-4.8) k/uL ABG pCO2 (35-45) mmHg ABG pO2 (83-108) mmHg ABG HCO3 (21-25) mmol/L ABG Total CO2 (19-24) mmol/L ABG O2 Saturation (94-97) % Sodium (137-145) mmol/L Chloride (98-107) mmol/L Carbon Dioxide (22-30) mmol/L BUN (7-17) mg/dL Glucose (74-99) mg/dL POC Glucose (mg/dL) 172 H 174 H 199 H (75-99) mg/dL 10/11/17 10/11/17 10/11/17 Range/Units 01:03 02:17 03:25 WBC (3.8-10.6) k/uL RBC (3.80-5.40) m/uL Hgb (11.4-16.0) gm/dL Hct (34.0-46.0) % MCHC (31.0-37.0) g/dL RDW (11.5-15.5) % Plt Count (150-450) k/uL Lymphocytes # (1.0-4.8) k/uL ABG pCO2 (35-45) mmHg ABG pO2 (83-108) mmHg ABG HCO3 (21-25) mmol/L ABG Total CO2 (19-24) mmol/L ABG O2 Saturation (94-97) % Sodium (137-145) mmol/L Chloride (98-107) mmol/L Carbon Dioxide (22-30) mmol/L BUN (7-17) mg/dL Glucose (74-99) mg/dL POC Glucose (mg/dL) 202 H 192 H 187 H (75-99) mg/dL 10/11/17 10/11/17 10/11/17 Range/Units 04:27 04:31 04:31 WBC 2.4 L (3.8-10.6) k/uL RBC 2.34 L (3.80-5.40) m/uL Hgb 6.1 L* D (11.4-16.0) gm/dL Hct 21.4 L (34.0-46.0) % MCHC 28.5 L (31.0-37.0) g/dL RDW 15.9 H (11.5-15.5) % Plt Count 117 L (150-450) k/uL Lymphocytes # 0.4 L (1.0-4.8) k/uL ABG pCO2 (35-45) mmHg ABG pO2 (83-108) mmHg ABG HCO3 (21-25) mmol/L ABG Total CO2 (19-24) mmol/L ABG O2 Saturation (94-97) % Sodium 151 H (137-145) mmol/L Chloride 111 H (98-107) mmol/L Carbon Dioxide 36 H (22-30) mmol/L BUN 28 H (7-17) mg/dL Glucose 153 H (74-99) mg/dL POC Glucose (mg/dL) 161 H (75-99) mg/dL 10/11/17 10/11/17 10/11/17 Range/Units 04:55 05:16 05:18 WBC (3.8-10.6) k/uL RBC 3.24 L (3.80-5.40) m/uL Hgb 9.1 L D (11.4-16.0) gm/dL Hct 29.0 L (34.0-46.0) % MCHC (31.0-37.0) g/dL RDW 15.8 H (11.5-15.5) % Plt Count (150-450) k/uL Lymphocytes # (1.0-4.8) k/uL ABG pCO2 58 H (35-45) mmHg ABG pO2 68 L (83-108) mmHg ABG HCO3 36 H (21-25) mmol/L ABG Total CO2 37 H (19-24) mmol/L ABG O2 Saturation 93.2 L (94-97) % Sodium (137-145) mmol/L Chloride (98-107) mmol/L Carbon Dioxide (22-30) mmol/L BUN (7-17) mg/dL Glucose (74-99) mg/dL POC Glucose (mg/dL) 152 H (75-99) mg/dL 10/11/17 10/11/17 10/11/17 Range/Units 06:06 07:15 08:17 WBC (3.8-10.6) k/uL RBC (3.80-5.40) m/uL Hgb (11.4-16.0) gm/dL Hct (34.0-46.0) % MCHC (31.0-37.0) g/dL RDW (11.5-15.5) % Plt Count (150-450) k/uL Lymphocytes # (1.0-4.8) k/uL ABG pCO2 (35-45) mmHg ABG pO2 (83-108) mmHg ABG HCO3 (21-25) mmol/L ABG Total CO2 (19-24) mmol/L ABG O2 Saturation (94-97) % Sodium (137-145) mmol/L Chloride (98-107) mmol/L Carbon Dioxide (22-30) mmol/L BUN (7-17) mg/dL Glucose (74-99) mg/dL POC Glucose (mg/dL) 160 H 149 H 145 H (75-99) mg/dL 10/11/17 10/11/17 10/11/17 Range/Units 09:03 09:07 10:04 WBC (3.8-10.6) k/uL RBC (3.80-5.40) m/uL Hgb (11.4-16.0) gm/dL Hct (34.0-46.0) % MCHC (31.0-37.0) g/dL RDW (11.5-15.5) % Plt Count (150-450) k/uL Lymphocytes # (1.0-4.8) k/uL ABG pCO2 62 H (35-45) mmHg ABG pO2 60 L (83-108) mmHg ABG HCO3 35 H (21-25) mmol/L ABG Total CO2 37 H (19-24) mmol/L ABG O2 Saturation 89.6 L (94-97) % Sodium (137-145) mmol/L Chloride (98-107) mmol/L Carbon Dioxide (22-30) mmol/L BUN (7-17) mg/dL Glucose (74-99) mg/dL POC Glucose (mg/dL) 145 H 149 H (75-99) mg/dL Microbiology - Last 24 Hours (Table) 10/09/17 00:18 Gram Stain - Final Sputum Sputum Culture - Final 10/09/17 02:35 Blood Culture - Preliminary Blood No Growth after 48 hours 10/09/17 02:15 Blood Culture - Preliminary Blood No Growth after 48 hours Assessment and Plan Plan: Assessment: #1. Acute kidney injury secondary to ischemic ATN secondary to hypotension, nonsteroidals and diuresis. Creatinine was 5.6 at an outside facility prior to transfer here and is down to 0.8 today. Urinalysis is quite benign. No evidence of hydronephrosis noted on renal ultrasound. Baseline creatinine is near 1. #2. Hypovolemic hyponatremia. Resolved. She is now hypernatremic due to polyuria and lack of oral water intake. #3. Hypovolemic shock from overdiuresis. Levofed discontinued. #4. Insulin-dependent diabetes mellitus. #5. Hypotension due to diuresis. Cortisol level was noted to be low at 5. Maintained on hydrocortisone. #6. Hyperphosphatemia secondary to acute kidney injury. Improved with diuresis. #7. Polyuria due to recovering renal function. #8. Hypomagnesemia due to poor nutritional status and polyuria. Plan: I will decreased rate of D5W to 50 mL an hour. Increase free water flushes to 400 mL every 4 hours with tube feeds. Avoid nephrotoxic agents and hypotensive episodes. Continue to monitor renal function and urine output closely. Repeat electrolytes in the morning. Decrease hydrocortisone to 50 mg IV once daily. Wean FiO2. Replace magnesium. 2 g IV today. Repeat sodium level this evening.
[2017-10-11 11:03] LABS: Glucose,Whole Blood 172 mg/dL (75-99)
[2017-10-11 12:12] LABS: Glucose,Whole Blood 207 mg/dL (75-99)
--- NOTE | 2017-10-11 12:32 | P.GSCN ---
<Argelia Bell - Last Filed: 10/11/17 12:25> History of Present Illness Consult date: 10/11/17 Reason for Consult: Placement of tracheostomy and percutaneous endoscopic gastrostomy tube. Requesting physician: Miguel Laurent History of present illness: This 52-year-old female patient with multiple medical comorbidities including COPD on home O2 around the clock, chronic hypoxic hypercapnic respiratory failure, obesity, obstructive sleep apnea, obesity-induced hypoventilation syndrome, and congestive heart failure presented to [facility] on August 06 as a transfer from [facility] for renal failure. Apparently her creatinine had been 5.6 without a history of renal failure. She was given IV fluids and transferred for more intensive evaluation and treatment. She developed hypovolemic shock, was intubated the evening of October 08, and has been unable to be weaned from mechanical ventilation successfully. Due to her current and previous episodes of respiratory failure Dr. Armendariz was consulted for placement of a tracheostomy and percutaneous endoscopic gastrostomy tube. Review of Systems ROS unobtainable: due to endotracheal tube Past Medical History Past Medical History: Asthma, Chest Pain / Angina, Heart Failure, COPD, Diabetes Mellitus, Hyperlipidemia, Hypertension, Neurologic Disorder, Osteoarthritis (OA), Pneumonia, Respiratory Disorder, Sleep Apnea/CPAP/BIPAP, Syncope, Thyroid Disorder Additional Past Medical History / Comment(s): GOUT, NEUROPATHY-FEET, sleep apnea bi pap at home, has home 02 4 liters n/c atc, past resp failure, hypothyroid,,lt lower lobe nodule-radiation therapy(,unsuccesful bx) History of Any Multi-Drug Resistant Organisms: None Reported Past Surgical History: Section Additional Past Surgical History / Comment(s): LT CARPAL TUNNEL, 3 unsuccessful attempts at lt lobe bx Past Anesthesia/Blood Transfusion Reactions: No Reported Reaction Additional Past Anesthesia/Blood Transfusion Reaction / Comm: CLAUSTERPHOBIA Past Psychological History: No Psychological Hx Reported Smoking Status: Former smoker Past Alcohol Use History: None Reported Additional Past Alcohol Use History / Comment(s): STARTED SMOKING 1975-STOPPED 2007 Past Drug Use History: None Reported - Past Family History Father Family Medical History: COPD, Diabetes Mellitus Mother History Unknown: Yes Family Medical History: No Reported History Additional Family Medical History / Comment(s): AT AGE 43 FROM SUICIDE Medications and Allergies Home Medications Medication Instructions Recorded Confirmed Type Nitroglycerin Sl Tabs [Nitrostat] 0.4 mg SUBLINGUAL Q5M PRN 08/20/14 10/07/17 History Febuxostat [Uloric] 80 mg PO DAILY 05/04/16 10/07/17 History Montelukast [Singulair] 10 mg PO HS 07/18/16 10/07/17 History Budesonide [Pulmicort] 0.5 mg INHALATION RT-BID #1 nebu 11/23/16 10/07/17 Rx Gabapentin [Neurontin] 300 mg PO BID #30 cap 11/23/16 10/07/17 Rx Orphenadrine Citrate 100 mg PO BID 07/09/17 10/07/17 History Ferrous Sulfate [Iron (65 MG 325 mg PO DAILY #30 tab 07/12/17 10/07/17 Rx Elemental)] Metolazone [Zaroxolyn] 5 mg PO DAILY #0 07/22/17 10/07/17 Rx traMADol HCl [Ultram] 50 mg PO Q12H PRN #10 tab 07/22/17 10/07/17 Rx Aspirin 81 mg PO DAILY 10/01/17 10/07/17 History Escitalopram [Lexapro] 10 mg PO HS 10/01/17 10/07/17 History Famotidine [Pepcid] 20 mg PO DAILY 10/01/17 10/07/17 History Furosemide [Lasix] 40 mg PO TID@0700,1300,1700 10/01/17 10/07/17 History Insulin Glargine [Lantus] 120 unit SQ DAILY 10/01/17 10/07/17 History Insulin Lispro [humaLOG Kwikpen] See Protocol SQ AC-TID 10/01/17 10/07/17 History Ipratropium-Albuterol Nebulize 3 ml INHALATION RT-TID 10/01/17 10/07/17 History [Duoneb 0.5 mg-3 mg/3 ml Soln] Lisinopril [Zestril] 5 mg PO DAILY 10/01/17 10/07/17 History Loratadine-Pseudoeph 10-240 mg 1 tab PO DAILY 10/01/17 10/07/17 History [Claritin-D 24 Hr] Meloxicam [Mobic] 15 mg PO DAILY 10/01/17 10/07/17 History Metoprolol Succinate [Toprol XL] 25 mg PO DAILY 10/01/17 10/07/17 History Potassium Chloride [K-Tab ER] 20 meq PO TID 10/01/17 10/07/17 History Pregabalin [Lyrica] 150 mg PO BID 10/01/17 10/07/17 History Ranitidine HCl [Zantac] 150 mg PO BID 10/01/17 10/07/17 History Simvastatin [Zocor] 80 mg PO HS 10/01/17 10/07/17 History metFORMIN HCL [Glucophage] 1,000 mg PO BID 10/01/17 10/07/17 History predniSONE See Taper PO DIRECTED 10/01/17 10/07/17 History Levofloxacin [Levaquin] 500 mg PO DAILY 5 Days #5 tab 10/03/17 10/07/17 Rx Allergies Allergy/AdvReac Type Severity Reaction Status Date / Time No Known Allergies Allergy Verified 10/07/17 20:55 Surgical - Exam Vital Signs Temp Pulse Resp BP Pulse Ox 98.2 F 81 20 98/55 93 L 10/07/17 20:25 10/07/17 20:25 10/07/17 20:25 10/07/17 20:25 10/07/17 20:25 - General well developed, well nourished, no distress, chronically ill, obese - Eyes PERRL - Neck Very thick neck no masses, no bruits, trachea midline - Respiratory Lungs sounds diminished bilaterally with coarse breath sounds. Respirations even, nonlabored on mechanical ventilation. Current ventilator settings assist control mode, FiO2 40%, tidal volume 500, respiratory rate 18, PEEP of 5. 8.0 ET tube present, 23 at the lip. - Cardiovascular S1, S2 present. Tachycardia but regular rate and rhythm, sinus tach on telemetry. Palpable radial pulses, Doppler bilateral lower extremity pulses. Generalized edema present. SCDs present. - Abdomen OG tube present, tube feedings infusing at 55 mL/h. Abdomen: soft, non tender, bowel sounds - Genitourinary Deferred - Rectum Deferred - Integumentary no rash, no growths - Neurologic Sedated on mechanical ventilation. Per nursing does open eyes, follow commands off sedation. Results - Labs 10/11/17 05:18 10/11/17 04:31 Abnormal Lab Results - Last 24 Hours (Table) 10/10/17 10/10/17 10/10/17 Range/Units 11:14 12:10 13:04 WBC (3.8-10.6) k/uL RBC (3.80-5.40) m/uL Hgb (11.4-16.0) gm/dL Hct (34.0-46.0) % MCHC (31.0-37.0) g/dL RDW (11.5-15.5) % Plt Count (150-450) k/uL Lymphocytes # (1.0-4.8) k/uL ABG pCO2 (35-45) mmHg ABG pO2 (83-108) mmHg ABG HCO3 (21-25) mmol/L ABG Total CO2 (19-24) mmol/L ABG O2 Saturation (94-97) % Sodium (137-145) mmol/L Chloride (98-107) mmol/L Carbon Dioxide (22-30) mmol/L BUN (7-17) mg/dL Glucose (74-99) mg/dL POC Glucose (mg/dL) 147 H 165 H 170 H (75-99) mg/dL 10/10/17 10/10/17 10/10/17 Range/Units 14:10 15:10 16:07 WBC (3.8-10.6) k/uL RBC (3.80-5.40) m/uL Hgb (11.4-16.0) gm/dL Hct (34.0-46.0) % MCHC (31.0-37.0) g/dL RDW (11.5-15.5) % Plt Count (150-450) k/uL Lymphocytes # (1.0-4.8) k/uL ABG pCO2 (35-45) mmHg ABG pO2 (83-108) mmHg ABG HCO3 (21-25) mmol/L ABG Total CO2 (19-24) mmol/L ABG O2 Saturation (94-97) % Sodium (137-145) mmol/L Chloride (98-107) mmol/L Carbon Dioxide (22-30) mmol/L BUN (7-17) mg/dL Glucose (74-99) mg/dL POC Glucose (mg/dL) 177 H 191 H 188 H (75-99) mg/dL 10/10/17 10/10/17 10/10/17 Range/Units 17:04 18:05 19:08 WBC (3.8-10.6) k/uL RBC (3.80-5.40) m/uL Hgb (11.4-16.0) gm/dL Hct (34.0-46.0) % MCHC (31.0-37.0) g/dL RDW (11.5-15.5) % Plt Count (150-450) k/uL Lymphocytes # (1.0-4.8) k/uL ABG pCO2 (35-45) mmHg ABG pO2 (83-108) mmHg ABG HCO3 (21-25) mmol/L ABG Total CO2 (19-24) mmol/L ABG O2 Saturation (94-97) % Sodium (137-145) mmol/L Chloride (98-107) mmol/L Carbon Dioxide (22-30) mmol/L BUN (7-17) mg/dL Glucose (74-99) mg/dL POC Glucose (mg/dL) 182 H 157 H 152 H (75-99) mg/dL 10/10/17 10/10/17 10/10/17 Range/Units 20:07 21:02 21:36 WBC (3.8-10.6) k/uL RBC (3.80-5.40) m/uL Hgb (11.4-16.0) gm/dL Hct (34.0-46.0) % MCHC (31.0-37.0) g/dL RDW (11.5-15.5) % Plt Count (150-450) k/uL Lymphocytes # (1.0-4.8) k/uL ABG pCO2 (35-45) mmHg ABG pO2 (83-108) mmHg ABG HCO3 (21-25) mmol/L ABG Total CO2 (19-24) mmol/L ABG O2 Saturation (94-97) % Sodium (137-145) mmol/L Chloride (98-107) mmol/L Carbon Dioxide (22-30) mmol/L BUN (7-17) mg/dL Glucose (74-99) mg/dL POC Glucose (mg/dL) 136 H 163 H 168 H (75-99) mg/dL 10/10/17 10/10/17 10/10/17 Range/Units 22:08 23:13 23:59 WBC (3.8-10.6) k/uL RBC (3.80-5.40) m/uL Hgb (11.4-16.0) gm/dL Hct (34.0-46.0) % MCHC (31.0-37.0) g/dL RDW (11.5-15.5) % Plt Count (150-450) k/uL Lymphocytes # (1.0-4.8) k/uL ABG pCO2 (35-45) mmHg ABG pO2 (83-108) mmHg ABG HCO3 (21-25) mmol/L ABG Total CO2 (19-24) mmol/L ABG O2 Saturation (94-97) % Sodium (137-145) mmol/L Chloride (98-107) mmol/L Carbon Dioxide (22-30) mmol/L BUN (7-17) mg/dL Glucose (74-99) mg/dL POC Glucose (mg/dL) 172 H 174 H 199 H (75-99) mg/dL 10/11/17 10/11/17 10/11/17 Range/Units 01:03 02:17 03:25 WBC (3.8-10.6) k/uL RBC (3.80-5.40) m/uL Hgb (11.4-16.0) gm/dL Hct (34.0-46.0) % MCHC (31.0-37.0) g/dL RDW (11.5-15.5) % Plt Count (150-450) k/uL Lymphocytes # (1.0-4.8) k/uL ABG pCO2 (35-45) mmHg ABG pO2 (83-108) mmHg ABG HCO3 (21-25) mmol/L ABG Total CO2 (19-24) mmol/L ABG O2 Saturation (94-97) % Sodium (137-145) mmol/L Chloride (98-107) mmol/L Carbon Dioxide (22-30) mmol/L BUN (7-17) mg/dL Glucose (74-99) mg/dL POC Glucose (mg/dL) 202 H 192 H 187 H (75-99) mg/dL 10/11/17 10/11/17 10/11/17 Range/Units 04:27 04:31 04:31 WBC 2.4 L (3.8-10.6) k/uL RBC 2.34 L (3.80-5.40) m/uL Hgb 6.1 L* D (11.4-16.0) gm/dL Hct 21.4 L (34.0-46.0) % MCHC 28.5 L (31.0-37.0) g/dL RDW 15.9 H (11.5-15.5) % Plt Count 117 L (150-450) k/uL Lymphocytes # 0.4 L (1.0-4.8) k/uL ABG pCO2 (35-45) mmHg ABG pO2 (83-108) mmHg ABG HCO3 (21-25) mmol/L ABG Total CO2 (19-24) mmol/L ABG O2 Saturation (94-97) % Sodium 151 H (137-145) mmol/L Chloride 111 H (98-107) mmol/L Carbon Dioxide 36 H (22-30) mmol/L BUN 28 H (7-17) mg/dL Glucose 153 H (74-99) mg/dL POC Glucose (mg/dL) 161 H (75-99) mg/dL 10/11/17 10/11/17 10/11/17 Range/Units 04:55 05:16 05:18 WBC (3.8-10.6) k/uL RBC 3.24 L (3.80-5.40) m/uL Hgb 9.1 L D (11.4-16.0) gm/dL Hct 29.0 L (34.0-46.0) % MCHC (31.0-37.0) g/dL RDW 15.8 H (11.5-15.5) % Plt Count (150-450) k/uL Lymphocytes # (1.0-4.8) k/uL ABG pCO2 58 H (35-45) mmHg ABG pO2 68 L (83-108) mmHg ABG HCO3 36 H (21-25) mmol/L ABG Total CO2 37 H (19-24) mmol/L ABG O2 Saturation 93.2 L (94-97) % Sodium (137-145) mmol/L Chloride (98-107) mmol/L Carbon Dioxide (22-30) mmol/L BUN (7-17) mg/dL Glucose (74-99) mg/dL POC Glucose (mg/dL) 152 H (75-99) mg/dL 10/11/17 10/11/17 10/11/17 Range/Units 06:06 07:15 08:17 WBC (3.8-10.6) k/uL RBC (3.80-5.40) m/uL Hgb (11.4-16.0) gm/dL Hct (34.0-46.0) % MCHC (31.0-37.0) g/dL RDW (11.5-15.5) % Plt Count (150-450) k/uL Lymphocytes # (1.0-4.8) k/uL ABG pCO2 (35-45) mmHg ABG pO2 (83-108) mmHg ABG HCO3 (21-25) mmol/L ABG Total CO2 (19-24) mmol/L ABG O2 Saturation (94-97) % Sodium (137-145) mmol/L Chloride (98-107) mmol/L Carbon Dioxide (22-30) mmol/L BUN (7-17) mg/dL Glucose (74-99) mg/dL POC Glucose (mg/dL) 160 H 149 H 145 H (75-99) mg/dL 10/11/17 10/11/17 10/11/17 Range/Units 09:03 09:07 10:04 WBC (3.8-10.6) k/uL RBC (3.80-5.40) m/uL Hgb (11.4-16.0) gm/dL Hct (34.0-46.0) % MCHC (31.0-37.0) g/dL RDW (11.5-15.5) % Plt Count (150-450) k/uL Lymphocytes # (1.0-4.8) k/uL ABG pCO2 62 H (35-45) mmHg ABG pO2 60 L (83-108) mmHg ABG HCO3 35 H (21-25) mmol/L ABG Total CO2 37 H (19-24) mmol/L ABG O2 Saturation 89.6 L (94-97) % Sodium (137-145) mmol/L Chloride (98-107) mmol/L Carbon Dioxide (22-30) mmol/L BUN (7-17) mg/dL Glucose (74-99) mg/dL POC Glucose (mg/dL) 145 H 149 H (75-99) mg/dL Microbiology - Last 24 Hours (Table) 10/09/17 00:18 Gram Stain - Final Sputum Sputum Culture - Final 10/09/17 02:35 Blood Culture - Preliminary Blood No Growth after 48 hours 10/09/17 02:15 Blood Culture - Preliminary Blood No Growth after 48 hours Diabetes panel 10/11/17 Range/Units 04:31 Sodium 151 H (137-145) mmol/L Potassium 3.9 (3.5-5.1) mmol/L Chloride 111 H (98-107) mmol/L Carbon Dioxide 36 H (22-30) mmol/L BUN 28 H (7-17) mg/dL Creatinine 0.80 (0.52-1.04) mg/dL Glucose 153 H (74-99) mg/dL Calcium 8.6 (8.4-10.2) mg/dL Calcium panel 10/11/17 Range/Units 04:31 Calcium 8.6 (8.4-10.2) mg/dL Phosphorus 2.6 (2.5-4.5) mg/dL Pituitary panel 10/11/17 Range/Units 04:31 Sodium 151 H (137-145) mmol/L Potassium 3.9 (3.5-5.1) mmol/L Chloride 111 H (98-107) mmol/L Carbon Dioxide 36 H (22-30) mmol/L BUN 28 H (7-17) mg/dL Creatinine 0.80 (0.52-1.04) mg/dL Glucose 153 H (74-99) mg/dL Calcium 8.6 (8.4-10.2) mg/dL Adrenal panel 10/11/17 Range/Units 04:31 Sodium 151 H (137-145) mmol/L Potassium 3.9 (3.5-5.1) mmol/L Chloride 111 H (98-107) mmol/L Carbon Dioxide 36 H (22-30) mmol/L BUN 28 H (7-17) mg/dL Creatinine 0.80 (0.52-1.04) mg/dL Glucose 153 H (74-99) mg/dL Calcium 8.6 (8.4-10.2) mg/dL - Imaging Chest x-ray: report reviewed, image reviewed Assessment and Plan (1) Acute renal failure Current Visit: Yes Status: Acute Code(s): N17.9 - ACUTE KIDNEY FAILURE, UNSPECIFIED SNOMED Code(s): 21392907 (2) COPD (chronic obstructive pulmonary disease) Current Visit: Yes Status: Chronic Code(s): J44.9 - CHRONIC OBSTRUCTIVE PULMONARY DISEASE, UNSPECIFIED SNOMED Code(s): 98909295 (3) Congestive heart failure Current Visit: Yes Status: Chronic Code(s): I50.9 - HEART FAILURE, UNSPECIFIED SNOMED Code(s): 18449527 (4) Diabetes Current Visit: Yes Status: Chronic Code(s): E11.9 - TYPE 2 DIABETES MELLITUS WITHOUT COMPLICATIONS SNOMED Code(s): 20473468 (5) Hypercapnic respiratory failure, chronic Current Visit: Yes Status: Chronic Code(s): J96.12 - CHRONIC RESPIRATORY FAILURE WITH HYPERCAPNIA SNOMED Code(s): 705308678 (6) Hypertension Current Visit: No Status: Chronic Code(s): I10 - ESSENTIAL (PRIMARY) HYPERTENSION SNOMED Code(s): 45104459 (7) Lower extremity edema Current Visit: Yes Status: Chronic Code(s): R60.0 - LOCALIZED EDEMA SNOMED Code(s): 343592717 (8) Morbid obesity Current Visit: Yes Status: Chronic Code(s): E66.01 - MORBID (SEVERE) OBESITY DUE TO EXCESS CALORIES SNOMED Code(s): 423683559 (9) Obstructive sleep apnea Current Visit: Yes Status: Chronic Code(s): G47.33 - OBSTRUCTIVE SLEEP APNEA (ADULT) (PEDIATRIC) SNOMED Code(s): 76560234 (10) Pickwickian syndrome Current Visit: Yes Status: Chronic Code(s): E66.2 - MORBID (SEVERE) OBESITY WITH ALVEOLAR HYPOVENTILATION SNOMED Code(s): 319133957 Plan: Patient was seen and examined at the bedside. Chart/diagnostics were reviewed. Per nursing family has been notified and is in agreement with placement of tracheostomy and PEG tube. Case discussed with Dr. Armendariz. Plan is for tracheostomy and PEG tube placement tomorrow, October 12. Patient should be nothing by mouth after midnight. Continue medical management of multiple comorbidities per primary care service, continue ventilator management per pulmonology. Thank you Dr. Laurent for this consult. Please let us know if you have any questions. 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 Discuss procedure and risks with patient daughter. She will require an XLT tube due to her obesity. We'll proceed as requested. Surgical - Exam Osteopathic Statement: *. No significant issues noted on an osteopathic structural exam other than those noted in the History and Physical/Consult. Vital Signs Temp Pulse Resp BP Pulse Ox 98.2 F 81 20 98/55 93 L 10/07/17 20:25 10/07/17 20:25 10/07/17 20:25 10/07/17 20:25 10/07/17 20:25 Results - Labs 10/12/17 05:05 10/12/17 05:05 Abnormal Lab Results - Last 24 Hours (Table) 10/11/17 10/11/17 10/11/17 Range/Units 10:04 11:01 12:09 RBC (3.80-5.40) m/uL Hgb (11.4-16.0) gm/dL Hct (34.0-46.0) % MCHC (31.0-37.0) g/dL Lymphocytes # (1.0-4.8) k/uL ABG pCO2 (35-45) mmHg ABG pO2 (83-108) mmHg ABG HCO3 (21-25) mmol/L ABG Total CO2 (19-24) mmol/L ABG O2 Saturation (94-97) % Sodium (137-145) mmol/L Carbon Dioxide (22-30) mmol/L Glucose (74-99) mg/dL POC Glucose (mg/dL) 149 H 172 H 207 H (75-99) mg/dL 10/11/17 10/11/17 10/11/17 Range/Units 13:07 14:17 15:11 RBC (3.80-5.40) m/uL Hgb (11.4-16.0) gm/dL Hct (34.0-46.0) % MCHC (31.0-37.0) g/dL Lymphocytes # (1.0-4.8) k/uL ABG pCO2 (35-45) mmHg ABG pO2 (83-108) mmHg ABG HCO3 (21-25) mmol/L ABG Total CO2 (19-24) mmol/L ABG O2 Saturation (94-97) % Sodium (137-145) mmol/L Carbon Dioxide (22-30) mmol/L Glucose (74-99) mg/dL POC Glucose (mg/dL) 221 H 199 H 183 H (75-99) mg/dL 10/11/17 10/11/17 10/11/17 Range/Units 16:04 17:00 17:03 RBC (3.80-5.40) m/uL Hgb (11.4-16.0) gm/dL Hct (34.0-46.0) % MCHC (31.0-37.0) g/dL Lymphocytes # (1.0-4.8) k/uL ABG pCO2 (35-45) mmHg ABG pO2 (83-108) mmHg ABG HCO3 (21-25) mmol/L ABG Total CO2 (19-24) mmol/L ABG O2 Saturation (94-97) % Sodium 148 H (137-145) mmol/L Carbon Dioxide (22-30) mmol/L Glucose (74-99) mg/dL POC Glucose (mg/dL) 172 H 178 H (75-99) mg/dL 10/11/17 10/11/17 10/11/17 Range/Units 18:00 18:51 20:07 RBC (3.80-5.40) m/uL Hgb (11.4-16.0) gm/dL Hct (34.0-46.0) % MCHC (31.0-37.0) g/dL Lymphocytes # (1.0-4.8) k/uL ABG pCO2 (35-45) mmHg ABG pO2 (83-108) mmHg ABG HCO3 (21-25) mmol/L ABG Total CO2 (19-24) mmol/L ABG O2 Saturation (94-97) % Sodium (137-145) mmol/L Carbon Dioxide (22-30) mmol/L Glucose (74-99) mg/dL POC Glucose (mg/dL) 161 H 142 H 140 H (75-99) mg/dL 10/11/17 10/11/17 10/11/17 Range/Units 21:23 22:16 23:02 RBC (3.80-5.40) m/uL Hgb (11.4-16.0) gm/dL Hct (34.0-46.0) % MCHC (31.0-37.0) g/dL Lymphocytes # (1.0-4.8) k/uL ABG pCO2 (35-45) mmHg ABG pO2 (83-108) mmHg ABG HCO3 (21-25) mmol/L ABG Total CO2 (19-24) mmol/L ABG O2 Saturation (94-97) % Sodium (137-145) mmol/L Carbon Dioxide (22-30) mmol/L Glucose (74-99) mg/dL POC Glucose (mg/dL) 139 H 130 H 151 H (75-99) mg/dL 10/12/17 10/12/17 10/12/17 Range/Units 00:14 01:04 02:16 RBC (3.80-5.40) m/uL Hgb (11.4-16.0) gm/dL Hct (34.0-46.0) % MCHC (31.0-37.0) g/dL Lymphocytes # (1.0-4.8) k/uL ABG pCO2 (35-45) mmHg ABG pO2 (83-108) mmHg ABG HCO3 (21-25) mmol/L ABG Total CO2 (19-24) mmol/L ABG O2 Saturation (94-97) % Sodium (137-145) mmol/L Carbon Dioxide (22-30) mmol/L Glucose (74-99) mg/dL POC Glucose (mg/dL) 148 H 144 H 138 H (75-99) mg/dL 10/12/17 10/12/17 10/12/17 Range/Units 03:14 04:00 05:02 RBC (3.80-5.40) m/uL Hgb (11.4-16.0) gm/dL Hct (34.0-46.0) % MCHC (31.0-37.0) g/dL Lymphocytes # (1.0-4.8) k/uL ABG pCO2 (35-45) mmHg ABG pO2 (83-108) mmHg ABG HCO3 (21-25) mmol/L ABG Total CO2 (19-24) mmol/L ABG O2 Saturation (94-97) % Sodium (137-145) mmol/L Carbon Dioxide (22-30) mmol/L Glucose (74-99) mg/dL POC Glucose (mg/dL) 132 H 119 H 138 H (75-99) mg/dL 10/12/17 10/12/17 10/12/17 Range/Units 05:05 05:05 05:09 RBC 3.53 L (3.80-5.40) m/uL Hgb 9.5 L (11.4-16.0) gm/dL Hct 32.1 L (34.0-46.0) % MCHC 29.6 L (31.0-37.0) g/dL Lymphocytes # 0.7 L (1.0-4.8) k/uL ABG pCO2 55 H (35-45) mmHg ABG pO2 67 L (83-108) mmHg ABG HCO3 35 H (21-25) mmol/L ABG Total CO2 37 H (19-24) mmol/L ABG O2 Saturation 93.8 L (94-97) % Sodium (137-145) mmol/L Carbon Dioxide 37 H (22-30) mmol/L Glucose 143 H (74-99) mg/dL POC Glucose (mg/dL) (75-99) mg/dL 10/12/17 10/12/17 10/12/17 Range/Units 06:03 07:02 08:15 RBC (3.80-5.40) m/uL Hgb (11.4-16.0) gm/dL Hct (34.0-46.0) % MCHC (31.0-37.0) g/dL Lymphocytes # (1.0-4.8) k/uL ABG pCO2 (35-45) mmHg ABG pO2 (83-108) mmHg ABG HCO3 (21-25) mmol/L ABG Total CO2 (19-24) mmol/L ABG O2 Saturation (94-97) % Sodium (137-145) mmol/L Carbon Dioxide (22-30) mmol/L Glucose (74-99) mg/dL POC Glucose (mg/dL) 148 H 151 H 144 H (75-99) mg/dL Microbiology - Last 24 Hours (Table) 10/09/17 02:35 Blood Culture - Preliminary Blood No Growth after 72 hours 10/09/17 02:15 Blood Culture - Preliminary Blood No Growth after 72 hours 10/09/17 00:18 Gram Stain - Final Sputum Sputum Culture - Final Diabetes panel 10/11/17 10/11/17 10/12/17 Range/Units 12:00 17:00 05:05 Sodium 148 H 144 (137-145) mmol/L Potassium 4.4 4.0 (3.5-5.1) mmol/L Chloride 104 (98-107) mmol/L Carbon Dioxide 37 H (22-30) mmol/L BUN 17 (7-17) mg/dL Creatinine 0.70 (0.52-1.04) mg/dL Glucose 143 H (74-99) mg/dL Calcium 8.7 (8.4-10.2) mg/dL Calcium panel 10/12/17 Range/Units 05:05 Calcium 8.7 (8.4-10.2) mg/dL Phosphorus 3.2 (2.5-4.5) mg/dL Pituitary panel 10/11/17 10/11/17 10/12/17 Range/Units 12:00 17:00 05:05 Sodium 148 H 144 (137-145) mmol/L Potassium 4.4 4.0 (3.5-5.1) mmol/L Chloride 104 (98-107) mmol/L Carbon Dioxide 37 H (22-30) mmol/L BUN 17 (7-17) mg/dL Creatinine 0.70 (0.52-1.04) mg/dL Glucose 143 H (74-99) mg/dL Calcium 8.7 (8.4-10.2) mg/dL Adrenal panel 10/11/17 10/11/17 10/12/17 Range/Units 12:00 17:00 05:05 Sodium 148 H 144 (137-145) mmol/L Potassium 4.4 4.0 (3.5-5.1) mmol/L Chloride 104 (98-107) mmol/L Carbon Dioxide 37 H (22-30) mmol/L BUN 17 (7-17) mg/dL Creatinine 0.70 (0.52-1.04) mg/dL Glucose 143 H (74-99) mg/dL Calcium 8.7 (8.4-10.2) mg/dL
--- NOTE | 2017-10-11 12:35 | PN ---
PROGRESS NOTE This lady is in with respiratory failure. She is slightly tachycardic. I am recommending that we give her metoprolol tartrate 12.5 mg t.i.d. She is still on a vent, intubated, hemodynamically stable, making decent urine. Physical exam reveals S1, S2 heard normally with distant heart sounds. Lungs reveal bilateral air entry induced by the respirator. Abdomen is soft. Lower extremities reveal diminished pulses. Edema is noted. I am recommending that we add a small dose of beta juan ramon. She is in sinus tachycardia. She has history of diastolic failure, but systolic function is well preserved. At this time, there are no active cardiac issues. We will start Lopressor at 12.5 mg t.i.d. and based on clinical course, I will make further recommendations. I will see her as needed. JOHNIE / NABILN: [id number] /
[2017-10-11 13:09] LABS: Glucose,Whole Blood 221 mg/dL (75-99)
[2017-10-11 14:19] LABS: Glucose,Whole Blood 199 mg/dL (75-99)
[2017-10-11 15:12] LABS: Glucose,Whole Blood 183 mg/dL (75-99)
[2017-10-11 16:06] LABS: Glucose,Whole Blood 172 mg/dL (75-99)
[2017-10-11] MEDS: INSULIN REGULAR 100 UNIT in SODIUM CHLORIDE 0.9% 100 ML IV SCH (16:12)
[2017-10-11 17:06] LABS: Glucose,Whole Blood 178 mg/dL (75-99)
[2017-10-11 18:01] LABS: Glucose,Whole Blood 161 mg/dL (75-99)
[2017-10-11 18:53] LABS: Glucose,Whole Blood 142 mg/dL (75-99)
[2017-10-11 20:08] LABS: Glucose,Whole Blood 140 mg/dL (75-99)
--- NOTE | 2017-10-11 20:23 | PN ---
PROGRESS NOTE DATE OF SERVICE: 10/10/2017 This 52-year-old woman who was admitted with renal failure also had shortness of breath and acute respiratory failure. Patient also has COPD and CHF. The patient is being closely monitored at this time. PEG tube and tracheostomy are recommended by Dr. Laurent. The patient is on mechanical ventilation. Vent settings are noted. Past medical history reviewed. Review of systems could not be taken becasue pt is intubated. CURRENT MEDICATIONS: Current medications are reviewed and include: 1. Tylenol 650 q.6 p.r.n. 2. DuoNeb q.i.d. and p.r.n. 3. Zyloprim 200 mg p.o. daily. 4. Aspirin 81 mg daily. 5. Pulmicort 0.5 b.i.d. 6. Rocephin 1 gram IV daily. 7. Peridex. 8. Flexeril 10 mg b.i.d. 9. Lexapro 10 mg at bedtime. 10.Iron sulfate 325 mg p.o. daily. 11.Neurontin 300 mg b.i.d. 12.Heparin 5000 units subcutaneously q.8. 13.Solu-Cortef 50 mg IV daily. 14.Dilaudid 2 mg q.2 p.r.n. 15.Claritin D p.o. b.i.d. 16.Lopressor 12.5 mg. 17.Singulair 10 mg at bedtime. 18.Narcan 0.2 q.2 p.r.n. 19.Nitrostat 0.4 sublingually p.r.n. 20.Levophed drip. 21.Protonix 40 mg IV daily. 22.Lyrica 150 mg b.i.d. 23.Propofol. 24.Ultram. PHYSICAL EXAMINATION: Patient is alert, oriented x3. Pulse 97, blood pressure 137/65, respiration 18, temperature 98.2, pulse ox 94% on mechanical ventilation. Vent settings are 40% FiO2. HEENT: Conjunctivae normal. Oral mucosa moist. NECK: No jugular venous distention. No carotid bruit. No lymph node enlargement. CARDIOVASCULAR SYSTEM: S1, S2 muffled. No S3. No S4. RESPIRATORY SYSTEM: Breath sounds diminished at the bases. Bilateral scattered rhonchi, expiratory wheezing and crackles. ABDOMEN: Soft, non-tender. No mass palpable. LEGS: No edema. No swelling. NERVOUS SYSTEM: Higher functions as mentioned earlier. Moves all 4 limbs. No focal motor or sensory deficit. LYMPHATICS: No lymph node palpable in neck, axillae or groin. SKIN: No ulcer, rash, bleeding. LABS: Accu-Cheks 199, 183, 172. Hemoglobin is 9.1. Other labs are noted. Sodium 151. ASSESSMENT: 1. Acute renal failure, possible prerenal renal failure with acute tubular necrosis, multifactorial, present on admission. 2. Shortness of breath with COPD, acute exacerbation, with acute hypoxic hypercarbic respiratory failure as well as congestive heart failure, acute exacerbation , with acute diastolic congestive heart failure. 3. Acute respiratory acidosis, on mechanical ventilation. 4. Hyponatremia. 5. Morbid obesity with a body mass index of 56.6 and obesity hypoventilation syndrome. 6. Asthma, chronic obstructive pulmonary disease. 7. History of congestive heart failure. 8. Diabetes mellitus, type 2. 9. Hypertension. 10.Hyperlipidemia. 11.History of degenerative joint disease. 12.History of pneumonia. 13.History of sleep apnea. 14.History of gout. 15.History of peripheral neuropathy. 16.Chronic hypoxic respiratory failure. 17.Claustrophobia. 18.Remote history of nicotine dependence. 19.Hypernatremia. 20.FULL CODE. RECOMMENDATIONS AND DISCUSSION: I recommend to continue current medication, continue with monitoring, symptomatic treatment. We will monitor the patient closely. Otherwise I would recommend monitoring fluid/electrolyte balance closely. Tracheostomy and PEG tube per Dr. Laurent. Guarded prognosis. Further recommendations to follow. MMODL / IJN: [id number] / [email or web address]
[2017-10-11] MEDS: ESCITALOPRAM 10 MG TAB PO SCH (20:55)
[2017-10-11] MEDS: MONTELUKAST 10 MG TAB PO SCH (20:55)
[2017-10-11 21:25] LABS: Glucose,Whole Blood 139 mg/dL (75-99)
[2017-10-11] MEDS: cefTRIAXone IN SWFI 1,000 MG/10 ML SYRINGE IVP SCH (21:25)
[2017-10-11 22:18] LABS: Glucose,Whole Blood 130 mg/dL (75-99)
[2017-10-11 23:03] LABS: Glucose,Whole Blood 151 mg/dL (75-99)
[2017-10-12 00:16] LABS: Glucose,Whole Blood 148 mg/dL (75-99)
[2017-10-12] MEDS: PROPOFOL 1,000 MG in EMPTY BAG 1 BAG IV SCH ×13 (00:16→23:10)
[2017-10-12] MEDS: HEPARIN SODIUM,PORCINE 5,000 UNIT/ML 1 ML VIAL SQ SCH ×4 (00:51→23:26)
[2017-10-12 01:06] LABS: Glucose,Whole Blood 144 mg/dL (75-99)
[2017-10-12 02:17] LABS: Glucose,Whole Blood 138 mg/dL (75-99)
[2017-10-12 03:16] LABS: Glucose,Whole Blood 132 mg/dL (75-99)
[2017-10-12 04:02] LABS: Glucose,Whole Blood 119 mg/dL (75-99)
[2017-10-12 05:04] LABS: Glucose,Whole Blood 138 mg/dL (75-99)
[2017-10-12 05:11] LABS: ABG Base Excess 10.7 mmol/L; ABG HCO3 35 mmol/L (21-25); ABG Oxygen Saturation 93.8 % (94-97); ABG PCO2 55 mmHg (35-45); ABG PH 7.42 (7.35-7.45); ABG PO2 67 mmHg (83-108); ABG TCO2 37 mmol/L (19-24)
[2017-10-12 05:21] LABS: Basophils % (A) 0 %; Eosinophils # (A) 0.2 k/uL (0-0.7); Eosinophils % (A) 3 %; HCT 32.1 % (34.0-46.0); HGB 9.5 gm/dL (11.4-16.0); Hypochromasia Marked; Lymphocytes # (A) 0.7 k/uL (1.0-4.8); Lymphocytes % (A) 14 %; MCH 26.9 pg (25.0-35.0); MCHC 29.6 g/dL (31.0-37.0); Mean Platelet Volume 7.7; Monocytes # (A) 0.3 k/uL (0-1.0); Monocytes % (A) 6 %; Neutrophils # (A) 3.7 k/uL (1.3-7.7); Neutrophils % (A) 76 %; Platelet Count 178 k/uL (150-450); RBC 3.53 m/uL (3.80-5.40); RDW 15.4 % (11.5-15.5); WBC 4.9 k/uL (3.8-10.6)
[2017-10-12 05:23] LABS: Anion Gap 3 mmol/L; Blood Urea Nitrogen 17 mg/dL (7-17); Calcium 8.7 mg/dL (8.4-10.2); Carbon Dioxide 37 mmol/L (22-30); Chloride 104 mmol/L (98-107); Glucose 143 mg/dL (74-99); Phosphorus 3.2 mg/dL (2.5-4.5); Sodium 144 mmol/L (137-145)
[2017-10-12 06:05] LABS: Glucose,Whole Blood 148 mg/dL (75-99)
[2017-10-12 07:03] LABS: Glucose,Whole Blood 151 mg/dL (75-99)
--- NOTE | 2017-10-12 07:25 | XR ---
EXAMINATION TYPE: XR chest 1V portable DATE OF EXAM: 10/12/2017 COMPARISON: 10/11/2017 HISTORY: Shortness of breath TECHNIQUE: Single view of the chest is submitted for FINDINGS: Endotracheal and NG tubes are unchanged in position. Scattered senescent parenchymal changes noted. Hyperinflation compatible with COPD. No mild increased density at the lung bases may reflect atelectasis or underlying infiltrate. Overall no change seen. Heart size is stable. Mediastinal structures are stable and grossly unremarkable. No evidence for hilar prominence. Degenerative changes dorsal spine. IMPRESSION: 1. Stable chest.
[2017-10-12] MEDS: HYDROmorphone 2 MG TAB PO PRN ×2 (07:46→11:00)
[2017-10-12] MEDS ORDERED: Magnesium Replacement Protocol 1 EACH MISC MISCELLANE PRN (07:59)
[2017-10-12] MEDS: DEXTROSE 5% IN WATER 1,000 ML IV SCH ×3 (08:00→18:38)
[2017-10-12 08:17] LABS: Glucose,Whole Blood 144 mg/dL (75-99)
[2017-10-12] MEDS: IPRATROPIUM-ALBUTEROL 3 ML NEB INHALATION SCH ×3 (08:23→19:15)
[2017-10-12] MEDS: BUDESONIDE 0.5 MG/2 ML NEBU INHALATION SCH (08:23)
--- NOTE | 2017-10-12 08:26 | P.PN ---
Subjective Progress Note Date: 10/12/17 Principal diagnosis: Respiratory failure, acute kidney injury, pickwickian syndrome Progress note dated 10/10/2017 This is a 52-year-old obese female was admitted with a diagnosis of respiratory failure and acute kidney injury. She was admitted on October 07 and was intubated on the . She remains on the ventilator. The patient is initially on BiPAP, but developed tere respiratory failure or car intubation. I think this patient is a patient who would best be suited for early tracheostomy given her multiple episodes of acute respiratory failure her severe COPD her pickwickian syndrome and her sleep apnea syndrome. Currently the patient herself cannot give any additional history as she is now on the ventilator. Vent settings include the assist control mode, rate is 18 tidal volume was 500 FiO2 50% to be dropped down to 40%, PEEP of 5. Blood gases show a PaO2 of 96 a PaCO2 of 59 and a pH of 7.37. She is receiving a saline IV at 1 50 mL an hour norepinephrine at 1 [place] per gram per minute propofol at 50 mics per kilogram per minute insulin drip at 3 units an hour and vital AF with a rate of 45 and a goal of 45. Because of that because of hypernatremia, have to add some free water flushes. Her other medical history includes chronic hypoxemic and hypercapnic respiratory failure secondary to pickwickian syndrome , sleep apnea syndrome, and COPD. In addition, the patient has hypovolemic shock, acute kidney injury secondary to ATN, hypernatremia hypotension insulin- dependent diabetes mellitus COPD morbid obesity sleep apnea syndrome diabetic neuropathy hypertension hyperlipidemia DJD and gout and hypothyroidism. Progress note dated 10/11/2017 This is a 52-year-old obese female who was admitted with a diagnosis of respiratory failure and acute kidney injury. She was admitted on the . She was intubated today later on the . She remains on the ventilator. She' s not made much or any progress. The patient was initially on BiPAP but failed BiPAP. The patient will be evaluated by cardiothoracic surgery for early tracheostomy and PEG tube placement given her many episodes of respiratory failure. In addition to morbid obesity and severe COPD, she has history of pickwickian syndrome and sleep apnea syndrome. Most of the time she is BiPAP dependent. We will do a daily interruption of sedation today and evaluate her for a spontaneous breathing trial. Currently, the patient's on the assist control mode rate of 18, tidal volume 500, FiO2 40%, PEEP of 5. Arterial blood gases show a PaO2 of 68 PaCO2 of 58 and pH 7.39. She's currently on an insulin drip at 4 units an hour saline IV at 100 mL an hour propofol at 50 mics because kilogram per minute and tube feeds with vital AF at 55 with a goal of 55 mL an hour. Progress note dated 10/12/2017 52-year-old obese female admitted with a diagnosis of respiratory failure and acute kidney injury. She was admitted on the . She was intubated later on the . She remains on the ventilator. She has not made any progress despite daily interruption to sedation and spontaneous breathing trials. I did ask thoracic surgery to consider tracheostomy which is apparently planned for tomorrow. The patient was initially on BiPAP failed that. In addition to morbid obesity and severe COPD with multiple episodes of respiratory failure, the patient has a history pickwickian syndrome and sleep apnea syndrome. Most the time when she is here, she is BiPAP dependent. Currently, the patient's ventilator settings are unchanged and include the assist control mode rate of 18 , tidal volume 500, FiO2 40%, PEEP of 5. Blood gases are noted. The patient's on a basic IV and sedation with propofol as well as her tube feeds which is vital AF at 55 with a goal of 55 MLS per hour. Her condition is changed very little since yesterday. Her chest x-ray does show some mild fluid overload and some infiltrates or atelectasis at the lung bases. Today again, we will try a daily eruption of sedation with a spontaneous breathing trial as we do every day. Should she do better today, we will cancel the tracheostomy and PEG tube placement. In addition to the above, she has a history of hypothyroidism, gout , DJD, hyperlipidemia, hypertension, diabetic neuropathy, sleep apnea syndrome, diabetes, and acute tubular necrosis. Objective - Vital Signs Vital signs: Vital Signs Temp 99.7 F H 10/12/17 04:00 Pulse 99 10/12/17 06:00 Resp 18 10/12/17 06:00 BP 64/48 10/08/17 15:15 Pulse Ox 93 L 10/12/17 06:00 Intake & Output 10/11/17 10/12/17 10/12/17 18:59 06:59 18:59 Intake Total 3759.324 1734.386 100 Output Total 1595 1090 Balance 2164.324 644.386 100 Weight 242.6 kg 244 kg Intake: IV 889 477 Dextrose 5% in Water 1, 550 450 000 ml @ 50 mls/hr IV . Q20H SARAH Rx#:[id number] Sodium Chloride 0.9% 1, 300 000 ml @ 100 mls/hr IV . Q10H SARAH Rx#:[id number] pressure bag 39 27 Intake, IV Titration 577.324 585.386 100 Amount Insulin Regular 100 unit 79.251 42.267 In Sodium Chloride 0.9% 100 ml @ Per Protocol IV .Q0M SARAH Rx#:[id number] Propofol 1,000 mg In 498.073 543.119 100 Empty Bag 1 bag @ Titrate IV .Q0M SARAH Rx#: [id number] Oral 200 Tube Feeding 1093 472 Other 1200 Output: Urine 1595 1090 Other: Voiding Method Indwelling Catheter Indwelling Catheter ABP, PAP, CO, CI - Last Documented Arterial Blood Pressure 145/66 - Exam No acute distress, oral endotracheal tube and NG tube noted. The patient is sedated. HEENT examination is grossly unremarkable. Mucous membranes are moist. No oral lesions. Neck supple. Full range of motion. No adenopathy thyromegaly or neck vein distention. Cardiovascular examination reveals regular rhythm rate. S1-S2 normal. No S3 or S4. No discernible murmur noted. Heart sounds are distant. Lungs reveal coarse bilateral breath sounds. Breath sounds are diminished. No wheezes or rhonchi. Abdomen obese, and bowel sounds are noted. No masses or tenderness appreciated.. Extremities are intact. Slight edema noted. Skin is without rash or lesion. Neurologic examination could not be adequately assessed as patient is sedated. - Labs CBC & Chem 7: 10/12/17 05:05 10/12/17 05:05 Labs: Abnormal Lab Results - Last 24 Hours (Table) 10/11/17 10/11/17 10/11/17 Range/Units 09:03 09:07 10:04 RBC (3.80-5.40) m/uL Hgb (11.4-16.0) gm/dL Hct (34.0-46.0) % MCHC (31.0-37.0) g/dL Lymphocytes # (1.0-4.8) k/uL ABG pCO2 62 H (35-45) mmHg ABG pO2 60 L (83-108) mmHg ABG HCO3 35 H (21-25) mmol/L ABG Total CO2 37 H (19-24) mmol/L ABG O2 Saturation 89.6 L (94-97) % Sodium (137-145) mmol/L Carbon Dioxide (22-30) mmol/L Glucose (74-99) mg/dL POC Glucose (mg/dL) 145 H 149 H (75-99) mg/dL 10/11/17 10/11/17 10/11/17 Range/Units 11:01 12:09 13:07 RBC (3.80-5.40) m/uL Hgb (11.4-16.0) gm/dL Hct (34.0-46.0) % MCHC (31.0-37.0) g/dL Lymphocytes # (1.0-4.8) k/uL ABG pCO2 (35-45) mmHg ABG pO2 (83-108) mmHg ABG HCO3 (21-25) mmol/L ABG Total CO2 (19-24) mmol/L ABG O2 Saturation (94-97) % Sodium (137-145) mmol/L Carbon Dioxide (22-30) mmol/L Glucose (74-99) mg/dL POC Glucose (mg/dL) 172 H 207 H 221 H (75-99) mg/dL 10/11/17 10/11/17 10/11/17 Range/Units 14:17 15:11 16:04 RBC (3.80-5.40) m/uL Hgb (11.4-16.0) gm/dL Hct (34.0-46.0) % MCHC (31.0-37.0) g/dL Lymphocytes # (1.0-4.8) k/uL ABG pCO2 (35-45) mmHg ABG pO2 (83-108) mmHg ABG HCO3 (21-25) mmol/L ABG Total CO2 (19-24) mmol/L ABG O2 Saturation (94-97) % Sodium (137-145) mmol/L Carbon Dioxide (22-30) mmol/L Glucose (74-99) mg/dL POC Glucose (mg/dL) 199 H 183 H 172 H (75-99) mg/dL 10/11/17 10/11/17 10/11/17 Range/Units 17:00 17:03 18:00 RBC (3.80-5.40) m/uL Hgb (11.4-16.0) gm/dL Hct (34.0-46.0) % MCHC (31.0-37.0) g/dL Lymphocytes # (1.0-4.8) k/uL ABG pCO2 (35-45) mmHg ABG pO2 (83-108) mmHg ABG HCO3 (21-25) mmol/L ABG Total CO2 (19-24) mmol/L ABG O2 Saturation (94-97) % Sodium 148 H (137-145) mmol/L Carbon Dioxide (22-30) mmol/L Glucose (74-99) mg/dL POC Glucose (mg/dL) 178 H 161 H (75-99) mg/dL 10/11/17 10/11/17 10/11/17 Range/Units 18:51 20:07 21:23 RBC (3.80-5.40) m/uL Hgb (11.4-16.0) gm/dL Hct (34.0-46.0) % MCHC (31.0-37.0) g/dL Lymphocytes # (1.0-4.8) k/uL ABG pCO2 (35-45) mmHg ABG pO2 (83-108) mmHg ABG HCO3 (21-25) mmol/L ABG Total CO2 (19-24) mmol/L ABG O2 Saturation (94-97) % Sodium (137-145) mmol/L Carbon Dioxide (22-30) mmol/L Glucose (74-99) mg/dL POC Glucose (mg/dL) 142 H 140 H 139 H (75-99) mg/dL 10/11/17 10/11/17 10/12/17 Range/Units 22:16 23:02 00:14 RBC (3.80-5.40) m/uL Hgb (11.4-16.0) gm/dL Hct (34.0-46.0) % MCHC (31.0-37.0) g/dL Lymphocytes # (1.0-4.8) k/uL ABG pCO2 (35-45) mmHg ABG pO2 (83-108) mmHg ABG HCO3 (21-25) mmol/L ABG Total CO2 (19-24) mmol/L ABG O2 Saturation (94-97) % Sodium (137-145) mmol/L Carbon Dioxide (22-30) mmol/L Glucose (74-99) mg/dL POC Glucose (mg/dL) 130 H 151 H 148 H (75-99) mg/dL 10/12/17 10/12/17 10/12/17 Range/Units 01:04 02:16 03:14 RBC (3.80-5.40) m/uL Hgb (11.4-16.0) gm/dL Hct (34.0-46.0) % MCHC (31.0-37.0) g/dL Lymphocytes # (1.0-4.8) k/uL ABG pCO2 (35-45) mmHg ABG pO2 (83-108) mmHg ABG HCO3 (21-25) mmol/L ABG Total CO2 (19-24) mmol/L ABG O2 Saturation (94-97) % Sodium (137-145) mmol/L Carbon Dioxide (22-30) mmol/L Glucose (74-99) mg/dL POC Glucose (mg/dL) 144 H 138 H 132 H (75-99) mg/dL 10/12/17 10/12/17 10/12/17 Range/Units 04:00 05:02 05:05 RBC 3.53 L (3.80-5.40) m/uL Hgb 9.5 L (11.4-16.0) gm/dL Hct 32.1 L (34.0-46.0) % MCHC 29.6 L (31.0-37.0) g/dL Lymphocytes # 0.7 L (1.0-4.8) k/uL ABG pCO2 (35-45) mmHg ABG pO2 (83-108) mmHg ABG HCO3 (21-25) mmol/L ABG Total CO2 (19-24) mmol/L ABG O2 Saturation (94-97) % Sodium (137-145) mmol/L Carbon Dioxide (22-30) mmol/L Glucose (74-99) mg/dL POC Glucose (mg/dL) 119 H 138 H (75-99) mg/dL 10/12/17 10/12/17 10/12/17 Range/Units 05:05 05:09 06:03 RBC (3.80-5.40) m/uL Hgb (11.4-16.0) gm/dL Hct (34.0-46.0) % MCHC (31.0-37.0) g/dL Lymphocytes # (1.0-4.8) k/uL ABG pCO2 55 H (35-45) mmHg ABG pO2 67 L (83-108) mmHg ABG HCO3 35 H (21-25) mmol/L ABG Total CO2 37 H (19-24) mmol/L ABG O2 Saturation 93.8 L (94-97) % Sodium (137-145) mmol/L Carbon Dioxide 37 H (22-30) mmol/L Glucose 143 H (74-99) mg/dL POC Glucose (mg/dL) 148 H (75-99) mg/dL 10/12/17 10/12/17 Range/Units 07:02 08:15 RBC (3.80-5.40) m/uL Hgb (11.4-16.0) gm/dL Hct (34.0-46.0) % MCHC (31.0-37.0) g/dL Lymphocytes # (1.0-4.8) k/uL ABG pCO2 (35-45) mmHg ABG pO2 (83-108) mmHg ABG HCO3 (21-25) mmol/L ABG Total CO2 (19-24) mmol/L ABG O2 Saturation (94-97) % Sodium (137-145) mmol/L Carbon Dioxide (22-30) mmol/L Glucose (74-99) mg/dL POC Glucose (mg/dL) 151 H 144 H (75-99) mg/dL Microbiology - Last 24 Hours (Table) 10/09/17 02:35 Blood Culture - Preliminary Blood No Growth after 72 hours 10/09/17 02:15 Blood Culture - Preliminary Blood No Growth after 72 hours 10/09/17 00:18 Gram Stain - Final Sputum Sputum Culture - Final Assessment and Plan Assessment: Assessment Acute on chronic hypoxemic and hypercapnic respiratory failure secondary to COPD morbid obesity sleep apnea syndrome and pickwickian syndrome Hypovolemic shock Failure to wean from mechanical ventilation despite daily interruption of sedation and spontaneous breathing trials. Acute kidney injury, secondary to acute tubular necrosis Hypernatremia Hypotension Diabetes mellitus COPD Sleep apnea syndrome Pickwickian syndrome, secondary to morbid obesity. Diabetic neuropathy Hypertension Hyperlipidemia DJD Gout Hypothyroidism Plan: Plan dated 10/10/2017 The patient's overall prognosis is poor. The patient's FiO2 will be dropped from 50-40%. The patient's norepinephrine will be weaned off. The patient will continue with tube feeds. The patient will have free water added to the regimen at 200 mL every 4 hours. We'll talk to the family about CODE STATUS. In addition, the patient should have an early tracheostomy and PEG tube even her multiple episodes of respiratory failure. Additional recommendations and suggestions are forthcoming. Prognosis is poor meds labs and x-rays are all reviewed. Plan dated 10/11/2017 Overall, patient's doing about the same. The patient's of sedation will be held and will do a daily eruption of sedation With the potential for a spontaneous breathing trial. The patient's vent settings were adjusted accordingly yesterday. Her gas exchange is reasonable. She's pretty much at baseline. She is a PaCO2 retainer. Last cardiothoracic surgeons to see her for possible tracheostomy and PEG tube placement. Her family has been notified. They're in agreement with this. Additional recommendations and suggestions are forthcoming. Overall prognosis is poor. Labs x-rays a medications are all reviewed. Critical care time 33 minutes Plan dated 10/12/2017 The patient's overall condition is about the same. We will do a daily interruption of sedation and possibly a spontaneous breathing trial. She is scheduled for tracheostomy and feeding tube placement tomorrow. Labs x-rays and medications are all reviewed. Microbiology is reviewed. Chest x-rays reviewed. Overall prognosis is poor. The norepinephrine has been weaned off. The patient's getting free water for her hypernatremia. CODE STATUS will be addressed. Currently she still is a full code. Again overall prognosis remains poor. Critical care time 32 minutes Time with Patient: Greater than 30
[2017-10-12] MEDS: MAGNESIUM SULFATE-D5W PMX 1 GM in DEXTROSE/WATER 1 100ML.BAG IVPB SCH ×2 (08:46→10:02)
[2017-10-12] MEDS: BUDESONIDE 1 MG/2 ML NEBU INHALATION SCH ×2 (08:53→19:15)
[2017-10-12] MEDS ORDERED: HYDROCORTISONE SUCCINATE 100 MG/2 ML VIAL IV SCH (09:00)
[2017-10-12 09:31] LABS: Glucose,Whole Blood 145 mg/dL (75-99)
[2017-10-12] MEDS: CHLORHEXIDINE GLUCONATE 15 ML CUP MUCOUS MEM SCH ×2 (10:02→20:20)
[2017-10-12 10:16] LABS: Glucose,Whole Blood 148 mg/dL (75-99)
--- NOTE | 2017-10-12 10:19 | P.PN ---
Subjective Patient is seen in follow-up for acute kidney injury. Her creatinine was greater than 5 on admission and is down to 0.7 today. She is nonoliguric. She was transferred to the intensive care unit on October 08 due to respiratory distress and is currently intubated and sedated. Levophed has been discontinued. Sodium level is down to 144 this morning. She scheduled for tracheostomy and PEG tube placement today. Vital signs are stable. General: The patient appeared well nourished and normally developed. Currently intubated. HEENT: Head exam is unremarkable. Neck is without jugular venous distension. LUNGS: Lungs are clear to auscultation and percussion. Breath sounds decreased. HEART: Rate and Rhythm are regular. First and second heart sounds normal. No murmurs, rubs or gallops. ABDOMEN: Abdominal exam reveals normal bowel sounds. Non-tender and non- distended. No evidence of peritonitis. EXTREMITITES: No clubbing, cyanosis, or edema. Objective - Vital Signs Vital signs: Vital Signs Temp 99.7 F H 10/12/17 04:00 Pulse 100 10/12/17 08:45 Resp 18 10/12/17 06:00 BP 64/48 10/08/17 15:15 Pulse Ox 93 L 10/12/17 06:00 Intake & Output 10/11/17 10/12/17 10/12/17 18:59 06:59 18:59 Intake Total 3759.324 1734.386 143.9 Output Total 1595 1090 Balance 2164.324 644.386 143.9 Weight 242.6 kg 244 kg Intake: IV 889 477 Dextrose 5% in Water 1, 550 450 000 ml @ 50 mls/hr IV . Q20H SARAH Rx#:[id number] Sodium Chloride 0.9% 1, 300 000 ml @ 100 mls/hr IV . Q10H SARAH Rx#:[id number] pressure bag 39 27 Intake, IV Titration 577.324 585.386 143.9 Amount Insulin Regular 100 unit 79.251 42.267 In Sodium Chloride 0.9% 100 ml @ Per Protocol IV .Q0M SARAH Rx#:[id number] Propofol 1,000 mg In 498.073 543.119 143.9 Empty Bag 1 bag @ Titrate IV .Q0M SARAH Rx#: [id number] Oral 200 Tube Feeding 1093 472 Other 1200 Output: Urine 1595 1090 Other: Voiding Method Indwelling Catheter Indwelling Catheter ABP, PAP, CO, CI - Last Documented Arterial Blood Pressure 145/66 - Labs CBC & Chem 7: 10/12/17 05:05 10/12/17 05:05 Labs: Abnormal Lab Results - Last 24 Hours (Table) 10/11/17 10/11/17 10/11/17 Range/Units 11:01 12:09 13:07 RBC (3.80-5.40) m/uL Hgb (11.4-16.0) gm/dL Hct (34.0-46.0) % MCHC (31.0-37.0) g/dL Lymphocytes # (1.0-4.8) k/uL ABG pCO2 (35-45) mmHg ABG pO2 (83-108) mmHg ABG HCO3 (21-25) mmol/L ABG Total CO2 (19-24) mmol/L ABG O2 Saturation (94-97) % Sodium (137-145) mmol/L Carbon Dioxide (22-30) mmol/L Glucose (74-99) mg/dL POC Glucose (mg/dL) 172 H 207 H 221 H (75-99) mg/dL 10/11/17 10/11/17 10/11/17 Range/Units 14:17 15:11 16:04 RBC (3.80-5.40) m/uL Hgb (11.4-16.0) gm/dL Hct (34.0-46.0) % MCHC (31.0-37.0) g/dL Lymphocytes # (1.0-4.8) k/uL ABG pCO2 (35-45) mmHg ABG pO2 (83-108) mmHg ABG HCO3 (21-25) mmol/L ABG Total CO2 (19-24) mmol/L ABG O2 Saturation (94-97) % Sodium (137-145) mmol/L Carbon Dioxide (22-30) mmol/L Glucose (74-99) mg/dL POC Glucose (mg/dL) 199 H 183 H 172 H (75-99) mg/dL 10/11/17 10/11/17 10/11/17 Range/Units 17:00 17:03 18:00 RBC (3.80-5.40) m/uL Hgb (11.4-16.0) gm/dL Hct (34.0-46.0) % MCHC (31.0-37.0) g/dL Lymphocytes # (1.0-4.8) k/uL ABG pCO2 (35-45) mmHg ABG pO2 (83-108) mmHg ABG HCO3 (21-25) mmol/L ABG Total CO2 (19-24) mmol/L ABG O2 Saturation (94-97) % Sodium 148 H (137-145) mmol/L Carbon Dioxide (22-30) mmol/L Glucose (74-99) mg/dL POC Glucose (mg/dL) 178 H 161 H (75-99) mg/dL 10/11/17 10/11/17 10/11/17 Range/Units 18:51 20:07 21:23 RBC (3.80-5.40) m/uL Hgb (11.4-16.0) gm/dL Hct (34.0-46.0) % MCHC (31.0-37.0) g/dL Lymphocytes # (1.0-4.8) k/uL ABG pCO2 (35-45) mmHg ABG pO2 (83-108) mmHg ABG HCO3 (21-25) mmol/L ABG Total CO2 (19-24) mmol/L ABG O2 Saturation (94-97) % Sodium (137-145) mmol/L Carbon Dioxide (22-30) mmol/L Glucose (74-99) mg/dL POC Glucose (mg/dL) 142 H 140 H 139 H (75-99) mg/dL 10/11/17 10/11/17 10/12/17 Range/Units 22:16 23:02 00:14 RBC (3.80-5.40) m/uL Hgb (11.4-16.0) gm/dL Hct (34.0-46.0) % MCHC (31.0-37.0) g/dL Lymphocytes # (1.0-4.8) k/uL ABG pCO2 (35-45) mmHg ABG pO2 (83-108) mmHg ABG HCO3 (21-25) mmol/L ABG Total CO2 (19-24) mmol/L ABG O2 Saturation (94-97) % Sodium (137-145) mmol/L Carbon Dioxide (22-30) mmol/L Glucose (74-99) mg/dL POC Glucose (mg/dL) 130 H 151 H 148 H (75-99) mg/dL 10/12/17 10/12/17 10/12/17 Range/Units 01:04 02:16 03:14 RBC (3.80-5.40) m/uL Hgb (11.4-16.0) gm/dL Hct (34.0-46.0) % MCHC (31.0-37.0) g/dL Lymphocytes # (1.0-4.8) k/uL ABG pCO2 (35-45) mmHg ABG pO2 (83-108) mmHg ABG HCO3 (21-25) mmol/L ABG Total CO2 (19-24) mmol/L ABG O2 Saturation (94-97) % Sodium (137-145) mmol/L Carbon Dioxide (22-30) mmol/L Glucose (74-99) mg/dL POC Glucose (mg/dL) 144 H 138 H 132 H (75-99) mg/dL 10/12/17 10/12/17 10/12/17 Range/Units 04:00 05:02 05:05 RBC 3.53 L (3.80-5.40) m/uL Hgb 9.5 L (11.4-16.0) gm/dL Hct 32.1 L (34.0-46.0) % MCHC 29.6 L (31.0-37.0) g/dL Lymphocytes # 0.7 L (1.0-4.8) k/uL ABG pCO2 (35-45) mmHg ABG pO2 (83-108) mmHg ABG HCO3 (21-25) mmol/L ABG Total CO2 (19-24) mmol/L ABG O2 Saturation (94-97) % Sodium (137-145) mmol/L Carbon Dioxide (22-30) mmol/L Glucose (74-99) mg/dL POC Glucose (mg/dL) 119 H 138 H (75-99) mg/dL 10/12/17 10/12/17 10/12/17 Range/Units 05:05 05:09 06:03 RBC (3.80-5.40) m/uL Hgb (11.4-16.0) gm/dL Hct (34.0-46.0) % MCHC (31.0-37.0) g/dL Lymphocytes # (1.0-4.8) k/uL ABG pCO2 55 H (35-45) mmHg ABG pO2 67 L (83-108) mmHg ABG HCO3 35 H (21-25) mmol/L ABG Total CO2 37 H (19-24) mmol/L ABG O2 Saturation 93.8 L (94-97) % Sodium (137-145) mmol/L Carbon Dioxide 37 H (22-30) mmol/L Glucose 143 H (74-99) mg/dL POC Glucose (mg/dL) 148 H (75-99) mg/dL 10/12/17 10/12/17 10/12/17 Range/Units 07:02 08:15 09:28 RBC (3.80-5.40) m/uL Hgb (11.4-16.0) gm/dL Hct (34.0-46.0) % MCHC (31.0-37.0) g/dL Lymphocytes # (1.0-4.8) k/uL ABG pCO2 (35-45) mmHg ABG pO2 (83-108) mmHg ABG HCO3 (21-25) mmol/L ABG Total CO2 (19-24) mmol/L ABG O2 Saturation (94-97) % Sodium (137-145) mmol/L Carbon Dioxide (22-30) mmol/L Glucose (74-99) mg/dL POC Glucose (mg/dL) 151 H 144 H 145 H (75-99) mg/dL 10/12/17 Range/Units 10:15 RBC (3.80-5.40) m/uL Hgb (11.4-16.0) gm/dL Hct (34.0-46.0) % MCHC (31.0-37.0) g/dL Lymphocytes # (1.0-4.8) k/uL ABG pCO2 (35-45) mmHg ABG pO2 (83-108) mmHg ABG HCO3 (21-25) mmol/L ABG Total CO2 (19-24) mmol/L ABG O2 Saturation (94-97) % Sodium (137-145) mmol/L Carbon Dioxide (22-30) mmol/L Glucose (74-99) mg/dL POC Glucose (mg/dL) 148 H (75-99) mg/dL Microbiology - Last 24 Hours (Table) 10/09/17 02:35 Blood Culture - Preliminary Blood No Growth after 72 hours 10/09/17 02:15 Blood Culture - Preliminary Blood No Growth after 72 hours 10/09/17 00:18 Gram Stain - Final Sputum Sputum Culture - Final Assessment and Plan Plan: Assessment: #1. Acute kidney injury secondary to ischemic ATN secondary to hypotension, nonsteroidals and diuresis. Creatinine was 5.6 at an outside facility prior to transfer here and is down to 0.7 today. Urinalysis is quite benign. No evidence of hydronephrosis noted on renal ultrasound. Baseline creatinine is near 1. #2. Hypovolemic hyponatremia. Resolved. She is now hypernatremic due to polyuria and lack of oral water intake. Improving. #3. Hypovolemic shock from overdiuresis. Levofed discontinued. #4. Insulin-dependent diabetes mellitus. #5. Hypotension due to diuresis. Cortisol level was noted to be low at 5. Maintained on hydrocortisone. #6. Hyperphosphatemia secondary to acute kidney injury. Improved with diuresis. #7. Polyuria due to recovering renal function. #8. Hypomagnesemia due to poor nutritional status and polyuria. Plan: Tube feeds are currently held. I will increase D5W to 125 mL an hour. Avoid nephrotoxic agents and hypotensive episodes. Continue to monitor renal function and urine output closely. Repeat electrolytes in the morning. Discontinue hydrocortisone. Scheduled for tracheostomy and PEG tube placement today.
[2017-10-12 11:08] LABS: Glucose,Whole Blood 158 mg/dL (75-99)
[2017-10-12] MEDS: MORPHINE SULFATE 4 MG/ML SYRINGE IVP PRN ×3 (12:01→18:46)
[2017-10-12] MEDS: PANTOPRAZOLE 40 MG/10 ML VIAL IV SCH (12:20)
[2017-10-12 13:10] LABS: Glucose,Whole Blood 186 mg/dL (75-99)
[2017-10-12] MEDS ORDERED: MIDAZOLAM 2 MG/2 ML VIAL ONE (13:26)
[2017-10-12] MEDS ORDERED: fentaNYL (PF) 50 MCG/ML 2 ML AMP ONE (13:26)
[2017-10-12] MEDS ORDERED: PHENYLEPHRINE-0.9% NACL SYG 1 MG/10 ML SYRINGE ONE (13:26)
[2017-10-12] MEDS ORDERED: ROCURONIUM BROMIDE 10 MG/ML 10 ML VIAL IV ONE (13:26)
[2017-10-12] MEDS ORDERED: SODIUM CHLORIDE 0.9% 1,000 ML IV ONE (13:26)
[2017-10-12] MEDS ORDERED: LIDOCAINE 1% INJ 10MG/ML (20 ML MDV) SQ ONE (13:46)
[2017-10-12] MEDS: INSULIN REGULAR 100 UNIT in SODIUM CHLORIDE 0.9% 100 ML IV SCH (15:32)
[2017-10-12 15:33] LABS: Glucose,Whole Blood 168 mg/dL (75-99)
--- NOTE | 2017-10-12 15:38 | P.PCN ---
Date of Procedure: 10/12/17 Preoperative Diagnosis: Respiratory failure and inability to wean from vent Postoperative Diagnosis: Same Procedure(s) Performed: Tracheostomy Anesthesia: JIM Surgeon: Romain Armendariz Estimated Blood Loss (ml): 30 Pathology: none sent Condition: stable Disposition: no change Indications for Procedure: The patient has been unable to wean from the vent. Operative Findings: No significant abnormalities were seen. Description of Procedure: With the patient spine position, under benefit of IV sedation, the patient having already been intubated for her ventilation, we prepped and draped in standard fashion. We made a 1/2 cm transverse incision 2 fingerbreadths above the sternal notch. We incised suprafascial fascias transversely. We split strap muscles in midline. We divided the isthmus of the thyroid with electrocautery. We placed the first tracheal ring on traction. Prior to performing the tracheostomy opening we made sure that all the areas of the soft tissue dissection were completely hemostatic. We then incised the second through the fourth tracheal rings longitudinally. We dilated the opening and placed a #8 Shiley proximal XLT tube. With the balloon inflated she ventilated nicely with this. Hemostasis was excellent. We closed the corners of the incision with 3-0 nylon. These sutures were used to secure the wings of the flange. Sterile dressings were applied. The ET tube had been removed entirely. The patient tolerated the procedure well. We then proceeded with PEG tube insertion.
--- NOTE | 2017-10-12 15:42 | P.PCN ---
Date of Procedure: 10/12/17 Preoperative Diagnosis: Inability to swallow secondary to that dependency Postoperative Diagnosis: Same Procedure(s) Performed: Insertion of percutaneous endoscopic gastrostomy tube Anesthesia: RODRIGOA Surgeon: Romain Armendariz IV fluids (ml): 5 Pathology: none sent Condition: stable Disposition: ICU Indications for Procedure: The patient is vent dependent and requires nutrition. Operative Findings: No obvious anatomic abnormalities were found. Description of Procedure: With the patient in supine position, under benefit of IV sedation with ventilation through trach tube, we passed the endoscope under direct visualization. The esophagus was traversed. We entered the stomach and it was insufflated. We then located an area in the anterior abdominal wall just below the left costal margin which corresponded with the anterior wall of the stomach. At this location we made a quarter inch incision on the anterior abdominal wall. A needle and trocar were placed through this into the stomach. The inner trocar was removed and a guidewire placed through the needle. It was drawn out through the mouth. We then retrograde over this placed the PEG tube until the plastic tip exited the anterior abdominal wall. The plastic tip was grasped and utilized to bring the PEG tube along its course. We followed the mushroom tip with the scope until it abutted the gastric mucosa. We removed all possible air from the stomach and removed our scope. Appropriate adapters were placed on the PEG tube. It was seen to be at 6 cm on the markings of the PEG tube. The patient tolerated the procedure well and was taken to ICU in stable condition.
[2017-10-12 16:02] LABS: Glucose,Whole Blood 172 mg/dL (75-99)
[2017-10-12 16:54] LABS: Glucose,Whole Blood 171 mg/dL (75-99)
[2017-10-12] MEDS: METOPROLOL TARTRATE 12.5 MG TAB PO SCH ×3 (17:15→21:26)
[2017-10-12] MEDS: PREGABALIN 75 MG CAP PO SCH ×2 (17:17→21:26)
[2017-10-12] MEDS: ALLOPURINOL 100 MG TAB PO SCH (17:18)
[2017-10-12] MEDS: ASPIRIN 81 MG PO SCH (17:18)
[2017-10-12] MEDS: GABAPENTIN 300 MG CAP PO SCH ×2 (17:18→21:26)
[2017-10-12] MEDS: FERROUS SULFATE 325 MG TAB PO SCH (17:18)
--- NOTE | 2017-10-12 18:15 | PN ---
PROGRESS NOTE DATE OF SERVICE: 10/12/2017 This 52-year-old woman was admitted with renal failure also had acute tubular necrosis. The patient has shortness of breath with COPD as well as acute hypoxic hypercarbic respiratory failure. The patient is planned to have tracheostomy and PEG tube placement at this time. PAST MEDICAL HISTORY: Reviewed. REVIEW OF SYSTEMS: Could not be taken. The patient on mechanical ventilator. CURRENT MEDICATIONS: Reviewed and include: 1. Tylenol 650 q.6h p.r.n. 2. DuoNeb q.i.d. and p.r.n. 3. Zyloprim 200 mg daily. 4. Aspirin 81 mg. 5. Pulmicort 1 mg b.i.d. 6. Rocephin 1 g IV daily. 7. Peridex daily. 8. Lexapro 10 mg. 9. Iron sulfate 325 mg p.o. daily. 10.Neurontin 300 mg p.o. daily. 11.Heparin 5000 subcu q.8h. 12.Dilaudid 2 mg p.o. q.2h p.r.n. 13.Replacement protocols. 14.Levophed drip. 15.Lyrica. PHYSICAL EXAMINATION: The pulse is 100, blood pressure 140/60, respiration 18, temperature 98.2, pulse ox 97% on mechanical ventilation. Vent settings are noted. HEENT: Conjunctivae normal. Oral mucosa moist. NECK: No jugular venous distention. No carotid bruit. No lymph node enlargement. CARDIOVASCULAR: S1, S2 muffled. No S3, no S4. RESPIRATORY: Breath sounds diminished in the bases. A few scattered rhonchi and crackles. ABDOMEN: Soft, obese, nontender. LEGS: No edema, no swelling. NERVOUS SYSTEM: Patient mechanically sedated. SKIN: No ulcer, rash, bleeding. LYMPHATICS: No lymphadenopathy in the neck, axillae, groin. LAB STUDIES: At this time the glucose is 186, 161, 171. Other labs of hemoglobin 9.5. ABGs noted. Otherwise sodium 140, potassium 4. ASSESSMENT: 1. Acute renal failure possibly prerenal renal failure with acute tubular necrosis, multifactorial, present on admission. 2. Shortness of breath with chronic obstructive pulmonary disease acute exacerbation with acute hypoxic hypercarbic respiratory failure as well as congestive heart failure acute exacerbation with acute diastolic congestive heart failure, status post PEG tube and tracheostomy. 3. Acute respiratory acidosis on mechanical ventilation. 4. Hyponatremia. 5. Morbid obesity with body mass index of 56.6 and obesity hypoventilation syndrome. 6. Asthma, chronic obstructive pulmonary disease. 7. History of congestive heart failure. 8. Diabetes mellitus type 2. 9. Hypertension. 10.Hyperlipidemia. 11.History of degenerative joint disease. 12.History pneumonia. 13.History of sleep apnea. 14.History of gout. 15.History of peripheral neuropathy. 16.Chronic hypoxic respiratory failure. 17.Claustrophobia. 18.Remote history of nicotine dependence. 19.Hypernatremia. 20.FULL CODE. RECOMMENDATIONS AND DISCUSSION: In this 52-year-old woman who presented with multiple complex medical issues, will monitor the patient closely. Continue the current management and continue with mechanical ventilation. Continue with fluid and electrolyte balance, tracheostomy, PEG tube. Continue the antibiotics. Continue the rest of medications. Closely follow with Dr. Laurent and further recommendations to follow. Prognosis guarded. MMODL / IJN: [id number] /
[2017-10-12 18:25] LABS: Glucose,Whole Blood 157 mg/dL (75-99)
[2017-10-12 19:10] LABS: Glucose,Whole Blood 160 mg/dL (75-99)
[2017-10-12 20:09] LABS: Glucose,Whole Blood 150 mg/dL (75-99)
[2017-10-12] MEDS: cefTRIAXone IN SWFI 1,000 MG/10 ML SYRINGE IVP SCH (20:20)
[2017-10-12] MEDS: ESCITALOPRAM 10 MG TAB PO SCH ×2 (21:15→21:25)
[2017-10-12 21:26] LABS: Glucose,Whole Blood 153 mg/dL (75-99)
[2017-10-12 22:04] LABS: Glucose,Whole Blood 155 mg/dL (75-99)
[2017-10-13] MEDS: PROPOFOL 1,000 MG in EMPTY BAG 1 BAG IV SCH ×5 (00:33→07:08)
[2017-10-13 00:36] LABS: Glucose,Whole Blood 168 mg/dL (75-99)
[2017-10-13] MEDS: MORPHINE SULFATE 4 MG/ML SYRINGE IVP PRN (02:15)
[2017-10-13 02:30] LABS: Glucose,Whole Blood 160 mg/dL (75-99)
[2017-10-13] MEDS: DEXTROSE 5% IN WATER 1,000 ML IV SCH ×2 (02:39→09:14)
[2017-10-13 04:04] LABS: Glucose,Whole Blood 164 mg/dL (75-99)
[2017-10-13 04:11] LABS: Anisocytosis Slight; Basophils % (A) 0 %; Eosinophils # (A) 0.1 k/uL (0-0.7); Eosinophils % (A) 2 %; HCT 30.5 % (34.0-46.0); HGB 9.5 gm/dL (11.4-16.0); Hypochromasia Moderate; Lymphocytes # (A) 0.5 k/uL (1.0-4.8); Lymphocytes % (A) 9 %; MCH 27.3 pg (25.0-35.0); MCHC 31.1 g/dL (31.0-37.0); MCV 87.7 fL (80.0-100.0); Mean Platelet Volume 8.7; Monocytes # (A) 0.3 k/uL (0-1.0); Monocytes % (A) 5 %; Neutrophils # (A) 4.7 k/uL (1.3-7.7); Neutrophils % (A) 81 %; Platelet Count 161 k/uL (150-450); RBC 3.48 m/uL (3.80-5.40); WBC 5.7 k/uL (3.8-10.6)
[2017-10-13 04:23] LABS: Anion Gap 4 mmol/L; Blood Urea Nitrogen 11 mg/dL (7-17); Calcium 8.3 mg/dL (8.4-10.2); Carbon Dioxide 34 mmol/L (22-30); Chloride 101 mmol/L (98-107); Glucose 169 mg/dL (74-99); Phosphorus 3.6 mg/dL (2.5-4.5); Potassium 4.2 mmol/L (3.5-5.1); Sodium 139 mmol/L (137-145)
[2017-10-13 04:40] LABS: ABG HCO3 35 mmol/L (21-25); ABG Oxygen Saturation 91.5 % (94-97); ABG PCO2 54 mmHg (35-45); ABG PH 7.42 (7.35-7.45); ABG PO2 65 mmHg (83-108); ABG TCO2 36 mmol/L (19-24)
[2017-10-13] MEDS: MAGNESIUM SULFATE-D5W PMX 1 GM in DEXTROSE/WATER 1 100ML.BAG IVPB SCH ×2 (05:34→07:06)
[2017-10-13 05:57] LABS: Glucose,Whole Blood 169 mg/dL (75-99)
--- NOTE | 2017-10-13 06:55 | XR ---
EXAMINATION TYPE: XR chest 1V portable DATE OF EXAM: 10/13/2017 CLINICAL HISTORY: Difficulty breathing progress study. TECHNIQUE: Single AP portable upright view of the chest is obtained. COMPARISON: Chest x-ray from one day earlier and older studies. FINDINGS: There is interval removal of endotracheal and orogastric tubes. New tracheostomy tube is f elt satisfactory in position. There is cardiomegaly with persistent bibasilar opacity felt to reflect small bilateral pleural effusions and associated bibasilar atelectasis and/or infiltrate. Underlying emphysematous change is felt present. Osseous structures are intact. IMPRESSION: New tracheostomy tube noted. Other findings stable as there is cardiomegaly and chronic e mphysematous change with small bilateral pleural effusions and associated bibasilar atelectasis and/o r infiltrate all redemonstrated.
[2017-10-13] MEDS: BUDESONIDE 1 MG/2 ML NEBU INHALATION SCH ×2 (07:15→18:51)
[2017-10-13] MEDS: IPRATROPIUM-ALBUTEROL 3 ML NEB INHALATION SCH ×3 (07:15→18:51)
[2017-10-13 08:07] LABS: Glucose,Whole Blood 169 mg/dL (75-99)
[2017-10-13] MEDS: HEPARIN SODIUM,PORCINE 5,000 UNIT/ML 1 ML VIAL SQ SCH ×3 (08:09→23:25)
--- NOTE | 2017-10-13 08:56 | P.PN ---
Subjective Progress Note Date: 10/13/17 Principal diagnosis: Respiratory failure, acute kidney injury, pickwickian syndrome Progress note dated 10/10/2017 This is a 52-year-old obese female was admitted with a diagnosis of respiratory failure and acute kidney injury. She was admitted on October 07 and was intubated on the . She remains on the ventilator. The patient is initially on BiPAP, but developed tere respiratory failure or car intubation. I think this patient is a patient who would best be suited for early tracheostomy given her multiple episodes of acute respiratory failure her severe COPD her pickwickian syndrome and her sleep apnea syndrome. Currently the patient herself cannot give any additional history as she is now on the ventilator. Vent settings include the assist control mode, rate is 18 tidal volume was 500 FiO2 50% to be dropped down to 40%, PEEP of 5. Blood gases show a PaO2 of 96 a PaCO2 of 59 and a pH of 7.37. She is receiving a saline IV at 1 50 mL an hour norepinephrine at 1 [place] per gram per minute propofol at 50 mics per kilogram per minute insulin drip at 3 units an hour and vital AF with a rate of 45 and a goal of 45. Because of that because of hypernatremia, have to add some free water flushes. Her other medical history includes chronic hypoxemic and hypercapnic respiratory failure secondary to pickwickian syndrome , sleep apnea syndrome, and COPD. In addition, the patient has hypovolemic shock, acute kidney injury secondary to ATN, hypernatremia hypotension insulin- dependent diabetes mellitus COPD morbid obesity sleep apnea syndrome diabetic neuropathy hypertension hyperlipidemia DJD and gout and hypothyroidism. Progress note dated 10/11/2017 This is a 52-year-old obese female who was admitted with a diagnosis of respiratory failure and acute kidney injury. She was admitted on the . She was intubated today later on the . She remains on the ventilator. She' s not made much or any progress. The patient was initially on BiPAP but failed BiPAP. The patient will be evaluated by cardiothoracic surgery for early tracheostomy and PEG tube placement given her many episodes of respiratory failure. In addition to morbid obesity and severe COPD, she has history of pickwickian syndrome and sleep apnea syndrome. Most of the time she is BiPAP dependent. We will do a daily interruption of sedation today and evaluate her for a spontaneous breathing trial. Currently, the patient's on the assist control mode rate of 18, tidal volume 500, FiO2 40%, PEEP of 5. Arterial blood gases show a PaO2 of 68 PaCO2 of 58 and pH 7.39. She's currently on an insulin drip at 4 units an hour saline IV at 100 mL an hour propofol at 50 mics because kilogram per minute and tube feeds with vital AF at 55 with a goal of 55 mL an hour. Progress note dated 10/12/2017 52-year-old obese female admitted with a diagnosis of respiratory failure and acute kidney injury. She was admitted on the . She was intubated later on the . She remains on the ventilator. She has not made any progress despite daily interruption to sedation and spontaneous breathing trials. I did ask thoracic surgery to consider tracheostomy which is apparently planned for tomorrow. The patient was initially on BiPAP failed that. In addition to morbid obesity and severe COPD with multiple episodes of respiratory failure, the patient has a history pickwickian syndrome and sleep apnea syndrome. Most the time when she is here, she is BiPAP dependent. Currently, the patient's ventilator settings are unchanged and include the assist control mode rate of 18 , tidal volume 500, FiO2 40%, PEEP of 5. Blood gases are noted. The patient's on a basic IV and sedation with propofol as well as her tube feeds which is vital AF at 55 with a goal of 55 MLS per hour. Her condition is changed very little since yesterday. Her chest x-ray does show some mild fluid overload and some infiltrates or atelectasis at the lung bases. Today again, we will try a daily eruption of sedation with a spontaneous breathing trial as we do every day. Should she do better today, we will cancel the tracheostomy and PEG tube placement. In addition to the above, she has a history of hypothyroidism, gout , DJD, hyperlipidemia, hypertension, diabetic neuropathy, sleep apnea syndrome, diabetes, and acute tubular necrosis. Progress note dated 10/13/2017 52-year-old obese female admitted with a diagnosis of respiratory failure. She was admitted on the . She was intubated later on the . She remains on the ventilator. She was making no progress. The patient has multiple episodes of admissions to the hospital with hypoxemic and hypercapnic respiratory failure. Because of her lack of progress, the patient underwent a tracheostomy and PEG tube placement yesterday by one of the cardiothoracic surgeons. She seemed to do relatively well today and the plan is to old her sedation and put her on PSV and CPAP. I think she will do relatively well. Her sleep apnea is effectively carried out she has a tracheostomy. I don't know if that will be permanent or not. The patient's currently on the mechanical ventilator. Vent settings include a assist control mode, rate 18 tidal volume 500 FiO2 40% and PEEP of 5. The patient's blood gases show a PaO2 of 65 a PaCO2 of 54 and a pH of 7.42. Her IVs included D5W at 125 mL an hour, propofol at 25 mics per kilogram per minute and an insulin drip at 5 units per hour. Her peak airway pressure is 28 and her minute volume is 10.6. When she is awake, we'll place her on PSV 8 CPAP of 5. Chest x-ray was reviewed. Other than removal of endotracheal tube and placement of the tracheostomy tube, the x-ray looks very similar. Objective - Vital Signs Vital signs: Vital Signs Temp 99.7 F H 10/13/17 08:00 Pulse 112 H 10/13/17 08:00 Resp 18 10/13/17 08:00 BP 124/59 10/13/17 08:00 Pulse Ox 90 L 10/13/17 08:00 Intake & Output 10/12/17 10/13/17 10/13/17 18:59 06:59 18:59 Intake Total 2437.463 2492.594 384.033 Output Total 2295 1860 1000 Balance 142.463 632.594 -615.967 Weight 255 kg Intake: IV 433 1451 296 Dextrose 5% in Water 1, 1315 190 000 ml @ 125 mls/hr IV . Q8H SARAH Rx#:[id number] Dextrose 5% in Water 1, 100 000 ml @ 50 mls/hr IV . Q20H SARAH Rx#:[id number] Magnesium Sulfate-D5w Pmx 100 100 1 gm In Dextrose/Water 1 100ml.bag @ 100 mls/hr IVPB Q1H SARAH Rx#: [id number] pressure bag 33 36 6 Intake, IV Titration 1944.463 981.594 88.033 Amount Dextrose 5% in Water 1, 1125 125 000 ml @ 125 mls/hr IV . Q8H SARAH Rx#:[id number] Insulin Regular 100 unit 55.983 25.484 In Sodium Chloride 0.9% 100 ml @ Per Protocol IV .Q0M SARAH Rx#:[id number] Magnesium Sulfate-D5w Pmx 200 1 gm In Dextrose/Water 1 100ml.bag @ 100 mls/hr IVPB Q1H SARAH Rx#: [id number] Propofol 1,000 mg In 563.48 831.110 88.033 Empty Bag 1 bag @ Titrate IV .Q0M SARAH Rx#: [id number] Other 60 60 Output: Urine 2275 1860 1000 Estimated Blood Loss 20 Other: Voiding Method Indwelling Catheter Indwelling Catheter ABP, PAP, CO, CI - Last Documented Arterial Blood Pressure 133/54 - Exam No acute distress, tracheostomy tube in place. The patient is sedated. HEENT examination is grossly unremarkable. Mucous membranes are moist. No oral lesions. Neck supple. Full range of motion. No adenopathy thyromegaly or neck vein distention. Cardiovascular examination reveals regular rhythm rate. S1-S2 normal. No S3 or S4. No discernible murmur noted. Heart sounds are distant. Lungs reveal coarse bilateral breath sounds. Breath sounds are diminished. No wheezes or rhonchi. Abdomen obese, and bowel sounds are noted. No masses or tenderness appreciated. PEG tube noted. Extremities are intact. Slight edema noted. Skin is without rash or lesion. Neurologic examination could not be adequately assessed as patient is sedated. - Labs CBC & Chem 7: 10/13/17 04:00 10/13/17 04:00 Labs: Abnormal Lab Results - Last 24 Hours (Table) 10/12/17 10/12/17 10/12/17 Range/Units 09:28 10:15 11:05 RBC (3.80-5.40) m/uL Hgb (11.4-16.0) gm/dL Hct (34.0-46.0) % RDW (11.5-15.5) % Lymphocytes # (1.0-4.8) k/uL ABG pCO2 (35-45) mmHg ABG pO2 (83-108) mmHg ABG HCO3 (21-25) mmol/L ABG Total CO2 (19-24) mmol/L ABG O2 Saturation (94-97) % Carbon Dioxide (22-30) mmol/L Glucose (74-99) mg/dL POC Glucose (mg/dL) 145 H 148 H 158 H (75-99) mg/dL Calcium (8.4-10.2) mg/dL Magnesium (1.6-2.3) mg/dL 10/12/17 10/12/17 10/12/17 Range/Units 13:05 15:30 16:01 RBC (3.80-5.40) m/uL Hgb (11.4-16.0) gm/dL Hct (34.0-46.0) % RDW (11.5-15.5) % Lymphocytes # (1.0-4.8) k/uL ABG pCO2 (35-45) mmHg ABG pO2 (83-108) mmHg ABG HCO3 (21-25) mmol/L ABG Total CO2 (19-24) mmol/L ABG O2 Saturation (94-97) % Carbon Dioxide (22-30) mmol/L Glucose (74-99) mg/dL POC Glucose (mg/dL) 186 H 168 H 172 H (75-99) mg/dL Calcium (8.4-10.2) mg/dL Magnesium (1.6-2.3) mg/dL 10/12/17 10/12/17 10/12/17 Range/Units 16:53 18:23 19:07 RBC (3.80-5.40) m/uL Hgb (11.4-16.0) gm/dL Hct (34.0-46.0) % RDW (11.5-15.5) % Lymphocytes # (1.0-4.8) k/uL ABG pCO2 (35-45) mmHg ABG pO2 (83-108) mmHg ABG HCO3 (21-25) mmol/L ABG Total CO2 (19-24) mmol/L ABG O2 Saturation (94-97) % Carbon Dioxide (22-30) mmol/L Glucose (74-99) mg/dL POC Glucose (mg/dL) 171 H 157 H 160 H (75-99) mg/dL Calcium (8.4-10.2) mg/dL Magnesium (1.6-2.3) mg/dL 10/12/17 10/12/17 10/12/17 Range/Units 20:07 21:25 22:03 RBC (3.80-5.40) m/uL Hgb (11.4-16.0) gm/dL Hct (34.0-46.0) % RDW (11.5-15.5) % Lymphocytes # (1.0-4.8) k/uL ABG pCO2 (35-45) mmHg ABG pO2 (83-108) mmHg ABG HCO3 (21-25) mmol/L ABG Total CO2 (19-24) mmol/L ABG O2 Saturation (94-97) % Carbon Dioxide (22-30) mmol/L Glucose (74-99) mg/dL POC Glucose (mg/dL) 150 H 153 H 155 H (75-99) mg/dL Calcium (8.4-10.2) mg/dL Magnesium (1.6-2.3) mg/dL 10/13/17 10/13/17 10/13/17 Range/Units 00:34 02:28 04:00 RBC 3.48 L (3.80-5.40) m/uL Hgb 9.5 L (11.4-16.0) gm/dL Hct 30.5 L (34.0-46.0) % RDW 16.0 H (11.5-15.5) % Lymphocytes # 0.5 L (1.0-4.8) k/uL ABG pCO2 (35-45) mmHg ABG pO2 (83-108) mmHg ABG HCO3 (21-25) mmol/L ABG Total CO2 (19-24) mmol/L ABG O2 Saturation (94-97) % Carbon Dioxide (22-30) mmol/L Glucose (74-99) mg/dL POC Glucose (mg/dL) 168 H 160 H (75-99) mg/dL Calcium (8.4-10.2) mg/dL Magnesium (1.6-2.3) mg/dL 10/13/17 10/13/17 10/13/17 Range/Units 04:00 04:00 04:38 RBC (3.80-5.40) m/uL Hgb (11.4-16.0) gm/dL Hct (34.0-46.0) % RDW (11.5-15.5) % Lymphocytes # (1.0-4.8) k/uL ABG pCO2 54 H (35-45) mmHg ABG pO2 65 L (83-108) mmHg ABG HCO3 35 H (21-25) mmol/L ABG Total CO2 36 H (19-24) mmol/L ABG O2 Saturation 91.5 L (94-97) % Carbon Dioxide 34 H (22-30) mmol/L Glucose 169 H (74-99) mg/dL POC Glucose (mg/dL) 164 H (75-99) mg/dL Calcium 8.3 L (8.4-10.2) mg/dL Magnesium 1.5 L (1.6-2.3) mg/dL 10/13/17 10/13/17 Range/Units 05:55 08:05 RBC (3.80-5.40) m/uL Hgb (11.4-16.0) gm/dL Hct (34.0-46.0) % RDW (11.5-15.5) % Lymphocytes # (1.0-4.8) k/uL ABG pCO2 (35-45) mmHg ABG pO2 (83-108) mmHg ABG HCO3 (21-25) mmol/L ABG Total CO2 (19-24) mmol/L ABG O2 Saturation (94-97) % Carbon Dioxide (22-30) mmol/L Glucose (74-99) mg/dL POC Glucose (mg/dL) 169 H 169 H (75-99) mg/dL Calcium (8.4-10.2) mg/dL Magnesium (1.6-2.3) mg/dL Microbiology - Last 24 Hours (Table) 10/09/17 02:35 Blood Culture - Preliminary Blood No Growth after 96 hours 10/09/17 02:15 Blood Culture - Preliminary Blood No Growth after 96 hours Assessment and Plan Assessment: Assessment Acute on chronic hypoxemic and hypercapnic respiratory failure secondary to COPD morbid obesity sleep apnea syndrome and pickwickian syndrome Hypovolemic shock Failure to wean from mechanical ventilation despite daily interruption of sedation and spontaneous breathing trials, status post tracheostomy and PEG tube placement on 10/12/2017 Acute kidney injury, secondary to acute tubular necrosis Hypernatremia Hypotension Diabetes mellitus COPD Sleep apnea syndrome Pickwickian syndrome, secondary to morbid obesity. Diabetic neuropathy Hypertension Hyperlipidemia DJD Gout Hypothyroidism Plan: Plan dated 10/10/2017 The patient's overall prognosis is poor. The patient's FiO2 will be dropped from 50-40%. The patient's norepinephrine will be weaned off. The patient will continue with tube feeds. The patient will have free water added to the regimen at 200 mL every 4 hours. We'll talk to the family about CODE STATUS. In addition, the patient should have an early tracheostomy and PEG tube even her multiple episodes of respiratory failure. Additional recommendations and suggestions are forthcoming. Prognosis is poor meds labs and x-rays are all reviewed. Plan dated 10/11/2017 Overall, patient's doing about the same. The patient's of sedation will be held and will do a daily eruption of sedation With the potential for a spontaneous breathing trial. The patient's vent settings were adjusted accordingly yesterday. Her gas exchange is reasonable. She's pretty much at baseline. She is a PaCO2 retainer. Last cardiothoracic surgeons to see her for possible tracheostomy and PEG tube placement. Her family has been notified. They're in agreement with this. Additional recommendations and suggestions are forthcoming. Overall prognosis is poor. Labs x-rays a medications are all reviewed. Critical care time 33 minutes Plan dated 10/12/2017 The patient's overall condition is about the same. We will do a daily interruption of sedation and possibly a spontaneous breathing trial. She is scheduled for tracheostomy and feeding tube placement tomorrow. Labs x-rays and medications are all reviewed. Microbiology is reviewed. Chest x-rays reviewed. Overall prognosis is poor. The norepinephrine has been weaned off. The patient's getting free water for her hypernatremia. CODE STATUS will be addressed. Currently she still is a full code. Again overall prognosis remains poor. Critical care time 32 minutes Plan dated 10/13/2017 The patient's overall condition remains same. The patient's currently sedated. We'll hold sedation and see if we can get the patient on PSV and CPAP. The patient's chest x-ray looks very similar to yesterday's chest x-ray. The patient's currently just on dextrose at 125 mL an hour propofol at 25 mcg/kg/m and insulin drip at 5 units per hour. Blood gases x-rays medications labs are all reviewed. Additional recommendations and suggestions are forthcoming. Prognosis is guarded. Critical care time 34 minutes Time with Patient: Greater than 30
[2017-10-13] MEDS: ASPIRIN 81 MG PO SCH (09:13)
[2017-10-13] MEDS: FERROUS SULFATE 325 MG TAB PO SCH (09:13)
[2017-10-13] MEDS: PANTOPRAZOLE 40 MG/10 ML VIAL IV SCH (09:13)
[2017-10-13] MEDS: CHLORHEXIDINE GLUCONATE 15 ML CUP MUCOUS MEM SCH ×2 (09:13→20:23)
[2017-10-13] MEDS: GABAPENTIN 300 MG CAP PO SCH ×2 (09:14→21:44)
[2017-10-13] MEDS: PREGABALIN 75 MG CAP PO SCH ×2 (09:24→21:44)
[2017-10-13] MEDS: ALLOPURINOL 100 MG TAB PO SCH (09:46)
[2017-10-13] MEDS: METOPROLOL TARTRATE 12.5 MG TAB PO SCH ×3 (09:46→21:44)
[2017-10-13] MEDS: SODIUM CHLORIDE 0.45% 1,000 ML IV SCH ×2 (09:52→18:05)
--- NOTE | 2017-10-13 10:00 | P.PN ---
Subjective Patient is seen in follow-up for acute kidney injury. Her creatinine was greater than 5 on admission and is down to 0.7 today. She is nonoliguric. She was transferred to the intensive care unit on October 08 due to respiratory distress and is currently intubated and sedated. Levophed has been discontinued. Sodium level is down to 139 this morning. She underwent tracheostomy and PEG tube placement on 10/12/17. Vital signs are stable. General: The patient appeared well nourished and normally developed. Currently intubated. HEENT: Head exam is unremarkable. Neck is without jugular venous distension. LUNGS: Lungs are clear to auscultation and percussion. Breath sounds decreased. HEART: Rate and Rhythm are regular. First and second heart sounds normal. No murmurs, rubs or gallops. ABDOMEN: Abdominal exam reveals normal bowel sounds. Non-tender and non- distended. No evidence of peritonitis. EXTREMITITES: No clubbing, cyanosis, or edema. Objective - Vital Signs Vital signs: Vital Signs Temp 99.7 F H 10/13/17 08:00 Pulse 116 H 10/13/17 09:00 Resp 18 10/13/17 09:00 BP 124/59 10/13/17 09:00 Pulse Ox 89 L 10/13/17 09:00 Intake & Output 10/12/17 10/13/17 10/13/17 18:59 06:59 18:59 Intake Total 2437.463 2492.594 529.100 Output Total 2295 1860 1325 Balance 142.463 632.594 -795.900 Weight 255 kg Intake: IV 433 1451 424 Dextrose 5% in Water 1, 1315 315 000 ml @ 125 mls/hr IV . Q8H SARAH Rx#:[id number] Dextrose 5% in Water 1, 100 000 ml @ 50 mls/hr IV . Q20H SARAH Rx#:[id number] Magnesium Sulfate-D5w Pmx 100 100 1 gm In Dextrose/Water 1 100ml.bag @ 100 mls/hr IVPB Q1H SARAH Rx#: [id number] pressure bag 33 36 9 Intake, IV Titration 1944.463 981.594 105.100 Amount Dextrose 5% in Water 1, 1125 125 000 ml @ 125 mls/hr IV . Q8H SARAH Rx#:[id number] Insulin Regular 100 unit 55.983 25.484 In Sodium Chloride 0.9% 100 ml @ Per Protocol IV .Q0M SARAH Rx#:[id number] Magnesium Sulfate-D5w Pmx 200 1 gm In Dextrose/Water 1 100ml.bag @ 100 mls/hr IVPB Q1H SARAH Rx#: [id number] Propofol 1,000 mg In 563.48 831.110 105.100 Empty Bag 1 bag @ Titrate IV .Q0M SARAH Rx#: [id number] Other 60 60 Output: Urine 2275 1860 1325 Estimated Blood Loss 20 Other: Voiding Method Indwelling Catheter Indwelling Catheter Indwelling Catheter ABP, PAP, CO, CI - Last Documented Arterial Blood Pressure 134/59 - Labs CBC & Chem 7: 10/13/17 04:00 10/13/17 04:00 Labs: Abnormal Lab Results - Last 24 Hours (Table) 10/12/17 10/12/17 10/12/17 Range/Units 10:15 11:05 13:05 RBC (3.80-5.40) m/uL Hgb (11.4-16.0) gm/dL Hct (34.0-46.0) % RDW (11.5-15.5) % Lymphocytes # (1.0-4.8) k/uL ABG pCO2 (35-45) mmHg ABG pO2 (83-108) mmHg ABG HCO3 (21-25) mmol/L ABG Total CO2 (19-24) mmol/L ABG O2 Saturation (94-97) % Carbon Dioxide (22-30) mmol/L Glucose (74-99) mg/dL POC Glucose (mg/dL) 148 H 158 H 186 H (75-99) mg/dL Calcium (8.4-10.2) mg/dL Magnesium (1.6-2.3) mg/dL 10/12/17 10/12/17 10/12/17 Range/Units 15:30 16:01 16:53 RBC (3.80-5.40) m/uL Hgb (11.4-16.0) gm/dL Hct (34.0-46.0) % RDW (11.5-15.5) % Lymphocytes # (1.0-4.8) k/uL ABG pCO2 (35-45) mmHg ABG pO2 (83-108) mmHg ABG HCO3 (21-25) mmol/L ABG Total CO2 (19-24) mmol/L ABG O2 Saturation (94-97) % Carbon Dioxide (22-30) mmol/L Glucose (74-99) mg/dL POC Glucose (mg/dL) 168 H 172 H 171 H (75-99) mg/dL Calcium (8.4-10.2) mg/dL Magnesium (1.6-2.3) mg/dL 10/12/17 10/12/17 10/12/17 Range/Units 18:23 19:07 20:07 RBC (3.80-5.40) m/uL Hgb (11.4-16.0) gm/dL Hct (34.0-46.0) % RDW (11.5-15.5) % Lymphocytes # (1.0-4.8) k/uL ABG pCO2 (35-45) mmHg ABG pO2 (83-108) mmHg ABG HCO3 (21-25) mmol/L ABG Total CO2 (19-24) mmol/L ABG O2 Saturation (94-97) % Carbon Dioxide (22-30) mmol/L Glucose (74-99) mg/dL POC Glucose (mg/dL) 157 H 160 H 150 H (75-99) mg/dL Calcium (8.4-10.2) mg/dL Magnesium (1.6-2.3) mg/dL 10/12/17 10/12/17 10/13/17 Range/Units 21:25 22:03 00:34 RBC (3.80-5.40) m/uL Hgb (11.4-16.0) gm/dL Hct (34.0-46.0) % RDW (11.5-15.5) % Lymphocytes # (1.0-4.8) k/uL ABG pCO2 (35-45) mmHg ABG pO2 (83-108) mmHg ABG HCO3 (21-25) mmol/L ABG Total CO2 (19-24) mmol/L ABG O2 Saturation (94-97) % Carbon Dioxide (22-30) mmol/L Glucose (74-99) mg/dL POC Glucose (mg/dL) 153 H 155 H 168 H (75-99) mg/dL Calcium (8.4-10.2) mg/dL Magnesium (1.6-2.3) mg/dL 10/13/17 10/13/17 10/13/17 Range/Units 02:28 04:00 04:00 RBC 3.48 L (3.80-5.40) m/uL Hgb 9.5 L (11.4-16.0) gm/dL Hct 30.5 L (34.0-46.0) % RDW 16.0 H (11.5-15.5) % Lymphocytes # 0.5 L (1.0-4.8) k/uL ABG pCO2 (35-45) mmHg ABG pO2 (83-108) mmHg ABG HCO3 (21-25) mmol/L ABG Total CO2 (19-24) mmol/L ABG O2 Saturation (94-97) % Carbon Dioxide 34 H (22-30) mmol/L Glucose 169 H (74-99) mg/dL POC Glucose (mg/dL) 160 H (75-99) mg/dL Calcium 8.3 L (8.4-10.2) mg/dL Magnesium 1.5 L (1.6-2.3) mg/dL 10/13/17 10/13/17 10/13/17 Range/Units 04:00 04:38 05:55 RBC (3.80-5.40) m/uL Hgb (11.4-16.0) gm/dL Hct (34.0-46.0) % RDW (11.5-15.5) % Lymphocytes # (1.0-4.8) k/uL ABG pCO2 54 H (35-45) mmHg ABG pO2 65 L (83-108) mmHg ABG HCO3 35 H (21-25) mmol/L ABG Total CO2 36 H (19-24) mmol/L ABG O2 Saturation 91.5 L (94-97) % Carbon Dioxide (22-30) mmol/L Glucose (74-99) mg/dL POC Glucose (mg/dL) 164 H 169 H (75-99) mg/dL Calcium (8.4-10.2) mg/dL Magnesium (1.6-2.3) mg/dL 10/13/17 Range/Units 08:05 RBC (3.80-5.40) m/uL Hgb (11.4-16.0) gm/dL Hct (34.0-46.0) % RDW (11.5-15.5) % Lymphocytes # (1.0-4.8) k/uL ABG pCO2 (35-45) mmHg ABG pO2 (83-108) mmHg ABG HCO3 (21-25) mmol/L ABG Total CO2 (19-24) mmol/L ABG O2 Saturation (94-97) % Carbon Dioxide (22-30) mmol/L Glucose (74-99) mg/dL POC Glucose (mg/dL) 169 H (75-99) mg/dL Calcium (8.4-10.2) mg/dL Magnesium (1.6-2.3) mg/dL Microbiology - Last 24 Hours (Table) 10/09/17 02:35 Blood Culture - Preliminary Blood No Growth after 96 hours 10/09/17 02:15 Blood Culture - Preliminary Blood No Growth after 96 hours Assessment and Plan Plan: Assessment: #1. Acute kidney injury secondary to ischemic ATN secondary to hypotension, nonsteroidals and diuresis. Creatinine was 5.6 at an outside facility prior to transfer here and is down to 0.7 today. Urinalysis is quite benign. No evidence of hydronephrosis noted on renal ultrasound. Baseline creatinine is near 1. #2. Hypovolemic hyponatremia. Resolved. She actually became hypernatremic due to polyuria and lack of oral water intake. Improving. #3. Hypovolemic shock from overdiuresis. Levofed discontinued. #4. Insulin-dependent diabetes mellitus. #5. Hypotension due to diuresis. Cortisol level was noted to be low at 5. Maintained on hydrocortisone. #6. Hyperphosphatemia secondary to acute kidney injury. Improved with diuresis. #7. Polyuria due to recovering renal function. #8. Hypomagnesemia due to poor nutritional status and polyuria. Plan: Tube feeds are currently held. I will change IVFs to 0.45% saline to be run at 125 cc/hr. Avoid nephrotoxic agents and hypotensive episodes. Continue to monitor renal function and urine output closely. Repeat electrolytes in the morning. PEG feeds to be started at 3 pm today. Replace Magnesium - 2 g IV today.
[2017-10-13 10:24] LABS: Glucose,Whole Blood 154 mg/dL (75-99)
[2017-10-13] MEDS: INSULIN REGULAR 100 UNIT in SODIUM CHLORIDE 0.9% 100 ML IV SCH (10:28)
[2017-10-13 12:25] LABS: Glucose,Whole Blood 135 mg/dL (75-99)
[2017-10-13 13:27] LABS: Glucose,Whole Blood 143 mg/dL (75-99)
[2017-10-13 14:15] LABS: Glucose,Whole Blood 160 mg/dL (75-99)
[2017-10-13 15:14] LABS: Glucose,Whole Blood 153 mg/dL (75-99)
[2017-10-13 16:06] LABS: Glucose,Whole Blood 158 mg/dL (75-99)
[2017-10-13 18:08] LABS: Glucose,Whole Blood 157 mg/dL (75-99)
--- NOTE | 2017-10-13 19:01 | PN ---
PROGRESS NOTE DATE OF SERVICE: 10/13/2017 This 52-year-old woman who was admitted with acute renal failure and acute tubular necrosis also had shortness of breath. Because of failure to wean, the patient had tracheostomy and PEG tube. At this time Dr. Laurent is following the patient closely. The patient also had an amount of fluid overload. already is being planned. Insulin drip is also noted. Past medical history reviewed. Review of systems could not be taken; the patient is mechanically ventilated and sedated. Current medications are reviewed and include: 1. Tylenol 650 q.6 p.r.n. 2. DuoNeb q.i.d. and p.r.n. 3. Zyloprim 200 mg p.o. daily. 4. Aspirin 81 mg daily. 5. Pulmicort 1 mg b.i.d. 6. Rocephin 1 gram at bedtime. 7. Peridex 15 mL t.i.d. 8. Lexapro 10 mg at bedtime. 9. Iron sulfate 325 mg p.o. daily. 10.Neurontin 300 mg p.o. b.i.d. 11.Heparin 5000 units subcutaneously q.8. 12.Dilaudid 2 mg q.2 p.r.n. 13.Lopressor 12.5 mg t.i.d. 15.Propofol. PHYSICAL EXAMINATION: Patient is mechanically ventilated and sedated. Vent settings are noted. Pulse is 117, blood pressure 131/58, respiration 19, temperature 100.2, pulse ox 89% on 40% FiO2. Vent settings are noted. HEENT: Conjunctivae normal. Oral mucosa moist. NECK: No jugular venous distention. No carotid bruit. No lymph node enlargement. Tracheostomy. CARDIOVASCULAR SYSTEM: S1, S2 muffled. RESPIRATORY SYSTEM: Breath sounds diminished at the bases. A few scattered rhonchi and crackles. ABDOMEN: Soft. PEG tube in situ. LEGS: No edema. No swelling. NERVOUS SYSTEM: As mentioned earlier. Patient is mechanically ventilated and sedated. SKIN: No ulcer, rash, bleeding. LABS: Glucose 151, 158. Other labs include WBC 5.7, hemoglobin 9.5, magnesium 1.5. ASSESSMENT: 1. Acute renal failure, possibly prerenal renal failure, with acute tubular necrosis, multifactorial, present on admission. 2. Shortness of breath with chronic obstructive pulmonary disease, acute exacerbation, as well as acute hypoxic hypercarbic respiratory failure as well as congestive heart failure, acute exacerbation, with acute diastolic congestive heart failure, status post PEG tube placement and tracheostomy. 3. Acute respiratory acidosis, on mechanical ventilation. 4. Hyponatremia. 5. Morbid obesity with body mass index of 56.6 and obesity hypoventilation syndrome. 6. Asthma, chronic obstructive pulmonary disease. 7. History of congestive heart failure. 8. Diabetes mellitus, type 2. 9. Hypertension. 10.Hyperlipidemia. 11.History of degenerative joint disease. 12.History of pneumonia. 13.History of sleep apnea. 14.History of gout. 15.History of peripheral neuropathy. RECOMMENDATIONS AND DISCUSSION: I recommend to continue current medication, continue symptomatic treatment. Otherwise, at this time continue mechanical ventilation, continue with antibiotics, continue the rest of the medications. Further weaning attempts per Dr. Laurent. Further recommendations to follow. MMLALAL / NABILN: [id number] / MTDD
[2017-10-13 20:19] LABS: Glucose,Whole Blood 161 mg/dL (75-99)
[2017-10-13] MEDS: cefTRIAXone IN SWFI 1,000 MG/10 ML SYRINGE IVP SCH (20:23)
[2017-10-13] MEDS: ESCITALOPRAM 10 MG TAB PO SCH ×2 (21:44→21:47)
[2017-10-13 22:01] LABS: Glucose,Whole Blood 151 mg/dL (75-99)
[2017-10-14 00:01] LABS: Glucose,Whole Blood 152 mg/dL (75-99)
[2017-10-14] MEDS: SODIUM CHLORIDE 0.45% 1,000 ML IV SCH ×3 (01:54→09:20)
[2017-10-14 01:58] LABS: Glucose,Whole Blood 164 mg/dL (75-99)
[2017-10-14 04:29] LABS: Glucose,Whole Blood 153 mg/dL (75-99)
[2017-10-14 04:53] LABS: Basophils % (A) 0 %; Eosinophils # (A) 0.1 k/uL (0-0.7); Eosinophils % (A) 1 %; HCT 32.2 % (34.0-46.0); HGB 9.6 gm/dL (11.4-16.0); Hypochromasia Marked; Lymphocytes # (A) 0.7 k/uL (1.0-4.8); Lymphocytes % (A) 11 %; MCH 26.8 pg (25.0-35.0); MCHC 29.8 g/dL (31.0-37.0); MCV 90.2 fL (80.0-100.0); Monocytes # (A) 0.3 k/uL (0-1.0); Monocytes % (A) 5 %; Neutrophils # (A) 4.9 k/uL (1.3-7.7); Neutrophils % (A) 79 %; Platelet Count 191 k/uL (150-450); RBC 3.58 m/uL (3.80-5.40); RDW 15.7 % (11.5-15.5); WBC 6.2 k/uL (3.8-10.6)
[2017-10-14 04:59] LABS: ABG Base Excess 13.4 mmol/L; ABG HCO3 38 mmol/L (21-25); ABG Oxygen Saturation 89.1 % (94-97); ABG PCO2 55 mmHg (35-45); ABG PH 7.44 (7.35-7.45); ABG PO2 57 mmHg (83-108); ABG TCO2 39 mmol/L (19-24)
[2017-10-14 05:03] LABS: Anion Gap 4 mmol/L; Blood Urea Nitrogen 10 mg/dL (7-17); Calcium 8.7 mg/dL (8.4-10.2); Carbon Dioxide 37 mmol/L (22-30); Chloride 105 mmol/L (98-107); Glucose 158 mg/dL (74-99); Phosphorus 3.4 mg/dL (2.5-4.5); Potassium 3.8 mmol/L (3.5-5.1); Sodium 146 mmol/L (137-145)
[2017-10-14] MEDS ORDERED: Potassium Replacement Protocol 1 EACH MISC MISCELLANE PRN (05:29)
[2017-10-14 05:56] LABS: Glucose,Whole Blood 158 mg/dL (75-99)
[2017-10-14] MEDS ORDERED: POTASSIUM BICARBONATE/CIT AC 20 MEQ TABLET.EFF NG-TUBE SCH ×2 (06:00→22:00)
[2017-10-14] MEDS: MAGNESIUM SULFATE-D5W PMX 1 GM in DEXTROSE/WATER 1 100ML.BAG IVPB SCH ×2 (06:32→07:51)
[2017-10-14] MEDS: IPRATROPIUM-ALBUTEROL 3 ML NEB INHALATION SCH ×3 (07:50→19:50)
[2017-10-14] MEDS: BUDESONIDE 1 MG/2 ML NEBU INHALATION SCH ×2 (07:50→19:50)
[2017-10-14] MEDS: HEPARIN SODIUM,PORCINE 5,000 UNIT/ML 1 ML VIAL SQ SCH ×2 (07:52→16:05)
[2017-10-14 08:21] LABS: Glucose,Whole Blood 206 mg/dL (75-99)
[2017-10-14] MEDS: METOPROLOL TARTRATE 12.5 MG TAB PO SCH ×3 (08:27→21:01)
[2017-10-14] MEDS: CHLORHEXIDINE GLUCONATE 15 ML CUP MUCOUS MEM SCH ×2 (08:27→20:41)
[2017-10-14] MEDS: PANTOPRAZOLE 40 MG/10 ML VIAL IV SCH (08:27)
[2017-10-14] MEDS: ALLOPURINOL 100 MG TAB PO SCH (08:27)
[2017-10-14] MEDS: ASPIRIN 81 MG PO SCH (08:27)
[2017-10-14] MEDS: GABAPENTIN 300 MG CAP PO SCH ×2 (08:28→21:01)
[2017-10-14] MEDS: FERROUS SULFATE 325 MG TAB PO SCH (08:28)
[2017-10-14] MEDS: PREGABALIN 75 MG CAP PO SCH ×2 (08:29→21:01)
--- NOTE | 2017-10-14 08:36 | P.PN ---
Subjective Patient is seen in follow-up for acute kidney injury. Her creatinine was greater than 5 on admission and is down to 0.7 today. She is nonoliguric. She was transferred to the intensive care unit on October 08 due to respiratory distress and is currently intubated and sedated. Levophed has been discontinued. She was quite hypernatremic and her sodium level today is 146 this morning. She underwent tracheostomy and PEG tube placement on 10/12/17. Vital signs are stable. General: The patient appeared well nourished and normally developed. Currently intubated. HEENT: Head exam is unremarkable. Neck is without jugular venous distension. LUNGS: Lungs are clear to auscultation and percussion. Breath sounds decreased. HEART: Rate and Rhythm are regular. First and second heart sounds normal. No murmurs, rubs or gallops. ABDOMEN: Abdominal exam reveals normal bowel sounds. Non-tender and non- distended. No evidence of peritonitis. EXTREMITITES: No clubbing, cyanosis, or edema. Objective - Vital Signs Vital signs: Vital Signs Temp 99.9 F H 10/14/17 04:00 Pulse 107 H 10/14/17 08:15 Resp 18 10/14/17 07:00 BP 124/59 10/13/17 10:00 Pulse Ox 89 L 10/14/17 07:00 Intake & Output 10/13/17 10/14/17 10/14/17 18:59 06:59 18:59 Intake Total 0636.334 8252.684 230.8 Output Total 3525 1725 75 Balance -1767.300 429.684 155.8 Weight 241.7 kg Intake: IV 1576 1536 168 Dextrose 5% in Water 1, 440 000 ml @ 125 mls/hr IV . Q8H SARAH Rx#:[id number] Magnesium Sulfate-D5w Pmx 100 1 gm In Dextrose/Water 1 100ml.bag @ 100 mls/hr IVPB Q1H SARAH Rx#: [id number] Magnesium Sulfate-D5w Pmx 100 1 gm In Dextrose/Water 1 100ml.bag @ 100 mls/hr IVPB Q1H SARAH Rx#: [id number] Sodium Chloride 0.45% 1, 1000 1500 65 000 ml @ 125 mls/hr IV . Q8H SARAH Rx#:[id number] pressure bag 36 36 3 Intake, IV Titration 161.700 48.684 12.8 Amount Insulin Regular 100 unit 56.600 48.684 12.8 In Sodium Chloride 0.9% 100 ml @ Per Protocol IV .Q0M SARAH Rx#:[id number] Propofol 1,000 mg In 105.100 Empty Bag 1 bag @ Titrate IV .Q0M SARAH Rx#: [id number] Tube Feeding 20 480 50 Other 90 Output: Urine 3525 1725 75 Other: Voiding Method Indwelling Catheter Indwelling Catheter ABP, PAP, CO, CI - Last Documented Arterial Blood Pressure 124/54 - Labs CBC & Chem 7: 10/14/17 04:20 10/14/17 04:20 Labs: Abnormal Lab Results - Last 24 Hours (Table) 10/13/17 10/13/17 10/13/17 Range/Units 10:23 12:23 13:25 RBC (3.80-5.40) m/uL Hgb (11.4-16.0) gm/dL Hct (34.0-46.0) % MCHC (31.0-37.0) g/dL RDW (11.5-15.5) % Lymphocytes # (1.0-4.8) k/uL ABG pCO2 (35-45) mmHg ABG pO2 (83-108) mmHg ABG HCO3 (21-25) mmol/L ABG Total CO2 (19-24) mmol/L ABG O2 Saturation (94-97) % Sodium (137-145) mmol/L Carbon Dioxide (22-30) mmol/L Glucose (74-99) mg/dL POC Glucose (mg/dL) 154 H 135 H 143 H (75-99) mg/dL 10/13/17 10/13/17 10/13/17 Range/Units 14:13 15:12 16:04 RBC (3.80-5.40) m/uL Hgb (11.4-16.0) gm/dL Hct (34.0-46.0) % MCHC (31.0-37.0) g/dL RDW (11.5-15.5) % Lymphocytes # (1.0-4.8) k/uL ABG pCO2 (35-45) mmHg ABG pO2 (83-108) mmHg ABG HCO3 (21-25) mmol/L ABG Total CO2 (19-24) mmol/L ABG O2 Saturation (94-97) % Sodium (137-145) mmol/L Carbon Dioxide (22-30) mmol/L Glucose (74-99) mg/dL POC Glucose (mg/dL) 160 H 153 H 158 H (75-99) mg/dL 10/13/17 10/13/17 10/13/17 Range/Units 18:07 20:18 21:58 RBC (3.80-5.40) m/uL Hgb (11.4-16.0) gm/dL Hct (34.0-46.0) % MCHC (31.0-37.0) g/dL RDW (11.5-15.5) % Lymphocytes # (1.0-4.8) k/uL ABG pCO2 (35-45) mmHg ABG pO2 (83-108) mmHg ABG HCO3 (21-25) mmol/L ABG Total CO2 (19-24) mmol/L ABG O2 Saturation (94-97) % Sodium (137-145) mmol/L Carbon Dioxide (22-30) mmol/L Glucose (74-99) mg/dL POC Glucose (mg/dL) 157 H 161 H 151 H (75-99) mg/dL 10/13/17 10/14/17 10/14/17 Range/Units 23:57 01:56 04:20 RBC (3.80-5.40) m/uL Hgb (11.4-16.0) gm/dL Hct (34.0-46.0) % MCHC (31.0-37.0) g/dL RDW (11.5-15.5) % Lymphocytes # (1.0-4.8) k/uL ABG pCO2 (35-45) mmHg ABG pO2 (83-108) mmHg ABG HCO3 (21-25) mmol/L ABG Total CO2 (19-24) mmol/L ABG O2 Saturation (94-97) % Sodium 146 H (137-145) mmol/L Carbon Dioxide 37 H (22-30) mmol/L Glucose 158 H (74-99) mg/dL POC Glucose (mg/dL) 152 H 164 H (75-99) mg/dL 10/14/17 10/14/17 10/14/17 Range/Units 04:20 04:23 04:55 RBC 3.58 L (3.80-5.40) m/uL Hgb 9.6 L (11.4-16.0) gm/dL Hct 32.2 L (34.0-46.0) % MCHC 29.8 L (31.0-37.0) g/dL RDW 15.7 H (11.5-15.5) % Lymphocytes # 0.7 L (1.0-4.8) k/uL ABG pCO2 55 H (35-45) mmHg ABG pO2 57 L (83-108) mmHg ABG HCO3 38 H (21-25) mmol/L ABG Total CO2 39 H (19-24) mmol/L ABG O2 Saturation 89.1 L (94-97) % Sodium (137-145) mmol/L Carbon Dioxide (22-30) mmol/L Glucose (74-99) mg/dL POC Glucose (mg/dL) 153 H (75-99) mg/dL 10/14/17 10/14/17 Range/Units 05:54 08:19 RBC (3.80-5.40) m/uL Hgb (11.4-16.0) gm/dL Hct (34.0-46.0) % MCHC (31.0-37.0) g/dL RDW (11.5-15.5) % Lymphocytes # (1.0-4.8) k/uL ABG pCO2 (35-45) mmHg ABG pO2 (83-108) mmHg ABG HCO3 (21-25) mmol/L ABG Total CO2 (19-24) mmol/L ABG O2 Saturation (94-97) % Sodium (137-145) mmol/L Carbon Dioxide (22-30) mmol/L Glucose (74-99) mg/dL POC Glucose (mg/dL) 158 H 206 H (75-99) mg/dL Microbiology - Last 24 Hours (Table) 10/09/17 02:35 Blood Culture - Preliminary Blood No Growth after 120 hours 10/09/17 02:15 Blood Culture - Preliminary Blood No Growth after 120 hours Assessment and Plan Plan: Assessment: #1. Acute kidney injury secondary to ischemic ATN secondary to hypotension, nonsteroidals and diuresis. Creatinine was 5.6 at an outside facility prior to transfer here and is down to 0.7 today. Urinalysis is quite benign. No evidence of hydronephrosis noted on renal ultrasound. Baseline creatinine is near 1. #2. Hypovolemic hyponatremia. Resolved. She actually became hypernatremic due to polyuria and lack of oral water intake - sodium level CXLVI today. #3. Hypovolemic shock from overdiuresis. Levofed discontinued. #4. Insulin-dependent diabetes mellitus. #5. Hypotension due to diuresis. Cortisol level was noted to be low at 5. Hemodynamically stable now. Hydrocortisone discontinued. #6. Hyperphosphatemia secondary to acute kidney injury. Improved with diuresis. #7. Polyuria which is likely related to recovering renal function. I will also check a urine osmolality. #8. Hypomagnesemia due to poor nutritional status. Improved post replacement. Plan: Maintain tube feeds. Discontinue half normal saline. Increase free water flushes to 300 mL every 6 hours. Check urine osmolality. Avoid nephrotoxic agents and hypotensive episodes. Repeat electrolytes in the morning. Replace Magnesium - 2 g IV today.
--- NOTE | 2017-10-14 08:53 | P.PN ---
Subjective Progress Note Date: 10/14/17 Principal diagnosis: Respiratory failure, acute kidney injury, pickwickian syndrome Progress note dated 10/10/2017 This is a 52-year-old obese female was admitted with a diagnosis of respiratory failure and acute kidney injury. She was admitted on October 07 and was intubated on the . She remains on the ventilator. The patient is initially on BiPAP, but developed tere respiratory failure or car intubation. I think this patient is a patient who would best be suited for early tracheostomy given her multiple episodes of acute respiratory failure her severe COPD her pickwickian syndrome and her sleep apnea syndrome. Currently the patient herself cannot give any additional history as she is now on the ventilator. Vent settings include the assist control mode, rate is 18 tidal volume was 500 FiO2 50% to be dropped down to 40%, PEEP of 5. Blood gases show a PaO2 of 96 a PaCO2 of 59 and a pH of 7.37. She is receiving a saline IV at 1 50 mL an hour norepinephrine at 1 [place] per gram per minute propofol at 50 mics per kilogram per minute insulin drip at 3 units an hour and vital AF with a rate of 45 and a goal of 45. Because of that because of hypernatremia, have to add some free water flushes. Her other medical history includes chronic hypoxemic and hypercapnic respiratory failure secondary to pickwickian syndrome , sleep apnea syndrome, and COPD. In addition, the patient has hypovolemic shock, acute kidney injury secondary to ATN, hypernatremia hypotension insulin- dependent diabetes mellitus COPD morbid obesity sleep apnea syndrome diabetic neuropathy hypertension hyperlipidemia DJD and gout and hypothyroidism. Progress note dated 10/11/2017 This is a 52-year-old obese female who was admitted with a diagnosis of respiratory failure and acute kidney injury. She was admitted on the . She was intubated today later on the . She remains on the ventilator. She' s not made much or any progress. The patient was initially on BiPAP but failed BiPAP. The patient will be evaluated by cardiothoracic surgery for early tracheostomy and PEG tube placement given her many episodes of respiratory failure. In addition to morbid obesity and severe COPD, she has history of pickwickian syndrome and sleep apnea syndrome. Most of the time she is BiPAP dependent. We will do a daily interruption of sedation today and evaluate her for a spontaneous breathing trial. Currently, the patient's on the assist control mode rate of 18, tidal volume 500, FiO2 40%, PEEP of 5. Arterial blood gases show a PaO2 of 68 PaCO2 of 58 and pH 7.39. She's currently on an insulin drip at 4 units an hour saline IV at 100 mL an hour propofol at 50 mics because kilogram per minute and tube feeds with vital AF at 55 with a goal of 55 mL an hour. Progress note dated 10/12/2017 52-year-old obese female admitted with a diagnosis of respiratory failure and acute kidney injury. She was admitted on the . She was intubated later on the . She remains on the ventilator. She has not made any progress despite daily interruption to sedation and spontaneous breathing trials. I did ask thoracic surgery to consider tracheostomy which is apparently planned for tomorrow. The patient was initially on BiPAP failed that. In addition to morbid obesity and severe COPD with multiple episodes of respiratory failure, the patient has a history pickwickian syndrome and sleep apnea syndrome. Most the time when she is here, she is BiPAP dependent. Currently, the patient's ventilator settings are unchanged and include the assist control mode rate of 18 , tidal volume 500, FiO2 40%, PEEP of 5. Blood gases are noted. The patient's on a basic IV and sedation with propofol as well as her tube feeds which is vital AF at 55 with a goal of 55 MLS per hour. Her condition is changed very little since yesterday. Her chest x-ray does show some mild fluid overload and some infiltrates or atelectasis at the lung bases. Today again, we will try a daily eruption of sedation with a spontaneous breathing trial as we do every day. Should she do better today, we will cancel the tracheostomy and PEG tube placement. In addition to the above, she has a history of hypothyroidism, gout , DJD, hyperlipidemia, hypertension, diabetic neuropathy, sleep apnea syndrome, diabetes, and acute tubular necrosis. Progress note dated 10/13/2017 52-year-old obese female admitted with a diagnosis of respiratory failure. She was admitted on the . She was intubated later on the . She remains on the ventilator. She was making no progress. The patient has multiple episodes of admissions to the hospital with hypoxemic and hypercapnic respiratory failure. Because of her lack of progress, the patient underwent a tracheostomy and PEG tube placement yesterday by one of the cardiothoracic surgeons. She seemed to do relatively well today and the plan is to old her sedation and put her on PSV and CPAP. I think she will do relatively well. Her sleep apnea is effectively carried out she has a tracheostomy. I don't know if that will be permanent or not. The patient's currently on the mechanical ventilator. Vent settings include a assist control mode, rate 18 tidal volume 500 FiO2 40% and PEEP of 5. The patient's blood gases show a PaO2 of 65 a PaCO2 of 54 and a pH of 7.42. Her IVs included D5W at 125 mL an hour, propofol at 25 mics per kilogram per minute and an insulin drip at 5 units per hour. Her peak airway pressure is 28 and her minute volume is 10.6. When she is awake, we'll place her on PSV 8 CPAP of 5. Chest x-ray was reviewed. Other than removal of endotracheal tube and placement of the tracheostomy tube, the x-ray looks very similar. Progress note dated 10/14/2017 52-year-old obese female admitted with a diagnosis of respiratory failure. The patient had a tracheostomy and PEG tube done 2 days ago on October 12. The patient was initially admitted on the . She was intubated later on the . She remains on the ventilator was making no progress and hence the tracheostomy and PEG tube placement. She's had multiple episodes of both hypoxemic and hypercapnic respiratory failure. Most of the time she becomes BiPAP dependent. Yesterday she had a daily interruption of sedation with a trial a PSV CPAP and she did okay for about 2 hours. Today, we tried the same but she did very poorly. Put her on PSV 8 CPAP of 5. Today we are going to start her on Provera 20 mg 3 times a day as a respiratory stimulant as well as Diamox 500 mg orally per day. We'll also see if we can get some excess fluid off of her. She is quite edematous and has significant anasarca. We'll add some Lasix 40 mg every 12. In addition, the IV of half normal saline will be switched to KVO. We'll increase free water to 100 mL every 6 hours we will start some insulin at 3 units an hour and she is on vital high protein at 50 mL now with a goal of 59. Current vent settings are the assist control mode rate of 18 tidal volume of 500 FiO2 of 40% and PEEP of 5. Blood gases on that showed a PaO2 of 57 a PaCO2 of 55 and a pH of 7.44. Objective - Vital Signs Vital signs: Vital Signs Temp 99.9 F H 10/14/17 04:00 Pulse 107 H 10/14/17 08:15 Resp 18 10/14/17 07:00 BP 124/59 10/13/17 10:00 Pulse Ox 89 L 10/14/17 07:00 Intake & Output 10/13/17 10/14/17 10/14/17 18:59 06:59 18:59 Intake Total 6841.669 5841.684 230.8 Output Total 3525 1725 75 Balance -1767.300 429.684 155.8 Weight 241.7 kg Intake: IV 1576 1536 168 Dextrose 5% in Water 1, 440 000 ml @ 125 mls/hr IV . Q8H SARAH Rx#:[id number] Magnesium Sulfate-D5w Pmx 100 1 gm In Dextrose/Water 1 100ml.bag @ 100 mls/hr IVPB Q1H SARAH Rx#: [id number] Magnesium Sulfate-D5w Pmx 100 1 gm In Dextrose/Water 1 100ml.bag @ 100 mls/hr IVPB Q1H SARAH Rx#: [id number] Sodium Chloride 0.45% 1, 1000 1500 65 000 ml @ 125 mls/hr IV . Q8H SARAH Rx#:[id number] pressure bag 36 36 3 Intake, IV Titration 161.700 48.684 12.8 Amount Insulin Regular 100 unit 56.600 48.684 12.8 In Sodium Chloride 0.9% 100 ml @ Per Protocol IV .Q0M SARAH Rx#:[id number] Propofol 1,000 mg In 105.100 Empty Bag 1 bag @ Titrate IV .Q0M SARAH Rx#: [id number] Tube Feeding 20 480 50 Other 90 Output: Urine 3525 1725 75 Other: Voiding Method Indwelling Catheter Indwelling Catheter ABP, PAP, CO, CI - Last Documented Arterial Blood Pressure 124/54 - Exam No acute distress, tracheostomy tube in place. The patient is sedated. HEENT examination is grossly unremarkable. Mucous membranes are moist. No oral lesions. Neck supple. Full range of motion. No adenopathy thyromegaly or neck vein distention. Cardiovascular examination reveals regular rhythm rate. S1-S2 normal. No S3 or S4. No discernible murmur noted. Heart sounds are distant. Lungs reveal coarse bilateral breath sounds. Breath sounds are diminished. No wheezes or rhonchi. Abdomen obese, and bowel sounds are noted. No masses or tenderness appreciated. PEG tube noted. Extremities are intact. Slight edema noted. Skin is without rash or lesion. Neurologic examination could not be adequately assessed as patient is sedated. - Labs CBC & Chem 7: 10/14/17 04:20 10/14/17 04:20 Labs: Abnormal Lab Results - Last 24 Hours (Table) 10/13/17 10/13/17 10/13/17 Range/Units 10:23 12:23 13:25 RBC (3.80-5.40) m/uL Hgb (11.4-16.0) gm/dL Hct (34.0-46.0) % MCHC (31.0-37.0) g/dL RDW (11.5-15.5) % Lymphocytes # (1.0-4.8) k/uL ABG pCO2 (35-45) mmHg ABG pO2 (83-108) mmHg ABG HCO3 (21-25) mmol/L ABG Total CO2 (19-24) mmol/L ABG O2 Saturation (94-97) % Sodium (137-145) mmol/L Carbon Dioxide (22-30) mmol/L Glucose (74-99) mg/dL POC Glucose (mg/dL) 154 H 135 H 143 H (75-99) mg/dL 10/13/17 10/13/17 10/13/17 Range/Units 14:13 15:12 16:04 RBC (3.80-5.40) m/uL Hgb (11.4-16.0) gm/dL Hct (34.0-46.0) % MCHC (31.0-37.0) g/dL RDW (11.5-15.5) % Lymphocytes # (1.0-4.8) k/uL ABG pCO2 (35-45) mmHg ABG pO2 (83-108) mmHg ABG HCO3 (21-25) mmol/L ABG Total CO2 (19-24) mmol/L ABG O2 Saturation (94-97) % Sodium (137-145) mmol/L Carbon Dioxide (22-30) mmol/L Glucose (74-99) mg/dL POC Glucose (mg/dL) 160 H 153 H 158 H (75-99) mg/dL 10/13/17 10/13/17 10/13/17 Range/Units 18:07 20:18 21:58 RBC (3.80-5.40) m/uL Hgb (11.4-16.0) gm/dL Hct (34.0-46.0) % MCHC (31.0-37.0) g/dL RDW (11.5-15.5) % Lymphocytes # (1.0-4.8) k/uL ABG pCO2 (35-45) mmHg ABG pO2 (83-108) mmHg ABG HCO3 (21-25) mmol/L ABG Total CO2 (19-24) mmol/L ABG O2 Saturation (94-97) % Sodium (137-145) mmol/L Carbon Dioxide (22-30) mmol/L Glucose (74-99) mg/dL POC Glucose (mg/dL) 157 H 161 H 151 H (75-99) mg/dL 10/13/17 10/14/17 10/14/17 Range/Units 23:57 01:56 04:20 RBC (3.80-5.40) m/uL Hgb (11.4-16.0) gm/dL Hct (34.0-46.0) % MCHC (31.0-37.0) g/dL RDW (11.5-15.5) % Lymphocytes # (1.0-4.8) k/uL ABG pCO2 (35-45) mmHg ABG pO2 (83-108) mmHg ABG HCO3 (21-25) mmol/L ABG Total CO2 (19-24) mmol/L ABG O2 Saturation (94-97) % Sodium 146 H (137-145) mmol/L Carbon Dioxide 37 H (22-30) mmol/L Glucose 158 H (74-99) mg/dL POC Glucose (mg/dL) 152 H 164 H (75-99) mg/dL 10/14/17 10/14/17 10/14/17 Range/Units 04:20 04:23 04:55 RBC 3.58 L (3.80-5.40) m/uL Hgb 9.6 L (11.4-16.0) gm/dL Hct 32.2 L (34.0-46.0) % MCHC 29.8 L (31.0-37.0) g/dL RDW 15.7 H (11.5-15.5) % Lymphocytes # 0.7 L (1.0-4.8) k/uL ABG pCO2 55 H (35-45) mmHg ABG pO2 57 L (83-108) mmHg ABG HCO3 38 H (21-25) mmol/L ABG Total CO2 39 H (19-24) mmol/L ABG O2 Saturation 89.1 L (94-97) % Sodium (137-145) mmol/L Carbon Dioxide (22-30) mmol/L Glucose (74-99) mg/dL POC Glucose (mg/dL) 153 H (75-99) mg/dL 10/14/17 10/14/17 Range/Units 05:54 08:19 RBC (3.80-5.40) m/uL Hgb (11.4-16.0) gm/dL Hct (34.0-46.0) % MCHC (31.0-37.0) g/dL RDW (11.5-15.5) % Lymphocytes # (1.0-4.8) k/uL ABG pCO2 (35-45) mmHg ABG pO2 (83-108) mmHg ABG HCO3 (21-25) mmol/L ABG Total CO2 (19-24) mmol/L ABG O2 Saturation (94-97) % Sodium (137-145) mmol/L Carbon Dioxide (22-30) mmol/L Glucose (74-99) mg/dL POC Glucose (mg/dL) 158 H 206 H (75-99) mg/dL Microbiology - Last 24 Hours (Table) 10/09/17 02:35 Blood Culture - Preliminary Blood No Growth after 120 hours 10/09/17 02:15 Blood Culture - Preliminary Blood No Growth after 120 hours Assessment and Plan Assessment: Assessment Acute on chronic hypoxemic and hypercapnic respiratory failure secondary to COPD morbid obesity sleep apnea syndrome and pickwickian syndrome Hypovolemic shock Failure to wean from mechanical ventilation despite daily interruption of sedation and spontaneous breathing trials, status post tracheostomy and PEG tube placement on 10/12/2017 Acute kidney injury, secondary to acute tubular necrosis Hypernatremia Hypotension Diabetes mellitus COPD Sleep apnea syndrome Pickwickian syndrome, secondary to morbid obesity. Diabetic neuropathy Hypertension Hyperlipidemia DJD Gout Hypothyroidism Plan: Plan dated 10/10/2017 The patient's overall prognosis is poor. The patient's FiO2 will be dropped from 50-40%. The patient's norepinephrine will be weaned off. The patient will continue with tube feeds. The patient will have free water added to the regimen at 200 mL every 4 hours. We'll talk to the family about CODE STATUS. In addition, the patient should have an early tracheostomy and PEG tube even her multiple episodes of respiratory failure. Additional recommendations and suggestions are forthcoming. Prognosis is poor meds labs and x-rays are all reviewed. Plan dated 10/11/2017 Overall, patient's doing about the same. The patient's of sedation will be held and will do a daily eruption of sedation With the potential for a spontaneous breathing trial. The patient's vent settings were adjusted accordingly yesterday. Her gas exchange is reasonable. She's pretty much at baseline. She is a PaCO2 retainer. Last cardiothoracic surgeons to see her for possible tracheostomy and PEG tube placement. Her family has been notified. They're in agreement with this. Additional recommendations and suggestions are forthcoming. Overall prognosis is poor. Labs x-rays a medications are all reviewed. Critical care time 33 minutes Plan dated 10/12/2017 The patient's overall condition is about the same. We will do a daily interruption of sedation and possibly a spontaneous breathing trial. She is scheduled for tracheostomy and feeding tube placement tomorrow. Labs x-rays and medications are all reviewed. Microbiology is reviewed. Chest x-rays reviewed. Overall prognosis is poor. The norepinephrine has been weaned off. The patient's getting free water for her hypernatremia. CODE STATUS will be addressed. Currently she still is a full code. Again overall prognosis remains poor. Critical care time 32 minutes Plan dated 10/13/2017 The patient's overall condition remains same. The patient's currently sedated. We'll hold sedation and see if we can get the patient on PSV and CPAP. The patient's chest x-ray looks very similar to yesterday's chest x-ray. The patient's currently just on dextrose at 125 mL an hour propofol at 25 mcg/kg/m and insulin drip at 5 units per hour. Blood gases x-rays medications labs are all reviewed. Additional recommendations and suggestions are forthcoming. Prognosis is guarded. Critical care time 34 minutes Plan dated 10/14/2017 The patient will have a PICC line placed. We will start the patient on Provera 20 mg 3 times a day and Diamox 500 mg by mouth daily. In addition, the patient will get Lasix 40 mg IV push every 12 hours. The half-normal saline will be cut back to KVO. We'll continue to feeds and increase the free water to 100 every 6. The patient did poorly today on her daily eruption of sedation and spontaneous breathing trial. We will see if we can get a PICC line in the patient. We will make a referral to select specialty. Additional recommendations and suggestions are forthcoming. Prognosis is guarded. Critical care time 32 minutes. Time with Patient: Greater than 30
[2017-10-14] MEDS: FUROSEMIDE 10 MG/ML 4 ML VIAL IV SCH ×2 (09:20→20:41)
--- NOTE | 2017-10-14 09:29 | XR ---
EXAMINATION TYPE: XR chest 1V portable DATE OF EXAM: 10/14/2017 COMPARISON: 10/13/2017 INDICATION: Tube placement TECHNIQUE: Single frontal view of the chest is obtained. FINDINGS: The heart size is normal. The pulmonary vasculature is normal. The lungs are clear. Tracheostomy tube is in the midline. EKG leads overlie the chest. Right lower lobe infiltrate may be increasing. Subsequent film has some improvement suggesting atelectasis. Exam is limited due to patie nt body habitus. Lung bases are only partially visualized IMPRESSION: 1. Exam limited due to body habitus. Some mild temporary atelectasis at the right base may be present in one of the images obtained. 2. Tracheostomy tube is in the midline.
[2017-10-14] MEDS: acetaZOLAMIDE 250 MG TAB PEG/G-TUBE SCH (10:00)
[2017-10-14] MEDS: medroxyPROGESTERone 10 MG TABLET PEG/G-TUBE SCH ×3 (10:00→21:01)
[2017-10-14 10:52] LABS: Glucose,Whole Blood 182 mg/dL (75-99)
[2017-10-14] MEDS: MORPHINE SULFATE 4 MG/ML SYRINGE IVP PRN (11:04)
[2017-10-14 12:13] LABS: Glucose,Whole Blood 195 mg/dL (75-99)
[2017-10-14] MEDS ORDERED: LIDOCAINE 2% INJ 20 MG/ML SQ ONE (12:25)
--- NOTE | 2017-10-14 12:58 | XR ---
EXAMINATION TYPE: XR chest 1V DATE OF EXAM: 10/14/2017 COMPARISON: 10/14/2016 earlier in the day INDICATION: PICC line placement TECHNIQUE: Single frontal view of the chest is obtained. FINDINGS: The heart size is normal. The pulmonary vasculature is normal. Bibasilar infiltrates are present. Exam is limited due to body habitus. PICC line has been placed, the tip is not clearly identified though the PICC line can be traced to at least the level of the brachiocephalic vein just medial to the level of the aortic arch. Tracheostom y tube is in position.. IMPRESSION: 1. Placement of a PICC line on the left. The distal tip is difficult to identify but appears to reach at least the level of the medial aortic arch level. 2. Tracheostomy tube in position. 3. Worsening bibasilar infiltrates. Correlate for atelectasis. 4. Exam limited due to body habitus.
--- NOTE | 2017-10-14 13:12 | IR ---
PICC LINE PLACEMENT: HISTORY: Infection requiring long-term antibiotic therapy PROCEDURE: Ultrasound guidance of PICC line placement. COMPLICATIONS: None ANESTHESIA: 1. 1% Lidocaine locally. FINDINGS/TECHNIQUE: The procedure was explained to the patient. The risks, complications, benefits and alternatives were discussed and any questions were answered. Informed consent was obtained. The patient was placed supine on the fluoroscopic table and prepped and draped in the usual sterile fash ion. Utilizing a 21 gauge needle and sonographic guidance, access in the left basilic vein was achi eved and there is placement of a 0.018 guidewire. The vein is patent. A 5-F. sheath was placed over the guidewire. The guidewire and dilator were removed and a 5-F. Double lumen PICC line was placed through the sheath with the chest x-ray confirming the tip at the level of the SVC. The sheath was r emoved, the catheter was flushed and sutured into position. The patient was stable throughout the pr ocedure and remained stable upon discharge from the Department of Radiology. The vein puncture was patent under ultrasound. A fragoso scale image was obtained to document patency of the vein punctured. All elements of the maximal barrier technique were utilized. IMPRESSION: 1. Successful PICC line placement under ultrasound performed bedside within the ICU.
[2017-10-14 14:15] LABS: Glucose,Whole Blood 187 mg/dL (75-99)
[2017-10-14] MEDS ORDERED: POTASSIUM CHLORIDE 20 MEQ in SODIUM CHLORIDE 0.9% 100 ML IV ONE (16:00)
[2017-10-14 16:03] LABS: Glucose,Whole Blood 198 mg/dL (75-99)
[2017-10-14] MEDS: INSULIN REGULAR 100 UNIT in SODIUM CHLORIDE 0.9% 100 ML IV SCH (16:04)
[2017-10-14 18:07] LABS: Glucose,Whole Blood 216 mg/dL (75-99)
[2017-10-14 19:28] LABS: Glucose,Whole Blood 182 mg/dL (75-99)
[2017-10-14 20:18] LABS: Glucose,Whole Blood 185 mg/dL (75-99)
[2017-10-14] MEDS: cefTRIAXone IN SWFI 1,000 MG/10 ML SYRINGE IVP SCH (20:40)
[2017-10-14] MEDS: ESCITALOPRAM 10 MG TAB PO SCH (21:01)
[2017-10-14 22:07] LABS: Glucose,Whole Blood 174 mg/dL (75-99)
--- NOTE | 2017-10-14 22:13 | PN ---
PROGRESS NOTE DATE OF SERVICE: 10/14/2017. INTERVAL HISTORY: This 52-year-old woman was admitted with acute renal failure, also had acute respiratory failure. The patient also because of failure to wean, the patient underwent a tracheostomy, PEG tube. Patient is receiving diuretics as well. Patient apparently failed weaning attempts also. Dr. Laurent and multiple consultants are following the patient closely. The chest x-ray done today showed a PICC line was also inserted because IV access. Otherwise worsening bibasilar infiltrates also noted. PAST MEDICAL HISTORY: Reviewed. REVIEW OF SYSTEMS: Cannot be taken. The patient is mechanically ventilated and sedated. CURRENT MEDICATIONS: 1. Tylenol 650 q.6h. 2. Diamox 500 mg per PEG daily. 3. DuoNeb q.i.d. p.r.n. 4. Zyloprim 200 mg. 5. Aspirin 81 mg. 6. Pulmicort b.i.d. 7. Rocephin 1 g q.h.s. 8. Lexapro 10 mg q.h.s. 9. Peridex. 10.Iron sulfate 320 mg daily. 11.Lasix 40 mg b.i.d. 12.Neurontin 300 mg b.i.d. 13.Heparin subcu q.8h. 14.Dilaudid 2 mg q.2h p.r.n. 15.Provera. 16.Lopressor 12.5 mg t.i.d. 17.Magnesium protocol. 18.Narcan. 19.Lyrica. 20.Propofol. PHYSICAL EXAM: Patient is intubated and mechanically sedated. Vent settings are noted. The patient 500, tidal volume, 45% FIO2 PEEP. Pulse is 107, blood pressure is 116/42, respirations 20, temp is normal. Pulse ox noted. HEENT: Oral mucosa moist. Neck is no jugular venous distention. No carotid bruit. Trachea central. Cardiovascular: S1, S2 muffled. Respiratory: Breath sounds diminished in the bases. A few scattered rhonchi and crackles. ABDOMEN: Soft, obese, nontender. Legs no edema. No swelling. Central nervous system: The patient is mechanically ventilated and sedated. SKIN: No ulcer, rash or bleeding. LAB STUDIES: WBC 6.2 hemoglobin 9.6 which is stable, ABGs noted. PH is normal 7.44, glucose 158, and urine osmolality 458. ASSESSMENT: 1. Acute renal failure possibly prerenal renal failure with acute tubular necrosis, multifactorial, present on admission. 2. Shortness of breath with chronic obstructive pulmonary disease acute exacerbation as well as acute hypoxic hypercarbic respiratory failure as well as congestive heart failure exacerbation, acute diastolic congestive heart failure. 3. Status post PEG tube placement and tracheostomy. 4. Acute respiratory acidosis on mechanical ventilation. 5. Hyponatremia. 6. Morbid obesity with body mass index of 56.6 and obesity hypoventilation syndrome. 7. Chronic obstructive pulmonary disease. 8. History of congestive heart failure. 9. Diabetes type 2. 10.Hypertension. 11.Hyperlipidemia. 12.History of degenerative joint disease. 13.History of pneumonia. 14.History of sleep apnea. 15.History of gout. 16.History of peripheral neuropathy. RECOMMENDATIONS AND DISCUSSION: Recommend to continue current medications, management and symptomatic treatment. Continue with bronchodilators and continue the diuretics. Monitor fluid and electrolyte balance closely. Monitor in the ICU closely with Dr. Laurent. Monitor the PEG tube feeds. Aspiration precautions otherwise, further weaning attempts per Dr. Laurent. Guarded prognosis. Further recommendations to follow. MMODL / IJN: [id number] / [email or web address]
[2017-10-15 00:17] LABS: Glucose,Whole Blood 184 mg/dL (75-99)
[2017-10-15] MEDS: HEPARIN SODIUM,PORCINE 5,000 UNIT/ML 1 ML VIAL SQ SCH ×4 (00:53→23:15)
[2017-10-15] MEDS: INSULIN REGULAR 100 UNIT in SODIUM CHLORIDE 0.9% 100 ML IV SCH ×2 (01:01→11:39)
[2017-10-15 01:43] LABS: Glucose,Whole Blood 152 mg/dL (75-99)
[2017-10-15] MEDS: MORPHINE SULFATE 4 MG/ML SYRINGE IVP PRN ×4 (01:45→23:16)
[2017-10-15] MEDS ORDERED: POTASSIUM BICARBONATE/CIT AC 20 MEQ TABLET.EFF NG-TUBE SCH (03:00)
[2017-10-15 04:27] LABS: Glucose,Whole Blood 154 mg/dL (75-99)
[2017-10-15 04:34] LABS: Basophils % (A) 0 %; Eosinophils # (A) 0.2 k/uL (0-0.7); Eosinophils % (A) 2 %; HCT 33.2 % (34.0-46.0); HGB 9.6 gm/dL (11.4-16.0); Hypochromasia Marked; Lymphocytes # (A) 0.9 k/uL (1.0-4.8); Lymphocytes % (A) 11 %; MCH 26.6 pg (25.0-35.0); MCHC 28.9 g/dL (31.0-37.0); MCV 91.8 fL (80.0-100.0); Mean Platelet Volume 8.6; Monocytes # (A) 0.4 k/uL (0-1.0); Monocytes % (A) 5 %; Neutrophils # (A) 6.3 k/uL (1.3-7.7); Neutrophils % (A) 80 %; Platelet Count 213 k/uL (150-450); RBC 3.61 m/uL (3.80-5.40); RDW 15.7 % (11.5-15.5); WBC 7.9 k/uL (3.8-10.6)
[2017-10-15 04:35] LABS: ABG Base Excess 11.3 mmol/L; ABG HCO3 36 mmol/L (21-25); ABG PCO2 61 mmHg (35-45); ABG PH 7.38 (7.35-7.45); ABG PO2 71 mmHg (83-108); ABG TCO2 38 mmol/L (19-24)
[2017-10-15 04:46] LABS: Anion Gap 5 mmol/L; Blood Urea Nitrogen 13 mg/dL (7-17); Carbon Dioxide 36 mmol/L (22-30); Chloride 105 mmol/L (98-107); Glucose 161 mg/dL (74-99); Phosphorus 4.6 mg/dL (2.5-4.5); Sodium 146 mmol/L (137-145)
[2017-10-15] MEDS: MAGNESIUM SULFATE-D5W PMX 1 GM in DEXTROSE/WATER 1 100ML.BAG IVPB SCH ×2 (05:42→06:45)
[2017-10-15 05:52] LABS: Glucose,Whole Blood 174 mg/dL (75-99)
[2017-10-15] MEDS: SODIUM CHLORIDE 0.45% 1,000 ML IV SCH (06:45)
[2017-10-15] MEDS: IPRATROPIUM-ALBUTEROL 3 ML NEB INHALATION SCH ×3 (07:06→20:17)
[2017-10-15] MEDS: BUDESONIDE 1 MG/2 ML NEBU INHALATION SCH ×2 (07:06→20:17)
--- NOTE | 2017-10-15 08:01 | XR ---
EXAMINATION TYPE: XR chest 1V portable DATE OF EXAM: 10/15/2017 COMPARISON: 10/14/2017 INDICATION: Ventilated TECHNIQUE: Single frontal view of the chest is obtained. FINDINGS: The heart size is normal. The pulmonary vasculature is normal. Mild bibasilar infiltrates are present, this has improved. PICC line remains in position. Tracheostomy tube is in the midline. EKG leads overlie the chest. IMPRESSION: 1. Improving bibasilar infiltrates. 2. Lines and catheters discussed above
--- NOTE | 2017-10-15 08:34 | P.PN ---
Subjective Progress Note Date: 10/15/17 Principal diagnosis: This is a 52-year-old obese female with COPD, acute kidney injury secondary to low blood pressure. He was given IV fluids and recovered creatinine came down from 5 to less than 1. She had to be transferred to ICU and was placed on ventilator because of respiratory failure. She has sleep apnea. Currently on the vent very difficult to wean. Her vital signs are unremarkable, output is 4790 and intake is 4057. She is on PEG feeding On exam she is awake alert and responds to questions and follows commands. She is morbidly obese. HEENT exam no JVP neck is supple. Pupils are equal Lungs are clear to auscultation although air entry is less than optimal. She is on the vent with a tracheostomy. Heart sounds unremarkable for any murmur rub gallop Normal sinus rhythm. Abdomen is soft nontender obese Extremity exam reveals in the upper limbs mild edema. Neurologically awake alert response questions. Impression. 1. Acute kidney injury secondary to prerenal and ATN secondary to hypotension nonsteroidals and diuretics. Resolved. 2. Mild hypernatremia secondary to reduce free water intake, improved with sodium 146, peak sodium was 151 on 10/11/2017. 3. Mild degree of acidemia with a pH of 7.38 secondary to respiratory acidosis with a pCO2 of 61 and a compensatory metabolic alkalosis. Bicarbonate though is more than the estimated correction, therefore he has an primary metabolic alkalosis as well. This is secondary to diuretics . 4. Hypomagnesemia improved with replacement. Etiology is diuretics and poor intake 5. Diabetes mellitus with A1c 11.3% 6. When dependent respiratory failure, COPD and obstructive sleep apnea. Recommendation. 1. Maintain current hydration with free water,. 2. Maintain current diuretic regimen, discontinue Diamox as she has acidemia with a pH of 7.38. Objective - Vital Signs Vital signs: Vital Signs Temp 100.1 F H 10/15/17 04:00 Pulse 115 H 10/15/17 07:35 Resp 17 10/15/17 07:00 BP 99/51 10/15/17 05:00 Pulse Ox 94 L 10/15/17 07:00 Intake & Output 10/14/17 10/15/17 10/15/17 18:59 06:59 18:59 Intake Total 6784.875 1031.45 181 Output Total 2520 2270 150 Balance -681.617 -50.55 31 Weight 240.2 kg 235.8 kg Intake: IV 626 366 113 Magnesium Sulfate-D5w Pmx 200 100 100 1 gm In Dextrose/Water 1 100ml.bag @ 100 mls/hr IVPB Q1H [facility] Rx#: [id number] Sodium Chloride 0.45% 1, 330 000 ml @ 125 mls/hr IV . Q8H [facility] Rx#:[id number] Sodium Chloride 0.45% 1, 60 230 10 000 ml @ 20 mls/hr IV . Q24H [facility] Rx#:[id number] pressure bag 36 36 3 Intake, IV Titration 62.383 89.45 Amount Insulin Regular 100 unit 62.383 89.45 In Sodium Chloride 0.9% 100 ml @ Per Protocol IV .Q0M [facility] Rx#:[id number] Tube Feeding 720 924 68 Other 430 840 Output: Urine 2520 2270 150 Other: Voiding Method Indwelling Catheter Indwelling Catheter ABP, PAP, CO, CI - Last Documented Arterial Blood Pressure 126/55 - Labs CBC & Chem 7: 10/15/17 04:20 10/15/17 04:20 Labs: Abnormal Lab Results - Last 24 Hours (Table) 10/14/17 10/14/17 10/14/17 Range/Units 04:20 10:50 12:12 RBC (3.80-5.40) m/uL Hgb (11.4-16.0) gm/dL Hct (34.0-46.0) % MCHC (31.0-37.0) g/dL RDW (11.5-15.5) % Lymphocytes # (1.0-4.8) k/uL ABG pCO2 (35-45) mmHg ABG pO2 (83-108) mmHg ABG HCO3 (21-25) mmol/L ABG Total CO2 (19-24) mmol/L ABG O2 Saturation (94-97) % Sodium (137-145) mmol/L Carbon Dioxide (22-30) mmol/L Glucose (74-99) mg/dL POC Glucose (mg/dL) 182 H 195 H (75-99) mg/dL Osmolality 307 H (280-301) mosm/kg Phosphorus (2.5-4.5) mg/dL 03/02/18 03/02/18 03/02/18 Range/Units 14:14 16:01 18:04 RBC (3.80-5.40) m/uL Hgb (11.4-16.0) gm/dL Hct (34.0-46.0) % MCHC (31.0-37.0) g/dL RDW (11.5-15.5) % Lymphocytes # (1.0-4.8) k/uL ABG pCO2 (35-45) mmHg ABG pO2 (83-108) mmHg ABG HCO3 (21-25) mmol/L ABG Total CO2 (19-24) mmol/L ABG O2 Saturation (94-97) % Sodium (137-145) mmol/L Carbon Dioxide (22-30) mmol/L Glucose (74-99) mg/dL POC Glucose (mg/dL) 187 H 198 H 216 H (75-99) mg/dL Osmolality (280-301) mosm/kg Phosphorus (2.5-4.5) mg/dL 10/14/17 10/14/17 10/14/17 Range/Units 19:26 20:17 22:02 RBC (3.80-5.40) m/uL Hgb (11.4-16.0) gm/dL Hct (34.0-46.0) % MCHC (31.0-37.0) g/dL RDW (11.5-15.5) % Lymphocytes # (1.0-4.8) k/uL ABG pCO2 (35-45) mmHg ABG pO2 (83-108) mmHg ABG HCO3 (21-25) mmol/L ABG Total CO2 (19-24) mmol/L ABG O2 Saturation (94-97) % Sodium (137-145) mmol/L Carbon Dioxide (22-30) mmol/L Glucose (74-99) mg/dL POC Glucose (mg/dL) 182 H 185 H 174 H (75-99) mg/dL Osmolality (280-301) mosm/kg Phosphorus (2.5-4.5) mg/dL 10/14/17 10/15/17 10/15/17 Range/Units 23:58 01:41 04:20 RBC 3.61 L (3.80-5.40) m/uL Hgb 9.6 L (11.4-16.0) gm/dL Hct 33.2 L (34.0-46.0) % MCHC 28.9 L (31.0-37.0) g/dL RDW 15.7 H (11.5-15.5) % Lymphocytes # 0.9 L (1.0-4.8) k/uL ABG pCO2 (35-45) mmHg ABG pO2 (83-108) mmHg ABG HCO3 (21-25) mmol/L ABG Total CO2 (19-24) mmol/L ABG O2 Saturation (94-97) % Sodium (137-145) mmol/L Carbon Dioxide (22-30) mmol/L Glucose (74-99) mg/dL POC Glucose (mg/dL) 184 H 152 H (75-99) mg/dL Osmolality (280-301) mosm/kg Phosphorus (2.5-4.5) mg/dL 10/15/17 10/15/17 10/15/17 Range/Units 04:20 04:23 04:30 RBC (3.80-5.40) m/uL Hgb (11.4-16.0) gm/dL Hct (34.0-46.0) % MCHC (31.0-37.0) g/dL RDW (11.5-15.5) % Lymphocytes # (1.0-4.8) k/uL ABG pCO2 61 H (35-45) mmHg ABG pO2 71 L (83-108) mmHg ABG HCO3 36 H (21-25) mmol/L ABG Total CO2 38 H (19-24) mmol/L ABG O2 Saturation 93.0 L (94-97) % Sodium 146 H (137-145) mmol/L Carbon Dioxide 36 H (22-30) mmol/L Glucose 161 H (74-99) mg/dL POC Glucose (mg/dL) 154 H (75-99) mg/dL Osmolality (280-301) mosm/kg Phosphorus 4.6 H (2.5-4.5) mg/dL 10/15/17 Range/Units 05:51 RBC (3.80-5.40) m/uL Hgb (11.4-16.0) gm/dL Hct (34.0-46.0) % MCHC (31.0-37.0) g/dL RDW (11.5-15.5) % Lymphocytes # (1.0-4.8) k/uL ABG pCO2 (35-45) mmHg ABG pO2 (83-108) mmHg ABG HCO3 (21-25) mmol/L ABG Total CO2 (19-24) mmol/L ABG O2 Saturation (94-97) % Sodium (137-145) mmol/L Carbon Dioxide (22-30) mmol/L Glucose (74-99) mg/dL POC Glucose (mg/dL) 174 H (75-99) mg/dL Osmolality (280-301) mosm/kg Phosphorus (2.5-4.5) mg/dL Microbiology - Last 24 Hours (Table) 10/09/17 02:35 Blood Culture - Final Blood No Growth after 144 hours 10/09/17 02:15 Blood Culture - Final Blood No Growth after 144 hours
[2017-10-15 08:42] LABS: Glucose,Whole Blood 192 mg/dL (75-99)
[2017-10-15] MEDS: PREGABALIN 75 MG CAP PO SCH ×2 (08:45→21:00)
[2017-10-15] MEDS: CHLORHEXIDINE GLUCONATE 15 ML CUP MUCOUS MEM SCH ×2 (08:55→21:00)
[2017-10-15] MEDS: PANTOPRAZOLE 40 MG/10 ML VIAL IV SCH (08:55)
[2017-10-15] MEDS: FUROSEMIDE 10 MG/ML 4 ML VIAL IV SCH ×2 (08:56→21:00)
[2017-10-15] MEDS: ALLOPURINOL 100 MG TAB PO SCH (09:00)
[2017-10-15] MEDS: METOPROLOL TARTRATE 12.5 MG TAB PO SCH ×3 (09:00→21:00)
[2017-10-15] MEDS: ASPIRIN 81 MG PO SCH (09:00)
[2017-10-15] MEDS: acetaZOLAMIDE 250 MG TAB PEG/G-TUBE SCH (09:00)
[2017-10-15] MEDS: medroxyPROGESTERone 10 MG TABLET PEG/G-TUBE SCH ×3 (09:01→21:00)
[2017-10-15] MEDS: GABAPENTIN 300 MG CAP PO SCH ×2 (09:01→21:00)
[2017-10-15] MEDS: FERROUS SULFATE 325 MG TAB PO SCH (09:01)
[2017-10-15 10:03] LABS: Glucose,Whole Blood 192 mg/dL (75-99)
[2017-10-15 12:22] LABS: Glucose,Whole Blood 205 mg/dL (75-99)
--- NOTE | 2017-10-15 12:38 | P.PN ---
Subjective Progress Note Date: 10/15/17 Principal diagnosis: Acute respiratory failure, acute kidney injury, pickwickian syndrome. Progress note dated 10/10/2017 This is a 52-year-old obese female was admitted with a diagnosis of respiratory failure and acute kidney injury. She was admitted on October 07 and was intubated on the . She remains on the ventilator. The patient is initially on BiPAP, but developed tere respiratory failure or car intubation. I think this patient is a patient who would best be suited for early tracheostomy given her multiple episodes of acute respiratory failure her severe COPD her pickwickian syndrome and her sleep apnea syndrome. Currently the patient herself cannot give any additional history as she is now on the ventilator. Vent settings include the assist control mode, rate is 18 tidal volume was 500 FiO2 50% to be dropped down to 40%, PEEP of 5. Blood gases show a PaO2 of 96 a PaCO2 of 59 and a pH of 7.37. She is receiving a saline IV at 1 50 mL an hour norepinephrine at 1 [place] per gram per minute propofol at 50 mics per kilogram per minute insulin drip at 3 units an hour and vital AF with a rate of 45 and a goal of 45. Because of that because of hypernatremia, have to add some free water flushes. Her other medical history includes chronic hypoxemic and hypercapnic respiratory failure secondary to pickwickian syndrome , sleep apnea syndrome, and COPD. In addition, the patient has hypovolemic shock, acute kidney injury secondary to ATN, hypernatremia hypotension insulin- dependent diabetes mellitus COPD morbid obesity sleep apnea syndrome diabetic neuropathy hypertension hyperlipidemia DJD and gout and hypothyroidism. Progress note dated 10/11/2017 This is a 52-year-old obese female who was admitted with a diagnosis of respiratory failure and acute kidney injury. She was admitted on the . She was intubated today later on the . She remains on the ventilator. She' s not made much or any progress. The patient was initially on BiPAP but failed BiPAP. The patient will be evaluated by cardiothoracic surgery for early tracheostomy and PEG tube placement given her many episodes of respiratory failure. In addition to morbid obesity and severe COPD, she has history of pickwickian syndrome and sleep apnea syndrome. Most of the time she is BiPAP dependent. We will do a daily interruption of sedation today and evaluate her for a spontaneous breathing trial. Currently, the patient's on the assist control mode rate of 18, tidal volume 500, FiO2 40%, PEEP of 5. Arterial blood gases show a PaO2 of 68 PaCO2 of 58 and pH 7.39. She's currently on an insulin drip at 4 units an hour saline IV at 100 mL an hour propofol at 50 mics because kilogram per minute and tube feeds with vital AF at 55 with a goal of 55 mL an hour. Progress note dated 10/12/2017 52-year-old obese female admitted with a diagnosis of respiratory failure and acute kidney injury. She was admitted on the . She was intubated later on the . She remains on the ventilator. She has not made any progress despite daily interruption to sedation and spontaneous breathing trials. I did ask thoracic surgery to consider tracheostomy which is apparently planned for tomorrow. The patient was initially on BiPAP failed that. In addition to morbid obesity and severe COPD with multiple episodes of respiratory failure, the patient has a history pickwickian syndrome and sleep apnea syndrome. Most the time when she is here, she is BiPAP dependent. Currently, the patient's ventilator settings are unchanged and include the assist control mode rate of 18 , tidal volume 500, FiO2 40%, PEEP of 5. Blood gases are noted. The patient's on a basic IV and sedation with propofol as well as her tube feeds which is vital AF at 55 with a goal of 55 MLS per hour. Her condition is changed very little since yesterday. Her chest x-ray does show some mild fluid overload and some infiltrates or atelectasis at the lung bases. Today again, we will try a daily eruption of sedation with a spontaneous breathing trial as we do every day. Should she do better today, we will cancel the tracheostomy and PEG tube placement. In addition to the above, she has a history of hypothyroidism, gout , DJD, hyperlipidemia, hypertension, diabetic neuropathy, sleep apnea syndrome, diabetes, and acute tubular necrosis. Progress note dated 10/13/2017 52-year-old obese female admitted with a diagnosis of respiratory failure. She was admitted on the . She was intubated later on the . She remains on the ventilator. She was making no progress. The patient has multiple episodes of admissions to the hospital with hypoxemic and hypercapnic respiratory failure. Because of her lack of progress, the patient underwent a tracheostomy and PEG tube placement yesterday by one of the cardiothoracic surgeons. She seemed to do relatively well today and the plan is to old her sedation and put her on PSV and CPAP. I think she will do relatively well. Her sleep apnea is effectively carried out she has a tracheostomy. I don't know if that will be permanent or not. The patient's currently on the mechanical ventilator. Vent settings include a assist control mode, rate 18 tidal volume 500 FiO2 40% and PEEP of 5. The patient's blood gases show a PaO2 of 65 a PaCO2 of 54 and a pH of 7.42. Her IVs included D5W at 125 mL an hour, propofol at 25 mics per kilogram per minute and an insulin drip at 5 units per hour. Her peak airway pressure is 28 and her minute volume is 10.6. When she is awake, we'll place her on PSV 8 CPAP of 5. Chest x-ray was reviewed. Other than removal of endotracheal tube and placement of the tracheostomy tube, the x-ray looks very similar. Progress note dated 10/14/2017 52-year-old obese female admitted with a diagnosis of respiratory failure. The patient had a tracheostomy and PEG tube done 2 days ago on October 12. The patient was initially admitted on the . She was intubated later on the . She remains on the ventilator was making no progress and hence the tracheostomy and PEG tube placement. She's had multiple episodes of both hypoxemic and hypercapnic respiratory failure. Most of the time she becomes BiPAP dependent. Yesterday she had a daily interruption of sedation with a trial a PSV CPAP and she did okay for about 2 hours. Today, we tried the same but she did very poorly. Put her on PSV 8 CPAP of 5. Today we are going to start her on Provera 20 mg 3 times a day as a respiratory stimulant as well as Diamox 500 mg orally per day. We'll also see if we can get some excess fluid off of her. She is quite edematous and has significant anasarca. We'll add some Lasix 40 mg every 12. In addition, the IV of half normal saline will be switched to KVO. We'll increase free water to 100 mL every 6 hours we will start some insulin at 3 units an hour and she is on vital high protein at 50 mL now with a goal of 59. Current vent settings are the assist control mode rate of 18 tidal volume of 500 FiO2 of 40% and PEEP of 5. Blood gases on that showed a PaO2 of 57 a PaCO2 of 55 and a pH of 7.44. Progress note dated 10/15/2017 The patient is seen again today in follow-up in the intensive care unit. She is currently awake and alert not requiring any sedation. She had her tracheostomy and PEG tube placement done and is currently on the mechanical ventilator, settings of assist control of 18, tidal volume 500, FiO2 45% and a PEEP of 5. Morning blood gases reveal a P O2 of 71, pCO2 61 and a pH of 7.38. She has a 0.45 normal saline at 20 MLS per hour. Insulin drip currently at 6.5 units per hour. She is being nourished with Vital 1.2 at 68 MLS per hour which is her goal. She'll be given another weaning trial and started on a pressure support of 10 and a CPAP of 5. Objective - Vital Signs Vital signs: Vital Signs Temp 99.5 F 10/15/17 08:00 Pulse 100 10/15/17 12:00 Resp 19 10/15/17 12:00 BP 99/51 10/15/17 05:00 Pulse Ox 91 L 10/15/17 12:00 Intake & Output 10/14/17 10/15/17 10/15/17 18:59 06:59 18:59 Intake Total 7960.973 0955.45 1384.284 Output Total 2520 2270 2175 Balance -681.617 -50.55 -790.716 Weight 240.2 kg 235.8 kg Intake: IV 626 366 231 Magnesium Sulfate-D5w Pmx 200 100 100 1 gm In Dextrose/Water 1 100ml.bag @ 100 mls/hr IVPB Q1H [facility] Rx#: [id number] Sodium Chloride 0.45% 1, 330 000 ml @ 125 mls/hr IV . Q8H SAR[facility] Rx#:[id number] Sodium Chloride 0.45% 1, 60 230 110 000 ml @ 20 mls/hr IV . Q24H [facility] Rx#:[id number] pressure bag 36 36 21 Intake, IV Titration 62.383 89.45 47.284 Amount Insulin Regular 100 unit 62.383 89.45 29.583 In Sodium Chloride 0.9% 100 ml @ Per Protocol IV .Q0M [facility] Rx#:[id number] Insulin Regular 100 unit 17.701 In Sodium Chloride 0.9% 100 ml @ Per Protocol IV .Q0M [facility] Rx#:[id number] Tube Feeding 720 924 476 Other 430 840 630 Output: Urine 2520 2270 2175 Other: Voiding Method Indwelling Catheter Indwelling Catheter Indwelling Catheter ABP, PAP, CO, CI - Last Documented Arterial Blood Pressure 118/57 - Exam No acute distress, tracheostomy tube in place. The patient is awake and following simple commands.. HEENT examination is grossly unremarkable. Mucous membranes are moist. No oral lesions. Neck supple. Full range of motion. No adenopathy thyromegaly or neck vein distention. Cardiovascular examination reveals regular rhythm rate. S1-S2 normal. No S3 or S4. No discernible murmur noted. Heart sounds are distant. Lungs reveal coarse bilateral breath sounds. Breath sounds are diminished. No wheezes or rhonchi. Abdomen obese, and bowel sounds are noted. No masses or tenderness appreciated. PEG tube noted. Extremities are intact. Slight edema noted. Skin is without rash or lesion. Neurologic examination without noted focal deficits. - Labs CBC & Chem 7: 10/15/17 04:20 10/15/17 04:20 Labs: Abnormal Lab Results - Last 24 Hours (Table) 10/14/17 10/14/17 10/14/17 Range/Units 14:14 16:01 18:04 RBC (3.80-5.40) m/uL Hgb (11.4-16.0) gm/dL Hct (34.0-46.0) % MCHC (31.0-37.0) g/dL RDW (11.5-15.5) % Lymphocytes # (1.0-4.8) k/uL ABG pCO2 (35-45) mmHg ABG pO2 (83-108) mmHg ABG HCO3 (21-25) mmol/L ABG Total CO2 (19-24) mmol/L ABG O2 Saturation (94-97) % Sodium (137-145) mmol/L Carbon Dioxide (22-30) mmol/L Glucose (74-99) mg/dL POC Glucose (mg/dL) 187 H 198 H 216 H (75-99) mg/dL Phosphorus (2.5-4.5) mg/dL 10/14/17 10/14/17 10/14/17 Range/Units 19:26 20:17 22:02 RBC (3.80-5.40) m/uL Hgb (11.4-16.0) gm/dL Hct (34.0-46.0) % MCHC (31.0-37.0) g/dL RDW (11.5-15.5) % Lymphocytes # (1.0-4.8) k/uL ABG pCO2 (35-45) mmHg ABG pO2 (83-108) mmHg ABG HCO3 (21-25) mmol/L ABG Total CO2 (19-24) mmol/L ABG O2 Saturation (94-97) % Sodium (137-145) mmol/L Carbon Dioxide (22-30) mmol/L Glucose (74-99) mg/dL POC Glucose (mg/dL) 182 H 185 H 174 H (75-99) mg/dL Phosphorus (2.5-4.5) mg/dL 10/14/17 10/15/17 10/15/17 Range/Units 23:58 01:41 04:20 RBC 3.61 L (3.80-5.40) m/uL Hgb 9.6 L (11.4-16.0) gm/dL Hct 33.2 L (34.0-46.0) % MCHC 28.9 L (31.0-37.0) g/dL RDW 15.7 H (11.5-15.5) % Lymphocytes # 0.9 L (1.0-4.8) k/uL ABG pCO2 (35-45) mmHg ABG pO2 (83-108) mmHg ABG HCO3 (21-25) mmol/L ABG Total CO2 (19-24) mmol/L ABG O2 Saturation (94-97) % Sodium (137-145) mmol/L Carbon Dioxide (22-30) mmol/L Glucose (74-99) mg/dL POC Glucose (mg/dL) 184 H 152 H (75-99) mg/dL Phosphorus (2.5-4.5) mg/dL 10/15/17 10/15/17 10/15/17 Range/Units 04:20 04:23 04:30 RBC (3.80-5.40) m/uL Hgb (11.4-16.0) gm/dL Hct (34.0-46.0) % MCHC (31.0-37.0) g/dL RDW (11.5-15.5) % Lymphocytes # (1.0-4.8) k/uL ABG pCO2 61 H (35-45) mmHg ABG pO2 71 L (83-108) mmHg ABG HCO3 36 H (21-25) mmol/L ABG Total CO2 38 H (19-24) mmol/L ABG O2 Saturation 93.0 L (94-97) % Sodium 146 H (137-145) mmol/L Carbon Dioxide 36 H (22-30) mmol/L Glucose 161 H (74-99) mg/dL POC Glucose (mg/dL) 154 H (75-99) mg/dL Phosphorus 4.6 H (2.5-4.5) mg/dL 10/15/17 10/15/17 10/15/17 Range/Units 05:51 08:39 10:01 RBC (3.80-5.40) m/uL Hgb (11.4-16.0) gm/dL Hct (34.0-46.0) % MCHC (31.0-37.0) g/dL RDW (11.5-15.5) % Lymphocytes # (1.0-4.8) k/uL ABG pCO2 (35-45) mmHg ABG pO2 (83-108) mmHg ABG HCO3 (21-25) mmol/L ABG Total CO2 (19-24) mmol/L ABG O2 Saturation (94-97) % Sodium (137-145) mmol/L Carbon Dioxide (22-30) mmol/L Glucose (74-99) mg/dL POC Glucose (mg/dL) 174 H 192 H 192 H (75-99) mg/dL Phosphorus (2.5-4.5) mg/dL 10/15/17 Range/Units 12:19 RBC (3.80-5.40) m/uL Hgb (11.4-16.0) gm/dL Hct (34.0-46.0) % MCHC (31.0-37.0) g/dL RDW (11.5-15.5) % Lymphocytes # (1.0-4.8) k/uL ABG pCO2 (35-45) mmHg ABG pO2 (83-108) mmHg ABG HCO3 (21-25) mmol/L ABG Total CO2 (19-24) mmol/L ABG O2 Saturation (94-97) % Sodium (137-145) mmol/L Carbon Dioxide (22-30) mmol/L Glucose (74-99) mg/dL POC Glucose (mg/dL) 205 H (75-99) mg/dL Phosphorus (2.5-4.5) mg/dL Microbiology - Last 24 Hours (Table) 10/09/17 02:35 Blood Culture - Final Blood No Growth after 144 hours 10/09/17 02:15 Blood Culture - Final Blood No Growth after 144 hours Assessment and Plan Assessment: Assessment: Acute on chronic hypoxemic and hypercapnic respiratory failure secondary to COPD morbid obesity sleep apnea syndrome and pickwickian syndrome Hypovolemic shock Failure to wean from mechanical ventilation despite daily interruption of sedation and spontaneous breathing trials, status post tracheostomy and PEG tube placement on 10/12/2017 Acute kidney injury, secondary to acute tubular necrosis Hypernatremia Hypotension Diabetes mellitus COPD Sleep apnea syndrome Pickwickian syndrome, secondary to morbid obesity. Diabetic neuropathy Hypertension Hyperlipidemia DJD Gout Hypothyroidism Plan: The patient was seen and evaluated by Dr. Laurent. We'll continue with her weaning trials. We'll continue with her current medications. Consult has been placed for select specialty. We'll continue to monitor her here closely in the intensive care unit. We'll continue to follow and make further recommendations based on her clinical status. Critical care time 38 minutes. I, the cosigning physician, performed a history & physical examination of the patient. Lungs sounds have few scattered rhonchi, crackles in the posterior bases. Maintaining good O2 saturations in the 90s on 45% FiO2. I discussed the assessment and plan of care with my nurse practitioner, Allison Cast. I attest to the above note as dictated by her. Time with Patient: Greater than 30
[2017-10-15 14:01] LABS: Glucose,Whole Blood 197 mg/dL (75-99)
[2017-10-15 16:08] LABS: Glucose,Whole Blood 195 mg/dL (75-99)
[2017-10-15 18:15] LABS: Glucose,Whole Blood 177 mg/dL (75-99)
--- NOTE | 2017-10-15 18:18 | PN ---
PROGRESS NOTE DATE OF SERVICE: 10/15/2017 This 52-year-old woman was admitted with acute renal failure, also had acute respiratory failure. The patient has tracheostomy and PEG tube. Patient is being closely monitored at this time. Dr. Laurent is following the patient closely. Patient is apparently tolerating her CPAP trials. Sensorium is improved. PAST MEDICAL HISTORY: Reviewed. REVIEW OF SYSTEMS: Could not be taken. The patient is on mechanical ventilation. CURRENT MEDICATIONS: 1. Tylenol 650 every 6 hours p.r.n. 2. Diamox 500 mg per PEG daily. 3. DuoNeb t.i.d. 4. Zyloprim 200 mg daily. 5. Aspirin 81 mg daily. 6. Pulmicort 1 mg b.i.d. 7. Rocephin 1 g q.h.s. 8. Peridex b.i.d. 9. Lexapro 10 mg q.h.s. 10.Iron sulfate 320 mg daily. 11.Lasix 40 mg IV b.i.d. 12.Neurontin 300 mg b.i.d. 13.Heparin 5 subcu q.i.d. 14.Dilaudid 2 mg q.2h p.r.n. 15.Insulin to scale. 16.Provera. 17.Lopressor. 18.P.r.n. medications. 19.Lyrica. PHYSICAL EXAM: Patient is alert, oriented x3. Pulse is 101, blood pressure 119/59, respirations 20, temperature 99.4, pulse ox 92%. Mechanical settings are noted. Patient is tolerating CPAP well as mentioned earlier. HEENT: Conjunctivae normal. Oral mucosa moist. NECK: No jugular venous distention. CARDIOVASCULAR: S1, S2 muffled. RESPIRATORY: Breath sounds diminished in the bases. Bilateral scattered rhonchi and expiratory wheezing and crackles. ABDOMEN: Soft, obese, status post PEG tube placement. LEGS: No edema. No swelling. NERVOUS SYSTEM: The patient is mechanically ventilated, sedated, diffuse weakness. LABS: WBC 7.3, hemoglobin is 10.3. ABGs noted. Glucose 195. ASSESSMENT: 1. Shortness of breath, possibly multifactorial with chronic obstructive pulmonary disease acute exacerbation as well as congestive heart failure acute exacerbation as well as acute diastolic congestive heart failure with acute on chronic hypoxic hypercarbic respiratory failure on mechanical ventilation by intubation. 2. Acute renal failure, possibly prerenal renal failure with acute tubular necrosis, multifactorial, present on admission. 3. Status post percutaneous endoscopic gastrostomy tube placement and tracheostomy. 4. Acute respiratory distress with mechanical ventilation. 5. Hyponatremia. 6. Morbid obesity with body mass index of 56.6 and obesity hypoventilation syndrome. 7. Chronic obstructive pulmonary disease. 8. History of congestive heart failure. 9. Diabetes mellitus type 2. 10.Hypertension. 11.Hyperlipidemia. 12.History of degenerative joint disease. 13.History of pneumonia. 14.Sleep apnea. 15.History of gout. 16.History of peripheral neuropathy. RECOMMENDATIONS AND DISCUSSION: Recommend to continue current medical management and continue symptomatic treatment. Otherwise, at this time I would recommend continuing with bronchodilators, continuing with diuretics, monitor fluid-electrolyte balance closely. Further weaning per Dr. Laurent. PT/OT evaluation once the patient is weaned off. Guarded prognosis because of multiple complex medical issues. Further recommendations to follow. MMODL / IJN: [id number] /
[2017-10-15 20:52] LABS: Glucose,Whole Blood 148 mg/dL (75-99)
[2017-10-15] MEDS: ESCITALOPRAM 10 MG TAB PO SCH (21:00)
[2017-10-15] MEDS: cefTRIAXone IN SWFI 1,000 MG/10 ML SYRINGE IVP SCH (21:00)
[2017-10-15 22:24] LABS: Glucose,Whole Blood 198 mg/dL (75-99)
[2017-10-15 23:14] LABS: Glucose,Whole Blood 185 mg/dL (75-99)
[2017-10-16 00:07] LABS: Glucose,Whole Blood 165 mg/dL (75-99)
[2017-10-16 01:09] LABS: Glucose,Whole Blood 189 mg/dL (75-99)
[2017-10-16] MEDS: INSULIN REGULAR 100 UNIT in SODIUM CHLORIDE 0.9% 100 ML IV SCH ×2 (01:09→13:35)
[2017-10-16] MEDS: MORPHINE SULFATE 4 MG/ML SYRINGE IVP PRN ×3 (01:33→15:51)
[2017-10-16 01:53] LABS: Glucose,Whole Blood 196 mg/dL (75-99)
[2017-10-16 03:14] LABS: Glucose,Whole Blood 184 mg/dL (75-99)
[2017-10-16 04:07] LABS: Glucose,Whole Blood 192 mg/dL (75-99)
[2017-10-16 04:44] LABS: Anion Gap 7 mmol/L; Blood Urea Nitrogen 15 mg/dL (7-17); Calcium 8.5 mg/dL (8.4-10.2); Carbon Dioxide 34 mmol/L (22-30); Chloride 104 mmol/L (98-107); Glucose 173 mg/dL (74-99); Phosphorus 4.6 mg/dL (2.5-4.5); Potassium 3.8 mmol/L (3.5-5.1); Sodium 145 mmol/L (137-145)
[2017-10-16 04:49] LABS: Basophils % (A) 0 %; Eosinophils # (A) 0.2 k/uL (0-0.7); Eosinophils % (A) 3 %; HCT 30.7 % (34.0-46.0); HGB 8.8 gm/dL (11.4-16.0); Hypochromasia Marked; Lymphocytes # (A) 0.7 k/uL (1.0-4.8); Lymphocytes % (A) 12 %; MCH 26.8 pg (25.0-35.0); MCHC 28.8 g/dL (31.0-37.0); MCV 93.3 fL (80.0-100.0); Mean Platelet Volume 8.5; Monocytes # (A) 0.3 k/uL (0-1.0); Monocytes % (A) 6 %; Neutrophils # (A) 4.5 k/uL (1.3-7.7); Neutrophils % (A) 78 %; Platelet Count 235 k/uL (150-450); RBC 3.29 m/uL (3.80-5.40); RDW 15.7 % (11.5-15.5); WBC 5.8 k/uL (3.8-10.6)
[2017-10-16 05:07] LABS: Glucose,Whole Blood 162 mg/dL (75-99)
[2017-10-16 05:33] LABS: ABG Base Excess 10.9 mmol/L; ABG HCO3 37 mmol/L (21-25); ABG Oxygen Saturation 92.3 % (94-97); ABG PH 7.33 (7.35-7.45); ABG PO2 71 mmHg (83-108); ABG TCO2 39 mmol/L (19-24)
[2017-10-16 05:34] LABS: ABG PCO2 71 mmHg (35-45)
[2017-10-16] MEDS: MAGNESIUM SULFATE-D5W PMX 1 GM in DEXTROSE/WATER 1 100ML.BAG IVPB SCH ×2 (05:47→07:00)
[2017-10-16] MEDS ORDERED: POTASSIUM BICARBONATE/CIT AC 20 MEQ TABLET.EFF NG-TUBE SCH (06:00)
[2017-10-16 06:08] LABS: Glucose,Whole Blood 163 mg/dL (75-99)
[2017-10-16 06:58] LABS: Glucose,Whole Blood 159 mg/dL (75-99)
--- NOTE | 2017-10-16 07:18 | XR ---
EXAMINATION TYPE: XR chest 1V portable DATE OF EXAM: 10/16/2017 COMPARISON: NONE INDICATION: Vented TECHNIQUE: Single frontal view of the chest is obtained. FINDINGS: The heart size is mildly prominent. The pulmonary vasculature is normal. The lungs are clear. Tracheostomy tube is in the midline. EKG leads overlie the chest IMPRESSION: 1. Tracheostomy tube stable in position. 2. Mild cardiomegaly
[2017-10-16] MEDS: IPRATROPIUM-ALBUTEROL 3 ML NEB INHALATION SCH ×5 (07:48→23:39)
[2017-10-16] MEDS: BUDESONIDE 1 MG/2 ML NEBU INHALATION SCH ×2 (07:48→19:24)
[2017-10-16 08:19] LABS: Glucose,Whole Blood 163 mg/dL (75-99)
[2017-10-16] MEDS: METOPROLOL TARTRATE 12.5 MG TAB PO SCH ×3 (08:19→21:28)
[2017-10-16] MEDS: medroxyPROGESTERone 10 MG TABLET PEG/G-TUBE SCH ×3 (08:19→21:28)
[2017-10-16] MEDS: CHLORHEXIDINE GLUCONATE 15 ML CUP MUCOUS MEM SCH ×2 (08:19→21:51)
[2017-10-16] MEDS: FERROUS SULFATE 325 MG TAB PO SCH (08:19)
[2017-10-16] MEDS: ASPIRIN 81 MG PO SCH (08:19)
[2017-10-16] MEDS: FUROSEMIDE 10 MG/ML 4 ML VIAL IV SCH ×2 (08:19→21:27)
[2017-10-16] MEDS: PANTOPRAZOLE 40 MG/10 ML VIAL IV SCH (08:19)
[2017-10-16] MEDS: HEPARIN SODIUM,PORCINE 5,000 UNIT/ML 1 ML VIAL SQ SCH ×2 (08:19→15:53)
[2017-10-16] MEDS: ALLOPURINOL 100 MG TAB PO SCH (08:19)
[2017-10-16] MEDS: GABAPENTIN 300 MG CAP PO SCH ×2 (08:19→21:28)
[2017-10-16] MEDS: acetaZOLAMIDE 250 MG TAB PEG/G-TUBE SCH (08:19)
[2017-10-16] MEDS: PREGABALIN 75 MG CAP PO SCH ×2 (08:27→21:27)
--- NOTE | 2017-10-16 08:45 | P.PN ---
Subjective Progress Note Date: 10/16/17 Principal diagnosis: This is a 52-year-old obese female with COPD, acute kidney injury secondary to low blood pressure. She was given IV fluids and recovered creatinine came down from 5 to less than 1. She had to be transferred to ICU and was placed on ventilator because of respiratory failure. She has sleep apnea. She is being slowly weaned. Her vital signs are unremarkable, she has a tracheostomy. On exam she is awake alert and responds to questions and follows commands. She is morbidly obese. Objective - Vital Signs Vital signs: Vital Signs Temp 99.6 F 10/16/17 08:00 Pulse 108 H 10/16/17 08:00 Resp 17 10/16/17 08:00 BP 103/53 10/16/17 08:00 Pulse Ox 94 L 10/16/17 08:00 Intake & Output 10/15/17 10/16/17 10/16/17 18:59 06:59 18:59 Intake Total 2409.447 2230.397 357.208 Output Total 2955 1945 185 Balance -545.553 285.397 172.208 Weight 232.4 kg Intake: IV 369 366 136 Magnesium Sulfate-D5w Pmx 100 1 gm In Dextrose/Water 1 100ml.bag @ 100 mls/hr IVPB Q1H SAR[facility] Rx#: [id number] Magnesium Sulfate-D5w Pmx 100 100 1 gm In Dextrose/Water 1 100ml.bag @ 100 mls/hr IVPB Q1H SARAH Rx#: [id number] Sodium Chloride 0.45% 1, 230 230 30 000 ml @ 20 mls/hr IV . Q24H [facility] Rx#:[id number] pressure bag 39 36 6 Intake, IV Titration 90.447 84.397 25.208 Amount Insulin Regular 100 unit 29.583 In Sodium Chloride 0.9% 100 ml @ Per Protocol IV .Q0M SARAH Rx#:[id number] Insulin Regular 100 unit 60.864 84.397 25.208 In Sodium Chloride 0.9% 100 ml @ Per Protocol IV .Q0M SARAH Rx#:[id number] Tube Feeding 1020 1020 136 Other 930 760 60 Output: Urine 2955 1945 185 Other: Voiding Method Indwelling Catheter Indwelling Catheter ABP, PAP, CO, CI - Last Documented Arterial Blood Pressure 121/96 HEENT exam no JVP neck is supple. Pupils are equal Lungs are clear to auscultation although air entry is less than optimal. She is on the vent with a tracheostomy. Heart sounds unremarkable for any murmur rub gallop Normal sinus rhythm. Abdomen is soft nontender obese Extremity exam reveals in the upper limbs mild edema. Neurologically awake alert response questions. I - Labs CBC & Chem 7: 10/16/17 04:10 10/16/17 04:10 Labs: Abnormal Lab Results - Last 24 Hours (Table) 10/15/17 10/15/17 10/15/17 Range/Units 08:39 10:01 12:19 RBC (3.80-5.40) m/uL Hgb (11.4-16.0) gm/dL Hct (34.0-46.0) % MCHC (31.0-37.0) g/dL RDW (11.5-15.5) % Lymphocytes # (1.0-4.8) k/uL ABG pH (7.35-7.45) ABG pCO2 (35-45) mmHg ABG pO2 (83-108) mmHg ABG HCO3 (21-25) mmol/L ABG Total CO2 (19-24) mmol/L ABG O2 Saturation (94-97) % Carbon Dioxide (22-30) mmol/L Glucose (74-99) mg/dL POC Glucose (mg/dL) 192 H 192 H 205 H (75-99) mg/dL Phosphorus (2.5-4.5) mg/dL 10/15/17 10/15/17 10/15/17 Range/Units 13:58 16:06 18:14 RBC (3.80-5.40) m/uL Hgb (11.4-16.0) gm/dL Hct (34.0-46.0) % MCHC (31.0-37.0) g/dL RDW (11.5-15.5) % Lymphocytes # (1.0-4.8) k/uL ABG pH (7.35-7.45) ABG pCO2 (35-45) mmHg ABG pO2 (83-108) mmHg ABG HCO3 (21-25) mmol/L ABG Total CO2 (19-24) mmol/L ABG O2 Saturation (94-97) % Carbon Dioxide (22-30) mmol/L Glucose (74-99) mg/dL POC Glucose (mg/dL) 197 H 195 H 177 H (75-99) mg/dL Phosphorus (2.5-4.5) mg/dL 10/15/17 10/15/17 10/15/17 Range/Units 20:51 22:22 23:12 RBC (3.80-5.40) m/uL Hgb (11.4-16.0) gm/dL Hct (34.0-46.0) % MCHC (31.0-37.0) g/dL RDW (11.5-15.5) % Lymphocytes # (1.0-4.8) k/uL ABG pH (7.35-7.45) ABG pCO2 (35-45) mmHg ABG pO2 (83-108) mmHg ABG HCO3 (21-25) mmol/L ABG Total CO2 (19-24) mmol/L ABG O2 Saturation (94-97) % Carbon Dioxide (22-30) mmol/L Glucose (74-99) mg/dL POC Glucose (mg/dL) 148 H 198 H 185 H (75-99) mg/dL Phosphorus (2.5-4.5) mg/dL 10/16/17 10/16/17 10/16/17 Range/Units 00:05 01:07 01:51 RBC (3.80-5.40) m/uL Hgb (11.4-16.0) gm/dL Hct (34.0-46.0) % MCHC (31.0-37.0) g/dL RDW (11.5-15.5) % Lymphocytes # (1.0-4.8) k/uL ABG pH (7.35-7.45) ABG pCO2 (35-45) mmHg ABG pO2 (83-108) mmHg ABG HCO3 (21-25) mmol/L ABG Total CO2 (19-24) mmol/L ABG O2 Saturation (94-97) % Carbon Dioxide (22-30) mmol/L Glucose (74-99) mg/dL POC Glucose (mg/dL) 165 H 189 H 196 H (75-99) mg/dL Phosphorus (2.5-4.5) mg/dL 10/16/17 10/16/17 10/16/17 Range/Units 03:12 04:04 04:10 RBC 3.29 L (3.80-5.40) m/uL Hgb 8.8 L (11.4-16.0) gm/dL Hct 30.7 L (34.0-46.0) % MCHC 28.8 L (31.0-37.0) g/dL RDW 15.7 H (11.5-15.5) % Lymphocytes # 0.7 L (1.0-4.8) k/uL ABG pH (7.35-7.45) ABG pCO2 (35-45) mmHg ABG pO2 (83-108) mmHg ABG HCO3 (21-25) mmol/L ABG Total CO2 (19-24) mmol/L ABG O2 Saturation (94-97) % Carbon Dioxide (22-30) mmol/L Glucose (74-99) mg/dL POC Glucose (mg/dL) 184 H 192 H (75-99) mg/dL Phosphorus (2.5-4.5) mg/dL 10/16/17 10/16/17 10/16/17 Range/Units 04:10 05:00 05:30 RBC (3.80-5.40) m/uL Hgb (11.4-16.0) gm/dL Hct (34.0-46.0) % MCHC (31.0-37.0) g/dL RDW (11.5-15.5) % Lymphocytes # (1.0-4.8) k/uL ABG pH 7.33 L (7.35-7.45) ABG pCO2 71 H* (35-45) mmHg ABG pO2 71 L (83-108) mmHg ABG HCO3 37 H (21-25) mmol/L ABG Total CO2 39 H (19-24) mmol/L ABG O2 Saturation 92.3 L (94-97) % Carbon Dioxide 34 H (22-30) mmol/L Glucose 173 H (74-99) mg/dL POC Glucose (mg/dL) 162 H (75-99) mg/dL Phosphorus 4.6 H (2.5-4.5) mg/dL 10/16/17 10/16/17 10/16/17 Range/Units 06:06 06:56 08:17 RBC (3.80-5.40) m/uL Hgb (11.4-16.0) gm/dL Hct (34.0-46.0) % MCHC (31.0-37.0) g/dL RDW (11.5-15.5) % Lymphocytes # (1.0-4.8) k/uL ABG pH (7.35-7.45) ABG pCO2 (35-45) mmHg ABG pO2 (83-108) mmHg ABG HCO3 (21-25) mmol/L ABG Total CO2 (19-24) mmol/L ABG O2 Saturation (94-97) % Carbon Dioxide (22-30) mmol/L Glucose (74-99) mg/dL POC Glucose (mg/dL) 163 H 159 H 163 H (75-99) mg/dL Phosphorus (2.5-4.5) mg/dL Microbiology - Last 24 Hours (Table) 10/09/17 02:35 Blood Culture - Final Blood No Growth after 144 hours 10/09/17 02:15 Blood Culture - Final Blood No Growth after 144 hours Assessment and Plan Assessment: mpression. 1. Acute kidney injury secondary to prerenal and ATN secondary to hypotension nonsteroidals and diuretics. Resolved. 2. Mild hypernatremia secondary to reduce free water intake, improved with free water intake of 300 mL every 6 hours, improved sodium 145, peak sodium was 151 on 10/11/2017. 3. Mild degree of acidemia with a pH of 7.33 secondary to respiratory acidosis with a pCO2 of 71 and a compensatory metabolic alkalosis. 4. Hypomagnesemia improved with replacement. Etiology is diuretics and poor intake 5. Diabetes mellitus with A1c 11.3% 6. Ventdependent respiratory failure, COPD and obstructive sleep apnea. Recommendation. 1. Maintain current hydration with free water,. 2. Maintain current diuretic regimen, 3. We will sign off please feel free to call us if necessary.
[2017-10-16 10:14] LABS: Glucose,Whole Blood 165 mg/dL (75-99)
[2017-10-16] MEDS: SODIUM CHLORIDE 0.45% 1,000 ML IV SCH (10:14)
--- NOTE | 2017-10-16 10:26 | P.PN ---
Subjective Progress Note Date: 10/16/17 Principal diagnosis: Acute respiratory failure, acute kidney injury, pickwickian syndrome. Progress note dated 10/10/2017 This is a 52-year-old obese female was admitted with a diagnosis of respiratory failure and acute kidney injury. She was admitted on October 07 and was intubated on the . She remains on the ventilator. The patient is initially on BiPAP, but developed tere respiratory failure or car intubation. I think this patient is a patient who would best be suited for early tracheostomy given her multiple episodes of acute respiratory failure her severe COPD her pickwickian syndrome and her sleep apnea syndrome. Currently the patient herself cannot give any additional history as she is now on the ventilator. Vent settings include the assist control mode, rate is 18 tidal volume was 500 FiO2 50% to be dropped down to 40%, PEEP of 5. Blood gases show a PaO2 of 96 a PaCO2 of 59 and a pH of 7.37. She is receiving a saline IV at 1 50 mL an hour norepinephrine at 1 [place] per gram per minute propofol at 50 mics per kilogram per minute insulin drip at 3 units an hour and vital AF with a rate of 45 and a goal of 45. Because of that because of hypernatremia, have to add some free water flushes. Her other medical history includes chronic hypoxemic and hypercapnic respiratory failure secondary to pickwickian syndrome , sleep apnea syndrome, and COPD. In addition, the patient has hypovolemic shock, acute kidney injury secondary to ATN, hypernatremia hypotension insulin- dependent diabetes mellitus COPD morbid obesity sleep apnea syndrome diabetic neuropathy hypertension hyperlipidemia DJD and gout and hypothyroidism. Progress note dated 10/11/2017 This is a 52-year-old obese female who was admitted with a diagnosis of respiratory failure and acute kidney injury. She was admitted on the . She was intubated today later on the . She remains on the ventilator. She' s not made much or any progress. The patient was initially on BiPAP but failed BiPAP. The patient will be evaluated by cardiothoracic surgery for early tracheostomy and PEG tube placement given her many episodes of respiratory failure. In addition to morbid obesity and severe COPD, she has history of pickwickian syndrome and sleep apnea syndrome. Most of the time she is BiPAP dependent. We will do a daily interruption of sedation today and evaluate her for a spontaneous breathing trial. Currently, the patient's on the assist control mode rate of 18, tidal volume 500, FiO2 40%, PEEP of 5. Arterial blood gases show a PaO2 of 68 PaCO2 of 58 and pH 7.39. She's currently on an insulin drip at 4 units an hour saline IV at 100 mL an hour propofol at 50 mics because kilogram per minute and tube feeds with vital AF at 55 with a goal of 55 mL an hour. Progress note dated 10/12/2017 52-year-old obese female admitted with a diagnosis of respiratory failure and acute kidney injury. She was admitted on the . She was intubated later on the . She remains on the ventilator. She has not made any progress despite daily interruption to sedation and spontaneous breathing trials. I did ask thoracic surgery to consider tracheostomy which is apparently planned for tomorrow. The patient was initially on BiPAP failed that. In addition to morbid obesity and severe COPD with multiple episodes of respiratory failure, the patient has a history pickwickian syndrome and sleep apnea syndrome. Most the time when she is here, she is BiPAP dependent. Currently, the patient's ventilator settings are unchanged and include the assist control mode rate of 18 , tidal volume 500, FiO2 40%, PEEP of 5. Blood gases are noted. The patient's on a basic IV and sedation with propofol as well as her tube feeds which is vital AF at 55 with a goal of 55 MLS per hour. Her condition is changed very little since yesterday. Her chest x-ray does show some mild fluid overload and some infiltrates or atelectasis at the lung bases. Today again, we will try a daily eruption of sedation with a spontaneous breathing trial as we do every day. Should she do better today, we will cancel the tracheostomy and PEG tube placement. In addition to the above, she has a history of hypothyroidism, gout , DJD, hyperlipidemia, hypertension, diabetic neuropathy, sleep apnea syndrome, diabetes, and acute tubular necrosis. Progress note dated 10/13/2017 52-year-old obese female admitted with a diagnosis of respiratory failure. She was admitted on the . She was intubated later on the . She remains on the ventilator. She was making no progress. The patient has multiple episodes of admissions to the hospital with hypoxemic and hypercapnic respiratory failure. Because of her lack of progress, the patient underwent a tracheostomy and PEG tube placement yesterday by one of the cardiothoracic surgeons. She seemed to do relatively well today and the plan is to old her sedation and put her on PSV and CPAP. I think she will do relatively well. Her sleep apnea is effectively carried out she has a tracheostomy. I don't know if that will be permanent or not. The patient's currently on the mechanical ventilator. Vent settings include a assist control mode, rate 18 tidal volume 500 FiO2 40% and PEEP of 5. The patient's blood gases show a PaO2 of 65 a PaCO2 of 54 and a pH of 7.42. Her IVs included D5W at 125 mL an hour, propofol at 25 mics per kilogram per minute and an insulin drip at 5 units per hour. Her peak airway pressure is 28 and her minute volume is 10.6. When she is awake, we'll place her on PSV 8 CPAP of 5. Chest x-ray was reviewed. Other than removal of endotracheal tube and placement of the tracheostomy tube, the x-ray looks very similar. Progress note dated 10/14/2017 52-year-old obese female admitted with a diagnosis of respiratory failure. The patient had a tracheostomy and PEG tube done 2 days ago on October 12. The patient was initially admitted on the . She was intubated later on the . She remains on the ventilator was making no progress and hence the tracheostomy and PEG tube placement. She's had multiple episodes of both hypoxemic and hypercapnic respiratory failure. Most of the time she becomes BiPAP dependent. Yesterday she had a daily interruption of sedation with a trial a PSV CPAP and she did okay for about 2 hours. Today, we tried the same but she did very poorly. Put her on PSV 8 CPAP of 5. Today we are going to start her on Provera 20 mg 3 times a day as a respiratory stimulant as well as Diamox 500 mg orally per day. We'll also see if we can get some excess fluid off of her. She is quite edematous and has significant anasarca. We'll add some Lasix 40 mg every 12. In addition, the IV of half normal saline will be switched to KVO. We'll increase free water to 100 mL every 6 hours we will start some insulin at 3 units an hour and she is on vital high protein at 50 mL now with a goal of 59. Current vent settings are the assist control mode rate of 18 tidal volume of 500 FiO2 of 40% and PEEP of 5. Blood gases on that showed a PaO2 of 57 a PaCO2 of 55 and a pH of 7.44. Progress note dated 10/15/2017 The patient is seen again today in follow-up in the intensive care unit. She is currently awake and alert not requiring any sedation. She had her tracheostomy and PEG tube placement done and is currently on the mechanical ventilator, settings of assist control of 18, tidal volume 500, FiO2 45% and a PEEP of 5. Morning blood gases reveal a P O2 of 71, pCO2 61 and a pH of 7.38. She has a 0.45 normal saline at 20 MLS per hour. Insulin drip currently at 6.5 units per hour. She is being nourished with Vital 1.2 at 68 MLS per hour which is her goal. She'll be given another weaning trial and started on a pressure support of 10 and a CPAP of 5. Progress note dated 10/16/2017 The patient is seen again today in follow-up in the intensive care unit. She remains on the mechanical ventilator with current settings of assist control of 18, tidal volume 500, FiO2 45% and a PEEP of 5. Morning blood gases reveal a pO2 of 70, pCO2 70, pH 7.32. She was more hypercapnic today based on the fact that she was on a pressure support of 10 and a PEEP of 5 through most of the night. Chest x-ray reveals basilar infiltrate/atelectasis. She remains on ceftriaxone. She remains off sedation. She is awake and alert in no acute distress. She is currently on a 0.45% normal saline at 20 MLS per hour, insulin drip at 8 units per hour. She is being nourished with Vital 1.2 at 68 MLS per hour which is his goal. Objective - Vital Signs Vital signs: Vital Signs Temp 99.6 F 10/16/17 08:00 Pulse 98 10/16/17 10:00 Resp 19 10/16/17 10:00 BP 103/53 10/16/17 08:00 Pulse Ox 91 L 10/16/17 10:00 Intake & Output 10/15/17 10/16/17 10/16/17 18:59 06:59 18:59 Intake Total 2409.447 2230.397 904.208 Output Total 2955 1945 860 Balance -545.553 285.397 44.208 Weight 232.4 kg Intake: IV 369 366 479 Magnesium Sulfate-D5w Pmx 100 1 gm In Dextrose/Water 1 100ml.bag @ 100 mls/hr IVPB Q1H SAR[facility] Rx#: [id number] Magnesium Sulfate-D5w Pmx 100 100 1 gm In Dextrose/Water 1 100ml.bag @ 100 mls/hr IVPB Q1H SAR[facility] Rx#: [id number] Sodium Chloride 0.45% 1, 230 230 50 000 ml @ 20 mls/hr IV . Q24H [facility] Rx#:[id number] pressure bag 39 36 329 Intake, IV Titration 90.447 84.397 25.208 Amount Insulin Regular 100 unit 29.583 In Sodium Chloride 0.9% 100 ml @ Per Protocol IV .Q0M SAR[facility] Rx#:[id number] Insulin Regular 100 unit 60.864 84.397 25.208 In Sodium Chloride 0.9% 100 ml @ Per Protocol IV .Q0M SAR[facility] Rx#:[id number] Tube Feeding 1020 1020 340 Other 930 760 60 Output: Urine 2955 1945 860 Other: Voiding Method Indwelling Catheter Indwelling Catheter ABP, PAP, CO, CI - Last Documented Arterial Blood Pressure 90/48 - Exam No acute distress, tracheostomy tube in place. The patient is awake and following simple commands.. HEENT examination is grossly unremarkable. Mucous membranes are moist. No oral lesions. Neck supple. Full range of motion. No adenopathy thyromegaly or neck vein distention. Cardiovascular examination reveals regular rhythm rate. S1-S2 normal. No S3 or S4. No discernible murmur noted. Heart sounds are distant. Lungs reveal coarse bilateral breath sounds. Breath sounds are diminished. No wheezes or rhonchi. Abdomen obese, and bowel sounds are noted. No masses or tenderness appreciated. PEG tube noted. Extremities are intact. Slight edema noted. Skin is without rash or lesion. Neurologic examination without noted focal deficits. - Labs CBC & Chem 7: 10/16/17 04:10 10/16/17 04:10 Labs: Abnormal Lab Results - Last 24 Hours (Table) 10/15/17 10/15/17 10/15/17 Range/Units 12:19 13:58 16:06 RBC (3.80-5.40) m/uL Hgb (11.4-16.0) gm/dL Hct (34.0-46.0) % MCHC (31.0-37.0) g/dL RDW (11.5-15.5) % Lymphocytes # (1.0-4.8) k/uL ABG pH (7.35-7.45) ABG pCO2 (35-45) mmHg ABG pO2 (83-108) mmHg ABG HCO3 (21-25) mmol/L ABG Total CO2 (19-24) mmol/L ABG O2 Saturation (94-97) % Carbon Dioxide (22-30) mmol/L Glucose (74-99) mg/dL POC Glucose (mg/dL) 205 H 197 H 195 H (75-99) mg/dL Phosphorus (2.5-4.5) mg/dL 10/15/17 10/15/17 10/15/17 Range/Units 18:14 20:51 22:22 RBC (3.80-5.40) m/uL Hgb (11.4-16.0) gm/dL Hct (34.0-46.0) % MCHC (31.0-37.0) g/dL RDW (11.5-15.5) % Lymphocytes # (1.0-4.8) k/uL ABG pH (7.35-7.45) ABG pCO2 (35-45) mmHg ABG pO2 (83-108) mmHg ABG HCO3 (21-25) mmol/L ABG Total CO2 (19-24) mmol/L ABG O2 Saturation (94-97) % Carbon Dioxide (22-30) mmol/L Glucose (74-99) mg/dL POC Glucose (mg/dL) 177 H 148 H 198 H (75-99) mg/dL Phosphorus (2.5-4.5) mg/dL 10/15/17 10/16/17 10/16/17 Range/Units 23:12 00:05 01:07 RBC (3.80-5.40) m/uL Hgb (11.4-16.0) gm/dL Hct (34.0-46.0) % MCHC (31.0-37.0) g/dL RDW (11.5-15.5) % Lymphocytes # (1.0-4.8) k/uL ABG pH (7.35-7.45) ABG pCO2 (35-45) mmHg ABG pO2 (83-108) mmHg ABG HCO3 (21-25) mmol/L ABG Total CO2 (19-24) mmol/L ABG O2 Saturation (94-97) % Carbon Dioxide (22-30) mmol/L Glucose (74-99) mg/dL POC Glucose (mg/dL) 185 H 165 H 189 H (75-99) mg/dL Phosphorus (2.5-4.5) mg/dL 10/16/17 10/16/17 10/16/17 Range/Units 01:51 03:12 04:04 RBC (3.80-5.40) m/uL Hgb (11.4-16.0) gm/dL Hct (34.0-46.0) % MCHC (31.0-37.0) g/dL RDW (11.5-15.5) % Lymphocytes # (1.0-4.8) k/uL ABG pH (7.35-7.45) ABG pCO2 (35-45) mmHg ABG pO2 (83-108) mmHg ABG HCO3 (21-25) mmol/L ABG Total CO2 (19-24) mmol/L ABG O2 Saturation (94-97) % Carbon Dioxide (22-30) mmol/L Glucose (74-99) mg/dL POC Glucose (mg/dL) 196 H 184 H 192 H (75-99) mg/dL Phosphorus (2.5-4.5) mg/dL 10/16/17 10/16/17 10/16/17 Range/Units 04:10 04:10 05:00 RBC 3.29 L (3.80-5.40) m/uL Hgb 8.8 L (11.4-16.0) gm/dL Hct 30.7 L (34.0-46.0) % MCHC 28.8 L (31.0-37.0) g/dL RDW 15.7 H (11.5-15.5) % Lymphocytes # 0.7 L (1.0-4.8) k/uL ABG pH (7.35-7.45) ABG pCO2 (35-45) mmHg ABG pO2 (83-108) mmHg ABG HCO3 (21-25) mmol/L ABG Total CO2 (19-24) mmol/L ABG O2 Saturation (94-97) % Carbon Dioxide 34 H (22-30) mmol/L Glucose 173 H (74-99) mg/dL POC Glucose (mg/dL) 162 H (75-99) mg/dL Phosphorus 4.6 H (2.5-4.5) mg/dL 10/16/17 10/16/17 10/16/17 Range/Units 05:30 06:06 06:56 RBC (3.80-5.40) m/uL Hgb (11.4-16.0) gm/dL Hct (34.0-46.0) % MCHC (31.0-37.0) g/dL RDW (11.5-15.5) % Lymphocytes # (1.0-4.8) k/uL ABG pH 7.33 L (7.35-7.45) ABG pCO2 71 H* (35-45) mmHg ABG pO2 71 L (83-108) mmHg ABG HCO3 37 H (21-25) mmol/L ABG Total CO2 39 H (19-24) mmol/L ABG O2 Saturation 92.3 L (94-97) % Carbon Dioxide (22-30) mmol/L Glucose (74-99) mg/dL POC Glucose (mg/dL) 163 H 159 H (75-99) mg/dL Phosphorus (2.5-4.5) mg/dL 10/16/17 10/16/17 Range/Units 08:17 10:12 RBC (3.80-5.40) m/uL Hgb (11.4-16.0) gm/dL Hct (34.0-46.0) % MCHC (31.0-37.0) g/dL RDW (11.5-15.5) % Lymphocytes # (1.0-4.8) k/uL ABG pH (7.35-7.45) ABG pCO2 (35-45) mmHg ABG pO2 (83-108) mmHg ABG HCO3 (21-25) mmol/L ABG Total CO2 (19-24) mmol/L ABG O2 Saturation (94-97) % Carbon Dioxide (22-30) mmol/L Glucose (74-99) mg/dL POC Glucose (mg/dL) 163 H 165 H (75-99) mg/dL Phosphorus (2.5-4.5) mg/dL Assessment and Plan Assessment: Assessment: Acute on chronic hypoxemic and hypercapnic respiratory failure secondary to COPD morbid obesity sleep apnea syndrome and pickwickian syndrome Hypovolemic shock Failure to wean from mechanical ventilation despite daily interruption of sedation and spontaneous breathing trials, status post tracheostomy and PEG tube placement on 10/12/2017 Acute kidney injury, secondary to acute tubular necrosis Hypernatremia Hypotension Diabetes mellitus COPD Sleep apnea syndrome Pickwickian syndrome, secondary to morbid obesity. Diabetic neuropathy Hypertension Hyperlipidemia DJD Gout Hypothyroidism Plan: The patient was seen and evaluated by Dr. Laurent. We'll continue with her current medications. Consult has been placed for select specialty. She'll be placed on pressure support of 10 and a PEEP of 5 again today around noontime. We have instructed the staff and respiratory therapy to place her back on the vent and her current settings by 7 PM at night. We'll continue to monitor her here closely in the intensive care unit. We'll continue to follow and make further recommendations based on her clinical status. Critical care time 35 minutes. I, the cosigning physician, performed a history & physical examination of the patient. Lungs sounds have few scattered rhonchi, crackles in the posterior bases. Maintaining good O2 saturations in the 90s on 45% FiO2. I discussed the assessment and plan of care with my nurse practitioner, Allison Cast. I attest to the above note as dictated by her. Time with Patient: Greater than 30
[2017-10-16 12:37] LABS: Glucose,Whole Blood 178 mg/dL (75-99)
[2017-10-16 14:00] LABS: Glucose,Whole Blood 170 mg/dL (75-99)
[2017-10-16] MEDS ORDERED: diphenhydrAMINE 25 MG CAP PO PRN (14:52)
[2017-10-16 16:04] LABS: Glucose,Whole Blood 161 mg/dL (75-99)
[2017-10-16] MEDS: metFORMIN 500 MG TAB PO SCH (18:02)
[2017-10-16 18:05] LABS: Glucose,Whole Blood 142 mg/dL (75-99)
--- NOTE | 2017-10-16 18:55 | PN ---
PROGRESS NOTE DATE OF SERVICE: 10/16/2017. INTERVAL HISTORY: This 52-year-old woman is admitted with respiratory failure with possible chronic obstructive pulmonary disease, CHF, is being closely monitored. The patient also had acute renal failure as well. The patient is mechanically intubated because of failure of weaning, the patient underwent a tracheostomy and PEG tube. The patient also blood sugars are elevated, sugars have been controlled. Insulin drip will be continued 6 to 7 units/hour. Patient is on Lantus insulin 120 units which is a fairly large dose as well as Glucophage at home. The patient is CPAP trials. PAST MEDICAL HISTORY: Reviewed. REVIEW OF SYSTEMS: Could not be taken. The patient is on mechanical ventilation and CPAP also. CURRENT MEDICATIONS ARE: Reviewed and include: 1. Tylenol 650 q.6 p.r.n. 2. Diamox 500 mg daily. 3. DuoNeb q.i.d. p.r.n. 4. Zyloprim 200 mg daily. 5. Aspirin 81 mg daily. 6. Pulmicort 1 mg b.i.d. 7. Rocephin 1 gm q.h.s. 8. Peridex 15 mL b.i.d. 9. Diphenhydramine 625 mg q.6h. 10.Lexapro 10 mg q.h.s. 11.Iron sulfate 320 mg daily. 12.Lasix 40 mg b.i.d. 13.Neurontin 300 mg p.o. b.i.d. 14.Dilaudid. 15.Heparin subcu. 16.Prograf. 17.Hydroxy progesterone. 18.Glucophage. 19.Lopressor. 20.Morphine sulfate. 21.Protonix. 22.Lyrica. PHYSICAL EXAM: Patient is mechanically ventilated and sedated. Pulse is on CPAP, 12 L CPAP pulse 101, blood pressure 98/60, respiration 17, temperature normal. Pulse ox noted. HEENT: Conjunctivae normal. Oral mucosa moist. Neck is tracheostomy. Obese. Cardiovascular S1, S2. No S3, no S4. Respiratory: Breath sounds diminished in the bases. Bilateral scattered rhonchi and crackles. ABDOMEN: Soft, obese, PEG tube placement. Legs: No edema and no swelling. Nervous system: The patient mechanically ventilated and sedated. Skin: No ulcer, rash or bleeding. Joints: No active deforming arthropathy. LABS: Investigations at this time shows: Glucose 171, 161, otherwise other labs are WBC 5.8, hemoglobin is 8.8. ABG, pH of 7.3. Other labs are reviewed. ASSESSMENT: 1. Shortness of breath possibly multifactorial with chronic obstructive pulmonary disease acute exacerbation as well as congestive heart failure acute exacerbation with acute on chronic diastolic dysfunction with acute on chronic hypoxic respiratory failure on mechanical ventilation. 2. Acute renal failure possibly prerenal renal failure with acute tubular necrosis, multifactorial, present on admission. 3. Status post PEG tube placement and tracheostomy. 4. Acute respiratory distress with mechanical ventilation. 5. Hyponatremia. 6. Morbid obesity with body mass index of 56.6 and obesity hypoventilation syndrome. 7. Chronic obstructive pulmonary disease. 8. Congestive heart failure. 9. Diabetes type 2. 10.Hypertension. 11.Hyperlipidemia. 12.History of degenerative joint disease. 13.History of pneumonia. 14.History of sleep apnea. 15.History of gout. 16.History of peripheral neuropathy. RECOMMENDATIONS AND DISCUSSION: Recommend to continue current medications. Continue to monitor, symptomatic treatment. Continue with mechanical ventilation for the CPAP trials. Otherwise, continue insulin drip at this time. Add Glucophage to the current regimen and if the sugars are getting well controlled, recommend insulin not that much insulin, Lantus could be restarted, but however also closely followed with Dr. Laurent and possible [facility] referral and continue to monitor and also prognosis guarded because of multiple complex medical issues. Further recommendations to follow. MMLALAL / IJN: [id number] / MTDD
[2017-10-16 20:10] LABS: Glucose,Whole Blood 164 mg/dL (75-99)
[2017-10-16] MEDS: ESCITALOPRAM 10 MG TAB PO SCH (21:28)
[2017-10-16] MEDS: cefTRIAXone IN SWFI 1,000 MG/10 ML SYRINGE IVP SCH (21:44)
[2017-10-16 21:55] LABS: Glucose,Whole Blood 134 mg/dL (75-99)
[2017-10-17] MEDS: HEPARIN SODIUM,PORCINE 5,000 UNIT/ML 1 ML VIAL SQ SCH ×3 (00:15→16:49)
[2017-10-17 00:21] LABS: Glucose,Whole Blood 121 mg/dL (75-99)
[2017-10-17 00:58] LABS: Glucose,Whole Blood 159 mg/dL (75-99)
[2017-10-17 02:05] LABS: Glucose,Whole Blood 160 mg/dL (75-99)
[2017-10-17] MEDS: IPRATROPIUM-ALBUTEROL 3 ML NEB INHALATION SCH ×6 (03:22→23:37)
[2017-10-17] MEDS: INSULIN REGULAR 100 UNIT in SODIUM CHLORIDE 0.9% 100 ML IV SCH (03:34)
[2017-10-17 04:28] LABS: Glucose,Whole Blood 162 mg/dL (75-99)
[2017-10-17 04:43] LABS: Basophils % (A) 0 %; Eosinophils # (A) 0.2 k/uL (0-0.7); Eosinophils % (A) 3 %; HCT 30.1 % (34.0-46.0); HGB 8.7 gm/dL (11.4-16.0); Hypochromasia Marked; Lymphocytes # (A) 0.7 k/uL (1.0-4.8); Lymphocytes % (A) 14 %; MCH 26.7 pg (25.0-35.0); MCV 92.1 fL (80.0-100.0); Mean Platelet Volume 8.8; Monocytes # (A) 0.4 k/uL (0-1.0); Monocytes % (A) 7 %; Neutrophils # (A) 3.7 k/uL (1.3-7.7); Neutrophils % (A) 72 %; Platelet Count 262 k/uL (150-450); RBC 3.26 m/uL (3.80-5.40); RDW 15.5 % (11.5-15.5); WBC 5.2 k/uL (3.8-10.6)
[2017-10-17 04:57] LABS: Anion Gap 5 mmol/L; Blood Urea Nitrogen 18 mg/dL (7-17); Calcium 8.9 mg/dL (8.4-10.2); Carbon Dioxide 36 mmol/L (22-30); Chloride 101 mmol/L (98-107); Glucose 176 mg/dL (74-99); Phosphorus 3.3 mg/dL (2.5-4.5); Potassium 3.6 mmol/L (3.5-5.1); Sodium 142 mmol/L (137-145)
[2017-10-17 05:08] LABS: ABG Base Excess 9.7 mmol/L; ABG HCO3 34 mmol/L (21-25); ABG Oxygen Saturation 95.4 % (94-97); ABG PCO2 51 mmHg (35-45); ABG PH 7.43 (7.35-7.45); ABG PO2 77 mmHg (83-108); ABG TCO2 36 mmol/L (19-24)
[2017-10-17] MEDS ORDERED: Potassium Replacement Protocol 1 EACH MISC MISCELLANE PRN (05:27)
[2017-10-17] MEDS ORDERED: Magnesium Replacement Protocol 1 EACH MISC MISCELLANE PRN (05:28)
[2017-10-17] MEDS ORDERED: POTASSIUM BICARBONATE/CIT AC 20 MEQ TABLET.EFF NG-TUBE SCH (06:00)
--- NOTE | 2017-10-17 07:19 | XR ---
EXAMINATION TYPE: XR chest 1V portable DATE OF EXAM: 10/17/2017 CLINICAL HISTORY: Difficulty breathing progress study. TECHNIQUE: Single AP portable upright view of the chest is obtained. COMPARISON: Chest x-ray from one day earlier and older studies FINDINGS: Tracheostomy tube and left-sided PICC line are redemonstrated. There is persistent cardiom egaly with atherosclerotic thoracic aorta. There is chronic emphysematous change without new focal ai rspace opacity, pleural effusion, or pneumothorax seen bilaterally. Osseous structures are intact. IMPRESSION: Overall stable findings, cardiomegaly and chronic emphysematous change without suspicio us acute pulmonary process.
[2017-10-17] MEDS: BUDESONIDE 1 MG/2 ML NEBU INHALATION SCH ×2 (07:29→19:23)
[2017-10-17] MEDS: MORPHINE SULFATE 4 MG/ML SYRINGE IVP PRN ×2 (07:56→15:30)
[2017-10-17] MEDS: MAGNESIUM SULFATE-D5W PMX 1 GM in DEXTROSE/WATER 1 100ML.BAG IVPB SCH ×2 (07:56→09:12)
[2017-10-17 08:03] LABS: Glucose,Whole Blood 145 mg/dL (75-99)
[2017-10-17] MEDS: PANTOPRAZOLE 40 MG/10 ML VIAL IV SCH (08:05)
[2017-10-17] MEDS: FUROSEMIDE 10 MG/ML 4 ML VIAL IV SCH ×2 (08:05→21:10)
[2017-10-17] MEDS: medroxyPROGESTERone 10 MG TABLET PEG/G-TUBE SCH ×3 (08:07→22:19)
[2017-10-17] MEDS: metFORMIN 500 MG TAB PO SCH ×2 (08:07→16:50)
[2017-10-17] MEDS: PREGABALIN 75 MG CAP PO SCH ×2 (08:07→21:29)
[2017-10-17] MEDS: ESCITALOPRAM 10 MG TAB PO SCH (08:08)
[2017-10-17] MEDS: acetaZOLAMIDE 250 MG TAB PEG/G-TUBE SCH (08:08)
[2017-10-17] MEDS: FERROUS SULFATE 325 MG TAB PO SCH (08:08)
[2017-10-17] MEDS: ASPIRIN 81 MG PO SCH (08:08)
[2017-10-17] MEDS: METOPROLOL TARTRATE 12.5 MG TAB PO SCH ×3 (08:08→22:19)
[2017-10-17] MEDS: GABAPENTIN 300 MG CAP PO SCH ×2 (08:08→21:29)
[2017-10-17] MEDS: CHLORHEXIDINE GLUCONATE 15 ML CUP MUCOUS MEM SCH ×2 (08:08→21:11)
[2017-10-17] MEDS: ALLOPURINOL 100 MG TAB PO SCH (08:09)
[2017-10-17] MEDS ORDERED: ONDANSETRON 4 MG/2 ML VIAL IVP PRN (08:12)
[2017-10-17] MEDS: SODIUM CHLORIDE 0.45% 1,000 ML IV SCH (10:04)
[2017-10-17 10:07] LABS: Glucose,Whole Blood 183 mg/dL (75-99)
[2017-10-17 11:16] VITALS: BMI 77.9
[2017-10-17] MEDS ORDERED: INSULIN ASPART 100 UNIT/ML 1 ML 10 ML VIAL SQ SCH (12:30)
[2017-10-17 12:31] LABS: Glucose,Whole Blood 158 mg/dL (75-99)
[2017-10-17] MEDS: INSULIN DETEMIR 100 UNIT/ML 10 ML VIAL SQ SCH ×2 (12:31→21:11)
--- NOTE | 2017-10-17 12:39 | P.PN ---
<Tiffany Wang M - Last Filed: 10/17/17 12:32> Subjective Progress Note Date: 10/17/17 Principal diagnosis: Acute hypercapnic respiratory failure, acute kidney injury, pickwickian syndrome. Progress note dated 10/10/2017 This is a 52-year-old obese female was admitted with a diagnosis of respiratory failure and acute kidney injury. She was admitted on October 07 and was intubated on the . She remains on the ventilator. The patient is initially on BiPAP, but developed tere respiratory failure or car intubation. I think this patient is a patient who would best be suited for early tracheostomy given her multiple episodes of acute respiratory failure her severe COPD her pickwickian syndrome and her sleep apnea syndrome. Currently the patient herself cannot give any additional history as she is now on the ventilator. Vent settings include the assist control mode, rate is 18 tidal volume was 500 FiO2 50% to be dropped down to 40%, PEEP of 5. Blood gases show a PaO2 of 96 a PaCO2 of 59 and a pH of 7.37. She is receiving a saline IV at 1 50 mL an hour norepinephrine at 1 [place] per gram per minute propofol at 50 mics per kilogram per minute insulin drip at 3 units an hour and vital AF with a rate of 45 and a goal of 45. Because of that because of hypernatremia, have to add some free water flushes. Her other medical history includes chronic hypoxemic and hypercapnic respiratory failure secondary to pickwickian syndrome , sleep apnea syndrome, and COPD. In addition, the patient has hypovolemic shock, acute kidney injury secondary to ATN, hypernatremia hypotension insulin- dependent diabetes mellitus COPD morbid obesity sleep apnea syndrome diabetic neuropathy hypertension hyperlipidemia DJD and gout and hypothyroidism. Progress note dated 10/11/2017 This is a 52-year-old obese female who was admitted with a diagnosis of respiratory failure and acute kidney injury. She was admitted on the . She was intubated today later on the . She remains on the ventilator. She' s not made much or any progress. The patient was initially on BiPAP but failed BiPAP. The patient will be evaluated by cardiothoracic surgery for early tracheostomy and PEG tube placement given her many episodes of respiratory failure. In addition to morbid obesity and severe COPD, she has history of pickwickian syndrome and sleep apnea syndrome. Most of the time she is BiPAP dependent. We will do a daily interruption of sedation today and evaluate her for a spontaneous breathing trial. Currently, the patient's on the assist control mode rate of 18, tidal volume 500, FiO2 40%, PEEP of 5. Arterial blood gases show a PaO2 of 68 PaCO2 of 58 and pH 7.39. She's currently on an insulin drip at 4 units an hour saline IV at 100 mL an hour propofol at 50 mics because kilogram per minute and tube feeds with vital AF at 55 with a goal of 55 mL an hour. Progress note dated 10/12/2017 52-year-old obese female admitted with a diagnosis of respiratory failure and acute kidney injury. She was admitted on the . She was intubated later on the . She remains on the ventilator. She has not made any progress despite daily interruption to sedation and spontaneous breathing trials. I did ask thoracic surgery to consider tracheostomy which is apparently planned for tomorrow. The patient was initially on BiPAP failed that. In addition to morbid obesity and severe COPD with multiple episodes of respiratory failure, the patient has a history pickwickian syndrome and sleep apnea syndrome. Most the time when she is here, she is BiPAP dependent. Currently, the patient's ventilator settings are unchanged and include the assist control mode rate of 18 , tidal volume 500, FiO2 40%, PEEP of 5. Blood gases are noted. The patient's on a basic IV and sedation with propofol as well as her tube feeds which is vital AF at 55 with a goal of 55 MLS per hour. Her condition is changed very little since yesterday. Her chest x-ray does show some mild fluid overload and some infiltrates or atelectasis at the lung bases. Today again, we will try a daily eruption of sedation with a spontaneous breathing trial as we do every day. Should she do better today, we will cancel the tracheostomy and PEG tube placement. In addition to the above, she has a history of hypothyroidism, gout , DJD, hyperlipidemia, hypertension, diabetic neuropathy, sleep apnea syndrome, diabetes, and acute tubular necrosis. Progress note dated 10/13/2017 52-year-old obese female admitted with a diagnosis of respiratory failure. She was admitted on the . She was intubated later on the . She remains on the ventilator. She was making no progress. The patient has multiple episodes of admissions to the hospital with hypoxemic and hypercapnic respiratory failure. Because of her lack of progress, the patient underwent a tracheostomy and PEG tube placement yesterday by one of the cardiothoracic surgeons. She seemed to do relatively well today and the plan is to old her sedation and put her on PSV and CPAP. I think she will do relatively well. Her sleep apnea is effectively carried out she has a tracheostomy. I don't know if that will be permanent or not. The patient's currently on the mechanical ventilator. Vent settings include a assist control mode, rate 18 tidal volume 500 FiO2 40% and PEEP of 5. The patient's blood gases show a PaO2 of 65 a PaCO2 of 54 and a pH of 7.42. Her IVs included D5W at 125 mL an hour, propofol at 25 mics per kilogram per minute and an insulin drip at 5 units per hour. Her peak airway pressure is 28 and her minute volume is 10.6. When she is awake, we'll place her on PSV 8 CPAP of 5. Chest x-ray was reviewed. Other than removal of endotracheal tube and placement of the tracheostomy tube, the x-ray looks very similar. Progress note dated 10/14/2017 52-year-old obese female admitted with a diagnosis of respiratory failure. The patient had a tracheostomy and PEG tube done 2 days ago on October 12. The patient was initially admitted on the . She was intubated later on the . She remains on the ventilator was making no progress and hence the tracheostomy and PEG tube placement. She's had multiple episodes of both hypoxemic and hypercapnic respiratory failure. Most of the time she becomes BiPAP dependent. Yesterday she had a daily interruption of sedation with a trial a PSV CPAP and she did okay for about 2 hours. Today, we tried the same but she did very poorly. Put her on PSV 8 CPAP of 5. Today we are going to start her on Provera 20 mg 3 times a day as a respiratory stimulant as well as Diamox 500 mg orally per day. We'll also see if we can get some excess fluid off of her. She is quite edematous and has significant anasarca. We'll add some Lasix 40 mg every 12. In addition, the IV of half normal saline will be switched to KVO. We'll increase free water to 100 mL every 6 hours we will start some insulin at 3 units an hour and she is on vital high protein at 50 mL now with a goal of 59. Current vent settings are the assist control mode rate of 18 tidal volume of 500 FiO2 of 40% and PEEP of 5. Blood gases on that showed a PaO2 of 57 a PaCO2 of 55 and a pH of 7.44. Progress note dated 10/15/2017 The patient is seen again today in follow-up in the intensive care unit. She is currently awake and alert not requiring any sedation. She had her tracheostomy and PEG tube placement done and is currently on the mechanical ventilator, settings of assist control of 18, tidal volume 500, FiO2 45% and a PEEP of 5. Morning blood gases reveal a P O2 of 71, pCO2 61 and a pH of 7.38. She has a 0.45 normal saline at 20 MLS per hour. Insulin drip currently at 6.5 units per hour. She is being nourished with Vital 1.2 at 68 MLS per hour which is her goal. She'll be given another weaning trial and started on a pressure support of 10 and a CPAP of 5. Progress note dated 10/16/2017 The patient is seen again today in follow-up in the intensive care unit. She remains on the mechanical ventilator with current settings of assist control of 18, tidal volume 500, FiO2 45% and a PEEP of 5. Morning blood gases reveal a pO2 of 70, pCO2 70, pH 7.32. She was more hypercapnic today based on the fact that she was on a pressure support of 10 and a PEEP of 5 through most of the night. Chest x-ray reveals basilar infiltrate/atelectasis. She remains on ceftriaxone. She remains off sedation. She is awake and alert in no acute distress. She is currently on a 0.45% normal saline at 20 MLS per hour, insulin drip at 8 units per hour. She is being nourished with Vital 1.2 at 68 MLS per hour which is his goal. On 10/17/2017 patient seen in follow-up in intensive care unit. She has been on CPAP of 5 and pressure support at 10, FiO2 45% since 7:30 this morning. Tolerating it fairly well. Does not appear to be in any acute distress. She is awake, alert, is able to shake her head yes or no to basic questions. Lung sounds are positive for a few scattered rhonchi, no wheezes noted. Patient remains hemodynamically stable, she is not on any pressors, 0.9 normal saline and is infusing at 20 mL an hour. Insulin infusion is going at 8.5 units per hour. Sputum, urine and blood cultures remain negative. She remains on empiric abiotic's in the form of Rocephin. On nebulized treatments, Pulmicort, DuoNeb. She is on IV Lasix at 40 mg every 12 hours. Chest x-ray shows overall stable findings, cardiomegaly and chronic emphysematous change without acute pulmonary process. Feedings are infusing at 60 mL per hour, patient's tolerating them well. No acute events overnight, discharge planning is in progress for [facility] in the next few days. Objective - Vital Signs Vital signs: Vital Signs Temp 99.9 F H 10/17/17 08:00 Pulse 102 H 10/17/17 12:14 Resp 20 10/17/17 12:00 BP 142/70 10/17/17 05:00 Pulse Ox 92 L 10/17/17 12:00 Intake & Output 10/16/17 10/17/17 10/17/17 18:59 06:59 18:59 Intake Total 2774.515 169.185 7043.164 Output Total 2220 1040 1220 Balance 554.515 -424.162 -55.836 Weight 232.4 kg Intake: IV 663 276 138 Magnesium Sulfate-D5w Pmx 100 1 gm In Dextrose/Water 1 100ml.bag @ 100 mls/hr IVPB Q1H SARAH Rx#: [id number] Sodium Chloride 0.45% 1, 210 240 120 000 ml @ 20 mls/hr IV . Q24H SARAH Rx#:[id number] pressure bag 353 36 18 Intake, IV Titration 101.515 67.838 258.164 Amount Insulin Regular 100 unit 101.515 67.838 58.164 In Sodium Chloride 0.9% 100 ml @ Per Protocol IV .Q0M SARAH Rx#:[id number] Magnesium Sulfate-D5w Pmx 200 1 gm In Dextrose/Water 1 100ml.bag @ 100 mls/hr IVPB Q1H SARAH Rx#: [id number] Tube Feeding 1020 272 408 Other 990 360 Output: Urine 2220 1040 1220 Other: Voiding Method Indwelling Catheter Indwelling Catheter Indwelling Catheter ABP, PAP, CO, CI - Last Documented Arterial Blood Pressure 91/66 - Exam No acute distress, tracheostomy tube in place. The patient is awake and following simple commands.. HEENT examination is grossly unremarkable. Mucous membranes are moist. No oral lesions. Neck supple. Full range of motion. No adenopathy thyromegaly or neck vein distention. Cardiovascular examination reveals regular rhythm rate. S1-S2 normal. No S3 or S4. No discernible murmur noted. Heart sounds are distant. Lungs reveal coarse bilateral breath sounds. Breath sounds are diminished. No wheezes or rhonchi. Abdomen obese, and bowel sounds are noted. No masses or tenderness appreciated. PEG tube noted. Extremities are intact. Slight edema noted. Skin is without rash or lesion. Neurologic examination without noted focal deficits - Labs CBC & Chem 7: 10/17/17 04:30 10/17/17 04:30 Labs: Abnormal Lab Results - Last 24 Hours (Table) 10/16/17 10/16/17 10/16/17 Range/Units 12:35 13:59 16:03 RBC (3.80-5.40) m/uL Hgb (11.4-16.0) gm/dL Hct (34.0-46.0) % MCHC (31.0-37.0) g/dL Lymphocytes # (1.0-4.8) k/uL ABG pCO2 (35-45) mmHg ABG pO2 (83-108) mmHg ABG HCO3 (21-25) mmol/L ABG Total CO2 (19-24) mmol/L Carbon Dioxide (22-30) mmol/L BUN (7-17) mg/dL Glucose (74-99) mg/dL POC Glucose (mg/dL) 178 H 170 H 161 H (75-99) mg/dL 10/16/17 10/16/17 10/16/17 Range/Units 18:03 20:07 21:53 RBC (3.80-5.40) m/uL Hgb (11.4-16.0) gm/dL Hct (34.0-46.0) % MCHC (31.0-37.0) g/dL Lymphocytes # (1.0-4.8) k/uL ABG pCO2 (35-45) mmHg ABG pO2 (83-108) mmHg ABG HCO3 (21-25) mmol/L ABG Total CO2 (19-24) mmol/L Carbon Dioxide (22-30) mmol/L BUN (7-17) mg/dL Glucose (74-99) mg/dL POC Glucose (mg/dL) 142 H 164 H 134 H (75-99) mg/dL 10/17/17 10/17/17 10/17/17 Range/Units 00:18 00:55 02:03 RBC (3.80-5.40) m/uL Hgb (11.4-16.0) gm/dL Hct (34.0-46.0) % MCHC (31.0-37.0) g/dL Lymphocytes # (1.0-4.8) k/uL ABG pCO2 (35-45) mmHg ABG pO2 (83-108) mmHg ABG HCO3 (21-25) mmol/L ABG Total CO2 (19-24) mmol/L Carbon Dioxide (22-30) mmol/L BUN (7-17) mg/dL Glucose (74-99) mg/dL POC Glucose (mg/dL) 121 H 159 H 160 H (75-99) mg/dL 10/17/17 10/17/17 10/17/17 Range/Units 04:26 04:30 04:30 RBC 3.26 L (3.80-5.40) m/uL Hgb 8.7 L (11.4-16.0) gm/dL Hct 30.1 L (34.0-46.0) % MCHC 29.0 L (31.0-37.0) g/dL Lymphocytes # 0.7 L (1.0-4.8) k/uL ABG pCO2 (35-45) mmHg ABG pO2 (83-108) mmHg ABG HCO3 (21-25) mmol/L ABG Total CO2 (19-24) mmol/L Carbon Dioxide 36 H (22-30) mmol/L BUN 18 H (7-17) mg/dL Glucose 176 H (74-99) mg/dL POC Glucose (mg/dL) 162 H (75-99) mg/dL 10/17/17 10/17/17 10/17/17 Range/Units 05:06 08:02 10:05 RBC (3.80-5.40) m/uL Hgb (11.4-16.0) gm/dL Hct (34.0-46.0) % MCHC (31.0-37.0) g/dL Lymphocytes # (1.0-4.8) k/uL ABG pCO2 51 H (35-45) mmHg ABG pO2 77 L (83-108) mmHg ABG HCO3 34 H (21-25) mmol/L ABG Total CO2 36 H (19-24) mmol/L Carbon Dioxide (22-30) mmol/L BUN (7-17) mg/dL Glucose (74-99) mg/dL POC Glucose (mg/dL) 145 H 183 H (75-99) mg/dL 10/17/17 Range/Units 12:28 RBC (3.80-5.40) m/uL Hgb (11.4-16.0) gm/dL Hct (34.0-46.0) % MCHC (31.0-37.0) g/dL Lymphocytes # (1.0-4.8) k/uL ABG pCO2 (35-45) mmHg ABG pO2 (83-108) mmHg ABG HCO3 (21-25) mmol/L ABG Total CO2 (19-24) mmol/L Carbon Dioxide (22-30) mmol/L BUN (7-17) mg/dL Glucose (74-99) mg/dL POC Glucose (mg/dL) 158 H (75-99) mg/dL Assessment and Plan Plan: Assessment: Acute on chronic hypoxemic and hypercapnic respiratory failure secondary to COPD morbid obesity sleep apnea syndrome and pickwickian syndrome Hypovolemic shock Failure to wean from mechanical ventilation despite daily interruption of sedation and spontaneous breathing trials, status post tracheostomy and PEG tube placement on 10/12/2017 Acute kidney injury, secondary to acute tubular necrosis, proving Hypernatremia, improved, today's sodium is 142 Hypotension, resolved Diabetes mellitus COPD Sleep apnea syndrome Pickwickian syndrome, secondary to morbid obesity. Diabetic neuropathy Hypertension Hyperlipidemia DJD Gout Hypothyroidism Plan: Continue current plan of care, continue IV diuresis, Diamox, Provera. We'll make sure patient's medications are reconciled. Continue Pulmicort, DuoNeb. Continue Rocephin for empiric antibiotic coverage. Patient is tolerating CPAP trials very well, he has been going to the assist-control mode at night. Continue GI/DVT prophylaxis, tube feedings. Discharge planning is in progress [facility] next few days. I performed a history & physical examination of the patient and discussed their management with my nurse practitioner, Tiffany Wang. I reviewed the nurse practitioner's note and agree with the documented findings and plan of care. Lung sounds are a few scattered rhonchi. The findings and the impression was discussed with the patient. I attest to the documentation by the nurse practitioner. Time with Patient: Greater than 30 <Aracelis Christianson - Last Filed: 10/17/17 16:18> Objective - Vital Signs Vital signs: Vital Signs Temp 99.9 F H 10/17/17 08:00 Pulse 110 H 10/17/17 15:53 Resp 16 10/17/17 15:00 BP 142/70 10/17/17 05:00 Pulse Ox 92 L 10/17/17 15:00 Intake & Output 10/16/17 10/17/17 10/17/17 18:59 06:59 18:59 Intake Total 2774.515 310.302 9786.164 Output Total 2220 1040 1700 Balance 554.515 -424.162 -103.836 Weight 232.4 kg Intake: IV 663 276 230 Magnesium Sulfate-D5w Pmx 100 1 gm In Dextrose/Water 1 100ml.bag @ 100 mls/hr IVPB Q1H [facility] Rx#: [id number] Sodium Chloride 0.45% 1, 210 240 200 000 ml @ 20 mls/hr IV . Q24H SARAH Rx#:[id number] pressure bag 353 36 30 Intake, IV Titration 101.515 67.838 258.164 Amount Insulin Regular 100 unit 101.515 67.838 58.164 In Sodium Chloride 0.9% 100 ml @ Per Protocol IV .Q0M SARAH Rx#:[id number] Magnesium Sulfate-D5w Pmx 200 1 gm In Dextrose/Water 1 100ml.bag @ 100 mls/hr IVPB Q1H SARAH Rx#: [id number] Tube Feeding 1020 272 748 Other 990 360 Output: Urine 2220 1040 1700 Other: Voiding Method Indwelling Catheter Indwelling Catheter Indwelling Catheter ABP, PAP, CO, CI - Last Documented Arterial Blood Pressure 110/74 - Labs CBC & Chem 7: 10/17/17 04:30 10/17/17 04:30 Labs: Abnormal Lab Results - Last 24 Hours (Table) 10/16/17 10/16/17 10/16/17 Range/Units 18:03 20:07 21:53 RBC (3.80-5.40) m/uL Hgb (11.4-16.0) gm/dL Hct (34.0-46.0) % MCHC (31.0-37.0) g/dL Lymphocytes # (1.0-4.8) k/uL ABG pCO2 (35-45) mmHg ABG pO2 (83-108) mmHg ABG HCO3 (21-25) mmol/L ABG Total CO2 (19-24) mmol/L Carbon Dioxide (22-30) mmol/L BUN (7-17) mg/dL Glucose (74-99) mg/dL POC Glucose (mg/dL) 142 H 164 H 134 H (75-99) mg/dL 10/17/17 10/17/17 10/17/17 Range/Units 00:18 00:55 02:03 RBC (3.80-5.40) m/uL Hgb (11.4-16.0) gm/dL Hct (34.0-46.0) % MCHC (31.0-37.0) g/dL Lymphocytes # (1.0-4.8) k/uL ABG pCO2 (35-45) mmHg ABG pO2 (83-108) mmHg ABG HCO3 (21-25) mmol/L ABG Total CO2 (19-24) mmol/L Carbon Dioxide (22-30) mmol/L BUN (7-17) mg/dL Glucose (74-99) mg/dL POC Glucose (mg/dL) 121 H 159 H 160 H (75-99) mg/dL 10/17/17 10/17/17 10/17/17 Range/Units 04:26 04:30 04:30 RBC 3.26 L (3.80-5.40) m/uL Hgb 8.7 L (11.4-16.0) gm/dL Hct 30.1 L (34.0-46.0) % MCHC 29.0 L (31.0-37.0) g/dL Lymphocytes # 0.7 L (1.0-4.8) k/uL ABG pCO2 (35-45) mmHg ABG pO2 (83-108) mmHg ABG HCO3 (21-25) mmol/L ABG Total CO2 (19-24) mmol/L Carbon Dioxide 36 H (22-30) mmol/L BUN 18 H (7-17) mg/dL Glucose 176 H (74-99) mg/dL POC Glucose (mg/dL) 162 H (75-99) mg/dL 10/17/17 10/17/17 10/17/17 Range/Units 05:06 08:02 10:05 RBC (3.80-5.40) m/uL Hgb (11.4-16.0) gm/dL Hct (34.0-46.0) % MCHC (31.0-37.0) g/dL Lymphocytes # (1.0-4.8) k/uL ABG pCO2 51 H (35-45) mmHg ABG pO2 77 L (83-108) mmHg ABG HCO3 34 H (21-25) mmol/L ABG Total CO2 36 H (19-24) mmol/L Carbon Dioxide (22-30) mmol/L BUN (7-17) mg/dL Glucose (74-99) mg/dL POC Glucose (mg/dL) 145 H 183 H (75-99) mg/dL 10/17/17 Range/Units 12:28 RBC (3.80-5.40) m/uL Hgb (11.4-16.0) gm/dL Hct (34.0-46.0) % MCHC (31.0-37.0) g/dL Lymphocytes # (1.0-4.8) k/uL ABG pCO2 (35-45) mmHg ABG pO2 (83-108) mmHg ABG HCO3 (21-25) mmol/L ABG Total CO2 (19-24) mmol/L Carbon Dioxide (22-30) mmol/L BUN (7-17) mg/dL Glucose (74-99) mg/dL POC Glucose (mg/dL) 158 H (75-99) mg/dL Assessment and Plan Plan: Residual and evaluation was done along with a nurse practitioner. The patient is doing well. The patient is wide awake. The patient is tolerating CPAP trials. We will proceed with CPAP as long as the patient is able to tolerate. Continue rest of the supportive care and were looking [facility] a [facility].
[2017-10-17] MEDS: INSULIN ASPART 100 UNIT/ML 1 ML 10 ML VIAL SQ SCH ×2 (12:44→18:58)
--- NOTE | 2017-10-17 18:32 | PN ---
PROGRESS NOTE DATE OF SERVICE: 10/17/2016. INTERIM HISTORY: This 52-year-old woman who was admitted with shortness of breath which is multifactorial had tracheostomy and PEG tube. The patient sensorium has improved significantly, but however the patient had difficulty weaning and [facility] voiced some concerns. The patient is on broad spectrum antibiotics and Pulmonary following the patient closely as well as Nephrology also. Please note the patient presented initially with renal failure as well. The creatinine has improved significantly. PAST MEDICAL HISTORY: Reviewed. REVIEW OF SYSTEMS: Could not be taken. The patient is still on a tracheostomy. CURRENT MEDICATIONS ARE: Reviewed and include: 1. Tylenol 650 q.6 p.r.n. 2. Diamox 500 mg daily. 3. DuoNeb q.i.d. and p.r.n. 4. Zyloprim 200 mg. 5. Aspirin 81 mg daily. 6. Pulmicort 1 mg b.i.d. 7. Rocephin 1 g q.h.s. 8. Peridex. 9. Benadryl. 10.Lexapro 10 mg. 11.Iron sulfate. 12.Lasix 40 mg IV b.i.d. 13.Neurontin. 14.Heparin subcu. 15.Dilaudid. 16.Levemir 60 units subcu b.i.d. 17.Provera 20. 18.Glucophage. 19.Lopressor. 20.Replacement protocol. 21.P.r.n. medications. Protonix 40 daily. 22.Propofol p.r.n. PHYSICAL EXAM: Patient is conscious but unable to respond. Pulse is 109. Blood pressure is 125/86. Respiratory rate 16, temperature is normal. Pulse ox 98% on 45% FIO2. The vent settings are noted. HEENT: Conjunctivae normal. Oral mucosa moist. Neck is tracheostomy. Cardiovascular system: S1, S2 muffled, Respiratory: Breath sounds diminished in the bases. A few scattered rhonchi and crackles. ABDOMEN: Soft, obese, nontender. PEG tube in situ. Legs: Minimal left edema. Nervous system: Higher functions as mentioned earlier. Moves all 4 limbs, otherwise a full exam cannot be conducted. Skin: No ulcer, rash or bleeding. Lymphatics no lymph nodes palpable in the neck, axilla or groin. LAB STUDIES: WBC 5, hemoglobin is 8.7, ABGs noted. Blood sugars are noted. ASSESSMENT: 1. Shortness of breath possibly multifactorial with COPD acute exacerbation as well as CHF acute exacerbation with acute on chronic diastolic dysfunction with acute on chronic hypoxic respiratory failure on mechanical ventilation. 2. Failure to wean status post tracheostomy and PEG tube. 3. Acute renal failure possible prerenal failure with acute tubular necrosis, multifactorial, present on admission. 4. Acute respiratory distress with mechanical ventilation. 5. Hyponatremia. 6. Morbid obesity with body mass index of 56.6. 7. Obesity hypoventilation syndrome. 8. Chronic obstructive pulmonary disease. 9. Congestive heart failure history. 10.Diabetes type 2. 11.Hypertension. 12.Hyperlipidemia. 13.History of degenerative joint disease. 14.History of pneumonia. 15.History of sleep apnea. 16.History of gout. 17.History of peripheral neuropathy. RECOMMENDATIONS AND DISCUSSION: Recommend to continue current medications, management, continue monitoring and symptomatic treatment at this time. We will monitor the patient closely. Continue with the current medications, bronchodilators and antibiotics. Continue the rest of medications. Continue with diuretics. Monitor fluid and electrolytes balance closely. Otherwise stop the insulin drip and start 60 units subcu b.i.d. and Lantus and as well as monitor with blood sugars. Prognosis guarded because of multiple complex medical issues and further recommendations to follow. MMODL / IJN: [id number] /
[2017-10-17 18:55] LABS: Glucose,Whole Blood 190 mg/dL (75-99)
[2017-10-17] MEDS: cefTRIAXone IN SWFI 1,000 MG/10 ML SYRINGE IVP SCH (21:11)
[2017-10-18 00:07] LABS: Glucose,Whole Blood 222 mg/dL (75-99)
[2017-10-18] MEDS: INSULIN ASPART 100 UNIT/ML 1 ML 10 ML VIAL SQ SCH ×4 (00:11→18:40)
[2017-10-18] MEDS: IPRATROPIUM-ALBUTEROL 3 ML NEB INHALATION SCH ×4 (03:17→16:45)
[2017-10-18 06:22] LABS: HCT 28.5 % (34.0-46.0); HGB 8.8 gm/dL (11.4-16.0); Hypochromasia Marked; MCH 27.6 pg (25.0-35.0); MCHC 30.8 g/dL (31.0-37.0); MCV 89.3 fL (80.0-100.0); Mean Platelet Volume 8.1; Platelet Count 297 k/uL (150-450); RBC 3.19 m/uL (3.80-5.40); RDW 15.5 % (11.5-15.5); WBC 4.8 k/uL (3.8-10.6)
[2017-10-18 06:38] LABS: Anion Gap 8 mmol/L; Blood Urea Nitrogen 18 mg/dL (7-17); Calcium 9.2 mg/dL (8.4-10.2); Carbon Dioxide 36 mmol/L (22-30); Chloride 98 mmol/L (98-107); Glucose 237 mg/dL (74-99); Potassium 3.7 mmol/L (3.5-5.1); Sodium 142 mmol/L (137-145)
[2017-10-18] MEDS ORDERED: Potassium Replacement Protocol 1 EACH MISC MISCELLANE PRN (07:01)
[2017-10-18] MEDS ORDERED: Magnesium Replacement Protocol 1 EACH MISC MISCELLANE PRN (07:02)
[2017-10-18 07:09] LABS: Glucose,Whole Blood 236 mg/dL (75-99)
[2017-10-18] MEDS ORDERED: POTASSIUM BICARBONATE/CIT AC 20 MEQ TABLET.EFF NG-TUBE ONE (07:30)
--- NOTE | 2017-10-18 08:03 | XR ---
EXAMINATION TYPE: XR chest 1V portable DATE OF EXAM: 10/18/2017 Comparison: 10/17/2017 Clinical History: 52-year-old female Vented, ICU follow-up Findings: Tracheostomy cannula remains in place. Heart remains mild to moderately enlarged. Diffuse interstitia l prominence and hyperinflation persists. Hazy lower lobe density likely relates to overlying soft ti ssue. Left PICC tip not seen beyond the level of the lower left brachiocephalic vein. Impression: 1. Stable exam with cardiomegaly and suspected underlying COPD. Hazy lower lung densities likely rela te to overlying soft tissue. No acute change. 2. Left PICC tip not seen beyond the lower left brachiocephalic vein level.
--- NOTE | 2017-10-18 08:40 | P.PN ---
Subjective Progress Note Date: 10/18/17 Principal diagnosis: Acute hypercapnic respiratory failure, acute kidney injury, pickwickian syndrome. Progress note dated 10/10/2017 This is a 52-year-old obese female was admitted with a diagnosis of respiratory failure and acute kidney injury. She was admitted on October 07 and was intubated on the . She remains on the ventilator. The patient is initially on BiPAP, but developed tere respiratory failure or car intubation. I think this patient is a patient who would best be suited for early tracheostomy given her multiple episodes of acute respiratory failure her severe COPD her pickwickian syndrome and her sleep apnea syndrome. Currently the patient herself cannot give any additional history as she is now on the ventilator. Vent settings include the assist control mode, rate is 18 tidal volume was 500 FiO2 50% to be dropped down to 40%, PEEP of 5. Blood gases show a PaO2 of 96 a PaCO2 of 59 and a pH of 7.37. She is receiving a saline IV at 1 50 mL an hour norepinephrine at 1 [place] per gram per minute propofol at 50 mics per kilogram per minute insulin drip at 3 units an hour and vital AF with a rate of 45 and a goal of 45. Because of that because of hypernatremia, have to add some free water flushes. Her other medical history includes chronic hypoxemic and hypercapnic respiratory failure secondary to pickwickian syndrome , sleep apnea syndrome, and COPD. In addition, the patient has hypovolemic shock, acute kidney injury secondary to ATN, hypernatremia hypotension insulin- dependent diabetes mellitus COPD morbid obesity sleep apnea syndrome diabetic neuropathy hypertension hyperlipidemia DJD and gout and hypothyroidism. Progress note dated 10/11/2017 This is a 52-year-old obese female who was admitted with a diagnosis of respiratory failure and acute kidney injury. She was admitted on the . She was intubated today later on the . She remains on the ventilator. She' s not made much or any progress. The patient was initially on BiPAP but failed BiPAP. The patient will be evaluated by cardiothoracic surgery for early tracheostomy and PEG tube placement given her many episodes of respiratory failure. In addition to morbid obesity and severe COPD, she has history of pickwickian syndrome and sleep apnea syndrome. Most of the time she is BiPAP dependent. We will do a daily interruption of sedation today and evaluate her for a spontaneous breathing trial. Currently, the patient's on the assist control mode rate of 18, tidal volume 500, FiO2 40%, PEEP of 5. Arterial blood gases show a PaO2 of 68 PaCO2 of 58 and pH 7.39. She's currently on an insulin drip at 4 units an hour saline IV at 100 mL an hour propofol at 50 mics because kilogram per minute and tube feeds with vital AF at 55 with a goal of 55 mL an hour. Progress note dated 10/12/2017 52-year-old obese female admitted with a diagnosis of respiratory failure and acute kidney injury. She was admitted on the . She was intubated later on the . She remains on the ventilator. She has not made any progress despite daily interruption to sedation and spontaneous breathing trials. I did ask thoracic surgery to consider tracheostomy which is apparently planned for tomorrow. The patient was initially on BiPAP failed that. In addition to morbid obesity and severe COPD with multiple episodes of respiratory failure, the patient has a history pickwickian syndrome and sleep apnea syndrome. Most the time when she is here, she is BiPAP dependent. Currently, the patient's ventilator settings are unchanged and include the assist control mode rate of 18 , tidal volume 500, FiO2 40%, PEEP of 5. Blood gases are noted. The patient's on a basic IV and sedation with propofol as well as her tube feeds which is vital AF at 55 with a goal of 55 MLS per hour. Her condition is changed very little since yesterday. Her chest x-ray does show some mild fluid overload and some infiltrates or atelectasis at the lung bases. Today again, we will try a daily eruption of sedation with a spontaneous breathing trial as we do every day. Should she do better today, we will cancel the tracheostomy and PEG tube placement. In addition to the above, she has a history of hypothyroidism, gout , DJD, hyperlipidemia, hypertension, diabetic neuropathy, sleep apnea syndrome, diabetes, and acute tubular necrosis. Progress note dated 10/13/2017 52-year-old obese female admitted with a diagnosis of respiratory failure. She was admitted on the . She was intubated later on the . She remains on the ventilator. She was making no progress. The patient has multiple episodes of admissions to the hospital with hypoxemic and hypercapnic respiratory failure. Because of her lack of progress, the patient underwent a tracheostomy and PEG tube placement yesterday by one of the cardiothoracic surgeons. She seemed to do relatively well today and the plan is to old her sedation and put her on PSV and CPAP. I think she will do relatively well. Her sleep apnea is effectively carried out she has a tracheostomy. I don't know if that will be permanent or not. The patient's currently on the mechanical ventilator. Vent settings include a assist control mode, rate 18 tidal volume 500 FiO2 40% and PEEP of 5. The patient's blood gases show a PaO2 of 65 a PaCO2 of 54 and a pH of 7.42. Her IVs included D5W at 125 mL an hour, propofol at 25 mics per kilogram per minute and an insulin drip at 5 units per hour. Her peak airway pressure is 28 and her minute volume is 10.6. When she is awake, we'll place her on PSV 8 CPAP of 5. Chest x-ray was reviewed. Other than removal of endotracheal tube and placement of the tracheostomy tube, the x-ray looks very similar. Progress note dated 10/14/2017 52-year-old obese female admitted with a diagnosis of respiratory failure. The patient had a tracheostomy and PEG tube done 2 days ago on October 12. The patient was initially admitted on the . She was intubated later on the . She remains on the ventilator was making no progress and hence the tracheostomy and PEG tube placement. She's had multiple episodes of both hypoxemic and hypercapnic respiratory failure. Most of the time she becomes BiPAP dependent. Yesterday she had a daily interruption of sedation with a trial a PSV CPAP and she did okay for about 2 hours. Today, we tried the same but she did very poorly. Put her on PSV 8 CPAP of 5. Today we are going to start her on Provera 20 mg 3 times a day as a respiratory stimulant as well as Diamox 500 mg orally per day. We'll also see if we can get some excess fluid off of her. She is quite edematous and has significant anasarca. We'll add some Lasix 40 mg every 12. In addition, the IV of half normal saline will be switched to KVO. We'll increase free water to 100 mL every 6 hours we will start some insulin at 3 units an hour and she is on vital high protein at 50 mL now with a goal of 59. Current vent settings are the assist control mode rate of 18 tidal volume of 500 FiO2 of 40% and PEEP of 5. Blood gases on that showed a PaO2 of 57 a PaCO2 of 55 and a pH of 7.44. Progress note dated 10/15/2017 The patient is seen again today in follow-up in the intensive care unit. She is currently awake and alert not requiring any sedation. She had her tracheostomy and PEG tube placement done and is currently on the mechanical ventilator, settings of assist control of 18, tidal volume 500, FiO2 45% and a PEEP of 5. Morning blood gases reveal a P O2 of 71, pCO2 61 and a pH of 7.38. She has a 0.45 normal saline at 20 MLS per hour. Insulin drip currently at 6.5 units per hour. She is being nourished with Vital 1.2 at 68 MLS per hour which is her goal. She'll be given another weaning trial and started on a pressure support of 10 and a CPAP of 5. Progress note dated 10/16/2017 The patient is seen again today in follow-up in the intensive care unit. She remains on the mechanical ventilator with current settings of assist control of 18, tidal volume 500, FiO2 45% and a PEEP of 5. Morning blood gases reveal a pO2 of 70, pCO2 70, pH 7.32. She was more hypercapnic today based on the fact that she was on a pressure support of 10 and a PEEP of 5 through most of the night. Chest x-ray reveals basilar infiltrate/atelectasis. She remains on ceftriaxone. She remains off sedation. She is awake and alert in no acute distress. She is currently on a 0.45% normal saline at 20 MLS per hour, insulin drip at 8 units per hour. She is being nourished with Vital 1.2 at 68 MLS per hour which is his goal. On 10/17/2017 patient seen in follow-up in intensive care unit. She has been on CPAP of 5 and pressure support at 10, FiO2 45% since 7:30 this morning. Tolerating it fairly well. Does not appear to be in any acute distress. She is awake, alert, is able to shake her head yes or no to basic questions. Lung sounds are positive for a few scattered rhonchi, no wheezes noted. Patient remains hemodynamically stable, she is not on any pressors, 0.9 normal saline and is infusing at 20 mL an hour. Insulin infusion is going at 8.5 units per hour. Sputum, urine and blood cultures remain negative. She remains on empiric abiotic's in the form of Rocephin. On nebulized treatments, Pulmicort, DuoNeb. She is on IV Lasix at 40 mg every 12 hours. Chest x-ray shows overall stable findings, cardiomegaly and chronic emphysematous change without acute pulmonary process. Feedings are infusing at 60 mL per hour, patient's tolerating them well. No acute events overnight, discharge planning is in progress for [facility] in the next few days. On 10/18/2017 patient seen in the intensive care. She is currently on the vent , assist control mode with a rate of 18, tidal volume of 500, FiO2 45% and PEEP of 5. Yesterday she weaned on CPAP 5, pressure support of 10 and FiO2 45% from 7:30 in the morning, total 2200 at night. For a total of 14-1/2 hours. Tolerated it very well. She was put back on assist control mode for the nights. She is currently not on any drips, 0.9 infusing at 20 ML per hour, tube feedings of vital 1.2 at 60 ML per hour, at goal, and she is tolerating it well. Lung sounds are positive for a few minimal rhonchi, but no wheezes or rales auscultated. Today's chest x-ray has been reviewed by Dr. Christianson and shows stable exam with cardiomegaly with COPD. Hazy lower lung densities, possibly small pleural effusions. No acute pulmonary process noted. Patient remains afebrile, hemodynamically stable. She is awake, alert, follows command. Is able to make her needs known. [facility] is in progress. Microbiology results have been reviewed, urine, sputum and blood cultures remain negative. Patient continues on Rocephin, nebulized treatments, IV Lasix, Provera and Diamox. Objective - Vital Signs Vital signs: Vital Signs Temp 98.6 F 10/18/17 04:00 Pulse 98 10/18/17 05:00 Resp 20 10/18/17 05:00 BP 111/72 10/18/17 05:00 Pulse Ox 92 L 10/18/17 05:00 Intake & Output 10/17/17 10/18/17 10/18/17 18:59 06:59 18:59 Intake Total 2176.164 607 50 Output Total 1870 1230 Balance 306.164 -623 50 Weight 232.4 kg 223 kg Intake: IV 276 267 50 Sodium Chloride 0.45% 1, 240 240 50 000 ml @ 20 mls/hr IV . Q24H SARAH Rx#:[id number] pressure bag 36 27 Intake, IV Titration 258.164 Amount Insulin Regular 100 unit 58.164 In Sodium Chloride 0.9% 100 ml @ Per Protocol IV .Q0M SARAH Rx#:[id number] Magnesium Sulfate-D5w Pmx 200 1 gm In Dextrose/Water 1 100ml.bag @ 100 mls/hr IVPB Q1H SARAH Rx#: [id number] Tube Feeding 952 340 Other 690 Output: Urine 1870 1230 Other: Voiding Method Indwelling Catheter Indwelling Catheter ABP, PAP, CO, CI - Last Documented Arterial Blood Pressure 229/229 - Exam No acute distress, tracheostomy tube in place. The patient is awake and following simple commands.. HEENT examination is grossly unremarkable. Mucous membranes are moist. No oral lesions. Neck supple. Full range of motion. No adenopathy thyromegaly or neck vein distention. Tracheostomy is in place, connected to the ventilator Cardiovascular examination reveals regular rhythm rate. S1-S2 normal. No S3 or S4. No discernible murmur noted. Heart sounds are distant. Lungs reveal a few scattered rhonchi. Breath sounds are diminished. No wheezes or rales. Abdomen obese, and bowel sounds are noted. No masses or tenderness appreciated. PEG tube noted. 2. TF VItal 1.2 infusing at 68 ML per hour, at goal. Extremities are intact. Slight edema noted. Skin is without rash or lesion. Neurologic examination without noted focal deficits - Labs CBC & Chem 7: 10/18/17 06:01 10/18/17 06:01 Labs: Abnormal Lab Results - Last 24 Hours (Table) 10/17/17 10/17/17 10/17/17 Range/Units 10:05 12:28 18:53 RBC (3.80-5.40) m/uL Hgb (11.4-16.0) gm/dL Hct (34.0-46.0) % MCHC (31.0-37.0) g/dL Carbon Dioxide (22-30) mmol/L BUN (7-17) mg/dL Glucose (74-99) mg/dL POC Glucose (mg/dL) 183 H 158 H 190 H (75-99) mg/dL 10/18/17 10/18/17 10/18/17 Range/Units 00:04 06:01 06:01 RBC 3.19 L (3.80-5.40) m/uL Hgb 8.8 L (11.4-16.0) gm/dL Hct 28.5 L (34.0-46.0) % MCHC 30.8 L (31.0-37.0) g/dL Carbon Dioxide 36 H (22-30) mmol/L BUN 18 H (7-17) mg/dL Glucose 237 H (74-99) mg/dL POC Glucose (mg/dL) 222 H (75-99) mg/dL 10/18/17 Range/Units 07:08 RBC (3.80-5.40) m/uL Hgb (11.4-16.0) gm/dL Hct (34.0-46.0) % MCHC (31.0-37.0) g/dL Carbon Dioxide (22-30) mmol/L BUN (7-17) mg/dL Glucose (74-99) mg/dL POC Glucose (mg/dL) 236 H (75-99) mg/dL Assessment and Plan Plan: Assessment: #1 Acute on chronic hypoxemic and hypercapnic respiratory failure secondary to COPD morbid obesity sleep apnea syndrome and pickwickian syndrome #2 Hypovolemic shock, resolved #3 Failure to wean from mechanical ventilation despite daily interruption of sedation and spontaneous breathing trials, status post tracheostomy and PEG tube placement on 10/12/2017 #4 Acute kidney injury, secondary to acute tubular necrosis, improving #5 Hypernatremia, improved, today's sodium is 142 #6 Hypotension, resolved #7 Diabetes mellitus #8 COPD #9 Sleep apnea syndrome #10 Pickwickian syndrome, secondary to morbid obesity. #11 Diabetic neuropathy #12 Hypertension #13 Hyperlipidemia #14 DJD #15 Gout #16 Hypothyroidism Plan: Patient CPAP for a total of 14-1/2 hours yesterday, tolerated well. We will place patient back on CPAP 5/pressure-support at 10 today, continuously, and possibly trach collar later on today. We will discontinue the Rocephin, microbiology results remain negative. Patient is afebrile. Continue nebulized treatments, continue Diamox, continue Provera, continue IV Lasix for now, chest x-ray still shows small pleural effusions. Continue tube feedings. Case management is working on placement of the patient and to the [facility], patient is stable to be transferred to [facility] once a bed becomes available. I performed a history & physical examination of the patient and discussed their management with my nurse practitioner, Tiffany Wang. I reviewed the nurse practitioner's note and agree with the documented findings and plan of care. Lung sounds are a few scattered rhonchi. The findings and the impression was discussed with the patient. I attest to the documentation by the nurse practitioner. Time with Patient: Greater than 30
[2017-10-18] MEDS: HEPARIN SODIUM,PORCINE 5,000 UNIT/ML 1 ML VIAL SQ SCH ×3 (08:41→15:24)
[2017-10-18] MEDS: MAGNESIUM SULFATE-D5W PMX 1 GM in DEXTROSE/WATER 1 100ML.BAG IVPB SCH ×2 (08:41→08:44)
[2017-10-18] MEDS: metFORMIN 500 MG TAB PO SCH ×2 (08:41→17:55)
[2017-10-18] MEDS: METOPROLOL TARTRATE 12.5 MG TAB PO SCH ×2 (08:42→15:24)
[2017-10-18] MEDS: medroxyPROGESTERone 10 MG TABLET PEG/G-TUBE SCH ×2 (08:42→15:24)
[2017-10-18] MEDS: PANTOPRAZOLE 40 MG/10 ML VIAL IV SCH (08:42)
[2017-10-18] MEDS: ASPIRIN 81 MG PO SCH (08:42)
[2017-10-18] MEDS: FUROSEMIDE 10 MG/ML 4 ML VIAL IV SCH (08:43)
[2017-10-18] MEDS: INSULIN DETEMIR 100 UNIT/ML 10 ML VIAL SQ SCH (08:43)
[2017-10-18] MEDS: ALLOPURINOL 100 MG TAB PO SCH (08:43)
[2017-10-18] MEDS: FERROUS SULFATE 325 MG TAB PO SCH (08:44)
[2017-10-18] MEDS: CHLORHEXIDINE GLUCONATE 15 ML CUP MUCOUS MEM SCH (08:44)
[2017-10-18] MEDS: GABAPENTIN 300 MG CAP PO SCH (08:45)
[2017-10-18] MEDS: BUDESONIDE 1 MG/2 ML NEBU INHALATION SCH (08:47)
[2017-10-18] MEDS: SODIUM CHLORIDE 0.45% 1,000 ML IV SCH (08:48)
[2017-10-18] MEDS: PREGABALIN 75 MG CAP PO SCH (08:51)
[2017-10-18] MEDS ORDERED: acetaZOLAMIDE 250 MG TAB PO SCH (09:00)
[2017-10-18 10:02] VITALS: TEMP 98.2
[2017-10-18] MEDS ORDERED: INSULIN DETEMIR 100 UNIT/ML 10 ML VIAL SQ ONE (10:30)
--- NOTE | 2017-10-18 11:42 | DS ---
DISCHARGE SUMMARY FINAL DIAGNOSES: 1. Shortness of breath possibly multifactorial chronic obstructive pulmonary disease acute exacerbation as well as congestive heart failure acute exacerbation with acute on chronic diastolic dysfunction with acute on chronic hypoxic respiratory failure on mechanical ventilation. 2. Status post PEG tube and tracheostomy for a failure to wean. 3. Acute renal failure possible prerenal factors acute tubular necrosis, multifactorial, present on admission. Improving. 4. Acute respiratory distress and acidosis on mechanical ventilation. 5. Hyponatremia. 6. Morbid obesity with body mass index of 56.6. 7. Obesity hypoventilation syndrome. 8. Chronic obstructive pulmonary disease. 9. Diabetes type 2. 10.Hypertension. 11.Hyperlipidemia. 12.History of degenerative joint disease. 13.History of pneumonia. 14.History of sleep apnea. 15.History of gout. 16.Peripheral neuropathy. DISCHARGE DISPOSITION: The patient is being discharged in stable condition. Total time taken 35 minutes. Patient being [facility] to [facility]. HISTORY OF PRESENT ILLNESS: This 52-year-old woman with a past medical history of multiple medical problems was admitted with acute respiratory failure because of above mentioned multiple complex medical issues. Patient mechanically ventilated, intubated. Patient was monitored closely. Patient was treated with bronchodilators and antibiotics and steroids and Dr. Laurent and Pulmonary physicians closely monitoring the patient. Because of failure to wean, the patient underwent PEG tube and tracheostomy placement. The patient being transferred to [facility] for further weaning protocols and further management and evaluation. The prognosis remains guarded, but currently the patient is stable. Please refer to the multiple production consultant notes and documentation for further information. The patient may be referred to the primary physician after discharge. MMODL / IJN: [id number] /
[2017-10-18 12:22] LABS: Glucose,Whole Blood 267 mg/dL (75-99)
[2017-10-18] MEDS: MORPHINE SULFATE 4 MG/ML SYRINGE IVP PRN ×2 (15:26)
[2017-10-18 17:09] VITALS: PULSE 103
[2017-10-18 18:02] VITALS: BP 137/68; RESP 19
[2017-10-18 18:36] LABS: Glucose,Whole Blood 197 mg/dL (75-99)
[2017-10-18] MEDS ORDERED: INSULIN DETEMIR 100 UNIT/ML 10 ML VIAL SQ SCH (21:00)
== END 2017-10-18 21:00 | DRG 4 ==
LOC: EC 20:17 → 6SEL 20:35 → 6ICU 10-08 13:27
PROVIDERS: ADMIT Hospitalist; ATTEND Hospitalist
PROC: 5A1955Z Respiratory Ventilation, Greater than 96 Consecutive Hours (ICD-10-PCS; principal; 2017-10-08)
PROC: 5A09357 Assistance with Respiratory Ventilation, Less than 24 Consecutive Hours, Continuous Positive Airway Pressure (ICD-10-PCS; 2017-10-08)
PROC: 06HM33Z Insertion of Infusion Device into Right Femoral Vein, Percutaneous Approach (ICD-10-PCS; 2017-10-08)
PROC: 03HB33Z Insertion of Infusion Device into Right Radial Artery, Percutaneous Approach (ICD-10-PCS; 2017-10-08)
PROC: 0DH63UZ Insertion of Feeding Device into Stomach, Percutaneous Approach (ICD-10-PCS; 2017-10-12)
PROC: 0B110F4 Bypass Trachea to Cutaneous with Tracheostomy Device, Open Approach (ICD-10-PCS; 2017-10-12 12:15)
PROC: 02HV33Z Insertion of Infusion Device into Superior Vena Cava, Percutaneous Approach (ICD-10-PCS; 2017-10-14)
DX: N17.0 Acute kidney failure with tubular necrosis (principal); R57.1 Hypovolemic shock; J96.21 Acute and chronic respiratory failure with hypoxia; I50.33 Acute on chronic diastolic (congestive) heart failure; J96.22 Acute and chronic respiratory failure with hypercapnia; E87.4 Mixed disorder of acid-base balance; E66.2 Morbid (severe) obesity with alveolar hypoventilation; E87.0 Hyperosmolality and hypernatremia; E87.1 Hypo-osmolality and hyponatremia; J44.1 Chronic obstructive pulmonary disease with (acute) exacerbation; I27.20 Pulmonary hypertension, unspecified; E83.39 Other disorders of phosphorus metabolism; E11.40 Type 2 diabetes mellitus with diabetic neuropathy, unspecified; E03.9 Hypothyroidism, unspecified; T50.2X5A Adverse effect of carbonic-anhydrase inhibitors, benzothiadiazides and other diuretics, initial encounter; T39.395A Adverse effect of other nonsteroidal anti-inflammatory drugs [NSAID], initial encounter; E78.5 Hyperlipidemia, unspecified; E83.42 Hypomagnesemia; F40.240 Claustrophobia; I11.0 Hypertensive heart disease with heart failure; M10.9 Gout, unspecified; M19.90 Unspecified osteoarthritis, unspecified site; Z68.43 Body mass index [BMI] 50.0-59.9, adult; Z79.1 Long term (current) use of non-steroidal anti-inflammatories (NSAID); Z79.4 Long term (current) use of insulin; Z79.82 Long term (current) use of aspirin; Z79.899 Other long term (current) drug therapy; Z99.81 Dependence on supplemental oxygen; Z87.891 Personal history of nicotine dependence; Z87.01 Personal history of pneumonia (recurrent); Y92.9 Unspecified place or not applicable
CPT/HCPCS: 36569; 43246; 71045; 76770; 76937; 80048; 80053; 81001; 82533; 82553; 82805; 83036; 83605; 83735; 83930; 83935; 84100; 84132; 84295; 84484; 84703; 85025; 85027; 87040; 87070; 87086; 87205; 94002; 94003; 94640; 94660; 99285